=== PATIENT | male | born 1975 | race Caucasian/White ===

== ENCOUNTER 2023-04-16 10:06 | Outpatient (OUT) | payer MEDICARE, SELFPAY ==
[2023-04-16 10:28] LABS: Anion Gap 13.1; BUN Creatinine Ratio 13.8; Calcium 8.4 mg/dL (8.5-10.1); Carbon Dioxide 24.9 mmol/L (21.0-32.0); Chloride 101 mmol/L (98-107); Estimated GFR (African America >60 (>=60); Estimated GFR (Non-African Ame >60 (>=60); Glucose 231 mg/dL (74-106); Sodium 135 mmol/L (136-145)
[2023-04-16 10:58] LABS: Estimated Average Glucose 232 mg/dL; Glycohemoglobin A1C 9.7 % (4.5-6.2)
== END 2023-04-16 10:07 | disposition home or self-care (01) ==
LOC: LAB 10:10
PROVIDERS: PCP Nurse Practitioner; Visit Provider Nurse Practitioner
DX: E11.9 Type 2 diabetes mellitus without complications (principal)
CPT/HCPCS: 36415; 80048; 83036

== ENCOUNTER 2023-06-19 10:40 | Outpatient (OUT) | payer MEDICARE, SELFPAY ==
[2023-06-19 11:36] LABS: Alanine Aminotransferase 39 U/L (16-63); Aspartate Amino Transferase 18 U/L (15-37); Cholesterol 146 mg/dL (<=200); HDL Cholesterol 48 mg/dL (40-60); Triglycerides 220 mg/dL (<=150)
== END 2023-06-19 10:41 | disposition home or self-care (01) ==
LOC: LAB 10:44
PROVIDERS: PCP Nurse Practitioner; Visit Provider Nurse Practitioner
DX: E11.9 Type 2 diabetes mellitus without complications (principal)
CPT/HCPCS: 36415; 80061; 84450; 84460

== ENCOUNTER 2023-07-06 08:44 | Outpatient (OUT) | payer MEDICARE, SELFPAY ==
--- NOTE | 2023-07-06 | CT_ITS ---
[address] [address] Patient Name: MANDO SHELBY MRN: [id number] date: 1975 Sex: M Assigned Patient Location: LAB Current Patient Location: Accession/Order Number: [id number] Exam Date: 07/06/2023 09:30 Report Date: 07/07/2023 01:05 At the request of: ASTER OROSCO Procedure: CT chest w con EXAMINATION: CT chest w con HISTORY: LUNG NODULE follow-up COMPARISON: CT chest 12/26/2022 TECHNIQUE: Multi-planar CT images were obtained without and/or with IV contrast as indicated by examination type. Axial, Coronal, and Sagittal images. Dose reduction techniques were achieved by using automated exposure control and/or adjustment of mA and/or kV according to patient size and/or use of iterative reconstruction technique. FINDINGS: LUNGS: Stable 6 mm nodule anterior lateral right lung base adjacent the major fissure. Stable 13 mm partially calcified granuloma within lingula, stable 4 mm adjacent nodule. PLEURA: No mass, effusion, or pneumothorax. VASCULATURE: No abnormality. MAE: No mass or adenopathy. MEDIASTINUM: No mass or adenopathy. CARDIAC: No enlargement, pericardial thickening, or significant calcification. AORTA: No aneurysm or dissection. CHEST WALL: No mass or axillary adenopathy. BONES: No bone lesion or fracture. LIMITED ABDOMEN: No suspicious findings Limited images of the upper abdomen. OTHER: Negative. CT/CT chest w con IMPRESSION: 1. Stable pulmonary nodules detailed above. Consider follow-up CT chest in another 6 months and 12 months to document stability over a two-year period. Electronically authenticated by: LAURA FISH Date: 07/07/2023 01:05
[2023-07-06 09:12] LABS: Estimated GFR (African America >60 (>=60); Estimated GFR (Non-African Ame >60 (>=60)
== END 2023-07-06 08:45 | disposition home or self-care (01) ==
PROVIDERS: PCP Nurse Practitioner; Visit Provider Nurse Practitioner
DX: R91.8 Other nonspecific abnormal finding of lung field (principal)
CPT/HCPCS: 36415; 71260; 82565; Q9967

== ENCOUNTER 2024-06-13 06:34 | Outpatient (OUT) | payer MEDICARE, SELFPAY ==
--- OUTSIDE RECORDS SUMMARY | 2024-06-13 06:37 | XMS_ITS | CCD ---
Author Organization [facility] Care Team Providers Care Longwall Foreman Name Role Phone Baljit Bryant Primary Care Physician AICHHOLZ, REHAB CARE ASSISTANT JOAN Admitting Unavailable AICHHOLZ, REHAB CARE ASSISTANT JOAN Attending Unavailable AICHHOLZ, REHAB CARE ASSISTANT JOAN Primary Care Unavailable AICHHOLZ, REHAB CARE ASSISTANT JOAN Consulting Unavailable ABE, DR LAURA Ribeiro Consulting Unavailable MATHUR ., DR CHASE Admitting Unavailable MATHUR ., DR CHASE Attending Unavailable AICHHOLZ, REHAB CARE ASSISTANT JOAN Primary Care Unavailable MATHUR ., DR CHASE Consulting Unavailable CINTHIA, DARIUSZ Consulting Unavailable AICHHOLZ, REHAB CARE ASSISTANT JOAN Admitting Unavailable AICHHOLZ, REHAB CARE ASSISTANT JONA Attending Unavailable AICHHOLZ, REHAB CARE ASSISTANT JOAN Primary Care Unavailable AICHHOLZ, REHAB CARE ASSISTANT JOAN Consulting Unavailable AICHHOLZ, REHAB CARE ASSISTANT JOAN Admitting Unavailable AICHHOLZ, REHAB CARE ASSISTANT JOAN Attending Unavailable AICHHOLZ, REHAB CARE ASSISTANT JOAN Primary Care Unavailable AICHHOLZ, REHAB CARE ASSISTANT JOAN Consulting Unavailable AICHHOLZ, REHAB CARE ASSISTANT JOAN Admitting Unavailable AICHHOLZ, REHAB CARE ASSISTANT JOAN Attending Unavailable AICHHOLZ, REHAB CARE ASSISTANT JOAN Primary Care Unavailable AICHHOLZ, REHAB CARE ASSISTANT JOAN Consulting Unavailable AICHHOLZ, REHAB CARE ASSISTANT JOAN Admitting Unavailable AICHHOLZ, REHAB CARE ASSISTANT JOAN Attending Unavailable AICHHOLZ, REHAB CARE ASSISTANT JOAN Primary Care Unavailable AICHHOLZ, REHAB CARE ASSISTANT JOAN Consulting Unavailable AICHHOLZ, REHAB CARE ASSISTANT JOAN Admitting Unavailable AICHHOLZ, REHAB CARE ASSISTANT JOAN Attending Unavailable AICHHOLZ, REHAB CARE ASSISTANT JOAN Primary Care Unavailable AICHHOLZ, REHAB CARE ASSISTANT JOAN Consulting Unavailable AICHHOLZ, JOAN J Primary Care Physician Miroslava Griggs Unavailable Unavailable Bryce Gibson Attending Unavailable Esvin Hill Attending Unavailable Esvin Hill Admitting Unavailable Esvin Hill Admitting Unavailable Esvin Hill Attending Unavailable Demarco Ferreira Attending Unavailable Salvatore WOOTEN Admitting Unavailable Salvatore WOOTEN Attending Unavailable Jason West Admitting Unavailable Jason West Attending Unavailable MD Jason West Attending Unavailable MD Jason West Admitting Unavailable Silvio Sharp Consulting Unavailabl e DO Silvio Sharp Consulting Unavail able Silvio Sharp Consulting Unavailabl e Alesha Christensen Admitting Unavailab Alesha Escalona Attending Unavailab Shannon Rush Attending Unavailable Leandra Wallace Referring Unavailable JOAN OROSCO Attending Unavailable JOAN OROSCO Attending Unavailable Demarco Collins Attending Unavailable Demarco Collins Admitting Unavailable Demarco Collins Attending Unavailable Demarco Collins Referring Unavailable MD Jason West Admitting Unavailable MD Jason West Attending Unavailable Silvio Sharp Consulting Unavailkiet e Silvio Sharp Consulting Unavailabl e Silvio Sharp Consulting Unavailabl e Allergies Allergy Classification Reported Allergen(s) Allergy Type Date of Onset Reaction(s) Facility (14 sources) No Known Medication Allergies; Translations: [No Known Medication Allergies] Propensity to adverse reactions (disorder) [facility] Repository Medications Current Medications Medication Drug Class(es) Dates Sig (Normalized) Sig (Original) 0.5 ML tirzepatide 10 MG/ML Auto-Injector [Mounjaro] (2 sources) Start: 11-05-2022 Mounjaro 5 mg/0.5 mL subcutaneous solution Refills(s) 0 Start Date: 11/05/22 Status: Ordered acetaminophen 325 mg oral tablet (1 source) Start: 03-19-2024 take 3 tablets by mouth every six hours acetaminophen 325 mg Tab 975 mg = 3 tab(s), Oral, q6hr, Refills(s) 0 Start Date: 03/19/24 Status: Ordered amoxicillin 875 mg / clavulanate 125 mg oral tablet (1 source) Penicillin-class Antibacterial Start: 11-05-2022 amoxicillin-clavul anate 875 mg-125 mg Tab Refill(s) 0 Start Date: 11/05/22 Status: Ordered atorvastatin 20 mg oral tablet (2 sources) HMG-CoA Reductase Inhibitor Start: 08-14-2023 atorvastatin 20 mg Tab Daily, Refills(s) 0 Start Date: 08/14/23 Status: Ordered busPIRone hydrochloride 5 mg oral tablet (3 sources) Start: 11-01-2022 take 1 mg by mouth twice daily busPIRone 5 mg Tab mg tab(s), Oral, BID, Refills(s) 0 Start Date: 11/01/22 Status: Ordered cephalexin 500 mg oral capsule (1 source) Cephalosporin Antibacterial Start: 11-05-2022 take 1 capsule by mouth every twelve hours Keflex 500 mg Cap 500 mg = 1 cap(s), Oral, q12hr, # 60 caplet(s), Refills(s) 1, Pharmacy: [facility] #[id number], 185, cm, 11/05/22 10:09:00 EST, Height/Length Dosing, 168, kg, 11/05/22 10:09:00 EST, Weight Dosing Start Date: 11/05/22 Status: Ordered docusate sodium 100 mg oral capsule (1 source) Start: 03-19-2024 End: 03-26-2024 take 1 capsule by mouth twice daily docusate sodium 100 mg Cap 100 mg = 1 cap(s), Oral, BID, X 7 day(s), # 14 cap(s), Refills(s) 0, Pharmacy: [facility] #[id number], 185.4, cm, 03/14/24 17:53:00 EDT, Height/Length Dosing, 182, kg, 03/14/24 17:53:00 EDT, Weight Dosing Start Date: 03/19/24 Stop Date: 03/26/24 Status: Ordered glimepiride 4 mg oral tablet (3 sources) Sulfonylurea Start: 11-01-2022 take 1 mg by mouth once daily glimepiride 4 mg Tab mg tab(s), Oral, Daily, Refills(s) 0 Start Date: 11/01/22 Status: Ordered losartan potassium 25 mg oral tablet (3 sources) Angiotensin 2 Receptor Jesus Start: 11-01-2022 take 1 mg by mouth once daily losartan 25 mg Tab mg tab(s), Oral, Daily, Refills(s) 0 Start Date: 11/01/22 Status: Ordered metFORMIN hydrochloride 1000 mg oral tablet (3 sources) Biguanide Start: 11-01-2022 take 1 mg by mouth once daily metformin 1000 mg oral tablet, extended release mg tab(s), Oral, Daily, Refills(s) 0 Start Date: 11/01/22 Status: Ordered minocycline 100 mg oral capsule (3 sources) Tetracycline-class Drug Start: 11-01-2022 take 1 mg by mouth every twelve hours minocycline 100 mg Cap mg cap(s), Oral, q12hr, Refills(s) 0 Start Date: 11/01/22 Status: Ordered Mounjaro 5 mg/0.5 mL subcutaneous solution (1 source) Start: 11-05-2022 Mounjaro 5 mg/0.5 mL subcutaneous solution Refills(s) 0 Start Date: 11/05/22 Status: Ordered 24 hr oxybutynin chloride 5 mg extended release oral tablet (2 sources) Cholinergic Muscarinic Antagonist Start: 08-14-2023 oxybutynin 5 mg ER Tab Daily, Refills(s) 0 Start Date: 08/14/23 Status: Ordered oxyCODONE hydrochloride 5 mg oral tablet (1 source) Opioid Agonist Start: 03-19-2024 End: 03-22-2024 oxyCODONE 5 mg Tab 5 mg = 1 tab(s), Oral, q6hr, PRN Pain 8-10, X 3 day(s), # 12 tab(s), Refills(s) 0, [facility][id number], 185.4, cm, 03/14/24 17:53:00 EDT, Height/Length Dosing, 182, kg, 03/14/24 17:53:00 EDT, Weight Dosing Start Date: 03/19/24 Stop Date: 03/22/24 Status: Ordered 24 hr venlafaxine 75 mg extended release oral capsule (3 sources) Serotonin and Norepinephrine Reuptake Inhibitor Start: 11-01-2022 take 1 mg by mouth once daily venlafaxine 75 mg Cap-ER mg cap(s), Oral, Daily, Refills(s) 0 Start Date: 11/01/22 Status: Ordered Completed/Discontinued Medications Medication Drug Class(es) Dates Sig (Normalized) Sig (Original) insulin glargine 100 unt/ml injectable solution (2 sources) Insulin Analog Start: 03-17-2024 End: 03-18-2024 insulin glargine 100 units/mL SubQ Emilee 10 mL 10 unit(s) = 0.1 mL, Injection-Insulin, SubCutaneous, Start date 03/18/24 9:00:00 PM EDT, 03/15/24 23:25:00 EDT Start Date: 03/18/24 Stop Date: 03/18/24 Status: Completed Insulin Lispro (3 sources) Insulin Analog Start: 03-18-2024 End: 03-18-2024 Insulin Lispro Sliding Scale 0-10 unit(s), Injection-Insulin, SubCutaneous, Start date 03/18/24 9:00:00 PM EDT Start Date: 03/18/24 Stop Date: 03/18/24 Status: Completed Start: 03-05-2024 End: 03-05-2024 Insulin Lispro Sliding Scale 0-10 unit(s), Injection-Insulin, SubCutaneous, Start date 03/05/24 6:00:00 AM EDT Start Date: 03/05/24 Stop Date: 03/05/24 Status: Completed Start: 03-05-2024 End: 03-04-2024 Insulin Lispro Sliding Scale 0-10 unit(s), Injection-Insulin, SubCutaneous, Start date 03/05/24 12:00:00 AM EDT Start Date: 03/05/24 Stop Date: 03/04/24 Status: Completed Problems Active Problems Problem Classification Problem Date Documented Da te Episodic/Chronic Abdominal hernia (10 sources) Hernia of anterior abdominal wall; Translations: [Unspecified abdominal hernia without obstruction or gangrene] Onset: 11-05-2022 Episodic Anxiety disorders (3 sources) Anxiety 11-05-2022 Chronic Diabetes mellitus without complication (7 sources) Type 2 diabetes mellitus; Translations: [Type 2 diabetes mellitus without complications] Onset: 11-27-2022 11-01-2022 Chronic Inflammatory conditions of male genital organs (7 sources) Inflammation of scrotum; Translations: [Inflammatory disorders of scrotum] Onset: 11-05-2022 Episodic Intestinal obstruction without hernia (1 source) Intestinal obstruction; Translations: [Unspecified intestinal obstruction, unspecified as to partial versus complete obstruction] Onset: 03-04-2024 Episodic Other gastrointestinal disorders (1 source) Swollen abdomen; Translations: [Other intra-abdominal and pelvic swelling, mass and lump] Onset: 11-05-2022 Episodic Other gastrointestinal disorders (3 sources) Groin mass 11-05-2022 Episodic Other gastrointestinal disorders (1 source) Other intra-abdominal and pelvic swelling, mass and lump; Translations: [OTH INTRA-ABD PELV SWELL MASS LUMP] Onset: 12-01-2022 Episodic Other lower respiratory disease (4 sources) Solitary pulmonary nodule; Translations: [SOLITARY PULMONARY NODULE] Onset: 12-26-2022 Episodic Other nutritional; endocrine; and metabolic disorders (3 sources) Morbid obesity 11-01-2022 Chronic Other nutritional; endocrine; and metabolic disorders (1 source) Morbid (severe) obesity due to excess calories; Translations: [MORBID SEVERE OBES D/T EXCESS BRIE] Onset: 05-15-2022 Chronic Other skin disorders (4 sources) Hidradenitis suppurativa; Translations: [HIDRADENITIS SUPPURATIVA] Onset: 10-29-2022 Episodic Substance-related disorders (3 sources) Smoker 11-01-2022 Chronic Past or Other Problems Problem Classification Problem Date Documented Da te Episodic/Chronic Skin and subcutaneous tissue infections (4 sources) Cutaneous abscess of right lower limb; Translations: [CUTANEOUS ABSCESS RIGHT LOWER LIMB] Onset: 06-18-2022 Episodic Results Test Name Value Interpretation Reference Range Facility Reminderson 04-16-2024 Reminders Reminders From: Joan Cutler MA To: N - Clinical; Sent: 04/16/2024 15:36:46 EDT Show up: 03/04/2034 15:36:00 EDT Subject: Colonoscopy recall 10 years Reminder/Recall Last colonoscopy: 04/03/2024 Repeat: 10 years Reason: Screening colonoscopy Normal [facility] Operative Reporton Operative Report Operative Report Patient: CHRISTIAN SHELBY Age: 48 years Sex: Male : 1975 Associated Diagnoses: None Author: Demarco Collins MD Pre-Procedure Procedure Date 04/03/2024 07:47:00 . Procedure Type: Esophagogastroduodenoscopy with biopsy. Procedure provider Performed by Demarco Collins MD. Current history and physical Documented on chart. Informed Consent After discussing the rationale, risks and benefits, and alternatives to this procedure, the patient provided signed consent for the procedure. Pre-procedure diagnosis: Upper gastrointestinal bleed: melena while admitted inpatient. ASA Classification: Class III. . Monitoring: See anesthesia record. . Procedure The procedure was performed in the hospital. See anesthesia record for sedation given during procedure. The patient was positioned starting in the left lateral decubitus position. Endoscope type used was an adult-size, introduced orally, advanced to the 3rd portion of the duodenum. No difficulty was encountered during the procedure. Views were excellent. Gastric biopsies were taken of the antrum. Duodenal biopsies were taken of the first portion of the duodenum. The patient tolerated the procedure well. Findings Examination of the esophagus revealed a normal esophagus. The squamocolumnar junction appeared regular. Gastritis was identified at the antrum. The affected area was erosive. The gastritis is mildly severe. Multiple biopsies were collected. Duodenitis was identified at the 1st portion of the duodenum. The duodenitis is moderately severe. Multiple biopsies were collected. Post-Procedure Complications: none. Estimated blood loss: none. Specimens: sent to pathology. Devices/ implants: none left in place. Impression and Plan EGD: Course: Progressing as expected. Normal [facility] Comment on above: Result Comment: Elec tronically Signed By: Demarco Collins MD\.br\Date and Time Signed: 04/10/24 07:50 EDT Operative Report Operative Report Patient: CHRISTIAN SHELBY Age: 48 years Sex: Male : 1975 Associated Diagnoses: None Author: Demarco Collins MD Pre-Procedure Procedure Date 04/03/2024 07:46:00 . Procedure Type: Colonoscopy. Procedure provider Performed by Demarco Collins MD. Current history and physical Documented on chart. Colonoscopy ([id number]) on 04/03/2024 at 48 Years. Comments: 04/03/2024 15:52 Flores Tesfaye RN normal Esophagogastroduodenoscopy ([id number]) on 04/03/2024 at 48 Years. Comments: 04/03/2024 15:53 EDT - Stumbo RN, Flores duodenitis, antral biiopsy Drainage of scrotal abscess ([id number]) on 03/21/2016 at 40 Years. Tonsillectomy ([id number]).. Past Medical History No active or resolved past medical history items have been selected or recorded.. Family History Entire family history is negative.. Procedure History Colonoscopy ([id number]) on 04/03/2024 at 48 Years. Comments: 04/03/2024 15:52 EDT - Rupesh WILHELM, Flores normal Esophagogastroduodenoscopy ([id number]) on 04/03/2024 at 48 Years. Comments: 04/03/2024 15:53 EDT - Rupesh RN, Flores duodenitis, antral biiopsy Drainage of scrotal abscess ([id number]) on 03/21/2016 at 40 Years. Tonsillectomy ([id number]).. Colorectal neoplasm risk assessment Average risk. Informed Consent After discussing the rationale, risks and benefits, and alternatives to this procedure, the patient provided signed consent for the procedure. Pre-procedure diagnosis: No prior colonoscopy. Medications (Selected) Prescriptions Prescribed Carafate 1 gram Tab: 1 gm = 1 tab(s), Oral, QID, X 60 day(s), # 240 tab(s), Refills(s) 0, Pharmacy: [facility] #[id number], 185, cm, 04/03/24 12:38:00 EDT, Height/Length Dosing, 182, kg, 04/03/24 12:38:00 EDT, Weight Dosing Pantoprazole [address] Tab: 20 mg = 1 tab(s), Oral, BID, X 60 day(s), # 120 tab(s), Refills(s) 0, Pharmacy: [facility]/pharmacy #[id number], 185, cm, 04/03/24 12:38:00 EDT, Height/Length Dosing, 182, kg, 04/03/24 12:38:00 EDT, Weight Dosing Documented Medications Documented Farxiga 5 mg oral tablet: 5 mg = 1 tab(s), Oral, Daily, Refills(s) 0 acetaminophen 325 mg Tab: 975 mg = 3 tab(s), Oral, q6hr, Refills(s) 0 atorvastatin 20 mg Tab: Daily, Refills(s) 0, High cholesterol busPIRone 5 mg Tab: mg tab(s), Oral, BID, Refills(s) 0 glimepiride 4 mg Tab: mg tab(s), Oral, Daily, Refills(s) 0 losartan 25 mg Tab: mg tab(s), Oral, Daily, Refills(s) 0 metformin 1000 mg oral tablet, extended release: mg tab(s), Oral, Daily, Refills(s) 0 oxybutynin 5 mg ER Tab: Daily, Refills(s) 0 venlafaxine 75 mg Cap-ER: mg cap(s), Oral, Daily, Refills(s) 0 ASA Classification: Class III. . Monitoring: See anesthesia record. . Procedure The procedure was performed in the hospital. See anesthesia record for sedation given during procedure. Rectal exam was performed and was normal. The patient was positioned starting in the left lateral decubitus position. Endoscope type used was an adult-size. The endoscope was lubricated then introduced through the anus. The scope was advanced to the cecum. No difficulties encountered during the procedure. The bowel preparation quality was good and was adequate (see polyps greater than or equal to 6 millimeters). The patient tolerated the procedure well. Findings The bowel was normal throughout the extent examined. Post-Procedure Complications: none. Estimated blood loss: none. Specimens: none. Devices/ implants: none left in place. Impression and Plan Course: Progressing as expected. Recommendations: Repeat colonoscopy:: In 10 years. Follow-up:: Schedule follow-up with general practitioner in 14 days. Diet:: Regular diet. Medication resumption:: Continue current medications. Return to activities:: After 24 hours. Normal [facility] Comment on above: Result Comment: Elec tronically Signed By: Karina MARTINEZ, Demarco Martins\.br\Date and Time Signed: 04/10/24 07:47 EDT Surgical Pathology Reporton 04-08-2024 Surgical Pathology Report [facility] [address] [place] [address]- Surgical Pathology Report Collected Date/Time: 04/03/2024 15:25 EDT Pathologist: Pola Mcneil MD Received Date/Time: 04/06/2024 09:59 EDT Karina MARTINEZ, Demarco Collins MD, Demarco Simpson Surgical Pathology Report - 04/08/2024 12:58 EDT - Auth (Verified) Final Diagnosis A: SMALL BOWEL, DUODENUM, BIOPSY: - Small bowel mucosa with focal foveolar metaplasia. - No evidence of celiac disease identified. B: STOMACH, ANTRUM, BIOPSY: - Antral and oxyntic- type gastric mucosa with reactive gastropathy. - No Helicobacter pylori microorganisms identified with immunohistochemical stain. (Electronic Signature) Yan. Ewa MD 04/08/2024 12:58 Clinical Information Pre-Op Diagnosis: Screening, nausea Procedure: EGD Specimen(s) Received A: Duodenal biopsy B: Antral biopsy Gross Description A: Received in formalin labeled with patient name, number, and duodenal biopsy are two fragments of raya tissue measuring 0.1and 0.2 cm in greatest dimension. The specimen is entirely submitted in one cassette. B: Received in formalin labeled with patient name, number, and antral biopsy are two fragments of raya tissue measuring 0.2 and 0.4 cm in greatest dimension. The specimen is entirely submitted in one cassette. (DC) DC:[facility] Microscopic Description A&B: Microscopic examination performed unless gross only specified. The use of one or more reagents in the above tests is regulated as an analyte specific reagent (ASR). The test or tests are ordered following initial H&E microscopic examination. The performance characteristics were determined by the [facility]. They have not been cleared or approved by the [place] Food and Drug Administration. The FDA has determined that such clearance or approval is not necessary. These tests are used for clinical purposes. They should not be regarded as investigational or for research. Appropriate positive and negative controls are performed and are acceptable. Normal [facility] Comment on above: Performed By: #### [id number] #### [facility] [address] [place] [address] Main OR Intraoperative Recor don 04-06-2024 Main OR Intraoperative Record Main OR Intraoperative Record IntraOp Document Type FT Summary Primary Physician: Demarco Collins MD Finalized Date/Time: 04/06/24 08:26:26 Pt. Name: CHRISTIAN SHELBY D.O.B./Sex: 1975 Male Med Rec #: [id number] Physician: Demarco Collins MD Financial #: [id number] Pt. Type: O Room/Bed: / Admit/Disch: 04/03/24 13:54:24 - 04/03/24 23:59:59 Institution: Case Times FT Entry 1 Patient Times In Room 04/03/24 15:12:00 Out Room 04/03/24 15:44:00 Procedure Times Start 04/03/24 15:19:00 Stop 04/03/24 15:40:00 Anesthesia Times Start 04/03/24 15:12:00 Stop 04/03/24 15:44:00 Time at [facility] 04/03/24 15:34:00 Last Modified By: Isabel WILHELM, Isatu 04/03/24 15:44:12 General Comments: 1523-EGD completed/AW RN 1527-Colonoscopy started/AW RN 04/06/24 Chart opened to review and send charges [facility]oth CSFA Case Attendance FT Entry 1 Entry 2 Entry 3 Case Attendee Cruzito BOBBY, Demarco Suárez, Rosas Anaya Role Performed Anesthesiologist Staff - Other Scrub - Primary Systems Security Analyst Time In 04/03/24 15:12:00 04/03/24 15:12:00 04/03/24 15:12:00 Time Out 04/03/24 15:44:00 04/03/24 15:44:00 04/03/24 15:44:00 Procedure EGD AND COLONOSCOPY(.) EGD AND COLONOSCOPY(.) EGD AND COLONOSCOPY(.) Comments Dr. Layne supervising help in room Last Modified By: Isabel RN, Isatu Hall RN, Isatu Hall RN, Isatu 04/03/24 15:44:13 04/03/24 15:44:13 04/03/24 15:44:13 Entry 4 Entry 5 Case Attendee Karina MARTINEZ, Demarco Hall RN, Isatu Role Performed Surgeon - Primary Distribution Sales Manager - Primary Time In 04/03/24 15:12:00 04/03/24 15:12:00 Time Out 04/03/24 15:44:00 04/03/24 15:44:00 Procedure EGD AND COLONOSCOPY(.) EGD AND COLONOSCOPY(.) Comments Last Modified By: Isabel RN, Isatu Hall RN, Isatu 04/03/24 15:44:13 04/03/24 15:44:13 Perioperative Protocols FT Pre-Care Text: Implements protective measures prior to operative or invasive procedure, confirms identity before the operative or invasive procedure, verifies operative procedure, surgical site, and laterality Entry 1 Procedure(s) EGD AND COLONOSCOPY(.) Patient Identity Birthday, ID Band Verified (select at Check, Patient least 2): Participation Consents / H and P Anesthesia Consent, Operative Site N/A Verified H&P, Surgery/Procedure Marking Verified Consent Surgical Site No Laterality Verified n/a Verified Procedure Verified Yes Correct Patient Yes Position Verified Availability Equipment, Medication Prep Dry n/a Verified (If Applicable) PreOp Antibiotic No Time Out Cruzito BOBBY, Demarco Wray, Given Participants Nilda Suárez, Rosas Walker, Karina MARTINEZ, Demarco Martins, Isatu Hall RN Time Out Complete 04/03/24 15:15:00 Outcomes Met? Yes Last Modified By: Isatu Hall RN 04/03/24 15:31:05 Post-Care Text: The patient is free from signs and symptoms of injury caused by extraneous objects Allergy Information FT Pre-Care Text: Verifies allergies Entry 1 Allergies Reviewed? Yes Allergies Reviewed Self/Patient With Outcomes Met? Yes Last Modified By: Isatu Hall RN 04/03/24 15:31:20 Post-Care Text: The patient received appropriate medication(s) safely administered during the perioperative period Surgical Procedures FT Entry 1 Procedure Description Procedure EGD AND COLONOSCOPY Modifiers . Surgeon Description EGD with duodenal and antral biopsies. Colonoscopy Primary Procedure Yes Primary Surgeon Demarco Collins MD Start 04/03/24 15:19:00 Stop 04/03/24 15:40:00 Anesthesia Type General Surgical Service General Wound Class 2 - Clean-Contaminated Last Modified By: Isatu Hall RN 04/03/24 15:44:09 General Case Data FT Pre-Care Text: Classifies surgical wound, implements aseptic technique, initiates traffic control Entry 1 Case Information OR ENDO 1 FT Case Level Level 2 Wound Class 2 - Clean-Contaminated Specialty General ASA Class 4 Preop Diagnosis SCREENING & NAUSEA Postop Same As Preop No Postop Diagnosis EGD- duodenitis. Normal Outcomes Met? Yes Colonoscopy Last Modified By: Isatu Hall RN 04/03/24 15:49:08 Post-Care Text: The patient is free from signs and symptoms of infection Skin Assessment (Pre Procedure) FT Pre-Care Text: Implements protective measures to prevent skin/ tissue injury due to thermal or mechanical sources Evaluates for signs and symptoms of physical injury to skin and tissue Entry 1 Skin Integrity Intact, [place], Warm, & Skin Abnormality No Dry Outcomes Met? Yes Last Modified By: Isatu Hall RN 04/03/24 15:34:01 Post-Care Text: The patient is free from signs and symptoms of injury caused by extraneous objects Patient Positioning FT Pre-Care Text: Identifies physical alterations that require additional precautions for procedure-specific positioning, verifies presence of prosthetics or corrective devices, positions the patient, evaluates the patient for signs and symptoms of injury as a (more content not included)... Normal [facility] Discharge Instructionson Discharge Instructions Discharge Instructions CHRISTIAN SHELBY :1975 Visit Date:04/03/2024 Inpatient Discharge Instructions Your Care Team Admitting Physician - Demarco Collins MD Referring Physician - Demarco Collins MD Reason for Your Visit SCREENING & NAUSEA Your Diagnosis Encounter for screening colonoscopy Melena Tests Performed Pathology Tissue Exam -- Results Pending -- Please visit your patient portal for your results or contact your primary care physician. This Is Your Medications List acetaminophen (acetaminophen 325 mg Tab) atorvastatin (atorvastatin 20 mg Tab) busPIRone (busPIRone 5 mg Tab) dapagliflozin (Farxiga 5 mg oral tablet) glimepiride (glimepiride 4 mg Tab) losartan (losartan 25 mg Tab) metformin (metformin 1000 mg oral tablet, extended release) oxybutynin (oxybutynin 5 mg ER Tab) pantoprazole (Pantoprazole [address] Tab) sucralfate (Carafate 1 gram Tab) venlafaxine (venlafaxine 75 mg Cap-ER) Procedure History Colonoscopy (04/03/2024), Esophagogastroduodenoscopy (04/03/2024), Drainage of scrotal abscess (03/21/2016), Tonsillectomy. Discharge Vitals Temperature (Temporal Artery) 36.0 ?C Heart Rate (Monitored) 82 Respiratory Rate 18 Blood Pressure 147/87 Height 185 cm Weight 182 kg What to do next Instructions From Your Doctor No qualifying data available. Previously Scheduled Follow-Up Appointments Saturday 3:00 PM EDT Where: [facility] New Follow Up Appointments after Discharge Follow Up with Karina MARTINEZ, HERIBERTO Payton When: Comments: will call with biopsy results Where: Medications What How Much When Why Instructions Next Dose New pantoprazole (Pantoprazole [address] Tab) 1 Tablets By Mouth 2 times a day Melena Encounter for screening colonoscopy Duration: 60 Days Pickup at [facility]/pharmacy #[id number] New sucralfate (Carafate 1 gram Tab) 1 Tablets By Mouth 4 times a day Melena Encounter for screening colonoscopy Duration: 60 [id number] Unchanged acetaminophen (acetaminophen 325 mg Tab) 3 Tablets By Mouth Every 6 hours Ventral hernia Unchanged atorvastatin (atorvastatin 20 mg Tab) Every day Unchanged busPIRone (busPIRone 5 mg Tab) By Mouth 2 times a day Unchanged dapagliflozin (Farxiga 5 mg oral tablet) 1 Tablets By Mouth Every day Unchanged glimepiride (glimepiride 4 mg Tab) By Mouth Every day Unchanged losartan (losartan 25 mg Tab) By Mouth Every day Unchanged metformin (metformin 1000 mg oral tablet, extended release) By Mouth Every day Unchanged oxybutynin (oxybutynin 5 mg ER Tab) Every day Unchanged venlafaxine (venlafaxine 75 mg Cap-ER) By Mouth Every day Pharmacy Information [facility]/pharmacy #[id number]: [address], [place] [id number] [phone] Test Results No qualifying data available. Allergies No Known Medication Allergies Problems Ongoing - Any problem that you are currently receiving treatment for. Abdominal hernia Anxiety Encounter for screening colonoscopy Left groin mass Melena Morbid obesity Recurrent scrotal infection Scrotal abscess Smoker Type II diabetes mellitus [employer] Duodenitis Duodenitis is inflammation of the lining of the first part of the small intestine (duodenum). It is commonly caused by an infection from bacteria, which may also lead to open sores (ulcers) in the intestine. Duodenitis may develop suddenly and last for a short time (acute), or it may develop gradually and last for months or years (chronic). What are the causes? The most common cause of duodenitis is an infection from a type of bacteria called Helicobacter pylori (H. pylori). Other causes of this condition include: ? Long-term use of NSAIDs. ? Excessive use of alcohol. ? An infection of the small intestine caused by the Giardia parasite (giardiasis). ? Crohn's disease. ? Certain diseases of the body's defense system (immune system). ? Certain treatments for cancer. What increases the risk? The following factors may make you more likely to develop this condition: ? Smoking cigarettes. ? Drinking alcohol. ? Having a family history of duodenitis. ? Taking NSAIDs. ? Eating a high-fat diet. What are the signs or symptoms? Symptoms of this condition may include: ? Gnawing or burning pain in the upper center of the abdomen (epigastric pain). This may get worse when the stomach is empty and may get better after eating. ? Abdominal cramps. ? Nausea and vomiting. ? Bloody vomit. ? Stools that are bloody, dark, or look like tar. ? Diarrhea. ? Weight loss. ? Fatigue. How is this diagnosed? This condition may be diagnosed based on your medical history and a physical exam. You may also have tests, such as: ? Blood tests. ? Stool tests. ? A test that checks the gases in your breath. ? An X-ray that is done after you swallow a liquid (barium) (more content not included)... Normal [facility] Comment on above: Result Comment: Elec tronically Signed By: Flores Goddard RN\.br\Date and Time Signed: 04/03/24 15:59 EDT Inpatient Patient Summaryon 04-03-2024 Inpatient Patient Summary Inpatient Patient Summary [place] [id number] [facility] Clinical Discharge Instructions PERSON INFORMATION Name: CHRISTIAN SHELBY PHYSICIANS Admitting Physician: Demarco Collins MD Attending Physician: Demarco Collins MD PCP: JOAN OROSCO CNP Discharge Diagnosis: Comment: PATIENT EDUCATION INFORMATION Instructions: Upper Endoscopy, Adult, Care After; Colonoscopy, Adult, Care After Medication Leaflets: Follow up: Type Location Start Finish State Trauma Subsequent Follow Up ([facility]) [facility] 04/03/2024 3:00 PM 04/03/2024 3:15 PM Confirmed MEDICATION LIST New Medications [facility]/pharmacy #[id number], [address], [place] [id number], [phone] pantoprazole (Pantoprazole [address] Tab) 1 Tablets By Mouth 2 times a day for 60 Days. Refills: 0. sucralfate (Carafate 1 gram Tab) 1 Tablets By Mouth 4 times a day for 60 Days. Refills: 0. Medications to Continue with No Changes Other Medications acetaminophen (acetaminophen 325 mg Tab) 3 Tablets By Mouth every 6 hours. atorvastatin (atorvastatin 20 mg Tab) every day. busPIRone (busPIRone 5 mg Tab) By Mouth 2 times a day. dapagliflozin (Farxiga 5 mg oral tablet) 1 Tablets By Mouth every day. glimepiride (glimepiride 4 mg Tab) By Mouth every day. losartan (losartan 25 mg Tab) By Mouth every day. metformin (metformin 1000 mg oral tablet, extended release) By Mouth every day. oxybutynin (oxybutynin 5 mg ER Tab) every day. venlafaxine (venlafaxine 75 mg Cap-ER) By Mouth every day. Comment: Normal [facility] Main OR PACU I Recordon 03-10 Main OR PACU I Record Main OR PACU I Record PACU Phase I Document Type FT Summary Primary Physician: Demarco Collins MD Finalized Date/Time: 04/03/24 16:54:21 Pt. Name: CHRISTIAN SHELBY/Sex: 1975 Male Med Rec #: [id number] Physician: Demarco Collins MD Financial #: [id number] Pt. Type: O Room/Bed: / Admit/Disch: 04/03/24 13:54:24 - Institution: Case Times PACU I FT Pre-Care Text: Identifies barriers to communication and implements measures to provide psychological support Develops individualized plan of care, and ensures continuity of care Maintains patient's dignity and privacy, and maintains patient confidentiality Identifies and reports philosophical, cultural, and spiritual beliefs and values Identifies individual values and wishes concerning care Implements aseptic technique, and administers prescribed antibiotic therapy and immunizing agents as ordered Evaluates postoperative tissue perfusion Implements thermoregulation measures, and monitors body temperature Evaluates postoperative respiratory status Evaluates postoperative cardiac status Evaluates postoperative neurological status Assesses pain control, collaborated in initiating patient-controlled analgesia and implements alternative methods of pain control Verifies allergies, administers prescribed medications and solutions, evaluates response to medications Entry 1 In PACU I 04/03/24 15:45:00 Discharge from PACU 04/03/24 16:15:00 I Outcomes Met? Yes Last Modified By: Flores Goddard RN 04/03/24 16:30:15 Post-Care Text: The patient demonstrates knowledge of the expected response to the operative or invasive procedure The patient's care is consistent with the individualized perioperative plan of care The patient's right to privacy is maintained The patient's value system, lifestyle, ethnicity, and culture are considered, respected, and incorporated into the perioperative plan of care The patient participates in decisions affecting his or her perioperative plan of care The patient is free from signs and symptoms of infection The patient has wound/tissue perfusion consistent with or improved from baseline levels established preoperatively The patient is at or returning to normothermia at the conclusion of the immediate postoperative period The patient's respiratory function is consistent with or improved from baseline levels established preoperatively The patient's cardiovascular status is consistent with or improved from baseline levels established preoperatively The patient's cardiovascular status is consistent with or improved from baseline levels established preoperatively The patient demonstrates and/or reports adequate pain control throughout the perioperative period The patient received appropriate medication(s), safely administered during the perioperative period Acuity Level PACU I FT Entry 1 Start Time 04/03/24 15:45:00 Stop Time 04/03/24 16:15:00 Acuity Level Acuity Level I Last Modified By: Flores Goddard RN 04/03/24 16:31:07 Finalized By: Meenakshi Gerber RN Document Signatures Signed By: Flores Goddard RN 04/03/24 16:35 Meenakshi Gerber RN 04/03/24 16:54 Nahomy [facility] Main OR Preoperative Recordo n 04-03-2024 Main OR Preoperative Record Main OR Preoperative Record Holding Area Document Type FT Summary Primary Physician: Demarco Collins MD Finalized Date/Time: 04/03/24 14:32:23 Pt. Name: CHRISTIAN SHELBY /Sex: 1975 Male Med Rec #: [id number] Physician: Demarco Collins MD Financial #: [id number] Pt. Type: O Room/Bed: / Admit/Disch: 04/03/24 13:54:24 - Institution: Case Times Holding FT Pre-Care Text: Verifies consent for planned procedure, identifies individual values and wishes concerning care, includes family members in perioperative teaching Secures patient's records' belongings, and valuables, maintains patient's dignity and privacy, and maintains patient confidentiality Entry 1 In Holding 04/03/24 14:16:00 Outcomes Met? Yes Last Modified By: Cynthia Allen RN 04/03/24 14:23:39 Post-Care Text: The patient participates in decisions affecting his or her perioperative plan of care The patient's right to privacy is maintained Surgery Checklist FT Entry 1 Patient Birthday, ID Band Procedure History and Physical, Identification: Check, Patient Verification: Surgical Consent, With Participation Patient NPO after Midnight: Yes Results Reviewed Clear/yellow Comments: Personal Items None Complaints of Pain: No Comment: Pain Comment: Denies Operative Site n/a Marking: Availability Equipment Verified: Does Patient Smoke No Patient states Yes Comment - Adult postop adult Supervision supervision available Case Cancelled in No Holding Area see comments below for reason Last Modified By: Cynthia Allen RN 04/03/24 14:25:29 General Comments: Pt completed prep at 1130 and remained NPO since/ERYNRN Finalized By: Cynthia Allen RN Document Signatures Signed By: Cynthia Allen RN 04/03/24 14:32 Normal [facility] Outpatient Surgery Discharge Instructionon 04-03-2024 Outpatient Surgery Discharge Instruction Outpatient Surgery Discharge Instruction [place] [id number] Patient Discharge Instructions PERSON INFORMATION Name: CHRISTIAN SHELBY Date of : 1975 Current Date: 04/03/2024 15:54:11 PHYSICIANS Admitting Physician: Demarco Collins MD Discharge Diagnosis: CHRISTIAN SHELBY has been given the following list of follow-up instructions, prescriptions, and patient education materials: IF UNABLE TO CONTACT YOUR PHYSICIAN AND YOU FEEL IT IS AN EMERGENCY, GO TO THE NEAREST EMERGENCY ROOM OR CALL 911 HERON Landry DUANE G, have received the attached patient education materials/instructions and have verbalized understanding: May we do a follow up call? Yes No I was present when discharge instructions were given __ Patient Signature Date Clinican/Nurse Signature Date Follow up: Type Location Start Finish State Trauma Subsequent Follow Up ([facility]) [facility] 04/03/2024 3:00 PM 04/03/2024 3:15 PM Confirmed Pharmacy Information: You may receive a survey from [employer] asking you to rate your care experience. Your feedback is important and will help us understand what we do well and how we can improve the quality of care we provide to you, your loved ones and our community. It?s an honor to serve you. Thank you for choosing [facility] HERE ARE THE MEDICATION CHANGES THAT OCCURRED DURING YOUR HOSPITAL STAY New Medications [facility] #[id number], [address], [place] [id number], [phone] pantoprazole (Pantoprazole [address] Tab) 1 Tablets By Mouth 2 times a day for 60 Days. Refills: 0. sucralfate (Carafate 1 gram Tab) 1 Tablets By Mouth 4 times a day for 60 Days. Refills: 0. Medications to Continue with No Changes Other Medications acetaminophen (acetaminophen 325 mg Tab) 3 Tablets By Mouth every 6 hours. atorvastatin (atorvastatin 20 mg Tab) every day. busPIRone (busPIRone 5 mg Tab) By Mouth 2 times a day. dapagliflozin (Farxiga 5 mg oral tablet) 1 Tablets By Mouth every day. glimepiride (glimepiride 4 mg Tab) By Mouth every day. losartan (losartan 25 mg Tab) By Mouth every day. metformin (metformin 1000 mg oral tablet, extended release) By Mouth every day. oxybutynin (oxybutynin 5 mg ER Tab) every day. venlafaxine (venlafaxine 75 mg Cap-ER) By Mouth every day. PATIENT EDUCATION INFORMATION Instructions: Upper Endoscopy, Adult, Care After After the procedure, it is common to have a sore throat. It is also common to have: ? Mild stomach pain or discomfort. ? Bloating. ? Nausea. Follow these instructions at home: The instructions below may help you care for yourself at home. Your health care provider may give you more instructions. If you have questions, ask your health care provider. ? If you were given a sedative during the procedure, it can affect you for several hours. Do not drive or operate machinery until your health care provider says that it is safe. ? If you will be going home right after the procedure, plan to have a responsible adult: ? Take you home from the hospital or clinic. You will not be allowed to drive. ? Care for you for the time you are told. ? Follow instructions from your health care provider about what you may eat and drink. ? Return to your normal activities as told by your health care provider. Ask your health care provider what activities are safe for you. ? Take [id number]-nhewvwy and prescription medicines only as told by your health care provider. Contact a health care provider if you: ? Have a sore throat that lasts longer than one day. ? Have trouble swallowing. ? Have a fever. Get help right away if you: ? Vomit blood or your vomit looks like coffee grounds. ? Have bloody, black, or tarry stools. ? Have a very bad sore throat or you cannot swallow. ? Have difficulty breathing or very bad pain in your chest or abdomen. These symptoms may be an emergency. Get help right away. Call 911. ? Do not wait to see if the symptoms will go away. ? Do not drive yourself to the hospital. Summary ? After the procedure, it is common to have a sore throat, mild stomach discomfort, bloating, and nausea. ? If you were given a sedative during the procedure, it can affect you for several hours. Do not drive until your health care provider says that it is safe. ? Follow instructions from your health care provider about what you may eat and drink. ? Return to your normal activities as told by your health care provider. This information is not intended to replace advice given to you by your health care pro (more content not included)... Normal [facility] Trauma Office/Clinic Noteon 03-26-2024 Trauma Office/Clinic Note Trauma Office/Clinic Note Chief Complaint Wound check HPI Staff Christian is a 48 y.o. male here for wound check Patient admitted 03/15/24 to EGS after multiple ER visits for abdominal pain. Known ventral hernia HOSPITAL COURSE: 03/14/2024: Admitted for observation, pain improved 03/15/2024: Taken to OR for ex-lap, lysis of adhesions, resection of hernia sac, primary repair of ventral hernia, bilateral TAP blocks 03/16/2024: +flatus, +nausea but no vomiting. on CARDIOLOGY RN for pain 03/17/2024: tolerating diet, +BM 03/18/2024: melanotic stool and downtrending H/H 03/19/2024: H/H stable, pt set up for outpatient colonoscopy/EGD with Dr. Collins. Pt advancing as expected, tolerating regular diet, no N/V. Pain well controlled, ambulating unassisted, voiding spontaneously. Pt is medically cleared for DC at this time. Patient denies excessive bleeding/pain/discharge/feve r/chills. History of Present Illness 40-year-old male status post primary ventral hernia repair, here for wound check Patient states that the Prevena wound VAC battery a couple of days ago but he was not try to take it off so he left it on. Patient states he has been having the cc or less of drainage from his GHULAM drain for the last few days. has been keeping track and she did bring record with her. Drain has not been obtained since yesterday and currently there is only roughly 10 cc of serous drainage in the bulb. Patient describes mild abdominal cramping and a burning sensation near the incision but otherwise no significant abdominal pain. Having regular bowel movements, no fevers or chills, no nausea or vomiting. Patient is scheduled to have an EGD and colonoscopy next week with Dr. Collins. Review of Systems All organ systems are reviewed. Pertinent positive and negative findings as mentioned in the HPI. Physical Exam Vitals & Measurements T: 36.6 ?C(Oral) HR: 118(Peripheral) BP: 138/70 HT: 73 in HT: 185 cm WT: 182 kg WT: 400.4 lb BMI: 53.18 GENERAL: alert, pleasant, conversational. HEENT: normocephalic. oral mucosa moist. CARDIOVASCULAR: RRR. PULMONARY: CTAB. breathing comfortably on room air ABDOMINAL: Abdomen is soft, nontender. Midline incision clean, dry, intact with henrique in place underlying the Prevena wound VAC which was removed today. 3 proximal henrique removed and there was a mild wound dehiscence with a small amount of underlying hematoma. The wound was probed using cotton-tipped swab does not appear to track at this time. Remainder of henrique to remain in place until next week. GHULAM drain with 10 cc blood-tinged serosanguineous output, removed at bedside, patient tolerated well. EXTREMITIES: moves all extremities with equal strength NEUROLOGICAL: AxO x3 Assessment/Plan 40-year-old male status post primary ventral hernia repair, here for wound check -Patient advancing as expected. Wound VAC removed today at bedside, underlying incision clean and dry. A few henrique removed and there was mild dehiscence, remainder of henrique remain in place. Will perform wound check next week. Patient having EGD and colonoscopy next Saturday, will plan to remove henrique at that time. -Patient educated on weight lifting restrictions -GHULAM drain removed at bedside today, patient tolerated well. Patient has been having 30 cc or less of output but for the last couple days. -Visually upon arrival to the office patient was hypertensive and tachycardic, patient expresses he has a fear of doctors offices and is very nervous and this response is normal for him. States that his blood pressure and heart rate are always high when he is in the doctor's office. After resting the office vital signs did improve on my exam Leandra Wallace PA-C Trauma Surgery/Surgical Critical Care/Emergency General Surgery Follow-up No qualifying data available Problem List/Past Medical History Ongoing Abdominal hernia Anxiety Encounter for screening colonoscopy Left groin mass Melena Morbid obesity Recurrent scrotal infection Scrotal abscess Smoker Type II diabetes mellitus Historical No qualifying data Procedure/Surgical History Drainage of scrotal abscess (03/21/2016), Tonsillectomy. Medications acetaminophen 325 mg Tab, 975 mg= 3 tab(s), Oral, q6hr atorvastatin 20 mg Tab, Daily busPIRone 5 mg Tab, Oral, BID docusate sodium 100 mg Cap, 100 mg= 1 cap(s), Oral, BID Farxiga 5 mg oral tablet, 5 mg= 1 tab(s), Oral, Daily glimepiride 4 mg Tab, Oral, Daily losartan 25 mg Tab, Oral, Daily metformin 1000 mg oral tablet, extended release, Oral, Daily oxybutynin 5 mg ER Tab, Daily venlafaxine 75 mg Cap-ER, Oral, Daily Allergies No Known Medication Allergies Social History Alcohol Substance Abuse - High Risk, 03/04/2024 Current, Marijuana, Daily, 08/14/2023 Marijuana, 08/13/2023 Current, 08/13/2023 Marijuana, 08/13/2023 Tobacco Former smoker, quit more than 30 days ago Tobacco Use:., 03/25/2024 Former smoker, quit more than 30 days ago Tobacco Use:. Cigar (more content not included)... Normal [facility] Comment on above: Result Comment: Elec tronically Signed By: Madison BEAN, Leandra Del Rosario\.br\Date and Time Signed: 03/25/24 10:23 EDT\.br\Electronically Co-Signed By: Amparo MARTINEZ, Alesha Wray\.br\Date and Time Co-Signed: 03/26/24 14:28 EDT BMPon 03-19-2024 Anion gap [Moles/Vol] 8 mmol/L Normal 6-16 [facility] Comment on above: Performed By: #### 2 [id number] #### [facility] [address] [place] [address] Calcium [Mass/Vol] 7.7 mg/dL Low 8.9-11.1 [facility] Comment on above: Performed By: #### 2 [id number] #### [facility] [address] [place] [address] Chloride [Moles/Vol] 105 mmol/L Normal 101-111 [facility] Comment on above: Performed By: #### 2 [id number] #### [facility] [address] [place] [address] CO2 [Moles/Vol] 28 mmol/L Normal 21-31 [facility] Comment on above: Performed By: #### 2 [id number] #### [facility] [address] [place] [address] Creatinine [Mass/Vol] 0.5 mg/dL Normal 0.5-1.3 [facility] Comment on above: Performed By: #### 2 [id number] #### [facility] [address] [place] [address] Glucose [Mass/Vol] 197 mg/dL Normal 55-199 [facility] Comment on above: Performed By: #### 2 [id number] #### [facility] [address] [place] [address] Potassium [Moles/Vol] 3.3 mmol/L Low 3.5-5.3 [facility] Comment on above: Performed By: #### 2 [id number] #### [facility] [address] [place] [address] Sodium [Moles/Vol] 138 mmol/L Normal 135-145 [facility] Comment on above: Performed By: #### 2 [id number] #### [facility] [address] [place] [address] Urea nitrogen [Mass/Vol] 9 mg/dL Normal 5-21 [facility] Comment on above: Performed By: #### 2 [id number] #### [facility] [address] [place] [address] Urea nitrogen/Creatinine [Mass ratio] 18 No Units Normal 10-20 [facility] Comment on above: Performed By: #### 2 [id number] #### [facility] [address] [place] [address] CBC w/ Auto Diffon 4 Basophils/100 WBC (Bld) 0.4 % Normal 0.0-2.0 [facility] Comment on above: Performed By: #### 2 [id number] #### [facility] [address] [place] [address] Basophils/Leukocytes Auto (Bld) [Pure # fraction] 0.0 E9/L Normal 0.0-0.2 [facility] Comment on above: Performed By: #### 2 [id number] #### [facility] [address] [place] [address] Eosinophils (Bld) [#/Vol] 0.1 E9/L Normal 0.0-0.5 [facility] Comment on above: Performed By: #### 2 [id number] #### [facility] [address] [place] [address] Eosinophils/100 WBC (Bld) 1.1 % Normal 0.0-8.0 [facility] Comment on above: Performed By: #### 2 [id number] #### [facility] [address] [place] [address] Erythrocyte distribution width (RBC) [Ratio] 15.8 % High 10.9-14.2 [facility] Comment on above: Performed By: #### 2 [id number] #### [facility] [address] [place] [address] Hematocrit (Bld) [Volume fraction] 28.8 % Low 37.7-49.0 [facility] Comment on above: Performed By: #### 2 [id number] #### [facility] [address] [place] [address] Hemoglobin (Bld) [Mass/Vol] 9.3 g/dL Low 13.5-17.5 [facility] Comment on above: Performed By: #### 2 [id number] #### [facility] [address] [place] [address] Lymphocytes (Bld) [#/Vol] 1.6 E9/L Normal 1.0-4.0 [facility] Comment on above: Performed By: #### 2 [id number] #### [facility] [address] [place] [address] Lymphocytes/100 WBC (Bld) 13.9 % Low 14.0-50.0 [facility] Comment on above: Performed By: #### 2 [id number] #### [facility] [address] [place] [address] MCH (RBC) [Entitic mass] 27.6 pg Normal 27.0-34.0 [facility] Comment on above: Performed By: #### 2 [id number] #### [facility] [address] [place] [address] MCHC (RBC) [Mass/Vol] 32.2 g/dL Normal 31.4-36.0 [facility] Comment on above: Performed By: #### 2 [id number] #### [facility] [address] [place] [address] MCV (RBC) [Entitic vol] 85.7 fL Normal 80.0-100.0 [facility] Comment on above: Performed By: #### 2 [id number] #### [facility] [address] [place] [address] Monocytes (Bld) [#/Vol] 1.0 E9/L Normal 0.2-1.0 [facility] Comment on above: Performed By: #### 2 [id number] #### [facility] [address] [place] [address] Neutrophils (Bld) [#/Vol] 8.9 E9/L High 2.0-7.5 [facility] Comment on above: Performed By: #### 2 [id number] #### [facility] [address] [place] [address] Neutrophils/100 WBC (Bld) 76.1 % High 36.0-75.0 [facility] Comment on above: Performed By: #### 2 [id number] #### [facility] [address] [place] [address] Platelet mean volume (Bld) [Entitic vol] 7.3 fL Normal 6.4-10.8 [facility] Comment on above: Performed By: #### 2 [id number] #### [facility] [address] [place] [address] Platelets (Bld) [#/Vol] 357.0 E9/L Normal 150.0-500. 0 [facility] Comment on above: Performed By: #### 2 647481 #### [facility] [address] [place] [address] RBC (Bld) [#/Vol] 3.4 E12/L Low 4.3-5.9 [facility] Comment on above: Performed By: #### 2 [id number] #### [facility] [address] [place] [address] WBC corrected for nucl RBC Auto (Bld) [#/Vol] 11.7 E9/L High 4.0-11.0 [facility] Comment on above: Performed By: #### 2 964425 #### [facility] [address] [place] [address] Basophils/100 WBC (Bld) 0.5 % Normal 0.0-2.0 [facility] Comment on above: Performed By: #### 2 [id number] #### [facility] [address] [place] [address] Basophils/Leukocytes Auto (Bld) [Pure # fraction] 0.1 E9/L Normal 0.0-0.2 [facility] Comment on above: Performed By: #### 2 976180 #### [facility] [address] [place] [address] Eosinophils (Bld) [#/Vol] 0.2 E9/L Normal 0.0-0.5 [facility] Comment on above: Performed By: #### 2 [id number] #### [facility] [address] [place] [address] Eosinophils/100 WBC (Bld) 1.3 % Normal 0.0-8.0 [facility] Comment on above: Performed By: #### 2 194061 #### [facility] [address] [place] [address] Erythrocyte distribution width (RBC) [Ratio] 15.9 % High 10.9-14.2 [facility] Comment on above: Performed By: #### 2 513203 #### [facility] [address] [place] [address] Hematocrit (Bld) [Volume fraction] 28.2 % Low 37.7-49.0 [facility] Comment on above: Performed By: #### 2 695347 #### [facility] [address] [place] [address] Hemoglobin (Bld) [Mass/Vol] 9.3 g/dL Low 13.5-17.5 [facility] Comment on above: Performed By: #### 2 510666 #### [facility] [address] [place] [address] Lymphocytes (Bld) [#/Vol] 1.8 E9/L Normal 1.0-4.0 [facility] Comment on above: Performed By: #### 2 113102 #### [facility] [address] [place] [address] Lymphocytes/100 WBC (Bld) 15.8 % Normal 14.0-50.0 [facility] Comment on above: Performed By: #### 2 [id number] #### [facility] [address] [place] [address] MCH (RBC) [Entitic mass] 27.9 pg Normal 27.0-34.0 [facility] Comment on above: Performed By: #### 2 233508 #### [facility] [address] [place] [address] MCHC (RBC) [Mass/Vol] 32.9 g/dL Normal 31.4-36.0 [facility] Comment on above: Performed By: #### 2 771681 #### [facility] [address] [place] [address] MCV (RBC) [Entitic vol] 84.9 fL Normal 80.0-100.0 [facility] Comment on above: Performed By: #### 2 [id number] #### [facility] [address] [place] [address] Monocytes (Bld) [#/Vol] 1.0 E9/L Normal 0.2-1.0 [facility] Comment on above: Performed By: #### 2 [id number] #### [facility] [address] [place] [address] Neutrophils (Bld) [#/Vol] 8.6 E9/L High 2.0-7.5 [facility] Comment on above: Performed By: #### 2 385556 #### [facility] [address] [place] [address] Neutrophils/100 WBC (Bld) 74.1 % Normal 36.0-75.0 [facility] Comment on above: Performed By: #### 2 418908 #### [facility] [address] [place] [address] Platelet 384.0 E9/L Normal 150.0-500. 0 [facility] Comment on above: Performed By: #### 2 [id number] #### [facility] [address] [place] [address] Platelet mean volume (Bld) [Entitic vol] 7.3 fL Normal 6.4-10.8 [facility] Comment on above: Performed By: #### 2 629834 #### [facility] [address] [place] [address] RBC (Bld) [#/Vol] 3.3 E12/L Low 4.3-5.9 [facility] Comment on above: Performed By: #### 2 694440 #### [facility] [address] [place] [address] WBC corrected for nucl RBC Auto (Bld) [#/Vol] 11.6 E9/L High 4.0-11.0 [facility] Comment on above: Performed By: #### 2 764251 #### [facility] [address] [place] [address] Basophils/100 WBC (Bld) 0.5 % Normal 0.0-2.0 [facility] Comment on above: Performed By: #### 2 583053 #### [facility] [address] [place] [address] Basophils/Leukocytes Auto (Bld) [Pure # fraction] 0.0 E9/L Normal 0.0-0.2 [facility] Comment on above: Performed By: #### 2 [id number] #### [facility] [address] [place] [address] Eosinophils (Bld) [#/Vol] 0.2 E9/L Normal 0.0-0.5 [facility] Comment on above: Performed By: #### 2 808511 #### [facility] [address] [place] [address] Eosinophils/100 WBC (Bld) 2.2 % Normal 0.0-8.0 [facility] Comment on above: Performed By: #### 2 391946 #### [facility] [address] [place] [address] Erythrocyte distribution width (RBC) [Ratio] 16.2 % High 10.9-14.2 [facility] Comment on above: Performed By: #### 2 541500 #### [facility] [address] [place] [address] Hematocrit (Bld) [Volume fraction] 26.3 % Low 37.7-49.0 [facility] Comment on above: Performed By: #### 2 610327 #### [facility] [address] [place] [address] Hemoglobin (Bld) [Mass/Vol] 8.9 g/dL Low 13.5-17.5 [facility] Comment on above: Performed By: #### 2 622904 #### [facility] [address] [place] [address] Lymphocytes (Bld) [#/Vol] 2.3 E9/L Normal 1.0-4.0 [facility] Comment on above: Performed By: #### 2 867394 #### [facility] [address] [place] [address] Lymphocytes/100 WBC (Bld) 21.8 % Normal 14.0-50.0 [facility] Comment on above: Performed By: #### 2 405804 #### [facility] [address] [place] [address] MCH (RBC) [Entitic mass] 28.6 pg Normal 27.0-34.0 [facility] Comment on above: Performed By: #### 2 773882 #### [facility] [address] [place] [address] MCHC (RBC) [Mass/Vol] 34.0 g/dL Normal 31.4-36.0 [facility] Comment on above: Performed By: #### 2 492521 #### [facility] [address] [place] [address] MCV (RBC) [Entitic vol] 84.3 fL Normal 80.0-100.0 [facility] Comment on above: Performed By: #### 2 498121 #### [facility] [address] [place] [address] Monocytes (Bld) [#/Vol] 0.9 E9/L Normal 0.2-1.0 [facility] Comment on above: Performed By: #### 2 225046 #### [facility] [address] [place] [address] Neutrophils (Bld) [#/Vol] 7.0 E9/L Normal 2.0-7.5 [facility] Comment on above: Performed By: #### 2 014140 #### [facility] [address] [place] [address] Neutrophils/100 WBC (Bld) 66.9 % Normal 36.0-75.0 [facility] Comment on above: Performed By: #### 2 017101 #### [facility] [address] [place] [address] Platelet 349.0 E9/L Normal 150.0-500. 0 [facility] Comment on above: Performed By: #### 2 [id number] #### [facility] [address] [place] [address] Platelet mean volume (Bld) [Entitic vol] 7.2 fL Normal 6.4-10.8 [facility] Comment on above: Performed By: #### 2 055271 #### [facility] [address] [place] [address] RBC (Bld) [#/Vol] 3.1 E12/L Low 4.3-5.9 [facility] Comment on above: Performed By: #### 2 134635 #### [facility] [address] [place] [address] WBC corrected for nucl RBC Auto (Bld) [#/Vol] 10.4 E9/L Normal 4.0-11.0 [facility] Comment on above: Performed By: #### 2 637354 #### [facility] [address] [place] [address] CHEMISTRYOrdered By: Lab ROP User on 03-19-2024 Glucose [Mass/Vol] 253 mg/dL High 55 - 99 mg/dL [facility] [place] Comment on above: Result Comment: Isabelle MARES POC Device SN [id number] 1 Invalid Interpretation Code [facility] POC Subsection POC User ID [id number] 1 Invalid Interpretation Code [facility] POC Subsection POC Username JAMISON COTO Invalid Interpretation Code [facility] POC Subsection Glucose [Mass/Vol] 189 mg/dL High 55 - 99 mg/dL [facility] POC Subsection Comment on above: Result Comment: Isabelle MARES POC Device SN [id number] 1 Invalid Interpretation Code [facility] POC Subsection POC User ID [id number] 1 Invalid Interpretation Code [facility] POC Subsection POC Username JAMISON COTO Invalid Interpretation Code [facility] POC Subsection Glucose [Mass/Vol] 202 mg/dL High 55 - 99 mg/dL [facility] [place] Subsection Comment on above: Result Comment: Isabelle MARES POC Device SN [id number] 1 Invalid Interpretation Code [facility] [place] Sub[place] POC User ID [id number] 1 Invalid Interpretation Code [facility] Subsection POC Username JAMISON COTO Invalid Interpretation Code [facility] [place] Subsection CHEMISTRYOrdered By: SYSTEM SYSTEM on 03-19-2024 Anion gap [Moles/Vol] 8 mmol/L Normal 6 - 16 mEq/L [facility] Calcium [Mass/Vol] 7.7 mg/dL Low 8.9 - 11. 1 mg/dL [facility] Chloride [Moles/Vol] 105 mmol/L Normal 101 - 1 11 mmol/L [facility] CO2 [Moles/Vol] 28 mmol/L Normal 21 - 31 mmol/L [facility] Creatinine [Mass/Vol] 0.5 mg/dL Normal 0.5 - 1.3 mg/dL [facility] eGFR 125 mL/min/1.73 m2 Normal >=59mL/mi n /1.73 m2 [facility] Glucose [Mass/Vol] 197 mg/dL Normal 55 - 199 mg/dL [facility] Magnesium [Mass/Vol] 1.9 mg/dL Normal 1.3 - 2 .4 mg/dL [facility] Phosphate [Mass/Vol] 2.2 mg/dL Normal 1.9 - 4 .6 mg/dL [facility] Potassium [Moles/Vol] 3.3 mmol/L Low 3.5 - 5.3 mmol/L [facility] Sodium [Moles/Vol] 138 mmol/L Normal 135 - 145 mmol/L [facility] Urea nitrogen [Mass/Vol] 9 mg/dL Normal 5 - 21 mg/dL [facility] Urea nitrogen/Creatinine [Mass ratio] 18 mg/mg Normal 10 - 20 [facility] Capillary Glucose POCon 03-09 Glucose [Mass/Vol] 253 mg/dL High 55-99 [facility] Comment on above: Result Comment: Isabelle MARES Performed By: #### 2 [id number] ####[facility] [id number] [place] [address] Glucose [Mass/Vol] 189 mg/dL High 55-99 [facility] Comment on above: Result Comment: Isabelle MARES Performed By: #### 2 [id number] #### [facility] [address] [place] [address] Glucose [Mass/Vol] 202 mg/dL High 55-99 [facility] Comment on above: Result Comment: Isabelle MARES Performed By: #### 2 [id number] #### [facility] [address] [place] [address] HEMATOLOGYOrdered By: SYSTEM SYSTEM on 03-19-2024 Basophils/100 WBC (Bld) 0.4 % Normal 0.0 - 2.0 % [facility] Basophils/Leukocytes Auto (Bld) [Pure # fraction] 0.0 E9/L Normal 0.0 - 0.2 E9/L [facility] Eosinophils (Bld) [#/Vol] 0.1 E9/L Normal 0.0 - 0.5 E9/L [facility] Eosinophils/100 WBC (Bld) 1.1 % Normal 0.0 - 8.0 % [facility] Erythrocyte distribution width (RBC) [Ratio] 15.8 % High 10.9 - 14.2 % [facility] Hematocrit (Bld) [Volume fraction] 28.8 % Low 37.7 - 49.0 % [facility] Hemoglobin (Bld) [Mass/Vol] 9.3 g/dL Low 13.5 - 17.5 gm/dL [facility] Lymphocytes (Bld) [#/Vol] 1.6 E9/L Normal 1.0 - 4.0 E9/L [facility] Lymphocytes/100 WBC (Bld) 13.9 % Low 14.0 - 50.0 % [facility] MCH (RBC) [Entitic mass] 27.6 pg Normal 27.0 - 34.0 pg [facility] MCHC (RBC) [Mass/Vol] 32.2 g/dL Normal 31.4 - 36.0 gm/dL [facility] MCV (RBC) [Entitic vol] 85.7 fL Normal 80.0 - 100.0 fL [facility] Monocytes (Bld) [#/Vol] 1.0 E9/L Normal 0.2 - 1.0 E9/L [facility] Monocytes/100 WBC (Bld) 8.5 % Normal 4.0 - 14.0 % [facility] Neutrophils (Bld) [#/Vol] 8.9 E9/L High 2.0 - 7.5 E9/L [facility] Neutrophils/100 WBC (Bld) 76.1 % High 36.0 - 75.0 % [facility] Platelet mean volume (Bld) [Entitic vol] 7.3 fL Normal 6.4 - 10.8 fL [facility] Platelets (Bld) [#/Vol] 357.0 E9/L Normal 150.0 - 500.0 E9/L [facility] RBC (Bld) [#/Vol] 3.4 E12/L Low 4.3 - 5.9 E12/L [facility] WBC corrected for nucl RBC Auto (Bld) [#/Vol] 11.7 E9/L High 4.0 - 11.0 E9/L [facility] Basophils/100 WBC (Bld) 0.5 % Normal 0.0 - 2.0 % [facility] Basophils/Leukocytes Auto (Bld) [Pure # fraction] 0.1 E9/L Normal 0.0 - 0.2 E9/L [facility] Eosinophils (Bld) [#/Vol] 0.2 E9/L Normal 0.0 - 0.5 E9/L [facility] Eosinophils/100 WBC (Bld) 1.3 % Normal 0.0 - 8.0 % [facility] Erythrocyte distribution width (RBC) [Ratio] 15.9 % High 10.9 - 14.2 % [facility] Hematocrit (Bld) [Volume fraction] 28.2 % Low 37.7 - 49.0 % [facility] Hemoglobin (Bld) [Mass/Vol] 9.3 g/dL Low 13.5 - 17.5 gm/dL [facility] Lymphocytes (Bld) [#/Vol] 1.8 E9/L Normal 1.0 - 4.0 E9/L [facility] Lymphocytes/100 WBC (Bld) 15.8 % Normal 14.0 - 50.0 % [facility] MCH (RBC) [Entitic mass] 27.9 pg Normal 27.0 - 34.0 pg [facility] MCHC (RBC) [Mass/Vol] 32.9 g/dL Normal 31.4 - 36.0 gm/dL [facility] MCV (RBC) [Entitic vol] 84.9 fL Normal 80.0 - 100.0 fL [facility] Monocytes (Bld) [#/Vol] 1.0 E9/L Normal 0.2 - 1.0 E9/L [facility] Monocytes/100 WBC (Bld) 8.3 % Normal 4.0 - 14.0 % [facility] Neutrophils (Bld) [#/Vol] 8.6 E9/L High 2.0 - 7.5 E9/L [facility] Neutrophils/100 WBC (Bld) 74.1 % Normal 36.0 - 75.0 % [facility] Platelet 384.0 E9/L Normal 150.0 - 500.0 E9/L [facility] Platelet mean volume (Bld) [Entitic vol] 7.3 fL Normal 6.4 - 10.8 fL [facility] RBC (Bld) [#/Vol] 3.3 E12/L Low 4.3 - 5.9 E12/L [facility] WBC corrected for nucl RBC Auto (Bld) [#/Vol] 11.6 E9/L High 4.0 - 11.0 E9/L [facility] Basophils/100 WBC (Bld) 0.5 % Normal 0.0 - 2.0 % [facility] Basophils/Leukocytes Auto (Bld) [Pure # fraction] 0.0 E9/L Normal 0.0 - 0.2 E9/L [facility] Eosinophils (Bld) [#/Vol] 0.2 E9/L Normal 0.0 - 0.5 E9/L [facility] Eosinophils/100 WBC (Bld) 2.2 % Normal 0.0 - 8.0 % [facility] Erythrocyte distribution width (RBC) [Ratio] 16.2 % High 10.9 - 14.2 % [facility] Hematocrit (Bld) [Volume fraction] 26.3 % Low 37.7 - 49.0 % [facility] Hemoglobin (Bld) [Mass/Vol] 8.9 g/dL Low 13.5 - 17.5 gm/dL [facility] Lymphocytes (Bld) [#/Vol] 2.3 E9/L Normal 1.0 - 4.0 E9/L [facility] Lymphocytes/100 WBC (Bld) 21.8 % Normal 14.0 - 50.0 % [facility] MCH (RBC) [Entitic mass] 28.6 pg Normal 27.0 - 34.0 pg [facility] MCHC (RBC) [Mass/Vol] 34.0 g/dL Normal 31.4 - 36.0 gm/dL [facility] MCV (RBC) [Entitic vol] 84.3 fL Normal 80.0 - 100.0 fL [facility] Monocytes (Bld) [#/Vol] 0.9 E9/L Normal 0.2 - 1.0 E9/L [facility] Monocytes/100 WBC (Bld) 8.6 % Normal 4.0 - 14.0 % [facility] Neutrophils (Bld) [#/Vol] 7.0 E9/L Normal 2.0 - 7.5 E9/L [facility] Neutrophils/100 WBC (Bld) 66.9 % Normal 36.0 - 75.0 % [facility] Platelet 349.0 E9/L Normal 150.0 - 500.0 E9/L [facility] Platelet mean volume (Bld) [Entitic vol] 7.2 fL Normal 6.4 - 10.8 fL [facility] RBC (Bld) [#/Vol] 3.1 E12/L Low 4.3 - 5.9 E12/L [facility] WBC corrected for nucl RBC Auto (Bld) [#/Vol] 10.4 E9/L Normal 4.0 - 11.0 E9/L [facility] Inpatient Clinical Summaryon 03-19-2024 Inpatient Clinical Summary Inpatient Clinical Summary [place] [id number] Clinical Summary Person Information: Name: CHRISTIAN SHELBY Age: 48 Years : 1975 Sex: Male PCP: JOAN OROSCO CNP Marital Status: Phone: [phone] Race: White Ethnicity: Non- or Language: Serbian Visit Id: Visit Reason: Hernia; Abdominal pain; HERNIA IN LOWER STOMACH AREA Speciality: Acuity: Enc Type: Inpatient Med Service: Medical Arrival: 03/14/2024 17:37:38 Discharge: Dispo Type: Admitted as IP to this Hosp Address: [address] [place] [id number] Provider Notes: Diagnosis: 1:Ventral hernia Problems Active Scrotal abscess Left groin mass Abdominal hernia Recurrent scrotal infection Anxiety Smoker Morbid obesity Type II diabetes mellitus Smoking Status: Former Smoker Functional Status: Sensory Deficits: History of Falls: Mobility Assistance Prior to Admission: ADLs: Minimal assistance Current Level of Assistance for Self-Care/Mobility: Cognitive Status: Oriented x 3 Allergies No Known Medication Allergies Measurements: Height: 185.42 cm Weight: 180.0 kg Blood Pressure: 168 mmHg / 83 mmHg BMI: 52.88 kg/m2 Procedures No Procedures Documented Immunizations No Immunizations Documented This Visit Final Med List: acetaminophen (acetaminophen 325 mg Tab) 3 Tablets By Mouth every 6 hours. atorvastatin (atorvastatin 20 mg Tab) every day. busPIRone (busPIRone 5 mg Tab) By Mouth 2 times a day. docusate (docusate sodium 100 mg Cap) 1 Capsules By Mouth 2 times a day for 7 Days. Refills: 0. glimepiride (glimepiride 4 mg Tab) By Mouth every day. losartan (losartan 25 mg Tab) By Mouth every day. metformin (metformin 1000 mg oral tablet, extended release) By Mouth every day. minocycline (minocycline 100 mg Cap) By Mouth every 12 hours. oxybutynin (oxybutynin 5 mg ER Tab) every day. oxycodone (oxyCODONE 5 mg Tab) 1 Tablets By Mouth every 6 hours as needed Pain 8-10 for 3 Days. Refills: 0. tirzepatide (Mounjaro 5 mg/0.5 mL subcutaneous solution) venlafaxine (venlafaxine 75 mg Cap-ER) By Mouth every day. Care Team Members: Attending Physician: Jason West MD Consulting Physician: Silvio Sharp DO Referring Physician: Follow up: With: Address: When: trauma clinic [address] [place] [address] 3, second floor, [address] [place] [address] 03/25/2024 9:30 AM Comments: Call to schedule/confirm followup appointment for wound check and GHULAM drain removal Type Location Start Finish State Trauma Initial Follow Up ([facility] 03/25/2024 9:30 AM 03/25/2024 9:45 AM Confirmed Patient Education Information: Reddy - [facility]Pratt Drainage Tube Care (CUSTOM); Open Hernia Repair, Adult, Care After, [id number]; Diet - Basic Carbohydrate Counting (Custom) [facility] Inpatient Patient Summaryon 03-19-2024 Inpatient Patient Summary Inpatient Patient Summary CHRISTIAN SHELBY :1975 Visit Date:03/14/2024 Inpatient Discharge Instructions Your Care Team Admitting Physician - Jason West MD Consulting Physician - Silvio Sharp DO Reason for Your Visit My hernia popped up and I was really in pain like I nfeel Im gonna Your Diagnosis Ventral hernia Abdominal pain Hernia Tests Performed CT Abdomen/Pelvis w/ Contrast XR Abdomen 1 View This Is Your Medications List acetaminophen (acetaminophen 325 mg Tab) atorvastatin (atorvastatin 20 mg Tab) busPIRone (busPIRone 5 mg Tab) docusate (docusate sodium 100 mg Cap) glimepiride (glimepiride 4 mg Tab) losartan (losartan 25 mg Tab) metformin (metformin 1000 mg oral tablet, extended release) minocycline (minocycline 100 mg Cap) oxybutynin (oxybutynin 5 mg ER Tab) oxycodone (oxyCODONE 5 mg Tab) tirzepatide (Mounjaro 5 mg/0.5 mL subcutaneous solution) venlafaxine (venlafaxine 75 mg Cap-ER) Procedure History Drainage of scrotal abscess (03/21/2016), Tonsillectomy. Discharge Vitals Temperature (Oral) 36.4 ?C Heart Rate (Monitored) 83 Respiratory Rate 18 Blood Pressure 157/84 Blood Pressure 200/77(Standing) Blood Pressure 189/80(Supine) What to do next Instructions From Your Doctor Event Name Event Result Pending Diagnostic Test Results None Discharge Instructions Tylenol and Motrin for mild to moderate pain, oxycodone for severe pain. No lifting heavier than 15 pounds for 4 to 6 weeks. You may shower normally. Previously Scheduled Follow-Up Appointments Saturday 9:30 AM EDT Where: [facility] New Follow Up Appointments after Discharge Follow Up with trauma clinic When: 03/25/2024 09:30 AM EDT Comments: Call to schedule/confirm followup appointment for wound check and GHULAM drain removal Where: [address] [facility] [address], second floor, [address] [place] [address]- [phone] Someone Will Contact You Regarding These Appointments Follow up with Dr. Collins for outpatient EGD and colonoscopy. Medications What How Much When Why Instructions Next Dose New acetaminophen (acetaminophen 325 mg Tab) 3 Tablets By Mouth Every 6 hours Ventral hernia 03/19 11 PM New docusate (docusate sodium 100 mg Cap) 1 Capsules By Mouth 2 times a day Ventral hernia Duration: 7 Days Pickup at [facility] #[id number] 03/19 9 PM New oxycodone (oxyCODONE 5 mg Tab) 1 Tablets By Mouth Every 6 hours as needed for Pain 8-10 Ventral hernia Duration: 3 Days Pickup at [facility] #[id number] NEEDED FOR PAIN LEVEL 8-10 Unchanged atorvastatin (atorvastatin 20 mg Tab) Every day 03/19 9 PM Unchanged busPIRone (busPIRone 5 mg Tab) By Mouth 2 times a day 03/19 9 PM Unchanged glimepiride (glimepiride 4 mg Tab) By Mouth Every day PREVIOUSLY TAKEN AT HOME Unchanged losartan (losartan 25 mg Tab) By Mouth Every day PREVIOUSLY TAKEN AT HOME Unchanged metformin (metformin 1000 mg oral tablet, extended release) By Mouth Every day PREVIOUSLY TAKEN AT HOME Unchanged minocycline (minocycline 100 mg Cap) By Mouth Every 12 hours PREVIOUSLY TAKEN AT HOME Unchanged oxybutynin (oxybutynin 5 mg ER Tab) Every day 03/20 9 AM Unchanged tirzepatide (Mounjaro 5 mg/ 0.5 mL subcutaneous solution) PREVIOUSLY TAKEN AT HOME Unchanged venlafaxine (venlafaxine 75 mg Cap-ER) By Mouth Every day 03/20 9 AM Pharmacy Information [id number]: [address], [place] [id number] [phone] Test Results CBC BMP WBC: 11.7 E9/L High (03/19/24 13:30:00) Glucose Lvl: 197 mg/dL (03/19/24 03:18:00) RBC: 3.4 E12/L Low (03/19/24 13:30:00) BUN: 9 mg/dL (03/19/24 03:18:00) HGB: 9.3 gm/dL Low (03/19/24 13:30:00) Creatinine: 0.5 mg/dL (03/19/24 03:18:00) Hct: 28.8 % Low (03/19/24:30:00) BUN/Creat Ratio: 18 (03/19/24 03:18:00) MCV: 85.7 fL (03/19/24:30:00) Sodium Lvl: 138 mmol/L (03/19/24 03:18:00) MCH: 27.6 pg (03/19/24:30:00) Potassium Lvl: 3.3 mmol/L Low (03/19/24 03:18:00) MCHC: 32.2 gm/dL (03/19/24:30:00) Chloride: 105 mmol/L (03/19/24 03:18:00) RDW: 15.8 % High (03/19/24:30:00) CO2: 28 mmol/L (03/19/24 03:18:00) Platelet: 357 E9/L (03/19/24:30:00) AGAP: 8 mEq/L (03/19/24 03:18:00) MPV: 7.3 fL (03/19/24:30:00) Calcium Lvl: 7.7 mg/dL Low (03/19/24 03:18:00) Allergies No Known Medication Allergies Problems Ongoing - Any problem that you are currently receiving treatment for. Abdominal hernia Anxiety Left groin mass Morbid obesity Recurrent scrotal infection Scrotal abscess Smoker Type II diabetes mellitus Education Materials [place], [place] Neno Reddy MD, FACS DISCHARGE INSTRUCTIONS CARING FOR YOUR THOMAS-MICHAELS DRAINAGE TUBE You have been discharged with a Thomas-Michaels drainage tube. This tube will help healing and reduce the risk of infection by removing fluid through your incision. It is attached to a drain or c (more content not included)... Normal [facility] Inpatient Patient Summary Inpatient Patient Summary [address] [address] Patient Discharge Instructions PERSON INFORMATION Name: CHRISTIAN SHELBY Date of : 1975 Current Date: 03/19/2024 15:04:03 PHYSICIANS Admitting Physician: Jason West MD Primary Care Physician: JOAN OROSCO CNP PCP Phone Number: [phone] Comment: Discharge Diagnosis: 1:Ventral hernia Condition at Discharge: Improved CHRISTIAN SHELBY has been given the following list of follow-up instructions, prescriptions, and patient education materials: PATIENT FOLLOW-UP INFORMATION Diet: Discharge Activity: Discharge Restrictions: Wound Care Instructions: Remove Your Dressing In Days Call Your Doctor For: IF UNABLE TO CONTACT YOUR PHYSICIAN AND YOU FEEL IT IS AN EMERGENCY, GO TO THE NEAREST EMERGENCY ROOM OR CALL 911 Home Treatment: Devices/Equipment: None Special Services: Additional Instructions: Tylenol and Motrin for mild to moderate pain, oxycodone for severe pain. No lifting heavier than 15 pounds for 4 to 6 weeks. You may shower normally. Primary Care Physician to provide the following pending test results: None Follow up: With: Address: When: trauma clinic [address] [place] [address], second floor, [address] [place], [place] [id number] 03/25/2024 9:30 AM Comments: Call to schedule/confirm followup appointment for wound check and GHULAM drain removal In the event that this physician does not participate in your insurance network, please consult with your insurance company to find a nearby participating provider. Type Location Start [facility] Trauma Initial Follow Up (FT) FT.Trauma Clinic 03/25/2024 9:30 AM 03/25/2024 9:45 AM Confirmed Comment: IHERON DUANE G, have received the attached patient education materials/instructions and have verbalized understanding: Patient Signature Date Clinican/Nurse Signature Date HERE ARE THE MEDICATION CHANGES THAT OCCURRED DURING YOUR HOSPITAL STAY New Medications [id number], [address] [place] [place], [place] [id number], [phone] docusate (docusate sodium 100 mg Cap) 1 Capsules By Mouth 2 times a day for 7 Days. Refills: 0. Last Dose: Nex t Dose: oxycodone (oxyCODONE 5 mg Tab) 1 Tablets By Mouth every 6 hours as needed Pain 8-10 for 3 Days. Refills: 0. Last Dose: Nex t Dose: Other Medications acetaminophen (acetaminophen 325 mg Tab) 3 Tablets By Mouth every 6 hours. Last Dose: Nex t Dose: Medications to Continue with No Changes Other Medications atorvastatin (atorvastatin 20 mg Tab) every day. Last Dose: Nex t Dose: busPIRone (busPIRone 5 mg Tab) By Mouth 2 times a day. Last Dose: Nex t Dose: glimepiride (glimepiride 4 mg Tab) By Mouth every day. Last Dose: Nex t Dose: losartan (losartan 25 mg Tab) By Mouth every day. Last Dose: Nex t Dose: metformin (metformin 1000 mg oral tablet, extended release) By Mouth every day. Last Dose: Nex t Dose: minocycline (minocycline 100 mg Cap) By Mouth every 12 hours. Last Dose: Nex t Dose: oxybutynin (oxybutynin 5 mg ER Tab) every day. Last Dose: Nex t Dose: tirzepatide (Mounjaro 5 mg/0.5 mL subcutaneous solution) Last Dose: Nex t Dose: venlafaxine (venlafaxine 75 mg Cap-ER) By Mouth every day. Last Dose: Nex t Dose: Comment: MEDICATION LIST PROVIDED FOR YOU IS A LIST OF YOUR CURRENT MEDICATIONS. PLEASE CARRY THIS WITH YOU AT ALL TIMES. acetaminophen (acetaminophen 325 mg Tab) 3 Tablets By Mouth every 6 hours. atorvastatin (atorvastatin 20 mg Tab) every day. busPIRone (busPIRone 5 mg Tab) By Mouth 2 times a day. docusate (docusate sodium 100 mg Cap) 1 Capsules By Mouth 2 times a day for 7 Days. Refills: 0. glimepiride (glimepiride 4 mg Tab) By Mouth every day. losartan (losartan 25 mg Tab) By Mouth every day. metformin (metformin 1000 mg oral tablet, extended release) By Mouth every day. minocycline (minocycline 100 mg Cap) By Mouth every 12 hours. oxybutynin (oxybutynin 5 mg ER Tab) every day. oxycodone (oxyCODONE 5 mg Tab) 1 Tablets By Mouth every 6 hours as needed Pain 8-10 for 3 Days. Refills: 0. tirzepatide (Mounjaro 5 mg/0.5 mL subcutaneous solution) venlafaxine (venlafaxine 75 mg Cap-ER) By Mouth every day. Pharmacy Information: Other: [facility] Mixon in [employer] Comment: PATIENT EDUCATION INFORMATION Instructions: Martin (more content not included)... [facility] Interdisciplinary Note - Alexander e Manageron 03-19-2024 Interdisciplinary Note - Residential Insurance Inspector Interdisciplinary Note - Residential Insurance Inspector CRM to room to discuss DC planning. Patient is awake, alert and oriented. Patient is from home with his spouse. She will transport at DC. Patient verified PCP, DME and insurance. Patient is here as inpatient, medicare form signed 03/14 and reviewed. Patient is here with abdomen pain. Patient had on 03/14 Exp. Lap lysis of adhesions, resection of hernia sac and ventral hernia repair. Patient is assigned to Trauma Team, see notes. Patient diet was made NPO due to concern for GI loss and possible procedure needed. Patient reports he has had BM. Patient has no c/o nausea and pain today. Patient would like some DME now such as sock aide, reachers and cane. No anticipated needs for PM, SNF or HH. CRM provided contact info and white board updated. CRM following CRM will get updates later this date from Trauma Team CRM still awaiting updates from physician but there is a DC order in [employer] faxed DME order down to us that was signed and we did send that into the DME company, still pending the approval [facility] Comment on above: Result Comment: Elec tronically Signed By: Bhavna Mcnair\.jeniffer\Date and Time Signed: 03/19/24 15:19 EDT Interdisciplinary Note - Residential Insurance Inspector Interdisciplinary Note - Residential Insurance Inspector CRM to room to discuss DC planning. Patient is awake, alert and oriented. Patient is from home with his spouse. She will transport at DC. Patient verified PCP, DME and insurance. Patient is here as inpatient, medicare form signed 03/14 and reviewed. Patient is here with abdomen pain. Patient had on 03/14 Exp. Lap lysis of adhesions, resection of hernia sac and ventral hernia repair. Patient is assigned to Trauma Team, see notes. Patient diet was made NPO due to concern for GI loss and possible procedure needed. Patient reports he has had BM. Patient has no c/o nausea and pain today. Patient would like some DME now such as sock aide, reachers and cane. No anticipated needs for PM, SNF or HH. CRM provided contact info and white board updated. CRM following CRM will get updates later this date from Trauma Team [facility] Comment on above: Result Comment: Elec tronically Signed By: Bhavna Mcnair\.jeniffer\Date and Time Signed: 03/19/24 09:36 EDT Interdisciplinary Note - Nut ritionon 03-19-2024 Interdisciplinary Note - Nutrition Interdisciplinary Note - Nutrition Pt rescreened due to LOS. Pt seen yesterday to discuss glycemic control, see DM ed form for details. Pt diet adv to regular and has fair appetite. Only c/o is constipation. Weight reviewed, noted to have lost 1.8 kg since adm. No nutrition needs identified, full assessment not indicated. Normal [facility] Comment on above: Result Comment: Elec tronically Signed By: Leoncio ROQUE, , Sharee\.br\Date and Time Signed: 03/19/24 09:37 EDT Magnesiumon 03-19-2024 Magnesium [Mass/Vol] 1.9 mg/dL Normal 1.3-2.4 [facility] Comment on above: Performed By: #### 2 [id number] #### [facility] [address] [place] [address] Phosphoruson 03-19-2024 Phosphate [Mass/Vol] 2.2 mg/dL Normal 1.9-4.6 [facility] Comment on above: Performed By: #### 2 [id number] #### [facility] [address] [place] [address] eGFRon 03-19-2024 eGFR 125 mL/min/1.73 m2 Normal >=59 [facility] Comment on above: Order Comment: Order added by Discern Expert. Performed By: #### 1 [id number] #### [facility] [address] [place] [address] CBC w/ Auto Diffon 4 Basophils/100 WBC (Bld) 0.7 % Normal 0.0-2.0 [facility] Comment on above: Performed By: #### 2 [id number] #### [facility] [address] [place] [address] Basophils/Leukocytes Auto (Bld) [Pure # fraction] 0.1 E9/L Normal 0.0-0.2 [facility] Comment on above: Performed By: #### 2 [id number] #### [facility] [address] [place] [address] Eosinophils (Bld) [#/Vol] 0.1 E9/L Normal 0.0-0.5 [facility] Comment on above: Performed By: #### 2 [id number] #### [facility] [address] [place] [address] Eosinophils/100 WBC (Bld) 0.9 % Normal 0.0-8.0 [facility] Comment on above: Performed By: #### 2 [id number] #### [facility] [address] [place] [address] Erythrocyte distribution width (RBC) [Ratio] 15.6 % High 10.9-14.2 [facility] Comment on above: Performed By: #### 2 [id number] #### [facility] [address] [place] [address] Hematocrit (Bld) [Volume fraction] 28.2 % Low 37.7-49.0 [facility] Comment on above: Performed By: #### 2 [id number] #### [facility] [address] [place] [address] Hemoglobin (Bld) [Mass/Vol] 9.2 g/dL Low 13.5-17.5 [facility] Comment on above: Performed By: #### 2 [id number] #### [facility] [address] [place] [address] Lymphocytes (Bld) [#/Vol] 1.8 E9/L Normal 1.0-4.0 [facility] Comment on above: Performed By: #### 2 [id number] #### [facility] [address] [place] [address] Lymphocytes/100 WBC (Bld) 14.3 % Normal 14.0-50.0 [facility] Comment on above: Performed By: #### 2 [id number] #### [facility] [address] [place] [address] MCH (RBC) [Entitic mass] 27.9 pg Normal 27.0-34.0 [facility] Comment on above: Performed By: #### 2 [id number] #### [facility] [address] [place] [address] MCHC (RBC) [Mass/Vol] 32.7 g/dL Normal 31.4-36.0 [facility] Comment on above: Performed By: #### 2 [id number] #### [facility] [address] [place] [address] MCV (RBC) [Entitic vol] 85.2 fL Normal 80.0-100.0 [facility] Comment on above: Performed By: #### 2 [id number] #### [facility] [address] [place] [address] Monocytes (Bld) [#/Vol] 1.1 E9/L High 0.2-1.0 [facility] Comment on above: Performed By: #### 2 [id number] #### [facility] [address] [place] [address] Neutrophils (Bld) [#/Vol] 9.6 E9/L High 2.0-7.5 [facility] Comment on above: Performed By: #### 2 [id number] #### [facility] [address] [place] [address] Neutrophils/100 WBC (Bld) 75.7 % High 36.0-75.0 [facility] Comment on above: Performed By: #### 2 [id number] #### [facility] [address] [place] [address] Platelet mean volume (Bld) [Entitic vol] 7.6 fL Normal 6.4-10.8 [facility] Comment on above: Performed By: #### 2 [id number] #### [facility] [address] [place] [address] Platelets (Bld) [#/Vol] 318.0 E9/L Normal 150.0-500. 0 [facility] Comment on above: Performed By: #### 2 [id number] #### [facility] [address] [place] [address] RBC (Bld) [#/Vol] 3.3 E12/L Low 4.3-5.9 [facility] Comment on above: Performed By: #### 2 [id number] #### [facility] [address] [place] [address] WBC corrected for nucl RBC Auto (Bld) [#/Vol] 12.7 E9/L High 4.0-11.0 [facility] Comment on above: Performed By: #### 2 [id number] #### [facility] [address] [place] [address] Basophils/100 WBC (Bld) 0.5 % Normal 0.0-2.0 [facility] Comment on above: Performed By: #### 2 [id number] #### [facility] [address] [place] [address] Basophils/Leukocytes Auto (Bld) [Pure # fraction] 0.1 E9/L Normal 0.0-0.2 [facility] Comment on above: Performed By: #### 2 [id number] #### [facility] [address] [place] [address] Eosinophils (Bld) [#/Vol] 0.1 E9/L Normal 0.0-0.5 [facility] Comment on above: Performed By: #### 2 [id number] #### [facility] [address] [place] [address] Eosinophils/100 WBC (Bld) 0.8 % Normal 0.0-8.0 [facility] Comment on above: Performed By: #### 2 [id number] #### [facility] [address] [place] [address] Erythrocyte distribution width (RBC) [Ratio] 15.6 % High 10.9-14.2 [facility] Comment on above: Performed By: #### 2 [id number] #### [facility] [address] [place] [address] Hematocrit (Bld) [Volume fraction] 27.5 % Low 37.7-49.0 [facility] Comment on above: Performed By: #### 2 776108 #### [facility] [address] [place] [address] Hemoglobin (Bld) [Mass/Vol] 9.0 g/dL Low 13.5-17.5 [facility] Comment on above: Performed By: #### 2 [id number] #### [facility] [address] [place] [address] Lymphocytes (Bld) [#/Vol] 1.9 E9/L Normal 1.0-4.0 [facility] Comment on above: Performed By: #### 2 [id number] #### [facility] [address] [place] [address] Lymphocytes/100 WBC (Bld) 15.7 % Normal 14.0-50.0 [facility] Comment on above: Performed By: #### 2 [id number] #### [facility] [address] [place] [address] MCH (RBC) [Entitic mass] 27.8 pg Normal 27.0-34.0 [facility] Comment on above: Performed By: #### 2 [id number] #### [facility] [address] [place] [address] MCHC (RBC) [Mass/Vol] 32.8 g/dL Normal 31.4-36.0 [facility] Comment on above: Performed By: #### 2 [id number] #### [facility] [address] [place] [address] MCV (RBC) [Entitic vol] 84.8 fL Normal 80.0-100.0 [facility] Comment on above: Performed By: #### 2 [id number] #### [facility] [address] [place] [address] Monocytes (Bld) [#/Vol] 1.0 E9/L Normal 0.2-1.0 [facility] Comment on above: Performed By: #### 2 [id number] #### [facility] [address] [place] [address] Neutrophils (Bld) [#/Vol] 9.1 E9/L High 2.0-7.5 [facility] Comment on above: Performed By: #### 2 [id number] #### [facility] [address] [place] [address] Neutrophils/100 WBC (Bld) 75.1 % High 36.0-75.0 [facility] Comment on above: Performed By: #### 2 [id number] #### [facility] [address] [place] [address] Platelet mean volume (Bld) [Entitic vol] 7.5 fL Normal 6.4-10.8 [facility] Comment on above: Performed By: #### 2 647106 #### [facility] [address] [place] [address] Platelets (Bld) [#/Vol] 306.0 E9/L Normal 150.0-500. 0 [facility] Comment on above: Performed By: #### 2 308692 #### [facility] [address] [place] [address] RBC (Bld) [#/Vol] 3.2 E12/L Low 4.3-5.9 [facility] Comment on above: Performed By: #### 2 499130 #### [facility] [address] [place] [address] WBC corrected for nucl RBC Auto (Bld) [#/Vol] 12.1 E9/L High 4.0-11.0 [facility] Comment on above: Performed By: #### 2 [id number] #### [facility] [address] [place] [address] CHEMISTRYOrdered By: SYSTEM SYSTEM on 03-18-2024 Anion gap [Moles/Vol] 12 mmol/L Normal 6 - 16 mEq/L [facility] Calcium [Mass/Vol] 7.8 mg/dL Low 8.9 - 11. 1 mg/dL [facility] Chloride [Moles/Vol] 103 mmol/L Normal 101 - 1 11 mmol/L [facility] CO2 [Moles/Vol] 24 mmol/L Normal 21 - 31 mmol/L [facility] Creatinine [Mass/Vol] 0.5 mg/dL Normal 0.5 - 1.3 mg/dL [facility] eGFR 125 mL/min/1.73 m2 Normal >=59mL/mi n /1.73 m2 [facility] Glucose [Mass/Vol] 225 mg/dL High 55 - 199 mg/dL [facility] Magnesium [Mass/Vol] 2.0 mg/dL Normal 1.3 - 2 .4 mg/dL [facility] Phosphate [Mass/Vol] 1.3 mg/dL Low 1.9 - 4 .6 mg/dL [facility] Potassium [Moles/Vol] 3.6 mmol/L Normal 3.5 - 5.3 mmol/L [facility] Sodium [Moles/Vol] 135 mmol/L Normal 135 - 145 mmol/L [facility] Urea nitrogen [Mass/Vol] 11 mg/dL Normal 5 - 21 mg/dL [facility] Urea nitrogen/Creatinine [Mass ratio] 22 mg/mg High 10 - 20 [facility] Capillary Glucose POCon 03-09 Glucose [Mass/Vol] 275 mg/dL High 55-99 [facility] Comment on above: Result Comment: Isabelle adames RN/ Performed By: #### 2 [id number] #### [facility] [address] [place] [address] Glucose [Mass/Vol] 231 mg/dL High 55-99 [facility] Comment on above: Result Comment: Tisha velásquez Meter Performed By: #### 2 [id number] #### [facility] [address] [place] [address] MICRO OTHER TESTSOrdered By: Natalia Burns on 03-18-2024 Occult blood panel (Stl) Positive *ABN* (03/18/24 4:01 PM) Invalid Interpretation Code Negative [facility] Sero Stl Oclt Bldon 03-18-2024 Occult blood panel (Stl) Positive Abnormal Negative [facility] Comment on above: Performed By: #### 2 [id number] #### [facility] [address] [place] [address] BMPon 03-17-2024 Anion gap [Moles/Vol] 12 mmol/L Normal 6-16 [facility] Comment on above: Performed By: #### 2 [id number] #### [facility] [address] [place] [address] Calcium [Mass/Vol] 7.8 mg/dL Low 8.9-11.1 [facility] Comment on above: Performed By: #### 2 195529 #### [facility] [address] [place] [address] Chloride [Moles/Vol] 103 mmol/L Normal 101-111 [facility] Comment on above: Performed By: #### 2 [id number] #### [facility] [address] [place] [address] CO2 [Moles/Vol] 25 mmol/L Normal 21-31 [facility] Comment on above: Performed By: #### 2 [id number] #### [facility] [address] [place] [address] Creatinine [Mass/Vol] 0.7 mg/dL Normal 0.5-1.3 [facility] Comment on above: Performed By: #### 2 [id number] #### [facility] [address] [place] [address] Glucose [Mass/Vol] 240 mg/dL High 55-199 [facility] Comment on above: Performed By: #### 2 [id number] #### [facility] [address] [place] [address] Potassium [Moles/Vol] 3.8 mmol/L Normal 3.5-5.3 [facility] Comment on above: Performed By: #### 2 [id number] #### [facility] [address] [place] [address] Sodium [Moles/Vol] 136 mmol/L Normal 135-145 [facility] Comment on above: Performed By: #### 2 [id number] #### [facility] [address] [place] [address] Urea nitrogen [Mass/Vol] 16 mg/dL Normal 5-21 [facility] Comment on above: Performed By: #### 2 [id number] #### [facility] [address] [place] [address] Urea nitrogen/Creatinine [Mass ratio] 23 No Units High 10-20 [facility] Comment on above: Performed By: #### 2 [id number] #### [facility] [address] [place] [address] CBC w/ Auto Diffon 4 Basophils/100 WBC (Bld) 0.2 % Normal 0.0-2.0 [facility] Comment on above: Performed By: #### 2 [id number] #### [facility] [address] [place] [address] Basophils/Leukocytes Auto (Bld) [Pure # fraction] 0.0 E9/L Normal 0.0-0.2 [facility] Comment on above: Performed By: #### 2 [id number] #### [facility] [address] [place] [address] Eosinophils (Bld) [#/Vol] 0.0 E9/L Normal 0.0-0.5 [facility] Comment on above: Performed By: #### 2 [id number] #### [facility] [address] [place] [address] Eosinophils/100 WBC (Bld) 0.1 % Normal 0.0-8.0 [facility] Comment on above: Performed By: #### 2 [id number] #### [facility] [address] [place] [address] Erythrocyte distribution width (RBC) [Ratio] 16.1 % High 10.9-14.2 [facility] Comment on above: Performed By: #### 2 527908 #### [facility] [address] [place] [address] Hematocrit (Bld) [Volume fraction] 30.6 % Low 37.7-49.0 [facility] Comment on above: Performed By: #### 2 [id number] #### [facility] [address] [place] [address] Hemoglobin (Bld) [Mass/Vol] 10.1 g/dL Low 13.5-17.5 [facility] Comment on above: Performed By: #### 2 [id number] #### [facility] [address] [place] [address] Lymphocytes (Bld) [#/Vol] 1.3 E9/L Normal 1.0-4.0 [facility] Comment on above: Performed By: #### 2 [id number] #### [facility] [address] [place] [address] Lymphocytes/100 WBC (Bld) 8.1 % Low 14.0-50.0 [facility] Comment on above: Performed By: #### 2 [id number] #### [facility] [address] [place] [address] MCH (RBC) [Entitic mass] 27.8 pg Normal 27.0-34.0 [facility] Comment on above: Performed By: #### 2 [id number] #### [facility] [address] [place] [address] MCHC (RBC) [Mass/Vol] 32.8 g/dL Normal 31.4-36.0 [facility] Comment on above: Performed By: #### 2 [id number] #### [facility] [address] [place] [address] MCV (RBC) [Entitic vol] 84.7 fL Normal 80.0-100.0 [facility] Comment on above: Performed By: #### 2 [id number] #### [facility] [address] [place] [address] Monocytes (Bld) [#/Vol] 1.6 E9/L High 0.2-1.0 [facility] Comment on above: Performed By: #### 2 [id number] #### [facility] [address] [place] [address] Neutrophils (Bld) [#/Vol] 12.9 E9/L High 2.0-7.5 [facility] Comment on above: Performed By: #### 2 [id number] #### [facility] [address] [place] [address] Neutrophils/100 WBC (Bld) 81.8 % High 36.0-75.0 [facility] Comment on above: Performed By: #### 2 [id number] #### [facility] [address] [place] [address] Platelet mean volume (Bld) [Entitic vol] 7.4 fL Normal 6.4-10.8 [facility] Comment on above: Performed By: #### 2 [id number] #### [facility] [address] [place] [address] Platelets (Bld) [#/Vol] 290.0 E9/L Normal 150.0-500. 0 [facility] Comment on above: Performed By: #### 2 [id number] #### [facility] [address] [place] [address] RBC (Bld) [#/Vol] 3.6 E12/L Low 4.3-5.9 [facility] Comment on above: Performed By: #### 2 [id number] #### [facility] [address] [place] [address] WBC corrected for nucl RBC Auto (Bld) [#/Vol] 15.8 E9/L High 4.0-11.0 [facility] Comment on above: Performed By: #### 2 [id number] #### [facility] [address] [place] [address] CHEMISTRYOrdered By: SYSTEM SYSTEM on 03-17-2024 Anion gap [Moles/Vol] 12 mmol/L Normal 6 - 16 mEq/L Remisol Chem Calcium [Mass/Vol] 7.8 mg/dL Low 8.9 - 11. 1 mg/dL Rem[facility] Chem Chloride [Moles/Vol] 103 mmol/L Normal 101 - 1 11 mmol/L Rem[facility] Chem CO2 [Moles/Vol] 25 mmol/L Normal 21 - 31 mmol/L Rem[facility] Chem Creatinine [Mass/Vol] 0.7 mg/dL Normal 0.5 - 1.3 mg/dL Remisol Chem eGFR 113 mL/min/1.73 m2 Normal >=59mL/mi n /1.73 m2 Remisol Chem Glucose [Mass/Vol] 240 mg/dL High 55 - 199 mg/dL Remisol Chem Magnesium [Mass/Vol] 2.2 mg/dL Normal 1.3 - 2 .4 mg/dL Rem[facility] Chem Phosphate [Mass/Vol] 2.0 mg/dL Normal 1.9 - 4 .6 mg/dL [facility] Chem Potassium [Moles/Vol] 3.8 mmol/L Normal 3.5 - 5.3 mmol/L Rem[facility] Chem Sodium [Moles/Vol] 136 mmol/L Normal 135 - 145 mmol/L Remisol Chem Urea nitrogen [Mass/Vol] 16 mg/dL Normal 5 - 21 mg/dL Remisol Chem Urea nitrogen/Creatinine [Mass ratio] 23 mg/mg High 10 - 20 Remisol Chem Capillary Glucose POCon Glucose [Mass/Vol] 193 mg/dL High 55-99 [facility] Comment on above: Result Comment: Isabelle adames RN/ Performed By: #### 2 [id number] #### [facility] [address] [place] [address] Inpatient Clinical Summaryon 03-17-2024 Inpatient Clinical Summary Inpatient Clinical Summary [address] [address] Clinical Summary Person Information: Name: CHRISTIAN SHELBY Age: 48 Years : 1975 Sex: Male PCP: JOAN OROSCO CNP Marital Status: Phone: [phone] Race: White Ethnicity: Non- or Language: Serbian Visit Id: Visit Reason: Hernia; Abdominal pain; HERNIA IN LOWER STOMACH AREA Speciality: Acuity: Enc Type: Inpatient Med Service: Medical Arrival: 03/14/2024 17:37:38 Discharge: Dispo Type: Admitted as IP to this Hosp Address: [address] [facility] [phone] Provider Notes: Diagnosis: 1:Ventral hernia Problems Active Scrotal abscess Left groin mass Abdominal hernia Recurrent scrotal infection Anxiety Smoker Morbid obesity Type II diabetes mellitus Smoking Status: Former Smoker Functional Status: Sensory Deficits: History of Falls: Mobility Assistance Prior to Admission: ADLs: Minimal assistance Current Level of Assistance for Self-Care/Mobility: Cognitive Status: Oriented x 3 Allergies No Known Medication Allergies Measurements: Height: 185.42 cm Weight: 179.8 kg Blood Pressure: 171 mmHg / 79 mmHg BMI: 52.88 kg/m2 Procedures No Procedures Documented Immunizations No Immunizations Documented This Visit Final Med List: atorvastatin (atorvastatin 20 mg Tab) every day. busPIRone (busPIRone 5 mg Tab) By Mouth 2 times a day. glimepiride (glimepiride 4 mg Tab) By Mouth every day. losartan (losartan 25 mg Tab) By Mouth every day. metformin (metformin 1000 mg oral tablet, extended release) By Mouth every day. minocycline (minocycline 100 mg Cap) By Mouth every 12 hours. oxybutynin (oxybutynin 5 mg ER Tab) every day. tirzepatide (Mounjaro 5 mg/0.5 mL subcutaneous solution) venlafaxine (venlafaxine 75 mg Cap-ER) By Mouth every day. Care Team Members: Attending Physician: Jason West MD Consulting Physician: Referring Physician: Follow up: Patient Education Information: Diet - Basic Carbohydrate Counting (Custom) Normal [facility] Inpatient Patient Summaryon 03-17-2024 Inpatient Patient Summary Inpatient Patient Summary [place] [id number] Patient Discharge Instructions PERSON INFORMATION Name: CHRISTIAN SHELBY Date of : 1975 Current Date: 03/17/2024 07:59:09 PHYSICIANS Admitting Physician: Jason West MD Primary Care Physician: JOAN OROSCO CNP PCP Phone Number: [phone] Comment: Discharge Diagnosis: 1:Ventral hernia Condition at Discharge: CHRISTIAN SHELBY has been given the following list of follow-up instructions, prescriptions, and patient education materials: PATIENT FOLLOW-UP INFORMATION Diet: Discharge Activity: Discharge Restrictions: Wound Care Instructions: Remove Your Dressing In Days Call Your Doctor For: IF UNABLE TO CONTACT YOUR PHYSICIAN AND YOU FEEL IT IS AN EMERGENCY, GO TO THE NEAREST EMERGENCY ROOM OR CALL 911 Home Treatment: Devices/Equipment: None Special Services: Additional Instructions: Primary Care Physician to provide the following pending test results: Follow up: In the event that this physician does not participate in your insurance network, please consult with your insurance company to find a nearby participating provider. Comment: I, CHRISTIAN SHELBY, have received the attached patient education materials/instructions and have verbalized understanding: Patient Signature Date Clinican/Nurse Signature Date HERE ARE THE MEDICATION CHANGES THAT OCCURRED DURING YOUR HOSPITAL STAY Medications to Continue with No Changes Other Medications atorvastatin (atorvastatin 20 mg Tab) every day. Last Dose: Nex t Dose: busPIRone (busPIRone 5 mg Tab) By Mouth 2 times a day. Last Dose: Nex t Dose: glimepiride (glimepiride 4 mg Tab) By Mouth every day. Last Dose: Nex t Dose: losartan (losartan 25 mg Tab) By Mouth every day. Last Dose: Nex t Dose: metformin (metformin 1000 mg oral tablet, extended release) By Mouth every day. Last Dose: Nex t Dose: minocycline (minocycline 100 mg Cap) By Mouth every 12 hours. Last Dose: Nex t Dose: oxybutynin (oxybutynin 5 mg ER Tab) every day. Last Dose: Nex t Dose: tirzepatide (Mounjaro 5 mg/0.5 mL subcutaneous solution) Last Dose: Nex t Dose: venlafaxine (venlafaxine 75 mg Cap-ER) By Mouth every day. Last Dose: Nex t Dose: Comment: MEDICATION LIST PROVIDED FOR YOU IS A LIST OF YOUR CURRENT MEDICATIONS. PLEASE CARRY THIS WITH YOU AT ALL TIMES. atorvastatin (atorvastatin 20 mg Tab) every day. busPIRone (busPIRone 5 mg Tab) By Mouth 2 times a day. glimepiride (glimepiride 4 mg Tab) By Mouth every day. losartan (losartan 25 mg Tab) By Mouth every day. metformin (metformin 1000 mg oral tablet, extended release) By Mouth every day. minocycline (minocycline 100 mg Cap) By Mouth every 12 hours. oxybutynin (oxybutynin 5 mg ER Tab) every day. tirzepatide (Mounjaro 5 mg/0.5 mL subcutaneous solution) venlafaxine (venlafaxine 75 mg Cap-ER) By Mouth every day. Pharmacy Information: Comment: PATIENT EDUCATION INFORMATION Instructions: Carbohydrate Counting for People with Diabetes Why Is Carbohydrate Counting Important? Counting carbohydrate servings may help you to control your blood glucose level so that you feel better. The balance between the carbohydrates you eat and insulin determines what your blood glucose level will be after eating. Carbohydrate counting can also help you plan your meals. Which Foods Have Carbohydrates? Foods with carbohydrates include: - Breads, crackers, and cereals - Pasta, rice, and grains - Starchy vegetables, such as potatoes, corn, and peas - Beans and legumes - Milk, soy milk, and yogurt - Fruits and fruit juices - Sweets, such as cakes, cookies, ice cream, jam, and jelly Carbohydrate Servings In diabetes meal planning, 1 serving of a food with carbohydrate has about 15 grams of carbohydrate: - Check serving sizes with measuring cups and spoons or a food scale. - Read the Nutrition Facts on food labels to find out how many grams of carbohydrate are in foods you eat. - The food lists in this handout show portions that have about 15 grams of carbohydrate. Food Lists for Carbohydrate Counting 1 serving = about 15 grams of carbohydrate Starches 1 slice bread (1 ounce) 1 tortilla (6-inch size) 1/4 large bagel (1 ounce) 2 taco shells (5-inch size) 1/2 hamburger or hot dog bun (1 ounce) 3/4 cup [id number] cereal 1/2 cup cooked cereal 1 cup broth-based soup 4-6 small experimental mechanic spacecraft (more content not included)... Normal [facility] Interdisciplinary Note - Alexander e Manageron 03-17-2024 Interdisciplinary Note - Residential Insurance Inspector Interdisciplinary Note - Residential Insurance Inspector CRM to room to discuss DC planning. Patient is awake, alert and oriented. Patient is from home with his spouse. She will transport at [place]. Patient verified PCP, DME and insurance. Patient is here as inpatient, medicare form signed 03/14 and reviewed. Patient is here with abdomen pain. Patient had on 03/14 Exp. Lap lysis of adhesions, resection of hernia sac and ventral hernia repair. Patient is assigned to Trauma Team, see notes. Patient diet was advanced to clears 03/16. Patient does have c/o nausea today. he has oxygen on and does not wear at home. Patient does not anticipate DC needs but will await progress. PT/OT with OT recs SNF, PT thinks will progress to no needs. Patient does not want a SNF stay. He does not think he will need HH but wants to await progress. CRM provided contact info and white board updated. CRM following DC date per Trauma is a goal of Saturday Normal [facility] Comment on above: Result Comment: Elec tronically Signed By: Bhavna Mcnair\.br\Date and Time Signed: 03/17/24 08:45 EDT Magnesiumon 03-17-2024 Magnesium [Mass/Vol] 2.2 mg/dL Normal 1.3-2.4 [facility] Comment on above: Performed By: #### 2 [id number] #### [facility] [address] [place] [address] Main OR Intraoperative Recor don 03-17-2024 Main OR Intraoperative Record Main OR Intraoperative Record IntraOp Document Type FT Summary Primary Physician: Jason West MD Finalized Date/Time: 03/17/24 10:26:36 Pt. Name: CHRISTIAN SHELBY/Sex: 1975 Male Med Rec #: [id number] Physician: Jason West MD Financial #: [id number] Pt. Type: I Room/Bed: [place] [address] Admit/Disch: 03/14/24 17:37:38 - Institution: Case Times FT Entry 1 Patient Times In Room 03/15/24 09:58:00 Out Room 03/15/24 13:44:00 Procedure Times Start 03/15/24 10:33:00 Stop 03/15/24 13:36:00 Anesthesia Times Start 03/15/24 09:58:00 Stop 03/15/24 13:44:00 Last Modified By: Petra WILHELM, Rosaura Peter 03/15/24 14:04:21 General Comments: 03/17/24 Chart opened to review and send charges [facility]oth CSFA Case Attendance FT Entry 1 Entry 2 Entry 3 Case Attendee Roverto Sharpe DO, Ambrosio West MD, Jason Lambert RN, Rosaura Peter Role Performed Anesthesiologist of Surgeon - Primary Distribution Sales Manager - Primary Record Time In 03/15/24 09:58:00 03/15/24 09:58:00 03/15/24 09:58:00 Time Out 03/15/24 13:44:00 03/15/24 13:44:00 03/15/24 13:44:00 Procedure LAPAROTOMY EXPLORATORY LAPAROTOMY EXPLORATORY LAPAROTOMY EXPLORATORY Comments Last Modified By: Petra RN, Rosaura Lambert RN, Rosaura Lambert RN, Rosaura Marie P 03/15/24 Cynthia P 03/15/24 Cynthia P 03/15/24 14:04:22 14:04:22 14:04:22 Entry 4 Entry 5 Entry 6 Case Attendee Abhinav Bailey Madison A Hargrove, Bryce Role Performed BULL GANG SUPERVISOR Scrub - Primary Exhibit Specialist Time In 03/15/24 09:58:00 03/15/24 09:58:00 03/15/24 09:58:00 Time Out 03/15/24 13:44:00 03/15/24 13:44:00 03/15/24 11:46:00 Procedure LAPAROTOMY EXPLORATORY LAPAROTOMY EXPLORATORY LAPAROTOMY EXPLORATORY Comments Last Modified By: Petra RN, Rosaura Lambert RN, Rosaura Lambert RN, Rosaura Marie P 03/15/24 Cynthia P 03/15/24 Cynthia P 03/15/24 14:04:22 14:04:22 14:04:22 Perioperative Protocols FT Pre-Care Text: Implements protective measures prior to operative or invasive procedure, confirms identity before the operative or invasive procedure, verifies operative procedure, surgical site, and laterality Entry 1 Procedure(s) LAPAROTOMY EXPLORATORY Patient Identity Birthday, Blood Band, Verified (select at ID Band Check, Patient least 2): Participation Consents / H and P HandP, Surgery/Procedure Operative Site N/A Verified Consent, Transfusion Marking Verified Consent Surgical Site Yes Laterality Verified n/a Verified Procedure Verified Yes Correct Patient Yes Position Verified Availability Equipment, Medication Prep Dry Yes Verified (If Applicable) PreOp Antibiotic Yes Time Out Brett MARTINEZ, Roverto Trinh Participants , Petra Breen RN, Leo Trejo Alejandro, Chaput, Madison A Time Out Complete 03/15/24 10:30:00 Outcomes Met? Yes Last Modified By: Rosaura Lambert RN 03/15/24 10:31:37 Post-Care Text: The patient is free from signs and symptoms of injury caused by extraneous objects Allergy Information FT Pre-Care Text: Verifies allergies Entry 1 Allergies Reviewed? Yes Allergies Reviewed Self/Patient With Outcomes Met? Yes Last Modified By: Rosaura Lambert RN 03/15/24 10:31:43 Post-Care Text: The patient received appropriate medication(s) safely administered during the perioperative period Surgical Procedures FT Entry 1 Procedure Description Procedure LAPAROTOMY EXPLORATORY Surgeon Description EXPLORATORY LAPAROTOMY, LYSIS OF ADHESIONS, VENTRAL HERNIA REPAIR, INTRAOPERATIVE TAP BLOCK Primary Procedure Yes Primary Surgeon Brett MARTINEZ, Jason García Start 03/15/24 10:33:00 Stop 03/15/24 13:36:00 Anesthesia Type General Surgical Service General Wound Class 1 - Clean Last Modified By: Rosaura Lambert RN 03/15/24 13:36:47 General Case Data FT Pre-Care Text: Classifies surgical wound, implements aseptic technique, initiates traffic control Entry 1 Case Information OR OR 2 FT Case Level Level 4 Wound Class 1 - Clean Specialty General ASA Class 4E Preop Diagnosis Incarcerated ventral Postop Same As Preop No hernia Postop Diagnosis Ventral wall hernia Outcomes Met? Yes Last Modified By: Rosaura Lambert RN 03/15/24 13:22:20 Post-Care Text: The patient is free from signs and symptoms of infection Skin Assessment (Pre Procedure) FT Pre-Care Text: Implements protective measures to prevent skin/ tissue injury due to thermal or mechanical sources Evaluates for signs and symptoms of physical injury to skin and tissue Entry 1 Skin Integrity Red, Intact, Warm, Dry, Skin Abnormality Yes Other/See Comments Abnormality Location redness on bellybutton Outcomes Met? Yes area, bulging hernia on left lower quadrant of abdomen Last Modified By: Rosaura Lambert RN 03/15/24 10:49:54 Post-Care Text: The patient is free from signs and symptoms of injury caused by extraneous objects Patient Positioning FT Pre-Care Te (more content not included)... Normal [facility] eGFRon 03-17-2024 eGFR 113 mL/min/1.73 m2 Normal >=59 [facility] Comment on above: Order Comment: Order added by Discern Expert. Performed By: #### 1 [id number] #### [facility] [address] [place] [address] BMPon 03-16-2024 Anion gap [Moles/Vol] 14 mmol/L Normal 6-16 [facility] Comment on above: Performed By: #### 2 [id number] #### [facility] [address] [place] [address] Calcium [Mass/Vol] 7.7 mg/dL Low 8.9-11.1 [facility] Comment on above: Performed By: #### 2 [id number] #### [facility] [address] [place] [address] Chloride [Moles/Vol] 105 mmol/L Normal 101-111 [facility] Comment on above: Performed By: #### 2 [id number] #### [facility] [address] [place] [address] CO2 [Moles/Vol] 22 mmol/L Normal 21-31 [facility] Comment on above: Performed By: #### 2 [id number] #### [facility] [address] [place] [address] Creatinine [Mass/Vol] 0.8 mg/dL Normal 0.5-1.3 [facility] Comment on above: Performed By: #### 2 [id number] #### [facility] [address] [place] [address] Glucose [Mass/Vol] 279 mg/dL High 55-199 [facility] Comment on above: Performed By: #### 2 [id number] #### [facility] [address] [place] [address] Potassium [Moles/Vol] 4.0 mmol/L Normal 3.5-5.3 [facility] Comment on above: Performed By: #### 2 [id number] #### [facility] [address] [place] [address] Sodium [Moles/Vol] 137 mmol/L Normal 135-145 [facility] Comment on above: Performed By: #### 2 [id number] #### [facility] [address] [place] [address] Urea nitrogen [Mass/Vol] 17 mg/dL Normal 5-21 [facility] Comment on above: Performed By: #### 2 [id number] #### [facility] [address] [place] [address] Urea nitrogen/Creatinine [Mass ratio] 21 No Units High 10-20 [facility] Comment on above: Performed By: #### 2 [id number] #### [facility] [address] [place] [address] CBC w/ Auto Diffon 4 Basophils/100 WBC (Bld) 0.2 % Normal 0.0-2.0 [facility] Comment on above: Performed By: #### 2 [id number] #### [facility] [address] [place] [address] Basophils/Leukocytes Auto (Bld) [Pure # fraction] 0.0 E9/L Normal 0.0-0.2 [facility] Comment on above: Performed By: #### 2 [id number] #### [facility] [address] [place] [address] Eosinophils (Bld) [#/Vol] 0.0 E9/L Normal 0.0-0.5 [facility] Comment on above: Performed By: #### 2 [id number] #### [facility] [address] [place] [address] Eosinophils/100 WBC (Bld) 0.0 % Normal 0.0-8.0 [facility] Comment on above: Performed By: #### 2 [id number] #### [facility] [address] [place] [address] Erythrocyte distribution width (RBC) [Ratio] 16.3 % High 10.9-14.2 [facility] Comment on above: Performed By: #### 2 [id number] #### [facility] [address] [place] [address] Hematocrit (Bld) [Volume fraction] 35.3 % Low 37.7-49.0 [facility] Comment on above: Performed By: #### 2 [id number] #### [facility] [address] [place] [address] Hemoglobin (Bld) [Mass/Vol] 11.7 g/dL Low 13.5-17.5 [facility] Comment on above: Performed By: #### 2 [id number] #### [facility] [address] [place] [address] Lymphocytes (Bld) [#/Vol] 1.0 E9/L Normal 1.0-4.0 [facility] Comment on above: Performed By: #### 2 [id number] #### [facility] [address] [place] [address] Lymphocytes/100 WBC (Bld) 6.3 % Low 14.0-50.0 [facility] Comment on above: Performed By: #### 2 [id number] #### [facility] [address] [place] [address] MCH (RBC) [Entitic mass] 27.9 pg Normal 27.0-34.0 [facility] Comment on above: Performed By: #### 2 [id number] #### [facility] [address] [place] [address] MCHC (RBC) [Mass/Vol] 33.1 g/dL Normal 31.4-36.0 [facility] Comment on above: Performed By: #### 2 [id number] #### [facility] [address] [place] [address] MCV (RBC) [Entitic vol] 84.4 fL Normal 80.0-100.0 [facility] Comment on above: Performed By: #### 2 [id number] #### [facility] [address] [place] [address] Monocytes (Bld) [#/Vol] 1.9 E9/L High 0.2-1.0 [facility] Comment on above: Performed By: #### 2 [id number] #### [facility] [address] [place] [address] Neutrophils (Bld) [#/Vol] 13.5 E9/L High 2.0-7.5 [facility] Comment on above: Performed By: #### 2 [id number] #### [facility] [address] [place] [address] Neutrophils/100 WBC (Bld) 82.1 % High 36.0-75.0 [facility] Comment on above: Performed By: #### 2 [id number] #### [facility] [address] [place] [address] Platelet 340.0 E9/L Normal 150.0-500. 0 [facility] Comment on above: Performed By: #### 2 [id number] #### [facility] [address] [place] [address] Platelet mean volume (Bld) [Entitic vol] 7.1 fL Normal 6.4-10.8 [facility] Comment on above: Performed By: #### 2 [id number] #### [facility] [address] [place] [address] RBC (Bld) [#/Vol] 4.2 E12/L Low 4.3-5.9 [facility] Comment on above: Performed By: #### 2 [id number] #### [facility] [address] [place] [address] WBC corrected for nucl RBC Auto (Bld) [#/Vol] 16.5 E9/L High 4.0-11.0 [facility] Comment on above: Result Comment: Ekaterina pheral smear review performed. Performed By: #### 2 [id number] #### [facility] [address] [place] [address] Capillary Glucose POCon Glucose [Mass/Vol] 224 mg/dL High 55-99 [facility] Comment on above: Result Comment: Isabelle adames RN/ Performed By: #### 2 [id number] #### [facility] [address] [place] [address] Glucose [Mass/Vol] 242 mg/dL High 55-99 [facility] Comment on above: Result Comment: Isabelle adames RN/ Performed By: #### 2 [id number] #### [facility] [address] [place] [address] Glucose [Mass/Vol] 253 mg/dL High 55-99 [facility] Comment on above: Result Comment: Isabelle adames RN/ Performed By: #### 2 [id number] #### [facility] [address] [place] [address] Glucose [Mass/Vol] 261 mg/dL High 55-99 [facility] Comment on above: Result Comment: Isabelle adames RN/ Performed By: #### 2 [id number] #### [facility] [address] [place] [address] ED Note-Physicianon 03-16-20 ED Note-Physician ED Note-Physician Basic Information Time Seen: Baljit Moyer PA-C 03/14/2024 17:49 History of Present Illness 48-year-old male comes to the ED for evaluation of a ventral hernia. He has known ventral hernia. This has been present for quite some time. He presents with acute pain and discomfort started today. States the hernia periodically protrudes but he is able to self reduce, not able to reduce today. He has localized pain to the area. He has had some nausea but no vomiting. Believes the hernia protruded around 10 AM this morning. Review of Systems A 10 point review of systems is negative except as noted above. Medical and Surgical History: Reviewed and noted Social history: Lives at home Tobacco: Denies Physical Exam Vitals & Measurements T: 36.4 ?C(Oral) HR: 85(Peripheral) RR: 20 BP: 212/90 SpO2: 99% HT: 185.42 cm WT: 182 kg BMI: 52.94 Nurses notes and vital signs reviewed and patient is not hypoxic. General: Appears uncomfortable but not in distress Skin: Warm, dry. Head: Atraumatic. Neck: No JVD. Eye: Normal conjunctiva. Ears, Nose, Mouth, and Throat: Moist mucous membranes. Cardiovascular: Strong distal pulses. Chest wall: Respiratory: Respirations are nonlabored. Back: Normal range of motion. Musculoskeletal: Normal ROM with no gross deformity. Gastrointestinal: Large ventral hernia. Firm and tender. No overlying skin changes. Remainder of the abdomen is soft and nontender Urological: Neurological: Awake and alert. No focal deficits. Follows commands. Psychiatric: Cooperative. Medical Decision Making Patient presents with incarcerated ventral hernia. He is medicated with Dilaudid and bedside reduction was attempted. Unfortunately this was unsuccessful. We did consult with surgery who recommended repeat imaging. Case discussed with oncoming physician for follow-up and disposition. Assessment/Plan 1. Ventral hernia (K43.9: Ventral hernia without obstruction or gangrene) Orders: HYDROmorphone, 1 mg = 1 mL, Injection, IV Push, Once, Stop date 03/14/24 17:51:00 EDT, STAT, Start date 03/14/24 17:51:00 EDT, 03/14/24 17:51:00 EDT ondansetron, 4 mg = 2 mL, Injection, IV Push, Once, Stop date 03/14/24 17:51:00 EDT, STAT, Start date 03/14/24 17:51:00 EDT, 03/14/24 17:51:00 EDT Sodium Chloride 0.9% intravenous solution, 1,000 mL, Soln-IV, IV, Once, Stop date 03/14/24 18:10:00 EDT, STAT, Start date 03/14/24 18:10:00 EDT, Infuse over 61, minute(s) Basic Metabolic Panel CBC w/ Auto Diff CT Abdomen/Pelvis w/ Contrast Hepatic Function Panel Lactic Acid Lipase Level PT & PTT Disposition Plan Discharge Prescription List Prescriptions No active prescription medications Follow-up No qualifying data available Problem List/Past Medical History Ongoing Abdominal hernia Anxiety Left groin mass Morbid obesity Recurrent scrotal infection Scrotal abscess Smoker Type II diabetes mellitus Historical No qualifying data Procedure/Surgical History Drainage of scrotal abscess (03/21/2016), Tonsillectomy. Medications Inpatient Dilaudid 1 mg/mL injectable solution, 1 mg= 1 mL, IV Push, Once Zofran 4 mg/2 mL Injection, 4 mg= 2 mL, IV Push, Once Home atorvastatin 20 mg Tab, Daily busPIRone 5 mg Tab, Oral, BID glimepiride 4 mg Tab, Oral, Daily losartan 25 mg Tab, Oral, Daily metformin 1000 mg oral tablet, extended release, Oral, Daily minocycline 100 mg Cap, Oral, q12hr Mounjaro 5 mg/0.5 mL subcutaneous solution oxybutynin 5 mg ER Tab, Daily venlafaxine 75 mg Cap-ER, Oral, Daily Allergies No Known Medication Allergies Social History Alcohol Substance Abuse - High Risk, 03/04/2024 Current, Marijuana, Daily, 08/14/2023 Marijuana, 08/13/2023 Current, 08/13/2023 Marijuana, 08/13/2023 Tobacco Former smoker, quit more than 30 days ago Tobacco Use:., 08/14/2023 Former smoker, quit more than 30 days ago Tobacco Use:. Cigarettes, 2 per day. Yes, 11/05/2022 Family History Family history is negative Lab Results No qualifying data available. Diagnostic Results No qualifying data available. Normal [facility] Comment on above: Result Comment: Elec tronically Signed By: Baljit Moyer PA-C\.br\Date and Time Signed: 03/15/24 08:03 EDT\.br\Electronically Co-Signed By: Demarco Ferreira DO\.br\Date and Time Co-Signed: 03/16/24 07:04 EDT [id number] 03-16-2024 HbA1c (Bld) [Mass fraction] 9.4 % High <=5.9 [facility] Comment on above: Performed By: #### 7 [id number] #### [facility] [address] [place] [address] Inpatient Clinical Summaryon 03-16-2024 Inpatient Clinical Summary Inpatient Clinical Summary [address] [address] Clinical Summary Person Information: Name: CHRISTIAN SHELBY Age: 48 Years : 1975 Sex: Male PCP: JOAN OROSCO CNP Marital Status: Phone: [phone] Race: White Ethnicity: Non- or Language: Serbian Visit Id: Visit Reason: Hernia; Abdominal pain; HERNIA IN LOWER STOMACH AREA Speciality: Acuity: Enc Type: Inpatient Med Service: Medical Arrival: 03/14/2024 17:37:38 Discharge: Dispo Type: Admitted as IP to this Hosp Address: [facility] [place] [id number] Provider Notes: Diagnosis: 1:Ventral hernia Problems Active Scrotal abscess Left groin mass Abdominal hernia Recurrent scrotal infection Anxiety Smoker Morbid obesity Type II diabetes mellitus Smoking Status: Former Smoker Functional Status: Sensory Deficits: History of Falls: Mobility Assistance Prior to Admission: ADLs: Minimal assistance Current Level of Assistance for Self-Care/Mobility: Cognitive Status: Oriented x 3 Allergies No Known Medication Allergies Measurements: Height: 185.42 cm Weight: 181.4 kg Blood Pressure: 148 mmHg / 80 mmHg BMI: 52.88 kg/m2 Procedures No Procedures Documented Immunizations No Immunizations Documented This Visit Final Med List: atorvastatin (atorvastatin 20 mg Tab) every day. busPIRone (busPIRone 5 mg Tab) By Mouth 2 times a day. glimepiride (glimepiride 4 mg Tab) By Mouth every day. losartan (losartan 25 mg Tab) By Mouth every day. metformin (metformin 1000 mg oral tablet, extended release) By Mouth every day. minocycline (minocycline 100 mg Cap) By Mouth every 12 hours. oxybutynin (oxybutynin 5 mg ER Tab) every day. tirzepatide (Mounjaro 5 mg/0.5 mL subcutaneous solution) venlafaxine (venlafaxine 75 mg Cap-ER) By Mouth every day. Care Team Members: Attending Physician: Jason West MD Consulting Physician: Referring Physician: Follow up: Patient Education Information: Normal [facility] Inpatient Patient Summaryon 03-16-2024 Inpatient Patient Summary Inpatient Patient Summary [place] [address] Patient Discharge Instructions PERSON INFORMATION Name: CHRISTIAN SHELBY Date of : 1975 Current Date: 03/16/2024 15:09:18 PHYSICIANS Admitting Physician: Jason West MD Primary Care Physician: JOAN OROSCO CNP PCP Phone Number: [phone] Comment: Discharge Diagnosis: 1:Ventral hernia Condition at Discharge: CHRISTIAN SHELBY has been given the following list of follow-up instructions, prescriptions, and patient education materials: PATIENT FOLLOW-UP INFORMATION Diet: Discharge Activity: Discharge Restrictions: Wound Care Instructions: Remove Your Dressing In Days Call Your Doctor For: IF UNABLE TO CONTACT YOUR PHYSICIAN AND YOU FEEL IT IS AN EMERGENCY, GO TO THE NEAREST EMERGENCY ROOM OR CALL 911 Home Treatment: Devices/Equipment: None Special Services: Additional Instructions: Primary Care Physician to provide the following pending test results: Follow up: In the event that this physician does not participate in your insurance network, please consult with your insurance company to find a nearby participating provider. Comment: IHERON DUANE G, have received the attached patient education materials/instructions and have verbalized understanding: Patient Signature Date Clinican/Nurse Signature Date HERE ARE THE MEDICATION CHANGES THAT OCCURRED DURING YOUR HOSPITAL STAY Medications to Continue with No Changes Other Medications atorvastatin (atorvastatin 20 mg Tab) every day. Last Dose: Nex t Dose: busPIRone (busPIRone 5 mg Tab) By Mouth 2 times a day. Last Dose: Nex t Dose: glimepiride (glimepiride 4 mg Tab) By Mouth every day. Last Dose: Nex t Dose: losartan (losartan 25 mg Tab) By Mouth every day. Last Dose: Nex t Dose: metformin (metformin 1000 mg oral tablet, extended release) By Mouth every day. Last Dose: Nex t Dose: minocycline (minocycline 100 mg Cap) By Mouth every 12 hours. Last Dose: Nex t Dose: oxybutynin (oxybutynin 5 mg ER Tab) every day. Last Dose: Nex t Dose: tirzepatide (Mounjaro 5 mg/0.5 mL subcutaneous solution) Last Dose: Nex t Dose: venlafaxine (venlafaxine 75 mg Cap-ER) By Mouth every day. Last Dose: Nex t Dose: Comment: MEDICATION LIST PROVIDED FOR YOU IS A LIST OF YOUR CURRENT MEDICATIONS. PLEASE CARRY THIS WITH YOU AT ALL TIMES. atorvastatin (atorvastatin 20 mg Tab) every day. busPIRone (busPIRone 5 mg Tab) By Mouth 2 times a day. glimepiride (glimepiride 4 mg Tab) By Mouth every day. losartan (losartan 25 mg Tab) By Mouth every day. metformin (metformin 1000 mg oral tablet, extended release) By Mouth every day. minocycline (minocycline 100 mg Cap) By Mouth every 12 hours. oxybutynin (oxybutynin 5 mg ER Tab) every day. tirzepatide (Mounjaro 5 mg/0.5 mL subcutaneous solution) venlafaxine (venlafaxine 75 mg Cap-ER) By Mouth every day. Pharmacy Information: Comment: PATIENT EDUCATION INFORMATION Instructions: Medication Leaflets: You may receive a survey from [employer] asking you to rate your care experience. Your feedback is important and will help us understand what we do well and how we can improve the quality of care we provide to you, your loved ones and our community. It?s an honor to serve you. Thank you for choosing [facility] Normal [facility] Interdisciplinary Note - Alexander e Manageron 03-16-2024 Interdisciplinary Note - Residential Insurance Inspector Interdisciplinary Note - Residential Insurance Inspector CRM to room to discuss DC planning. Patient is awake, alert and oriented. Patient is from home with his spouse. She will transport at DC. Patient verified PCP, DME and insurance. Patient is here as inpatient, medicare form signed. Patient is here with abdomen pain. Patient had on 03/14 Expl Lap lysis of adhesions, resection of hernia sac and ventral hernia repair. Patient is assigned to Trauma Team, see notes. Patient diet is still NPO, he has oxygen on and does not wear at home. Patient does not anticipate DC needs but will await progress. PT/OT pending. CRM provided contact info and white board updated. CRM following DC date TBD Per Trauma looking at possible DC Saturday if he progresses well Normal [facility] Comment on above: Result Comment: Elec tronically Signed By: Bhavna Mcnair\.br\Date and Time Signed: 03/16/24 12:26 EDT Interdisciplinary Note - Residential Insurance Inspector Interdisciplinary Note - Residential Insurance Inspector CRM to room to discuss DC planning. Patient is awake, alert and oriented. Patient is from home with his spouse. She will transport at DC. Patient verified PCP, DME and insurance. Patient is here as inpatient, medicare form signed. Patient is here with abdomen pain. Patient had on 03/14 Expl Lap lysis of adhesions, resection of hernia sac and ventral hernia repair. Patient is assigned to Trauma Team, see notes. Patient diet is still NPO, he has oxygen on and does not wear at home. Patient does not anticipate DC needs but will await progress. PT/OT pending. CRM provided contact info and white board updated. CRM following DC date TBD Normal [facility] Comment on above: Result Comment: Elec tronically Signed By: Bhavna Mcnair\.br\Date and Time Signed: 03/16/24 08:32 EDT Magnesiumon 03-16-2024 Magnesium [Mass/Vol] 1.8 mg/dL Normal 1.3-2.4 [facility] Comment on above: Performed By: #### 2 [id number] #### [facility] [address] [place] [address] Phosphoruson 03-16-2024 Phosphate [Mass/Vol] 3.7 mg/dL Normal 1.9-4.6 [facility] Comment on above: Performed By: #### 2 [id number] #### [facility] [address] [place] [address] eGFRon 03-16-2024 eGFR 109 mL/min/1.73 m2 Normal >=59 [facility] Comment on above: Order Comment: Order added by Discern Expert. Performed By: #### 1 [id number] #### [facility] [address] [place] [address] ABO/Rhon 03-15-2024 ABO/Rh Positive Invalid Interpretation Code [facility] Comment on above: Performed By: #### 2 [id number] #### [facility] [address] [place] [address] ABO/Rh History Checkon 03-15 ABO/Rh History Check Type verified by second s Normal [facility] Comment on above: Performed By: #### 1 [id number] #### [facility] [address] [place] [address] ABO/Rh Retypeon 03-15-2024 ABO/Rh Retype Interp Positive Invalid Interpretation Code [facility] Comment on above: Performed By: #### 1 [id number] #### [facility] [address] [place] [address] ABSCon 03-15-2024 ABSC Gel Interp Negative Normal [facility] Comment on above: Performed By: #### 1 [id number] #### [facility] [address] [place] [address] BLOOD BANKOrdered By: Tabatha Ren on 03-15-2024 ABO/Rh Interp Positive Invalid Interpretation Code [facility] [place] Subsection ABSC Gel Interp Negative (03/15/24 6:28 AM) Normal [facility] BB Subsection BMPon 03-15-2024 Anion gap [Moles/Vol] 14 mmol/L Normal 6-16 [facility] Comment on above: Performed By: #### 2 [id number] #### [facility] [address] [place] [address] Calcium [Mass/Vol] 8.3 mg/dL Low 8.9-11.1 [facility] Comment on above: Performed By: #### 2 [id number] #### [facility] [address] [place] [address] Chloride [Moles/Vol] 103 mmol/L Normal 101-111 [facility] Comment on above: Performed By: #### 2 [id number] #### [facility] [address] [place] [address] CO2 [Moles/Vol] 22 mmol/L Normal 21-31 [facility] Comment on above: Performed By: #### 2 [id number] #### [facility] [address] [place] [address] Creatinine [Mass/Vol] 0.6 mg/dL Normal 0.5-1.3 [facility] Comment on above: Performed By: #### 2 [id number] #### [facility] [address] [place] [address] Glucose [Mass/Vol] 215 mg/dL High 55-199 [facility] Comment on above: Performed By: #### 2 [id number] #### [facility] [address] [place] [address] Potassium [Moles/Vol] 4.0 mmol/L Normal 3.5-5.3 [facility] Comment on above: Performed By: #### 2 [id number] #### [facility] [address] [place] [address] Sodium [Moles/Vol] 135 mmol/L Normal 135-145 [facility] Comment on above: Performed By: #### 2 [id number] #### [facility] [address] [place] [address] Urea nitrogen [Mass/Vol] 12 mg/dL Normal 5-21 [facility] Comment on above: Performed By: #### 2 [id number] #### [facility] [address] [place] [address] Urea nitrogen/Creatinine [Mass ratio] 20 No Units Normal 10-20 [facility] Comment on above: Performed By: #### 2 [id number] #### [facility] [address] [place] [address] Blood Bank ID#on 03-15-2024 BBID# [id number] Invalid Interpretation Code [facility] Comment on above: Performed By: #### 1 [id number] #### [facility] [address] [place] [address] CBC w/ Auto Diffon 4 Basophils/100 WBC (Bld) 0.2 % Normal 0.0-2.0 [facility] Comment on above: Performed By: #### 2 [id number] #### [facility] [address] [place] [address] Basophils/Leukocytes Auto (Bld) [Pure # fraction] 0.0 E9/L Normal 0.0-0.2 [facility] Comment on above: Performed By: #### 2 [id number] #### [facility] [address] [place] [address] Eosinophils (Bld) [#/Vol] 0.0 E9/L Normal 0.0-0.5 [facility] Comment on above: Performed By: #### 2 [id number] #### [facility] [address] [place] [address] Eosinophils/100 WBC (Bld) 0.2 % Normal 0.0-8.0 [facility] Comment on above: Performed By: #### 2 [id number] #### [facility] [address] [place] [address] Erythrocyte distribution width (RBC) [Ratio] 16.1 % High 10.9-14.2 [facility] Comment on above: Performed By: #### 2 [id number] #### [facility] [address] [place] [address] Hematocrit (Bld) [Volume fraction] 41.8 % Normal 37.7-49.0 [facility] Comment on above: Performed By: #### 2 [id number] #### [facility] [address] [place] [address] Hemoglobin (Bld) [Mass/Vol] 14.0 g/dL Normal 13.5-17.5 [facility] Comment on above: Performed By: #### 2 [id number] #### [facility] [address] [place] [address] Lymphocytes (Bld) [#/Vol] 1.5 E9/L Normal 1.0-4.0 [facility] Comment on above: Performed By: #### 2 [id number] #### [facility] [address] [place] [address] Lymphocytes/100 WBC (Bld) 12.2 % Low 14.0-50.0 [facility] Comment on above: Performed By: #### 2 [id number] #### [facility] [address] [place] [address] MCH (RBC) [Entitic mass] 27.9 pg Normal 27.0-34.0 [facility] Comment on above: Performed By: #### 2 [id number] #### [facility] [address] [place] [address] MCHC (RBC) [Mass/Vol] 33.5 g/dL Normal 31.4-36.0 [facility] Comment on above: Performed By: #### 2 [id number] #### [facility] [address] [place] [address] MCV (RBC) [Entitic vol] 83.2 fL Normal 80.0-100.0 [facility] Comment on above: Performed By: #### 2 [id number] #### [facility] [address] [place] [address] Monocytes (Bld) [#/Vol] 0.8 E9/L Normal 0.2-1.0 [facility] Comment on above: Performed By: #### 2 [id number] #### [facility] [address] [place] [address] Neutrophils (Bld) [#/Vol] 10.3 E9/L High 2.0-7.5 [facility] Comment on above: Performed By: #### 2 [id number] #### [facility] [address] [place] [address] Neutrophils/100 WBC (Bld) 81.2 % High 36.0-75.0 [facility] Comment on above: Performed By: #### 2 [id number] #### [facility] [address] [place] [address] Platelet 312.0 E9/L Normal 150.0-500. 0 [facility] Comment on above: Performed By: #### 2 [id number] #### [facility] [address] [place] [address] Platelet mean volume (Bld) [Entitic vol] 7.0 fL Normal 6.4-10.8 [facility] Comment on above: Performed By: #### 2 [id number] #### [facility] [address] [place] [address] RBC (Bld) [#/Vol] 5.0 E12/L Normal 4.3-5.9 [facility] Comment on above: Performed By: #### 2 [id number] #### [facility] [address] [place] [address] WBC corrected for nucl RBC Auto (Bld) [#/Vol] 12.7 E9/L High 4.0-11.0 [facility] Comment on above: Performed By: #### 2 [id number] #### [facility] [address] [place] [address] CHEMISTRYOrdered By: Sara perez on 03-15-2024 HbA1c (Bld) [Mass fraction] 9.4 % High <=5.9% [facility] ChemAutoSS CHEMISTRYOrdered By: SYSTEM SYSTEM on 03-15-2024 Lactic Acid Lvl 0.8 mmol/L Normal 0.5 - 2.2 mmol/L Remisol Chem Capillary Glucose POCon Glucose [Mass/Vol] 254 mg/dL High 55-99 [facility] Comment on above: Result Comment: Isabelle MARES Performed By: #### 2 [id number] #### [facility] [address] [place] [address] Glucose [Mass/Vol] 243 mg/dL High 55- [facility] Comment on above: Result Comment: Isabelle MARES Performed By: #### 2 [id number] #### [facility] [address] [place] [address] Glucose [Mass/Vol] 261 mg/dL High - [facility] Comment on above: Performed By: #### 2 [id number] #### [facility] [address] [place] [address] Glucose [Mass/Vol] 218 mg/dL High 55-99 [facility] Comment on above: Result Comment: Isabelle MARES Performed By: #### 2 [id number] #### [facility] [address] [place] [address] Lactic Acidon 03-15-2024 Lactic Acid Lvl 0.8 mmol/L Normal 0.5-2.2 [facility] Comment on above: Performed By: #### 2 [id number] #### [facility] [address] [place] [address] Magnesiumon 03-15-2024 Magnesium [Mass/Vol] 1.8 mg/dL Normal 1.3-2.4 [facility] Comment on above: Performed By: #### 2 [id number] #### [facility] [address] [place] [address] Main OR Intraoperative Recor edouard 03-15-2024 Main OR Intraoperative Record Main OR Intraoperative Record IntraOp Document Type FT Summary Primary Physician: Jason West MD Finalized Date/Time: 03/15/24 14:06:28 Pt. Name: CHRISTIAN SHELBY D.O.B./Sex: 1975 Male Med Rec #: [id number] Physician: Salvatore WOOTEN DO Financial #: [id number] Pt. Type: I Room/Bed: [place] [address] Admit/Disch: 03/14/24 17:37:38 - Institution: Case Times FT Entry 1 Patient Times In Room 03/15/24 09:58:00 Out Room 03/15/24 13:44:00 Procedure Times Start 03/15/24 10:33:00 Stop 03/15/24 13:36:00 Anesthesia Times Start 03/15/24 09:58:00 Stop 03/15/24 13:44:00 Last Modified By: Petra WILHELM, Rosaura Peter 03/15/24 14:04:21 Case Attendance FT Entry 1 Entry 2 Entry 3 Case Attendee Ambrosio Layne Jr, DO, MD, Jason Lambert RN, Rosaura Peter Role Performed Anesthesiologist of Surgeon - Primary Distribution Sales Manager - Primary Record Time In 03/15/24 09:58:00 03/15/24 09:58:00 03/15/24 09:58:00 Time Out 03/15/24 13:44:00 03/15/24 13:44:00 03/15/24 13:44:00 Procedure LAPAROTOMY EXPLORATORY LAPAROTOMY EXPLORATORY LAPAROTOMY EXPLORATORY Comments Last Modified By: Petra WILHELM, Rosaura Lambert RN, Rosaura Lambert RN, Rosaura Peter 03/15/24 Cynthia P 03/15/24 Cynthia P 03/15/24 14:04:22 14:04:22 14:04:22 Entry 4 Entry 5 Entry 6 Case Attendee Abhinav Bailey Madison A Hargrove, Bryce Role Performed BULL GANG SUPERVISOR Scrub - Primary Exhibit Specialist Time In 03/15/24 09:58:00 03/15/24 09:58:00 03/15/24 09:58:00 Time Out 03/15/24 13:44:00 03/15/24 13:44:00 03/15/24 11:46:00 Procedure LAPAROTOMY EXPLORATORY LAPAROTOMY EXPLORATORY LAPAROTOMY EXPLORATORY Comments Last Modified By: Petra WILHELM, Rosaura Lambert RN, Rosaura Lambert RN, Rosaura Peter 03/15/24 Cynthia Peter 03/15/24 Cynthia Peter 03/15/24 14:04:22 14:04:22 14:04:22 Perioperative Protocols FT Pre-Care Text: Implements protective measures prior to operative or invasive procedure, confirms identity before the operative or invasive procedure, verifies operative procedure, surgical site, and laterality Entry 1 Procedure(s) LAPAROTOMY EXPLORATORY Patient Identity Birthday, Blood Band, Verified (select at ID Band Check, Patient least 2): Participation Consents / H and P HandP, Surgery/Procedure Operative Site N/A Verified Consent, Transfusion Marking Verified Consent Surgical Site Yes Laterality Verified n/a Verified Procedure Verified Yes Correct Patient Yes Position Verified Availability Equipment, Medication Prep Dry Yes Verified (If Applicable) PreOp Antibiotic Yes Time Out Jason West MD, Marsh Given Participants Ambrosio Sharpe DO, Ferrer RN, Leo Trejo Alejandro, Chap[place], Madison A Time Out Complete 03/15/24 10:30:00 Outcomes Met? Yes Last Modified By: Petra WILHELM, Rosaura Peter 03/15/24 10:31:37 Post-Care Text: The patient is free from signs and symptoms of injury caused by extraneous objects Allergy Information FT Pre-Care Text: Verifies allergies Entry 1 Allergies Reviewed? Yes Allergies Reviewed Self/Patient With Outcomes Met? Yes Last Modified By: Petra WILHELM, Rosaura Peter 03/15/24 10:31:43 Post-Care Text: The patient received appropriate medication(s) safely administered during the perioperative period Surgical Procedures FT Entry 1 Procedure Description Procedure LAPAROTOMY EXPLORATORY Surgeon Description EXPLORATORY LAPAROTOMY, LYSIS OF ADHESIONS, VENTRAL HERNIA REPAIR, INTRAOPERATIVE TAP BLOCK Primary Procedure Yes Primary Surgeon Jason West MD Start 03/15/24 10:33:00 Stop 03/15/24 13:36:00 Anesthesia Type General Surgical Service General Wound Class 1 - Clean Last Modified By: Rosaura Lambert RN 03/15/24 13:36:47 General Case Data FT Pre-Care Text: Classifies surgical wound, implements aseptic technique, initiates traffic control Entry 1 Case Information OR OR 2 FT Case Level Level 4 Wound Class 1 - Clean Specialty General ASA Class 4E Preop Diagnosis Incarcerated ventral Postop Same As Preop No hernia Postop Diagnosis Ventral wall hernia Outcomes Met? Yes Last Modified By: Rosaura Lambert RN 03/15/24 13:22:20 Post-Care Text: The patient is free from signs and symptoms of infection Skin Assessment (Pre Procedure) FT Pre-Care Text: Implements protective measures to prevent skin/ tissue injury due to thermal or mechanical sources Evaluates for signs and symptoms of physical injury to skin and tissue Entry 1 Skin Integrity Red, Intact, Warm, Dry, Skin Abnormality Yes Other/See Comments Abnormality Location redness on bellybutton Outcomes Met? Yes area, bulging hernia on left lower quadrant of abdomen Last Modified By: Rosaura Lambert RN 03/15/24 10:49:54 Post-Care Text: The patient is free from signs and symptoms of injury caused by extraneous objects Patient Positioning FT Pre-Care Text: Identifies physical alterations that require additional precautions (more content not included)... Normal [facility] Main OR PACU I Recordon Main OR PACU I Record Main OR PACU I Record PACU Phase I Document Type FT Summary Primary Physician: Jason West MD Finalized Date/Time: 03/15/24 15:10:31 Pt. Name: CHRISTIAN SHELBY D.O.B./Sex: 1975 Male Med Rec #: [id number] Physician: Salvatore WOOTEN DO Financial #: [id number] Pt. Type: I Room/Bed: Admit/Disch: 03/14/24 17:37:38 - Institution: Case Times PACU I FT Pre-Care Text: Identifies barriers to communication and implements measures to provide psychological support Develops individualized plan of care, and ensures continuity of care Maintains patient's dignity and privacy, and maintains patient confidentiality Identifies and reports philosophical, cultural, and spiritual beliefs and values Identifies individual values and wishes concerning care Implements aseptic technique, and administers prescribed antibiotic therapy and immunizing agents as ordered Evaluates postoperative tissue perfusion Implements thermoregulation measures, and monitors body temperature Evaluates postoperative respiratory status Evaluates postoperative cardiac status Evaluates postoperative neurological status Assesses pain control, collaborated in initiating patient-controlled analgesia and implements alternative methods of pain control Verifies allergies, administers prescribed medications and solutions, evaluates response to medications Entry 1 In PACU I 03/15/24 13:47:00 Discharge from PACU 03/15/24 14:20:00 I Outcomes Met? Yes Last Modified By: Zulma Cabezas RN 03/15/24 15:09:52 Post-Care Text: The patient demonstrates knowledge of the expected response to the operative or invasive procedure The patient's care is consistent with the individualized perioperative plan of care The patient's right to privacy is maintained The patient's value system, lifestyle, ethnicity, and culture are considered, respected, and incorporated into the perioperative plan of care The patient participates in decisions affecting his or her perioperative plan of care The patient is free from signs and symptoms of infection The patient has wound/tissue perfusion consistent with or improved from baseline levels established preoperatively The patient is at or returning to normothermia at the conclusion of the immediate postoperative period The patient's respiratory function is consistent with or improved from baseline levels established preoperatively The patient's cardiovascular status is consistent with or improved from baseline levels established preoperatively The patient's cardiovascular status is consistent with or improved from baseline levels established preoperatively The patient demonstrates and/or reports adequate pain control throughout the perioperative period The patient received appropriate medication(s), safely administered during the perioperative period Acuity Level PACU I FT Entry 1 Start Time 03/15/24 13:47:00 Stop Time 03/15/24 14:20:00 Acuity Level Acuity Level I Last Modified By: Zulma Cabezas RN 03/15/24 15:10:21 Finalized By: Zulma Cabezas RN Document Signatures Signed By: Zulma Cabezas RN 03/15/24 15:10 [facility] Main OR Preoperative Recordo n 03-15-2024 Main OR Preoperative Record Main OR Preoperative Record Holding Area Document Type FT Summary Primary Physician: Jason West MD Finalized Date/Time: 03/15/24 10:43:16 Pt. Name: CHRISTIAN SHELBY Jayde /Sex: 1975 Male Med Rec #: [id number] Physician: Salvatore WOOTEN DO Financial #: [id number] Pt. Type: I Room/Bed: [place] [address] Admit/Disch: 03/14/24 17:37:38 - Institution: Case Times Holding FT Pre-Care Text: Verifies consent for planned procedure, identifies individual values and wishes concerning care, includes family members in perioperative teaching Secures patient's records' belongings, and valuables, maintains patient's dignity and privacy, and maintains patient confidentiality Entry 1 In Holding 03/15/24 09:45:00 Outcomes Met? Yes Last Modified By: Rosaura Lambert RN 03/15/24 10:42:34 Post-Care Text: The patient participates in decisions affecting his or her perioperative plan of care The patient's right to privacy is maintained Surgery Checklist FT Entry 1 Patient Birthday, Blood Band, Procedure Blood Consent, History Identification: ID Band Check, Patient Verification: and Physical, With Participation Patient NPO after Midnight: Yes Date/Time: 03/15/24 09:45:00 Preop Results EKG Complaints of Pain: No Reviewed: Operative Site n/a Availability Equipment Marking: Verified: Does Patient Smoke Yes Patient states Yes Comment - Adult INPATIENT postop adult Supervision supervision available Case Cancelled in No Holding Area see comments below for reason Last Modified By: Rosaura Lambert RN 03/15/24 10:43:12 Finalized By: Rosaura Lambert RN Document Signatures Signed By: Rosaura Lambert RN 03/15/24 10:43 Normal [facility] Operative Reporton 4 Operative Report Operative Report [facility] [place] Operative Report Date of Service: 03/15/24 Preop Diagnosis: Incarcerated ventral hernia Postop Diagnosis: Same Procedure: Exploratory laparotomy, lysis of adhesions, resection of hernia sac, primary repair of ventral hernia, bilateral TAP blocks Surgeon:Jason West MD Systems Security Analyst: Abhinav Bailey RNFA Anesthesia: General endotracheal EBL: 100 mL Wound Class: Clean contaminated Drains: 10 Fr flat GHULAM drain placed in the midline subcutaneous space Complications: None Specimens: Hernia sac Intraoperative Findings: Chronically incarcerated hernia with small bowel, terminal ileum, cecum, and appendix within the hernia, hemorrhagic staining of the mesentery and small bowel but no concern for bowel compromise Indications: CHRISTIAN SHELBY is a 48 Years Male who presented to the ED with complaints of abdominal pain. He has a known chronic ventral hernia. His pain initially resolved but worsened overnight. A long discussion was had about the risk of reoccurrence of the hernia in this setting, even after a surgical repair. He is in the process of undergoing evaluation for bariatric surgery and we discussed that the definitive repair would wait until after that time. The patient undersood the risks and benefits of the procedure and was consented for an exploratory laparotomy, primary repair of the hernia, and possible small bowel resection. Operative Note: The patient was brought to the operating room and positioned on the operating table in a supine manner. SCDs were placed on bilateral lower extremities and pre-operative antibiotics were administered. General endotracheal anesthesia was induced. The patient was then prepped and draped in the usual sterile fashion. A time out was performed by the entire operating room team to confirm the correct patient, the correct site, and the correct procedure. On induction of anesthesia, the ventral hernia completely self reduced. The fascial edges of the hernia defect were able to be palpated and a midline incision was made at the superior edge of the defect. Electrocautery was used to dissect down to the level of the normal fascia, which was incised and entry into the peritoneal cavity was achieved. Dissection was carried inferiorly until the hernia sac was encountered. The sac was opened, which revealed murky fluid. The hernia sac contained multiple loops of small bowel, the terminal ileum, appendix, and cecum. The incarcerated small bowel was dilated and mesentery had hemorrhagic staining, but the all of the bowel was viable without evidence of compromise. The small bowel was run retrograde from the cecum until normal appearing and normal caliber bowel was encountered. An attempt was made to palpate the NG tube within the stomach, however, given the patient's body habitus and amount of intraperitoneal fat, this was not able to be done. Intraoperative fluoroscopy was used to confirm positioning of the NG tube within the stomach. The hernia sac was completely dissected free from the fascial edges and skin and sent off for pathology. The abdomen was irrigated with normal saline until the aspirate was clear. Bilateral TAP blocks were performed using a mixture of Exparel and injectable normal saline. The edges of the midline fascia were cleared of surrounding tissue and were able to be brought to midline. The fascia was closed with multiple interrupted figure of eight sutures using #1 PDS. In between the PDS sutures, additional simple sutures of 0-Vicryl were placed. Given the chronicity of the hernia defect, there was excess skin that was removed with the use of electrocautery. The umbilicus was tacked down to the fascia using 3-0 Vicryl. Given that there was a large subcutaneous space between the skin and fascia, a 10 Fr flat GHULAM drain was placed over the fascia and brought out through a separate incision in the left lower quadrant. The skin edges were approximated with skin henrique and a Prevena wound vac was placed over the incision. At the end of the case, all instrument and sponge counts were correct. General anesthesia was withdrawn and the patient was awoken and extubated. The patient was transferred to PACU in good condition. I was present for all parts of the procedure. Jason West MD [facility] Comment on above: Result Comment: Elec tronically Signed By: Jason West MD\.br\Date and Time Signed: 03/15/24 23:52 EDT Operative Report Operative Report [facility] BRIEF OP NOTE Preoperative Diagnosis: Small bowel obstruction Postoperative Diagnosis: Same Procedure: Exploratory laparotomy, lysis of adhesions, resection of hernia sac, primary repair of ventral hernia, bilateral TAP blocks Attending Surgeon: Jason West MD Anesthesia: General, ETT EBL: 100 cc IVF: 1.6 L Wound class: Clean contaminated Specimens: Hernia sac Findings: Chronically incarcerated hernia with small bowel, terminal ileum, cecum, and appendix within the hernia, hemorrhagic staining of the mesentery and small bowel but no concern for bowel compromise Brief Plan: - NPO except medication - NGT - IVF - Continue antibiotics for 24 hours - Discontinue Craft catheter tomorrow - Dilaudid CARDIOLOGY RN for pain control Jason West MD [facility] Comment on above: Result Comment: Elec tronically Signed By: Jason West MD\.br\Date and Time Signed: 03/15/24 14:35 EDT Phosphoruson 03-15-2024 Phosphate [Mass/Vol] 2.6 mg/dL Normal 1.9-4.6 Fish er [facility] Comment on above: Performed By: #### 2 [id number] #### [facility] [address] [place] [address] URINALYSISOrdered By: SYSTEM SYSTEM on 03-15-2024 Bilirubin Ql (U) Negative Normal Negativemg /dL [facility] UA Auto SS Clarity (U) Clear (03/15/24 10:18 AM) Normal Clear [facility] UA Auto SS Color (U) Light-Yellow 1 (03/15/24 10:18 AM) Normal Yellow [facility] UA Auto SS Comment on above: Interpretive Data: M icroscopic readings are only performed on those samples that meet specific criteria set forth by [facility]. Glucose Ql (U) 4+ mg/dL Invalid Interpretation Code Negativemg /dL [facility] UA Auto SS Hemoglobin Auto test strip (U) [Mass/Vol] Negative Normal Negativemg /dL [facility] UA Auto SS Ketones Auto test strip Ql (U) 3+ mg/dL Invalid Interpretation Code Negativemg /dL [facility] UA Auto SS Leukocyte esterase Auto test strip Ql (U) Negative Normal NegativeLe u/uL [facility] UA Auto SS Nitrite Auto test strip Ql (U) Negative Normal Negativemg /dL [facility] UA Auto SS pH (U) 6.0 *NA* (03/15/24 10:18 AM) Invalid Interpretation Code 5.0 - 9.0 [facility] UA Auto SS Protein Ql (U) Trace mg/dL Invalid Interpretation Code Negativemg /dL [facility] UA Auto SS Specific gravity (U) [Rel density] 1.038 *NA* (03/15/24 10:18 AM) Invalid Interpretation Code 1.005 - 1.030 [facility] UA Auto SS Urobilinogen (U) [Mass/Vol] Negative Normal Negativemg /dL [facility] Auto SS URINALYSISOrdered By: Rosaura Lambert on 03-15-2024 UA Spec Desc Craft (03/15/24 10:18 AM) Normal [facility] UA Auto SS Urinalysis with Microon - Bilirubin Ql (U) Negative Normal Negative [facility] Comment on above: Performed By: #### 4 [id number] #### [facility] [address] [place] [address] Clarity (U) Clear Normal Clear [facility] Comment on above: Performed By: #### 4 [id number] #### [facility] [address] [place] [address] Color (U) Light-Yellow Normal Yellow [facility] Comment on above: Result Comment: Micr oscopic readings are only performed on those samples that meet specific criteria set forth by [facility]. Performed By: #### 4 [id number] #### [facility] [address] [place] [address] Glucose Ql (U) 4+ mg/dL Abnormal Negative [facility] Comment on above: Performed By: #### 4 [id number] #### [facility] [address] [place] [address] Hemoglobin Auto test strip (U) [Mass/Vol] Negative Normal Negative [facility] Comment on above: Performed By: #### 4 [id number] #### [facility] [address] [place] [address] Ketones Auto test strip Ql (U) 3+ mg/dL Abnormal Negative [facility] Comment on above: Performed By: #### 4 [id number] #### [facility] [address] [place] [address] Leukocyte esterase Auto test strip Ql (U) Negative Normal Negative [facility] Comment on above: Performed By: #### 4 [id number] #### [facility] [address] [place] [address] Nitrite Auto test strip Ql (U) Negative Normal Negative [facility] Comment on above: Performed By: #### 4 [id number] #### [facility] [address] [place] [address] pH (U) 6.0 [pH] Invalid Interpretation Code 5.0-9.0 [facility] Comment on above: Performed By: #### 4 [id number] #### [facility] [address] [place] [address] Protein Ql (U) Trace Abnormal Negative [facility] Comment on above: Performed By: #### 4 [id number] #### [facility] [address] [place] [address] Specific gravity (U) [Rel density] 1.038 Invalid Interpretation Code 1.005-1.03 0 [facility] Comment on above: Performed By: #### 4 [id number] #### [facility] [address] [place] [address] Urobilinogen (U) [Mass/Vol] Negative Normal Negative [facility] Comment on above: Performed By: #### 4 [id number] #### [facility] [address] [place] [address] Type of Urine collection method Craft Normal [facility] Comment on above: Performed By: #### 4 [id number] #### [facility] [address] [place] [address] XR Abdomen 1 Viewon 03-15-20 24 XR Abdomen 1 View Exam Date/Time: 03/15/2024 11:51 EDT Reason for Exam: laparoscopic exploratory sx Report IMPRESSION: INTEROPERATIVE FLUOROSCOPY. EXAM: XR Abdomen 1 View DATE: 03/15/2024 11:50 AM CLINICAL HISTORY: laparoscopic exploratory sx. COMPARISON: CT abdomen and pelvis 03/14/2024. Intraoperative fluoroscopy was provided for Dr. West's fluoroscopic guided NG tube placement. A total of 12.53 Air Kerma (Ka, r) of fluoroscopy was used, with 1 fluoroscopic still saved. No diagnostic images were obtained. An enteric tube tip is noted to the left of midline at the level of the left medial costophrenic sulcus, presumably in expected position. Please see Dr. West's surgical notes for completeness. Ordering Provider: Jason West FINAL REPORT Dictated: 03/15/2024 11:59 am Jeyson Wilson MD Signed (Electronic Signature): 03/15/2024 11:59 am Signed by: Jeyson Wilson MD Transcribed by: SHERIF Technologist: TILA Technical Comments Radiation Dose: Ka,r in mGy = 12.53 DAP = na Normal [facility] eGFRon 03-15-2024 eGFR 119 mL/min/1.73 m2 Normal >=59 [facility] Comment on above: Order Comment: Order added by Discern Expert. Performed By: #### 1 [id number] #### [facility] [address] [place] [address] BLOOD BANKOrdered By: Tabatha Ren on 03-14-2024 ABO/Rh Retype Interp Positive Invalid Interpretation Code [facility] [place] Subsection BMPon 03-14-2024 Anion gap [Moles/Vol] 17 mmol/L High 6-16 [facility] Comment on above: Performed By: #### 2 [id number] #### [facility] [address] [place] [address] Calcium [Mass/Vol] 8.4 mg/dL Low 8.9-11.1 [facility] Comment on above: Performed By: #### 2 [id number] #### [facility] [address] [place] [address] Chloride [Moles/Vol] 104 mmol/L Normal 101-111 [facility] Comment on above: Performed By: #### 2 [id number] #### [facility] [address] [place] [address] CO2 [Moles/Vol] 18 mmol/L Low 21-31 [facility] Comment on above: Performed By: #### 2 [id number] #### [facility] [address] [place] [address] Creatinine [Mass/Vol] 0.6 mg/dL Normal 0.5-1.3 [facility] Comment on above: Performed By: #### 2 [id number] #### [facility] [address] [place] [address] Glucose [Mass/Vol] 232 mg/dL High 55-199 [facility] Comment on above: Performed By: #### 2 [id number] #### [facility] [address] [place] [address] Potassium [Moles/Vol] 4.2 mmol/L Normal 3.5-5.3 [facility] Comment on above: Performed By: #### 2 [id number] #### [facility] [address] [place] [address] Sodium [Moles/Vol] 135 mmol/L Normal 135-145 [facility] Comment on above: Performed By: #### 2 [id number] #### [facility] [address] [place] [address] Urea nitrogen [Mass/Vol] 14 mg/dL Normal 5-21 [facility] Comment on above: Performed By: #### 2 [id number] #### [facility] [address] [place] [address] Urea nitrogen/Creatinine [Mass ratio] 23 No Units High 10-20 [facility] Comment on above: Performed By: #### 2 [id number] #### [facility] [address] [place] [address] CBC w/ Auto Diffon 4 Basophils/100 WBC (Bld) 0.4 % Normal 0.0-2.0 [facility] Comment on above: Performed By: #### 2 [id number] #### [facility] [address] [place] [address] Basophils/Leukocytes Auto (Bld) [Pure # fraction] 0.1 E9/L Normal 0.0-0.2 [facility] Comment on above: Performed By: #### 2 [id number] #### [facility] [address] [place] [address] Eosinophils (Bld) [#/Vol] 0.0 E9/L Normal 0.0-0.5 [facility] Comment on above: Performed By: #### 2 [id number] #### [facility] [address] [place] [address] Eosinophils/100 WBC (Bld) 0.2 % Normal 0.0-8.0 [facility] Comment on above: Performed By: #### 2 [id number] #### [facility] [address] [place] [address] Erythrocyte distribution width (RBC) [Ratio] 15.9 % High 10.9-14.2 [facility] Comment on above: Performed By: #### 2 [id number] #### [facility] [address] [place] [address] Hematocrit (Bld) [Volume fraction] 42.7 % Normal 37.7-49.0 [facility] Comment on above: Performed By: #### 2 [id number] #### [facility] [address] [place] [address] Hemoglobin (Bld) [Mass/Vol] 14.8 g/dL Normal 13.5-17.5 [facility] Comment on above: Performed By: #### 2 [id number] #### [facility] [address] [place] [address] Lymphocytes (Bld) [#/Vol] 1.2 E9/L Normal 1.0-4.0 [facility] Comment on above: Performed By: #### 2 [id number] #### [facility] [address] [place] [address] Lymphocytes/100 WBC (Bld) 8.8 % Low 14.0-50.0 [facility] Comment on above: Performed By: #### 2 [id number] #### [facility] [address] [place] [address] MCH (RBC) [Entitic mass] 29.1 pg Normal 27.0-34.0 [facility] Comment on above: Performed By: #### 2 [id number] #### [facility] [address] [place] [address] MCHC (RBC) [Mass/Vol] 34.6 g/dL Normal 31.4-36.0 [facility] Comment on above: Performed By: #### 2 [id number] #### [facility] [address] [place] [address] MCV (RBC) [Entitic vol] 84.0 fL Normal 80.0-100.0 [facility] Comment on above: Performed By: #### 2 [id number] #### [facility] [address] [place] [address] Monocytes (Bld) [#/Vol] 0.7 E9/L Normal 0.2-1.0 [facility] Comment on above: Performed By: #### 2 [id number] #### [facility] [address] [place] [address] Neutrophils (Bld) [#/Vol] 11.9 E9/L High 2.0-7.5 [facility] Comment on above: Performed By: #### 2 [id number] #### [facility] [address] [place] [address] Neutrophils/100 WBC (Bld) 85.8 % High 36.0-75.0 [facility] Comment on above: Performed By: #### 2 [id number] #### [facility] [address] [place] [address] Platelet 314.0 E9/L Normal 150.0-500. 0 [facility] Comment on above: Performed By: #### 2 [id number] #### [facility] [address] [place] [address] Platelet mean volume (Bld) [Entitic vol] 7.1 fL Normal 6.4-10.8 [facility] Comment on above: Performed By: #### 2 [id number] #### [facility] [address] [place] [address] RBC (Bld) [#/Vol] 5.1 E12/L Normal 4.3-5.9 [facility] Comment on above: Performed By: #### 2 [id number] #### [facility] [address] [place] [address] WBC corrected for nucl RBC Auto (Bld) [#/Vol] 13.9 E9/L High 4.0-11.0 [facility] Comment on above: Performed By: #### 2 [id number] #### [facility] [address] [place] [address] CHEMISTRYOrdered By: SYSTEM SYSTEM on 03-14-2024 Albumin [Mass/Vol] 3.8 g/dL Normal 3.3 - 5.0 gm/dL Remisol Chem Albumin/Globulin [Mass ratio] 1.0 {ratio} Low 1.1 - 2.2 Remisol Chem ALP [Catalytic activity/Vol] 71 [iU]/d Normal 21 - 98 Int._Unit/ L Remisol Chem ALT No additional P-5'-P [Catalytic activity/Vol] 31 [iU]/d Normal 6 - 46 Int._Unit/ L Remisol Chem AST [Catalytic activity/Vol] 19 [iU]/d Normal 5 - 43 Int._Unit/ L Remisol Chem Bilirubin [Mass/Vol] 0.5 mg/dL Normal 0.0 - 1 .1 mg/dL Remisol Chem Bilirubin.direct [Mass/Vol] 0.1 mg/dL Normal 0.0 - 0.4 mg/dL Remisol Chem Bilirubin.indirect [Mass or moles/Vol] 0.4 mg/dL Normal 0.1 - 0.9 mg/dL Remisol Chem Globulin (S) [Mass/Vol] 3.7 g/dL Normal 1.4 - 4.0 gm/dL Remisol Chem Lactic Acid Lvl 1.2 mmol/L Normal 0.5 - 2.2 mmol/L Remisol Chem Lipase [Catalytic activity/Vol] 10 U/L Low 13 - 58 unit/L Remisol Chem Protein [Mass/Vol] 7.5 g/dL Normal 6.0 - 7.8 gm/dL Remisol Chem COAGULATIONOrdered By: Magalis Daniel on 03-14-2024 aPTT Coag (PPP) [Time] 35.3 s Normal 25.1 - 36.5 second(s) [facility] Comment on above: Interpretive Data: P arameter 15 days - 4 weeks 1 - 5 months 6 - 11 months 1 - 5 years 6 - 10 years 11 - 17 years PTT Mean: 35.4 (27.6-45.6) Mean: 33.5 (24.8-40.7) Mean: 32.4 (25.1-40.7) Mean: 31.6 (24.0-39.2) Mean: 31.6 (26.9-38.7) Mean: 31.0 (24.6-38.4) Pediatric Reference ranges were obtained from a study by Toy Duggan et al. prepared from 1437 samples obtained at 7 different centers using the same coagulation reagent and instrumentation as [facility] Currently there are no coagulation studies available worldwide for children to 14 days, and no normal ranges. Heparin therapeutic range (represented by Anti-Factor Xa activity of 0.2 - 0.4 U/mL) corresponds to PTT of 56.6 - 109.0 sec. INR Coag (PPP) [Relative time] 0.91 {INR} Invalid Interpretation Code [facility] Comment on above: Interpretive Data: I NR results are specifically intended to assess patients stabilized on long-term Anticoagulation therapy suggested INR s Less Intensive Anticoagulation 2.0 3.0 Conventional Range 3.0 4.5 PT Coag (PPP) [Time] 10.2 s Normal 9.4 - 1 2.5 second(s) [facility] Comment on above: Interpretive Data: 1 5 days - 4 weeks 1 - 5 months 6 -11 months 1-5 years 6-10 years 11 -17 years Mean: 11.2 (9.5-12.6) Mean: 11.0 (9.7-12.8) Mean: 11.0 (9.8-13.0) Mean: 11.3 (9.9-13.4) Mean: 11.7 (10.0-14.6) Mean: 11.8 (10.0 - 14.1) Pediatric Reference ranges were obtained from a study by Toy Duggan et al. prepared from 1437 samples obtained at 7 different centers using the same coagulation reagent and instrumentation as [facility] Currently there are no coagulation studies available worldwide for children to 14 days, and no normal ranges. CT Abdomen/Pelvis w/ Contras ton 03-14-2024 CT Abdomen/Pelvis w/ Contrast Exam Date/Time: 03/14/2024 19:20 EDT Reason for Exam: ABDOMINAL PAIN, ACUTE, NONLOCALIZED;Other (please specify) Report IMPRESSION: INCREASING MESENTERIC EDEMA WITHIN A LARGE LEFT LOWER QUADRANT FAT AND BOWEL CONTAINING VENTRAL HERNIA FROM 03/04/2024. INCARCERATION SHOULD BE EXCLUDED CLINICALLY. EXAM: CT Abdomen/Pelvis w/ Contrast DATE: 03/14/2024 6:55 PM CLINICAL HISTORY: ABDOMINAL PAIN, ACUTE, NONLOCALIZED. COMPARISON: 03/04/2024. TECHNIQUE: Spiral imaging was obtained of the abdomen and pelvis after the uneventful infusion of approximately 100 mL of Isovue [address] scans at this facility use dose modulation, iterative reconstruction, and/or weight based dosing when appropriate to reduce radiation dose to as low as reasonably achievable. Unless otherwise stated, incidental findings identified in this report do not require routine follow-up imaging. FINDINGS: An approximately 20 cm left lower quadrant ventral hernia with approximately 6 to 7 cm neck is again noted containing fat, distal small bowel, ileocecal junction, cecum and normal-appearing appendix. There is mild to moderate dilatation of the small bowel loops within the hernia sac and increasing mesenteric edema. Incarceration should be excluded clinically. There is mild segmental upstream small bowel dilatation and a small amount of ascites within the hernia sac, otherwise similar to 03/04/2024. There is no abnormal bowel wall thickening, pneumatosis, organized fluid collection, or other significant changes identified elsewhere. The visualized lung bases are clear. A moderately enlarged fatty liver, previously described and chronic findings are again noted. Report Ordering Provider: Baljit Moyer FINAL REPORT Dictated: 03/14/2024 7:30 pm Jeyson Wilson MD Signed (Electronic Signature): 03/14/2024 7:30 pm Signed by: Jeyson Wilson MD Transcribed by: SHERIF Technologist: CINTHIA Technical Comments GFR (mL/min/1/73m2) 119 Contrast: Isovue 300 Contrast amount in ml's: 100 Normal [facility] ED Clinical Summaryon 2023 ED Clinical Summary ED Clinical Summary [address] [address] ED Clinical Summary Person Information Name: CHRISTIAN SHELBY Dee/[facility] Age: 48 Years : 1975 Sex: Male Language: Serbian PCP: JOAN OROSCO CNP Marital Status: Phone: [phone] Visit Id: Visit Reason: Hernia; Abdominal pain; HERNIA IN LOWER STOMACH AREA Speciality: Acuity: 2 Enc Type: Inpatient Med Service: Emergency Arrival: 03/14/2024 17:37:38 Discharge: LOS: 000 05:51 Checkin: 03/14/2024 17:37:38 Checkout: 03/14/2024 23:28:55 Dispo Type: Admitted as IP to this [facility] EVENTS: Event Name Event Status Request Date/Time Start Date/Time Complete Date/Time Arrive Complete 03/14/2024 17:37:38 03/14/2024 17:37:38 03/14/2024 17:37:38 Document Home Meds Request 03/14/2024 17:37:38 Triage Complete 03/14/2024 17:37:38 03/14/2024 17:53:11 03/14/2024 17:53:11 Bed Assign Complete 03/14/2024 17:43:51 03/14/2024 17:43:51 03/14/2024 17:43:51 Dr Exam Complete 03/14/2024 17:43:51 03/14/2024 17:49:26 03/14/2024 17:49:26 RN Exam Complete 03/14/2024 17:43:51 03/14/2024 17:56:29 03/14/2024 17:56:29 Registration Complete 03/14/2024 17:46:06 03/14/2024 17:46:06 03/14/2024 17:46:06 Reg Complete Request 03/14/2024 17:46:06 Reg Bed Request Complete 03/14/2024 17:46:06 03/14/2024 17:46:06 03/14/2024 17:46:06 Registration Complete 03/14/2024 17:49:26 03/14/2024 22:51:14 03/14/2024 22:51:14 Meds Admin Complete 03/14/2024 17:51:50 03/14/2024 18:03:33 Dr Exam Complete 03/14/2024 18:00:22 03/14/2024 18:00:22 03/14/2024 18:00:22 CT Complete 03/14/2024 18:11:01 03/14/2024 18:55:11 03/14/2024 19:21:00 Meds Admin Complete 03/14/2024 18:11:01 03/14/2024 18:24:34 Pending Labs Complete 03/14/2024 18:11:01 03/14/2024 18:50:11 Lab Complete 03/14/2024 18:11:01 03/14/2024 18:50:11 Pending Labs Complete 03/14/2024 18:30:10 03/14/2024 18:30:10 03/14/2024 18:50:05 Lab Complete 03/14/2024 18:30:10 03/14/2024 18:30:10 03/14/2024 18:50:05 Meds Admin Complete 03/14/2024 18:49:03 03/14/2024 18:57:24 Dr Exam Complete 03/14/2024 19:32:52 03/14/2024 19:32:52 03/14/2024 19:32:52 Patient Care Request 03/14/2024 21:29:54 NPO Request 03/14/2024 21:29:54 Meds Admin Request 03/14/2024 21:29:54 Pending Labs Request 03/14/2024 21:29:54 Lab Request 03/14/2024 21:29:54 Bed Request Request 03/14/2024 21:29:54 Reg Bed Request Complete 03/14/2024 21:29:54 03/14/2024 22:51:14 03/14/2024 22:51:14 Admit Request 03/14/2024 21:29:54 Blood Collect Request 03/14/2024 21:29:54 Meds Admin Request 03/14/2024 21:34:52 Meds Admin Request 03/14/2024 21:37:20 Patient Care Request 03/14/2024 22:51:14 Patient Care Request 03/14/2024 22:51:14 Patient Care Request 03/14/2024 22:51:15 Patient Care Request 03/14/2024 22:51:15 Medicare Form Complete 03/14/2024 22:51:15 03/14/2024 23:13:05 Patient Care Request 03/14/2024 22:51:16 Patient Care Request 03/14/2024 22:51:16 ADDRESS: [address] [place] [id number] PHYS DOC NOTES: MEDICAL INFORMATION: Prescriptions Given: Medications to Continue with No Changes Other Medications atorvastatin (atorvastatin 20 mg Tab) every day. busPIRone (busPIRone 5 mg Tab) By Mouth 2 times a day. glimepiride (glimepiride 4 mg Tab) By Mouth every day. losartan (losartan 25 mg Tab) By Mouth every day. metformin (metformin 1000 mg oral tablet, extended release) By Mouth every day. minocycline (minocycline 100 mg Cap) By Mouth every 12 hours. oxybutynin (oxybutynin 5 mg ER Tab) every day. tirzepatide (Mounjaro 5 mg/0.5 mL subcutaneous solution) venlafaxine (venlafaxine 75 mg Cap-ER) By Mouth every day. PATIENT EDUCATION INFORMATION: Instructions: Follow up: DIAGNOSIS: 1:Ventral hernia Normal [facility] ED Note-Physicianon 03-14-20 ED Note-Physician ED Note-Physician Patient is signed me by outgoing physician. At the time of signout he is awaiting CT results. IMPRESSION: INCREASING MESENTERIC EDEMA WITHIN A LARGE LEFT LOWER QUADRANT FAT AND BOWEL CONTAINING VENTRAL HERNIA FROM 03/04/2024. INCARCERATION SHOULD BE EXCLUDED CLINICALLY I called and spoke with Dr. West who agreed to come see the patient here in the ED. After his evaluation of the patient and reviewing patient's chart he agreed to admit the patient to his service for further management. Normal [facility] Comment on above: Result Comment: Elec tronically Signed By: Shaun Caceres DO\.br\Date and Time Signed: 03/14/24 21:22 EDT ED Patient Education Noteon 03-14-2024 ED Patient Education Note ED Patient Education Note Normal [facility] ED Patient Summaryon 024 ED Patient Summary ED Patient Summary [place] [id number] Patient Discharge Instructions Person Information Name: CHRISTIAN SHELBY Age: 48 Years Arrival Date: 03/14/2024 17:37:38 Discharge Diagnosis: 1:Ventral hernia Primary Care Physician: JOAN OROSCO CNP Provider Information Primary Provider: Demarco Ferreira DO Advanced Safety Teacher:Baljit Moyer PA-C The exam and treatment you received in the Emergency Department were for an urgent problem and are not intended as complete care. It is important that you follow up with a doctor, nurse practitioner, or physician?s recreation assistant for ongoing care. If your symptoms become worse or you do not improve as expected and you are unable to reach your usual health care provider, you should return to the Emergency Department. We are available 24 hours a day. CHRISTIAN SHELBY Jayde has been given the following list of patient education materials, prescriptions and follow-up instructions: Follow-up Instructions: In the event that this physician does not participate in your insurance network, please consult with your insurance company to find a nearby participating provider. Patient Education Materials: A MESSAGE TO ALL PATIENTS REGARDING OPIOIDS PRESCRIPTION OPIOIDS: WHAT YOU NEED TO KNOW Prescription opioids can be used to help relieve nagkroru-vx-xhrtco pain and are often prescribed following a surgery or injury, or for certain health conditions. These medications can be an important part of the treatment but also come with serious risks. It is important to work with your healthcare provider to make sure you are getting the safest, most effective care. WHAT ARE THE RISKS AND SIDE EFFECTS OF OPIOID USE? Prescription opioids carry serious risks of addiction and overdose, especially with prolonged use. An opioid overdose, often marked by slowed breathing, can cause sudden . The use of prescription opioids can have a number of side effects as well, even when taken as directed: ? Tolerance?meaning you might need to take more of the medication for the same pain relief ? Physical dependence?meaning you have symptoms of withdrawal when a medication is stopped ? Increased sensitivity to pain ? Constipation ? Nausea, vomiting, and dry mouth ? Sleepiness and dizziness ? Confusion ? Depression ? Low levels of testosterone that can result in lower sex drive, energy, and strength ? Itching and sweating RISKS ARE GREATER WITH: ? History of drug misuse, substance use disorder, or overdose ? Mental health conditions (such as depression or anxiety) ? Sleep apnea ? Older age (65 years and older) ? Avoid alcohol while taking prescription opioids. Also, unless specifically advised by your health care provider, medications to avoid include: ? Benzodiazepines (such as Xanax or Valium) ? Muscle relaxants (such as Soma or Flexeril) ? Hypnotics (such as Ambien or Lunesta) ? Other prescription opioids KNOW YOUR OPTIONS Talk to your health care provider about ways to manage your pain that don?t involve prescription opioids. Some of these options may actually work better and have fewer risks and side effects. Options may include: ? Pain relievers such as acetaminophen, ibuprofen, and naproxen ? Some medication that are also used for depression or seizures ? Physical therapy and exercise ? Cognitive behavioral therapy, a psychological, goal-directed approach, in which patients learn how to modify physical, behavioral, and emotional triggers of pain and stress. IF YOU ARE PRESCRIBED OPIOIDS FOR PAIN: ? Never take opioids in greater amounts or more often than prescribed. ? Follow up with your primary health care provider. o Work together to create a plan on how to manage your pain. o Talk about ways to help manage your pain that don?t involve prescription opioids. o Talk about any and all concerns and side effects. ? Help prevent misuse and abuse o Never sell or share prescription opioids. o Never use another person?s prescription opioids. ? Store prescription opioids in a secure place and out of reach of others (this may include visitors, children, friends, and family). ? Safely dispose of unused prescription opioids: Find your community drug take-back program or your pharmacy mail-back program, or flush them down the toilet, following guidance from the Food and Drug Administration (www.fda.gov/Drugs/Resources ForYou). ? Visit www.cdc.gov/drugoverdose to learn about the risks of opioids abuse and overdose. ? If you believe you may be struggling with addiction, tell your health career consultant and ask for guidance or call [facility]S National Helpline at 7-914-622-IZMT. v Source: [place] Department of Health and Human Services/Center for Disease Control & Prevention [facility] Medications Given: Medicati (more content not included)... Normal [facility] Hep Func Panelon 03-14-2024 Albumin [Mass/Vol] 3.8 g/dL Normal 3.3-5.0 [facility] Comment on above: Performed By: #### 2 [id number] #### [facility] [address] [place] [address] Albumin/Globulin (S) [Mass conc ratio] 1.0 Low 1.1-2.2 [facility] Comment on above: Performed By: #### 2 [id number] #### [facility] [address] [place] [address] ALP [Catalytic activity/Vol] 71 Int._Unit/L Normal 21-98 [facility] Comment on above: Performed By: #### 2 [id number] #### [facility] [address] [place] [address] ALT No additional P-5'-P [Catalytic activity/Vol] 31 Int._Unit/L Normal 6-46 [facility] Comment on above: Performed By: #### 2 [id number] #### [facility] [address] [place] [address] AST [Catalytic activity/Vol] 19 Int._Unit/L Normal 5-43 [facility] Comment on above: Performed By: #### 2 [id number] #### [facility] [address] [place] [address] Bilirubin [Mass/Vol] 0.5 mg/dL Normal 0.0-1.1 [facility] Comment on above: Performed By: #### 2 [id number] #### [facility] [address] [place] [address] Bilirubin.direct [Mass/Vol] 0.1 mg/dL Normal 0.0-0.4 [facility] Comment on above: Performed By: #### 2 [id number] #### [facility] [address] [place] [address] Bilirubin.indirect [Mass or moles/Vol] 0.4 mg/dL Normal 0.1-0.9 [facility] Comment on above: Performed By: #### 2 [id number] #### [facility] [address] [place] [address] Globulin (S) [Mass/Vol] 3.7 g/dL Normal 1.4-4.0 [facility] Comment on above: Performed By: #### 2 [id number] #### [facility] [address] [place] [address] Protein [Mass/Vol] 7.5 g/dL Normal 6.0-7.8 [facility] Comment on above: Performed By: #### 2 [id number] #### [facility] [address] [place] [address] Lactic Acidon 03-14-2024 Lactic Acid Lvl 1.2 mmol/L Normal 0.5-2.2 [facility] Comment on above: Performed By: #### 2 [id number] #### [facility] [address] [place] [address] Lipase Levelon 03-14-2024 Lipase [Catalytic activity/Vol] 10 U/L Low 13-58 [facility] Comment on above: Performed By: #### 2 [id number] #### [facility] [address] [place] [address] PT & PTTon 03-14-2024 aPTT Coag (PPP) [Time] 35.3 second(s) Normal 25.1-36.5 [facility] Comment on above: Result Comment: Para meter 15 days - 4 weeks 1 - 5 months 6 - 11 months 1 - 5 years 6 - 10 years 11 - 17 years PTT Mean: 35.4 (27.6-45.6) Mean: 33.5 (24.8-40.7) Mean: 32.4 (25.1-40.7) Mean: 31.6 (24.0-39.2) Mean: 31.6 (26.9-38.7) Mean: 31.0 (24.6-38.4) Pediatric Reference ranges were obtained from a study by Toy Duggan et al. prepared from 1437 samples obtained at 7 different centers using the same coagulation reagent and instrumentation as [facility]. Currently there are no coagulation studies available worldwide for children to 14 days, and no normal ranges. Heparin therapeutic range (represented by Anti-Factor Xa activity of 0.2 - 0.4 U/mL) corresponds to PTT of 56.6 - 109.0 sec. Performed By: #### 1 [id number] #### [facility] [address] [place] [address] INR Coag (PPP) [Relative time] 0.91 {INR} Invalid Interpretation Code [facility] Comment on above: Result Comment: INR results are specifically intended to assess patients stabilized on long-term Anticoagulation therapy suggested INR?s ?Less Intensive Anticoagulation? 2.0 ? 3.0 Conventional Range 3.0 ? 4.5 Performed By: #### 1 [id number] #### [facility] [address] [place] [address] PT Coag (PPP) [Time] 10.2 second(s) Normal 9.4-12.5 [facility] Comment on above: Result Comment: 15 d ays - 4 weeks 1 - 5 months 6 -11 months 1- 5 years 6-10 years 11 -17 years Mean: 11.2 (9.5-12.6) Mean: 11.0 (9.7-12.8) Mean: 11.0 (9.8-13.0) Mean: 11.3 (9.9-13.4) Mean: 11.7 (10.0-14.6) Mean: 11.8 (10.0 - 14.1) Pediatric Reference ranges were obtained from a study by sandee Yepez al. prepared from 1437 samples obtained at 7 different centers using the same coagulation reagent and instrumentation as [facility]. Currently there are no coagulation studies available worldwide for children to 14 days, and no normal ranges. Performed By: #### 1 [id number] #### [facility] [address] [place] [address] eGFRon 03-14-2024 eGFR 119 mL/min/1.73 m2 Normal >=59 [facility] Comment on above: Order Comment: Order added by Discern Expert. Performed By: #### 1 [id number] #### [facility] [address] [place] [address] BMPon 03-05-2024 Anion gap [Moles/Vol] 12 mmol/L Normal 6-16 [facility] Comment on above: Performed By: #### 2 [id number] #### [facility] [address] [place] [address] Calcium [Mass/Vol] 7.8 mg/dL Low 8.9-11.1 [facility] Comment on above: Performed By: #### 2 [id number] #### [facility] [address] [place] [address] Chloride [Moles/Vol] 105 mmol/L Normal 101-111 [facility] Comment on above: Performed By: #### 2 [id number] #### [facility] [address] [place] [address] CO2 [Moles/Vol] 23 mmol/L Normal 21-31 [facility] Comment on above: Performed By: #### 2 [id number] #### [facility] [address] [place] [address] Creatinine [Mass/Vol] 0.6 mg/dL Normal 0.5-1.3 [facility] Comment on above: Performed By: #### 2 [id number] #### [facility] [address] [place] [address] Glucose [Mass/Vol] 183 mg/dL Normal 55-199 [facility] Comment on above: Performed By: #### 2 [id number] #### [facility] [address] [place] [address] Potassium [Moles/Vol] 3.6 mmol/L Normal 3.5-5.3 [facility] Comment on above: Performed By: #### 2 [id number] #### [facility] [address] [place] [address] Sodium [Moles/Vol] 136 mmol/L Normal 135-145 [facility] Comment on above: Performed By: #### 2 [id number] #### [facility] [address] [place] [address] Urea nitrogen [Mass/Vol] 12 mg/dL Normal 5-21 [facility] Comment on above: Performed By: #### 2 [id number] #### [facility] [address] [place] [address] Urea nitrogen/Creatinine [Mass ratio] 20 No Units Normal 10-20 [facility] Comment on above: Performed By: #### 2 [id number] #### [facility] [address] [place] [address] Bld Gas Venon 03-05-2024 Allens Test Not Applicable Normal [facility] Comment on above: Performed By: #### 1 [id number] #### [facility] [address] [place] [address] Drawn by lab Invalid Interpretation Code [facility] Comment on above: Performed By: #### 1 [id number] #### [facility] [address] [place] [address] Sample Site OTHER Normal [facility] Comment on above: Performed By: #### 1 [id number] #### [facility] [address] [place] [address] CBC w/ Auto Diffon 4 Basophils/100 WBC (Bld) 0.3 % Normal 0.0-2.0 [facility] Comment on above: Performed By: #### 2 [id number] #### [facility] [address] [place] [address] Basophils/Leukocytes Auto (Bld) [Pure # fraction] 0.0 E9/L Normal 0.0-0.2 [facility] Comment on above: Performed By: #### 2 [id number] #### [facility] [address] [place] [address] Eosinophils (Bld) [#/Vol] 0.1 E9/L Normal 0.0-0.5 [facility] Comment on above: Performed By: #### 2 [id number] #### [facility] [address] [place] [address] Eosinophils/100 WBC (Bld) 1.1 % Normal 0.0-8.0 [facility] Comment on above: Performed By: #### 2 [id number] #### [facility] [address] [place] [address] Erythrocyte distribution width (RBC) [Ratio] 16.2 % High 10.9-14.2 [facility] Comment on above: Performed By: #### 2 [id number] #### [facility] [address] [place] [address] Hematocrit (Bld) [Volume fraction] 40.9 % Normal 37.7-49.0 [facility] Comment on above: Performed By: #### 2 [id number] #### [facility] [address] [place] [address] Hemoglobin (Bld) [Mass/Vol] 13.3 g/dL Low 13.5-17.5 [facility] Comment on above: Performed By: #### 2 [id number] #### [facility] [address] [place] [address] Lymphocytes (Bld) [#/Vol] 2.6 E9/L Normal 1.0-4.0 [facility] Comment on above: Performed By: #### 2 [id number] #### [facility] [address] [place] [address] Lymphocytes/100 WBC (Bld) 22.4 % Normal 14.0-50.0 [facility] Comment on above: Performed By: #### 2 [id number] #### [facility] [address] [place] [address] MCH (RBC) [Entitic mass] 27.5 pg Normal 27.0-34.0 [facility] Comment on above: Performed By: #### 2 [id number] #### [facility] [address] [place] [address] MCHC (RBC) [Mass/Vol] 32.5 g/dL Normal 31.4-36.0 [facility] Comment on above: Performed By: #### 2 [id number] #### [facility] [address] [place] [address] MCV (RBC) [Entitic vol] 84.5 fL Normal 80.0-100.0 [facility] Comment on above: Performed By: #### 2 [id number] #### [facility] [address] [place] [address] Monocytes (Bld) [#/Vol] 1.1 E9/L High 0.2-1.0 [facility] Comment on above: Performed By: #### 2 [id number] #### [facility] [address] [place] [address] Neutrophils (Bld) [#/Vol] 7.7 E9/L High 2.0-7.5 [facility] Comment on above: Performed By: #### 2 [id number] #### [facility] [address] [place] [address] Neutrophils/100 WBC (Bld) 66.8 % Normal 36.0-75.0 [facility] Comment on above: Performed By: #### 2 [id number] #### [facility] [address] [place] [address] Platelet mean volume (Bld) [Entitic vol] 7.1 fL Normal 6.4-10.8 [facility] Comment on above: Performed By: #### 2 [id number] #### [facility] [address] [place] [address] Platelets (Bld) [#/Vol] 296.0 E9/L Normal 150.0-500. 0 [facility] Comment on above: Performed By: #### 2 [id number] #### [facility] [address] [place] [address] RBC (Bld) [#/Vol] 4.8 E12/L Normal 4.3-5.9 [facility] Comment on above: Performed By: #### 2 [id number] #### [facility] [address] [place] [address] WBC corrected for nucl RBC Auto (Bld) [#/Vol] 11.5 E9/L High 4.0-11.0 [facility] Comment on above: Performed By: #### 2 [id number] #### [facility] [address] [place] [address] CHEMISTRYOrdered By: SYSTEM SYSTEM on 03-05-2024 Anion gap [Moles/Vol] 12 mmol/L Normal 6 - 16 mEq/L [facility] Calcium [Mass/Vol] 7.8 mg/dL Low 8.9 - 11. 1 mg/dL [facility] Chloride [Moles/Vol] 105 mmol/L Normal 101 - 1 11 mmol/L [facility] CO2 [Moles/Vol] 23 mmol/L Normal 21 - 31 mmol/L [facility] Creatinine [Mass/Vol] 0.6 mg/dL Normal 0.5 - 1.3 mg/dL [facility] eGFR 119 mL/min/1.73 m2 Normal >=59mL/mi n /1.73 m2 [facility] Glucose [Mass/Vol] 183 mg/dL Normal 55 - 199 mg/dL [facility] Magnesium [Mass/Vol] 1.8 mg/dL Normal 1.3 - 2 .4 mg/dL [facility] Potassium [Moles/Vol] 3.6 mmol/L Normal 3.5 - 5.3 mmol/L [facility] Sodium [Moles/Vol] 136 mmol/L Normal 135 - 145 mmol/L [facility] Urea nitrogen [Mass/Vol] 12 mg/dL Normal 5 - 21 mg/dL [facility] Urea nitrogen/Creatinine [Mass ratio] 20 mg/mg Normal 10 - 20 [facility] CHEMISTRYOrdered By: Lab ROP User on 03-05-2024 Glucose [Mass/Vol] 165 mg/dL High 55 - 99 mg/dL [facility] Comment on above: Result Comment: Isabelle adames RN/ POC Device SN [id number] Invalid Interpretation Code [facility] Subsection POC User ID [id number] 1 Invalid Interpretation Code [facility] Subsection POC Username SIR DEMARCO CARR Invalid Interpretation Code [facility] Subsection Capillary Glucose POCon 02-08 Glucose [Mass/Vol] 165 mg/dL High 55-99 [facility] Comment on above: Result Comment: Isabelle MARES Performed By: #### 2 [id number] #### [facility] [address] [place] [address] Discharge Note-Nursingon Discharge Note-Nursing Discharge Note-Nursing Pt provided discharge education. Pt denies any questions at this time. IV removed and pt transferred to patient pickup via wheelchair. Normal [facility] HEMATOLOGYOrdered By: SYSTEM SYSTEM on 03-05-2024 Basophils/100 WBC (Bld) 0.3 % Normal 0.0 - 2.0 % [facility]e Basophils/Leukocytes Auto (Bld) [Pure # fraction] 0.0 E9/L Normal 0.0 - 0.2 E9/L [facility] Eosinophils (Bld) [#/Vol] 0.1 E9/L Normal 0.0 - 0.5 E9/L [facility] Eosinophils/100 WBC (Bld) 1.1 % Normal 0.0 - 8.0 % [facility] Erythrocyte distribution width (RBC) [Ratio] 16.2 % High 10.9 - 14.2 % [facility] Hematocrit (Bld) [Volume fraction] 40.9 % Normal 37.7 - 49.0 % [facility] Hemoglobin (Bld) [Mass/Vol] 13.3 g/dL Low 13.5 - 17.5 gm/dL [facility] Lymphocytes (Bld) [#/Vol] 2.6 E9/L Normal 1.0 - 4.0 E9/L [facility] Lymphocytes/100 WBC (Bld) 22.4 % Normal 14.0 - 50.0 % [facility] MCH (RBC) [Entitic mass] 27.5 pg Normal 27.0 - 34.0 pg [facility] MCHC (RBC) [Mass/Vol] 32.5 g/dL Normal 31.4 - 36.0 gm/dL [facility] MCV (RBC) [Entitic vol] 84.5 fL Normal 80.0 - 100.0 fL [facility] Monocytes (Bld) [#/Vol] 1.1 E9/L High 0.2 - 1.0 E9/L [facility] Monocytes/100 WBC (Bld) 9.4 % Normal 4.0 - 14.0 % [facility] Neutrophils (Bld) [#/Vol] 7.7 E9/L High 2.0 - 7.5 E9/L [facility] Neutrophils/100 WBC (Bld) 66.8 % Normal 36.0 - 75.0 % [facility] Platelet mean volume (Bld) [Entitic vol] 7.1 fL Normal 6.4 - 10.8 fL [facility] Platelets (Bld) [#/Vol] 296.0 E9/L Normal 150.0 - 500.0 E9/L [facility] RBC (Bld) [#/Vol] 4.8 E12/L Normal 4.3 - 5.9 E12/L [facility] WBC corrected for nucl RBC Auto (Bld) [#/Vol] 11.5 E9/L High 4.0 - 11.0 E9/L [facility] Inpatient Clinical Summaryon 03-05-2024 Inpatient Clinical Summary Inpatient Clinical Summary [place] [id number] Clinical Summary Person Information: Name: CHRISTIAN SHELBY Age: 48 Years : 1975 Sex: Male PCP: JOAN OROSCO CNP Marital Status: Phone: [phone] Race: White Ethnicity: Non- or Language: Serbian Visit Id: Visit Reason: Abdominal pain; ABD PAIN Speciality: Acuity: Enc Type: Observation Med Service: Medical Arrival: 03/04/2024 13:47:44 Discharge: Dispo Type: Admitted as IP to this Hosp Address: [address] [place] [phone] Provider Notes: Diagnosis: Small bowel obstruction; Ventral hernia Problems Active Scrotal abscess Left groin mass Abdominal hernia Recurrent scrotal infection Anxiety Smoker Morbid obesity Type II diabetes mellitus Smoking Status: Never Smoker Functional Status: Sensory Deficits: History of Falls: Mobility Assistance Prior to Admission: Independent ADLs: Independent Current Level of Assistance for Self-Care/Mobility: Cognitive Status: Oriented x 3 Allergies No Known Medication Allergies Measurements: Height: 185.42 cm Weight: 182 kg Blood Pressure: 161 mmHg / 86 mmHg BMI: 52.94 kg/m2 Procedures No Procedures Documented Immunizations No Immunizations Documented This Visit Final Med List: atorvastatin (atorvastatin 20 mg Tab) every day. busPIRone (busPIRone 5 mg Tab) By Mouth 2 times a day. glimepiride (glimepiride 4 mg Tab) By Mouth every day. losartan (losartan 25 mg Tab) By Mouth every day. metformin (metformin 1000 mg oral tablet, extended release) By Mouth every day. minocycline (minocycline 100 mg Cap) By Mouth every 12 hours. oxybutynin (oxybutynin 5 mg ER Tab) every day. tirzepatide (Mounjaro 5 mg/0.5 mL subcutaneous solution) venlafaxine (venlafaxine 75 mg Cap-ER) By Mouth every day. Care Team Members: Attending Physician: Esvin Hill MD Consulting Physician: Referring Physician: Follow up: With: Address: When: JOAN OROSCO [address] [place] [phone] Business (1) Within 7 to 10 days Comments: Call for followup appointment Call physician if symptoms worsen With: Address: When: trauma clinic [address] [facility] 3, second floor, [address] [place] [address] , only if needed Comments: Please call to make follow up appointment if you have questions or concerns. Patient Education Information: Hernia, Adult Normal [facility] Inpatient Patient Summaryon 03-05-2024 Inpatient Patient Summary Inpatient Patient Summary CHRISTIAN SHELBY :1975 Visit Date:03/04/2024 Inpatient Discharge Instructions Your Care Team Admitting Physician - Liz MARTINEZ, Esvin Pierre Reason for Your Visit hernia Your Diagnosis Abdominal pain Small bowel obstruction Ventral hernia Tests Performed CT Abdomen/Pelvis w/ Contrast This Is Your Medications List atorvastatin (atorvastatin 20 mg Tab) busPIRone (busPIRone 5 mg Tab) glimepiride (glimepiride 4 mg Tab) losartan (losartan 25 mg Tab) metformin (metformin 1000 mg oral tablet, extended release) minocycline (minocycline 100 mg Cap) oxybutynin (oxybutynin 5 mg ER Tab) tirzepatide (Mounjaro 5 mg/0.5 mL subcutaneous solution) venlafaxine (venlafaxine 75 mg Cap-ER) Procedure History Drainage of scrotal abscess (03/21/2016), Tonsillectomy. Discharge Vitals Temperature (Oral) 36.5 ?C Heart Rate (Monitored) 81 Respiratory Rate 18 Blood Pressure 168/92 Height 185.42 cm Weight 182 kg BMI 52.94 What to do next Instructions From Your Doctor Event Name Event Result Pending Diagnostic Test Results None Discharge Instructions Recommend following with bariatric surgery. New Follow Up Appointments after Discharge Follow Up with JOAN OROSCO When: Within 7 to 10 days Comments: Call for followup appointment Call physician if symptoms worsen Where: [address] [place] [address] [phone] Business (1) Follow Up with trauma clinic When: Only if needed Comments: Please call to make follow up appointment if you have questions or concerns. Where: [address] [facility] 3, second floor, [address] [place] [address] [phone] Medications What How Much When Instructions Next Dose Unchanged atorvastatin (atorvastatin 20 mg Tab) Every day 03/05/2024 1:00pm Unchanged busPIRone (busPIRone 5 mg Tab) 2 times a day 03/05/2024 1:00pm Unchanged glimepiride (glimepiride 4 mg Tab) Every day 03/05/2024 1:00pm Unchanged losartan (losartan 25 mg Tab) Every day 03/05/2024 1:00pm Unchanged metformin (metformin 1000 mg oral tablet, extended release) Every day 03/05/2024 1:00pm Unchanged minocycline (minocycline 100 mg Cap) Every 12 hours 03/05/2024 1:00pm Unchanged oxybutynin (oxybutynin 5 mg ER Tab) Every day 03/05/2024 1:00pm Unchanged tirzepatide (Mounjaro 5 mg/ 0.5 mL subcutaneous solution) Unchanged venlafaxine (venlafaxine 75 mg Cap-ER) Every day 03/05/2024 1:00pm Test Results CBC BMP WBC: 11.5 E9/L High (03/05/24 05:48:00) Glucose Lvl: 183 mg/dL (03/05/24 05:48:00) RBC: 4.8 E12/L (03/05/24 05:48:00) BUN: 12 mg/dL (03/05/24 05:48:00) HGB: 13.3 gm/dL Low (03/05/24 05:48:00) Creatinine: 0.6 mg/dL (03/05/24 05:48:00) Hct: 40.9 % (03/05/24 05:48:00) BUN/Creat Ratio: 20 (03/05/24 05:48:00) MCV: 84.5 fL (03/05/24 05:48:00) Sodium Lvl: 136 mmol/L (03/05/24 05:48:00) MCH: 27.5 pg (03/05/24 05:48:00) Potassium Lvl: 3.6 mmol/L (03/05/24 05:48:00) MCHC: 32.5 gm/dL (03/05/24 05:48:00) Chloride: 105 mmol/L (03/05/24 05:48:00) RDW: 16.2 % High (03/05/24 05:48:00) CO2: 23 mmol/L (03/05/24 05:48:00) Platelet: 296 E9/L (03/05/24 05:48:00) AGAP: 12 mEq/L (03/05/24 05:48:00) MPV: 7.1 fL (03/05/24 05:48:00) Calcium Lvl: 7.8 mg/dL Low (03/05/24 05:48:00) Allergies No Known Medication Allergies Problems Ongoing - Any problem that you are currently receiving treatment for. Abdominal hernia Anxiety Left groin mass Morbid obesity Recurrent scrotal infection Scrotal abscess Smoker Type II diabetes mellitus Education Materials Hernia, Adult A hernia is the bulging of an organ or tissue through a weak spot in the muscles of the abdomen. Hernias develop most often near the belly button (navel) or the area where the leg meets the lower abdomen (groin). Common types of hernias include: ? Incisional hernia. This type bulges through a scar from an abdominal surgery. ? Umbilical hernia. This type develops near the navel. ? Inguinal hernia. This type develops in the groin or scrotum. ? Femoral hernia. This type develops below the groin, in the upper thigh area. ? Hiatal hernia. This type occurs when part of the stomach slides above the muscle that separates the abdomen from the chest (diaphragm). What are the causes? This condition may be caused by: ? Heavy lifting. ? Coughing over a long period of time. ? Straining to have a bowel movement. Constipation can lead to straining. ? An incision made during abdominal surgery. ? A physical problem that is present at (congenital defect). ? Being overweight or obese. ? Smoking. ? Excess fluid in the abdomen. ? Undescended testicles in males. What are the signs or symptoms? The main symptom is a skin-colored, rounded bulge in the area of the hernia. However, a bulge may not always be present. It may (more content not included)... Normal [facility] Inpatient Patient Summary Inpatient Patient Summary [address] [address] Patient Discharge Instructions PERSON INFORMATION Name: CHRISTIAN SHELBY Date of : 1975 Current Date: 03/05/2024 10:00:00 PHYSICIANS Admitting Physician: Liz MARTINEZ, Esvin Pierre Primary Care Physician: JOAN OROSCO CNP PCP Phone Number: [phone] Comment: Discharge Diagnosis: Small bowel obstruction; Ventral hernia Condition at Discharge: Improved CHRISTIAN SHELBY has been given the following list of follow-up instructions, prescriptions, and patient education materials: PATIENT FOLLOW-UP INFORMATION Diet: Discharge Activity: Discharge Restrictions: Wound Care Instructions: Remove Your Dressing In Days Call Your Doctor For: IF UNABLE TO CONTACT YOUR PHYSICIAN AND YOU FEEL IT IS AN EMERGENCY, GO TO THE NEAREST EMERGENCY ROOM OR CALL 911 Home Treatment: Devices/Equipment: None Special Services: Additional Instructions: Recommend following with bariatric surgery. Primary Care Physician to provide the following pending test results: None Follow up: With: Address: When: JOAN OROSCO [address] [place], [place] [id number] [phone] Business (1) Within 7 to 10 days Comments: Call for followup appointment Call physician if symptoms worsen With: Address: When: trauma clinic [address] [place] [address] 3, second floor, [address] [place] [address] , only if needed Comments: Please call to make follow up appointment if you have questions or concerns. In the event that this physician does not participate in your insurance network, please consult with your insurance company to find a nearby participating provider. Comment: I CHRISTIAN SHELBY, have received the attached patient education materials/instructions and have verbalized understanding: Patient Signature Date Clinican/Nurse Signature Date HERE ARE THE MEDICATION CHANGES THAT OCCURRED DURING YOUR HOSPITAL STAY Medications to Continue with No Changes Other Medications atorvastatin (atorvastatin 20 mg Tab) every day. Last Dose: Nex t Dose: busPIRone (busPIRone 5 mg Tab) By Mouth 2 times a day. Last Dose: Nex t Dose: glimepiride (glimepiride 4 mg Tab) By Mouth every day. Last Dose: Nex t Dose: losartan (losartan 25 mg Tab) By Mouth every day. Last Dose: Nex t Dose: metformin (metformin 1000 mg oral tablet, extended release) By Mouth every day. Last Dose: Nex t Dose: minocycline (minocycline 100 mg Cap) By Mouth every 12 hours. Last Dose: Nex t Dose: oxybutynin (oxybutynin 5 mg ER Tab) every day. Last Dose: Nex t Dose: tirzepatide (Mounjaro 5 mg/0.5 mL subcutaneous solution) Last Dose: Nex t Dose: venlafaxine (venlafaxine 75 mg Cap-ER) By Mouth every day. Last Dose: Nex t Dose: Comment: MEDICATION LIST PROVIDED FOR YOU IS A LIST OF YOUR CURRENT MEDICATIONS. PLEASE CARRY THIS WITH YOU AT ALL TIMES. atorvastatin (atorvastatin 20 mg Tab) every day. busPIRone (busPIRone 5 mg Tab) By Mouth 2 times a day. glimepiride (glimepiride 4 mg Tab) By Mouth every day. losartan (losartan 25 mg Tab) By Mouth every day. metformin (metformin 1000 mg oral tablet, extended release) By Mouth every day. minocycline (minocycline 100 mg Cap) By Mouth every 12 hours. oxybutynin (oxybutynin 5 mg ER Tab) every day. tirzepatide (Mounjaro 5 mg/0.5 mL subcutaneous solution) venlafaxine (venlafaxine 75 mg Cap-ER) By Mouth every day. Pharmacy Information: Other: [facility] Comment: PATIENT EDUCATION INFORMATION Instructions: Hernia, Adult A hernia is the bulging of an organ or tissue through a weak spot in the muscles of the abdomen. Hernias develop most often near the belly button (navel) or the area where the leg meets the lower abdomen (groin). Common types of hernias include: ? Incisional hernia. This type bulges through a scar from an abdominal surgery. ? Umbilical hernia. This type develops near the navel. ? Inguinal hernia. This type develops in the groin or scrotum. ? Femoral hernia. This type develops below the groin, in the upper thigh area. ? Hiatal hernia. This type occurs when part of the stomach slides above the muscle that separates the abdomen from the chest (diaphragm). What are the causes? This condition may be caused by: ? Heavy lifting. ? Coughing over a lo (more content not included)... Normal [facility] Interdisciplinary Note - Alexander e Manageron 06-27-2024 Interdisciplinary Note - Residential Insurance Inspector Interdisciplinary Note - Residential Insurance Inspector CRM to room to discuss DC planning. Patient is awake, alert and oriented. Patient is from home with his spouse. Patient spouse will transport at DC. Patient verified PCP, DME and insurance. Patient is here with abdomen pain. He has a know ventral hernia. Patient is an observation. Patient is assigned to Trauma Team. Patient feels better. He is hoping to be able to eat and DC home today. CRM will await updates from Trauma. Patient was provided CRM contact, isabel board updated. CRM following. Patient has no DC needs for DME, HH or PM. Normal [facility] Comment on above: Result Comment: Elec tronically Signed By: Bhavna Mcnair\.br\Date and Time Signed: 03/05/24 09:00 EDT Magnesiumon 03-05-2024 Magnesium [Mass/Vol] 1.8 mg/dL Normal 1.3-2.4 Fish er [facility] Comment on above: Performed By: #### 2 [id number] #### [facility] [address] [place] [address] UA with Cult Rflxon 03-05-20 Bilirubin Ql (U) Negative Normal Negative [facility] Comment on above: Performed By: #### 4 [id number] #### [facility] [address] [place] [address] Clarity (U) Clear Normal Clear [facility] Comment on above: Performed By: #### 4 [id number] #### [facility] [address] [place] [address] Color (U) Light-Yellow Normal Yellow [facility] Comment on above: Result Comment: Micr oscopic readings are only performed on those samples that meet specific criteria set forth by [facility]. Performed By: #### 4 [id number] #### [facility] [address] [place] [address] Epithelial cells.squamous Auto (Urine sed) [#/Area] 0-2 Invalid Interpretation Code [facility] Comment on above: Performed By: #### 4 [id number] #### [facility] [address] [place] [address] Glucose Ql (U) 4+ mg/dL Abnormal Negative [facility] Comment on above: Performed By: #### 4 [id number] #### [facility] [address] [place] [address] Hemoglobin Auto test strip (U) [Mass/Vol] Negative Normal Negative [facility] Comment on above: Performed By: #### 4 [id number] #### [facility] [address] [place] [address] Ketones Auto test strip Ql (U) 2+ mg/dL Abnormal Negative [facility] Comment on above: Performed By: #### 4 [id number] #### [facility] [address] [place] [address] Leukocyte esterase Auto test strip Ql (U) 25 Flora/uL Normal Negative [facility] Comment on above: Performed By: #### 4 [id number] #### [facility] [address] [place] [address] Mucus Auto Ql (U) Trace Normal Negative [facility] Comment on above: Performed By: #### 4 [id number] #### [facility] [address] [place] [address] Nitrite Auto test strip Ql (U) Negative Normal Negative [facility] Comment on above: Performed By: #### 4 [id number] #### [facility] [address] [place] [address] pH (U) 5.5 [pH] Invalid Interpretation Code 5.0-9.0 [facility] Comment on above: Performed By: #### 4 [id number] #### [facility] [address] [place] [address] Protein Ql (U) Negative Normal Negative [facility] Comment on above: Performed By: #### 4 [id number] #### [facility] [address] [place] [address] RBC Ql (U) 0-3 Normal 0-3 [facility] Comment on above: Performed By: #### 4 [id number] #### [facility] [address] [place] [address] Specific gravity (U) [Rel density] 1.026 Invalid Interpretation Code 1.005-1.03 0 [facility] Comment on above: Performed By: #### 4 [id number] #### [facility] [address] [place] [address] Urobilinogen (U) [Mass/Vol] Negative Normal Negative [facility] Comment on above: Performed By: #### 4 [id number] #### [facility] [address] [place] [address] WBC Auto (Urine sed) [#/Area] 0-5 Normal 0-5 [facility] Comment on above: Performed By: #### 4 [id number] #### [facility] [address] [place] [address] URINALYSISOrdered By: SYSTEM SYSTEM on 03-05-2024 Bilirubin Ql (U) Negative Normal Negativemg /dL [facility] UA Auto SS Clarity (U) Clear (03/05/24 7:36 AM) Normal Clear [facility] UA Auto SS Color (U) Light-Yellow 1 (03/05/24 7:36 AM) Normal Yellow [facility]A Auto SS Comment on above: Interpretive Data: M icroscopic readings are only performed on those samples that meet specific criteria set forth by [facility]. Epithelial cells.squamous Auto (Urine sed) [#/Area] 0-2 graded/HPF Invalid Interpretation Code [facility] UA Auto SS Glucose Ql (U) 4+ mg/dL Invalid Interpretation Code Negativemg /dL [facility] UA Auto SS Hemoglobin Auto test strip (U) [Mass/Vol] Negative Normal Negativemg /dL [facility] UA Auto SS Ketones Auto test strip Ql (U) 2+ mg/dL Invalid Interpretation Code Negativemg /dL [facility] UA Auto SS Leukocyte esterase Auto test strip Ql (U) 25 Flora/uL Flora/uL Normal NegativeLe u/uL [facility] UA Auto SS Mucus Auto Ql (U) Trace graded/LPF Normal Negati vegr aded/LPF [facility] UA Auto SS Nitrite Auto test strip Ql (U) Negative Normal Negativemg /dL [facility] UA Auto SS pH (U) 5.5 *NA* (03/05/24 7:36 AM) Invalid Interpretation Code 5.0 - 9.0 [facility] UA Auto SS Protein Ql (U) Negative Normal Negativemg /dL [facility] UA Auto SS RBC Ql (U) 0-3 graded/HPF Normal 0-3graded/ HPF [facility] UA Auto SS Specific gravity (U) [Rel density] 1.026 *NA* (03/05/24 7:36 AM) Invalid Interpretation Code 1.005 - 1.030 [facility] UA Auto SS Urobilinogen (U) [Mass/Vol] Negative Normal Negativemg /dL [facility] UA Auto SS WBC Auto (Urine sed) [#/Area] 0-5 graded/HPF Normal 0-5graded/ HPF [facility] UA Auto SS URINALYSISOrdered By: Ruiz latif on 03-05-2024 UA Spec Desc Clean Catch (03/05/24 7:36 AM) Normal [facility] UA Auto SS Work Phone: eGFRon 03-05-2024 eGFR 119 mL/min/1.73 m2 Normal >=59 [facility] Comment on above: Order Comment: Order added by Discern Expert. Performed By: #### 1 [id number] #### [facility] [address] [place] [address] [facility] Anion gap [Moles/Vol] 16 mmol/L Normal 6-16 [facility] Comment on above: Performed By: #### 2 [id number] #### [facility] [address] [place] [address] Calcium [Mass/Vol] 8.0 mg/dL Low 8.9-11.1 [facility] Comment on above: Performed By: #### 2 [id number] #### [facility] [address] [place] [address] Chloride [Moles/Vol] 104 mmol/L Normal 101-111 [facility] Comment on above: Performed By: #### 2 [id number] #### [facility] [address] [place] [address] CO2 [Moles/Vol] 21 mmol/L Normal 21-31 [facility] Comment on above: Performed By: #### 2 [id number] #### [facility] [address] [place] [address] Creatinine [Mass/Vol] 0.7 mg/dL Normal 0.5-1.3 [facility] Comment on above: Performed By: #### 2 [id number] #### [facility] [address] [place] [address] Glucose [Mass/Vol] 194 mg/dL Normal 55-199 [facility] Comment on above: Performed By: #### 2 [id number] #### [facility] [address] [place] [address] Potassium [Moles/Vol] 3.9 mmol/L Normal 3.5-5.3 [facility] Comment on above: Performed By: #### 2 [id number] #### [facility] [address] [place] [address] Sodium [Moles/Vol] 137 mmol/L Normal 135-145 [facility] Comment on above: Performed By: #### 2 [id number] #### [facility] [address] [place] [address] Urea nitrogen [Mass/Vol] 12 mg/dL Normal 5-21 [facility] Comment on above: Performed By: #### 2 [id number] #### [facility] [address] [place] [address] Urea nitrogen/Creatinine [Mass ratio] 17 No Units Normal 10-20 [facility] Comment on above: Performed By: #### 2 [id number] #### [facility] [address] [place] [address] Anion gap [Moles/Vol] 21 mmol/L High 6-16 [facility] Comment on above: Performed By: #### 2 [id number] #### [facility] [address] [place] [address] Calcium [Mass/Vol] 8.8 mg/dL Low 8.9-11.1 [facility] Comment on above: Performed By: #### 2 [id number] #### [facility] [address] [place] [address] Chloride [Moles/Vol] 100 mmol/L Low 101-111 [facility] Comment on above: Performed By: #### 2 [id number] #### [facility] [address] [place] [address] CO2 [Moles/Vol] 16 mmol/L Low 21-31 [facility] Comment on above: Performed By: #### 2 [id number] #### [facility] [address] [place] [address] Creatinine [Mass/Vol] 0.7 mg/dL Normal 0.5-1.3 [facility] Comment on above: Performed By: #### 2 [id number] #### [facility] [address] [place] [address] Glucose [Mass/Vol] 272 mg/dL High 55-199 [facility] Comment on above: Performed By: #### 2 [id number] #### [facility] [address] [place] [address] Potassium [Moles/Vol] 4.3 mmol/L Normal 3.5-5.3 [facility] Comment on above: Performed By: #### 2 [id number] #### [facility] [address] [place] [address] Sodium [Moles/Vol] 133 mmol/L Low 135-145 [facility] Comment on above: Performed By: #### 2 [id number] #### [facility] [address] [place] [address] Urea nitrogen [Mass/Vol] 12 mg/dL Normal 5-21 [facility] Comment on above: Performed By: #### 2 [id number] #### [facility] [address] [place] [address] Urea nitrogen/Creatinine [Mass ratio] 17 No Units Normal 10-20 [facility] Comment on above: Performed By: #### 2 [id number] #### [facility] [address] [place] [address] Bld Gas Venon 03-04-2024 FIO2 BG 21 Invalid Interpretation Code [facility] Comment on above: Performed By: #### 1 [id number] #### [facility] [address] [place] [address] pCO2 Myron 36.7 mmHg Low 38.0-50.0 [facility] Comment on above: Performed By: #### 1 [id number] #### [facility] [address] [place] [address] pH Myron 7.370 Normal 7.320-7.43 0 [facility] Comment on above: Performed By: #### 1 [id number] #### [facility] [address] [place] [address] Sample Type Venous Draw Normal [facility] Comment on above: Performed By: #### 1 [id number] #### [facility] [address] [place] [address] CBC w/ Auto Diffon 4 Basophils/100 WBC (Bld) 0.3 % Normal 0.0-2.0 [facility] Comment on above: Performed By: #### 2 [id number] #### [facility] [address] [place] [address] Basophils/Leukocytes Auto (Bld) [Pure # fraction] 0.1 E9/L Normal 0.0-0.2 [facility] Comment on above: Performed By: #### 2 [id number] #### [facility] [address] [place] [address] Eosinophils (Bld) [#/Vol] 0.0 E9/L Normal 0.0-0.5 [facility] Comment on above: Performed By: #### 2 [id number] #### [facility] [address] [place] [address] Eosinophils/100 WBC (Bld) 0.2 % Normal 0.0-8.0 [facility] Comment on above: Performed By: #### 2 [id number] #### [facility] [address] [place] [address] Erythrocyte distribution width (RBC) [Ratio] 15.9 % High 10.9-14.2 [facility] Comment on above: Performed By: #### 2 [id number] #### [facility] [address] [place] [address] Hematocrit (Bld) [Volume fraction] 48.0 % Normal 37.7-49.0 [facility] Comment on above: Performed By: #### 2 [id number] #### [facility] [address] [place] [address] Hemoglobin (Bld) [Mass/Vol] 15.8 g/dL Normal 13.5-17.5 [facility] Comment on above: Performed By: #### 2 [id number] #### [facility] [address] [place] [address] Lymphocytes (Bld) [#/Vol] 1.2 E9/L Normal 1.0-4.0 [facility] Comment on above: Performed By: #### 2 [id number] #### [facility] [address] [place] [address] Lymphocytes/100 WBC (Bld) 7.3 % Low 14.0-50.0 [facility] Comment on above: Performed By: #### 2 [id number] #### [facility] [address] [place] [address] MCH (RBC) [Entitic mass] 27.8 pg Normal 27.0-34.0 [facility] Comment on above: Performed By: #### 2 [id number] #### [facility] [address] [place] [address] MCHC (RBC) [Mass/Vol] 32.9 g/dL Normal 31.4-36.0 [facility] Comment on above: Performed By: #### 2 [id number] #### [facility] [address] [place] [address] MCV (RBC) [Entitic vol] 84.5 fL Normal 80.0-100.0 [facility] Comment on above: Performed By: #### 2 [id number] #### [facility] [address] [place] [address] Monocytes (Bld) [#/Vol] 0.6 E9/L Normal 0.2-1.0 [facility] Comment on above: Performed By: #### 2 [id number] #### [facility] [address] [place] [address] Neutrophils (Bld) [#/Vol] 13.9 E9/L High 2.0-7.5 [facility] Comment on above: Performed By: #### 2 [id number] #### [facility] [address] [place] [address] Neutrophils/100 WBC (Bld) 88.3 % High 36.0-75.0 [facility] Comment on above: Performed By: #### 2 [id number] #### [facility] [address] [place] [address] Platelet mean volume (Bld) [Entitic vol] 7.2 fL Normal 6.4-10.8 [facility] Comment on above: Performed By: #### 2 [id number] #### [facility] [address] [place] [address] Platelets (Bld) [#/Vol] 313.0 E9/L Normal 150.0-500. 0 [facility] Comment on above: Performed By: #### 2 [id number] #### [facility] [address] [place] [address] RBC (Bld) [#/Vol] 5.7 E12/L Normal 4.3-5.9 [facility] Comment on above: Performed By: #### 2 [id number] #### [facility] [address] [place] [address] WBC corrected for nucl RBC Auto (Bld) [#/Vol] 15.8 E9/L High 4.0-11.0 [facility] Comment on above: Performed By: #### 2 [id number] #### [facility] [address] [place] [address] CHEMISTRYOrdered By: Lab ROP User on 03-04-2024 Glucose [Mass/Vol] 169 mg/dL High 55 - 99 mg/dL [facility] [place] Subsection POC Device SN [id number] 1 Invalid Interpretation Code FT POC Subsection POC User ID [id number] 1 Invalid Interpretation Code [facility] [place] Subsection POC Username SIR DEMARCO CARR Invalid Interpretation Code [facility] [place] Subsection Glucose [Mass/Vol] 191 mg/dL High 55 - 99 mg/dL [facility] [place] Subsection Comment on above: Result Comment: Isabelle adames RN/ POC Device SN [id number] 1 Invalid Interpretation Code [facility] [place] Subsection POC User ID [id number] 1 Invalid Interpretation Code [facility] [place] Subsection POC Username TIM WARE Invalid Interpretation Code [facility] [place] Subsection CHEMISTRYOrdered By: SYSTEM SYSTEM on 03-04-2024 Anion gap [Moles/Vol] 16 mmol/L Normal 6 - 16 mEq/L [facility] Calcium [Mass/Vol] 8.0 mg/dL Low 8.9 - 11. 1 mg/dL [facility] Chloride [Moles/Vol] 104 mmol/L Normal 101 - 1 11 mmol/L [facility] CO2 [Moles/Vol] 21 mmol/L Normal 21 - 31 mmol/L [facility] Creatinine [Mass/Vol] 0.7 mg/dL Normal 0.5 - 1.3 mg/dL [facility] eGFR 113 mL/min/1.73 m2 Normal >=59mL/mi n /1.73 m2 [facility] Glucose [Mass/Vol] 194 mg/dL Normal 55 - 199 mg/dL [facility] Lactic Acid Lvl 1.3 mmol/L Normal 0.5 - 2.2 mmol/L [facility] Potassium [Moles/Vol] 3.9 mmol/L Normal 3.5 - 5.3 mmol/L [facility] Sodium [Moles/Vol] 137 mmol/L Normal 135 - 145 mmol/L [facility] Urea nitrogen [Mass/Vol] 12 mg/dL Normal 5 - 21 mg/dL [facility] Urea nitrogen/Creatinine [Mass ratio] 17 mg/mg Normal 10 - 20 [facility] Albumin [Mass/Vol] 4.2 g/dL Normal 3.3 - 5.0 gm/dL [facility] Albumin/Globulin [Mass ratio] 1.1 {ratio} Normal 1.1 - 2.2 [facility] ALP [Catalytic activity/Vol] 77 [iU]/d Normal 21 - 98 Int._Unit/ L [facility] ALT No additional P-5'-P [Catalytic activity/Vol] 30 [iU]/d Normal 6 - 46 Int._Unit/ L [facility] Anion gap [Moles/Vol] 21 mmol/L High 6 - 16 mEq/L [facility] AST [Catalytic activity/Vol] 16 [iU]/d Normal 5 - 43 Int._Unit/ L [facility] Bilirubin [Mass/Vol] 0.5 mg/dL Normal 0.0 - 1 .1 mg/dL [facility] Bilirubin.direct [Mass/Vol] 0.1 mg/dL Normal 0.0 - 0.4 mg/dL [facility] Bilirubin.indirect [Mass or moles/Vol] 0.4 mg/dL Normal 0.1 - 0.9 mg/dL [facility] Calcium [Mass/Vol] 8.8 mg/dL Low 8.9 - 11. 1 mg/dL [facility] Chloride [Moles/Vol] 100 mmol/L Low 101 - 1 11 mmol/L [facility] CO2 [Moles/Vol] 16 mmol/L Low 21 - 31 mmol/L [facility] Creatinine [Mass/Vol] 0.7 mg/dL Normal 0.5 - 1.3 mg/dL [facility] eGFR 113 mL/min/1.73 m2 Normal >=59mL/mi n /1.73 m2 [facility] Globulin (S) [Mass/Vol] 4.0 g/dL Normal 1.4 - 4.0 gm/dL [facility] Glucose [Mass/Vol] 272 mg/dL High 55 - 199 mg/dL [facility] Lipase [Catalytic activity/Vol] 9 U/L Low 13 - 58 unit/L [facility] Potassium [Moles/Vol] 4.3 mmol/L Normal 3.5 - 5.3 mmol/L [facility] Protein [Mass/Vol] 8.2 g/dL High 6.0 - 7.8 gm/dL [facility] Sodium [Moles/Vol] 133 mmol/L Low 135 - 145 mmol/L [facility] Urea nitrogen [Mass/Vol] 12 mg/dL Normal 5 - 21 mg/dL [facility] Urea nitrogen/Creatinine [Mass ratio] 17 mg/mg Normal 10 - [address] Abdomen/Pelvis w/ Contras ton 03-04-2024 CT Abdomen/Pelvis w/ Contrast Exam Date/Time: 03/04/2024 16:24 EDT Reason for Exam: ABDOMINAL PAIN, ACUTE, NONLOCALIZED;Other (please specify) Report IMPRESSION: Findings concerning for developing small bowel obstruction secondary to the ventral hernia. EXAMINATION: CT Abdomen/Pelvis w/ Contrast HISTORY: ABDOMINAL PAIN, ACUTE, NONLOCALIZED. Hernia. TECHNIQUE: CT of the abdomen and pelvis was performed using standard technique with intravenous contrast, scanning from just above the dome of the diaphragm to the symphysis pubis. Including delayed images through the kidneys. Including sagittal and coronal reconstructions on both phases. Unless otherwise stated, incidental findings identified in this report do not require routine follow-up imaging. All CT scans at this facility use dose modulation, iterative reconstruction, and/or weight based dosing when appropriate to reduce radiation dose to as low as reasonably achievable. COMPARISON: 08/11/2023. RESULT: Liver: Diffuse hepatic steatosis without focal hepatic lesion. Biliary: Gallbladder unremarkable. No biliary ductal dilation. Pancreas: No mass or duct dilation. Spleen: No mass or splenomegaly. Adrenals: No mass. Kidneys: No calculus or hydronephrosis. No suspicious renal lesions. Delayed phase images unremarkable. GI tract: Large ventral hernia containing loops of small bowel, including some fluid-filled mildly prominent loops of small bowel. The hernia also contains moderate free fluid, and also portions of the appendix, with the appendix otherwise unremarkable. There are some decompressed loops of small bowel exiting the hernia and also mildly dilated fluid-filled loops of upstream small bowel. No evidence for diverticulitis. Majority of the colon is collapsed and not well evaluated. Report Lymph nodes: No abdominal or pelvic lymphadenopathy. Mesentery/Peritoneum/Retrope ritoneum: Ventral hernia as above containing fluid and bowel. No pneumoperitoneum. Small amount of stranding adjacent to the dilated loops of small bowel. Vasculature: The celiac axis and SMA are patent. The portal vein and branches, splenic vein, SMV, and hepatic veins are patent. No abdominal aortic or iliac artery aneurysm. Pelvis: No significant free pelvic fluid. Bladder unremarkable. Bones: No acute osseous findings. Degenerative changes. Soft tissues: Unremarkable. Lower thorax: Unremarkable. Ordering Provider: Ruiz Uriarte FINAL REPORT Dictated: 03/04/2024 4:46 pm Fareed Hebert MD Signed (Electronic Signature): 03/04/2024 4:46 pm Signed by: Fareed Hebert MD Transcribed by: SHERIF Technologist: JANETTE Technical Comments GFR (mL/min/1/73m2) 113 Contrast: Isovue 300 Contrast amount in ml's: 100 Normal [facility] Capillary Glucose POCon 02-08 Glucose [Mass/Vol] 169 mg/dL High [address] [place] [address] Comment on above: Performed By: #### 2 [id number] #### [facility] [address] [place] [address] Glucose [Mass/Vol] 191 mg/dL [place] [id number] [place] [address] Comment on above: Result Comment: Isabelle adames RN/ Performed By: #### 2 [id number] #### [facility] [address] [place] [address] Consent for Treatmenton 02-08 Consent for Treatment [id number] Normal [facility] ED Clinical Summaryon 2023 ED Clinical Summary (Inserted Image. Angella ble to display) [address] [address] ED Clinical Summary Person Information Name: CHRISTIAN SHELBY Dee/[facility] Age: 48 Years : 1975 Sex: Male Language: Serbian PCP: JOAN OROSCO CNP Marital Status: Phone: [phone] MRN: Visit Id: Visit Reason: Abdominal pain; ABD PAIN Speciality: Acuity: 2 Enc Type: Emergency Med Service: Emergency Arrival: 03/04/2024 13:47:44 Discharge: LOS: 000 04:16 Checkin: 03/04/2024 13:47:44 Checkout: 03/04/2024 18:03:38 Dispo Type: Admitted as IP to this [facility] EVENTS: Event Name Event Status Request Date/Time Start Date/Time Complete Date/Time Arrive Complete 03/04/2024 13:47:44 03/04/2024 13:47:44 03/04/2024 13:47:44 Document Home Meds Request 03/04/2024 13:47:44 Triage Complete 03/04/2024 13:47:44 03/04/2024 14:25:47 03/04/2024 14:25:47 Registration Complete 03/04/2024 13:58:32 03/04/2024 13:58:32 03/04/2024 13:58:32 Reg Complete Request 03/04/2024 13:58:32 Reg Bed Request Complete 03/04/2024 13:58:32 03/04/2024 13:58:32 03/04/2024 13:58:32 Bed Assign Complete 03/04/2024 15:04:07 03/04/2024 15:04:07 03/04/2024 15:04:07 Dr Exam Complete 03/04/2024 15:04:07 03/04/2024 15:08:29 03/04/2024 15:08:29 RN Exam Complete 03/04/2024 15:04:07 03/04/2024 15:41:02 03/04/2024 15:41:02 Registration Request 03/04/2024 15:08:29 Dr Exam Complete 03/04/2024 15:09:34 03/04/2024 15:09:34 03/04/2024 15:09:34 CT Complete 03/04/2024 15:13:54 03/04/2024 16:08:41 03/04/2024 16:24:25 Meds Admin Complete 03/04/2024 15:13:54 03/04/2024 15:24:06 Pending Labs Request 03/04/2024 15:13:54 Lab Complete 03/04/2024 15:13:54 03/04/2024 15:50:55 Pending Labs Complete 03/04/2024 15:20:18 03/04/2024 15:20:18 03/04/2024 15:47:14 Lab Complete 03/04/2024 15:20:18 03/04/2024 15:20:18 03/04/2024 15:47:14 Meds Admin Complete 03/04/2024 15:57:16 03/04/2024 16:10:59 Bed Request Request 03/04/2024 17:01:22 Reg Bed Request Request 03/04/2024 17:01:22 Admit Request 03/04/2024 17:01:22 NPO Request 03/04/2024 17:01:39 Meds Admin Request 03/04/2024 17:02:53 Pending Labs Request 03/04/2024 17:02:53 Lab Request 03/04/2024 17:02:53 Patient Care Request 03/04/2024 17:02:53 Meds Admin Request 03/04/2024 17:05:24 Pending Labs Complete 03/04/2024 17:13:58 03/04/2024 17:13:58 03/04/2024 17:13:59 Pending Labs Request 03/04/2024 17:19:08 Lab Request 03/04/2024 17:19:08 Pending Labs Request 03/04/2024 17:19:43 Lab Request 03/04/2024 17:19:43 Pending Labs Cancel 03/04/2024 17:20:36 03/04/2024 17:36:00 RT Tx/ABG Request 03/04/2024 17:20:36 Pending Labs Inlab 03/04/2024 17:21:43 RT Tx/ABG Request 03/04/2024 17:21:43 Inpatient Bed Ready Complete 03/04/2024 18:03:38 03/04/2024 18:03:38 03/04/2024 18:03:38 ADDRESS: [address] [place] [phone] PHYS DOC NOTES: MEDICAL INFORMATION: Prescriptions Given: Medications to Continue with No Changes Other Medications atorvastatin (atorvastatin 20 mg Tab) every day. busPIRone (busPIRone 5 mg Tab) By Mouth 2 times a day. glimepiride (glimepiride 4 mg Tab) By Mouth every day. losartan (losartan 25 mg Tab) By Mouth every day. metformin (metformin 1000 mg oral tablet, extended release) By Mouth every day. minocycline (minocycline 100 mg Cap) By Mouth every 12 hours. oxybutynin (oxybutynin 5 mg ER Tab) every day. tirzepatide (Mounjaro 5 mg/0.5 mL subcutaneous solution) venlafaxine (venlafaxine 75 mg Cap-ER) By Mouth every day. PATIENT EDUCATION INFORMATION: Instructions: Follow up: DIAGNOSIS: Small bowel obstruction; Ventral hernia Normal [facility] ED Note-Physicianon 03-04-20 ED Note-Physician Basic Information Time Seen: Ruiz Uriarte PA-C 03/04/2024 15:08 Chief Complaint hx hernia, states he was recently here and it was reduced. supposed to have gastric bypass surgery. c/o abd. pain 10/10 and pt. is diaphoretic. History of Present Illness A 48-year-old male reports emergency department chief complaint of a hernia that is causing a lot of abdominal pain. Reports he was here back in August, and had it reduced. Reports no surgeries previously, but was supposed to have surgery for this, but has been evaluated multiple times, and they will not because of his weight, as well as his diabetes. He reports a lot of pain. He reports that this started last night, he has thrown up and has not been able to keep much down. He denies any fevers or chills. Denies abdominal surgeries otherwise. Denies being on any blood thinners. Denies any fevers or chills. Denies any chest pain or shortness of breath. Review of Systems No other aggravating or relieving factors no other associated symptoms no other prior treatments or complaints. Family: Reviewed and noncontributory Social: lives at home Review of systems negative unless otherwise specified in the HPI. Physical Exam Vitals & Measurements T: 36.4 ?C(Oral) HR: 88(Monitored) RR: 16 BP: 139/69 SpO2: 97% HT: 185 cm WT: 182 kg BMI: 53.18 General: The patient appears well and in no apparent distress. Patient is resting in bed. Afebrile Skin: Warm, dry, no pallor noted. Head: Normocephalic, atraumatic Neck: No JVD Eye: PERRLA, EOMI ENT: Moist mucus membranes Cardiovascular: Regular rate normal peripheral perfusion Respiratory: No respiratory distress no accessory muscle use no obvious audible wheezing Chest Wall: no deformity Musculoskeletal: normal ROM, no deformity, no swelling GI: There is a ventral hernia located on the patient's left side of his abdomen, with tenderness palpation. It is hard to touch. No warmth on palpation. No other tenderness noted generalized throughout this area. Neurological: A&O moves all extremities equal strength and symmetry Psychiatric: Cooperative and appropriate Medical Decision Making MEDICAL DECISION MAKING Number and Complexity of Problems Differential Diagnosis: [] [facility] Data External documents reviewed: [] My EKG interpretation: [] My CT interpretation: Reviewed My X-ray interpretation: [] My Ultrasound interpretation: [] Decision rules/scores evaluated: [] Discussed with: [] Treatment and Disposition ED Course: 48-year-old male reports to the emergency department with chief complaint of hernia pain. Reports that this started last night and has vomited. Reports he is diabetic and has not had surgery because of his weight and diabetes. Exam is concerning for possible incarcerated hernia. Due to this, did perform a bedside reduction, with mild improvement. He was in a lot of pain, so we did give the patient pain medication, which we are able to reduce the hernia even further, with Leandra Wallace of the [facility] trauma surgery team coming down and performing reduction that did increase patient's symptoms. He states that he has been vomiting up. Reports history of diabetes. Due to concerns we did do a full workup. Lab reviewed noted. Appears to be dehydrated. Blood gas was negative for any signs of DKA. We did do a CT that did show some findings concerning for small bowel obstruction secondary to the ventral hernia. Due to this, I did discuss the case with the trauma surgery team. They were agreeable with admission. Discussed with patient was also agreeable. Shared decision making: [] Code status: [] Assessment/Plan Small bowel obstruction (K56.609: Unspecified intestinal obstruction, unspecified as to partial versus complete obstruction) Ventral hernia (K43.9: Ventral hernia without obstruction or gangrene) Orders: HYDROmorphone, 1 mg = 1 mL, Injection, IV Push, Once, Stop date 03/04/24 15:13:00 EDT, STAT, Start date 03/04/24 15:13:00 EDT, 03/04/24 15:13:00 EDT ondansetron, 4 mg = 2 mL, Injection, IV Push, Once, Stop date 03/04/24 15:13:00 EDT, STAT, Start date 03/04/24 15:13:00 EDT, 03/04/24 15:13:00 EDT Sodium Chloride 0.9% intravenous solution, 1,000 mL, Soln-IV, IV, Once, Stop date 03/04/24 15:57:00 EDT, STAT, Start date 03/04/24 15:57:00 EDT, Infuse over 61, minute(s) Sodium Chloride 0.9% intravenous solution, 1,000 mL, Soln-IV, IV, Once, Stop date 03/04/24 15:13:00 EDT, STAT, Start date 03/04/24 15:13:00 EDT, Infuse over 61, minute(s) Basic Metabolic Panel Blood Gas Myron CBC w/ Auto Diff CT Abdomen/Pelvis w/ Contrast eGFR Extra Blue Tube Hepatic Function Panel Lipase Level NPO Diet Place in Status UA with Cult Rflx Medications Administered Given Dilaudid 1 mg/mL injectable solution, 1 mg, IV Push NS 1000 ml Bolus, 1000 mL, IV NS 1000 ml Bolus, 1000 mL, IV ondansetron 4 mg/2 mL Inj, 4 mg, IV Push Disposition Plan Patient Discharge Condition Stable Dis (more content not included)... Normal [facility] Comment on above: Result Comment: Elec tronically Signed By: Ruiz Uriarte PA-C\.br\Date and Time Signed: 03/04/24 18:36 EDT\.br\Electronically Co-Signed By: Bryce Gibson M.D.\.br\Date and Time Co-Signed: 03/04/24 18:44 EDT ED Patient Education Noteon 03-04-2024 ED Patient Education Note Normal [facility] ED Patient Summaryon 024 ED Patient Summary (Inserted Image. Angella ble to display) [place] [id number] Patient Discharge Instructions Person Information Name: CHRISTIAN SHELBY Age: 48 Years Arrival Date: 03/04/2024 13:47:44 Discharge Diagnosis: Small bowel obstruction; Ventral hernia Primary Care Physician: JOAN OROSCO CNP Provider Information Primary Provider: Bryce Gibson M.D. Advanced Safety Teacher:None The exam and treatment you received in the Emergency Department were for an urgent problem and are not intended as complete care. It is important that you follow up with a doctor, nurse practitioner, or physician?s recreation assistant for ongoing care. If your symptoms become worse or you do not improve as expected and you are unable to reach your usual health care provider, you should return to the Emergency Department. We are available 24 hours a day. CHRISTIAN SHELBY has been given the following list of patient education materials, prescriptions and follow-up instructions: Follow-up Instructions: In the event that this physician does not participate in your insurance network, please consult with your insurance company to find a nearby participating provider. Patient Education Materials: A MESSAGE TO ALL PATIENTS REGARDING OPIOIDS PRESCRIPTION OPIOIDS: WHAT YOU NEED TO KNOW Prescription opioids can be used to help relieve avthbfkl-lz-chwnvi pain and are often prescribed following a surgery or injury, or for certain health conditions. These medications can be an important part of the treatment but also come with serious risks. It is important to work with your healthcare provider to make sure you are getting the safest, most effective care. WHAT ARE THE RISKS AND SIDE EFFECTS OF OPIOID USE? Prescription opioids carry serious risks of addiction and overdose, especially with prolonged use. An opioid overdose, often marked by slowed breathing, can cause sudden . The use of prescription opioids can have a number of side effects as well, even when taken as directed: ? Tolerance?meaning you might need to take more of the medication for the same pain relief ? Physical dependence?meaning you have symptoms of withdrawal when a medication is stopped ? Increased sensitivity to pain ? Constipation ? Nausea, vomiting, and dry mouth ? Sleepiness and dizziness ? Confusion ? Depression ? Low levels of testosterone that can result in lower sex drive, energy, and strength ? Itching and sweating RISKS ARE GREATER WITH: ? History of drug misuse, substance use disorder, or overdose ? Mental health conditions (such as depression or anxiety) ? Sleep apnea ? Older age (65 years and older) ? Avoid alcohol while taking prescription opioids. Also, unless specifically advised by your health care provider, medications to avoid include: ? Benzodiazepines (such as Xanax or Valium) ? Muscle relaxants (such as Soma or Flexeril) ? Hypnotics (such as Ambien or Lunesta) ? Other prescription opioids KNOW YOUR OPTIONS Talk to your health care provider about ways to manage your pain that don?t involve prescription opioids. Some of these options may actually work better and have fewer risks and side effects. Options may include: ? Pain relievers such as acetaminophen, ibuprofen, and naproxen ? Some medication that are also used for depression or seizures ? Physical therapy and exercise ? Cognitive behavioral therapy, a psychological, goal-directed approach, in which patients learn how to modify physical, behavioral, and emotional triggers of pain and stress. IF YOU ARE PRESCRIBED OPIOIDS FOR PAIN: ? Never take opioids in greater amounts or more often than prescribed. ? Follow up with your primary health care provider. o Work together to create a plan on how to manage your pain. o Talk about ways to help manage your pain that don?t involve prescription opioids. o Talk about any and all concerns and side effects. ? Help prevent misuse and abuse o Never sell or share prescription opioids. o Never use another person?s prescription opioids. ? Store prescription opioids in a secure place and out of reach of others (this may include visitors, children, friends, and family). ? Safely dispose of unused prescription opioids: Find your community drug take-back program or your pharmacy mail-back program, or flush them down the toilet, following guidance from the Food and Drug Administration (www.fda.gov/Drugs/Resources ForYou). ? Visit www.cdc.gov/drugoverdose to learn about the risks of opioids abuse and overdose. ? If you believe you may be struggling with addiction, tell your health career consultant and ask for guidance or call SAMHSA?S National Helpline at 0-630-887-DQFS. v Source: [place] Department of Health and Human Services/Center for Disease Control & Prevention [facility] Medications Given: Medication Dose R (more content not included)... Normal [facility] FT Blood GasesOrdered By: Faisal Mcgarry on 03-04-2024 Allens Test Not Applicable (03/04/24 5:41 PM) Normal [facility] [place] Auto SS Drawn by lab Invalid Interpretation Code [facility] [place] Auto SS Sample Site OTHER (03/04/24 5:41 PM) Normal [facility] Resp Auto SS FT Blood GasesOrdered By: Maria Eugenia Reeves on 03-04-2024 FIO2 BG 21 1 Invalid Interpretation Code [facility] Resp Auto SS pCO2 Myron 36.7 mm[Hg] Low 38.0 - 50.0 mmHg [facility] Resp Auto SS pH (Bld) 7.370 [pH] Normal 7.320 - 7.430 [facility] [place] Auto SS Sample Type Venous Draw (03/04/24 5:41 PM) Normal [facility] Resp Auto SS HEMATOLOGYOrdered By: SYSTEM SYSTEM on 03-04-2024 Basophils/100 WBC (Bld) 0.3 % Normal 0.0 - 2.0 % Remisol Heme Basophils/Leukocytes Auto (Bld) [Pure # fraction] 0.1 E9/L Normal 0.0 - 0.2 E9/L Rem[facility] Heme Eosinophils (Bld) [#/Vol] 0.0 E9/L Normal 0.0 - 0.5 E9/L [facility] Heme Eosinophils/100 WBC (Bld) 0.2 % Normal 0.0 - 8.0 % Remisol Heme Erythrocyte distribution width (RBC) [Ratio] 15.9 % High 10.9 - 14.2 % Rem[facility] Heme Hematocrit (Bld) [Volume fraction] 48.0 % Normal 37.7 - 49.0 % Rem[facility] Heme Hemoglobin (Bld) [Mass/Vol] 15.8 g/dL Normal 13.5 - 17.5 gm/dL [facility] Lymphocytes (Bld) [#/Vol] 1.2 E9/L Normal 1.0 - 4.0 E9/L [facility] Lymphocytes/100 WBC (Bld) 7.3 % Low 14.0 - 50.0 % [facility]e MCH (RBC) [Entitic mass] 27.8 pg Normal 27.0 - 34.0 pg [facility] Heme MCHC (RBC) [Mass/Vol] 32.9 g/dL Normal 31.4 - 36.0 gm/dL [facility]e MCV (RBC) [Entitic vol] 84.5 fL Normal 80.0 - 100.0 fL [facility]e Monocytes (Bld) [#/Vol] 0.6 E9/L Normal 0.2 - 1.0 E9/L [facility]e Monocytes/100 WBC (Bld) 3.9 % Low 4.0 - 14.0 % Rem[facility] Heme Neutrophils (Bld) [#/Vol] 13.9 E9/L High 2.0 - 7.5 E9/L [facility] Neutrophils/100 WBC (Bld) 88.3 % High 36.0 - 75.0 % [facility] Platelet mean volume (Bld) [Entitic vol] 7.2 fL Normal 6.4 - 10.8 fL [facility]e Platelets (Bld) [#/Vol] 313.0 E9/L Normal 150.0 - 500.0 E9/L [facility]e RBC (Bld) [#/Vol] 5.7 E12/L Normal 4.3 - 5.9 E12/L [facility] WBC corrected for nucl RBC Auto (Bld) [#/Vol] 15.8 E9/L High 4.0 - 11.0 E9/L [facility] Heme Hep Func Panelon 03-04-2024 Albumin [Mass/Vol] 4.2 g/dL Normal 3.3-5.0 [facility] Comment on above: Performed By: #### 2 [id number] #### [facility] [address] [place] [address] Albumin/Globulin (S) [Mass conc ratio] 1.1 Normal 1.1-2.2 [facility] Comment on above: Performed By: #### 2 [id number] #### [facility] [address] [place] [address] ALP [Catalytic activity/Vol] 77 Int._Unit/L Normal 21-98 [facility] Comment on above: Performed By: #### 2 [id number] #### [facility] [address] [place] [address] ALT No additional P-5'-P [Catalytic activity/Vol] 30 Int._Unit/L Normal 6-46 [facility] Comment on above: Performed By: #### 2 [id number] #### [facility] [address] [place] [address] AST [Catalytic activity/Vol] 16 Int._Unit/L Normal 5-43 [facility] Comment on above: Performed By: #### 2 [id number] #### [facility] [address] [place] [address] Bilirubin [Mass/Vol] 0.5 mg/dL Normal 0.0-1.1 [facility] Comment on above: Performed By: #### 2 [id number] #### [facility] [address] [place] [address] Bilirubin.direct [Mass/Vol] 0.1 mg/dL Normal 0.0-0.4 [facility] Comment on above: Performed By: #### 2 [id number] #### [facility] [address] [place] [address] Bilirubin.indirect [Mass or moles/Vol] 0.4 mg/dL Normal 0.1-0.9 [facility] Comment on above: Performed By: #### 2 [id number] #### [facility] [address] [place] [address] Globulin (S) [Mass/Vol] 4.0 g/dL Normal 1.4-4.0 [facility] Comment on above: Performed By: #### 2 [id number] #### [facility] [address] [place] [address] Protein [Mass/Vol] 8.2 g/dL High 6.0-7.8 [facility] Comment on above: Performed By: #### 2 [id number] #### [facility] [address] [place] [address] Lactic Acidon 03-04-2024 Lactic Acid Lvl 1.3 mmol/L Normal 0.5-2.2 [facility] Comment on above: Performed By: #### 2 [id number] #### [facility] [address] [place] [address] Lipase Levelon 03-04-2024 Lipase [Catalytic activity/Vol] 9 U/L Low 13-58 [facility] Comment on above: Performed By: #### 2 [id number] #### [facility] [address] [place] [address] UA with Cult Rflxon 03-04-20 Type of Urine collection method Clean Catch Normal [facility] Comment on above: Performed By: #### 4 [id number] #### [facility] [address] [place] [address] eGFRon 03-04-2024 eGFR 113 mL/min/1.73 m2 Normal >=59 [facility] Comment on above: Order Comment: Order added by Discern Expert. Performed By: #### 1 [id number] #### [facility] [address] [place] [address] eGFR 113 mL/min/1.73 m2 Normal >=59 [facility] Comment on above: Order Comment: Order added by Discern Expert. Performed By: #### 1 [id number] #### [facility] [address] [place] [address] Inpatient Clinical Summaryon 08-23-2023 Inpatient Clinical Summary [address] [address] Clinical Summary Person Information: Name: CHRISTIAN SHELBY Age: 47 Years : 1975 Sex: Male PCP: Baljit Bryant DO Marital Status: Phone: [phone] Race: White Ethnicity: Non- or Language: Serbian Visit Id: Visit Reason: Nausea; Abdominal pain; HERNIA Speciality: Acuity: Enc Type: Observation Med Service: Medical Arrival: 08/13/2023 18:32:38 Discharge: 08/14/2023 14:02:02 Dispo Type: Home (Routine DC) Address: [address] [place] [id number] Provider Notes: Diagnosis: 1:Abdominal hernia Problems Active Scrotal abscess Left groin mass Abdominal hernia Recurrent scrotal infection Anxiety Smoker Morbid obesity Type II diabetes mellitus Smoking Status: Former Smoker Functional Status: Sensory Deficits: History of Falls: Mobility Assistance Prior to Admission: ADLs: Independent Current Level of Assistance for Self-Care/Mobility: Cognitive Status: Oriented x 3 Allergies No Known Medication Allergies Measurements: Height: 185.42 cm Weight: 194.1 kg Blood Pressure: 189 mmHg / 105 mmHg BMI: 56.46 kg/m2 Procedures No Procedures Documented Immunizations No Immunizations Documented This Visit Final Med List: atorvastatin (atorvastatin 20 mg Tab) every day. busPIRone (busPIRone 5 mg Tab) By Mouth 2 times a day. glimepiride (glimepiride 4 mg Tab) By Mouth every day. losartan (losartan 25 mg Tab) By Mouth every day. metformin (metformin 1000 mg oral tablet, extended release) By Mouth every day. minocycline (minocycline 100 mg Cap) By Mouth every 12 hours. oxybutynin (oxybutynin 5 mg ER Tab) every day. tirzepatide (Mounjaro 5 mg/0.5 mL subcutaneous solution) venlafaxine (venlafaxine 75 mg Cap-ER) By Mouth every day. Care Team Members: Attending Physician: Amparo MARTINEZ, Alesha Wray Consulting Physician: Referring Physician: Follow up: With: Address: When: [facility] [address] [place] [address] Business (1) With: Address: When: trauma clinic [address] [place] [address] 3, second floor, [address] [place] [phone] , only if needed Comments: Please call to make follow up appointment if you have questions or concerns. Our office has placed a referral to the bariatric clinic at [facility], if you do not hear from [facility] please contact this office and we can help facilitate scheduling an appointment. Patient Education Information: Hernia, Adult Normal [facility] Patient Education - Texton 1 10-24-2022 Patient Education - Text Gastroenterology Hernia, Adult A hernia is the bulging of an organ or tissue through a weak spot in the muscles of the abdomen. Hernias develop most often near the belly button (navel) or the area where the leg meets the lower abdomen (groin). Common types of hernias include: ? Incisional hernia. This type bulges through a scar from an abdominal surgery. ? Umbilical hernia. This type develops near the navel. ? Inguinal hernia. This type develops in the groin or scrotum. ? Femoral hernia. This type develops below the groin, in the upper thigh area. ? Hiatal hernia. This type occurs when part of the stomach slides above the muscle that separates the abdomen from the chest (diaphragm). What are the causes? This condition may be caused by: ? Heavy lifting. ? Coughing over a long period of time. ? Straining to have a bowel movement. Constipation can lead to straining. ? An incision made during abdominal surgery. ? A physical problem that is present at (congenital defect). ? Being overweight or obese. ? Smoking. ? Excess fluid in the abdomen. ? Undescended testicles in males. What are the signs or symptoms? The main symptom is a skin-colored, rounded bulge in the area of the hernia. However, a bulge may not always be present. It may grow bigger or be more visible when you cough or strain (such as when lifting something heavy). A hernia that can be pushed back into the abdomen (is reducible) rarely causes pain. A hernia that cannot be pushed back into the abdomen (is incarcerated) may lose its blood supply (become strangulated). A hernia that is incarcerated may cause: ? Pain. ? Fever. ? Nausea and vomiting. ? Swelling. ? Constipation. How is this diagnosed? A hernia may be diagnosed based on: ? Your symptoms and medical history. ? A physical exam. Your health care provider may ask you to cough or move in certain ways to see if the hernia becomes visible. ? Imaging tests, such as: ? X-rays. ? Ultrasound. ? CT scan. How is this treated? A hernia that is small and painless may not need to be treated. A hernia that is large or painful may be treated with surgery. Inguinal hernias may be treated with surgery to prevent incarceration or strangulation. Strangulated hernias are always treated with surgery because the strangulation causes a lack of blood supply to the trapped organ or tissue. Surgery to treat a hernia involves pushing the bulge back into place and repairing the weak area of the muscle or abdominal wall. Follow these instructions at home: Activity ? Avoid straining. ? Do not lift anything that is heavier than 10 lb (4.5 kg), or the limit that you are told, until your health care provider says that it is safe. ? When lifting heavy objects, lift with your leg muscles, not your back muscles. Preventing constipation Take actions to prevent constipation. Constipation leads to straining with bowel movements, which can make a hernia worse or cause a hernia repair to break down. Your health care provider may recommend that you take these actions to prevent or treat constipation: ? Drink enough fluid to keep your urine pale yellow. ? Take bxuh-ohh-vwgnopy or prescription medicines. ? Eat foods that are high in fiber, such as beans, whole grains, and fresh fruits and vegetables. ? Limit foods that are high in fat and processed sugars, such as fried or sweet foods. General instructions ? When coughing, try to cough gently. ? You may try to push the hernia back in place by very gently pressing on it while lying down. Do not try to force the bulge back in if it will not push in easily. ? If you are overweight, work with your health care provider to lose weight safely. ? Do not use any products that contain nicotine or tobacco. These products include cigarettes, chewing tobacco, and vaping devices, such as e-cigarettes. If you need help quitting, ask your health care provider. ? If you are scheduled for hernia repair, watch your hernia for any changes in shape, size, or color. Tell your health care provider about any changes or new symptoms. ? Take mwev-pkj-okcqkxx and prescription medicines only as told by your health care provider. ? Keep all follow-up visits. This is important. Contact a health care provider if: ? You develop new pain, swelling, or redness around your hernia. ? You have signs of constipation, such as: ? Fewer bowel movements in a week than normal. ? Difficulty having a bowel movement. ? Stools that are dry, hard, or larger than normal. Get help right away if: ? You have a fever or chills. ? You have abdominal pain that gets worse. ? You feel nauseous or you vomit. ? You cannot push the hernia back in place by very gently pressing on it while lying down. Do not try to force the bulge back in if it will not go in easily. ? The hernia: ? Changes in shape, size, or color. ? Feels hard (more content not included)... Normal [facility] Discharge Instructionson Discharge Instructions [id number] Normal [facility] Auto Diffon 08-14-2023 Basophils/100 WBC (Bld) 0.2 % Normal 0.0-2.0 [facility] Comment on above: Order Comment: Order Added by Discern Expert. Performed By: #### 1 [id number], [id number], 3126031, [id number] ####[place] [address] [place] [address] Basophils/Leukocytes Auto (Bld) [Pure # fraction] 0.0 E9/L Normal 0.0-0.2 [facility] Comment on above: Order Comment: Order Added by Discern Expert. Performed By: #### 1 [id number], 4896098, 8832739, 5207200 ####[address] [address] Eosinophils/100 WBC (Bld) 0.2 % Normal 0.0-8.0 [facility] Comment on above: Order Comment: Order Added by Discern Expert. Performed By: #### 1 4941424, 9895622, 6221290, 4847781 ####[address] [address] Eosinophils/Leukocyt es Auto (Bld) [Pure # fraction] 0.0 E9/L Normal 0.0-0.5 [facility] Comment on above: Order Comment: Order Added by Discern Expert. Performed By: #### 1 0745875, 8346643, 0599633, 7078693 ####[address] [address] Lymphocytes/100 WBC (Bld) 13.3 % Low 14.0-50.0 [facility] Comment on above: Order Comment: Order Added by Discern Expert. Performed By: #### 1 0002364, 1085477, 0687947, 9339662 ####[address] [address] Lymphocytes/Leukocyt es Auto (Bld) [Pure # fraction] 1.8 E9/L Normal 1.0-4.0 [facility] Comment on above: Order Comment: Order Added by Discern Expert. Performed By: #### 1 7214399, 6704206, 0947991, 8917040 ####[address] [address] Monocytes/100 WBC (Bld) 10.0 % Normal 4.0-14.0 [facility] Comment on above: Order Comment: Order Added by Discern Expert. Performed By: #### 1 6558670, 5586298, 2163490, 2414896 ####[place] [address] [place] [address] Monocytes/Leukocytes Auto (Bld) [Pure # fraction] 1.3 E9/L High 0.2-1.0 [facility] Comment on above: Order Comment: Order Added by Discern Expert. Performed By: #### 1 4106777, 0613692, 8555998, 4507735 ####[address] [address] Neutrophils/100 WBC (Bld) 76.3 % High 36.0-75.0 [facility] Comment on above: Order Comment: Order Added by Discern Expert. Performed By: #### 1 9581031, 8815945, 7632145, 6439731 ####[address] [address] Neutrophils/Leukocyt es Auto (Bld) [Pure # fraction] 10.2 E9/L High 2.0-7.5 [facility] Comment on above: Order Comment: Order Added by Discern Expert. Performed By: #### 1 4051578, 8920942, 8770977, 3534854 ####[address] [address] BMPon 08-14-2023 Anion gap [Moles/Vol] 10 mmol/L Normal 6-16 [facility] Comment on above: Performed By: #### 1 6083527, 7219253, 8321912, 6953000 ####[place] [address] [place] [address] Calcium [Mass/Vol] 8.2 mg/dL Low 8.9-11.1 [facility] Comment on above: Performed By: #### 1 1055350, 6259965, 2186340, 1724605 ####[place] [address] [place] [address] Chloride [Moles/Vol] 105 mmol/L Normal 101-111 [facility] Comment on above: Performed By: #### 1 8527656, 0312923, 3443214, 3566283 ####[facility] [address] [place] [address] CO2 [Moles/Vol] 23 mmol/L Normal 21-31 [facility] Comment on above: Performed By: #### 1 3412653, 7158546, 4907387, 6720745 ####[facility] [address] [place] [address] Creatinine [Mass/Vol] 0.7 mg/dL Normal 0.5-1.3 [facility] Comment on above: Performed By: #### 1 7154744, 9623203, 5713368, 1949819 ####[facility] [address] [place] [address] Glucose [Mass/Vol] 266 mg/dL High 55-199 [facility] Comment on above: Result Comment: If t his glucose result represents a fasting glucose, interpretation should refer to the following reference range: 55-99 mg/dL Performed By: #### 1 8537792, 5345188, 7431286, 2477673 ####[facility] [address] [place] [address] Potassium [Moles/Vol] 3.4 mmol/L Low 3.5-5.3 [facility] Comment on above: Performed By: #### 1 0633982, 4743247, 6751814, 1484761 ####[facility] [address] [place] [address] Sodium [Moles/Vol] 135 mmol/L Normal 135-145 [facility] Comment on above: Performed By: #### 1 8356169, 4690850, 7377945, 2783053 ####[facility] [address] [place] [address] Urea nitrogen [Mass/Vol] 13 mg/dL Normal 5-21 [facility] Comment on above: Performed By: #### 1 1929993, 3016973, 4135239, 0320056 ####[facility] [address] [place] [address] Urea nitrogen/Creatinine [Mass ratio] 19 No Units Normal 10-20 [facility] Comment on above: Performed By: #### 1 6841401, 1420078, 9632258, 1700193 ####[facility] [address] [place] [address] CBC w/ Auto Diffon 3 Erythrocyte distribution width (RBC) [Ratio] 15.0 % High 10.9-14.2 [facility] Comment on above: Performed By: #### 1 1741464, 0339365, 4848573, 1801089 ####[place] [address] [place] [address] Hematocrit (Bld) [Volume fraction] 41.0 % Normal 37.7-49.0 [facility] Comment on above: Performed By: #### 1 8826367, 4148387, 2994068, 3543543 ####[facility] [address] [place] [address] Hemoglobin (Bld) [Mass/Vol] 13.7 g/dL Normal 13.5-17.5 [facility] Comment on above: Performed By: #### 1 2328023, 2799317, 5435009, 7048627 ####[facility] [address] [place] [address] MCH (RBC) [Entitic mass] 28.0 pg Normal 27.0-34.0 [facility] Comment on above: Performed By: #### 1 0742456, 7026091, 8792144, 4726117 ####[facility] [address] [place] [address] MCHC (RBC) [Mass/Vol] 33.4 g/dL Normal 31.4-36.0 [facility] Comment on above: Performed By: #### 1 9758634, 9971461, 1719611, 3361180 ####[address] [address] MCV (RBC) [Entitic vol] 83.8 fL Normal 80.0-100.0 [facility] Comment on above: Performed By: #### 1 6613885, 5128769, 9856041, [id number] ####[facility] [address] [place] [address] Platelet mean volume (Bld) [Entitic vol] 7.2 fL Normal 6.4-10.8 [facility] Comment on above: Performed By: #### 1 [id number], 6073631, 2200708, 2653979 ####[place] [address] Platelets (Bld) [#/Vol] 289.0 E9/L Normal 150.0-500. 0 [facility] Comment on above: Performed By: #### 1 0194179, 6993005, 8696760, 9061226 ####[address] [address] RBC (Bld) [#/Vol] 4.9 E12/L Normal 4.3-5.9 [facility] Comment on above: Performed By: #### 1 2873636, 8847709, 1909536, 6763671 ####[place] [id number] WBC corrected for nucl RBC Auto (Bld) [#/Vol] 13.3 E9/L High 4.0-11.0 [facility] Comment on above: Performed By: #### 1 0779134, 3480016, 5453295, 2016245 ####[address] [address] [address] Abdomen/Pelvis w/ Contras ton 08-14-2023 CT Abdomen/Pelvis w/ Contrast Exam Date/Time: 08/13/2023 20:46 EST Reason for Exam: Abdominal pain, acute, nonlocalized;Other (please specify) Report IMPRESSION: THERE ARE MULTIPLE CYSTS OF SMALL BOWEL CONTAINED WITHIN A LARGE UMBILICAL HERNIA IS SUSPECTED TOWARDS THE LEFT WITH MILD DILATATION AND SURROUNDING STRANDING CONSISTENT WITH A PARTIAL SMALL BOWEL OBSTRUCTION WITHIN THE HERNIA CLINICAL HISTORY: Abdominal pain, acute, nonlocalized COMPARISON: NONE. FINDINGS: All CT scans at this facility use dose modulation, iterative reconstruction, and/or weight based dosing when appropriate to reduce radiation dose to as low as reasonably achievable. IMPRESSION: EXAMINATION: CT Abdomen/Pelvis w/ Contrast HISTORY: Abdominal pain, acute, nonlocalized TECHNIQUE: Contiguous axial CT sections of the abdomen and pelvis were obtained after IV contrast administration of 100 mL of Iopamidol, Isovue-300. Sagittal and coronal reformats have been obtained. All CT scans at this facility use dose modulation, iterative reconstruction, and/or weight based dosing when appropriate to reduce radiation dose to as low as reasonably achievable. COMPARISON: None FINDINGS Lung bases:Visualized lung bases show no significant pathology Liver: The liver is normal in size and enhancement. There are no focal solid or cystic lesions. There is no intra or extrahepatic bile duct dilatation. Gallbladder: No calcified gallstones. Normal gallbladder wall. No pericholecystic fluid. Spleen: There are no focal lesions or calcifications in the spleen. There is no splenomegaly Pancreas: The pancreas is normal in size and attenuation without focal lesions or dilatation of the pancreatic duct. Adrenal glands are negative. Report Kidneys: There are no solid renal lesions. There are prompt bilateral nephrograms after IV contrast administration with prompt excretion into nondilated collecting systems. There is no hydroureter. Bowel: There is a large umbilical hernia asymmetric towards the left side with a maximum diameter approximately 13 x 17 cm. The hernia extends outside the jrrxe-hj-dtdg is an incompletely imaged on the current study. There are multiple loops of small bowel within the hernia which demonstrate fluid levels and have a maximum diameter of 3.9 cm. There is stranding of the mesentery versus small amount of fluid within. The appendix is unremarkable. Nodes: No lymphadenopathy. Aorta: There is no abdominal aortic aneurysm. Peritoneum: No free fluid or free air. Pelvis: There are no solid or cystic lesions. The urinary bladder is within normal limits. Bones :There are no acute osseous changes. Soft tissues: The soft tissues are unremarkable. Ordering Provider: Baljit Moyer FINAL REPORT Dictated: 08/14/2023 7:55 am Rodolfo Davis MD, V. Signed (Electronic Signature): 08/14/2023 7:55 am Signed by: Rodolfo Davis MD, V. Transcribed by: SHERIF Technologist: JANETTE Technical Comments GFR (mL/min/1/73m2) 106 Contrast: Isovue 300 Contrast amount in ml's: 100 Normal [facility] Capillary Glucose POCon Glucose [Mass/Vol] 231 mg/dL High [facility] Comment on above: Result Comment: Tisha didier Meter Performed By: #### 2 [id number] ####[facility] [address] [place] [address] Glucose [Mass/Vol] 231 mg/dL High [facility] Comment on above: Result Comment: Tisha didier Meter Performed By: #### 2 [id number] ####[facility] [address] [place] [address] ED Clinical Summaryon 2022 ED Clinical Summary (Inserted Image. Angella ble to display) [address] [address] ED Clinical Summary Person Information Name: CHRISTIAN SHELBY [facility]de [facility] Age: 47 Years : 1975 Sex: Male Language: Serbian PCP: Baljit Bryant DO Marital Status: Phone: [phone] Visit Id: Visit Reason: Nausea; Abdominal pain; HERNIA Speciality: Acuity: 2 Enc Type: Observation Med Service: Emergency Arrival: 08/13/2023 18:32:38 Discharge: LOS: 000 09:22 Checkin: 08/13/2023 18:32:38 Checkout: Dispo Type: EVENTS: Event Name Event Status Request Date/Time Start Date/Time Complete Date/Time Arrive Complete 08/13/2023 18:32:38 08/13/2023 18:32:38 08/13/2023 18:32:38 Document Home Meds Request 08/13/2023 18:32:38 Triage Complete 08/13/2023 18:32:38 08/13/2023 18:44:30 08/13/2023 18:44:30 Bed Assign Complete 08/13/2023 18:36:46 08/13/2023 18:36:46 08/13/2023 18:36:46 Dr Exam Complete 08/13/2023 18:36:46 08/13/2023 18:55:46 08/13/2023 18:55:46 RN Exam Complete 08/13/2023 18:36:46 08/13/2023 19:34:17 08/13/2023 19:34:17 Meds Admin Complete 08/13/2023 18:45:44 08/13/2023 19:05:50 Pending Labs Complete 08/13/2023 18:45:44 08/13/2023 19:35:23 Lab Complete 08/13/2023 18:45:44 08/13/2023 19:27:09 CT Complete 08/13/2023 18:45:44 08/13/2023 20:12:29 08/13/2023 20:46:22 Registration Complete 08/13/2023 18:55:46 08/13/2023 19:05:36 08/13/2023 19:05:36 Dr Exam Complete 08/13/2023 18:56:49 08/13/2023 18:56:49 08/13/2023 18:56:49 Pending Labs Complete 08/13/2023 19:05:03 08/13/2023 19:05:03 08/13/2023 19:27:10 Lab Complete 08/13/2023 19:05:03 08/13/2023 19:05:03 08/13/2023 19:27:10 Reg Complete Request 08/13/2023 19:05:36 Reg Bed Request Complete 08/13/2023 19:05:36 08/13/2023 19:05:36 08/13/2023 19:05:36 Pending Labs Complete 08/13/2023 19:08:51 08/13/2023 19:08:51 08/13/2023 19:08:58 Lab Complete 08/13/2023 19:08:51 08/13/2023 19:08:51 08/13/2023 19:08:58 Possible SIRS Request 08/13/2023 19:10:53 Pending Labs Complete 08/13/2023 19:26:36 08/13/2023 23:28:25 Lab Complete 08/13/2023 19:26:36 08/13/2023 23:28:25 Possible Sepsis Request 08/13/2023 19:31:06 Meds Admin Request 08/13/2023 19:40:32 Pending Labs Inlab 08/13/2023 19:48:54 RT Tx/ABG Complete 08/13/2023 19:48:54 08/13/2023 21:09:18 08/13/2023 21:09:18 Lab Inlab 08/13/2023 19:48:54 Dr Exam Complete 08/13/2023 19:58:48 08/13/2023 19:58:48 08/13/2023 19:58:48 Registration Complete 08/13/2023 19:58:48 08/13/2023 21:31:04 08/13/2023 21:31:04 Pending Labs Cancel 08/13/2023 20:01:37 08/13/2023 20:01:37 08/13/2023 20:06:17 Pending Labs Complete 08/13/2023 20:06:45 08/13/2023 20:45:51 Patient Care Request 08/13/2023 21:31:04 Patient Care Request 08/13/2023 21:31:04 Patient Care Request 08/13/2023 21:31:05 Patient Care Request 08/13/2023 21:31:05 Patient Care Request 08/13/2023 21:43:10 Pending Labs Request 08/13/2023 21:43:10 Lab Request 08/13/2023 21:43:10 Meds Admin Request 08/13/2023 21:43:10 Bed Request Request 08/13/2023 21:43:10 Reg Bed Request Complete 08/13/2023 21:43:10 08/14/2023 00:33:32 08/14/2023 00:33:32 Admit Complete 08/13/2023 21:43:10 08/14/2023 02:43:28 08/14/2023 02:43:28 Meds Admin Request 08/13/2023 21:47:05 Patient Care Request 08/13/2023 21:47:05 Pending Labs Complete 08/13/2023 22:16:29 08/13/2023 22:16:29 08/13/2023 22:16:29 Meds Admin Request 08/13/2023 23:05:15 Pending Labs Complete 08/14/2023 00:27:34 08/14/2023 00:27:34 08/14/2023 00:27:35 Patient Care Request 08/14/2023 03:46:42 ADDRESS: [facility] [place] [phone] PHYS DOC NOTES: MEDICAL INFORMATION: Prescriptions Given: PATIENT EDUCATION INFORMATION: Instructions: Follow up: DIAGNOSIS: 1:Abdominal hernia Normal [facility] ED Patient Education Noteon 08-14-2023 ED Patient Education Note Normal [facility] ED Patient Summaryon 023 ED Patient Summary (Inserted Image. Angella ble to display) [place] [id number] Patient Discharge Instructions Person Information Name: CHRISTIAN SHELBY Age: 47 Years Arrival Date: 08/13/2023 18:32:38 Discharge Diagnosis: 1:Abdominal hernia Primary Care Physician: Baljit Bryant DO Provider Information Primary Provider: Joshua Starr DO Advanced Safety Teacher:Baljit Moyer PA-C The exam and treatment you received in the Emergency Department were for an urgent problem and are not intended as complete care. It is important that you follow up with a doctor, nurse practitioner, or physician?s recreation assistant for ongoing care. If your symptoms become worse or you do not improve as expected and you are unable to reach your usual health care provider, you should return to the Emergency Department. We are available 24 hours a day. CHRISTIAN SHELBY has been given the following list of patient education materials, prescriptions and follow-up instructions: Follow-up Instructions: In the event that this physician does not participate in your insurance network, please consult with your insurance company to find a nearby participating provider. Patient Education Materials: A MESSAGE TO ALL PATIENTS REGARDING OPIOIDS PRESCRIPTION OPIOIDS: WHAT YOU NEED TO KNOW Prescription opioids can be used to help relieve nlterdzu-hp-oqekua pain and are often prescribed following a surgery or injury, or for certain health conditions. These medications can be an important part of the treatment but also come with serious risks. It is important to work with your healthcare provider to make sure you are getting the safest, most effective care. WHAT ARE THE RISKS AND SIDE EFFECTS OF OPIOID USE? Prescription opioids carry serious risks of addiction and overdose, especially with prolonged use. An opioid overdose, often marked by slowed breathing, can cause sudden . The use of prescription opioids can have a number of side effects as well, even when taken as directed: ? Tolerance?meaning you might need to take more of the medication for the same pain relief ? Physical dependence?meaning you have symptoms of withdrawal when a medication is stopped ? Increased sensitivity to pain ? Constipation ? Nausea, vomiting, and dry mouth ? Sleepiness and dizziness ? Confusion ? Depression ? Low levels of testosterone that can result in lower sex drive, energy, and strength ? Itching and sweating RISKS ARE GREATER WITH: ? History of drug misuse, substance use disorder, or overdose ? Mental health conditions (such as depression or anxiety) ? Sleep apnea ? Older age (65 years and older) ? Avoid alcohol while taking prescription opioids. Also, unless specifically advised by your health care provider, medications to avoid include: ? Benzodiazepines (such as Xanax or Valium) ? Muscle relaxants (such as Soma or Flexeril) ? Hypnotics (such as Ambien or Lunesta) ? Other prescription opioids KNOW YOUR OPTIONS Talk to your health care provider about ways to manage your pain that don?t involve prescription opioids. Some of these options may actually work better and have fewer risks and side effects. Options may include: ? Pain relievers such as acetaminophen, ibuprofen, and naproxen ? Some medication that are also used for depression or seizures ? Physical therapy and exercise ? Cognitive behavioral therapy, a psychological, goal-directed approach, in which patients learn how to modify physical, behavioral, and emotional triggers of pain and stress. IF YOU ARE PRESCRIBED OPIOIDS FOR PAIN: ? Never take opioids in greater amounts or more often than prescribed. ? Follow up with your primary health care provider. o Work together to create a plan on how to manage your pain. o Talk about ways to help manage your pain that don?t involve prescription opioids. o Talk about any and all concerns and side effects. ? Help prevent misuse and abuse o Never sell or share prescription opioids. o Never use another person?s prescription opioids. ? Store prescription opioids in a secure place and out of reach of others (this may include visitors, children, friends, and family). ? Safely dispose of unused prescription opioids: Find your community drug take-back program or your pharmacy mail-back program, or flush them down the toilet, following guidance from the Food and Drug Administration (www.fda.gov/Drugs/Resources ForYou). ? Visit www.cdc.gov/drugoverdose to learn about the risks of opioids abuse and overdose. ? If you believe you may be struggling with addiction, tell your health career consultant and ask for guidance or call [facility]?S National Helpline at 3-628-518-AWAI. n Source: US Department of Health and Human Services/Center for Disease Control & Prevention [facility] Medications Given: Medication Dose Route S (more content not included)... Normal [facility] Inpatient Patient Summaryon 08-14-2023 Inpatient Patient Summary CHRISTIAN SHELBY :1975 Visit Date:08/13/2023 Inpatient Discharge Instructions Your Care Team Admitting Physician - Amparo MARTINEZ, Alesha Wray Reason for Your Visit Abdominal hernia Your Diagnosis Abdominal hernia Abdominal pain Nausea Tests Performed Automated Diff Beta-hydroxybutyrate Blood Culture Charcoal -- Results Pending -- Blood Gas Myron BMP Capillary Glucose POC CBC w/ Auto Diff eGFR Hepatic Function Panel Lactic Acid Lipase Level PT & PTT CT Abdomen/Pelvis w/ Contrast Please visit your patient portal for your results or contact your primary care physician. This Is Your Medications List atorvastatin (atorvastatin 20 mg Tab) busPIRone (busPIRone 5 mg Tab) glimepiride (glimepiride 4 mg Tab) losartan (losartan 25 mg Tab) metformin (metformin 1000 mg oral tablet, extended release) minocycline (minocycline 100 mg Cap) oxybutynin (oxybutynin 5 mg ER Tab) tirzepatide (Mounjaro 5 mg/0.5 mL subcutaneous solution) venlafaxine (venlafaxine 75 mg Cap-ER) [Image Removed: STOP]Stop taking these medications amoxicillin-clavulanate (amoxicillin-clavulanate 875 mg-125 mg Tab) cephalexin (Keflex 500 mg Cap) sulfamethoxazole-trimethopri m (sulfamethoxazole-trimethopr im 800 mg-160 mg Tab) Procedure History Drainage of scrotal abscess (03/21/2016), Tonsillectomy. Discharge Vitals Temperature (Axillary) 36.7 ?C Heart Rate (Monitored) 82 Respiratory Rate 15 Blood Pressure 189/105 Height 185.42 cm Weight 194.1 kg BMI 56.46 What to do next Instructions From Your Doctor Event Name Event Result Pending Diagnostic Test Results None Pharmacy Information Other: [facility] New Follow Up Appointments after Discharge Follow Up with trauma clinic When: Only if needed Comments: Please call to make follow up appointment if you have questions or concerns. Our office has placed a referral to the bariatric clinic at [facility], if you do not hear from [facility] please contact this office and we can help facilitate scheduling an appointment. Where: [address] [place] [address] 3, second floor, [address] [place] [address]- [phone] Medications What How Much When Instructions Next Dose Unchanged atorvastatin (atorvastatin 20 mg Tab) Every day Unchanged busPIRone (busPIRone 5 mg Tab) 2 times a day Unchanged glimepiride (glimepiride 4 mg Tab) Every day Unchanged losartan (losartan 25 mg Tab) Every day Unchanged metformin (metformin 1000 mg oral tablet, extended release) Every day Unchanged minocycline (minocycline 100 mg Cap) Every 12 hours Unchanged oxybutynin (oxybutynin 5 mg ER Tab) Every day Unchanged tirzepatide (Mounjaro 5 mg/ 0.5 mL subcutaneous solution) Unchanged venlafaxine (venlafaxine 75 mg Cap-ER) Every day What How Much When Comments Stop Taking amoxicillin-clavulanate (amoxicillin-clavulanate 875 mg-125 mg Tab) Stop Taking cephalexin (Keflex 500 mg Cap) 1 Capsules By Mouth Every 12 hours Stop Taking sulfamethoxazole-trimethopri m (sulfamethoxazole-trimethopr im 800 mg-160 mg Tab) 1 Tablets By Mouth 2 times a day Test Results CBC BMP WBC: 13.3 E9/L High (08/14/23 06:46:00) Glucose Lvl: 266 mg/dL High (08/14/23 06:46:00) RBC: 4.9 E12/L (08/14/23 06:46:00) BUN: 13 mg/dL (08/14/23 06:46:00) HGB: 13.7 gm/dL (08/14/23 06:46:00) Creatinine: 0.7 mg/dL (08/14/23:46:00) Hct: 41 % (08/14/23:46:00) BUN/Creat Ratio: 19 (08/14/23:46:00) MCV: 83.8 fL (08/14/23:46:00) Sodium Lvl: 135 mmol/L (08/14/23:46:00) MCH: 28 pg (08/14/23:46:00) Potassium Lvl: 3.4 mmol/L Low (08/14/23:46:00) MCHC: 33.4 gm/dL (08/14/23:46:00) Chloride: 105 mmol/L (08/14/23:46:00) RDW: 15 % High (08/14/23:46:00) CO2: 23 mmol/L (08/14/23:46:00) Platelet: 289 E9/L (08/14/23:46:00) AGAP: 10 mEq/L (08/14/23:46:00) MPV: 7.2 fL (08/14/23:46:00) Calcium Lvl: 8.2 mg/dL Low (08/14/23:46:00) Allergies No Known Medication Allergies Problems Ongoing - Any problem that you are currently receiving treatment for. Abdominal hernia Anxiety Left groin mass Morbid obesity Recurrent scrotal infection Scrotal abscess Smoker Type II diabetes mellitus Education Materials Hernia, Adult A hernia is the bulging of an organ or tissue through a weak spot in the muscles of the abdomen. Hernias develop most often near the belly button (navel) or the area where the leg meets the lower abdomen (groin). Common types of hernias include: ? Incisional hernia. This type bulges through a scar from an abdominal surgery. ? Umbilical hernia. This type develops near the navel. ? Inguinal hernia. This type develops in the groin or scrotum. ? Femoral hernia. This type develops below the groin, in the upper thigh area. ? Hiatal hernia. This type occurs when part of the stomach slides above the mu (more content not included)... Normal [facility] Insurance Correspondence Off iceon 12-06-2023 Insurance Correspondence Office [id number]#1.00TIFF Normal [facility] Insurance Correspondence Office [id number]#1.00TIFF Normal [facility] Lactic Acidon 08-14-2023 Lactate [Mass/Vol] 1.1 mmol/L Normal 0.5-2.2 [facility] Comment on above: Performed By: #### 2 [id number] ####[facility] [address] [place] [address] eGFRon 08-14-2023 GFR/1.73 sq M.predicted among non-blacks MDRD (S/P/Bld) [Vol rate/Area] 114 mL/min/1.73 m2 Normal >=59 [facility] Comment on above: Order Comment: Order added by Discern Expert. Result Comment: Yarn Conditioner dawson kidney disease could be indicated at eGFR's of less than 60 mL/min/1.73m2. Kidney failure is indicated at less than 15 mL/min/1.73m2. Performed By: #### 1 [id number], 5310987, 1060262, 3185001 ####[facility] [address] [place] [address] Auto Diffon 08-13-2023 Basophils/100 WBC (Bld) 0.1 % Normal 0.0-2.0 [facility] Comment on above: Order Comment: Order Added by Discern Expert. Performed By: #### 2 435641, 22028785, 2224552, 4306655, 59600420, 8603678, 3495948, 6295433 ####[facility] [address] [place] [address] Basophils/Leukocytes Auto (Bld) [Pure # fraction] 0.0 E9/L Normal 0.0-0.2 [facility] Comment on above: Order Comment: Order Added by Discern Expert. Performed By: #### 2 557157, 94793752, 9427930, 6262802, 70924585, 7951519, 7561699, 6548313 ####[place] [address] [place] [address] Eosinophils/100 WBC (Bld) 0.1 % Normal 0.0-8.0 [facility] Comment on above: Order Comment: Order Added by Discern Expert. Performed By: #### 2 681304, 83468563, 6143382, 0076073, 54834711, 8695838, 2737398, 4366870 ####[address] [address] Eosinophils/Leukocyt es Auto (Bld) [Pure # fraction] 0.0 E9/L Normal 0.0-0.5 [facility] Comment on above: Order Comment: Order Added by Discern Expert. Performed By: #### 2 818213, 32706941, 9890087, 8436717, 28613783, 0554991, 4510953, 5071025 ####[address] [address] Lymphocytes/100 WBC (Bld) 10.7 % Low 14.0-50.0 [facility] Comment on above: Order Comment: Order Added by Discern Expert. Performed By: #### 2 031630, 57182037, 6549585, 9762694, 85570271, 6830945, 0807443, 9165765 ####[address] [address] Lymphocytes/Leukocyt es Auto (Bld) [Pure # fraction] 1.7 E9/L Normal 1.0-4.0 [facility] Comment on above: Order Comment: Order Added by Discern Expert. Performed By: #### 2 743823, 65763373, 1422663, 6813976, 10836675, 3629807, 1608364, 9126862 ####[address] [address] Monocytes/100 WBC (Bld) 7.5 % Normal 4.0-14.0 [facility] Comment on above: Order Comment: Order Added by Discern Expert. Performed By: #### 2 310555, 68465959, 5767204, 8242326, 83008671, 3063567, 3099074, 6777741 ####[facility] [address] [place] [address] Monocytes/Leukocytes Auto (Bld) [Pure # fraction] 1.2 E9/L High 0.2-1.0 [facility] Comment on above: Order Comment: Order Added by Discern Expert. Performed By: #### 2 850699, 26778147, 6196475, 8777335, 44317779, 4330643, 2483896, 6497830 ####[place] [address] [place] [address] Neutrophils/100 WBC (Bld) 81.6 % High 36.0-75.0 [facility] Comment on above: Order Comment: Order Added by Discern Expert. Performed By: #### 2 599357, 36340886, 0858359, 0616205, 40185566, 1626761, 9863629, 3708016 ####[place] [address] [place] [address] Neutrophils/Leukocyt es Auto (Bld) [Pure # fraction] 12.8 E9/L High 2.0-7.5 [facility] Comment on above: Order Comment: Order Added by Discern Expert. Performed By: #### 2 821808, 34529618, 7189325, 4534928, 74566504, 9657004, 0672751, 1101672 ####[facility] [address] [place] [address] BMPon 08-13-2023 Creatinine [Mass/Vol] 0.9 mg/dL Normal 0.5-1.3 [facility] Comment on above: Performed By: #### 2 627371, 53997512, 3057527, 4850262, 02718590, 0780826, 6422773, 2794378 ####[facility] [address] [place] [address] Urea nitrogen [Mass/Vol] 12 mg/dL Normal 5-21 [facility] Comment on above: Performed By: #### 2 862004, 83415028, 5279285, 4213593, 68553382, 2601027, 4447080, 8996808 ####[facility] [address] [place] [address] Urea nitrogen/Creatinine [Mass ratio] 13 No Units Normal 10-20 [facility] Comment on above: Performed By: #### 2 540712, 17220229, 2383996, 9412899, 92642530, 6304346, 8440211, 0270195 ####[facility] [address] [place] [address] Anion gap [Moles/Vol] 21 mmol/L High 6-16 [facility] Comment on above: Performed By: #### 2 679575, 24714688, 6585803, 2791381, 45785816, 3316802, 8346076, 0974100 ####[facility] [address] [place] [address] Calcium [Mass/Vol] 9.1 mg/dL Normal 8.9-11.1 [facility] Comment on above: Performed By: #### 2 783355, 26453999, 3117820, 4940420, 25045273, 8420551, 0717310, 4374226 ####[facility] [address] [place] [address] Chloride [Moles/Vol] 98 mmol/L Low 101-111 [facility] Comment on above: Performed By: #### 2 747497, 65707993, 7248446, 2219548, 65792366, 2879237, 1040220, 8072566 ####[facility] [address] [place] [address] CO2 [Moles/Vol] 17 mmol/L Low 21-31 [facility] Comment on above: Performed By: #### 2 343375, 28537786, 0821060, 4551848, 47388654, 1883695, 5476283, 5409430 ####[facility] [address] [place] [address] Glucose [Mass/Vol] 321 mg/dL High 55-199 [facility] Comment on above: Result Comment: If t his glucose result represents a fasting glucose, interpretation should refer to the following reference range: 55-99 mg/dL Performed By: #### 2 093720, 81802832, 4520878, 9316371, 22287061, 9154348, 2900224, [id number] ####[facility] [address] [place] [address] Potassium [Moles/Vol] 3.9 mmol/L Normal 3.5-5.3 [facility] Comment on above: Performed By: #### 2 030197, 22361242, 3541532, 4766259, 90456645, 6850482, 2226119, 8049732 ####[facility] [address] [place] [address] Sodium [Moles/Vol] 132 mmol/L Low 135-145 [facility] Comment on above: Performed By: #### 2 465214, 67029177, 5094425, 4689647, 68652981, 7768174, 9189217, 5862433 ####[facility] [address] [place] [address] [facility] 08-13-2023 Beta hydroxybutyrate [Moles/Vol] 2.78 mmol/L High 0.02-0.27 [facility] Comment on above: Performed By: #### 2 [id number] ####[facility] [address] [place] [address] Bld Gas Venon 08-13-2023 Allens Test Not Applicable Normal [facility] Comment on above: Performed By: #### 1 [id number] ####[facility] [address] [place] [address] Drawn by lab Invalid Interpretation Code [facility] Comment on above: Performed By: #### 1 [id number] ####[facility] [address] [place] [address] FIO2 BG 21 Invalid Interpretation Code [facility] Comment on above: Performed By: #### 1 [id number] ####[facility] [address] [place] [address] pCO2 Myron 31.3 mmHg Low 38.0-50.0 [facility] Comment on above: Performed By: #### 1 6879834 ####[facility] [address] [place] [id number] pH Myron 7.434 High 7.320-7.43 0 [facility] Comment on above: Performed By: #### 1 0594899 ####[facility] [address] [place] [address] Sample Site OTHER Normal [facility] Comment on above: Performed By: #### 1 [id number] ####[place] [id number] Sample Type Venous Draw Normal [facility] Comment on above: Performed By: #### 1 [id number] ####[place] [id number] CBC w/ Auto Diffon 3 Erythrocyte distribution width (RBC) [Ratio] 15.2 % High 10.9-14.2 [facility] Comment on above: Performed By: #### 2 839876, 91046958, 0961840, 9850028, 17052720, 4058349, 3358816, 9873211 ####[facility] [address] [place] [id number] Hematocrit (Bld) [Volume fraction] 49.5 % High 37.7-49.0 [facility] Comment on above: Performed By: #### 2 238341, 43461557, 4118607, 1272547, 10301102, 0752061, 1454198, 4990767 ####[facility] [address] [place] [address] Hemoglobin (Bld) [Mass/Vol] 15.8 g/dL Normal 13.5-17.5 [facility] Comment on above: Performed By: #### 2 568006, 80787651, 5817414, 7126982, 65822211, 3227062, 3455182, 7205188 ####[place] [address] [place] [address] MCH (RBC) [Entitic mass] 27.1 pg Normal 27.0-34.0 [facility] Comment on above: Performed By: #### 2 030719, 31312782, 7060584, 1656053, 24774203, 4371213, 9958431, 3382761 ####[address] [address] MCHC (RBC) [Mass/Vol] 32.0 g/dL Normal 31.4-36.0 [facility] Comment on above: Performed By: #### 2 665364, 44880718, 3499294, 9332264, 12493004, 7375363, 7214297, 5652394 ####[address] [address] MCV (RBC) [Entitic vol] 84.8 fL Normal 80.0-100.0 [facility] Comment on above: Performed By: #### 2 266293, 27503373, 3288695, 9803093, 26311467, 6244666, 4785346, 1162503 ####[address] [address] Platelet mean volume (Bld) [Entitic vol] 7.5 fL Normal 6.4-10.8 [facility] Comment on above: Performed By: #### 2 069806, 96699961, 9594214, 8247578, 47009619, 1353864, 5736206, 6750779 ####[address] [address] Platelets (Bld) [#/Vol] 361.0 E9/L Normal 150.0-500. 0 [facility] Comment on above: Performed By: #### 2 867982, 82555866, 6807496, 8651291, 12709570, 4152952, 5088786, 3036182 ####[facility] [address] [place] [address] RBC (Bld) [#/Vol] 5.8 E12/L Normal 4.3-5.9 [facility] Comment on above: Performed By: #### 2 989444, 01972511, 4397659, 1068745, 63130371, 7765890, 8755271, 8156117 ####[facility] [address] [place] [address] WBC corrected for nucl RBC Auto (Bld) [#/Vol] 15.6 E9/L High 4.0-11.0 [facility] Comment on above: Performed By: #### 2 307762, 31267705, 4810219, 6921832, 86525051, 8063271, 4171213, 7133175 ####[facility] [address] [place] [address] Capillary Glucose POCon Glucose [Mass/Vol] 277 mg/dL High 55-99 [facility] Comment on above: Result Comment: Tisha didier Meter Performed By: #### 2 [id number] ####[facility] [address] [place] [address] Consent for Treatmenton Consent for Treatment [id number] Normal [facility] ED Note-Physicianon 08-13-20 ED Note-Physician Patient was signed o ut to me by the outgoing provider. At the time of signout they had reduced the abdominal hernia at bedside and a CT of the abdomen pelvis is pending. Dr. Christensen from the surgical service reviewed the CT and evaluated the patient at bedside. At this time her plan is to admit the patient to observation under her service for further monitoring. Normal [facility] Comment on above: Result Comment: Elec tronically Signed By: Shaun Caceres DO\.br\Date and Time Signed: 08/13/23 21:34 EST ED Note-Physician Basic Information No qualifying data available. Chief Complaint Pt. presents to the ed with lower abdominal pain from a known hernia that has gotten bigger saturday night. pt. complaining of nausea. History of Present Illness 47-year-old male comes into the ED for evaluation of hernia pain. He states he had umbilical hernia for many years, but yesterday he awoke with sudden pain and worsening protrusion. He has had associated nausea but no vomiting. He has had no bowel movements today and does not recall passing any gas. No fever or chills. Review of Systems A 10 point review of systems is negative except as noted above. Medical and Surgical History: Reviewed and noted Social history: Lives at home Tobacco: Denies Physical Exam Vitals & Measurements T: 36.4 ?C(Oral) HR: 115(Peripheral) RR: 28 BP: 207/110 SpO2: 97% HT: 185.42 cm WT: 181.5 kg BMI: 52.79 Nurses notes and vital signs reviewed and patient is not hypoxic. General: Patient appears uncomfortable Skin: Warm, dry, no pallor noted. Head: Atraumatic. Neck: No JVD. Eye: Normal conjunctiva. Ears, Nose, Mouth, and Throat: Moist mucous membranes Cardiovascular: Strong distal pulses. Tachycardic Chest wall: Respiratory: Respirations are nonlabored. Back: Normal range of motion, no CVA tenderness. Musculoskeletal: Normal ROM with no gross deformity. Gastrointestinal: Obese abdomen globally nontender. There was a large protruding hernia into the left of the umbilicus. This measures approximately 12 cm in diameter. It is exquisitely tender with some overlying faint erythema. Urological: Neurological: Awake and alert. No focal deficits. Follows commands. GCS 15. Psychiatric: Cooperative. Medical Decision Making Initial examination is concerning for an incarcerated hernia. Initial attempts at reduction were unsuccessful as the patient was not able to tolerate the pain. He was subsequently medicated with a milligram of Dilaudid. After medicated the patient using gentle pressure we were able to reduce the hernia. He continues to have a large abdominal wall deficit with a mild residual mass but this is now soft, and patient's pain is improved. Laboratory studies were obtained he is sent for CT of the abdomen. Case discussed with the oncoming physician for follow-up and disposition. Assessment/Plan 1. Abdominal hernia (K46.9: Unspecified abdominal hernia without obstruction or gangrene) Orders: HYDROmorphone, 1 mg = 1 mL, Injection, IV Push, Once, Stop date 08/13/23 18:45:00 EST, STAT, Start date 08/13/23 18:45:00 EST, 08/13/23 18:45:00 EST ondansetron, 4 mg = 2 mL, Injection, IV Push, Once, Stop date 08/13/23 18:45:00 EST, STAT, Start date 08/13/23 18:45:00 EST, 08/13/23 18:45:00 EST Sodium Chloride 0.9% intravenous solution, 1,000 mL, Soln-IV, IV, Once, Stop date 08/13/23 18:45:00 EST, STAT, Start date 08/13/23 18:45:00 EST, Infuse over 61, minute(s) Basic Metabolic Panel CBC w/ Auto Diff CT Abdomen/Pelvis w/ Contrast Hepatic Function Panel Lactic Acid Lipase Level PT & PTT Disposition Plan Discharge Prescription List Prescriptions No active prescription medications Follow-up No qualifying data available Problem List/Past Medical History Ongoing Abdominal hernia Anxiety Left groin mass Morbid obesity Recurrent scrotal infection Scrotal abscess Smoker Type II diabetes mellitus Historical No qualifying data Procedure/Surgical History Drainage of scrotal abscess (03/21/2016), Tonsillectomy. Medications Inpatient HYDROmorphone 1 mg/mL injectable solution, 1 mg= 1 mL, IV Push, Once NS 1000 ml Bolus, 1000 mL, IV, Once ondansetron 4 mg/2 mL Inj, 4 mg= 2 mL, IV Push, Once Home amoxicillin-clavulanate 875 mg-125 mg Tab busPIRone 5 mg Tab, Oral, BID glimepiride 4 mg Tab, Oral, Daily Keflex 500 mg Cap, 500 mg= 1 cap(s), Oral, q12hr, 1 refills losartan 25 mg Tab, Oral, Daily metformin 1000 mg oral tablet, extended release, Oral, Daily minocycline 100 mg Cap, Oral, q12hr Mounjaro 5 mg/0.5 mL subcutaneous solution venlafaxine 75 mg Cap-ER, Oral, Daily Allergies No Known Medication Allergies Social History Tobacco Former smoker, quit more than 30 days ago Tobacco Use:. Cigarettes, 2 per day. Yes, 11/05/2022 Family History Family history is negative Lab Results No qualifying data available. Diagnostic Results No qualifying data available. Normal [facility] Comment on above: Result Comment: Elec tronically Signed By: Baljit Moyer PA-C\.br\Date and Time Signed: 08/13/23 19:17 EST\.br\Electronically Co-Signed By: Joshua Starr DO\.br\Date and Time Co-Signed: 08/13/23 20:38 EST Hep Func Panelon 08-13-2023 Albumin [Mass/Vol] 4.1 g/dL Normal 3.3-5.0 [facility] Comment on above: Performed By: #### 2 735879, 66479996, 7559565, 1249231, 48024749, 5658832, 5206356, 0173367 ####[facility] [address] [place] [address] Albumin/Globulin (S) [Mass conc ratio] 0.9 Low 1.1-2.2 [facility] Comment on above: Performed By: #### 2 276651, 02323424, 6093152, 4353311, 77404118, 2310617, 9303137, 3955109 ####[facility] [address] [place] [address] ALP [Catalytic activity/Vol] 73 Int._Unit/L Normal 21-98 [facility] Comment on above: Performed By: #### 2 334923, 27386408, 3895359, 6448127, 71040247, 2665883, 4752445, 3811444 ####[facility] [address] [place] [address] ALT No additional P-5'-P [Catalytic activity/Vol] 36 Int._Unit/L Normal 6-46 [facility] Comment on above: Performed By: #### 2 153176, 37033892, 5918743, 8958798, 24673119, 1087415, 0981922, 9573019 ####[facility] [address] [place] [address] AST [Catalytic activity/Vol] 28 Int._Unit/L Normal 5-43 [facility] Comment on above: Performed By: #### 2 977112, 96383806, 8426418, 7642949, 48815371, 5565412, 0473790, 2682869 ####[facility] [address] [place] [address] Bilirubin [Mass/Vol] 0.7 mg/dL Normal 0.0-1.1 [facility] Comment on above: Performed By: #### 2 176278, 78384293, 7243799, 5583071, 09706582, 1795106, 2574935, 2726903 ####[facility] [address] [place] [address] Bilirubin.direct [Mass/Vol] 0.1 mg/dL Normal 0.1-0.4 [facility] Comment on above: Performed By: #### 2 862365, 02879331, 3935416, 6788993, 95381094, 2067692, 2848795, 3871462 ####[facility] [address] [place] [address] Bilirubin.indirect [Mass or moles/Vol] 0.6 mg/dL Normal 0.1-0.9 [facility] Comment on above: Performed By: #### 2 962624, 01509501, 0420122, 5959048, 82915810, 4885291, 3614327, 8281630 ####[facility] [address] [place] [address] Globulin (S) [Mass/Vol] 4.6 g/dL High 1.4-4.0 [facility] Comment on above: Performed By: #### 2 907318, 43900908, 8793373, 3463805, 01869444, 5152587, 3650879, 4944436 ####[facility] [address] [place] [address] Protein [Mass/Vol] 8.7 g/dL High 6.0-7.8 [facility] Comment on above: Performed By: #### 2 692740, 33585540, 4313376, 9559881, 54341032, 3536664, 6530918, 4322248 ####[place] [address] [place] [address] Lactic Acidon 08-13-2023 Lactate [Mass/Vol] 2.7 mmol/L High 0.5-2.2 [facility] Comment on above: Order Comment: Order added by EKS Rule. (FT_LACTIC_ACID_REFLEX) Adds reflex Lactic Acid 4 hours after initial if result is greater than or equal to 2.0. Performed By: #### 2 644732 ####[place] [address] [place] [address] Lactate [Mass/Vol] 3.2 mmol/L High 0.5-2.2 [facility] Comment on above: Performed By: #### 2 130190, 93927012, 8182040, 7175588, 88796481, 4859933, 7057581, 4522602 ####[place] [address] [place] [address] Lipase Levelon 08-13-2023 Lipase [Catalytic activity/Vol] 26 U/L Normal 13-58 [facility] Comment on above: Performed By: #### 2 702856, 06022668, 1029874, 8557572, 95001625, 9132855, 2580003, 4337898 ####[place] [address] [place] [address] PT & PTTon 08-13-2023 aPTT Coag (PPP) [Time] 31.3 second(s) Normal 25.1-36.5 [facility] Comment on above: Result Comment: Para meter 15 days - 4 weeks 1 - 5 months 6 - 11 months 1 - 5 years 6 - 10 years 11 - 17 years PTT Mean: 35.4 (27.6-45.6) Mean: 33.5 (24.8-40.7) Mean: 32.4 (25.1-40.7) Mean: 31.6 (24.0-39.2) Mean: 31.6 (26.9-38.7) Mean: 31.0 (24.6-38.4) Pediatric Reference ranges were obtained from a study by sandee Yepez al. prepared from 1437 samples obtained at 7 different centers using the same coagulation reagent and instrumentation as [facility]. Currently there are no coagulation studies available worldwide for children to 14 days, and no normal ranges. Heparin therapeutic range (represented by Anti-Factor Xa activity of 0.2 - 0.4 U/mL) corresponds to PTT of 56.6 - 109.0 sec. Performed By: #### 2 594728, 84056101, 9373952, 0948579, 31229375, 8568965, 4734826, 0283039 ####[facility] [address] [place] [address] INR Coag (PPP) [Relative time] 1.0 {INR} Invalid Interpretation Code [facility] Comment on above: Result Comment: INR results are specifically intended to assess patients stabilized on long-term Anticoagulation therapy suggested INR?s ?Less Intensive Anticoagulation? 2.0 ? 3.0 Conventional Range 3.0 ? 4.5 Performed By: #### 2 596991, 86147306, 9083908, 1617794, 44925872, 7804622, 0515560, 4942221 ####[facility] [address] [place] [address] PT Coag (PPP) [Time] 11.4 second(s) Normal 9.4-12.5 [facility] Comment on above: Result Comment: 15 d ays - 4 weeks 1 - 5 months 6 -11 months 1 ? 5 years 6 ? 10 years 11 -17 years Mean: 11.2 (9.5 ? 12.6) Mean: 11.0 (9.7 ? 12.8) Mean: 11.0 (9.8 ? 13.0) Mean: 11.3 (9.9 ? 13.4) Mean: 11.7 (10.0 ? 14.6) Mean: 11.8 (10.0 - 14.1) Pediatric Reference ranges were obtained from a study by rocco Yepez. prepared from 1437 samples obtained at 7 different centers using the same coagulation reagent and instrumentation as [facility]. Currently there are no coagulation studies available worldwide for children to 14 days, and no normal ranges. Performed By: #### 2 902063, 46368560, 0344632, 3067307, 75969703, 3389007, 1287210, 8739397 ####[facility] [address] [place] [address] RAD - Preliminary Cat Scan R eporton 08-13-2023 RAD - Preliminary Cat Scan Report [id number] Normal [facility] eGFRon 08-13-2023 GFR/1.73 sq M.predicted among non-blacks MDRD (S/P/Bld) [Vol rate/Area] 106 mL/min/1.73 m2 Normal >=59 [facility] Comment on above: Order Comment: Order added by Discern Expert. Result Comment: Yarn Conditioner dawson kidney disease could be indicated at eGFR's of less than 60 mL/min/1.73m2. Kidney failure is indicated at less than 15 mL/min/1.73m2. Performed By: #### 2 600221, 20951782, 9325929, 4533049, 93576819, 7222196, 9100205, 2743053 ####[facility] [address] [place] [address] CT CHEST W CONon 12-26-2022 CT CHEST W CON EXAMINATION: CT CHES T W CON HISTORY: Solitary nodule of lung COMPARISON: CT abdomen pelvis 11/27/2022 TECHNIQUE: Multi-planar CT images were created with IV contrast. Axial, Coronal, and Sagittal images. Dose reduction techniques were achieved by using automated exposure control and/or adjustment of mA and/or kV according to patient size and/or use of iterative reconstruction technique. FINDINGS: LUNGS: Stable 6 mm nodule within anterior lateral right lung base adjacent the major fissure. 13 mm nodule within lingula with central calcification compatible with a granuloma. Nearby 4 mm nodule within lingula, nonspecific. PLEURA: No mass, effusion, or pneumothorax. VASCULATURE: No abnormality. MAE: No mass or adenopathy. MEDIASTINUM: No mass or adenopathy. CARDIAC: No enlargement, pericardial thickening, or significant calcification. AORTA: No aneurysm or dissection. CHEST WALL: No mass or axillary adenopathy. BONES: No bone lesion or fracture. LIMITED ABDOMEN: No suspicious findings Limited images of the upper abdomen. OTHER: Negative. IMPRESSION: 1. Nonspecific pulmonary nodules as detailed above but suspected to represent granulomas. Consider follow-up imaging in 6, 12, and 24 months to document stability. Electronically authenticated by: LAURA FISH Date: 2022-12-26 08:31 Normal [facility] CT ABD/PELV W CONon 11-28-[address] ABD/PELV W CON EXAMINATION: CT ABD/ PELV W CON HISTORY: Hernia of abdominal cavity COMPARISON: None. TECHNIQUE: Axial CT images were obtained of the abdomen and pelvis without and with intravenous contrast. Multiplanar reconstructions were performed. Dose reduction techniques were achieved by using automated exposure control and/or adjustment of mA and/or kV according to patient size and/or use of iterative reconstruction technique. ABDOMEN/PELVIS FINDINGS: Lower Chest: There is a small nodule in the right lower lobe measuring 6.0 mm on image 7 of series 3. Liver: The liver is enlarged measuring 21.6 cm. Hepatic steatosis is also suspected. Biliary/Gallbladder: Unremarkable. Pancreas: Unremarkable. Spleen: Unremarkable. Adrenal Glands: Unremarkable. Kidneys: There is a punctate nonobstructive calculus in the lower pole of left kidney. Gastrointestinal/Peritoneum: There is a large anterior abdominal wall hernia containing multiple loops of small bowel measuring approximately 1.8 x 11.8 cm and is incompletely visualized. There are no dilated loops of bowel. The appendix is unremarkable. No free air or free fluid. Vascular: Mild scattered atherosclerotic calcifications are present. Lymph Nodes: There are enlarged lymph nodes in the inguinal regions bilaterally. For example in the right measuring 1.4 cm in short axis and on the left measuring 1.7 cm in short axis. The external iliac chain lymph nodes are also prominent. A right-sided external iliac node measures 1.5 cm in short axis. A left external iliac node measures 1.3 cm in short axis. Pelvic Organs: Unremarkable. Bladder: Unremarkable. Bones: No acute osseous abnormality. Soft tissues: Unremarkable. IMPRESSION: 1. Large anterior abdominal wall hernia containing multiple loops of small bowel without evidence of obstruction at this time. The collection is partially visualized due to being outside of the wfiyn-tt-xrxl. 2. Hepatic steatosis and hepatomegaly. 3. Enlarged lymph nodes in the bilateral inguinal and external iliac chain regions, which is nonspecific. 4. Punctate nonobstructive calculus in the left kidney. 5. 6 mm pulmonary nodule in the right lower lobe. A follow-up CT of the chest can be considered in one year if the patient has increased pulmonary risk factors. Electronically authenticated by: DARIUSZ VICENTE Date: 2022-11-27 10:31 Normal [facility] GLYCOHEMOGLOBIN A1Con 2022 ADA RECOMMENDATION SEE BELOW Normal [facility] Comment on above: Result Comment: ADA RECOMMENDED LIMIT 4.0 - 6.0 ADA THERAPEUTIC TARGET < 7.0 ACTION SUGGESTED > 7.0 Performed By: #### A 1C #### [facility] [address] [place] [address] Dr. Coco Rao Glucose [Mass/Vol] 180 mg/dL Normal [facility] Comment on above: Performed By: #### A 1C #### [facility] [address] [place] [address] Dr. Coco Rao HbA1c (Bld) [Mass fraction] 7.9 % Critically high 4.5-6.2 [facility] Comment on above: Performed By: #### A 1C #### [facility] [address] [place] [address] Dr. Coco Rao PROF 14(COMP METB)on 023 Albumin [Mass/Vol] 3.0 g/dL Critically low 3.4-5.0 Th [facility] Comment on above: Performed By: #### C MP #### [facility] [address] [place] [address] Dr. Coco Rao Albumin/Globulin [Mass ratio] 0.6 {ratio} Normal [facility] Comment on above: Performed By: #### C MP #### [facility] [address] [place] [address] [address] Coco Rao ALP [Catalytic activity/Vol] 94 U/L Normal 46-116 [facility] Comment on above: Performed By: #### C MP #### [facility] [address] [place] [address] Dr. Coco Rao ALT [Catalytic activity/Vol] 26 U/L Normal 16-63 [facility] Comment on above: Performed By: #### C MP #### [facility] [address] [place] [address] [address] Coco Rao Anion gap [Moles/Vol] 14.3 mmol/L Normal [facility] Comment on above: Performed By: #### C MP #### [facility] [address] [place] [address] [address] Coco Rao AST [Catalytic activity/Vol] 15 U/L Normal 15-37 [facility] Comment on above: Performed By: #### C MP #### [facility] [address] [address] [address] Coco Rao Bilirubin [Mass/Vol] 0.2 mg/dL Normal 0.2-1.0 [facility] Comment on above: Performed By: #### C MP #### [facility] [address] [address] [address] Coco Rao Calcium [Mass/Vol] 8.4 mg/dL Critically low 8.5-10.1 Th [facility] Comment on above: Performed By: #### C MP #### [facility] [address] [address] [address] Coco Rao Chloride [Moles/Vol] 101 mmol/L Normal 98-107 [facility] Comment on above: Performed By: #### C MP #### [facility] [address] [address] [address] Coco Rao CO2 [Moles/Vol] 25.7 mmol/L Normal 21.0-32.0 [facility] Comment on above: Performed By: #### C MP #### [facility] [address] [address] [address] Coco Rao Creatinine [Mass/Vol] 0.78 mg/dL Normal 0.70-1.30 [facility] Comment on above: Performed By: #### C MP #### [facility] [address] [address] [address] Coco Rao EGFR-AF [place] >60 Normal >=60 [facility] Comment on above: Performed By: #### C MP #### [facility] [address] [place] [address] Dr. Coco Rao EGFR-NON AF [place] >60 Normal >=60 [facility] Comment on above: Performed By: #### C MP #### [facility] [address] [place] [address] Dr. Coco Rao Globulin (S) [Mass/Vol] 5.2 g/dL Normal [facility] Comment on above: Performed By: #### C MP #### [facility] [address] [address] [address] Coco Rao Glucose [Mass/Vol] 134 mg/dL Critically high 74-106 T [facility] Comment on above: Performed By: #### C MP #### [facility] [address] [place] [address] Dr. Coco Rao Potassium [Moles/Vol] 4.0 mmol/L Normal 3.5-5.1 [facility] Comment on above: Performed By: #### C MP #### [facility] [address] [place] [address] Dr. Coco Rao Protein [Mass/Vol] 8.2 g/dL Normal 6.4-8.2 [facility] Comment on above: Performed By: #### C MP #### [facility] [address] [place] [address] Dr. Coco Rao Sodium [Moles/Vol] 137 mmol/L Normal 136-145 [facility] Comment on above: Performed By: #### C MP #### [facility] [address] [place] [address] Dr. Coco Rao Urea nitrogen [Mass/Vol] 10.0 mg/dL Normal 7.0-18.0 [facility] Comment on above: Performed By: #### C MP #### [facility] [address] [place] [address] Dr. Coco Rao Urea nitrogen/Creatinine [Mass ratio] 12.8 mg/mg Normal [facility] Comment on above: Performed By: #### C MP #### [facility] [address] [place] [address] Dr. Coco Rao CULTURE WOUNDon 11-02-2022 CULTURE WOUND Isolate 1 Streptococcus constellatus Moderate growth of ORGANISM 1 Streptococcus constellatus ANTIBIOTIC M.I.C RX STATUS Benzylpenicillin <=0.06 S F Ampicillin <=0.25 S F Cefotaxime <=0.12 S F Ceftriaxone 0.25 S F Erythromycin >=8 R F Clindamycin >=1 R F Linezolid <=2 S F Vancomycin 0.5 S F Tetracycline >=16 R F Normal [facility] Comment on above: Performed By: #### W OUNDCX #### [facility] [address] [place] [address] Dr. Coco Rao CULTURE WOUNDon 06-20-2022 CULTURE WOUND Isolate 1 Staphylococcus hominis Light growth of ORGANISM 1 Staphylococcus hominis ANTIBIOTIC M.I.C RX STATUS Beta-Lactamase Neg NEG F Cefoxitin Screen Neg NEG F Benzylpenicillin 0.25 R F Ciprofloxacin <=0.5 S F Levofloxacin <=0.12 S F Inducible Clindamycin Resistance Neg NEG F Erythromycin >=8 R F Clindamycin >=8 R F Quinupristin/Dalfopristin <=0.25 S F Linezolid <=0.5 S F Vancomycin 1 S F Tetracycline >=16 R F Rifampicin <=0.5 S F Trimethoprim/Sulfamethoxazol e 80 R F Oxacillin >=4 R F Normal [facility] Comment on above: Performed By: #### W OUNDCX #### [facility] [address] [place] [address] Dr. Coco Rao MICROALBUMIN URINEon 022 Albumin, Urine 17.9 ug/mL Normal Not Estab. [facility] Comment on above: Performed By: #### M ALBLC #### [facility] [address] [place] [address] Dr. Coco Rao CBC AUTO DIFFon 05-10-2022 BASO # 0.1 103/ul Normal 0.0-0.1 [facility] Comment on above: Performed By: #### W OUNDCX #### [facility] [address] [place] [address] Dr. Coco Rao Basophils/100 WBC (Bld) 0.8 % Normal 0.2-2.0 [facility] Comment on above: Performed By: #### W OUNDCX #### [facility] [address] [place] [address] Dr. Coco Rao EO # 0.3 103/ul Normal 0.0-0.7 [facility] Comment on above: Performed By: #### W OUNDCX #### [facility] [address] [place] [address] Dr. Coco Rao Eosinophils/100 WBC (Bld) 3.0 % Normal 0.9-7.0 [facility] Comment on above: Performed By: #### W OUNDCX #### [facility] [address] [place] [address] Dr. Coco Rao Erythrocyte distribution width (RBC) [Ratio] 15.2 % Critically high 11.0-15.0 [facility] Comment on above: Performed By: #### W OUNDCX #### [facility] [address] [place] [address] Dr. Coco Rao Hematocrit (Bld) [Volume fraction] 44.7 % Normal 42.0-54.0 [facility] Comment on above: Performed By: #### W OUNDCX #### [facility] [address] [place] [address] Dr. Coco Rao Hemoglobin (Bld) [Mass/Vol] 14.2 g/dL Normal 14.0-18.0 [facility] Comment on above: Performed By: #### W OUNDCX #### [facility] [address] [place] [address] Dr. Coco Rao IG # 0.04 10e3/ul Critically high 0.00-0.03 [facility] Comment on above: Performed By: #### W OUNDCX #### [facility] [address] [place] [address] Dr. Coco Rao IG % 0.4 % Normal 0.0-0.5 [facility] Comment on above: Performed By: #### W OUNDCX #### [facility] [address] [place] [address] Dr. Coco Rao LYMPH # 3.3 103/ul Normal 1.2-3.8 [facility] Comment on above: Performed By: #### W OUNDCX #### [facility] [address] [place] [address] Dr. Coco Rao Lymphocytes/100 WBC (Bld) 30.5 % Normal 20.5-60.0 [facility] Comment on above: Performed By: #### W OUNDCX #### [facility] [address] [place] [address] Dr. Coco Rao MANUAL DIFF REQ NO Normal [facility] Comment on above: Performed By: #### W OUNDCX #### [facility] [address] [place] [address] Dr. Coco Rao MCH (RBC) [Entitic mass] 26.9 pg Normal 25.9-34.0 [facility] Comment on above: Performed By: #### W OUNDCX #### [facility] [address] [place] [address] Dr. Coco Rao MCHC (RBC) [Mass/Vol] 31.8 g/dL Normal 29.9-35.2 [facility] Comment on above: Performed By: #### W OUNDCX #### [facility] [address] [place] [address] Dr. Coco Rao MCV (RBC) [Entitic vol] 84.7 fL Normal 80.0-94.0 [facility] Comment on above: Performed By: #### W OUNDCX #### [facility] [address] [place] [address] Dr. Coco Rao MONO # 1.0 103/ul Critically high 0.3-0.8 [facility] Comment on above: Performed By: #### W OUNDCX #### [facility] [address] [place] [address] Dr. Coco Rao Monocytes/100 WBC (Bld) 9.1 % Normal 1.7-12.0 [facility] Comment on above: Performed By: #### W OUNDCX #### [facility] [address] [address] [address] Coco Rao NEUT # 6.1 103/ul Normal 1.4-6.5 [facility] Comment on above: Performed By: #### W OUNDCX #### [facility] [address] [address] [address] Coco Rao Neutrophils/100 WBC (Bld) 56.2 % Normal 43.0-75.0 [facility] Comment on above: Performed By: #### W OUNDCX #### [facility] [address] [place] [address] Dr. Coco Rao Platelet mean volume (Bld) [Entitic vol] 9.3 fL Critically low 9.5-13.5 [facility] Comment on above: Performed By: #### W OUNDCX #### [facility] [address] [place] [address] Dr. Coco Rao PLT 372 103/ul Normal 150-450 [facility] Comment on above: Performed By: #### W OUNDCX #### [facility] [address] [place] [address] Dr. Coco Rao RBC 5.28 106/ul Normal 4.70-6.10 [facility] Comment on above: Performed By: #### W OUNDCX #### [facility] [address] [place] [address] Dr. Coco Rao WBC 10.8 103/ul Normal 4.0-11.0 [facility] Comment on above: Performed By: #### W OUNDCX #### [facility] [address] [place] [address] Dr. Coco Rao FREE T4on 05-10-2022 Free T4 [Mass/Vol] 1.31 ng/dL Normal 0.76-1.46 [facility] Comment on above: Performed By: #### W OUNDCX #### [facility] [address] [place] [address] Dr. Coco Rao GLYCOHEMOGLOBIN A1Con 2021 ADA RECOMMENDATION SEE BELOW Normal [facility] Comment on above: Result Comment: ADA RECOMMENDED LIMIT 4.0 - 6.0 ADA THERAPEUTIC TARGET < 7.0 ACTION SUGGESTED > 7.0 Performed By: #### A 1C #### [facility] [address] [place] [address] Dr. Coco Rao Glucose [Mass/Vol] 232 mg/dL Normal [facility] Comment on above: Performed By: #### A 1C #### [facility] [address] [place] [address] Dr. Coco Rao HbA1c (Bld) [Mass fraction] 9.7 % Critically high 4.5-6.2 [facility] Comment on above: Performed By: #### A 1C #### [facility] [address] [place] [address] Dr. Coco Rao LIPID PROFILEon 05-10-2022 CHOL-HDL RATIO NORM SEE BELOW Normal [facility] Comment on above: Result Comment: 3.3 - 4.4 LOW RISK 4.4 - 7.1 AVERAGE RISK 7.1 - 11.0 MODERATE RISK >11.0 HIGH RISK Performed By: #### C MP, LIPID, TSH #### [facility] [address] [place] [address] Dr. Coco Rao Cholesterol [Mass/Vol] 130 mg/dL Normal <=200 [facility] Comment on above: Performed By: #### C MP, LIPID, TSH #### [facility] [address] [place] [address] Dr. Coco Rao Cholesterol in HDL [Mass/Vol] 40 mg/dL Normal 40-60 [facility] Comment on above: Performed By: #### C MP, LIPID, TSH #### [facility] [address] [place] [address] Dr. Coco Rao Cholesterol in LDL [Mass/Vol] 66.0 mg/dL Normal [facility] Comment on above: Performed By: #### C MP, LIPID, TSH #### [facility] [address] [place] [address] Dr. Coco Rao Cholesterol.total/Ch olesterol in HDL [Mass ratio] 3.3 {ratio} Normal [facility] Comment on above: Performed By: #### C MP, LIPID, TSH #### [facility] [address] [address] [address] Coco Rao HDL NORMAL > or = 60 mg/dl - LO W CARDIOVASCULAR RISK <40 mg/dl - HIGH CARDIOVASCULAR RISK Normal [facility] Comment on above: Performed By: #### C MP, LIPID, TSH #### [facility] [address] [address] [address] Coco Rao LDL CALC NORMAL SEE BELOW Normal [facility] Comment on above: Result Comment: <100 mg/dl OPTIMAL 100 - 129 mg/dl NEAR OR ABOVE OPTIMAL 130 - 159 mg/dl BORDERLINE HIGH 160 - 189 mg/dl HIGH >190 mg/dl VERY HIGH Performed By: #### C MP, LIPID, TSH #### [facility] [address] [address] [address] Coco Rao Triglyceride [Mass/Vol] 120 mg/dL Normal <=150 [facility] Comment on above: Performed By: #### C MP, LIPID, TSH #### [facility] [address] [address] [address] Coco Rao VLDL CALC 24.0 mg/dL Normal [facility] Comment on above: Performed By: #### C MP, LIPID, TSH #### [facility] [address] [address] [address] Coco Rao PROF 14(COMP METB)on 022 Albumin [Mass/Vol] 3.0 g/dL Critically low 3.4-5.0 Th [facility] Comment on above: Performed By: #### C MP, LIPID, TSH #### [facility] [address] [address] [address] Coco Rao Albumin/Globulin [Mass ratio] 0.5 {ratio} Normal [facility] Comment on above: Performed By: #### C MP, LIPID, TSH #### [facility] [address] [address] [address] Coco Rao ALP [Catalytic activity/Vol] 89 U/L Normal 46-116 [facility] Comment on above: Performed By: #### C MP, LIPID, TSH #### [facility] [address] [address] [address] Coco Rao ALT [Catalytic activity/Vol] 22 U/L Normal 16-63 [facility] Comment on above: Performed By: #### C MP, LIPID, TSH #### [facility] [address] [address] [address] Coco Rao Anion gap [Moles/Vol] 15.1 mmol/L Normal [facility] Comment on above: Performed By: #### C MP, LIPID, TSH #### [facility] [address] [address] [address] Coco Rao AST [Catalytic activity/Vol] 14 U/L Critically low 15-37 [facility] Comment on above: Performed By: #### C MP, LIPID, TSH #### [facility] [address] [place] [address] Dr. Coco Rao Bilirubin [Mass/Vol] 0.4 mg/dL Normal 0.2-1.0 [facility] Comment on above: Performed By: #### C MP, LIPID, TSH #### [facility] [address] [address] [address] Coco Rao Calcium [Mass/Vol] 8.6 mg/dL Normal 8.5-10.1 [facility] Comment on above: Performed By: #### C MP, LIPID, TSH #### [facility] [address] [address] [address] Coco Rao Chloride [Moles/Vol] 100 mmol/L Normal 98-107 [facility] Comment on above: Performed By: #### C MP, LIPID, TSH #### [facility] [address] [address] [address] Coco Rao CO2 [Moles/Vol] 23.5 mmol/L Normal 21.0-32.0 [facility] Comment on above: Performed By: #### C MP, LIPID, TSH #### [facility] [address] [address] [address] Coco Rao Creatinine [Mass/Vol] 0.74 mg/dL Normal 0.70-1.30 [facility] Comment on above: Performed By: #### C MP, LIPID, TSH #### [facility] [address] [address] [address] Coco Rao EGFR-AF [place]ORE[place] >60 Normal >=60 [facility] Comment on above: Performed By: #### C MP, LIPID, TSH #### [facility] [address] [address] [address] Coco Rao EGFR-NON AF [place] >60 Normal >=60 [facility] Comment on above: Performed By: #### C MP, LIPID, TSH #### [facility] [address] [address] [address] Coco Rao Globulin (S) [Mass/Vol] 5.7 g/dL Normal [facility] Comment on above: Performed By: #### C MP, LIPID, TSH #### [facility] [address] [address] [address] Coco Rao Glucose [Mass/Vol] 175 mg/dL Critically high 74-106 [facility] Comment on above: Performed By: #### C MP, LIPID, TSH #### [facility] [address] [address] [address] Coco Rao Potassium [Moles/Vol] 3.6 mmol/L Normal 3.5-5.1 [facility] Comment on above: Performed By: #### C MP, LIPID, TSH #### [facility] [address] [address] [address] Coco Rao Protein [Mass/Vol] 8.7 g/dL Critically high 6.4-8.2 [facility] Comment on above: Performed By: #### C MP, LIPID, TSH #### [facility] [address] [address] [address] Coco Rao Sodium [Moles/Vol] 135 mmol/L Critically low 136-145 [facility] Comment on above: Performed By: #### C MP, LIPID, TSH #### [facility] [address] [address] [address] Coco Rao Urea nitrogen [Mass/Vol] 13.0 mg/dL Normal 7.0-18.0 [facility] Comment on above: Performed By: #### C MP, LIPID, TSH #### [facility] [address] [place] [address] Dr. Coco Rao Urea nitrogen/Creatinine [Mass ratio] 17.6 mg/mg Normal [facility] Comment on above: Performed By: #### C MP, LIPID, TSH #### [facility] [address] [place] [address] Dr. Coco Rao TSHon 05-10-2022 TSH 1.025 uIU/mL Normal 0.358-3.74 0 [facility] Comment on above: Performed By: #### C MP, LIPID, TSH #### [facility] [address] [place] [address] Dr. Coco Rao UA RANDOM W/MICROSCOPICon BACTERIA NONE SEEN Normal NONE SEEN [facility] Comment on above: Performed By: #### U AMIC #### [facility] [address] [place] [address] Dr. Coco Rao Bilirubin Ql (U) Negative Normal NEGATIVE [facility] Comment on above: Performed By: #### U AMIC #### [facility] [address] [place] [address] Dr. Coco Rao CAST NONE SEEN Normal NONE SEEN [facility] Comment on above: Performed By: #### U AMIC #### [facility] [address] [place] [address] Dr. Coco Rao Clarity (U) CLEAR Normal CLEAR [facility] Comment on above: Performed By: #### U AMIC #### [facility] [address] [place] [address] Dr. Coco Rao Color (U) YELLOW Normal YELLOW [facility] Comment on above: Performed By: #### U AMIC #### [facility] [address] [place] [address] Dr. Coco Rao Crystals LM Nom (Urine sed) NONE SEEN Normal NONE SEEN [facility] Comment on above: Performed By: #### U AMIC #### [facility] [address] [place] [address] Dr. Coco Rao Epithelial cells LM Ql (Urine sed) FEW Abnormal NONE SEEN /RARE [facility] Comment on above: Performed By: #### U AMIC #### [facility] [address] [place] [address] Dr. Coco Rao Glucose Ql (U) 1000 mg/dl Abnormal NEGATIVE [facility] Comment on above: Performed By: #### U AMIC #### [facility] [address] [place] [address] Dr. Coco Rao Hemoglobin Ql (U) Negative Normal NEGATIVE [facility] Comment on above: Performed By: #### U AMIC #### [facility] [address] [place] [address] Dr. Coco Rao Ketones Ql (U) 15 mg/dl Abnormal NEGATIVE [facility] Comment on above: Performed By: #### U AMIC #### [facility] [address] [place] [address] Dr. Coco Rao LEUKOCYTES Negative Normal NEGATIVE [facility] Comment on above: Performed By: #### U AMIC #### [facility] [address] [place] [address] Dr. Coco Rao MUCOUS NONE SEEN Normal NONE SEEN [facility] Comment on above: Performed By: #### U AMIC #### [facility] [address] [place] [address] Dr. Coco Rao Nitrite Ql (U) Negative Normal NEGATIVE [facility] Comment on above: Performed By: #### U AMIC #### [facility] [address] [place] [address] Dr. Coco Rao pH (U) 6.0 [pH] Normal 5-9 [facility] Comment on above: Performed By: #### U AMIC #### [facility] [address] [place] [address] Dr. Coco Rao RBC NONE SEEN Abnormal 0-2 [facility] Comment on above: Performed By: #### U AMIC #### [facility] [address] [place] [address] Dr. Coco Rao SPEC GRAVITY 1.020 Normal 1.005-<=1. 025 [facility] Comment on above: Performed By: #### U AMIC #### [facility] [address] [address] [address] Coco Rao UA PROTEIN Negative Normal NEGATIVE/ TRACE [facility] Comment on above: Performed By: #### U AMIC #### [facility] [address] [address] [address] Coco Rao Urobilinogen Qn (U) 1.0 {Joce'U}/dL Normal 0.2 - 1. 0 [facility] Comment on above: Performed By: #### U AMIC #### [facility] [address] [address] [address] Coco Rao WBC NONE SEEN Normal NONE SEEN [facility] Comment on above: Performed By: #### U AMIC #### [facility] [address] [place] [address] Dr. Coco Rao Vital Signs Date Time Vital Sign Value Performing Clinician Facility 03-19-2024 18:00-0400 [facility] Comment on above: Result Comment: patient d/c. transported pt via w/c to main doors per families request 03-19-2024 17:00-0400 [facility] 03-19-2024 17:00-0400 [facility] Return [facility] 03-19-2024 16:52-0400 [facility] 03-19-2024 16:52-0400 [facility] 03-19-2024 16:00-0400 Blood Pressure Location [facility] 03-19-2024 16:00-0400 Body temperature 98.06 [degF] [facility] 03-19-2024 16:00-0400 Diastolic blood pressure 80 mm[Hg] Jason [facility] 03-19-2024 16:00-0400 Heart rate 85 /min [facility] 03-19-2024 16:00-0400 Mean blood pressure 105 mm[Hg] [facility] 03-19-2024 16:00-0400 Respiratory rate 16 /min [facility] 03-19-2024 16:00-0400 SaO2% (BldA) [Mass fraction] 98 % [facility] 03-19-2024 16:00-0400 Systolic blood pressure 154 mm[Hg] Jason [facility] 03-19-2024 15:49-0400 [facility] to Return Jason [facility] 03-19-2024 12:00-0400 Diastolic blood pressure 84 mm[Hg] [facility] 03-19-2024 12:00-0400 Systolic blood pressure 157 mm[Hg] [facility] 03-19-2024 06:00-0400 Body temperature 97.52 [degF] [facility] 03-19-2024 06:00-0400 Diastolic blood pressure 83 mm[Hg] [facility] 03-19-2024 06:00-0400 Heart rate 83 /min [facility] 03-19-2024 06:00-0400 Respiratory rate 18 /min [facility] 03-19-2024 06:00-0400 Systolic blood pressure 168 mm[Hg] [facility] 03-19-2024 01:25-0400 Blood Pressure Location [facility] 03-19-2024 01:25-0400 Body temperature 97.7 [degF] [facility] 03-19-2024 01:25-0400 Heart rate 92 /min [facility] 03-19-2024 01:25-0400 Mean blood pressure 103 mm[Hg] [facility] 03-19-2024 01:25-0400 Respiratory rate 20 /min [facility] 03-19-2024 01:25-0400 SaO2% (BldA) [Mass fraction] 97 % [facility] 03-18-2024 21:33-0400 gluc 275 mg/dL [facility] 03-18-2024 19:22-0400 Blood Pressure Location [facility] 03-18-2024 19:22-0400 Mean blood pressure 103 mm[Hg] [facility] 03-18-2024 19:21-0400 Body temperature 97.7 [degF] [facility] 03-18-2024 16:05-0400 Body temperature 98.24 [degF] [facility] 03-18-2024 12:29-0400 Mean blood pressure 118 mm[Hg] [facility] 03-17-2024 21:36-0400 gluc 218 mg/dL [facility] 03-17-2024 11:00-0400 Body temperature 98.24 [degF] [facility] 03-17-2024 11:00-0400 Mean blood pressure 106 mm[Hg] [facility] 03-16-2024 00:34-0400 Heart rate 98 /min [facility] 03-16-2024 00:34-0400 Mean blood pressure 98 mm[Hg] [facility] 03-16-2024 00:34-0400 Respiratory rate 19 /min [facility] 03-15-2024 14:20-0400 Body temperature 96.98 [degF] [facility] 03-15-2024 14:20-0400 Respiratory rate 15 /min [facility] 03-15-2024 14:10-0400 Respiratory rate 20 /min [facility] 03-15-2024 13:47-0400 Body temperature 97.34 [degF] [facility] 03-15-2024 05:00-0400 Heart rate 76 /min [facility] 03-14-2024 23:52-0400 Heart rate 82 /min Jason [facility] 03-05-2024 12:37-0400 [facility] Es[facility] 03-05-2024 12:37-0400 Promise to Return Esvin Liz [facility] 03-05-2024 11:00-0400 Hourly Rounding [place] [facility] 03-05-2024 11:00-0400 Promise to Return [place] [facility] 03-05-2024 10:00-0400 Diastolic blood pressure 92 mm[Hg] [place] [facility] 03-05-2024 10:00-0400 Hourly Rounding Esvin Liz [facility] 03-05-2024 10:00-0400 Promise to Return [place] [facility] 03-05-2024 10:00-0400 Systolic blood pressure 168 mm[Hg] [place] [facility] 03-05-2024 09:45-0400 Body temperature 97.7 [degF] Esvin Liz [facility] 03-05-2024 09:45-0400 Diastolic blood pressure 91 mm[Hg] Esvin Liz [facility] 03-05-2024 09:45-0400 Heart rate 81 /min Esvin Liz [facility] 03-05-2024 09:45-0400 Mean blood pressure 119 mm[Hg] [place] [facility] 03-05-2024 09:45-0400 Respiratory rate 18 /min [place] [facility] 03-05-2024 09:45-0400 SaO2% (BldA) [Mass fraction] 98 % [place] [facility] 03-05-2024 09:45-0400 Systolic blood pressure 176 mm[Hg] [place] [facility] 03-05-2024 05:23-0400 gluc 165 mg/dL [place] [facility] 03-05-2024 03:55-0400 Respiratory rate 18 /min [place] [facility] 03-05-2024 03:50-0400 Heart rate 76 /min Esvin Liz [facility] 03-05-2024 03:50-0400 SaO2% (BldA) [Mass fraction] 98 % [place] [facility] 03-05-2024 03:49-0400 Diastolic blood pressure 86 mm[Hg] Esvin Liz [facility] 03-05-2024 03:49-0400 Mean blood pressure 111 mm[Hg] Esvin Liz [facility] 03-05-2024 03:49-0400 Systolic blood pressure 161 mm[Hg] Esvin Liz [facility] 03-05-2024 03:47-0400 Body temperature 97.88 [degF] Esvin Liz [facility] 03-04-2024 23:54-0400 gluc 169 mg/dL Esvin Liz [facility] 03-04-2024 23:30-0400 Body temperature 98.6 [degF] [place] [facility] 03-04-2024 23:30-0400 Mean blood pressure 104 mm[Hg] Esvin Liz [facility] 03-04-2024 23:30-0400 Respiratory rate 18 /min [place] [facility] 03-04-2024 23:30-0400 SaO2% (BldA) [Mass fraction] 97 % Esvin Liz [facility] 03-04-2024 20:09-0400 Mean blood pressure 104 mm[Hg] Esvin Liz [facility] 03-04-2024 20:08-0400 Body temperature 98.96 [degF] Esvin Liz [facility] 03-04-2024 19:50-0400 gluc 191 mg/dL Esvin Liz [facility] 03-04-2024 18:35-0400 Blood Pressure Location [place] [facility] 03-04-2024 18:35-0400 Body temperature 97.88 [degF] [place] [facility] 03-04-2024 18:35-0400 Heart rate 85 /min [place] [facility] 03-04-2024 17:39-0400 Mean blood pressure 92 mm[Hg] Esvin Liz [facility] 03-04-2024 17:00-0400 Mean blood pressure 103 mm[Hg] Esvin Liz [facility] 03-04-2024 14:15-0400 Body temperature 97.52 [degF] [place] [facility] 03-04-2024 14:15-0400 Heart rate 105 /min Esvin Liz [facility] Encounters Encounter Date Encounter Type Care Provider Facility Start: 04-03-2024 End: 04-03-2024 [facility] Eliezer Collins [place] Start: 03-26-2024 End: 03-26-2024 ambulatory JOAN AICHHOLZ Not Available Start: 03-25-2024 End: 03-25-2024 ambulatory Shannon Gallegos [place] Start: 03-23-2024 ambulatory Demarco Collins Facility:[facility] Start: 03-14-2024 End: 03-19-2024 Evaluation and management of inpatient Salvatore WOOTEN [place] Start: 03-14-2024 Emergency department patient visit Demarco Ferreira Facility[place] Start: 03-14-2024 End: 03-19-2024 Evaluation and management of inpatient Jasno West [facility] Start: 03-04-2024 End: 03-05-2024 ambulatory Bryce Gibson [place] Start: 03-04-2024 Emergency department patient visit Bryce Lainezjammie Facility[place] Start: 03-04-2024 End: 03-05-2024 Observation [place] [facility] Start: 10-10-2023 End: 10-10-2023 ambulatory JOAN JEOVANYZ Not Available Start: 08-13-2023 End: 08-14-2023 ambulatory Alesha Christensen [place] Start: 12-26-2022 End: 12-27-2022 ambulatory REHAB CARE ASSISTANT JOAN ANA LUISA Facility: Start: 11-27-2022 End: 11-28-[address] SALVATORE MATHUR . Facility: Start: 11-05-2022 End: 11-05-2022 Patient encounter procedure Salvatore MATHUR [facility] Start: 10-29-2022 End: 10-29-2022 ambulatory REHAB CARE ASSISTANT JOAN AICHBRYANZ Facility:[facility] Start: 06-18-2022 End: 06-18-2022 ambulatory REHAB CARE ASSISTANT JOAN AICHBRYANZ Facility: Start: 05-11-2022 End: 05-11-2022 ambulatory JAVIER OROSCO Facility:[facility] Start: 05-10-2022 End: 05-11-2022 ambulatory JAVIER OROSCO Facility:[facility] Procedures Date Procedure Procedure Detail Performing Clinician Start: 03-21-2016 Drainage of scrotal abscess Salvatore MATHUR Tonsillectomy Salvatore KEVAN Plan of Treatment Date Care Activity Detail Author Start: 04-24-2024 ambulatory Ambulatory Facility:[facility] Immunizations Immunization Date Immunization Notes Care Provider Fa cili 04-25-2021 SARS-CoV-2 (COVID-19 ) mRNA BNT-162b2 vax Salvatore KEVAN [facility] 03-31-2021 SARS-CoV-2 (COVID-19 ) mRNA BNT-162b2 vax Salvatore KEVAN [facility] Payers Date Payer Category Payer Unknown [id number] 2.16.84 [id number] 1975 Unknown [id number] 2.16.84 0.1.392595.3.579.2.593 1975 Unknown [id number] 2.16.84 0.1.810305.3.579.2.593 1975 Unknown [id number] 2.16.84 0.1.727171.3.579.2.593 1975 Unknown [id number] 2.16.84 0.1.099189.3.579.2.593 1975 Unknown [id number] 2.16.84 0.1.707782.3.579.2.593 1975 Unknown [id number] 2.16.84 0.1.703285.3.579.2.593 1975 Unknown [id number] 2.16.8 40.1.736725.3.579.2.727 1975 Unknown [id number] 2.16.8 40.1.496683.3.579.2.727 1975 Unknown [id number] 2.16.8 40.1.601190.3.579.2.727 1975 Unknown [id number] 2.16.8 40.1.517004.3.579.2.727 1975 Unknown [id number] 2.16.8 40.1.976898.3.579.2727 1975 Unknown [id number] 2.16.8 40.1.687165.3.579.2727 1975 Unknown [id number] 2.16.8 40.1.537805.3.579.2727 1975 Unknown [id number] 2.16.8 40.1.943431.3.579.2727 1975 Unknown [id number] 2.16.8 40.1.764015.3.579.2727 1975 Unknown [id number] 2.16.8 40.1.620532.3.579.2727 1975 Unknown [id number] 2.16.8 40.1.394867.3.579.2727 1975 Unknown [id number] 2.16.8 40.1.549690.3.579.2727 1975 Unknown [id number] 2.16.8 40.1.271719.3.579.2.727 1975 Unknown [id number] 2.16.8 40.1.944345.3.579.2.727 1975 Unknown [id number] 2.16.8 40.1.930762.3.579.2727 1975 Unknown [id number] 2.16.84 0.1.352560.3.579.2.1259 1975 Unknown [id number] 2.16.84 0.1.293449.3.579.2.1259 1975 Unknown [id number] 2.16.8 40.1.316778.3.579.2.727 1975 Unknown [id number] 2.16.8 40.1.020191.3.579.2.727 1975 Unknown [id number] 2.16.8 40.1.479292.3.579.2.727 1975 Unknown [id number] 2.16.8 40.1.134755.3.579.2.727 1959 Medicare [id number] Social History Date Type Detail Facility Start: 11-05-2022 End: 08-14-2023 Tobacco smoking status Ex-smoker (finding) [facility] Sex Assigned At Male [facility] Functional Status Date Assessment Result Facility 03-14-2024 Functional Status N/A [facility] 03-14-2024 Functional Status [facility] 03-04-2024 Functional Status N/A [facility] 03-04-2024 Functional Status [facility] 11-05-2022 Functional Status N/A [facility] Clinical Notes 11-05-2022 to 04-04-2024 Note Date & Type Note Facility 04-04-2024 Note Progress Note-Physic fredy Patient: CHRISTIAN SHELBY Age: 48 years Sex: Male : 1975 Associated Diagnoses: None Author: Ambrosio Layne Jr, DO Preoperative Information Anesthesia Preop Info: Time patient last ate or drank 04/03/2024 00:00:00. Anesthesia history: Patient history: None. Family history+: None. Informed consent: Signed by patient. Re-evaluation prior to induction: Initial evaluation reviewed: No significant change. Review of Systems Eye: Negative except as documented in history of present illness. Ear/Nose/Mouth/Throat: Negative except as documented in history of present illness. Respiratory: Negative except as documented in history of present illness. Cardiovascular: Negative except as documented in history of present illness. Musculoskeletal: Negative except as documented in history of present illness. Neurologic: Negative except as documented in history of present illness. Health Status Allergies: Allergic Reactions (Selected) No Known Medication Allergies Problem list: All Problems Type II diabetes mellitus / SNOMED CT 598237269 / Confirmed Smoker / SNOMED CT 271993086 / Confirmed Encounter for screening colonoscopy / SNOMED CT 028789293 / Confirmed Morbid obesity / SNOMED CT 364586433 / Confirmed Melena / SNOMED CT 1669205 / Confirmed Recurrent scrotal infection / SNOMED CT 5374504501 / Confirmed Abdominal hernia / SNOMED CT 32360635 / Confirmed Left groin mass / SNOMED CT 9408302409 / Confirmed Anxiety / SNOMED CT 26752840 / Confirmed Scrotal abscess / SNOMED CT 59706746 / Confirmed Resolved: At risk for falls / SNOMED CT 638714116 Problem added when Risk for Falls Careplan was initiated. Resolved due to patient discharge. Canceled: Orchitis / SNOMED CT 360240427 Canceled: Scrotal infection / SNOMED CT 1551840326 Canceled: Epididymitis / SNOMED CT 78915382 Histories Procedure history: Drainage of scrotal abscess (491940415) on 03/21/2016 at 40 Years. Tonsillectomy (293469062). Social History Social & Psychosocial Habits Alcohol Comment: Denies use. - 08/14/2023 03:42 - Hunter WILHELM, Elisa Cazares Substance Abuse 04/03/2024 Type: Marijuana 04/03/2024 Use: Current 04/03/2024 Type: Marijuana 04/03/2024 Use: Current Type: Marijuana Frequency: Daily 04/03/2024 Risk Assessment: High Risk Tobacco 04/03/2024 Tobacco Use: Former smoker, quit more Type: Cigarettes Tobacco use per day: 2 Smoking Cessation Yes 04/03/2024 Tobacco Use: Former smoker, quit more . Physical Examination Airway: Mallampati classification: II (soft palate, fauces, uvula visible). Respiratory: adequate air exchange. Cardiovascular: Regular rhythm. Plan [place] [employer] (ASA) physical status classification: Class IV. Anesthetic Preoperative Plan: Anesthesia General. [facility] Comment on above: Result Comment: Elec tronically Signed By: Roverto Sharpe DO, Ambrosio Bryson\.jeniffer\Date and Time Signed: 04/04/24 10:18 EDT 07-27-2024 Note Progress Note-Physic fredy Patient: CHRISTIAN SHELBY Age: 48 years Sex: Male : 1975 Associated Diagnoses: None Author: Ambrosio Layne Jr, DO Postoperative Information Postoperative disposition: Postoperative disposition: To PACU. Optimetrix number: Optimetrix number [id number]. Anesthetic utilized: General. Health Status Allergies: Allergic Reactions (Selected) No Known Medication Allergies Physical Examination Vital Signs 04/03/2024 15:55 EDT Heart Rate Monitored 82 bpm Respiratory Rate Monitored 18 br/min Systolic Blood Pressure 147 mmHg HI Diastolic Blood Pressure 87 mmHg SpO2 94 % 04/03/2024 15:50 EDT Heart Rate Monitored 88 bpm Respiratory Rate Monitored 23 br/min Systolic Blood Pressure 136 mmHg Diastolic Blood Pressure 69 mmHg SpO2 96 % 04/03/2024 15:45 EDT Temperature Temporal Artery 36.0 DegC LOW Heart Rate Monitored 82 bpm Respiratory Rate Monitored 19 br/min Systolic Blood Pressure 118 mmHg Diastolic Blood Pressure 76 mmHg SpO2 99 % Pain Assessment: Controlled. General: Awake, Alert, Appropriate. Respiratory: Adequate air exchange. Cardiovascular: Stable, Normal peripheral perfusion. Neurological: Normal sensory function, Normal motor function. Assessment Anesthetic outcome No anesthetic complications noted. Adequate pain relief. able to void without difficulty, able to ambulate with assist, tolerating PO intake, no N/V. Review / Management Condition: Stable. Plan Transfer/Discharge: Transfer/Discharge Discharge when meets criteria ( To home ). [facility] Comment on above: Result Comment: Elec tronically Signed By: Ambrosio Layne Jr, DO\.br\Date and Time Signed: 04/04/24 10:17 EDT 04-03-2024 Note Patient Education - Text Gastroenterology Upper Endoscopy, Adult, Care After After the procedure, it is common to have a sore throat. It is also common to have: ? Mild stomach pain or discomfort. ? Bloating. ? Nausea. Follow these instructions at home: The instructions below may help you care for yourself at home. Your health care provider may give you more instructions. If you have questions, ask your health care provider. ? If you were given a sedative during the procedure, it can affect you for several hours. Do not drive or operate machinery until your health care provider says that it is safe. ? If you will be going home right after the procedure, plan to have a responsible adult: ? Take you home from the hospital or clinic. You will not be allowed to drive. ? Care for you for the time you are told. ? Follow instructions from your health care provider about what you may eat and drink. ? Return to your normal activities as told by your health care provider. Ask your health care provider what activities are safe for you. ? Take tcct-ozm-hvsuwac and prescription medicines only as told by your health care provider. Contact a health care provider if you: ? Have a sore throat that lasts longer than one day. ? Have trouble swallowing. ? Have a fever. Get help right away if you: ? Vomit blood or your vomit looks like coffee grounds. ? Have bloody, black, or tarry stools. ? Have a very bad sore throat or you cannot swallow. ? Have difficulty breathing or very bad pain in your chest or abdomen. These symptoms may be an emergency. Get help right away. Call 911. ? Do not wait to see if the symptoms will go away. ? Do not drive yourself to the hospital. Summary ? After the procedure, it is common to have a sore throat, mild stomach discomfort, bloating, and nausea. ? If you were given a sedative during the procedure, it can affect you for several hours. Do not drive until your health care provider says that it is safe. ? Follow instructions from your health care provider about what you may eat and drink. ? Return to your normal activities as told by your health care provider. This information is not intended to replace advice given to you by your health care provider. Make sure you discuss any questions you have with your health care provider. Document Revised: 12/05/2022 Document Reviewed: 12/05/2022 [employer] Patient Education ? 2022 [employer] Infectious Disease Duodenitis Duodenitis is inflammation of the lining of the first part of the small intestine (duodenum). It is commonly caused by an infection from bacteria, which may also lead to open sores (ulcers) in the intestine. Duodenitis may develop suddenly and last for a short time (acute), or it may develop gradually and last for months or years (chronic). What are the causes? The most common cause of duodenitis is an infection from a type of bacteria called Helicobacter pylori (H. pylori). Other causes of this condition include: ? Long-term use of NSAIDs. ? Excessive use of alcohol. ? An infection of the small intestine caused by the Giardia parasite (giardiasis). ? Crohn's disease. ? Certain diseases of the body's defense system (immune system). ? Certain treatments for cancer. What increases the risk? The following factors may make you more likely to develop this condition: ? Smoking cigarettes. ? Drinking alcohol. ? Having a family history of duodenitis. ? Taking NSAIDs. ? Eating a high-fat diet. What are the signs or symptoms? Symptoms of this condition may include: ? Gnawing or burning pain in the upper center of the abdomen (epigastric pain). This may get worse when the stomach is empty and may get better after eating. ? Abdominal cramps. ? Nausea and vomiting. ? Bloody vomit. ? Stools that are bloody, dark, or look like tar. ? Diarrhea. ? Weight loss. ? Fatigue. How is this diagnosed? This condition may be diagnosed based on your medical history and a physical exam. You may also have tests, such as: ? Blood tests. ? Stool tests. ? A test that checks the gases in your breath. ? An X-ray that is done after you swallow a liquid (barium) that makes your digestive tract easier to see. ? Endoscopy. This is an exam of the duodenum that is done by putting a thin tube with a tiny camera on the end (endoscope) down your throat. A sample of tissue from your duodenum (biopsy) may be removed with the endoscope and examined under a microscope for signs of inflammation and infection. How is this treated? Treatment depends on the cause of your condition. Treatment may include: ? Antibiotic medicine to treat H. pylori infection. ? Stopping your intake of NSAIDs. ? Medicine to reduce stomach acids. ? Medicines to treat other conditions, such as Crohn's disease or giardiasis. ? Surgery to treat severe inflammation that causes scarring or [place] (more content not included)... [facility] 03-22-2024 Note Discharge Summary DISCHARGE SUMMARY [address] [address] CHRISTIAN SHELBY MRN: [id number] Date of : 1975 48 Years Male Attending Brett MARTINEZ, Jason García Date of Admission 03/14/2024 Date of Discharge 03/19/2024 DIAGNOSES: ventral hernia PROCEDURES: Procedures Exploratory laparotomy, lysis of adhesions, resection of hernia sac, primary repair of ventral hernia, bilateral TAP blocks 03/15/[address] West DISCHARGE MEDICATIONS: DISCHARGE MEDICATIONS Medication List Active Medications Ordered acetaminophen: 975 mg, 3 tab(s), Oral, q6hr. atorvastatin: 10 mg, 0.5 tab(s), Oral, Bedtime. busPIRone: 5 mg, 1 tab(s), Oral, BID. docusate: 100 mg, 1 cap(s), Oral, BID. hydrALAZINE: 10 mg, 0.5 mL, IV Push, q6hr, PRN: Other (see comment). HYDROmorphone: 0.5 mg, 0.5 mL, IV Push, q3hr, PRN: Breakthrough Pain. insulin glargine: 10 unit(s), 0.1 mL, SubCutaneous, Once a day (at bedtime). insulin lispro: 0-10 unit(s), SubCutaneous, QIDACHS. ketorolac: 30 mg, 1 mL, IV Push, q6hr. ondansetron: 4 mg, 2 mL, IV Push, q6hr, PRN: Nausea. orphenadrine: 60 mg, 2 mL, IV Push, q12hr. oxybutynin: 5 mg, 1 tab(s), Oral, Daily. oxycodone: 5 mg, 1 tab(s), Oral, q4hr, PRN: Pain 4-7. oxycodone: 10 mg, 2 tab(s), Oral, q4hr, PRN: Pain 8-10. pantoprazole: 40 mg, 10 mL, IV Push, Daily. phenol topical: 1 spray(s), Topical, q2hr, PRN: Sore throat. venlafaxine: 75 mg, 1 cap(s), Oral, Daily. Prescribed docusate: 100 mg, 1 cap(s), Oral, BID, for 7 day(s), 14 cap(s), 0 Refill(s). oxycodone: 5 mg, 1 tab(s), Oral, q6hr, for 3 day(s), PRN: Pain 8-10, 12 tab(s), 0 Refill(s). Documented acetaminophen: 975 mg, 3 tab(s), Oral, q6hr, 0 Refill(s). atorvastatin: Daily, 0 Refill(s). busPIRone: mg, tab(s), Oral, BID, 0 Refill(s). glimepiride: mg, tab(s), Oral, Daily, 0 Refill(s). losartan: mg, tab(s), Oral, Daily, 0 Refill(s). metformin: mg, tab(s), Oral, Daily, 0 Refill(s). minocycline: mg, cap(s), Oral, q12hr, 0 Refill(s). oxybutynin: Daily, 0 Refill(s). tirzepatide: 0 Refill(s). venlafaxine: mg, cap(s), Oral, Daily, 0 Refill(s). REASON FOR HOSPITALIZATION: CHRISTIAN SHELBY is a 48 Years-old Male with a PMHx of obesity and diabetes. Patient was last seen at [facility] on 03/04 when he was admitted for observation given pain and possible obstruction of his known chronic ventral hernia (over 20 years). At that time, the hernia was partially reduced and he was able to tolerate a diet without issue and discharged home. This morning he was working on his well puller head on the ground, and when he got up, he felt a sharp pain over the hernia that led him to come back to the ED. He underwent a CT scan that demonstrated similar findings of fat and bowel containing hernia, but with increased mesenteric edema compared to last week. He did not have any upstream bowel dilation. He did have a bowel movement this morning but does not think he has passed flatus since the pain started. He states that he feels much better now and reports no pain, only mild soreness at the hernia site. He states that his hernia felt firm and was more protuberant while the pain was there, but is now back to his baseline. SIGNIFICANT FINDINGS: Catalog of Injuries incarcerated ventral hernia HOSPITAL COURSE: 03/14/2024: Admitted for observation, pain improved 03/15/2024: Taken to OR for ex-lap, lysis of adhesions, resection of hernia sac, primary repair of ventral hernia, bilateral TAP blocks 03/16/2024: +flatus, +nausea but no vomiting. on CARDIOLOGY RN for pain 03/17/2024: tolerating diet, +BM 03/18/2024: melanotic stool and downtrending H/H 03/19/2024: H/H stable, pt set up for outpatient colonoscop/EGD with Dr. Collins. Pt advancing as expected, tolerating regular diet, no N/V. Pain well controlled, ambulating unassisted, voiding spontaneously. Pt is medically cleared for DC at this time. The patient was seen and examined on the day of discharge with the following findings: GENERAL: alert, pleasant, conversational. HEENT: normocephalic. oral mucosa moist. CARDIOVASCULAR: RRR. PULMONARY: CTAB. breathing comfortably on room air ABDOMINAL: Abdomen is soft, appropriately tender in the midline. Nondistended. Incision with provena wound vac. Patient is wearing a abdominal binder. GHULAM drain in the subcutaneous space noted with blood-tinged serosanguineous output. EXTREMITIES: moves all extremities with equal strength NEUROLOGICAL: AxO x3 Given the excellent progress, the patient was determined stable for discharge. ANTICIPATED FOLLOW UP: With: Address: When: trauma clinic [address] [place] [address] 3, second floor, [address] [place] [address] 03/25/2024 9:30 AM Comments: Call to schedule/confirm followup appointment for wound check and GHULAM drain removal Other indicated follow up and instructions for scheduling: F/U with Dr. Jessica Crawford for bariatric surgery at [facility], her o (more content not included)... [facility] Comment on above: Result Comment: Elec tronically Signed By: Leandra Wallace PA-C\.br\Date and Time Signed: 03/19/24 20:53 EDT\.br\Electronically Co-Signed By: Silvio Sharp DO\.br\Date and Time Co-Signed: 03/22/24 18:50 EDT 03-22-2024 Note Progress Note-Physic fredy Basic Information 48-year-old male with asthma history of diabetes, hypertension who presented with acute on chronic ventral hernia, recurrence within 2 weeks, concern for increasing mesenteric edema and being symptomatic. Now status post ex lap with primary repair of ventral hernia on 03/15/2024 Hospital Course: 03/14/2024: Admitted for observation, pain improved 03/15/2024: Taken to OR for ex-lap, lysis of adhesions, resection of hernia sac, primary repair of ventral hernia, bilateral TAP blocks 03/16/2024: +flatus, +nausea but no vomiting. on CARDIOLOGY RN for pain 03/17/2024: tolerating cld, downtrending H/H Subjective No acute events overnight. Patient feeling improved. Passing flatus, having BM, patient does endorse black BM. Occult stool ordered. Review of Systems All organ systems are reviewed. Pertinent positive and negative findings as mentioned in the HPI. Objective Intake & Output No qualifying data available. Physical Exam GENERAL: alert, pleasant, conversational. HEENT: normocephalic. oral mucosa moist. CARDIOVASCULAR: RRR. PULMONARY: CTAB. breathing comfortably on room air ABDOMINAL: Abdomen is soft, appropriately tender in the midline. Nondistended. Incision clean, dry, intact. Patient is wearing a abdominal binder. GHULAM drain in the subcutaneous space noted with blood-tinged serosanguineous output, GHULAM drain output is clearing appropriately. EXTREMITIES: moves all extremities with equal strength NEUROLOGICAL: AxO x3 Lab Results No qualifying data available. Assessment/Plan 48-year-old male with asthma history of diabetes, hypertension who presented with acute on chronic ventral hernia, recurrence within 2 weeks, concern for increasing mesenteric edema and being symptomatic. Now status post ex lap with primary repair of ventral hernia on 03/15/2024 -Patient tolerating a diet, concern for melena, occult stool pending. - Tylenol 650 mg q 6 hrs, Oxy 5-10 mg q4hrs prn for moderate/severe pain, Dilaudid 0.5mg q 3 hours prn for breakthrough pain - HLIV - Continue OT/PT therapies. - Maintain O2 sats > 94%. Continue pulmonary toilet, encourage IS. - No indication for abx - No indication for transfusion. Patient has had downtrending hemoglobin, will continue to monitor repeat CBC q8 hours - Continue SCDs and lovenox for DVT ppx. - Maintain PIVs, GHULAM drain -No acute cardiac issues - No indication for ulcer ppx - History of diabetes, continue insulin sliding scale and 10 mg of Glargine at bedtime. Glucose acceptable today. Hold home metformin and glimepiride - Hold home losartan - Continue home venlafaxine, oxybutynin, atorvastatin and buspirone Anticipate discharge within the next 24 hours Leandra Wallace PA-C Trauma Surgery/Surgical Critical Care/Emergency General Surgery *For urgent issues arising after 4PM during the week or on weekends/holiday, please page the trauma/EGS attending instructional interventionist. This patient's plan of care was discussed with Trauma/Emergency General Surgery attending, Dr. Sharp Problem List/Past Medical History Ongoing Abdominal hernia Anxiety Left groin mass Morbid obesity Recurrent scrotal infection Scrotal abscess Smoker Type II diabetes mellitus Historical No qualifying data Medications Inpatient No active inpatient medications Home acetaminophen 325 mg Tab, 975 mg= 3 tab(s), Oral, q6hr atorvastatin 20 mg Tab, Daily busPIRone 5 mg Tab, Oral, BID docusate sodium 100 mg Cap, 100 mg= 1 cap(s), Oral, BID glimepiride 4 mg Tab, Oral, Daily losartan 25 mg Tab, Oral, Daily metformin 1000 mg oral tablet, extended release, Oral, Daily minocycline 100 mg Cap, Oral, q12hr Mounjaro 5 mg/0.5 mL subcutaneous solution oxybutynin 5 mg ER Tab, Daily oxyCODONE 5 mg Tab, 5 mg= 1 tab(s), Oral, q6hr, PRN venlafaxine 75 mg Cap-ER, Oral, Daily [facility] Comment on above: Result Comment: Elec tronically Signed By: Leandra Wallace PA-C\.br\Date and Time Signed: 03/20/24 00:22 EDT\.br\Electronically Co-Signed By: Silvio Sharp DO\.br\Date and Time Co-Signed: 03/22/24 18:50 EDT 03-20-2024 Note Consultation Note Chief Complaint My hernia popped up and I was really in pain like I nfeel Im gonna Reason for Consultation Melena, no previous history of screening colonoscopy History of Present Illness 48-year-old male admitted to the trauma [facility] service following exploratory laparotomy and repair of ventral hernia and an episode of melena while admitted to their service. Patient states that the melena has since resolved however as he is never had a colonoscopy before and his hemoglobin has remained stable we are consulted to evaluate patient for outpatient EGD and colonoscopy. He denies a family history of colon cancer his aunt who is in the room with us during the patient interview has a history of ulcerative colitis. Other than the obstructive symptoms which prompted his recent laparotomy he has had no changes in bowel habits. Review of Systems Negative other than stated as above Physical Exam Vitals & Measurements T: 36.7 ?C(Oral) HR: 85(Monitored) RR: 16 BP: 154/80 SpO2: 98% No acute distress Prevena wound VAC over incision Assessment/Plan 48-year-old male one-time episode of melena no previous history of colonoscopy 1. Ventral hernia (K43.9: Ventral hernia without obstruction or gangrene) Will follow-up with [facility] for management of hernia 2. Melena (K92.1: Melena) EGD in outpatient setting 3. Encounter for screening colonoscopy (Z12.11: Encounter for screening for malignant neoplasm of colon) Colonoscopy in outpatient setting Problem List/Past Medical History Ongoing Abdominal hernia Anxiety Left groin mass Morbid obesity Recurrent scrotal infection Scrotal abscess Smoker Type II diabetes mellitus Historical No qualifying data Procedure/Surgical History Drainage of scrotal abscess (03/21/2016), Tonsillectomy. Medications Inpatient No active inpatient medications Home acetaminophen 325 mg Tab, 975 mg= 3 tab(s), Oral, q6hr atorvastatin 20 mg Tab, Daily busPIRone 5 mg Tab, Oral, BID docusate sodium 100 mg Cap, 100 mg= 1 cap(s), Oral, BID glimepiride 4 mg Tab, Oral, Daily losartan 25 mg Tab, Oral, Daily metformin 1000 mg oral tablet, extended release, Oral, Daily minocycline 100 mg Cap, Oral, q12hr Mounjaro 5 mg/0.5 mL subcutaneous solution oxybutynin 5 mg ER Tab, Daily oxyCODONE 5 mg Tab, 5 mg= 1 tab(s), Oral, q6hr, PRN venlafaxine 75 mg Cap-ER, Oral, Daily Allergies No Known Medication Allergies Social History Alcohol Substance Abuse - High Risk, 03/04/2024 Current, Marijuana, Daily, 08/14/2023 Marijuana, 08/13/2023 Current, 08/13/2023 Marijuana, 08/13/2023 Tobacco Former smoker, quit more than 30 days ago Tobacco Use:., 08/14/2023 Former smoker, quit more than 30 days ago Tobacco Use:. Cigarettes, 2 per day. Yes, 11/05/2022 Family History Family history is negative Immunizations Vaccine Date Status SARS-CoV-2 (COVID-19) mRNA BNT-162b2 vax 04/25/2021 Recorded SARS-CoV-2 (COVID-19) mRNA BNT-162b2 vax 03/31/2021 Recorded [facility] Comment on above: Result Comment: Elec tronically Signed By: Karina MARTINEZ, Demarco Zavaletabr\Date and Time Signed: 03/20/24 15:24 EDT 03-19-2024 Hospital Discharge instructions Patient Education 03/19/2024 15:03:31 [facility] (CUSTOM) [place], [place] Neno Reddy MD, FACS DISCHARGE INSTRUCTIONS CARING FOR YOUR THOMAS-MICHAELS DRAINAGE TUBE You have been discharged with a Thomas-Michaels drainage tube. This tube will help healing and reduce the risk of infection by removing fluid through your incision. It is attached to a drain or collection device where you will see fluid and blood. A bandage at the incision site will protect the open area from infection. You may feel some burning and pulling from the stitch that holds the tube in place. Your drain will be removed when the amount of drainage lessens, usually 5-7 days after surgery. The henrique will be removed in 10-14 days after surgery. HOME CARE Don t sleep on the same side as the tube. Secure the tube and bag inside your clothing. This will prevent the tube form being pulled out. Empty your drain at least three times a day: in the morning, afternoon and before bed. Empty it more often as needed. Strip the tubing as much as possible. Lift the opening on the drain. Drain the fluid into a measuring cup. Record the amount of fluid and time that you empty the drain. Share this information with your doctor on your next visit. Squeeze the bulb with your hands until all the air is out of the bulb. Close the opening. Change the dressing around the tube every day. Wash your hands. Remove the old bandage. You may shower and get the drain site wet. Put a new bandage on the incision and tube site. Place one gauze under the drain tube and one over the drain tube and tape it in place. FOLLOW-UP Make a follow-up appointment with your doctor as directed on your discharge paperwork. WHEN TO CALL YOUR DOCTOR call immediately if you have any of the following: Pain, swelling, or fluid around the tube Stitches that become infected Redness or warmth around the incision Tube that falls out Nausea and vomiting Foul smell from incision site Chills or fever above 100 degrees F Fluid draining from your incision. An incision that does not heal Drainage that changes from light pink to dark red GHULAM OUTPUT IN CC'S #1 AMAFTERNOONPM #2 AMAFTERNOONPM Written: 05-1803/19/2024 15:03:21 Open Hernia Repair, Adult, Care After, [id number] Open Hernia Repair, Adult, Care After What can I expect after the procedure? After the procedure, it is common to have: Mild discomfort. Slight bruising. Mild swelling. Pain in the belly (abdomen). A small amount of blood from the cut from surgery (incision). Follow these instructions at home: Your doctor may give you more specific instructions. If you have problems, call your doctor. Medicines Take kcqv-nkn-[id number] and prescription medicines only as told by your doctor. If told, take steps to prevent problems with pooping (constipation). You may need to: ?Drink enough fluid to keep your pee (urine) pale yellow. ?Take medicines. You will be told what medicines to take. ?Eat foods that are high in fiber. These include beans, whole grains, and fresh fruits and vegetables. ?Limit foods that are high in fat and sugar. These include fried or sweet foods. Ask your doctor if you should avoid driving or using machines while you are taking your medicine. Incision care Follow instructions from your doctor about how to take care of your incision. Make sure you: ?Wash your hands with soap and water for at least 20 seconds before and after you change your bandage (dressing). If you cannot use soap and water, use hand drop forger helper. ?Change your bandage. ?Leave stitches or skin glue in place for at least 2 weeks. ?Leave tape strips alone unless you are told to take them off. You may trim the edges of the tape strips if they curl up. Check your incision every day for signs of infection. Check for: ?More redness, swelling, or pain. ?More fluid or blood. ?Warmth. ?Pus or a bad smell. Wear loose, soft clothing while your incision heals. Activity Rest as told by your doctor. Do not lift anything that is heavier than 10 lb (4.5 kg), or the limit that you are told. Do not play contact sports until your doctor says that this is safe. If you were given a sedative during your procedure, do not drive or use machines until your doctor says that it is safe. A sedative is a medicine that helps you relax. Return to your normal activities when your doctor says that it is safe. General instructions Do not take baths, swim, or use a hot tub. Ask your doctor about taking showers or sponge baths. Hold a pillow over your belly when you cough or sneeze. This helps with pain. Do not smoke or use any products that contain nicotine or tobacco. If you need help quitting, ask your doctor. Keep all follow-up visits. Contact a doctor if: You have any of these signs of infection in or around your incision: ?More redness, swelling, or pain. ?More fluid or blood. ?Warmth. ?Pus. ?A bad smell. You have a fever or chills. You have blood in your poop (stool). You have not pooped (had a bowel movement) in 2 3 days. Medicine does not help your pain. Get help right away if: You have chest pain, or you are short of breath. You feel faint or light-headed. You have very bad pain. You vomit and your pain is worse. You have pain, swelling, or redness in a leg. These symptoms may be an emergency. Get help right away. Call your local emergency services (911 in the [place] Do not wait to see if the symptoms will go away. Do not drive yourself to the hospital. Summary After this procedure, it is common to have mild discomfort, slight bruising, and mild swelling. Follow instructions from your doctor about how to take care of your cut from surgery (incision). Check every day for signs of infection. Do not lift heavy objects or play contact sports until your doctor says it is safe. Return to your normal activities as told by your doctor. This information is not intended to replace advice given to you by your health care provider. Make sure you discuss any questions you have with your health care provider. Document Revised: 04/10/2021 Document Reviewed: 04/10/2021 [employer] Patient Education 2022 [employer]. 03/17/2024 07:59:08 Diet - Basic Carbohydrate Counting (Custom) Carbohydrate Counting for People with Diabetes Why Is Carbohydrate Counting Important? Counting carbohydrate servings may help you to control your blood glucose level so that you feel better. The balance between the carbohydrates you eat and insulin determines what your blood glucose level will be after eating. Carbohydrate counting can also help you plan your meals. Which Foods Have Carbohydrates? Foods with carbohydrates include: ? ?reads, crackers, and cereals - Pasta, rice, and grains - Starchy vegetables, such as potatoes, corn, and peas - Beans and legumes - Milk, soy milk, and yogurt - Fruits and fruit juices - Sweets, such as cakes, cookies, ice cream, jam, and jelly Carbohydrate Servings In diabetes meal planning, 1 serving of a food with carbohydrate has about 15 grams of carbohydrate: - Check serving sizes with measuring cups and spoons or a food scale. - Read the Nutrition Facts on food labels to find out how many grams of carbohydrate are in foods you eat. - The food lists in this handout show portions that have about 15 grams of carbohydrate. Food Lists for Carbohydrate Counting 1 serving = about 15 grams of carbohydrate Starches 1 slice bread (1 ounce) 1 tortilla (6-inch size) 1/4 large bagel (1 ounce) 2 taco shells (5-inch size) 1/2 hamburger or hot dog bun (1 ounce) 3/4 cup xkaus-el-dwt cereal 1/2 cup cooked cereal 1 cup broth-based soup 4-6 small crackers ? cup pasta or rice (cooked) cup beans, peas, corn, sweet potatoes, winter squash, or mashed or boiled potatoes (cooked) 1/2 large baked potato (3 ounces) ounce pretzels, potato chips, or tortilla chips 3 cups popcorn (popped) Fruit 1 small fresh fruit (4 ounces) cup canned fruit cup dried fruit (2 tablespoons) 17 small grapes (3 ounces) 1 cup melon or berries 2 tablespoons raisins or other dired fruit cup fruit juice Milk 1 cup fat-free or reduced-fat milk 1 cup soy milk ? cup (6 ounces) fat-free yogurt sweetened with sugar-free sweetener Sweets and Desserts 2-inch square cake (unfrosted) 2 small cookies (? ounce) cup ice cream or frozen yogurt cup sherbet or sorbet 1 tablespoon syrup, jam, jelly, table sugar, or honey 2 tablespoons light syrup Other Foods - Count 1 cup raw vegetables or cup cooked nonstarchy vegetables as zero carbohydrate servings or free foods. If you eat 3 or more servings at one meal, count them as 1 carbohydrate serving. - Foods that have less than 20 calories in each serving also may be counted as zero carbohydrate servings or free foods. - Count 1 cup of casserole or other mixed foods as 2 carbohydrate servings. Meal Planning Tips A meal plan tells you how many carbohydrate servings to eat at your meals and snacks. For many adults, eating 3 to 5 servings of carbohydrate foods at each meal and 1 or 2 carbohydrate servings for each snack works well. In a healthy daily meal plan, most carbohydrates come from: 5 servings of fruits and vegetables 3 servings of whole grains 2 to 4 servings of milk or milk products - Check your blood glucose level regularly. It can tell you if you need to adjust the timing of when you eat carbohydrates. - Eating foods that have fiber, such as whole grains, and having very few salty foods is good for your health. ? Eat 4 to 6 ounces of meat or other protein foods (such as soybean burgers) each day. - Choose low-fat sources of protein, such as lean beef, lean pork, chicken, fish, low-fat cheese, or vegetarian foods such as soy. ? Eat some healthy fats, such as olive oil, canola oil, and nuts. ? Eat very little saturated fats. These unhealthy fats are found in butter, cream, and high-fat meats, such as rodriguez and sausage. ? Eat very little or no trans fats. These unhealthy fats are found in all foods that list partially hydrogenated oil as an ingredient. Label Reading Tips The Nutrition Facts panel on a label lists the grams of total carbohydrate in 1 standard serving. The label s standard serving may be larger or smaller than 1 carbohydrate serving. To figure out how many carbohydrate servings are in the food: Look first at the label s standard serving size. Then check the grams of total carbohydrate. This is the amount of carbohydrate in 1standard serving. Divide the grams of total carbohydrate by 15. This number equals the number of carbohydrate servings in 1 standard serving. Remember: 1 carbohydrate serving is 15 grams of carbohydrate. Note: You may ignore the grams of sugars on the Nutrition Facts panel because they are included in the grams of total carbohydrate. Sample 1-Day Menu Total Carbohydrate Servings: 15 Breakfast: 1 small banana (1 carbohydrate serving) cup corn flakes (1 carbohydrate serving) 1 cup fat-free or low-fat milk (1 carbohydrate serving) 1 slice whole wheat bread (1 carbohydrate serving) 1 teaspoon soft margarine Lunch:2 ounces lean meat (for sandwich) 2 slices whole wheat bread (2 carbohydrate servings) Raw vegetables: 3-4 carrot sticks, 3-4 celery sticks, 2 lettuce leaves 1 cup fat-free or low-fat milk (1 carbohydrate serving) 1 small apple (1 carbohydrate serving) Snack: cup canned apricots (1 carbohydrate serving) ounce unsalted mini-pretzels (1 carbohydrate serving) Supper: 3 ounces lean roast beef large baked potato (2 carbohydrate servings) 1 tablespoon reduced-fat sour cream cup green beans 1 vegetable salad: lettuce, cup raw vegetables, and 1 tablespoon light salad dressing 1 small whole wheat dinner roll (1 carbohydrate serving) 1 teaspoon soft margarine 1 cup melon balls (1 carbohydrate serving) Snack:6 ounces low-fat fruit yogurt with sugar-free sweetener (1carbohydrate serving) 2 tablespoons unsalted nuts Follow Up Care 03/14/2024 17:40:12 With:trauma clinic Address: [address] [place] [address] 3, second floor, [address] [place] [address]- [phone] When:03/25/2024 09:30:00 Comments:Call to schedule/confirm followup appointment for wound check and GHULAM drain removal [facility] 03-18-2024 Note Progress Note-Physic fredy Basic Information CHRISTIAN SHELBY is a 48 Years-old Male with a PMHx of obesity and diabetes, admitted for observation and possible recurrent obstructive symptoms in setting of known ventral hernia. CT scan demonstrated findings of fat and bowel containing hernia, but with increased mesenteric edema compared to prior scan approximately one week prior. Hospital Course: 03/14/2024: Admitted for observation, pain improved 03/15/2024: Taken to OR for ex-lap, lysis of adhesions, resection of hernia sac, primary repair of ventral hernia, bilateral TAP blocks Subjective Patient recovering well from surgery today. Endorses appropriate pain control. Reports passing flatus, no nausea or emesis since surgery. No other complaints at this time. Review of Systems All organ systems are reviewed. Pertinent positive and negative findings as mentioned in the HPI. Objective Vitals & Measurements T: 36.6 ?C(Axillary) TMIN: 36.1 ?C(Temporal Artery) TMAX: 36.6 ?C(Axillary) HR: 97(Monitored) RR: 19 BP: 125/71 SpO2: 96% WT: 181.4 kg Intake & Output This visit (24 hour periods starting at 07:00 EDT) 03/16/24 * 03/15/24 03/14/24 Total Summary Intake mL -- 1,717.03 1,567.96 Output mL -- 1,715 2 Fluid Balance -- 2.03 1,565.96 Intake (18) Lactated Ringers Injection mL -- 1,600 -- Lactated Ringers Injection 1,000 mL mL -- 50 558.96 Oral Intake mL -- -- -- Sodium Chloride 0.9% mL -- -- 1,000 fentanyl mL -- 2 -- hydrALAZINE mL -- 0.5 0.5 hydromorphone mL -- 2 1.5 ketorolac mL -- 3 -- lidocaine mL -- 2 -- midazolam mL -- 2 -- morphine mL -- -- 1 ondansetron mL -- 4 6 orphenadrine mL -- 4 -- phenylephrine mL -- 0.03 -- propofol mL -- 20 -- rocuronium mL -- 16.5 -- succinylcholine mL -- 9 -- sugammadex mL -- 2 -- Total -- 1,717.03 1,567.96 Output (6) EBL Surgery mL -- 100 -- Gastric Tube Output mL -- 15 -- Other: GHULAM Abdomen mL -- 30 -- Urine Catheter mL -- 1,405 -- Urine Count mL -- 165 -- Urine Voided mL -- -- 2 Total -- 1,715 2 Counts (1) Urine Count mL -- 165 -- * This column has not completed the indicated time period. Physical Exam GENERAL: alert, pleasant, conversational. HEENT: normocephalic. oral mucosa moist. CARDIOVASCULAR: RRR. PULMONARY: CTAB. breathing comfortably on room air ABDOMINAL: abdomen is soft, appropriately tender, mildly distended. midline incision with preveena in place. No erythema, drainage, induration, fluctuance noted. EXTREMITIES: moves all extremities with equal strength NEUROLOGICAL: AxO x3 Lab Results WBC: 16.5 E9/L High (03/16/24 06:28:00) RBC: 4.2 E12/L Low (03/16/24 06:28:00) HGB: 11.7 gm/dL Low (03/16/24 06:28:00) Hct: 35.3 % Low (03/16/24 06:28:00) MCV: 84.4 fL (03/16/24:28:00) MCH: 27.9 pg (03/16/24:28:00) MCHC: 33.1 gm/dL (03/16/24 06:28:00) RDW: 16.3 % High (03/16/24:28:00) Platelet: 340 E9/L (03/16/24 06:28:00) MPV: 7.1 fL (03/16/24 06:28:00) Neutro Auto: 82.1 % High (03/16/24 06:28:00) Lymph Auto: 6.3 % Low (03/16/24:28:00) Imperial Auto: 11.4 % (03/16/24:28:00) Eos Auto: 0 % (03/16/24 06:28:00) Basophil Auto: 0.2 % (03/16/24 06:28:00) Neutro Absolute: 13.5 E9/L High (03/16/24 06:28:00) Lymph Absolute: 1 E9/L (03/16/24 06:28:00) Imperial Absolute: 1.9 E9/L High (03/16/24 06:28:00) Eos Absolute: 0 E9/L (03/16/24 06:28:00) Basophil Absolute: 0 E9/L (03/16/24 06:28:00) Glucose Lvl: 279 mg/dL High (03/16/24:28:00) BUN: 17 mg/dL (03/16/24 06:28:00) Creatinine: 0.8 mg/dL (03/16/24 06:28:00) eGFR: 109 mL/min/1.73 m2 (03/16/24::00) BUN/Creat Ratio: 21 High (03/16/24 06:28:00) Sodium Lvl: 137 mmol/L (03/16/24 06:28:00) Potassium Lvl: 4 mmol/L (03/16/24:28:00) Chloride: 105 mmol/L (03/16/24 06:28:00) CO2: 22 mmol/L (03/16/24 06:28:00) AGAP: 14 mEq/L (03/16/24:28:00) Calcium Lvl: 7.7 mg/dL Low (03/16/24 06:28:00) Magnesium: 1.8 mg/dL (03/16/24 06:28:00) Glucose Cap: 261 mg/dL High (03/16/24 07:34:00) POC Device SN: [id number] (03/16/24 07:34:00) POC User ID: [id number] (03/16/24 07:34:00) POC Username: [email or web address] Username (03/16/24 07:34:00) UA Spec Desc: Craft (03/15/24 10:18:00) UA Color: Light-Yellow (03/15/24 10:18:00) UA Clarity: Clear (03/15/24 10:18:00) UA Spec Grav: 1.038 (03/15/24 10:18:00) UA pH: 6.0 (03/15/24 10:18:00) UA Protein: Trace Abnormal (03/15/24 10:18:00) UA Glucose: 4+ Abnormal (03/15/24 10:18:00) UA Ketones: 3+ Abnormal (03/15/24 10:18:00) UA Bili: Negat (03/15/24 10:18:00) UA Blood: Negat (03/15/24 10:18:00) UA Nitrite: Negat (03/15/24 10:18:00) UA Urobilinogen: Negat (03/15/24 10:18:00) UA Leuk Est: Negat (03/15/24 10:18:00) Assessment/Plan Patient passing flatus post-operatively, pain appropriately controlled. Reactive leukocytosis post-operati (more content not included)... [facility] Comment on above: Result Comment: Elec tronically Signed By: Kelton Montenegro PA-C\.br\Date and Time Signed: 03/16/24 10:33 EDT\.br\Electronically Co-Signed By: Silvio Sharp DO\.br\Date and Time Co-Signed: 03/18/24 13:27 EDT 03-18-2024 Note Progress Note-Physic fredy Basic Information 48-year-old male with asthma history of diabetes, hypertension who presented with acute on chronic ventral hernia, recurrence within 2 weeks, concern for increasing mesenteric edema and being symptomatic. Now status post ex lap with primary repair of ventral hernia on 03/15/2024 Hospital Course: 03/14/2024: Admitted for observation, pain improved 03/15/2024: Taken to OR for ex-lap, lysis of adhesions, resection of hernia sac, primary repair of ventral hernia, bilateral TAP blocks 03/16/2024: +flatus, +nausea but no vomiting. on CARDIOLOGY RN for pain Subjective No acute events overnight. Patient is up and ambulatory. Passing gas today. Mild nausea but he believes this is due to the pain medications, no vomiting. Review of Systems All organ systems are reviewed. Pertinent positive and negative findings as mentioned in the HPI. Objective Vitals & Measurements T: 36.8 ?C(Axillary) TMIN: 36.7 ?C(Oral) TMAX: 36.8 ?C(Axillary) HR: 103(Monitored) RR: 18 BP: 155/79 SpO2: 96% WT: 179.8 kg Intake & Output This visit (24 hour periods starting at 07:00 EDT) 03/17/24 * 03/16/24 03/15/24 Total Summary Intake mL 2 14.5 1,717.03 Output mL 20 1,895 1,715 Fluid Balance -18 -1,880.5 2.03 Intake (16) Lactated Ringers Injection mL -- -- 1,600 Lactated Ringers Injection 1,000 mL mL -- -- 50 Oral Intake mL -- -- -- fentanyl mL -- -- 2 hydrALAZINE mL -- 0.5 0.5 hydromorphone mL -- -- 2 ketorolac mL -- 4 3 lidocaine mL -- -- 2 midazolam mL -- -- 2 ondansetron mL 2 6 4 orphenadrine mL -- 4 4 phenylephrine mL -- -- 0.03 propofol mL -- -- 20 rocuronium mL -- -- 16.5 succinylcholine mL -- -- 9 sugammadex mL -- -- 2 Total 2 14.5 1,717.03 Output (5) EBL Surgery mL -- -- 100 Gastric Tube Output mL -- -- 15 Other: GHULAM Abdomen mL 20 70 30 Urine Catheter mL -- 1,825 1,405 Urine Count mL -- -- 165 Total 20 1,895 1,715 Counts (2) Stool Count -- 1 -- Urine Count mL -- -- 165 * This column has not completed the indicated time period. Physical Exam GENERAL: alert, pleasant, conversational. HEENT: normocephalic. oral mucosa moist. CARDIOVASCULAR: RRR. PULMONARY: CTAB. breathing comfortably on room air ABDOMINAL: Abdomen is soft, appropriately tender in the midline. Nondistended. Incision clean, dry, intact. Patient is wearing a abdominal binder. GHULAM drain in the subcutaneous space noted with blood-tinged serosanguineous output. EXTREMITIES: moves all extremities with equal strength NEUROLOGICAL: AxO x3 Lab Results WBC: 15.8 E9/L High (03/17/24 06:09:00) RBC: 3.6 E12/L Low (03/17/24 06:09:00) HGB: 10.1 gm/dL Low (03/17/24 06:09:00) Hct: 30.6 % Low (03/17/24 06:09:00) MCV: 84.7 fL (03/17/24 06:09:00) MCH: 27.8 pg (03/17/24 06:09:00) MCHC: 32.8 gm/dL (03/17/24 06:09:00) RDW: 16.1 % High (03/17/24 06:09:00) Platelet: 290 E9/L (03/17/24 06:09:00) MPV: 7.4 fL (03/17/24 06:09:00) Neutro Auto: 81.8 % High (03/17/24 06:09:00) Lymph Auto: 8.1 % Low (03/17/24 06:09:00) Imperial Auto: 9.8 % (03/17/24 06:09:00) Eos Auto: 0.1 % (03/17/24 06:09:00) Basophil Auto: 0.2 % (03/17/24 06:09:00) Neutro Absolute: 12.9 E9/L High (03/17/24 06:09:00) Lymph Absolute: 1.3 E9/L (03/17/24 06:09:00) Imperial Absolute: 1.6 E9/L High (03/17/24 06:09:00) Eos Absolute: 0 E9/L (03/17/24 06:09:00) Basophil Absolute: 0 E9/L (03/17/24 06:09:00) Glucose Lvl: 240 mg/dL High (03/17/24 06:09:00) BUN: 16 mg/dL (03/17/24 06:09:00) Creatinine: 0.7 mg/dL (03/17/24 06:09:00) eGFR: 113 mL/min/1.73 m2 (03/17/24 06:09:00) BUN/Creat Ratio: 23 High (03/17/24 06:09:00) Sodium Lvl: 136 mmol/L (03/17/24 06:09:00) Potassium Lvl: 3.8 mmol/L (03/17/24 06:09:00) Chloride: 103 mmol/L (03/17/24 06:09:00) CO2: 25 mmol/L (03/17/24 06:09:00) AGAP: 12 mEq/L (03/17/24 06:09:00) Calcium Lvl: 7.8 mg/dL Low (03/17/24 06:09:00) Phosphorus: 2 mg/dL (03/17/24 06:09:00) Magnesium: 2.2 mg/dL (03/17/24 06:09:00) Glucose Cap: 193 mg/dL High (03/17/24 07:58:00) POC Device SN: [id number] (03/17/24 07:58:00) POC User ID: [id number] (03/17/24 07:58:00) POC Username: GREG FOWLER (03/17/24 07:58:00) Assessment/Plan 1. Ventral hernia (K43.9: Ventral hernia without obstruction or gangrene) Ordered: acetaminophen, 975 mg = 3 tab(s), Tab, Oral, q6hr, Routine, Start date 03/17/24 11:00:00 EDT, 03/17/24 10:19:00 EDT HYDROmorphone, 0.5 mg = 0.5 mL, Injection, IV Push, q3hr PRN Breakthrough Pain, Routine, Start date 03/17/24 10:17:00 EDT, 03/17/24 10:17:00 EDT oxycodone, 5 mg = 1 tab(s), Tab, Oral, q4hr PRN Pain 4-7 for 30 day(s), Stop date 04/16/24 10:16:00 EDT, Routine, Start date 03/17/24 10:17:00 EDT, Pain score 4-7., 03/17/24 10:17:00 EDT oxycodone, 10 mg = 2 tab(s), Tab, Oral, q4hr PRN Pain 8-10 for 30 day(s), Stop date 04/16/24 10 (more content not included)... [facility] Comment on above: Result Comment: Elec tronically Signed By: Leandra Wallace PA-C\.br\Date and Time Signed: 03/17/24 11:06 EDT\.br\Electronically Co-Signed By: Silvio Sharp DO\.br\Date and Time Co-Signed: 03/18/24 13:26 EDT 03-17-2024 Evaluation + Plan note Extrac anoop from: Title:Progress/SOAP Note Author:Madison BEAN, Gato Del Rosario Date:03/17/24 1. Ventral hernia (K43.9: Ve ntral hernia without obstruction or gangrene) Ordered: acetaminophen, 975 mg = 3 tab(s), Tab, Oral, q6hr, Routine, Start date 03/17/24 11:00:00 EDT, 03/17/24 10:19:00 EDT HYDROmorphone, 0.5 mg = 0.5 mL, Injection, IV Push, q3hr PRN Breakthrough Pain, Routine, Start date 03/17/24 10:17:00 EDT, 03/17/24 10:17:00 EDT oxycodone, 5 mg = 1 tab(s), Tab, Oral, q4hr PRN Pain 4-7 for 30 day(s), Stop date 04/16/24 10:16:00 EDT, Routine, Start date 03/17/24 10:17:00 EDT, Pain score 4- 7., 03/17/24 10:17:00 EDT oxycodone, 10 mg = 2 tab(s), Tab, Oral, q4hr PRN Pain 8-10 for 30 day(s), Stop date 04/16/24 10:16:00 EDT, Routine, Start date 03/17/24 10:17:00 EDT, Pain score 8- 10., 03/17/24 10:17:00 EDT Regular Diet Urinary Catheter Removal 48-year-old male with asthma history of diabetes, hypertension who presented with acute on chronic ventral hernia, recurrence within 2 weeks, concern for increasing mesenteric edema and being symptomatic. Now status post ex lap with primary repair of ventral hernia on 03/15/2024 - Will advance to regular diet today. - DC CARDIOLOGY RN pump. Tylenol 650 mg q 6 hrs, Oxy 5-10 mg q4hrs prn for moderate/severe pain, Dilaudid 0.5mg q 3 hours prn for breakthrough pain - HLIV - Continue OT/PT therapies. - Maintain O2 sats > 94%. Continue pulmonary toilet, encourage IS. - No indication for abx - No indication for transfusion. Patient has had downtrending hemoglobin, will continue to monitor repeat CBC in the morning. No signs of active bleeding at this time. Patient is normotensive and not tachycardic. - Continue SCDs and lovenox for DVT ppx. - Maintain PIVs, GHULAM drain -No acute cardiac issues - No indication for ulcer ppx - History of diabetes, continue insulin sliding scale and 10 mg of Glargine at bedtime. Glucose acceptable today. Hold home metformin and glimepiride - Hold home losartan - Continue home venlafaxine, oxybutynin, atorvastatin and buspirone Anticipate discharge within the next 24 hours Leandra Wallace PA-C Trauma Surgery/Surgical Critical Care/Emergency General Surgery *For urgent issues arising after 4PM during the week or on weekends/holiday, please page the trauma/EGS attending instructional interventionist. This patient's plan of care was discussed with Trauma/Emergency General Surgery attending, Dr. Sharp Extracted from: Title:Progress/SOAP Note Author:Lan BEAN, Anoop Coyle. Date:03/16/24 Patient passing flatus post- operatively, pain appropriately controlled. Reactive leukocytosis post-operatively. BG levels remain elevated. - Advanced to CLD this AM, ADAT - Continue LR 125 cc/hr until PO intake is sufficient - Zofran PRN for nausea - IV tylenol, toradol and Dilaudid CARDIOLOGY RN for pain control - Daily CBC - Daily BMP, Mg, Phos- replace lytes PRN for K>4, Mg>2, Phos>3 - Continue Unasyn - Lovenox 40 mg BID, SCDs for DVT ppx - Begin lantus 10 units qhs - Continue insulin sliding scale - Hold home losartan - Hold home metformin and glimepiride - Continue home venlafaxine, oxybutynin, atorvastatin and buspirone - PT/OT Kelton Montenegro PA-C Trauma Surgery/Surgical Critical Care/Emergency General Surgery *For urgent issues arising after 4PM during the week or on weekends/holiday, please page the trauma/EGS attending instructional interventionist. This patient's plan of care was discussed with Trauma/Emergency General Surgery attending, Dr. Sharp Extracted from: Title:ANES Post-operative Note---General Author: Ambrosio Layne Jr, DO Date:03/15/24 Plan Transfer/Discharge: Transfer/Discharge Discharge when meets criteria ( From PACU to floor ). Extracted from: Title:ANES Pre-operative Note 2022 Author:Ambrosio Layne Jr, DO Date:03/15/24 Plan [place] [employer] (ASA) physical status classification: Class IV, E. Anesthetic Preoperative Plan: Anesthesia General. Extracted from: Title:ED Note Author:Baljit Moyer PA-C te:03/14/24 1. Ventral hernia (K43.9: Ve ntral hernia without obstruction or gangrene) Orders: HYDROmorphone, 1 mg = 1 mL, Injection, IV Push, Once, Stop date 03/14/24 17:51:00 EDT, STAT, Start date 03/14/24 17:51:00 EDT, 03/14/24 17:51:00 EDT ondansetron, 4 mg = 2 mL, Injection, IV Push, Once, Stop date 03/14/24 17:51:00 EDT, STAT, Start date 03/14/24 17:51:00 EDT, 03/14/24 17:51:00 EDT Sodium Chloride 0.9% intravenous solution, 1,000 mL, Soln-IV, IV, Once, Stop date 03/14/24 18:10:00 EDT, STAT, Start date 03/14/24 18:10:00 EDT, Infuse over 61, minute(s) Basic Metabolic Panel CBC w/ Auto Diff CT Abdomen/Pelvis w/ Contrast Hepatic Function Panel Lactic Acid Lipase Level PT & PTT Future Appointments Appointment Date:03/25/2024 09:30:00 AM Scheduled Provider: Location:[facility].Trauma Clinic Appointment Type:Trauma Initial Follow Up (FT) [facility]07-08-2024 NoteInterdisciplinary Note - PT PT Evaluation completed with an [facility] score of 17/24. Pt was able to perform bed mobility with CGA/Min. Pt was able to stand with CGA and able to ambulate 4 small steps. Will trial an AD for more stability. Pt unsafe to return home this date, but will follow daily. [facility]ticip[facility] no [facility] NoteInterdisciplinary Note - OT OT [facility] six clicks score 14/24 = SNF. However, anticipate quick progress after post op pain has improved and pt may be more appropriate for HH services at time of Dc. Pt requires increased assist w/all Adls and transfers when compared to prior level of function. Inpatient OT services to follow daily to progress w/ function as pain becomes more tolerable.[facility]07-08-2024 NoteProgress Note-Physician Patient: CHRISTIAN SHELBY Age: 48 years Sex: Male : 1975 Associated Diagnoses: None Author: Ambrosio Layne Jr, DO Preoperative Information Anesthesia Preop Info: Time patient last ate or drank 03/15/2024 00:00:00. Anesthesia history: Patient history: None. Family history+: None. Informed consent: Signed by patient. Re-evaluation prior to induction: Initial evaluation reviewed: No significant change. Review of Systems Eye: Negative except as documented in history of present illness. Ear/Nose/Mouth/Throat: Negative except as documented in history of present illness. Respiratory: Negative except as documented in history of present illness. Cardiovascular: Negative except as documented in history of present illness. Musculoskeletal: Negative except as documented in history of present illness. Neurologic: Negative except as documented in history of present illness. Health Status Allergies: Allergic Reactions (Selected) No Known Medication Allergies Problem list: All Problems Type II diabetes mellitus / SNOMED CT 544613176 / Confirmed Smoker / SNOMED CT 274334084 / Confirmed Morbid obesity / SNOMED CT 090475393 / Confirmed Recurrent scrotal infection / SNOMED CT 5568981914 / Confirmed Abdominal hernia / SNOMED CT 23946734 / Confirmed Left groin mass / SNOMED CT 2271808119 / Confirmed Anxiety / SNOMED CT 25527537 / Confirmed Scrotal abscess / SNOMED CT 38155539 / Confirmed Canceled: Orchitis / SNOMED CT 637112658 Canceled: Scrotal infection / SNOMED CT 6146683996 Canceled: Epididymitis / SNOMED CT 50407924 Histories Procedure history: Drainage of scrotal abscess (846946341) on 03/21/2016 at 40 Years. Tonsillectomy (070382221). Social History Social & Psychosocial Habits Alcohol Comment: Denies use. - 08/14/2023 03:42 - Hunter WILHELM, Elisa Cazares Substance Abuse 03/04/2024 Type: Marijuana 03/04/2024 Use: Current 03/04/2024 Type: Marijuana 03/04/2024 Use: Current Type: Marijuana Frequency: Daily 03/04/2024 Risk Assessment: High Risk Tobacco 03/04/2024 Tobacco Use: Former smoker, quit more Type: Cigarettes Tobacco use per day: 2 Smoking Cessation Yes 03/04/2024 Tobacco Use: Former smoker, quit more . Physical Examination Airway: Mallampati classification: II (soft palate, fauces, uvula visible). Respiratory: adequate air exchange. Cardiovascular: Regular rhythm. Plan [place] [employer] (ASA) physical status classification: Class IV, E. Anesthetic Preoperative Plan: Anesthesia General.[facility] Comment on above:Result Comment: Electronically Signed By: Ambrosio Layne Jr, DO\.br\Date and Time Signed: 03/16/24 11:14 [id number] NoteProgress Note-Physician Patient: CHRISTIAN SHELBY Age: 48 years Sex: Male : 1975 Associated Diagnoses: None Author: Ambrosio Layne Jr, DO Postoperative Information Postoperative disposition: Postoperative disposition: To PACU. Optimetrix number: Optimetrix number [id number]. Anesthetic utilized: General. Health Status Allergies: Allergic Reactions (Selected) No Known Medication Allergies Physical Examination Vital Signs 03/15/2024 14:00 EDT Heart Rate Monitored 96 bpm Respiratory Rate Monitored 22 br/min Systolic Blood Pressure 126 mmHg Diastolic Blood Pressure 75 mmHg Blood Pressure Location Left arm Mean Arterial Pressure, Cuff 92 mmHg SpO2 93 % 03/15/2024 13:55 EDT Heart Rate Monitored 99 bpm Respiratory Rate Monitored 25 br/min Systolic Blood Pressure 139 mmHg Diastolic Blood Pressure 79 mmHg Blood Pressure Location Left arm Mean Arterial Pressure, Cuff 99 mmHg SpO2 96 % 03/15/2024 13:50 EDT Heart Rate Monitored 97 bpm Respiratory Rate Monitored 17 br/min Systolic Blood Pressure 162 mmHg HI Diastolic Blood Pressure 94 mmHg HI Blood Pressure Location Left arm Mean Arterial Pressure, Cuff 117 mmHg SpO2 96 % 03/15/2024 13:47 EDT Temperature Temporal Artery 36.3 DegC Heart Rate Monitored 102 bpm HI Respiratory Rate Monitored 23 br/min Systolic Blood Pressure 157 mmHg HI Diastolic Blood Pressure 119 mmHg HI Blood Pressure Location Left arm Mean Arterial Pressure, Cuff 132 mmHg SpO2 98 % Pain Assessment: Controlled. General: Awake, Alert, Appropriate. Respiratory: Adequate air exchange. Cardiovascular: Stable, Normal peripheral perfusion. Neurological: Normal sensory function, Normal motor function. Assessment Anesthetic outcome No anesthetic complications noted. Adequate pain relief. able to void without difficulty, able to ambulate with assist, tolerating PO intake, no N/V. Review / Management Condition: Stable. Plan Transfer/Discharge: Transfer/Discharge Discharge when meets criteria ( From PACU to floor ).[facility]Result Comment: Electronically Signed By: Ambrosio Layne Jr, DO\.jeniffer\Date and Time Signed: 03/16/24 11:14 [id number] NoteProgress Note-Nurse Patient reports vomiting. Nurse responded to room to find patient gagging. Upon inspection of oral cavity, NG tube was found coiled in the back of throat. NG tube removed. Dr. West notified and advised to leave NG tube out at this time. Will continue to monitor.[facility]07-07-2024 NoteProgress Note-Physician GENERAL INFORMATION EMERGENCY GENERAL SURGERY - STAFF PROGRESS NOTE Patient Name: CHRISTIAN SHELBY Admission Date: 03/14/2024 17:37:38 Patient seen and examined on 03/15/2024 08:00 INTERVAL HISTORY/EVENTS Background: CHRISTIAN SHELBY is a 48 Years-old Male with a PMHx of obesity and diabetes. Patient was last seen at [facility] on 03/04 when he was admitted for observation given pain and possible obstruction of hisknown chronic ventral hernia (over 20 years). At that time, the hernia was partially reduced and hewas able to tolerate a diet without issue and discharged home. This morning he was working on his well puller head on the ground, and when he got up, he felt a sharp pain over the hernia that led him to come back to the ED. He underwent a CT scan that demonstrated similar findings of fat and bowel containing hernia, but with increased mesenteric edema compared to last week. He did not have any upstream bowel dilation. He did have a bowel movement this morning but does not think he has passed flatus since the pain started. Hospital Course: 03/14/2024: Admitted for observation, pain improved 24 Hour Events: Increased pain over hernia overnight with mild nausea, no vomiting, required multiple doses of Dilaudid. Hernia much more tender this morning This visit (24 hour periods starting at 07:00 EDT) 03/15/24 * 03/14/24 03/13/24 Total Summary Intake mL 3.5 1,567.96 -- Output mL -- 2 -- Fluid Balance 3.5 1,565.96 -- Intake (6) Lactated Ringers Injection 1,000 mL mL -- 558.96 -- Sodium Chloride 0.9% mL -- 1,000 -- hydrALAZINE mL 0.5 0.5 -- hydromorphone mL 1 1.5 -- morphine mL -- 1 -- ondansetron mL 2 6 -- Total 3.5 1,567.96 -- Output (1) Urine Voided mL -- 2 -- Total -- 2 -- Counts (0) * This column has not completed the indicated time period. PHYSICAL EXAM Vital Signs: Vital Signs (last 24 hrs) Last Charted Temp Axillary 36.7 DegC (MAR 15 07:42) Heart Rate Monitored 85 bpm (MAR 15 07:44) SBP H 240 mmHg (MAR 15 08:52) DBP H 119 mmHg (MAR 15 08:52) Weight 181.8 kg (MAR 14 23:52) BMI 52.88 (MAR 14 23:52) GENERAL: alert, pleasant, conversational. Resting in bed. HEENT:normocephalic, oral mucosa moist CARDIOVASCULAR: RRR, no murmur/rub/gallop PULMONARY:CTAB ABDOMINAL: Abdomen nontender, no guarding. Nondistended. Large left lower quadrant hernia with chronic skin changes, tender to palpation, not reducible EXTREMITIES: moves all extremities with equal strength, no calf tenderness NEUROLOGICAL: alert and oriented x 3 LABORATORY RESULTS (LAST 24 HOURS) WBC: 12.7 E9/L High (03/15/24 06:28:00) RBC: 5 E12/L (03/15/24 06:28:00) HGB: 14 gm/dL (03/15/24 06:28:00) Hct: 41.8 % (03/15/24:28:00) MCV: 83.2 fL (03/15/24:28:00) MCH: 27.9 pg (03/15/24:28:00) MCHC: 33.5 gm/dL (03/15/24:28:00) RDW: 16.1 % High (03/15/24:28:00) Platelet: 312 E9/L (03/15/24:28:00) MPV: 7 fL (03/15/24 06:28:00) Neutro Auto: 81.2 % High (03/15/24:28:00) Lymph Auto: 12.2 % Low (03/15/24:28:00) Imperial Auto: 6.2 % (03/15/24:28:00) Eos Auto: 0.2 % (03/15/24:28:00) Basophil Auto: 0.2 % (03/15/24::00) Neutro Absolute: 10.3 E9/L High (03/15/24 06:28:00) Lymph Absolute: 1.5 E9/L (03/15/24 06:28:00) Imperial Absolute: 0.8 E9/L (03/15/24:28:00) Eos Absolute: 0 E9/L (03/15/24::00) Basophil Absolute: 0 E9/L (03/15/24::) PT: 10.2 second(s) (03/14/24 18:25:00) INR: 0.91 (03/14/24 18:25:00) PTT: 35.3 second(s) (03/14/24 18:25:00) Glucose Lvl: 215 mg/dL High (03/15/24::00) BUN: 12 mg/dL (03/15/24::) Creatinine: 0.6 mg/dL (03/15/24::) eGFR: 119 mL/min/1.73 m2 (03/15/24::) BUN/Creat Ratio: 20 (03/15/24::) Sodium Lvl: 135 mmol/L (03/15/24::) Potassium Lvl: 4 mmol/L (03/15/24::) Chloride: 103 mmol/L (03/15/24::00) CO2: 22 mmol/L (03/15/24::00) AGAP: 14 mEq/L (03/15/24::) Calcium Lvl: 8.3 mg/dL Low (03/15/24::) Alk Phos: 71 Int._Unit/L (03/14/24:25:00) ALT: 31 Int._Unit/L (03/14/24:25:00) AST: 19 Int._Unit/L (03/14/24 18:25:00) Total Protein: 7.5 gm/dL (03/14/24 18:25:00) Albumin Lvl: 3.8 gm/dL (03/14/24 18:25:00) Globulin: 3.7 gm/dL (03/14/24 18:25:00) A/G Ratio: 1 Low (03/14/24 18:25:00) Bili Total: 0.5 mg/dL (03/14/24 18:25:00) Bili Direct: 0.1 mg/dL (03/14/24 18:25:00) Bili Indirect: 0.4 mg/dL (03/14/24 18:25:00) Phosphorus: 2.6 mg/dL (03/15/24 06:28:00) Lipase Lvl: 10 unit/L Low (03/14/24 18:25:00) Lactic Acid Lvl: 0.8 mmol/L (03/15/24 06:28:00) Magnesium: 1.8 mg/dL (03/15/24 06:28:00) Glucose (more content not included)...[facility]:Result Comment: Electronically Signed By: Brett MARTINEZ, Jason García\.br\Date and Time Signed: 03/15/24 09:33 [id number] NoteProgress Note-Nurse 0230 - This RN communicated with Jason Cheng re: abdominal pain and increasing size of the hernia. Dilaudid .5mg was ordered. 0310 - Reported to Dr. West that patient is having nausea. Zofran 4mg q 6 hours PRN was ordered. 0545 - This RN reached out to Jason Cheng to relay patient's verbalization on the increasing painon the patient's abdomen (hernia site) and informing him of the increasing size of the hernia and it becoming more harder. Dr. West acknowledged the message and ordered the following: NPO with no exceptions, maintain position to be flat on bed. Additionally, Dr West verbalized to assess the patientpersonally soon. These information was relayed to the patient and was acknowledged. This RN provides on-going care.[facility]07-06-20[facility] NoteHistory and Physical EMERGENCY GENERAL SURGERY CONSULT / H&P Patient Name: CHRISTIAN SHELBY Admission Date: 03/14/2024 17:37:38 Chief Complaint: Abdominal pain Referring Physician: Dr. Caceres Patient seen and examined on 03/14/2024 21:00 HISTORY OF PRESENT ILLNESS CHRISTIAN SHELBY is a 48 Years-old Male with a PMHx of obesity and diabetes. Patient was last seen at [facility] on 03/04 when he was admitted for observation given pain and possible obstruction of hisknown chronic ventral hernia (over 20 years). At that time, the hernia was partially reduced and hewas able to tolerate a diet without issue and discharged home. This morning he was working on his well puller head on the ground, and when he got up, he felt a sharp pain over the hernia that led him to come back to the ED. He underwent a CT scan that demonstrated similar findings of fat and bowel containing hernia, but with increased mesenteric edema compared to last week. He did not have any upstream bowel dilation. He did have a bowel movement this morning but does not think he has passed flatus since the pain started. He states that he feels much better now and reports no pain, only mild soreness at the hernia site.He states that his hernia felt firm and was more protuberant while the pain was there, but is now back to his baseline. PAST MEDICAL HISTORY: No qualifying data available. PAST SURGICAL HISTORY: Drainage of scrotal abscess: 03/21/16 Tonsillectomy PRE-ADMISSION MEDICATIONS: atorvastatin: Daily busPIRone: mg = tab(s), Oral, BID glimepiride: mg = tab(s), Oral, Daily losartan: mg = tab(s), Oral, Daily metformin: mg = tab(s), Oral, Daily minocycline: mg = cap(s), Oral, q12hr oxybutynin: Daily tirzepatide venlafaxine: mg = cap(s), Oral, Daily ALLERGIES: Allergies (1) Active Severity Reaction No Known Medication Allergies None Documented SOCIAL HISTORY: Social & Psychosocial History Social History Alcohol Comment: Denies use. (08/14/2023 03:42 - Hunter WILHELM, Elisa Cazares) Substance Abuse High Risk Current, Marijuana, Daily Marijuana Current Marijuana Tobacco Former smoker, quit more than 30 days ago Tobacco Use:. Former smoker, quit more than 30 days ago Tobacco Use:. Cigarettes, 2 per day. Yes Psychosocial History No active psychosocial history has been recorded FAMILY HISTORY: No positive family history reported. REVIEW OF SYSTEMS All organ systems are reviewed. Pertinent positive and negative findings as mentioned in the HPI. PHYSICAL EXAM General: alert?, no acute? distress Skin: warm?, dry? Head: normocephalic? Eye: normal? conjunctiva, sclera clear? ENMT: oral mucosa moist?, Cardiovascular: regular? rate and rhythm, normal? peripheral perfusion Respiratory: Lungs CTA?,respirations non labored? Chest wall: no? deformity. Gastrointestinal: soft?, non distended?, large left lower quadrant hernia with chronic skin changes, hernia is soft and only partially reducible, per patient, this is baseline Back: No? tenderness, Normal? ROM, Normal? alignment. Extremities: no? deformity, no? trauma Neurological: oriented x 4?, LOC appropriate for age?, speech normal? Psychiatric: cooperative?, affect appropriate for age? BASIC LABS Last 24 Hours Basic Metabolic Panel: Hematology: : () HGB: 14.8 (03/14/24) : () : () : () : () : () : () : () : () Creatinine: 0.6 (03/14/24) : () Additional - Last 24 Hours A/G Ratio: 1.0 (03/14/24) AGAP: 17 (03/14/24) Albumin Lvl: 3.8 (03/14/24) Alk Phos: 71 (03/14/24) ALT: 31 (03/14/24) AST: 19 (03/14/24) Basophil Absolute: 0.1 (03/14/24) Basophil Auto: 0.4 (03/14/24) Bili Direct: 0.1 (03/14/24) Bili Indirect: 0.4 (03/14/24) Bili Total: 0.5 (03/14/24) BUN: 14 (03/14/24) BUN/Creat Ratio: 23 (03/14/24) Calcium Lvl: 8.4 (03/14/24) Chloride: 104 (03/14/24) CO2: 18 (03/14/24) eGFR: 119 (03/14/24) Eos Absolute: 0.0 (03/14/24) Eos Auto: 0.2 (03/14/24) Globulin: 3.7 (03/14/24) Glucose Lvl: 232 (03/14/24) Hct: 42.7 (03/14/24) INR: 0.91 (03/14/24) Lactic Acid Lvl: 1.2 (03/14/24) Lipase Lvl: 10 (03/14/24) Lymph Absolute: 1.2 (03/14/24) Lymph Auto: 8.8 (03/14/24) MCH: 29.1 (03/14/24) MCHC: 34.6 (03/14/24) MCV: 84.0 (03/14/24) Imperial Absolute: 0.7 (03/14/24) Imperial Auto: 4.8 (03/14/24) MPV: 7.1 (03/14/24) Neutro Absolute: 11.9 (03/14/24) Neutro Auto: 85.8 (03/14/24) Platelet: 314.0 (03/14/24) Potassium Lvl: 4.2 (03/14/24) PT: 10.2 (03/14/24) PTT: 35.3 (03/14/24) RBC: 5.1 (03/14/24) RDW: 15.9 (03/14/24) Sodium Lvl: 135 (03/14/24) Total (more content not included)...[facility] HospitalComment on above: Result Comment: Electronically Signed By: Brett MARTINEZ, Jason García\.br\Date and Time Signed: 03/14/24 21:53 [id number] NoteProgress Note-Nurse Dr. Caceres aware of patient [facility]07-06-2024 Note Progress Note-[facility]2024 NoteProgress Note-Nurse Dr. Ferreira aware patient had a dose of Zofran when arrived and verbalized to give the other dose.[facility]06-27-[facility] NoteDischarge Summary [place] [address] CHRISTIAN SHELBY Date of : 1975 48 Years Male Attending Liz MARTINEZ, Esvin Pierre Date of Admission 03/04/2024 Date of Discharge 03/05/2024 DIAGNOSES: Incarcerated ventral hernia, reduced at bedside PROCEDURES: Procedures No Procedures Documented DISCHARGE MEDICATIONS: DISCHARGE MEDICATIONS Medication List Active Medications Ordered acetaminophen: 650 mg, 2 tab(s), Oral, q6hr, PRN: Pain 1-3. bisacodyl: 10 mg, 2 tab(s), Oral, Daily, PRN: Constipation. bisacodyl: 10 mg, 1 supp, Rectal, Daily, PRN: Constipation. docusate: 100 mg, 1 cap(s), Oral, Bedtime, PRN: Constipation. heparin: 5,000 unit(s), 1 mL, SubCutaneous, q8hrFT. insulin lispro: 0-10 unit(s), SubCutaneous, q6hr. labetalol: 10 mg, 2 mL, IV Push, q6hr, PRN: Other (see comment). Lactated Ringers Injection 1,000 mL: 100 mL/hr, IV, Stop: 04/03/24 22:32:00 EDT. magnesium hydroxide: 30 mL, Oral, Daily, PRN: Constipation. oxycodone: 5 mg, 1 tab(s), Oral, q6hr, PRN: Pain 4-7. oxycodone: 10 mg, 2 tab(s), Oral, q6hr, PRN: Pain 8-10. Documented atorvastatin: Daily, 0 Refill(s). busPIRone: mg, tab(s), Oral, BID, 0 Refill(s). glimepiride: mg, tab(s), Oral, Daily, 0 Refill(s). losartan: mg, tab(s), Oral, Daily, 0 Refill(s). metformin: mg, tab(s), Oral, Daily, 0 Refill(s). minocycline: mg, cap(s), Oral, q12hr, 0 Refill(s). oxybutynin: Daily, 0 Refill(s). tirzepatide: 0 Refill(s). venlafaxine: mg, cap(s), Oral, Daily, 0 Refill(s). REASON FOR HOSPITALIZATION: CHRISTIAN SHELBY is a 48 Years-old Male with a past ministry of obesity and known ventral hernia presents ER complaining of abdominal pain that started the hernia. Patient states last around 6 PM he began experiencing increased pain to the area and increase in size of the hernia. Reports that the hernia has been present for the last 20 years, reports that intermittently will become stuck out. Patient states that usually he is able to reduce the hernia by himself at home by laying flat and taking deep breaths. States that he has not been able to reduce the hernia for almost 24 hours. Patient has been passing flatus, no BM. Denies or nausea or vomiting. Denies fevers or chills. Patient had a similar episode approximately 6 months ago that was managed nonoperatively. SIGNIFICANT FINDINGS: ventral hernia, chronic HOSPITAL COURSE: Patient was seen and evaluated in the ER, found to have incarcerated ventral hernia which was reduced at bedside in the ER. Patient had immediate relief afterwards. Patient was admitted to the regular nursing floor for observation due to concern for CT reading of small bowel obstruction. This morning patient had a bowel movement, feels completely resolved, no pain, no nausea or vomiting. Patient able to tolerate regular diet. Patient is discharged home with instructions to follow with bariatricsurgery and the EGS/trauma clinic on an as- needed basis. The patient was seen and examined on the day of discharge with the following findings: GENERAL: alert, pleasant, conversational. HEENT: normocephalic. oral mucosa moist. CARDIOVASCULAR: RRR. PULMONARY: CTAB. breathing comfortably on room air ABDOMINAL: abdomen is nontender., nondistended. Chronic abdominal wall hernia, soft, nontender, reducible. EXTREMITIES: moves all extremities with equal strength NEUROLOGICAL: AxO x3 Given the excellent progress, the patient was determined stable for discharge. ANTICIPATED FOLLOW UP: With: Address: When: trauma clinic [address] [place] [address] 3, second floor, [address] [place], [place] [id number] , only if needed Comments: Please call to make follow up appointment if you have questions or concerns. Leandra Wallace PA-C Trauma, Critical Care, & Emergency General Surgery >30 minutes was spent on the discharge of this patient including final examination of the patient, discussion of the hospital stay, instructions for continuing care to all relevant caregivers, preparation of discharge records, prescriptions and referral forms, and clear identification of reasonsto return to clinic or to emergency room.[facility] HospitalComment on above: Result Comment: Electronically Signed By: Leandra Wallace PA-C\.br\Date and Time Signed: 03/05/24 09:25 EDT\.br\Electronically Co-Signed By: Liz MARTINEZ, Esvin Pierre\.br\Date and Time Co-Signed: 03/05/2413:40 [id number] Hospital Discharge instructions Patient Education 03/05/2024 09:09:24 Hernia, Adult Hernia, Adult A hernia is the bulging of an organ or tissue through a weak spot in the muscles of the abdomen. Hernias develop most often near the belly button (navel) or the area where the leg meets the lower abdomen (groin). Common types of hernias include: Incisional hernia. This type bulges through a scar from an abdominal surgery. Umbilical hernia. This type develops near the navel. Inguinal hernia. This type develops in the groin or scrotum. Femoral hernia. This type develops below the groin, in the upper thigh area. Hiatal hernia. This type occurs when part of the stomach slides above the muscle that separates theabdomen from the chest (diaphragm). What are the causes? This condition may be caused by: Heavy lifting. Coughing over a long period of time. Straining to have a bowel movement. Constipation can lead to straining. An incision made during abdominal surgery. A physical problem that is present at (congenital defect). Being overweight or obese. Smoking. Excess fluid in the abdomen. Undescended testicles in males. What are the signs or symptoms? The main symptom is a skin-colored, rounded bulge in the area of the hernia. However, a bulge may not always be present. It may grow bigger or be more visible when you cough or strain (such as when lifting something heavy). A hernia that can be pushed back into the abdomen (is reducible) rarely causes pain. A hernia that cannot be pushed back into the abdomen (is incarcerated) may lose its blood supply (become strangulated). A hernia that is incarcerated may cause: Pain. Fever. Nausea and vomiting. Swelling. Constipation. How is this diagnosed? A hernia may be diagnosed based on: Your symptoms and medical history. A physical exam. Your health care provider may ask you to cough or move in certain ways to see if the hernia becomes visible. Imaging tests, such as: ?X-rays. ?Ultrasound. ?CT scan. How is this treated? A hernia that is small and painless may not need to be treated. A hernia that is large or painful may be treated with surgery. Inguinal hernias may be treated with surgery to prevent incarceration orstrangulation. Strangulated hernias are always treated with surgery because the strangulation causes a lack of blood supply to the trapped organ or tissue. Surgery to treat a hernia involves pushing the bulge back into place and repairing the weak area ofthe muscle or abdominal wall. Follow these instructions at home: Activity Avoid straining. Do not lift anything that is heavier than 10 lb (4.5 kg), or the limit that you are told, until your health care provider says that it is safe. When lifting heavy objects, lift with your leg muscles, not your back muscles. Preventing constipation Take actions to prevent constipation. Constipation leads to straining with bowel movements, which can make a hernia worse or cause a hernia repair to break down. Your health care provider may recommend that you take these actions to prevent or treat constipation: Drink enough fluid to keep your urine pale yellow. Take qoca-uod-uvielnc or prescription medicines. Eat foods that are high in fiber, such as beans, whole grains, and fresh fruits and vegetables. Limit foods that are high in fat and processed sugars, such as fried or sweet foods. General instructions When coughing, try to cough gently. You may try to push the hernia back in place by very gently pressing on it while lying down. Do nottry to force the bulge back in if it will not push in easily. If you are overweight, work with your health care provider to lose weight safely. Do not use any products that contain nicotine or tobacco. These products include cigarettes, chewing tobacco, and vaping devices, such as e-cigarettes. If you need help quitting, ask your health careprovider. If you are scheduled for hernia repair, watch your hernia for any changes in shape, size, or color.Tell your health care provider about any changes or new symptoms. Take pmez-zta-xjtbdlu and prescription medicines only as told by your health care provider. Keep all follow-up visits. This is important. Contact a health care provider if: You develop new pain, swelling, or redness around your hernia. You have signs of constipation, such as: ?Fewer bowel movements in a week than normal. ?Difficulty having a bowel movement. ?Stools that are dry, hard, or larger than normal. Get help right away if: You have a fever or chills. You have abdominal pain that gets worse. You feel nauseous or you vomit. You cannot push the hernia back in place by very gently pressing on it while lying down. Do not tryto force the bulge back in if it will not go in easily. The hernia: ?Changes in shape, size, or color. ?Feels hard or tender. These symptoms may represent a serious problem that is an emergency. Do not wait to see if the symptoms will go away. Get medical help right away. Call your local emergency services (911 in the [place] Do not drive yourself to the hospital. Summary A hernia is the bulging of an organ or tissue through a weak spot in the muscles of the abdomen. The main symptom is a skin-colored bulge in the hernia area. However, a bulge may not always be present. It may grow bigger or more visible when you cough or strain (such as when having a bowel movement). A hernia that is small and painless may not need to be treated. A hernia that is large or painful may be treated with surgery. Surgery to treat a hernia involves pushing the bulge back into place and repairing the weak part ofthe abdomen. This information is not intended to replace advice given to you by your health care provider. Make sure you discuss any questions you have with your health care provider. Document Revised: 04/03/2021 Document Reviewed: 04/03/2021 [employer] Patient Education 2022 [employer]. Follow Up Care 03/04/2024 13:49:43 With:JOAN OROSCO Address: [address] [place] [phone] [facility] (1) When:7 to 10 days Comments:Call for followup appointmentCall physician if symptoms worsen With:trauma clinic Address: [address] [place] [address] 3, second floor, [address] [place] [address]- [phone] When: only if needed Comments:Please call to make follow up appointment if you have questions or concerns. [facility]06-27-2024 NoteHistory and Physical EMERGENCY GENERAL SURGERY CONSULT / H&P Patient Name: CHRISTIAN SHELBY Admission Date: 03/04/2024 HISTORY OF PRESENT ILLNESS CHRISTIAN SHELBY is a 48 Years-old Male with a past ministry of obesity and known ventral hernia presents ER complaining of abdominal pain that started the hernia. Patient states last around 6 PM he began experiencing increased pain to the area and increase in size of the hernia. Reports that the hernia has been present for the last 20 years, reports that intermittently will become stuck out. Patient states that usually he is able to reduce the hernia by himself at home by laying flat and taking deep breaths. States that he has not been able to reduce the hernia for almost 24 hours. Patient has been passing flatus, no BM. Denies or nausea or vomiting. Denies fevers or chills. Patient had a similar episode approximately 6 months ago that was managed nonoperatively. PAST MEDICAL HISTORY: DM, obesity due to excess calories PAST SURGICAL HISTORY: Drainage of scrotal abscess: 03/21/16 Tonsillectomy PRE-ADMISSION MEDICATIONS: atorvastatin: Daily busPIRone: mg = tab(s), Oral, BID glimepiride: mg = tab(s), Oral, Daily losartan: mg = tab(s), Oral, Daily metformin: mg = tab(s), Oral, Daily minocycline: mg = cap(s), Oral, q12hr oxybutynin: Daily tirzepatide venlafaxine: mg = cap(s), Oral, Daily ALLERGIES: Allergies (1) Active Severity Reaction No Known Medication Allergies None Documented SOCIAL HISTORY: Social & Psychosocial History Social History Alcohol Comment: Denies use. (08/14/2023 03:42 - Hunter WILHELM, Elisa Cazares) Substance Abuse High Risk Current, Marijuana, Daily Marijuana Current Marijuana Tobacco Former smoker, quit more than 30 days ago Tobacco Use:. Former smoker, quit more than 30 days ago Tobacco Use:. Cigarettes, 2 per day. Yes Psychosocial History No active psychosocial history has been recorded FAMILY HISTORY: No positive family history reported. REVIEW OF SYSTEMS All organ systems are reviewed. Pertinent positive and negative findings as mentioned in the HPI. PHYSICAL EXAM General: alert?, no acute? distress Skin: warm?, dry? Head: normocephalic? Eye: normal? conjunctiva, sclera clear? ENMT: oral mucosa moist?, Cardiovascular: regular? rate and rhythm, normal? peripheral perfusion Respiratory: Lungs CTA?,respirations non labored? Chest wall: no? deformity. Gastrointestinal: Abdomen is soft, obese. There is a ventral hernia appreciated to the left side abdominal wall, this was attempted to be reduced at bedside after the patient received pain medication. Hernia was successfully reduced to approximately the chronic size. Patient reported immediate relief upon reduction of the hernia. Area is now soft and nontender to palpation. Back: No? tenderness, Normal? ROM, Normal? alignment. Extremities: no? deformity, no? trauma Neurological: oriented x 4?, LOC appropriate for age?, speech normal? Psychiatric: cooperative?, affect appropriate for age? BASIC LABS Last 24 Hours Basic Metabolic Panel: Hematology: : () HGB: 15.8 (03/04/24) : () : () : () : () : () : () : () : () Creatinine: 0.7 (03/04/24) : () Additional - Last 24 Hours A/G Ratio: 1.1 (03/04/24) AGAP: 21 (03/04/24) Albumin Lvl: 4.2 (03/04/24) Alk Phos: 77 (03/04/24) ALT: 30 (03/04/24) AST: 16 (03/04/24) Basophil Absolute: 0.1 (03/04/24) Basophil Auto: 0.3 (03/04/24) Bili Direct: 0.1 (03/04/24) Bili Indirect: 0.4 (03/04/24) Bili Total: 0.5 (03/04/24) BUN: 12 (03/04/24) BUN/Creat Ratio: 17 (03/04/24) Calcium Lvl: 8.8 (03/04/24) Chloride: 100 (03/04/24) CO2: 16 (03/04/24) eGFR: 113 (03/04/24) Eos Absolute: 0.0 (03/04/24) Eos Auto: 0.2 (03/04/24) Globulin: 4.0 (03/04/24) Glucose Lvl: 272 (03/04/24) Hct: 48.0 (03/04/24) Lipase Lvl: 9 (03/04/24) Lymph Absolute: 1.2 (03/04/24) Lymph Auto: 7.3 (03/04/24) MCH: 27.8 (03/04/24) MCHC: 32.9 (03/04/24) MCV: 84.5 (03/04/24) Imperial Absolute: 0.6 (03/04/24) Imperial Auto: 3.9 (03/04/24) MPV: 7.2 (03/04/24) Neutro Absolute: 13.9 (03/04/24) Neutro Auto: 88.3 (03/04/24) Platelet: 313.0 (03/04/24) Potassium Lvl: 4.3 (03/04/24) RBC: 5.7 (03/04/24) RDW: 15.9 (03/04/24) Sodium Lvl: 133 (03/04/24) Total Protein: 8.2 (03/04/24) WBC: 15.8 (03/04/24) RADIOLOGY -- CT Abdomen/Pelvis w/ Contrast 03/04/24 16:49:06 IMPRESSION: Findings concerning for developing small bowel obstruction secondary to the ventral (more content not included)...[facility] HospitalComment on above:Result Comment: Electronically Signed By: Leandra Wallace PA-C.jeniffer\Date and Time Signed: 03/04/24 17:17 EDT\.br\Electronically Co-Signed By: Liz MARTINEZ, Esvin Pierre\.br\Date and Time Co-Signed: 03/05/2409:18 [id number] Evaluation + Plan noteExtracted from: Title:ED Note Author:Chapito BEAN, Ruiz Phillip te:03/04/24 Small bowel obstruction (K56 .609: Unspecified intestinal obstruction, unspecified as to partial versus complete obstruction) Ventral hernia (K43.9: Ventral hernia without obstruction or gangrene) Orders: HYDROmorphone, 1 mg = 1 mL, Injection, IV Push, Once, Stop date 03/04/24 15:13:00 EDT, STAT, Start date 03/04/24 15:13:00 EDT, 03/04/24 15:13:00 EDT ondansetron, 4 mg = 2 mL, Injection, IV Push, Once, Stop date 03/04/24 15:13:00 EDT, STAT, Start date 03/04/24 15:13:00 EDT, 03/04/24 15:13:00 EDT Sodium Chloride 0.9% intravenous solution, 1,000 mL, Soln-IV, IV, Once, Stop date 03/04/24 15:57:00 EDT, STAT, Start date 03/04/24 15:57:00 EDT, Infuse over 61, minute(s) Sodium Chloride 0.9% intravenous solution, 1,000 mL, Soln-IV, IV, Once, Stop date 03/04/24 15:13:00 EDT, STAT, Start date 03/04/24 15:13:00 EDT, Infuse over 61, minute(s) Basic Metabolic Panel Blood Gas Myron CBC w/ Auto Diff CT Abdomen/Pelvis w/ Contrast eGFR Extra Blue Tube Hepatic Function Panel Lipase Level NPO Diet Place in Status UA with Cult Rflx [facility]12-13-2023 NoteMicrobiology PROCEDURE: Blood Culture Charcoal [R1] SOURCE: Blood BODY SITE: Hand R COLLECTED DATE/TIME: 08/13/2023 20:17 EST RECEIVED DATE/TIME: 08/13/2023 21:08 EST START DATE/TIME: 08/13/2023 21:08 EST FREE TEXT SOURCE: Baljit Moyer PA-C, PA-C, Jansen FINAL REPORTS Final Report [] Verified Date/Time: 08/21/2023 07:00 EST No growth at 7 days. Performing Locations R1: This test was performed at: [facility], [address] [place] [address], [address] [place] [address], [address] [place], [place] [address]Comment on above:Performed By: #### [id number] ####[address] [id number] NoteMicrobiology PROCEDURE: Blood Culture Charcoal [R1] SOURCE: Blood BODY SITE: Hand L COLLECTED DATE/TIME: 08/13/2023 20:10 EST RECEIVED DATE/TIME: 08/13/2023 21:08 EST START DATE/TIME: 08/13/2023 21:08 EST FREE TEXT SOURCE: Baljit Moyer PA-C, PA-C, Jansen FINAL REPORTS Final Report [] Verified Date/Time: 08/21/2023 07:00 EST No growth at 7 days. Performing Locations R1: This test was performed at: [facility], [address] [place] [address], [address] [place] [address], [address] [place], [place] [address]Comment on above:Performed By: #### [id number] ####[address] [id number] NoteDISCHARGE SUMMARY [address] [address] CHRISTIAN SHELBY Date of : 1975 47 Years Male Attending Alesha Christensen MD Date of Admission 08/14/2023 Date of Discharge 08/14/2023 DIAGNOSES: large chronic ventral hernia which was mostly reduced today in the ED PROCEDURES: Procedures No Procedures Documented DISCHARGE MEDICATIONS: DISCHARGE MEDICATIONS Medication List Active Medications Ordered acetaminophen: 650 mg, 2 tab(s), Oral, q4hr, PRN: Pain 1-3. calcium carbonate: 500 mg, 1 tab(s), Oral, q6hr, PRN: Control of stomach acid. enoxaparin: 40 mg, 0.4 mL, SubCutaneous, BID. glucose: 50 mL, IV Push, Once, PRN: Blood glucose. HYDROmorphone: 0.5 mg, 0.5 mL, IV Push, q4hr, PRN: Pain 8-10. insulin lispro: 0-10 Unit(s), SubCutaneous, QIDACHS. ketorolac: 15 mg, 1 mL, IV Push, q6hr, PRN: Pain 4-7. ondansetron: 4 mg, 2 mL, IV Push, q6hr, PRN: Nausea/Vomiting. oxybutynin: 5 mg, 1 tab(s), Oral, Daily. senna: 8.6 mg, 1 tab(s), Oral, Once a day (at bedtime). Sodium Chloride 0.9% intravenous solution 1,000 mL: Bolus, IV, Stop: 09/12/23 19:39:00 EST. venlafaxine: 75 mg, 1 cap(s), Oral, Daily. Documented atorvastatin: Daily, 0 Refill(s). busPIRone: mg, tab(s), Oral, BID, 0 Refill(s). glimepiride: mg, tab(s), Oral, Daily, 0 Refill(s). losartan: mg, tab(s), Oral, Daily, 0 Refill(s). metformin: mg, tab(s), Oral, Daily, 0 Refill(s). minocycline: mg, cap(s), Oral, q12hr, 0 Refill(s). oxybutynin: Daily, 0 Refill(s). tirzepatide: 0 Refill(s). venlafaxine: mg, cap(s), Oral, Daily, 0 Refill(s). REASON FOR HOSPITALIZATION: 47 y/o male presents with severe pain at site of known ventral hernia. He states he has had this hernia for about 20 years. Today, he had sudden worsening and enlargement of the hernia, along with nausea/vomiting and lack of appetite. Last bowel movement 24 hours ago before his hernia became stuck.He states he has been evaluated for possible repair in the past by multiple surgeons, but due to his weight and diabetes, he has been recommended to lose weight/have better diabetic control prior to a repair. The ED team was able to mostly reduce the hernia prior to my eval, and the patient states he felt immediately better. Now, he still has some residual soreness, but the severe pain he presented with is gone and he has an appetite back. No prior abdominal surgeries. He does states he has lost 80 lbs so far. SIGNIFICANT FINDINGS: large chronic ventral hernia which was mostly reduced today in the ED HOSPITAL COURSE: Patient was seen and evaluated in the ED, had a incarcerated ventral hernia which was reduced in the ED. Patient was admitted overnight for observation. On hospital day 1 patient tolerating regular diet, no nausea or vomiting, abdominal pain resolved, labs improving. No indication for acute surgical intervention at this time. Patient given referral to bariatric clinic by his request. Given strictreturn precautions for any worsening or new symptoms of treated hernia or bowel obstruction. All patient's questions were answered. Patient medically clear for discharge home. The patient was seen and examined on the day of discharge with the following findings: GENERAL: alert, pleasant, conversational. HEENT: normocephalic. oral mucosa moist. CARDIOVASCULAR: RRR. PULMONARY: CTAB. breathing comfortably on room air ABDOMINAL: abdomen is nontender, nondistended. No erythema, drainage, induration, fluctuance noted. EXTREMITIES: moves all extremities with equal strength NEUROLOGICAL: AxO x3 Given the excellent progress, the patient was determined stable for discharge. ANTICIPATED FOLLOW UP: With: Address: When: trauma clinic [address] [place] [address] 3, second floor, [address] [place] [address] , only if needed Comments: Please call to make follow up appointment if you have questions or concerns. Our office has placed a referral to the bariatric clinic at [facility], if you do not hear from [facility] please contact this office and we can help facilitate scheduling an appointment. Leandra Wallace PA-C Trauma, Critical Care, & Emergency General Surgery >30 minutes was spent on the discharge of this patient including final examination of the patient, discussion of the hospital stay, instructions for continuing care to all relevant caregivers, preparation of discharge records, prescriptions and referral forms, and clear identification of reasonsto return to clinic or to emergency room. Attestation: Patient with no return of abdominal pain, tolerating diet, having multiple bowel movements. Recommended for abdominal binder, provided one prior to discharge, and referral placed for bariatric [facility] at [facility] to help improve his metabolic syndromeGeorgetown Behavioral HospitalComment on above:Result Comment: Electronically Signed By: Madison BEAN, Leandra Del Rosario\.br\Date and Time Signed: 08/14/23 14:13 EST\.br\Electronically Co-Signed By: Amparo MARTINEZ, Alesha Wray\.br\Date and Time Co-Signed: 08/14/23 17:04 [id number] NoteACUTE CARE SURGERY CONSULT NOTE CHIEF COMPLAINT: painful ventral hernia REFERRING PROVIDER: Baljit Moyer PA-C HISTORY OF PRESENT ILLNESS: 47 y/o male presents with severe pain at site of known ventral hernia. He states he has had this hernia for about 20 years. Today, he had sudden worsening and enlargement of the hernia, along with nausea/vomiting and lack of appetite. Last bowel movement 24 hours ago before his hernia became stuck.He states he has been evaluated for possible repair in the past by multiple surgeons, but due to his weight and diabetes, he has been recommended to lose weight/have better diabetic control prior to a repair. The ED team was able to mostly reduce the hernia prior to my eval, and the patient states he felt immediately better. Now, he still has some residual soreness, but the severe pain he presented with is gone and he has an appetite back. No prior abdominal surgeries. He does states he has lost 80 lbs so far. PAST MEDICAL HISTORY: hidradenitis suppurativa anxiety diabetes HLD PAST SURGICAL HISTORY: Drainage of scrotal abscess: 03/21/16 Tonsillectomy PRE-ADMISSION MEDICATIONS: amoxicillin-clavulanate busPIRone: mg = tab(s), Oral, BID cephalexin: 500 mg = 1 cap(s), Oral, q12hr glimepiride: mg = tab(s), Oral, Daily losartan: mg = tab(s), Oral, Daily metformin: mg = tab(s), Oral, Daily minocycline: mg = cap(s), Oral, q12hr tirzepatide venlafaxine: mg = cap(s), Oral, Daily ALLERGIES: No Known Medication Allergies SOCIAL HISTORY: Substance Abuse Risk Assessment: Medium Risk; Details: Marijuana Details: Current Details: Marijuana Tobacco Details: Former smoker, quit more than 30 days ago Tobacco Use:. Cigarettes, 2 per day. Yes FAMILY HISTORY: No positive family history reported. PHYSICAL EXAMINATION: Temperature 36.4 (18:40) Systolic Blood Pressure 172 (21:58) Diastolic Blood Pressure 83 (21:58) Pulse 94 (21:58) SpO2 100 (21:58) Respiratory Rate 16 (21:58) General: awake, alert, lying in stretcher Skin: warm, pink, dry Head: normocephalic Neck: Trachea midline Eye: normal conjunctiva, sclera clear Cardiovascular: regular rate and rhythm Respiratory: respirations even and unlabored Gastrointestinal: soft, nondistended, nontender around abdomen, lower ventral hernia nontender to palpation, mostly reducible Extremities: no deformity, no trauma Neurological: oriented x 4, GCS 15, speech normal BASIC LABS: WBC: 15.6 E9/L High (08/13/23 19:00:00) RBC: 5.8 E12/L (08/13/23 19:00:00) HGB: 15.8 gm/dL (08/13/23 19:00:00) Hct: 49.5 % High (08/13/23 19:00:00) MCV: 84.8 fL (08/13/23 19:00:00) MCH: 27.1 pg (08/13/23 19:00:00) MCHC: 32 gm/dL (08/13/23 19:00:00) RDW: 15.2 % High (08/13/23 19:00:00) Platelet: 361 E9/L (08/13/23 19:00:00) MPV: 7.5 fL (08/13/23 19:00:00) Neutro Auto: 81.6 % High (08/13/23 19:00:00) Lymph Auto: 10.7 % Low (08/13/23 19:00:00) Imperial Auto: 7.5 % (08/13/23 19:00:00) Eos Auto: 0.1 % (08/13/23 19:00:00) Basophil Auto: 0.1 % (08/13/23 19:00:00) Neutro Absolute: 12.8 E9/L High (08/13/23:00:00) Lymph Absolute: 1.7 E9/L (08/13/23:00:00) Imperial Absolute: 1.2 E9/L High (08/13/23:00:00) Eos Absolute: 0 E9/L (08/13/23:00:00) Basophil Absolute: 0 E9/L (08/13/23:00:00) PT: 11.4 second(s) (08/13/23:00:00) INR: 1 (08/13/23:00:00) PTT: 31.3 second(s) (08/13/23:00:00) Glucose Lvl: 321 mg/dL High (08/13/23:00:00) BUN: 12 mg/dL (08/13/23:00:00) Creatinine: 0.9 mg/dL (08/13/23:00:00) eGFR: 106 mL/min/1.73 m2 (08/13/23:00:00) BUN/Creat Ratio: 13 (08/13/23:00:00) Sodium Lvl: 132 mmol/L Low (08/13/23:00:00) Potassium Lvl: 3.9 mmol/L (08/13/23:00:00) Chloride: 98 mmol/L Low (08/13/23:00:00) CO2: 17 mmol/L Low (08/13/23:00:00) AGAP: 21 mEq/L High (08/13/23:00:00) Calcium Lvl: 9.1 mg/dL (08/13/23:00:00) Alk Phos: 73 Int._Unit/L (08/13/23:00:00) ALT: 36 Int._Unit/L (08/13/23:00:00) AST: 28 Int._Unit/L (08/13/23:00:00) Total Protein: 8.7 gm/dL High (08/13/23:00:00) Albumin Lvl: 4.1 gm/dL (08/13/23:00:00) Globulin: 4.6 gm/dL High (12/05/23 19:00:00) A/G Ratio: 0.9 Low (08/13/23 19:00:00) Bili Total: 0.7 mg/dL (08/13/23 19:00:00) Bili Direct: 0.1 mg/dL (08/13/23 19:00:00) Bili Indirect: 0.6 mg/dL (08/13/23 19:00:00) Lipase Lvl: 26 unit/L (08/13/23 19:00:00) Lactic Acid Lvl: 3.2 mmol/L High (08/13/23 19:00:00) Beta HB Qnt: 2.78 mmol/L High (08/13/23 20:09:00) pH Myron: 7.434 High (08/13/23:26:00) pCO2 Myron: 31.3 mmHg Low (08/13/23:26:00) Sample Type: Venous Draw (08/13/23::00) Sample Site: OTHER (08/13/23::00) FIO2 B (08/13/23:26:00) Allens Test: Not Applicable (08/13/23:26:00) Drawn by: lab (08/13/23:26:00) RADIOLOGY: I personally reviewed the images - my summary: CT abdomen/pelvis: large lower abdominal ventral hernia. Some simple fluid within the hernia, but no free air, no thick (more content not included)...[facility] Comment on above:Result Comment: Electronically Signed By: Amparo MARTINEZ, Alesha Wray\.br\Date and Time Signed: 08/13/23 22:31 [id number] Hospital Discharge instructions Patient Education 11/05/2022 10:52:43 Testicular Self-Exam Testicular Self-Exam A self-examination of your testicles (testicular self-exam) involves looking at and feeling your testicles for abnormal lumps or swelling. Several things can cause swelling, lumps, or pain in your testicles. Some of these causes are: Injuries. Inflammation. Infection. Buildup of fluids around your testicle (hydrocele). Twisted testicles (testicular torsion). Testicular cancer. Why is it important to do a testicular self-exam? Self-examination of the testicles and the left and right groin areas may be recommended if you are at risk for testicular cancer. Your groin is where your lower abdomen meets your upper thighs. You may be at risk for testicular cancer if you have: An undescended testicle (cryptorchidism). A history of previous testicular cancer. A family history of testicular cancer. How to do a testicular self-exam The testicles are easiest to examine after a warm bath or shower. They are more difficult to examine when you are cold. This is because the muscles attached to the testicles retract and pull them up higher or into the abdomen. A normal testicle is egg-shaped and feels firm. It is smooth and not tender. The spermatic cord canbe felt as a firm, spaghetti-like cord at the back of your testicle. Look and feel for changes Stand and hold your penis away from your body. Look at each testicle to check for lumps or swelling. Roll each testicle between your thumb and forefinger, feeling the entire testicle. Feel for: ?Lumps. ?Swelling. ?Discomfort. Check the groin area between your abdomen and upper thighs on both sides of your body. Look and feel for any swelling or bumps that are tender. These could be enlarged lymph nodes. Contact a health care provider if: You find any bumps or lumps, such as a small, hard, pea-sized lump. You find swelling, pain, or soreness. You see or feel any other changes in your testicles. Summary A self-examination of your testicles (testicular self-exam) involves looking at and feeling your testicles for any changes. Self-examination of the testicles and the left and right groin areas may be recommended if you are at risk for testicular cancer. You should check each of your testicles for lumps, swelling, or discomfort. You should check for swelling or tender bumps in your groin area between your lower abdomen and upper thighs. This information is not intended to replace advice given to you by your health care provider. Make sure you discuss any questions you have with your health care provider. Document Released: 12/02/2001 Document Revised: 12/17/2019 Document Reviewed: 07/22/2017 [employer] Patient Education 2020 [employer]. Follow Up Care 10/19/2022 10:02:10 With:KEVAN MARTINEZ, Salvatore Ribeiro, URL Address: [facility] [address], [place] [address]- When: Unknown [facility] evaluation + Plan note No data available for this section [facility] progress note No data available for this section [facility] Summary Purpose Family History No Family History Records Found No data available for this section No Family History Records FoundNo Family History Records FoundNo Family History Records FoundNo Family History Records FoundNo Family History Records FoundNo Family History Records FoundNo Family History Records FoundNo Family History Records FoundNo Family History Records FoundNo Family History Records FoundNo Family History Records FoundNo Family History Records FoundNo Family History Records FoundNo Family History Records FoundNo Family History Records FoundNo Family History Records FoundNo Family History Records FoundNo Family History Records FoundNo Family History Records FoundNo Family History Records FoundNo Family History Records FoundNo Family History Records FoundNo Family History Records FoundNo Family History Records FoundNo Family History Records FoundNo Family History Records FoundNo Family History Records FoundNo Family History Records FoundNo Family History Records FoundNo Family History Records FoundNo Family History Records FoundNo Family History Records FoundNo Family History Records FoundNo Family History Records FoundNo Family History Records FoundNo Family History Records FoundNo Family History Records FoundNo Family History Records FoundNo Family History Records FoundNo Family History Records FoundNo Family History Records FoundNo Family History Records FoundNo Family History Records FoundNo Family History Records FoundNo Family History Records FoundNo Fa cindy History Records FoundNo Family History Records FoundNo Family History Records FoundNo Family History Records FoundNo Family History Records FoundNo Family History Records FoundNo Family History Records FoundNo Family History Records FoundNo Family History Records FoundNo Family History RecordsFoundNo Family History Records Found No data available for this section No Family History Records FoundNo Family History Records FoundNo Family History Records FoundNo Family History Records FoundNo Family History Records FoundNo Family History Records FoundNo Family History Records FoundNo Family History Records FoundNo Family History Records FoundNo Family History Records FoundNo Family History Records FoundNo Family History Records FoundNo Family History Records FoundNo Family History Records FoundNo Family History Records FoundNo Family History Records FoundNo Family History Records FoundNo Family History Records Found Advance Directives No Advanced Directives Records FoundNo Advanced Directives Records FoundNo Advanced Directives Records FoundNo Advanced Directives Records FoundNo Advanced Directives Records FoundNo Advanced Directives Records FoundNo Advanced Directives Records FoundNo Advanced Directives Records FoundNo Advanced Directives Records FoundNo Advanced Directives Records FoundNo Advanced Directives Records FoundNo Advanced Directives Records FoundNo Advanced Directives Records FoundNo Advanced Directives Records FoundNo Advanced Directives Records FoundNo Advanced Directives Records FoundNo Advanced Directives Records FoundNo Advanced Directives Records FoundNo Advanced Directives Records FoundNo Advanced Directives Records FoundNo Advanced Directives Records FoundNo Advanced Directives Records FoundNo Advanced Directives Records FoundNo Advanced Directives Records FoundNo Advanced Directives Records FoundNo Advanced Directives Records FoundNo Advanced Directives Records FoundNo Advanced Directives Records FoundNo Advanced Directives Records FoundNo Advanced Directives Records FoundNo Advanced Directiv es Records FoundNo Advanced Directives Records FoundNo Advanced Directives Records FoundNo AdvancedDirectives Records FoundNo Advanced Directives Records FoundNo Advanced Directives Records FoundNo Advanced Directives Records FoundNo Advanced Directives Records FoundNo Advanced Directives Records FoundNo Advanced Directives Records FoundNo Advanced Directives Records FoundNo Advanced Directives Records FoundNo Advanced Directives Records FoundNo Advanced Directives Records FoundNo Advanced Directives Records FoundNo Advanced Directives Records FoundNo Advanced Directives Records FoundNo Advanced Directives Records FoundNo Advanced Directives Records FoundNo Advanced Directives Records FoundNo Advanced Directives Records FoundNo Advanced Directives Records FoundNo Advanced Directives Records FoundNo Advanced Directives Records FoundNo Advanced Directives Records FoundNo Advanced Directiv es Records FoundNo Advanced Directives Records FoundNo Advanced Directives Records FoundNo AdvancedDirectives Records FoundNo Advanced Directives Records FoundNo Advanced Directives Records FoundNo Advanced Directives Records FoundNo Advanced Directives Records FoundNo Advanced Directives Records FoundNo Advanced Directives Records FoundNo Advanced Directives Records FoundNo Advanced Directives Records FoundNo Advanced Directives Records FoundNo Advanced Directives Records FoundNo Advanced Directives Records FoundNo Advanced Directives Records FoundNo Advanced Directives Records FoundNo Advanced Directives Records FoundNo Advanced Directives Records FoundNo Advanced Directives Records Found Additional Source Comments Patient Care team informatio n (unrecognized section and content) Personnel Name: House , Baljit P Address: Address: [address] [place] [address] Personnel Name: JOAN OROSCO CNP Address: Address: [address] [place] [address] [place] Name: Miroslava Griggs LPN Personnel Name: JOAN OROSCO CNP Address: Address: [address] [place] [address] [place] Name: Miroslava Griggs LPN (unrecognized sect ion and content) No Status Records FoundNo Status Records FoundNo Status Records FoundNo Status Records FoundNo Status Records FoundNo Status Records FoundNo Status Records FoundNo Status Records FoundNo Status Records FoundNo Status Records FoundNo Status Records FoundNo Status Records FoundNo Status Records FoundNo Status Records FoundNo Status Records FoundNo Status Records FoundNo Status Records FoundNo Status Records FoundNo Status Records FoundNo Status Records FoundNo Status Records FoundNo Status Records FoundNo Status Records FoundNo Status Records FoundNo Status Records FoundNo Status Records FoundNo Status Records FoundNo Status Records FoundNo Status Records FoundNo Status Records FoundNo Status Records FoundNo Status Records FoundNo Status Records FoundNo Status Records FoundNo Status Records FoundNo Status Records FoundNo Status Records FoundNo Status Records FoundNo Status Records FoundNo Status Records FoundNo Status Records FoundNo Status Records FoundNo Status Records FoundNo Status Records FoundNo Status Records FoundNo Status Records FoundNo Status Records FoundNo Status Records FoundNo Status Records FoundNo Status Records FoundNo Status Records FoundNo Status Records FoundNo Status Records FoundNo Status Records FoundNo Status Records FoundNo Status Records FoundNo Status Records FoundNo Status Records FoundNo Status Records FoundNo Status Records FoundNo Status Records FoundNo Status Records FoundNo Status Records FoundNo Status Records FoundNo Status Records FoundNo Status Records FoundNo Status Records FoundNo Status Records FoundNo Status Records FoundNo Status Records FoundNo Status Records FoundNo Status Records FoundNo Status Records FoundNo Status Records FoundNo Status Records Found INFORMATION SOURCE (unrecogn ized section and content) DATE CREATED AUTHOR 12/31/2022 [facility] [place] [facility] DATE CREATED AUTHOR AUTHOR'S ORGANIZ ATION 03/06/2024 [facility] DATE CREATED AUTHOR AUTHOR'S ORGANIZ ATION 03/15/2024 [facility] DATE CREATED AUTHOR AUTHOR'S ORGANIZ ATION 03/16/2024 [facility] DATE CREATED AUTHOR AUTHOR'S ORGANIZ ATION 03/17/2024 [facility] DATE CREATED AUTHOR AUTHOR'S ORGANIZ ATION 03/23/2024 [facility] DATE CREATED AUTHOR AUTHOR'S ORGANIZ ATION 03/24/2024 [facility] DATE CREATED AUTHOR AUTHOR'S ORGANIZ ATION 03/25/2024 [facility] DATE CREATED AUTHOR AUTHOR'S ORGANIZ ATION 03/26/2024 [facility] DATE CREATED AUTHOR AUTHOR'S ORGANIZ ATION 03/29/2024 [facility] DATE CREATED AUTHOR AUTHOR'S ORGANIZ ATION 03/29/2024 [facility] EPIC DATE CREATED AUTHOR AUTHOR'S ORGANIZ ATION 04/10/2024 [facility] DATE CREATED AUTHOR AUTHOR'S ORGANIZ ATION 04/11/2024 [facility] DATE CREATED AUTHOR AUTHOR'S ORGANIZ ATION 04/19/2024 [facility] FOR RECORDS PERTAINING TO PATIENTS WHO ARE OR HAVE BEEN ENROLLED IN A CHEMICAL DEPENDENCY/SUBSTANCEABUSE PROGRAM, SOME INFORMATION MAY BE OMITTED. This clinical summary was aggregated from multiple sources. Caution should be exercised in using it in the provision of clinical care. This summary normalizes information from multiple sources, and as a consequence, information in this document may materially change the coding, format and clinical context of patient data. In addition, data may be omitted in some cases. CLINICAL DECISIONS SHOULD BE BASED ON THE PRIMARY CLINICAL RECORDS. [facility] [employer] provides no warranty or guarantee of the accuracy or completeness of information in this document.
[2024-06-13 06:51] LABS: Basophils Absolute Auto 0.1 10^3/uL (0.0-0.1); Basophils Percent Auto 0.5 % (0.2-2.0); Eosinophils Absolute Auto 0.3 10^3/uL (0.0-0.7); Eosinophils Percent Auto 2.8 % (0.9-7.0); Hematocrit 42.4 % (42.0-54.0); Hemoglobin 13.1 g/dL (14.0-18.0); Immature Granulocytes Abs Auto 0.07 10^3/uL (0.00-0.03); Immature Granulocytes Pct Auto 0.6 % (0.0-0.5); Lymphocytes Absolute Auto 3.2 10^3/uL (1.2-3.8); Mean Corpuscular HGB Conc 30.9 g/dL (29.9-35.2); Mean Corpuscular Hemoglobin 26.3 pg (25.9-34.0); Mean Corpuscular Volume 85.1 fL (80.0-94.0); Mean Platelet Volume 8.7 fL (9.5-13.5); Monocytes Absolute Auto 0.9 10^3/uL (0.3-0.8); Monocytes Percent Auto 7.6 % (1.7-12.0); Neutrophils Absolute Auto 7.6 10^3/uL (1.4-6.5); Neutrophils Percent Auto 62.5 % (43.0-75.0); Platelet Count 329 10^3/uL (150-450); Red Blood Count 4.98 10^6/uL (4.70-6.10); Red Cell Distribution Width 14.4 % (11.0-15.0); White Blood Count 12.2 10^3/uL (4.0-11.0)
[2024-06-13 08:59] LABS: Alanine Aminotransferase 38 U/L (16-63); Albumin Globulin Ratio 0.6; Albumin Level 2.9 g/dL (3.4-5.0); Alkaline Phosphatase 80 U/L (46-116); Anion Gap 18.3; Aspartate Amino Transferase 23 U/L (15-37); BUN Creatinine Ratio 21.3; Bilirubin Total 0.3 mg/dL (0.2-1.0); Calcium 8.6 mg/dL (8.5-10.1); Carbon Dioxide 21.8 mmol/L (21.0-32.0); Chloride 100 mmol/L (98-107); Chol HDL Ratio 2.2; Cholesterol 124 mg/dL (<=200); Estimated GFR (African America >60 (>=60 mL/min/1.73m^2); Estimated GFR (Non-African Ame >60 (>=60 mL/min/1.73m^2); Globulin 4.8 g/dL; Glucose 173 mg/dL (74-106); HDL Cholesterol 56 mg/dL (40-60); LDL Cholesterol Calculated 41.2 mg/dL; Potassium 4.1 mmol/L (3.5-5.1); Sodium 136 mmol/L (136-145); Total Protein 7.7 g/dL (6.4-8.2); Triglycerides 134 mg/dL (<=150); VLDL CHOLESTEROL 26.8 mg/dL
[2024-06-13 09:02] LABS: Estimated Average Glucose 189 mg/dL; Glycohemoglobin A1C 8.2 % (4.5-6.2)
== END 2024-06-13 06:35 | disposition home or self-care (01) ==
LOC: LAB 06:34
PROVIDERS: PCP Nurse Practitioner; Visit Provider Nurse Practitioner
DX: E11.628 Type 2 diabetes mellitus with other skin complications (principal); L73.2 Hidradenitis suppurativa; E78.1 Pure hyperglyceridemia; I10 Essential (primary) hypertension
CPT/HCPCS: 36415; 80053; 80061; 82043; 82570; 83036; 85025

== ENCOUNTER 2024-07-23 07:38 | Outpatient (OUT) | payer MEDICARE, SELFPAY ==
--- NOTE | 2024-07-23 07:42 | CT_ITS ---
[address] [address] Patient Name: MANDO SHELBY MRN: [id number] date: 1975 Sex: M Assigned Patient Location: CT Current Patient Location: Accession/Order Number: [id number] Exam Date: 07/23/2024 07:55 Report Date: 07/24/2024 05:09 At the request of: ASTER OROSCO Procedure: CT chest w con EXAMINATION: CT chest w con HISTORY: Lung Nodule COMPARISON: CT chest 07/06/2023, 12/26/2022 TECHNIQUE: Multi-planar CT images were obtained without and/or with IV contrast as indicated by examination type. Axial, Coronal, and Sagittal images. Dose reduction techniques were achieved by using automated exposure control and/or adjustment of mA and/or kV according to patient size and/or use of iterative reconstruction technique. FINDINGS: LUNGS: Stable 6 mm nodule right lung base adjacent the major fissure. Stable appearance of 2 nodules within the lingula, 13 mm with central calcification, and 4.5 mm. No new nodules or acute infiltrates. PLEURA: No mass, effusion, or pneumothorax. VASCULATURE: No abnormality. MAE: No mass or adenopathy. MEDIASTINUM: No mass or adenopathy. CARDIAC: No enlargement or pericardial thickening.. Coronary artery calcifications: AORTA: No aneurysm or dissection. CHEST WALL: No mass or axillary adenopathy. BONES: No bone lesion or fracture. LIMITED ABDOMEN: No suspicious findings Limited images of the upper abdomen. OTHER: Negative. CT/CT chest w con IMPRESSION: 1. Stable appearance of the 3 pulmonary nodules which likely representing granulomas. Additional follow-up CT chest in 6 months is recommended to document stability over a two-year period. Nodules stable for 2 years are generally considered benign. Electronically authenticated by: LAURA FISH Date: 07/24/2024 05:09
--- OUTSIDE RECORDS SUMMARY | 2024-07-23 07:42 | XMS_ITS | CCD ---
Author Organization [facility] Care Team Providers Care 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 Name Role Phone Baljit Bryant Primary Care Physician AICHHOLZ, PACK PULLER JOAN Admitting Unavailable AICHHOLZ, PACK PULLER JOAN Attending Unavailable AICHHOLZ, PACK PULLER JOAN Primary Care Unavailable AICHHOLZ, PACK PULLER JOAN Consulting Unavailable ABE, DR LAURA Ribeiro Consulting Unavailable MATHUR ., DR CHASE Admitting Unavailable MATHUR ., DR CHASE Attending Unavailable AICHHOLZ, PACK PULLER JOAN Primary Care Unavailable MATHUR ., DR CHASE Consulting Unavailable CINTHIA, DARIUSZ Consulting Unavailable AICHHOLZ, PACK PULLER JOAN Admitting Unavailable AICHHOLZ, PACK PULLER JOAN Attending Unavailable AICHHOLZ, PACK PULLER JOAN Primary Care Unavailable AICHHOLZ, PACK PULLER JOAN Consulting Unavailable AICHHOLZ, PACK PULLER JOAN Admitting Unavailable AICHHOLZ, PACK PULLER JOAN Attending Unavailable AICHHOLZ, PACK PULLER JOAN Primary Care Unavailable AICHHOLZ, PACK PULLER JOAN Consulting Unavailable AICHHOLZ, PACK PULLER JOAN Admitting Unavailable AICHHOLZ, PACK PULLER JOAN Attending Unavailable AICHHOLZ, PACK PULLER JOAN Primary Care Unavailable AICHHOLZ, PACK PULLER JOAN Consulting Unavailable AICHHOLZ, PACK PULLER JOAN Admitting Unavailable AICHHOLZ, PACK PULLER JOAN Attending Unavailable AICHHOLZ, PACK PULLER JOAN Primary Care Unavailable AICHHOLZ, PACK PULLER JOAN Consulting Unavailable AICHHOLZ, PACK PULLER JOAN Admitting Unavailable AICHHOLZ, PACK PULLER JOAN Attending Unavailable AICHHOLZ, PACK PULLER JOAN Primary Care Unavailable AICHHOLZ, PACK PULLER JOAN Consulting Unavailable AICHHOLZ, JOAN J Primary [...] Admitting Unavailable Silvio Sharp Consulting Unavailabl e Aron, DO Silvio Hendrickson Consulting Unavail able Sivlio Sharp Consulting Unavailabl e Alesha Christensen Admitting Unavailab Alesha Escalona Attending Unavailab Shannon Rush Attending Unavailable Leandra Wallace Referring Unavailable Demarco Collins Attending Unavailable Demarco Collins Admitting Unavailable Demarco Collins Attending Unavailable Demarco Collins Referring Unavailable MD Jason West Admitting Unavailable MD Jason West Attending Unavailable Silvio Sharp Consulting Unavailkiet e Silvio Sharp Consulting Unavailkiet e Silvio Sharp Consulting Unavailabl e [facility], Joan Unavailable Casey Silva MD Primary Care Provider [phone] JOAN CARRILLO Attending Unavailable JOAN CARRILLO Attending Unavailable JOAN CARRILLO Attending Unavailable Demarco Collins Referring Unavailable Demarco Collins Attending Unavailable Demarco Collins Admitting Unavailable Allergies Allergy Classification Reported Allergen(s) Allergy Type Date of Onset Reaction(s) Facility (15 sources) No Known Medication Allergies; Translations: [No Known Medication Allergies] Propensity to adverse reactions (disorder) [facility] Repository Medications Current Medications Medication Drug Class(es) Dates Sig (Normalized) Sig (Original) 0.5 ML tirzepatide 10 MG/ML Auto-Injector [Mounjaro] (2 sources) Start: 3 Mounjaro 5 mg/0.5 mL subcutaneous solution Refills(s) 0 Start Date: 11/05/22 Status: Ordered acetaminophen 325 mg oral tablet (1 source) Start: 4 take 3 tablets by mouth every six hours acetaminophen 325 mg Tab 975 mg = 3 tab(s), Oral, q6hr, Refills(s) 0 Start Date: 03/19/24 Status: Ordered amLODIPine 5 mg oral tablet (4 sources) Dihydropyridine Calcium Channel Dse Start: 4 End: 4 take 1 tablet by mouth once daily amLODIPine (Norvasc) 5 MG tablet Indications: Primary hypertension (CMS/HCC) Take 1 tablet (5 mg) by mouth Daily 30 tablet 1 06/25/2024 07/25/2024 Active amoxicillin 875 mg / clavulanate 125 mg oral tablet (1 source) Penicillin-class Antibacterial Start: 3 amoxicillin-clavulanate 875 mg-125 mg Tab Refill(s) 0 Start Date: 11/05/22 Status: Ordered atorvastatin 20 mg oral tablet (12 sources) HMG-CoA Reductase Inhibitor Start: 4 End: 5 take 1 tablet by mouth once daily atorvastatin (Lipitor) 20 MG tablet Indications: Hypertriglyceridemia (CMS/HCC) Take 1 tablet (20 mg) by mouth Daily 90 tablet 1 06/25/2024 09/23/2024 Active Start: 08-14-2023 atorvastatin 2 0 mg Tab Daily, Refills(s) 0 Start Date: 08/14/23 Status: Ordered Blood Glucose Monitoring Sup pl (True Metrix Meter) w/Device kit (4 sources) Start: 06-16-2024 End: 06-16-2024 Blood Glucose Monitoring Sup pl (True Metrix Meter) w/Device kit Indications: Type 2 diabetes mellitus without complication, without long-term current use of insulin (CMS/HCC) 1 each by Other route 1 time for 1 dose 1 kit 06/16/2024 06/16/2024 Active Start: 07-04-2023 End: 06-09-[address] (True Metrix Meter) w/Device kit 1 each by Other route 1 time. 07/04/2023 06/09/2024 Discontinued (Reorder) Start: 07-04-2023 Blood Glucose Monitoring Suppl (True Metrix Meter) w/Device kit 1 each by Other route 1 time. 07/04/2023 Active busPIRone hydrochloride 5 mg oral tablet (13 sources) Start: 03-26-2024 End: 09-23-2024 take 1 tablet by mouth in the morning busPIRone (Buspar) 5 MG tablet Indications: Anxiety and depression (CMS/HCC) Take 1 tablet (5 mg) by mouth in the morning and 1 tablet (5 mg) before bedtime. 180 tablet 1 06/25/2024 09/23/2024 Active Start: 11-01-2022 take 1 mg by mouth twice daily busPIRone 5 mg Tab mg tab(s), Oral, BID, Refills(s) 0 Start Date: 11/01/22 Status: Ordered cephalexin 500 mg oral capsule (2 sources) Cephalosporin Antibacterial Start: 07-02-2024 End: 07-12-2024 take 1 capsule by mouth in the morning, then take 1 capsule by mouth in the evening, then take 1 capsule by mouth at bedtime cephalexin (Keflex) 500 MG capsule Indications: Hidradenitis suppurativa Take 1 capsule (500 mg) by mouth in the morning and 1 capsule (500 mg) in the evening and 1 capsule (500 mg) before bedtime. Do all this for 10 days. 30 capsule 07/02/2024 07/12/2024 Active Start: 11-05-2022 take [address] capsule [address] [facility] every twelve hours Keflex 500 mg Cap 500 mg = 1 cap(s), Oral, q12hr, # 60 caplet(s), Refills(s) 1, [facility]acy: [facility] #[id number], 185, cm, 11/05/22 10:09:00 EST, Height/Length Dosing, 168, kg, 11/05/22 10:09:00 EST, Weight Dosing Start Date: 11/05/22 Status: Ordered dapagliflozin 10 mg oral tablet (10 sources) Sodium-Glucose Cotransporter 2 Inhibitor Start: 06-25-2024 End: 09-23-2024 take 1 tablet by mouth once daily dapagliflozin (Farxiga) 10 MG Indications: Type 2 diabetes mellitus with other skin complication, without long-term current use of insulin (CMS/HCC) Take 1 tablet (10 mg) by mouth Daily 90 tablet 1 06/25/2024 09/23/2024 Active Start: 03-26-2024 End: 06-25-2024 take 1 tablet by mouth once daily dapagliflozin (Farxiga) 5 MG Indications: Type 2 Diabetes Mellitus Take 1 tablet (5 mg) by mouth Daily 90 tablet 1 03/26/2024 06/25/2024 Discontinued (Ineffective) docusate sodium 100 mg oral capsule (1 source) Start: 03-19-2024 End: 03-26-2024 take 1 capsule by mouth twice daily docusate sodium 100 mg Cap 100 mg = 1 cap(s), Oral, BID, X 7 day(s), # 14 cap(s), Refills(s) 0, Pharmacy: [facility] #[id number], 185.4, cm, 03/14/24 17:53:00 EDT, Height/Length Dosing, 182, kg, 03/14/24 17:53:00 EDT, Weight Dosing Start Date: 03/19/24 Stop Date: 03/26/24 Status: Ordered gabapentin 300 mg oral capsule (4 sources) Anti-epileptic Agent Start: 06-25-2024 End: 07-25-2024 take 1 capsule by mouth at bedtime gabapentin (Neurontin) 300 MG capsule Indications: Neuropathy Take 1 capsule (300 mg) by mouth at bedtime 30 capsule 1 06/25/2024 07/25/2024 Active glimepiride 4 mg oral tablet (13 sources) Sulfonylurea Start: 03-26-2024 End: 09-23-2024 take 1 tablet by mouth before mealtime glimepiride (Amaryl) 4 MG tablet Indications: Type 2 diabetes mellitus with other skin complication, without long-term current use of insulin (CMS/HCC) Take 1 tablet (4 mg) by mouth in the morning. Take before meals. 90 tablet 1 06/25/2024 09/23/2024 Active Start: 11-01-2022 take 1 mg by mouth once daily glimepiride 4 mg Tab mg tab(s), Oral, Daily, Refills(s) 0 Start Date: 11/01/22 Status: Ordered losartan potassium 100 mg oral tablet (13 sources) Angiotensin 2 Receptor Des Start: 03-26-2024 End: 03-26-2025 take 1 tablet by mouth once daily losartan (Cozaar) 100 MG tablet Indications: Primary hypertension (CMS/HCC) Take 1 tablet (100 mg) by mouth Daily 90 tablet 1 06/25/2024 09/23/2024 Active Start: 11-01-2022 take 1 mg by mouth once daily losartan 25 mg Tab mg tab(s), Oral, Daily, Refills(s) 0 Start Date: 11/01/22 Status: Ordered metFORMIN hydrochloride 1000 mg oral tablet (13 sources) Biguanide Start: 03-26-2024 End: 09-23-2024 take 1 tablet by mouth in the morning metFORMIN (Glucophage) 1000 MG tablet Indications: Type 2 diabetes mellitus with other skin complication, without long-term current use of insulin (CMS/HCC) Take 1 tablet (1,000 mg) by mouth in the morning and 1 tablet (1,000 mg) in the evening. Take with meals. 180 tablet 1 06/25/2024 09/23/2024 Active Start: 11-01-2022 take 1 mg by mouth [...] chloride 5 mg extended release oral tablet (12 sources) Cholinergic Muscarinic Antagonist Start: 03-26-2024 End: 10-03-2024 take 1 tablet by mouth once daily oxybutynin XL (Ditropan-XL) 5 MG 24 hr tablet Indications: Overactive bladder Take 1 tablet (5 mg) by mouth Daily 90 tablet 1 06/25/2024 10/03/2024 Active Start: 08-14-2023 oxybutynin 5 m g ER Tab Daily, Refills(s) 0 Start Date: 08/14/23 Status: Ordered oxyCODONE hydrochloride 5 mg oral tablet (1 source) Opioid Agonist Start: 03-19-2024 End: 03-22-2024 oxyCODONE 5 mg Tab 5 mg = 1 tab(s), Oral, q6hr, PRN Pain 8-10, X 3 day(s), # 12 tab(s), Refills(s) 0, Pharmacy: [facility] #[id number], 185.4, cm, 03/14/24 17:53:00 EDT, Height/Length Dosing, 182, kg, 03/14/24 17:53:00 EDT, Weight Dosing Start Date: 03/19/24 Stop Date: 03/22/24 Status: Ordered pantoprazole 20 mg delayed release oral tablet (7 sources) Proton Pump Inhibitor Start: 04-03-2024 End: 09-23-2024 take 1 tablet by mouth in the morning pantoprazole (ProtoNix) 20 MG EC tablet Indications: Gastroesophageal reflux disease without esophagitis Take 1 tablet (20 mg) by mouth in the morning and 1 tablet (20 mg) before bedtime. 180 tablet 1 06/25/2024 09/23/2024 Active sulfamethoxazole 800 mg / trimethoprim 160 mg oral tablet (8 sources) Dihydrofolate Reductase Inhibitor Antibacterial, Sulfonamide Antimicrobial Start: 01-02-2024 take 1 tablet by mouth every twelve hours sulfamethoxazole-tri methoprim (Bactrim DS) 800-160 MG per tablet Take 1 tablet by mouth every 12 (twelve) hours 01/02/2024 Active 24 hr venlafaxine 75 mg extended release oral capsule (13 sources) Serotonin and Norepinephrine Reuptake Inhibitor Start: 03-26-2024 End: 09-23-2024 take 1 capsule by mouth once daily venlafaxine XR (Effexor XR) 75 MG 24 hr capsule Indications: Anxiety and depression (CMS/HCC) Take 1 capsule (75 mg) by mouth Daily 90 capsule 1 06/25/2024 09/23/2024 Active Start: 11-01-2022 take 1 mg by mouth [...] Classification Problem Date Documented Da te Episodic/Chronic Anxiety disorders (20 sources) Anxiety; Translations: [Mixed anxiety and depressive disorder] Onset: 4 Resolved: 4 11-05-2022 Chronic Diabetes mellitus with complications (11 sources) Type 2 diabetes mellitus with other skin complications; Translations: [Diabetes with other specified manifestations, type II or unspecified type, not stated as uncontrolled] Onset: 3 Resolved: 4 08-27-2023 Chronic Diabetes mellitus without complication (14 sources) Type 2 diabetes mellitus; Translations: [Type 2 diabetes mellitus without complications] Onset: 3 11-01-2022 Chronic Disorders of lipid metabolism (10 sources) Hypertriglyceridemia; Translations: [Pure hyperglyceridemia] Onset: 4 09-24-2023 Chronic Esophageal disorders (6 sources) Gastroesophageal reflux disease without esophagitis; Translations: [Gastro-esophageal reflux disease without esophagitis] Onset: 4 06-25-2024 Chronic Essential hypertension (10 sources) Hypertensive disorder; Translations: [Essential (primary) hypertension] Onset: 4 09-24-2023 Chronic Inflammatory conditions of male genital organs (7 sources) Inflammation of scrotum; Translations: [Inflammatory disorders of scrotum] Onset: 3 Episodic Intestinal obstruction without hernia (1 source) Intestinal obstruction; Translations: [Unspecified intestinal obstruction, unspecified as to partial versus complete obstruction] Onset: 4 Episodic Osteoarthritis (8 sources) Arthritis; Translations: [Unspecified osteoarthritis, unspecified site] Onset: 4 10-10-2023 Chronic Other diseases of bladder and urethra (10 sources) Overactive bladder; Translations: [Overactive bladder] Onset: 4 09-24-2023 Chronic Other gastrointestinal disorders (1 source) Swollen abdomen; Translations: [Other intra-abdominal and pelvic swelling, mass and lump] Onset: 3 Episodic Other gastrointestinal disorders (3 sources) Groin mass 11-05-2022 Episodic Other gastrointestinal disorders (1 source) Other intra-abdominal and pelvic swelling, mass and lump; Translations: [OTH INTRA-ABD PELV SWELL MASS LUMP] Onset: 3 Episodic Other lower respiratory disease (4 sources) Solitary pulmonary nodule; Translations: [SOLITARY PULMONARY NODULE] Onset: 3 Episodic Other nervous system disorders (6 sources) Neuropathy; Translations: [Polyneuropathy, unspecified] Onset: 4 06-25-2024 Chronic Other nutritional; endocrine; and metabolic disorders (13 sources) Morbid obesity; Translations: [Morbid (severe) obesity due to excess calories] Onset: 4 11-01-2022 Chronic Other nutritional; endocrine; and metabolic disorders (1 source) Morbid (severe) obesity due to excess calories; Translations: [MORBID SEVERE OBES D/T EXCESS BRIE] Onset: 2 Chronic Other nutritional; endocrine; and metabolic disorders (10 sources) Body mass index 40+ - severely obese; Translations: [Body mass index (BMI) 50.0-59.9, adult] Onset: 4 10-10-2023 Chronic Other skin disorders (4 sources) Hidradenitis suppurativa; Translations: [HIDRADENITIS SUPPURATIVA] Onset: 3 Episodic Substance-related disorders (3 sources) Smoker 11-01-2022 Chronic Past or Other Problems Problem Classification Problem Date Documented Date Episodic/Chronic Abdominal hernia (20 sources) Hernia of anterior abdominal wall; Translations: [Unspecified abdominal hernia without obstruction or gangrene] Onset: 11-05-2022 Resolved: 10-10-2023 Episodic Mood disorders (8 sources) Mood disorders Onset: 03-26-2024 03-26-2024 Other hematologic conditions (8 sources) Increased serum protein level; Translations: [Abnormality of plasma protein, unspecified] Onset: 09-24-2023 09-24-2023 Episodic Other lower respiratory disease (9 sources) Nodule of lung; Translations: [Solitary pulmonary nodule] Onset: 09-24-2023 09-24-2023 Episodic Other skin disorders (13 sources) Hidradenitis suppurativa; Translations: [Hidradenitis suppurativa] Onset: 09-24-2023 09-24-2023 Episodic Residual codes; unclassified (8 sources) History of hernia repair; Translations: [Other specified postprocedural states] Onset: 03-26-2024 03-26-2024 Episodic Screening and history of mental health and substance abuse codes (8 sources) Ex-tobacco user; Translations: [Personal history of nicotine dependence] Onset: 10-10-2023 10-10-2023 Episodic Skin and subcutaneous tissue infections (4 sources) Cutaneous abscess of right lower limb; Translations: [CUTANEOUS ABSCESS RIGHT LOWER LIMB] Onset: 06-18-2022 Episodic Results Test Name Value Interpretation Reference Range Facility Main OR Intraoperative Recor don 06-30-2024 Main OR Intraoperative Record Main OR Intraoperative Record IntraOp Document Type FT Summary Primary Physician: Demarco Collins MD Finalized Date/Time: 06/30/24 09:52:21 Pt. Name: CHRISTIAN SHELBY/Sex: 1975 Male Med Rec #: [id number] Physician: Demarco Collins MD Financial #: [id number] Pt. Type: O Room/Bed: / Admit/Disch: 06/29/24 06:40:45 - 06/29/24 23:59:59 Institution: Case Times FT Entry 1 Patient Times In Room 06/29/24 07:39:00 Out Room 06/29/24 07:50:00 Procedure Times Start 06/29/24 07:43:00 Stop 06/29/24 07:46:00 Anesthesia Times Start 06/29/24 07:39:00 Stop 06/29/24 07:50:00 Last Modified By: Isatu Hall RN 06/29/24 07:48:37 General Comments: 06/30/24 Chart opened to review and send charges [facility]FA Case Attendance FT Entry 1 Entry 2 Entry 3 Case Attendee Nabil BOBBY, Rajat Walker, Rosas Collins MD, Demarco Martins Role Performed Anesthesiologist Scrub - Primary Surgeon - Primary Bank Compliance Officer Time In 06/29/24 07:39:00 06/29/24 07:39:00 06/29/24 07:39:00 Time Out 06/29/24 07:50:00 06/29/24 07:50:00 06/29/24 07:50:00 Procedure EGD(.) EGD(.) EGD(.) Comments Dr. Layne supervising Last Modified By: Isabel WILHELM, Isatu Hall RN, Isatu Mcqueen RN 06/29/24 07:50:24 06/29/24 07:50:24 06/29/24 07:50:24 Entry 4 Case Attendee Isatu Hall RN Role Performed Wall Taper - Primary Time In 06/29/24 07:39:00 Time Out 06/29/24 07:50:00 Procedure EGD(.) Comments Last Modified By: Isatu Hall RN 06/29/24 07:50:24 Perioperative Protocols FT Pre-Care Text: Implements protective measures prior to operative or invasive procedure, confirms identity before the operative or invasive procedure, verifies operative procedure, surgical site, and laterality Entry 1 Procedure(s) EGD(.) Patient Identity Birthday, ID Band Verified (select at Check, Patient least 2): Participation Consents / H and P Anesthesia Consent, Operative Site N/A Verified H&P, Surgery/Procedure Marking Verified Consent Surgical Site No Laterality Verified n/a Verified Procedure Verified Yes Correct Patient Yes Position Verified Availability Equipment, Medication Prep Dry n/a Verified (If Applicable) PreOp Antibiotic No Time Out Rajat Barron Given Participants Aaron Montgomery Micala E, Mourany MD, Demarco Martins, Isatu Hall RN Time Out Complete 06/29/24 07:42:00 Outcomes Met? Yes Last Modified By: Isatu Hall RN 06/29/24 07:46:19 Post-Care Text: The patient is free from signs and symptoms of injury caused by extraneous objects Allergy Information FT Pre-Care Text: Verifies allergies Entry 1 Allergies Reviewed? Yes Allergies Reviewed Self/Patient With Outcomes Met? Yes Last Modified By: Isatu Hall RN 06/29/24 07:47:36 Post-Care Text: The patient received appropriate medication(s) safely administered during the perioperative period Surgical Procedures FT Entry 1 Procedure Description Procedure EGD Modifiers . Surgeon Description EGD Primary Procedure Yes Primary Surgeon Karina MARTINEZ, Demarco Martins Start 06/29/24 07:43:00 Stop 06/29/24 07:46:00 Anesthesia Type General Surgical Service General Wound Class 2 - Clean-Contaminated Last Modified By: Isatu Hall RN 06/29/24 07:47:45 General Case Data FT Pre-Care Text: Classifies surgical wound, implements aseptic technique, initiates traffic control Entry 1 Case Information OR ENDO 2 FT Case Level Level 2 Wound Class 2 - Clean-Contaminated Specialty General ASA Class 4 Preop Diagnosis GASTRITIS Postop Same As Preop No Postop Diagnosis healed gastritis, Outcomes Met? Yes gastric bezoar Last Modified By: Isatu Hall RN 06/29/24 07:49:25 Post-Care Text: The patient is free from signs and symptoms of infection Skin Assessment (Pre Procedure) FT Pre-Care Text: Implements protective measures to prevent skin/ tissue injury due to thermal or mechanical sources Evaluates for signs and symptoms of physical injury to skin and tissue Entry 1 Skin Integrity Intact, [place], Warm, & Skin Abnormality No Dry Outcomes Met? Yes Last Modified By: Isatu Hall RN 06/29/24 07:49:33 Post-Care Text: The patient is free from signs and symptoms of injury caused by extraneous objects Patient Positioning FT Pre-Care Text: Identifies physical alterations that require additional precautions for procedure-specific positioning, verifies presence of prosthetics or corrective devices, positions the patient, evaluates the patient for signs and symptoms of injury as a result of positioning Entry 1 Procedure EGD(.) Body Position Lateral, right side up Feet Uncrossed? Yes Left Arm Position Resting at Side Right Arm Position Resting at Side Left Leg Position Extended Right Leg Position Extended Positioning Device Safety Strap, Pillow Under Head Large Press Points Checked Yes By Isatu Hall RN Outcomes Met? Yes Last Modified By: Isatu Hall RN (more content not included)... Normal [facility] Discharge Instructionson Discharge Instructions Discharge Instructions CHRISTIAN SHELBY :1975 Visit Date:06/29/2024 Inpatient Discharge Instructions Your Care Team Admitting Physician - Demarco Collins MD Referring Physician - Demarco Collins MD Reason for Your Visit GASTRISTIS This Is Your Medications List acetaminophen (acetaminophen 325 mg Tab) atorvastatin (atorvastatin 20 mg Tab) busPIRone (busPIRone 5 mg Tab) dapagliflozin (Farxiga 5 mg oral tablet) glimepiride (glimepiride 4 mg Tab) losartan (losartan 100 mg Tab) metformin (metformin 1000 mg oral tablet, extended release) oxybutynin (oxybutynin 5 mg ER Tab) venlafaxine (venlafaxine 75 mg Cap-ER) Procedure History Colonoscopy (04/03/2024), Esophagogastroduodenoscopy (04/03/2024), Drainage of scrotal abscess (03/21/2016), Tonsillectomy. Discharge Vitals Temperature (Temporal Artery) 36.7 ?C Heart Rate (Monitored) 84 Respiratory Rate 26 Blood Pressure 143/83 Height 185 cm Weight 182 kg BMI 53.18 What to do next Instructions From Your Doctor No qualifying data available. New Follow Up Appointments after Discharge Follow Up with Yari MARTINEZ, BROCK Seo, MED When: Comments: Office will call Date and Time of Follow-up Appt. Where: [address] [place], [place] [address], [address] [place] [phone] Medications What How Much When Why Instructions Next Dose Unchanged acetaminophen (acetaminophen 325 mg Tab) 3 Tablets By Mouth Every 6 hours Ventral hernia Unchanged atorvastatin (atorvastatin 20 mg Tab) Every day Unchanged busPIRone (busPIRone 5 mg Tab) By Mouth 2 times a day Unchanged dapagliflozin (Farxiga 5 mg oral tablet) 1 Tablets By Mouth Every day Unchanged glimepiride (glimepiride 4 mg Tab) By Mouth Every day Unchanged losartan (losartan 100 mg Tab) 1 Tablets By Mouth Every day Unchanged metformin (metformin 1000 mg oral tablet, extended release) By Mouth Every day Unchanged oxybutynin (oxybutynin 5 mg ER Tab) Every day Unchanged venlafaxine (venlafaxine 75 mg Cap-ER) By Mouth Every day Test Results No qualifying data available. Allergies No Known Medication Allergies Problems Ongoing - Any problem that you are currently receiving treatment for. Abdominal hernia Anxiety Encounter for screening colonoscopy Gastritis Left groin mass Melena Morbid obesity Recurrent scrotal infection Scrotal abscess Smoker Type II diabetes mellitus Education Materials Gastric Bezoar A gastric bezoar is a collection of materials in your stomach that your body cannot fully digest. Bezoars are classified by what they are made up of. -Phytobezoars are the most common type of bezoar. They are composed of fruit and vegetable matter. -Trichobezoars are composed of hair. -Pharmacobezoars are composed of ingested medications. -Other bezoars may be composed of various substances, such as paper, Styrofoam, and vinyl. Gastric bezoars are usually the result of taking in material that the stomach cannot digest. For example, patients with bezoars may have a stomach that is slow to empty or cannot grind down the material. Once they form, gastric bezoars can grow with the continued intake of substances that cannot be digested. Risk Factors Risk factors of developing a gastric bezoar include dehydration, impaired gastric emptying, obstructed gastric outlet, and use of certain medications (such as opiates and coated or encapsulated medications). Symptoms The most common symptoms of a gastric bezoar include nausea, vomiting, abdominal pain, loss of appetite, feeling of fullness, and weight loss. However, most patients who develop a gastric bezoar do not have any symptoms initially, because bezoars often do not completely block the digestive tract. Diagnosis A gastric bezoar can be diagnosed during an upper gastrointestinal endoscopy procedure, like an EGD. It appears as a dark brown, green, or black ball of material in the stomach that does not have a clear shape or form. Treatment Treatment of a bezoar depends on factors such as its size and the patient's symptoms. Your doctor may prescribe treatments including medication or Coca-Cola to help break down or dissolve the bezoar. Prevention To help prevent another bezoar from forming, patients are encouraged to increase their water intake, change their diet by avoiding foods that are high in fiber and fat, and carefully chew their food. When appropriate, patients may also be instructed to avoid specific medications and seek psychiatric evaluation. Patients may also be tested for impaired gastrointestinal motility. Common Emergency Awareness Tips IS IT A STROKE? Act FAST and Check for these signs: FACE Does the face look uneven? ARM Does one arm drift down? SPEECH Does their speech sound strange? TIME Call at any sign of stroke Heart Attack Signs Chest discomfort: Most heart attacks involve discomfort in the center of th (more content not included)... Normal [facility] Comment on above: Result Comment: Elec tronically Signed By: Reji WILHELM, Eneida\.br\Date and Time Signed: 06/29/24 08:08 EDT Main OR PACU II Recordon Main OR PACU II Record Main OR PACU II Record PACU Phase II Document Type FT Summary Primary Physician: Demarco Collins MD Finalized Date/Time: 06/29/24 08:11:25 Pt. Name: CHRISTIAN SHELBY/Sex: 1975 Male Med Rec #: [id number] Physician: Demarco Collins MD Financial #: [id number] Pt. Type: O Room/Bed: / Admit/Disch: 06/29/24 06:40:45 - Institution: Case Times PACU II FT Pre-Care Text: Identifies barriers to communication and implements measures to provide psychological support and determines knowledge level Develops individualized plan of care, and ensures continuity of care Maintains patient's dignity and privacy, and maintains patient confidentiality Identifies and reports philosophical, cultural, and spiritual beliefs and values Identifies individual values and wishes concerning care administers prescribed antibiotic therapy and immunizing agents as ordered, Evaluates postoperative tissue perfusion Implements thermoregulation measures, and monitors body temperature Evaluates postoperative respiratory status Evaluates postoperative cardiac status Evaluates postoperative neurological status Assesses pain control, collaborated in initiating patient-controlled analgesia and implements alternative methods of pain control Verifies allergies, administers prescribed medications and solutions, evaluates response to medications Entry 1 In PACU II 06/29/24 07:50:00 Discharge from PACU 06/29/24 08:10:00 II Outcomes Met? Yes Last Modified By: Eneida Mendoza RN 06/29/24 08:11:21 Post-Care Text: The patient demonstrates knowledge of [...] affecting his or her perioperative plan of care. The patient is free from signs and [...] from baseline levels established preoperatively The patient's neurological status is consistent with or improved from baseline levels established preoperatively The patient demonstrates and/or reports adequate pain control throughout the perioperative period The patient received appropriate medication(s), safely administered during the perioperative period Finalized By: Eneida Mendoza RN Document Signatures Signed By: Eneida Mendoza RN 06/29/24 08:11 [facility] Main OR Preoperative Recordo n 06-29-2024 Main OR Preoperative Record Main OR Preoperative Record Holding Area Document Type FT Summary Primary Physician: Demarco Collins MD Finalized Date/Time: 06/29/24 06:55:57 Pt. Name: CHRISTIAN SHELBY/Sex: 1975 Male Med Rec #: [id number] Physician: Demarco Collins MD Financial #: [id number] Pt. Type: O Room/Bed: / Admit/Disch: 06/29/24 06:40:45 - Institution: Case Times Holding FT Pre-Care Text: Verifies consent for planned procedure, identifies individual values and wishes concerning care, includes family members in perioperative teaching Secures patient's records' belongings, and valuables, maintains patient's dignity and privacy, and maintains patient confidentiality Entry 1 In Holding 06/29/24 06:50:00 Outcomes Met? Yes Last Modified By: Jo Ann Herbert RN 06/29/24 06:55:19 Post-Care Text: The patient participates in decisions affecting his or her perioperative plan of care The patient's right to privacy is maintained Surgery Checklist FT Entry 1 Patient Birthday, ID Band Procedure History and Physical, Identification: Check, Patient Verification: Surgical Consent, With Participation Patient NPO after Midnight: Yes Date/Time: 06/29/24 00:00:00 Limitations: n/a Complaints of Pain: No Pain Comment: denies Operative Site n/a Marking: Marked By: n/a Availability Equipment Verified: Does Patient Smoke No Patient states Yes Comment - Adult son- Rocco postop adult Supervision supervision available Case Cancelled in No Holding Area see comments below for reason Last Modified By: Jo Ann Herbert RN 06/29/24 06:55:55 Finalized By: Jo Ann Herbert RN Document Signatures Signed By: Jo Ann Herbert RN 06/29/24 06:55 Normal [facility] Operative Reporton Operative Report Operative Report Patient: CHRISTIAN SHELBY Age: 48 years Sex: Male : 1975 Associated Diagnoses: None Author: Demarco Collins MD Pre-Procedure Procedure Date 06/29/2024 10:26:00 . Procedure Type: Esophagogastroduodenoscopy. Procedure provider Performed by Demarco Collins MD. Pre-procedure diagnosis: Surveillance: fu gastritis. ASA Classification: Class IV. . Procedure The procedure was performed in the hospital. See anesthesia record for sedation given during procedure. The patient was positioned starting in the left lateral decubitus position. Endoscope type used was an adult-size, introduced orally, advanced to the pre-pyloric region of the stomach, photographic documentation was obtained. Views were fair, impaired by a bezoar. The patient tolerated the procedure well. Findings Examination of the esophagus revealed a normal esophagus. The squamocolumnar junction appeared regular. Examination of the stomach revealed a normal stomach. Post-Procedure Complications: none. Estimated blood loss: none. Normal [facility] Comment on above: Result Comment: Elec tronically Signed By: Demarco Collins MD\.br\Date and Time Signed: 06/29/24 10:27 EDT Operative Report Operative Report Patient: CHRISTIAN SHELBY Age: 48 years Sex: Male : 1975 Associated Diagnoses: None Author: Demarco Collins MD Chief Complaint Gastritis here for surveillance EGD Review of Systems Constitutional: Negative. Eye: Negative. Ear/Nose/Mouth/Throat: Negative. Respiratory: Negative. Cardiovascular: Negative. Health Status Allergies: Allergies reviewed. Histories Past Medical History: No active or resolved past medical history items have been selected or recorded. Family History: Entire family history is negative. Procedure history: EGD - esophagogastroduodenoscopy ([id number]) on 06/29/2024 at 48 Years. Colonoscopy ([id number]) on 04/03/2024 at 48 Years. Comments: 04/03/2024 15:52 EDT - Rupesh WILHELM, Flores normal Esophagogastroduodenoscopy ([id number]) on 04/03/2024 at 48 Years. Comments: 04/03/2024 15:53 EDT - Rupesh WILHELM, Flores duodenitis, antral biiopsy Drainage of scrotal abscess ([id number]) on 03/21/2016 at 40 Years. Tonsillectomy ([id number]). Social History Social & Psychosocial Habits Alcohol [...] Former smoker, quit more . Physical Examination Vital Signs (last 24 hrs) Last Charted Temp Temporal 36.7 DegC (JUN 29 07:50) Heart Rate Monitored 83 bpm (JUN 29 08:09) Resp Rate 25 br/min (JUN 29 08:09) SBP 136 mmHg (JUN 29 08:09) DBP 71 mmHg (JUN 29 08:09) Weight 182 kg (JUN 29 06:56) BMI 53.18 (JUN 29 06:56) abdomen s/nt/nd Impression and Plan Condition: Stable. Course: Progressing as expected. Normal [facility] Comment on above: Result Comment: Elec tronically Signed By: Karina MARTINEZ, Demarco Herrera\Date and Time Signed: 06/29/24 10:25 EDT ALL CBC WITH AUTO DIFFon BASOPHILS ABSOLUTE AUTO 0.1 [facility] Basophils/100 WBC (Bld) 0.5 % 0.2 - 2.0 % [facility] Eosinophils/100 WBC (Bld) 2.8 % 0.9 - 7.0 % [facility] Erythrocyte distribution width (RBC) [Ratio] 14.4 % 11.0 - 15.0 % [facility] Hematocrit (Bld) [Volume fraction] 42.4 % 42.0 - 54.0 % [facility] Hemoglobin (Bld) [Mass/Vol] 13.1 g/dL Low 14.0 - 18.0 g/dL [facility] IMMATURE GRANULOCYTES ABS AUTO 0.07 High [facility] Immature granulocytes/100 WBC (Bld) 0.6 % High 0.0 - 0.5 % [facility] Interpretation and review of laboratory results Abnormal [facility] LYMPHOCYTES ABSOLUTE AUTO 3.2 [facility] Lymphocytes/100 WBC (Bld) 26.0 % 20.5 - 60.0 % [facility] MCH (RBC) [Entitic mass] 26.3 pg 25.9 - 34.0 pg [facility] MCHC (RBC) [Mass/Vol] 30.9 g/dL 29.9 - 35.2 g/dL [facility] MCV (RBC) [Entitic vol] 85.1 fL 80.0 - 94.0 fL [facility] MONOCYTES ABSOLUTE AUTO 0.9 High [facility] Monocytes/100 WBC (Bld) 7.6 % 1.7 - 12.0 % [facility] NEUTROPHILS ABSOLUTE AUTO 7.6 High [facility] Neutrophils/100 WBC (Bld) 62.5 % 43.0 - 75.0 % [facility] Platelet mean volume (Bld) [Entitic vol] 8.7 fL Low 9.5 - 13.5 fL [facility] TBH EO # 0.3 [facility] [address] [facility] RBC 4.98 [facility] WBC 12.2 High [facility] Reminderson 04-16-2024 Reminders Reminders From: Joan Cutler MA To: N - Clinical; Sent: 04/16/2024 15:36:46 EDT Show up: 03/04/2034 15:36:00 EDT Subject: Colonoscopy recall 10 years Reminder/Recall Last colonoscopy: 04/03/2024 Repeat: 10 years Reason: Screening colonoscopy Normal [facility] Operative Reporton Operative Report Operative Report [...] Plan EGD: Course: Progressing as expected. Normal [facility] Comment on above: Result Comment: Elec [...] history and physical Documented on chart. Colonoscopy ([id number]) on 04/03/2024 at 48 Years. Comments: 04/03/2024 15:52 EDT - Rupesh WILHELM, Flores normal Esophagogastroduodenoscopy ([id number]) on 04/03/2024 at 48 Years. Comments: 04/03/2024 15:53 DARRION Goddard RN, Flores duodenitis, antral biiopsy Drainage of scrotal abscess ([id number]) on 03/21/2016 at 40 Years. Tonsillectomy ([id number]).. Past Medical History No active or resolved past medical history items have been selected or recorded.. Family History Entire family history is negative.. Procedure History Colonoscopy ([id number]) on 04/03/2024 at 48 Years. Comments: 04/03/2024 15:52 DARRION Goddard RN, Flores normal Esophagogastroduodenoscopy ([id number]) on 04/03/2024 at 48 Years. Comments: 04/03/2024 15:53 DARRION Goddard RN, Flores duodenitis, antral biiopsy Drainage of scrotal abscess ([id number]) on 03/21/2016 at 40 Years. Tonsillectomy ([id number]).. Colorectal neoplasm risk assessment Average risk. Informed Consent After discussing the rationale, risks and benefits, and alternatives to this procedure, the patient provided signed consent for the procedure. Pre-procedure diagnosis: No prior colonoscopy. Medications (Selected) Prescriptions Prescribed Carafate 1 gram Tab: 1 gm = 1 tab(s), Oral, QID, X 60 day(s), # 240 tab(s), Refills(s) 0, [id number], 185, cm, 04/03/24 12:38:00 EDT, Height/Length Dosing, 182, kg, 04/03/24 12:38:00 EDT, Weight Dosing Pantoprazole [address] Tab: 20 mg = 1 tab(s), Oral, BID, X 60 day(s), # 120 tab(s), Refills(s) 0, [id number], 185, cm, 04/03/24 12:38:00 EDT, Height/Length [...] Return to activities:: After 24 hours. Normal [facility] Comment on above: Result Comment: Elec tronically Signed By: Karina MARTINEZ, Demarco Martins\.br\Date and Time Signed: 04/10/24 07:47 EDT Surgical Pathology Reporton 04-08-2024 Surgical Pathology Report [facility] [address] [place] [address]- Surgical Pathology Report Collected Date/Time: 04/03/2024 15:25 [...] is entirely submitted in one cassette. (DC) DC:[facility] Microscopic Description A&B: Microscopic examination performed unless gross only specified. The use of one or more reagents in the above tests is regulated as an analyte specific reagent (ASR). The test or tests are ordered following initial H&E microscopic examination. The performance characteristics were determined by the Laboratory of [facility]. They have not been cleared or approved by the US Food and Drug Administration. The FDA has determined that such clearance or approval is not necessary. These tests are used for clinical purposes. They should not be regarded as investigational or for research. Appropriate positive and negative controls are performed and are acceptable. Normal [facility] Comment on above: Performed By: #### 4 [id number] #### [facility] Laboratory [address] [place] [address] Performed By: #### 4 [id number] ####[facility] [id number] [place] [address] Main OR Intraoperative Recor don 04-06-2024 Main OR Intraoperative Record Main OR Intraoperative Record IntraOp Document Type FT Summary Primary Physician: Demarco Collins MD Finalized Date/Time: 04/06/24 08:26:26 Pt. Name: CHRISTIAN SHELBY/Sex: 1975 Male Med Rec #: [id number] Physician: Demarco Collins MD Financial #: [id number] Pt. Type: O Room/Bed: / Admit/Disch: 04/03/24 13:54:24 - 04/03/24 23:59:59 Institution: Case Times FT Entry 1 Patient Times In Room 04/03/24 15:12:00 Out Room 04/03/24 15:44:00 Procedure Times Start 04/03/24 15:19:00 Stop 04/03/24 15:40:00 Anesthesia Times Start 04/03/24 15:12:00 Stop 04/03/24 15:44:00 Time at [place] 04/03/24 15:34:00 Last Modified By: Isatu Hall RN 04/03/24 15:44:12 General Comments: 1523-EGD completed/AW RN 1527-Colonoscopy started/AW RN 04/06/24 Chart opened to review and send charges LRoth CSFA Case Attendance FT Entry 1 Entry 2 Entry 3 Case Attendee Cruzito BOBBY, Demarco Suárez, Rosas Anaya Role Performed Anesthesiologist Staff - Other Scrub - Primary Bank Compliance Officer Time In 04/03/24 15:12:00 04/03/24 15:12:00 04/03/24 [...] RN, Isatu Role Performed Surgeon - Primary Wall Taper - Primary Time In 04/03/24 15:12:00 04/03/24 [...] (If Applicable) PreOp Antibiotic No Time Out Demarco Hutton, Given Participants Nilda Suárez Sparks, Micala E, Karina MARTINEZ, Isabel Payton RN, Isatu Time Out Complete 04/03/24 15:15:00 Outcomes Met? [...] and tissue Entry 1 Skin Integrity Intact, [place], Warm, & Skin Abnormality No Dry Outcomes [...] as a (more content not included)... Normal [facility] Discharge Instructionson Discharge Instructions Discharge Instructions [...] Follow-Up Appointments Saturday 3:00 PM EDT Where: Trauma Clinic New Follow Up Appointments after Discharge Follow Up with Karina MARTINEZ, Demarco Martins, HERIBERTO When: Comments: will call with biopsy results Where: Medications What How Much When Why Instructions Next Dose New pantoprazole (Pantoprazole [address] Tab) 1 Tablets By Mouth 2 times a day Melena Encounter for screening colonoscopy Duration: 60 Days Pickup at [id number] New sucralfate (Carafate 1 gram Tab) 1 Tablets By Mouth 4 times a day Melena Encounter for screening colonoscopy Duration: 60 Days Pickup at [id number] Unchanged acetaminophen (acetaminophen 325 mg Tab) 3 [...] Cap-ER) By Mouth Every day Pharmacy Information [id number]: [address], [place] [phone] Test Results No qualifying data available. Allergies [...] liquid (barium) (more content not included)... Normal [facility] Comment on above: Result Comment: Elec tronically Signed By: Rupesh WILHELM, Flores\.jeniffer\Date and Time Signed: 04/03/24 15:59 EDT Inpatient Patient Summaryon 04-03-2024 Inpatient Patient Summary Inpatient Patient Summary [place] [address] [facility] Clinical Discharge Instructions PERSON INFORMATION Name: CHRISTIAN SHELBY PHYSICIANS Admitting Physician: Demarco Collins MD Attending Physician: Demarco Collins MD PCP: JOAN CARRILLO CNP Discharge Diagnosis: Comment: PATIENT EDUCATION INFORMATION Instructions: Upper Endoscopy, Adult, Care After; Colonoscopy, Adult, Care After Medication Leaflets: Follow up: Type Location Start Finish State Trauma Subsequent Follow Up (FT) FT.Trauma Clinic 04/03/2024 3:00 PM 04/03/2024 3:15 PM Confirmed MEDICATION LIST New Medications [id number], [address], [place] [phone], [phone] pantoprazole (Pantoprazole [address] Tab) 1 [...] mg Cap-ER) By Mouth every day. Comment: Nahomy [facility] Main OR PACU I Recordon 03-10 Main OR PACU I Record Main OR PACU I Record PACU Phase I Document Type FT Summary Primary Physician: Demarco Collins MD Finalized Date/Time: 04/03/24 16:54:21 Pt. Name: ELDON SHELBYJUDE Mattson/Sex: 1975 Male Med Rec #: [id number] Physician: Demarco Collins MD Financial #: [id number] Pt. Type: O Room/Bed: / Admit/Disch: 04/03/24 [...] 04/03/24 16:35 Meenakshi Gerber RN 04/03/24 16:54 Normal [facility] Main OR Preoperative Recordo n 04-03-2024 Main OR Preoperative Record Main OR Preoperative Record Holding Area Document Type FT Summary Primary Physician: Demarco Collins MD Finalized Date/Time: 04/03/24 14:32:23 Pt. Name: CHRISTIAN SHELBY/Sex: 1975 Male Med Rec #: [id number] Physician: Demarco Collins MD Financial #: [id number] Pt. Type: O Room/Bed: / Admit/Disch: 04/03/24 [...] By: Cynthia Allen RN 04/03/24 14:32 Normal [facility] Outpatient Surgery Discharge Instructionon 04-03-2024 Outpatient Surgery Discharge Instruction Outpatient Surgery Discharge Instruction [place] [address] Patient Discharge Instructions PERSON INFORMATION Name: CHRISTIAN SHELBY Date of : 1975 Current Date: 04/03/2024 15:54:11 PHYSICIANS Admitting Physician: Karina MARTINEZ, Demarco Martins Discharge Diagnosis: HERON CHRISTIAN Donohue has been given the following list of follow-up instructions, prescriptions, and patient education materials: IF UNABLE TO CONTACT YOUR PHYSICIAN AND YOU FEEL IT IS AN EMERGENCY, GO TO THE NEAREST EMERGENCY ROOM OR CALL 911 I, CHRISTIAN SHELBY, have received the attached [...] Information: You may receive a survey from [address] asking you to rate your care experience. Your feedback is important and will help us understand what we do well and how we can improve the quality of care we provide to you, your loved ones and our community. It?s an honor to serve you. Thank you for choosing [facility] HERE ARE THE MEDICATION CHANGES THAT OCCURRED DURING YOUR HOSPITAL STAY New Medications [id number], [address], [place] [phone], [phone] pantoprazole (Pantoprazole [address] Tab) 1 [...] activities are safe for you. ? Take [id number] and prescription medicines only as told by [...] care pro (more content not included)... Normal [facility] Trauma Office/Clinic Noteon 03-26-2024 Trauma Office/Clinic [...] 03/16/2024: +flatus, +nausea but no vomiting. on RN EMERGENCY ROOM for pain 03/17/2024: tolerating diet, +BM 03/18/2024: [...] to remain in place until next week. HGULAM drain with 10 cc blood-tinged serosanguineous output, [...] Use:. Cigar (more content not included)... Normal [facility] Comment on above: Result Comment: Elec tronically Signed By: Leandra Wallace PA-C\.br\Date and Time Signed: 03/25/24 10:23 EDT\.br\Electronically Co-Signed By: Amparo MARTINEZ, Alesha Wray\.br\Date and Time Co-Signed: 03/26/24 14:28 EDT BMPon 03-19-2024 Anion gap [Moles/Vol] 8 mmol/L Normal 6-16 [facility] Comment on above: Performed By: #### 2 [id number] #### [facility] Laboratory [address] [place] [address] Calcium [Mass/Vol] 7.7 mg/dL Low 8.9-11.1 [facility] Comment on above: Performed By: #### 2 [id number] #### [facility] [address] [place] [address] Chloride [Moles/Vol] 105 mmol/L Normal 101-111 [facility] Comment on above: Performed By: #### 2 [id number] #### [facility] [address] [place] [address] CO2 [Moles/Vol] 28 mmol/L Normal 21-31 [facility] Comment on above: Performed By: #### 2 [id number] #### [facility] [address] [place] [address] Creatinine [Mass/Vol] 0.5 mg/dL Normal 0.5-1.3 [facility] Comment on above: Performed By: #### 2 [id number] #### [facility] [address] [place] [address] Glucose [Mass/Vol] 197 mg/dL Normal 55-199 [facility] Comment on above: Performed By: #### 2 [id number] #### [facility] [address] [place] [address] Potassium [Moles/Vol] 3.3 mmol/L Low 3.5-5.3 [facility] Comment on above: Performed By: #### 2 [id number] #### [facility] [address] [place] [address] Sodium [Moles/Vol] 138 mmol/L Normal 135-145 [facility] Comment on above: Performed By: #### 2 [id number] #### [facility] [address] [place] [address] Urea nitrogen [Mass/Vol] 9 mg/dL Normal 5-21 [facility] Comment on above: Performed By: #### 2 [id number] #### [facility] [address] [place] [address] Urea nitrogen/Creatinine [Mass ratio] 18 No Units Normal 10-20 [facility] Comment on above: Performed By: #### 2 [id number] #### [facility] [address] [place] [address] CBC w/ Auto Diffon 4 Basophils/100 WBC (Bld) 0.4 % Normal 0.0-2.0 [facility] Comment on above: Performed By: #### 2 [id number] #### [facility] [address] [place] [address] Basophils/Leukocytes Auto (Bld) [Pure # fraction] 0.0 E9/L Normal 0.0-0.2 [facility] Comment on above: Performed By: #### 2 [id number] #### [facility] [address] [place] [address] Eosinophils (Bld) [#/Vol] 0.1 E9/L Normal 0.0-0.5 [facility] Comment on above: Performed By: #### 2 [id number] #### [facility] [address] [place] [address] Eosinophils/100 WBC (Bld) 1.1 % Normal 0.0-8.0 [facility] Comment on above: Performed By: #### 2 [id number] #### [facility] [address] [place] [address] Erythrocyte distribution width (RBC) [Ratio] 15.8 % High 10.9-14.2 [facility] Comment on above: Performed By: #### 2 [id number] #### [facility] [address] [place] [address] Hematocrit (Bld) [Volume fraction] 28.8 % Low 37.7-49.0 [facility] Comment on above: Performed By: #### 2 [id number] #### [facility] [address] [place] [address] Hemoglobin (Bld) [Mass/Vol] 9.3 g/dL Low 13.5-17.5 [facility] Comment on above: Performed By: #### 2 [id number] #### [facility] [facility] [address] [place] [address] Lymphocytes (Bld) [#/Vol] 1.6 E9/L Normal 1.0-4.0 [facility] Comment on above: Performed By: #### 2 [id number] #### [facility] [address] [place] [address] Lymphocytes/100 WBC (Bld) 13.9 % Low 14.0-50.0 [facility] Comment on above: Performed By: #### 2 [id number] #### [facility] [address] [place] [address] MCH (RBC) [Entitic mass] 27.6 pg Normal 27.0-34.0 [facility] Comment on above: Performed By: #### 2 [id number] #### [facility] [address] [place] [address] MCHC (RBC) [Mass/Vol] 32.2 g/dL Normal 31.4-36.0 [facility] Comment on above: Performed By: #### 2 [id number] #### [facility] [address] [place] [address] MCV (RBC) [Entitic vol] 85.7 fL Normal 80.0-100.0 [facility] Comment on above: Performed By: #### 2 [id number] #### [facility] [address] [place] [address] Monocytes (Bld) [#/Vol] 1.0 E9/L Normal 0.2-1.0 [facility] Comment on above: Performed By: #### 2 [id number] #### [facility] [address] [place] [address] Neutrophils (Bld) [#/Vol] 8.9 E9/L High 2.0-7.5 [facility] Comment on above: Performed By: #### 2 535376 #### [facility] [address] [place] [address] Neutrophils/100 WBC (Bld) 76.1 % High 36.0-75.0 [facility] Comment on above: Performed By: #### 2 [id number] #### [facility] [address] [place] [address] Platelet mean volume (Bld) [Entitic vol] 7.3 fL Normal 6.4-10.8 [facility] Comment on above: Performed By: #### 2 677003 #### [facility] [address] [place] [address] Platelets (Bld) [#/Vol] 357.0 E9/L Normal 150.0-500. 0 [facility] Comment on above: Performed By: #### 2 [id number] #### [facility] [address] [place] [address] RBC (Bld) [#/Vol] 3.4 E12/L Low 4.3-5.9 [facility] Comment on above: Performed By: #### 2 [id number] #### [facility] [address] [place] [address] WBC corrected for nucl RBC Auto (Bld) [#/Vol] 11.7 E9/L High 4.0-11.0 [facility] Comment on above: Performed By: #### 2 [id number] #### [facility] [address] [place] [address] Basophils/100 WBC (Bld) 0.5 % Normal 0.0-2.0 [facility] Comment on above: Performed By: #### 2 515100 #### [facility] [address] [place] [address] Basophils/Leukocytes Auto (Bld) [Pure # fraction] 0.1 E9/L Normal 0.0-0.2 [facility] Comment on above: Performed By: #### 2 [id number] #### [facility] [address] [place] [address] Eosinophils (Bld) [#/Vol] 0.2 E9/L Normal 0.0-0.5 [facility] Comment on above: Performed By: #### 2 [id number] #### [facility] [address] [place] [address] Eosinophils/100 WBC (Bld) 1.3 % Normal 0.0-8.0 [facility] Comment on above: Performed By: #### 2 827750 #### [facility] [address] [place] [address] Erythrocyte distribution width (RBC) [Ratio] 15.9 % High 10.9-14.2 [facility] Comment on above: Performed By: #### 2 [id number] #### [facility] [address] [place] [address] Hematocrit (Bld) [Volume fraction] 28.2 % Low 37.7-49.0 [facility] Comment on above: Performed By: #### 2 496173 #### [facility] [address] [place] [address] Hemoglobin (Bld) [Mass/Vol] 9.3 g/dL Low 13.5-17.5 [facility] Comment on above: Performed By: #### 2 657829 #### [facility] [address] [place] [address] Lymphocytes (Bld) [#/Vol] 1.8 E9/L Normal 1.0-4.0 [facility] Comment on above: Performed By: #### 2 191788 #### [facility] [address] [place] [address] Lymphocytes/100 WBC (Bld) 15.8 % Normal 14.0-50.0 [facility] Comment on above: Performed By: #### 2 665722 #### [facility] [address] [place] [address] MCH (RBC) [Entitic mass] 27.9 pg Normal 27.0-34.0 [facility] Comment on above: Performed By: #### 2 731695 #### [facility] [address] [place] [address] MCHC (RBC) [Mass/Vol] 32.9 g/dL Normal 31.4-36.0 [facility] Comment on above: Performed By: #### 2 106891 #### [facility] [address] [place] [address] MCV (RBC) [Entitic vol] 84.9 fL Normal 80.0-100.0 [facility] Comment on above: Performed By: #### 2 983882 #### [facility] [address] [place] [address] Monocytes (Bld) [#/Vol] 1.0 E9/L Normal 0.2-1.0 [facility] Comment on above: Performed By: #### 2 903165 #### [facility] [address] [place] [address] Neutrophils (Bld) [#/Vol] 8.6 E9/L High 2.0-7.5 [facility] Comment on above: Performed By: #### 2 208009 #### [facility] [address] [place] [address] Neutrophils/100 WBC (Bld) 74.1 % Normal 36.0-75.0 [facility] Comment on above: Performed By: #### 2 569898 #### [facility] [address] [place] [address] Platelet 384.0 E9/L Normal 150.0-500. 0 [facility] Comment on above: Performed By: #### 2 775233 #### [facility] [address] [place] [address] Platelet mean volume (Bld) [Entitic vol] 7.3 fL Normal 6.4-10.8 [facility] Comment on above: Performed By: #### 2 979860 #### [facility] [address] [place] [address] RBC (Bld) [#/Vol] 3.3 E12/L Low 4.3-5.9 [facility] Comment on above: Performed By: #### 2 368297 #### [facility] [address] [place] [address] WBC corrected for nucl RBC Auto (Bld) [#/Vol] 11.6 E9/L High 4.0-11.0 [facility] Comment on above: Performed By: #### 2 651277 #### [facility] [address] [place] [address] Basophils/100 WBC (Bld) 0.5 % Normal 0.0-2.0 [facility] Comment on above: Performed By: #### 2 534630 #### [facility] [address] [place] [address] Basophils/Leukocytes Auto (Bld) [Pure # fraction] 0.0 E9/L Normal 0.0-0.2 [facility] Comment on above: Performed By: #### 2 578967 #### [facility] [address] [place] [address] Eosinophils (Bld) [#/Vol] 0.2 E9/L Normal 0.0-0.5 [facility] Comment on above: Performed By: #### 2 300548 #### [facility] [address] [place] [address] Eosinophils/100 WBC (Bld) 2.2 % Normal 0.0-8.0 [facility] Comment on above: Performed By: #### 2 079397 #### [facility] [address] [place] [address] Erythrocyte distribution width (RBC) [Ratio] 16.2 % High 10.9-14.2 [facility] Comment on above: Performed By: #### 2 173057 #### [facility] [address] [place] [address] Hematocrit (Bld) [Volume fraction] 26.3 % Low 37.7-49.0 [facility] Comment on above: Performed By: #### 2 887173 #### [facility] [address] [place] [address] Hemoglobin (Bld) [Mass/Vol] 8.9 g/dL Low 13.5-17.5 [facility] Comment on above: Performed By: #### 2 382574 #### [facility] [address] [place] [address] Lymphocytes (Bld) [#/Vol] 2.3 E9/L Normal 1.0-4.0 [facility] Comment on above: Performed By: #### 2 888107 #### [facility] [address] [place] [address] Lymphocytes/100 WBC (Bld) 21.8 % Normal 14.0-50.0 [facility] Comment on above: Performed By: #### 2 856023 #### [facility] [address] [place] [address] MCH (RBC) [Entitic mass] 28.6 pg Normal 27.0-34.0 [facility] Comment on above: Performed By: #### 2 396012 #### [facility] [address] [place] [address] MCHC (RBC) [Mass/Vol] 34.0 g/dL Normal 31.4-36.0 [facility] Comment on above: Performed By: #### 2 528682 #### [facility] [address] [place] [address] MCV (RBC) [Entitic vol] 84.3 fL Normal 80.0-100.0 [facility] Comment on above: Performed By: #### 2 598414 #### [facility] [address] [place] [address] Monocytes (Bld) [#/Vol] 0.9 E9/L Normal 0.2-1.0 [facility] Comment on above: Performed By: #### 2 112161 #### [facility] [address] [place] [address] Neutrophils (Bld) [#/Vol] 7.0 E9/L Normal 2.0-7.5 [facility] Comment on above: Performed By: #### 2 998683 #### [facility] [address] [place] [address] Neutrophils/100 WBC (Bld) 66.9 % Normal 36.0-75.0 [facility] Comment on above: Performed By: #### 2 523452 #### [facility] [address] [place] [address] Platelet 349.0 E9/L Normal 150.0-500. 0 [facility] Comment on above: Performed By: #### 2 895124 #### [facility] [address] [place] [address] Platelet mean volume (Bld) [Entitic vol] 7.2 fL Normal 6.4-10.8 [facility] Comment on above: Performed By: #### 2 748893 #### [facility] [address] [place] [address] RBC (Bld) [#/Vol] 3.1 E12/L Low 4.3-5.9 [facility] Comment on above: Performed By: #### 2 [id number] #### [facility] [address] [place] [address] WBC corrected for nucl RBC Auto (Bld) [#/Vol] 10.4 E9/L Normal 4.0-11.0 [facility] Comment on above: Performed By: #### 2 168069 #### [facility] [address] [place] [address] CHEMISTRYOrdered By: Lab ROP User on 03-19-2024 Glucose [Mass/Vol] 253 mg/dL High 55 - 99 mg/dL [facility] POC Subsection Comment on above: Result Comment: Isabelle adames RN/ POC Device SN [id number] 1 Invalid Interpretation Code [facility] POC Subsection POC User ID [id number] 1 Invalid Interpretation Code [facility] POC Subsection POC Username JAMISON COTO Invalid Interpretation Code [facility] POC Subsection Glucose [Mass/Vol] 189 mg/dL High 55 - 99 mg/dL [facility] POC Subsection Comment on above: Result Comment: Isabelle adames RN/ POC Device SN [id number] 1 Invalid Interpretation Code [facility] POC Subsection POC User ID [id number] 1 Invalid Interpretation Code [facility] POC Subsection POC Username JAMISON COTO Invalid Interpretation Code [facility] POC Subsection Glucose [Mass/Vol] 202 mg/dL High 55 - 99 mg/dL [facility] POC Subsection Comment on above: Result Comment: Isabelle adames RN/MD POC Device SN [id number] 1 Invalid Interpretation Code [facility] POC Subsection POC User ID [id number] 1 Invalid Interpretation Code [facility] POC Subsection POC Username JAMISON COTO Invalid Interpretation Code [facility] POC Subsection CHEMISTRYOrdered By: SYSTEM SYSTEM on [...] 03-09 Glucose [Mass/Vol] 253 mg/dL High 55-99 [facility] Comment on above: Result Comment: Isabelle MARES Performed By: #### 2 [id number] ####[facility] [address] [place] [address] Glucose [Mass/Vol] 189 mg/dL High 55-99 [facility] Comment on above: Result Comment: Isabelle MARES Performed By: #### 2 [id number] #### [facility] [address] [place] [address] Glucose [Mass/Vol] 202 mg/dL High 55-99 [facility] Comment on above: Result Comment: Isabelle MARES Performed By: #### 2 [id number] #### [facility] [address] [place] [address] HEMATOLOGYOrdered By: SYSTEM SYSTEM on 03-19-2024 Basophils/100 [...] Clinical Summary Inpatient Clinical Summary [place] [id number] Clinical Summary Person Information: Name: CHRISTIAN SHELBY Age: 48 Years : 1975 Sex: Male PCP: JOAN CARRILLO CNP Marital Status: Phone: [phone] Race: White Ethnicity: Non- or Language: [place] Leonean Visit Id: Visit Reason: Hernia; Abdominal pain; HERNIA IN LOWER STOMACH AREA Speciality: Acuity: Enc Type: Inpatient Med Service: Medical Arrival: 03/14/2024 17:37:38 Discharge: Dispo Type: Admitted as IP to this Hosp Address: [address] [place] [id number] Provider Notes: Diagnosis: 1:Ventral hernia Problems Active [...] Follow up: With: Address: When: trauma clinic [address] [place] [address], second floor, [address] [place] [id number] 03/25/2024 9:30 AM Comments: Call to schedule/confirm followup appointment for wound check and GHULAM drain removal Type Location Start Finish State Trauma Initial Follow Up ([facility]) [facility] 03/25/2024 9:30 AM 03/25/2024 9:45 AM Confirmed Patient Education Information: Maureen - Jacklyntt Drainage Tube Care (CUSTOM); Open Hernia Repair, Adult, Care After, [id number]; Diet - Basic Carbohydrate Counting (Custom) Normal [facility] Inpatient Patient Summaryon 03-19-2024 Inpatient Patient [...] Follow-Up Appointments Saturday 9:30 AM EDT Where: Trauma Clinic New Follow Up Appointments after Discharge Follow Up with trauma clinic When: 03/25/2024 09:30 AM EDT Comments: Call to schedule/confirm followup appointment for wound check and GHULAM drain removal Where: [address] [place] [address], second floor, [address] [place] [address]- [phone] Someone Will Contact You Regarding These Appointments [...] Ventral hernia Duration: 7 Days Pickup at [id number] 03/19 9 PM New oxycodone (oxyCODONE 5 mg Tab) 1 Tablets By Mouth Every 6 hours as needed for Pain 8-10 Ventral hernia Duration: 3 Days Pickup at [facility] #[id number] NEEDED FOR PAIN LEVEL 8-10 Unchanged atorvastatin [...] Every day 03/20 9 AM Pharmacy Information [facility] #[id number]: [address], [place] [id number] [phone] Test Results CBC BMP WBC: 11.7 E9/L High (03/19/24 13:30:00) Glucose Lvl: 197 mg/dL (03/19/24 03:18:00) RBC: 3.4 E12/L Low (03/19/24 13:30:00) BUN: 9 mg/dL (03/19/24 03:18:00) HGB: 9.3 gm/dL Low (03/19/24 13:30:00) Creatinine: 0.5 mg/dL (03/19/24 03:18:00) Hct: 28.8 % Low (03/19/24 13:30:00) BUN/Creat Ratio: 18 (03/19/24 03:18:00) MCV: 85.7 fL (03/19/24 13:30:00) Sodium Lvl: 138 mmol/L (03/19/24 03:18:00) MCH: 27.6 pg (03/19/24 13:30:00) Potassium Lvl: 3.3 mmol/L Low (03/19/24 03:18:00) MCHC: 32.2 gm/dL (03/19/24 13:30:00) Chloride: 105 mmol/L (03/19/24 03:18:00) RDW: 15.8 % High (03/19/24 13:30:00) CO2: 28 mmol/L (03/19/24 03:18:00) Platelet: 357 E9/L (03/19/24 13:30:00) AGAP: 8 mEq/L (03/19/24 03:18:00) MPV: 7.3 fL (03/19/24 13:30:00) Calcium Lvl: 7.7 mg/dL Low (03/19/24 03:18:00) Allergies No Known Medication Allergies Problems Ongoing - Any problem that you are currently receiving treatment for. Abdominal hernia Anxiety Left groin mass Morbid obesity Recurrent scrotal infection Scrotal abscess Smoker Type II diabetes mellitus [employer] [place], [place] Neno Reddy MD, FACS DISCHARGE INSTRUCTIONS CARING FOR YOUR THOMAS-MICHAELS DRAINAGE TUBE You have been discharged with a Thomas-Michaels drainage tube. This tube will help healing and reduce the risk of infection by removing fluid through your incision. It is attached to a drain or c (more content not included)... Normal [facility] Inpatient Patient Summary Inpatient Patient Summary [address] [id number] Patient Discharge Instructions PERSON INFORMATION Name: CHRISTIAN SHELBY Date of : 1975 Current Date: 03/19/2024 15:04:03 PHYSICIANS Admitting Physician: Jason West MD Primary Care Physician: JOAN CARRILLO CNP PCP Phone Number: [phone] Comment: Discharge Diagnosis: 1:Ventral hernia Condition at [...] Follow up: With: Address: When: trauma clinic [address] [place] [address] 3, second floor, [address] [place] [address] 03/25/2024 9:30 AM Comments: Call to schedule/confirm followup appointment for wound check and GHULAM drain removal In the event that this physician does not participate in your insurance network, please consult with your insurance company to find a nearby participating provider. Type Location Start Finish State Trauma Initial Follow Up (FT) FT[facility]Trauma Clinic 03/25/2024 9:30 AM 03/25/2024 9:45 AM Confirmed Comment: HERON Landry DUANE G, have received the attached patient education materials/instructions and have verbalized understanding: Patient Signature Date Clinican/Nurse Signature Date HERE ARE THE MEDICATION CHANGES THAT OCCURRED DURING YOUR HOSPITAL STAY New Medications [id number], [address], [place] [id number], [phone] docusate (docusate sodium 100 mg Cap) 1 [...] By Mouth every day. Pharmacy Information: Other: [facility] [place] [facility] Comment: PATIENT EDUCATION INFORMATION Instructions: Martin (more content not included)... Normal [facility] Interdisciplinary Note - Alexander e Manageron 03-19-2024 Interdisciplinary Note - C D Reactor Operator Interdisciplinary Note - C D Reactor Operator CRM to room to discuss DC planning. [...] but there is a DC order in Professor Of Physics faxed DME order down to us that was signed and we did send that into the DME company, still pending the approval [facility] Comment on above: Result Comment: Elec tronically Signed By: Bhavna Mcnair\.br\Date and Time Signed: 03/19/24 15:19 EDT Interdisciplinary Note - C D Reactor Operator Interdisciplinary Note - C D Reactor Operator CRM to room to discuss DC planning. [...] updates later this date from Trauma Team [facility] Comment on above: Result Comment: Elec tronically Signed By: Bhavna Mcnair\.br\Date and Time Signed: 03/19/24 09:36 EDT Interdisciplinary Note - Nut solange 03-19-2024 Interdisciplinary Note - Nutrition Interdisciplinary Note - Nutrition Pt rescreened due to LOS. Pt seen yesterday to discuss glycemic control, see DM ed form for details. Pt diet adv to regular and has fair appetite. Only c/o is constipation. Weight reviewed, noted to have lost 1.8 kg since adm. No nutrition needs identified, full assessment not indicated. [facility] Comment on above: Result Comment: Elec tronically Signed By: Leoncio ROQUE, , Wil\Date and Time Signed: 03/19/24 09:37 EDT Magnesiumon 03-19-2024 Magnesium [Mass/Vol] 1.9 mg/dL Normal 1.3-2.4 [facility] Comment on above: Performed By: #### 2 [id number] #### [facility] [address] [place] [address] Phosphoruson 03-19-2024 Phosphate [Mass/Vol] 2.2 mg/dL Normal 1.9-4.6 [facility] Comment on above: Performed By: #### 2 [id number] #### [facility] [address] [place] [address] eGFRon 03-19-2024 eGFR 125 mL/min/1.73 m2 Normal >=59 [facility] Comment on above: Order Comment: Order added by Discern Expert. Performed By: #### 1 [id number] #### [facility] [address] [place] [address] CBC w/ Auto Diffon 4 Basophils/100 WBC (Bld) 0.7 % Normal 0.0-2.0 [facility] Comment on above: Performed By: #### 2 [id number] #### [facility] [address] [place] [address] Basophils/Leukocytes Auto (Bld) [Pure # fraction] 0.1 E9/L Normal 0.0-0.2 [facility] Comment on above: Performed By: #### 2 [id number] #### [facility] [address] [place] [address] Eosinophils (Bld) [#/Vol] 0.1 E9/L Normal 0.0-0.5 [facility] Comment on above: Performed By: #### 2 604172 #### [facility] [address] [place] [address] Eosinophils/100 WBC (Bld) 0.9 % Normal 0.0-8.0 [facility] Comment on above: Performed By: #### 2 [id number] #### [facility] [address] [place] [address] Erythrocyte distribution width (RBC) [Ratio] 15.6 % High 10.9-14.2 [facility] Comment on above: Performed By: #### 2 [id number] #### [facility] [address] [place] [address] Hematocrit (Bld) [Volume fraction] 28.2 % Low 37.7-49.0 [facility] Comment on above: Performed By: #### 2 939539 #### [facility] [address] [place] [address] Hemoglobin (Bld) [Mass/Vol] 9.2 g/dL Low 13.5-17.5 [facility] Comment on above: Performed By: #### 2 440594 #### [facility] [address] [place] [address] Lymphocytes (Bld) [#/Vol] 1.8 E9/L Normal 1.0-4.0 [facility] Comment on above: Performed By: #### 2 [id number] #### [facility] [address] [place] [address] Lymphocytes/100 WBC (Bld) 14.3 % Normal 14.0-50.0 [facility] Comment on above: Performed By: #### 2 082105 #### [facility] [address] [place] [address] MCH (RBC) [Entitic mass] 27.9 pg Normal 27.0-34.0 [facility] Comment on above: Performed By: #### 2 [id number] #### [facility] [address] [place] [address] MCHC (RBC) [Mass/Vol] 32.7 g/dL Normal 31.4-36.0 [facility] Comment on above: Performed By: #### 2 [id number] #### [facility] [address] [place] [address] MCV (RBC) [Entitic vol] 85.2 fL Normal 80.0-100.0 [facility] [facility] Comment on above: Performed By: #### 2 [id number] #### [facility] [address] [place] [address]010 Monocytes (Bld) [#/Vol] 1.1 E9/L High 0.2-1.0 [facility] Comment on above: Performed By: #### 2 [id number] #### [facility] [address] [place] [address] 26819 Neutrophils (Bld) [#/Vol] 9.6 E9/L High 2.0-7.5 [facility] Comment on above: Performed By: #### 2 [id number] #### [facility] [address] [place] [address] 29405 Neutrophils/100 WBC (Bld) 75.7 % High 36.0-75.0 [facility] Comment on above: Performed By: #### 2 [id number] #### [facility] [address] [place] [address] 72259 Platelet mean volume (Bld) [Entitic vol] 7.6 fL Normal 6.4-10.8 [facility] Comment on above: Performed By: #### 2 [id number] #### [facility] [address] [place] [address] 85132 Platelets (Bld) [#/Vol] 318.0 E9/L Normal 150.0-500. 0 [facility] Comment on above: Performed By: #### 2 [id number] #### [facility] [address] [place] [address] 57474 RBC (Bld) [#/Vol] 3.3 E12/L Low 4.3-5.9 [facility] Comment on above: Performed By: #### 2 [id number] #### [facility] [address] [place] [address] 48561 WBC corrected for nucl RBC Auto (Bld) [#/Vol] 12.7 E9/L High 4.0-11.0 [facility] Comment on above: Performed By: #### 2 [id number] #### [facility] [address] [place] [address] Basophils/100 WBC (Bld) 0.5 % Normal 0.0-2.0 [facility] Comment on above: Performed By: #### 2 [id number] #### [facility] [address] [place] [address] Basophils/Leukocytes Auto (Bld) [Pure # fraction] 0.1 E9/L Normal 0.0-0.2 [facility] Comment on above: Performed By: #### 2 [id number] #### [facility] [address] [place] [address] Eosinophils (Bld) [#/Vol] 0.1 E9/L Normal 0.0-0.5 [facility] Comment on above: Performed By: #### 2 [id number] #### [facility] [address] [place] [address] 18331 Eosinophils/100 WBC (Bld) 0.8 % Normal 0.0-8.0 [facility] Comment on above: Performed By: #### 2 [id number] #### [facility] [address] [place] [address] Erythrocyte distribution width (RBC) [Ratio] 15.6 % High 10.9-14.2 [facility] Comment on above: Performed By: #### 2 [id number] #### [facility] [address] [place] [address] Hematocrit (Bld) [Volume fraction] 27.5 % Low 37.7-49.0 [facility] Comment on above: Performed By: #### 2 [id number] #### [facility] [address] [place] [address] Hemoglobin (Bld) [Mass/Vol] 9.0 g/dL Low 13.5-17.5 [facility] Comment on above: Performed By: #### 2 [id number] #### [facility] [address] [place] [address] Lymphocytes (Bld) [#/Vol] 1.9 E9/L Normal 1.0-4.0 [facility] Comment on above: Performed By: #### 2 [id number] #### [facility] [address] [place] [address] Lymphocytes/100 WBC (Bld) 15.7 % Normal 14.0-50.0 [facility] Comment on above: Performed By: #### 2 [id number] #### [facility] [address] [place] [address] MCH (RBC) [Entitic mass] 27.8 pg Normal 27.0-34.0 [facility] Comment on above: Performed By: #### 2 [id number] #### [facility] [address] [place] [address] MCHC (RBC) [Mass/Vol] 32.8 g/dL Normal 31.4-36.0 [facility] Comment on above: Performed By: #### 2 179736 #### [facility] [address] [place] [address] MCV (RBC) [Entitic vol] 84.8 fL Normal 80.0-100.0 [facility] Comment on above: Performed By: #### 2 [id number] #### [facility] [address] [place] [address] Monocytes (Bld) [#/Vol] 1.0 E9/L Normal 0.2-1.0 [facility] Comment on above: Performed By: #### 2 [id number] #### [facility] [address] [place] [address] Neutrophils (Bld) [#/Vol] 9.1 E9/L High 2.0-7.5 [facility] Comment on above: Performed By: #### 2 793180 #### [facility] [address] [place] [address] Neutrophils/100 WBC (Bld) 75.1 % High 36.0-75.0 [facility] Comment on above: Performed By: #### 2 559553 #### [facility] [address] [place] [address] Platelet mean volume (Bld) [Entitic vol] 7.5 fL Normal 6.4-10.8 [facility] Comment on above: Performed By: #### 2 706986 #### [facility] [address] [place] [address] Platelets (Bld) [#/Vol] 306.0 E9/L Normal 150.0-500. 0 [facility] Comment on above: Performed By: #### 2 [id number] #### [facility] [address] [place] [address] RBC (Bld) [#/Vol] 3.2 E12/L Low 4.3-5.9 [facility] Comment on above: Performed By: #### 2 665756 #### [facility] [address] [place] [address] WBC corrected for nucl RBC Auto (Bld) [#/Vol] 12.1 E9/L High 4.0-11.0 [facility] Comment on above: Performed By: #### 2 [id number] #### [facility] [address] [place] [address] CHEMISTRYOrdered By: SYSTEM SYSTEM on 03-18-2024 Anion [...] 03-09 Glucose [Mass/Vol] 275 mg/dL High 55-99 [facility] Comment on above: Result Comment: Isabelle adames RN/ Performed By: #### 2 [id number] #### [facility] [address] [place] [address] Glucose [Mass/Vol] 231 mg/dL High 55-99 [facility] Comment on above: Result Comment: Tisha didier Meter Performed By: #### 2 [id number] #### [facility] [address] [place] [address] MICRO OTHER TESTSOrdered By: Natalia Burns on 03-18-2024 Occult blood panel (Stl) Positive *ABN* (03/18/24 4:01 PM) Invalid Interpretation Code Negative [facility] [place] [facility] Sero Stl Oclt [place] 03-18-2024 Occult blood panel (Stl) Positive Abnormal Negative [facility] Comment on above: Performed By: #### 2 [id number] #### [facility] [address] [place] [address] BMPon 03-17-2024 Anion gap [Moles/Vol] 12 mmol/L Normal 6-16 [facility] Comment on above: Performed By: #### 2 [id number] #### [facility] [address] [place] [address] Calcium [Mass/Vol] 7.8 mg/dL Low 8.9-11.1 [facility] Comment on above: Performed By: #### 2 [id number] #### [facility] [address] [place] [address] Chloride [Moles/Vol] 103 mmol/L Normal 101-111 [facility] Comment on above: Performed By: #### 2 [id number] #### [facility] [address] [place] [address] CO2 [Moles/Vol] 25 mmol/L Normal 21-31 [facility] Comment on above: Performed By: #### 2 998833 #### [facility] [address] [place] [address] Creatinine [Mass/Vol] 0.7 mg/dL Normal 0.5-1.3 [facility] Comment on above: Performed By: #### 2 [id number] #### [facility] [address] [place] [address] Glucose [Mass/Vol] 240 mg/dL High 55-199 [facility] Comment on above: Performed By: #### 2 524514 #### [facility] [address] [place] [address] Potassium [Moles/Vol] 3.8 mmol/L Normal 3.5-5.3 [facility] Comment on above: Performed By: #### 2 490999 #### [facility] [address] [place] [address] Sodium [Moles/Vol] 136 mmol/L Normal 135-145 [facility] Comment on above: Performed By: #### 2 [id number] #### [facility] [address] [place] [address] Urea nitrogen [Mass/Vol] 16 mg/dL Normal 5-21 [facility] Comment on above: Performed By: #### 2 576126 #### [facility] [address] [place] [address] Urea nitrogen/Creatinine [Mass ratio] 23 No Units High 10-20 [facility] Comment on above: Performed By: #### 2 [id number] #### [facility] [address] [place] [address] CBC w/ Auto Diffon 4 Basophils/100 WBC (Bld) 0.2 % Normal 0.0-2.0 [facility] Comment on above: Performed By: #### 2 012125 #### [facility] [address] [place] [address] Basophils/Leukocytes Auto (Bld) [Pure # fraction] 0.0 E9/L Normal 0.0-0.2 [facility] Comment on above: Performed By: #### 2 [id number] #### [facility] [address] [place] [address] Eosinophils (Bld) [#/Vol] 0.0 E9/L Normal 0.0-0.5 [facility] Comment on above: Performed By: #### 2 [id number] #### [facility] [address] [place] [address] Eosinophils/100 WBC (Bld) 0.1 % Normal 0.0-8.0 [facility] Comment on above: Performed By: #### 2 051315 #### [facility] [address] [place] [address] Erythrocyte distribution width (RBC) [Ratio] 16.1 % High 10.9-14.2 [facility] Comment on above: Performed By: #### 2 359022 #### [facility] [address] [place] [address] Hematocrit (Bld) [Volume fraction] 30.6 % Low 37.7-49.0 [facility] Comment on above: Performed By: #### 2 [id number] #### [facility] [address] [place] [address] Hemoglobin (Bld) [Mass/Vol] 10.1 g/dL Low 13.5-17.5 [facility] Comment on above: Performed By: #### 2 016230 #### [facility] [address] [place] [address] Lymphocytes (Bld) [#/Vol] 1.3 E9/L Normal 1.0-4.0 [facility] Comment on above: Performed By: #### 2 [id number] #### [facility] [address] [place] [address] Lymphocytes/100 WBC (Bld) 8.1 % Low 14.0-50.0 [facility] Comment on above: Performed By: #### 2 747920 #### [facility] [address] [place] [address] MCH (RBC) [Entitic mass] 27.8 pg Normal 27.0-34.0 [facility] Comment on above: Performed By: #### 2 [id number] #### [facility] [address] [place] [address] MCHC (RBC) [Mass/Vol] 32.8 g/dL Normal 31.4-36.0 [facility] Comment on above: Performed By: #### 2 982045 #### [facility] [address] [place] [address] MCV (RBC) [Entitic vol] 84.7 fL Normal 80.0-100.0 [facility] Comment on above: Performed By: #### 2 460342 #### [facility] [address] [place] [address] Monocytes (Bld) [#/Vol] 1.6 E9/L High 0.2-1.0 [facility] Comment on above: Performed By: #### 2 [id number] #### [facility] [address] [place] [address] Neutrophils (Bld) [#/Vol] 12.9 E9/L High 2.0-7.5 [facility] Comment on above: Performed By: #### 2 096087 #### [facility] [address] [place] [address] Neutrophils/100 WBC (Bld) 81.8 % High 36.0-75.0 [facility] Comment on above: Performed By: #### 2 173289 #### [facility] [address] [place] [address] Platelet mean volume (Bld) [Entitic vol] 7.4 fL Normal 6.4-10.8 [facility] Comment on above: Performed By: #### 2 [id number] #### [facility] [address] [place] [address] Platelets (Bld) [#/Vol] 290.0 E9/L Normal 150.0-500. 0 [facility] Comment on above: Performed By: #### 2 288951 #### [facility] [address] [place] [address] RBC (Bld) [#/Vol] 3.6 E12/L Low 4.3-5.9 [facility] Comment on above: Performed By: #### 2 748434 #### [facility] [address] [place] [address] WBC corrected for nucl RBC Auto (Bld) [#/Vol] 15.8 E9/L High 4.0-11.0 [facility] Comment on above: Performed By: #### 2 234456 #### [facility] [address] [place] [address] CHEMISTRYOrdered By: SYSTEM SYSTEM on 03-17-2024 Anion [...] - 20 Remisol Chem Capillary Glucose POCon 07-0 Glucose [Mass/Vol] 193 mg/dL High 55-99 [facility] Comment on above: Result Comment: Isabelle adames RN/ Performed By: #### 2 [id number] #### [facility] [address] [place] [address] Inpatient Clinical Summaryon 03-17-2024 Inpatient Clinical Summary Inpatient Clinical Summary [address] [address] Clinical Summary Person Information: Name: CHRISTIAN SHELBY Age: 48 Years : 1975 Sex: Male PCP: JOAN CARRILLO CNP Marital Status: Phone: [phone] Race: White Ethnicity: Non- or Language: [place] Leonean Visit Id: Visit Reason: Hernia; Abdominal pain; HERNIA IN LOWER STOMACH AREA Speciality: Acuity: Enc Type: Inpatient Med Service: Medical Arrival: 03/14/2024 17:37:38 Discharge: Dispo Type: Admitted as IP to this Hosp Address: [address] [place] [id number] Provider Notes: Diagnosis: 1:Ventral hernia Problems Active [...] Information: Diet - Basic Carbohydrate Counting (Custom) [facility] Inpatient Patient Summaryon 03-17-2024 Inpatient Patient Summary Inpatient Patient Summary [place] [id number] Patient Discharge Instructions PERSON INFORMATION Name: CHRISTIAN SHELBY Date of : 1975 Current Date: 03/17/2024 07:59:09 PHYSICIANS Admitting Physician: Jason West MD Primary Care Physician: JOAN CARRILLO CNP PCP Phone Number: [phone] Comment: Discharge Diagnosis: 1:Ventral hernia Condition at [...] hot dog bun (1 ounce) 3/4 cup nlolf-lx-gmo cereal 1/2 cup cooked cereal 1 cup broth-based soup 4-6 small crane oiler (more content not included)... Normal [facility] Interdisciplinary Note - Alexander e Manageron 03-17-2024 Interdisciplinary Note - C D Reactor Operator Interdisciplinary Note - C D Reactor Operator CRM to room to discuss DC planning. [...] Trauma is a goal of Saturday Normal [facility] Comment on above: Result Comment: Elec tronically Signed By: Bhavna Mcnair\.br\Date and Time Signed: 03/17/24 08:45 EDT Magnesiumon 03-17-2024 Magnesium [Mass/Vol] 2.2 mg/dL Normal 1.3-2.4 [facility] Comment on above: Performed By: #### 2 [id number] #### [facility] [address] [place] [address] Main OR Intraoperative Recor don 03-17-2024 Main OR Intraoperative Record Main OR Intraoperative Record IntraOp Document Type FT Summary Primary Physician: Jason West MD Finalized Date/Time: 03/17/24 10:26:36 Pt. Name: CHRISTIAN SHELBY /Sex: 1975 Male Med Rec #: [id number] Physician: Jason West MD Financial #: [id number] Pt. Type: I Room/Bed: [place] [address] Admit/Disch: 03/14/24 17:37:38 - Institution: Case Times [...] Role Performed Anesthesiologist of Surgeon - Primary Wall Taper - Primary Record Time In 03/15/24 09:58:00 03/15/24 09:58:00 03/15/24 09:58:00 Time Out 03/15/24 13:44:00 03/15/24 13:44:00 03/15/24 13:44:00 Procedure LAPAROTOMY EXPLORATORY LAPAROTOMY EXPLORATORY LAPAROTOMY EXPLORATORY Comments Last Modified By: Petra WILHELM, Rosaura Lambert RN, Rosaura Lambert RN, Rosaura Peter 03/15/24 Cynthia Peter 03/15/24 Cynthia Peter 03/15/24 14:04:22 14:04:22 14:04:22 Entry 4 Entry 5 Entry 6 Case Attendee Abhinav Bailey, Tanmay Ingram Role Performed MACHINE STONE POLISHER APPRENTICE Scrub - Primary Japanese Interpreter Time In 03/15/24 09:58:00 03/15/24 09:58:00 03/15/24 09:58:00 Time Out 03/15/24 13:44:00 03/15/24 13:44:00 03/15/24 11:46:00 Procedure LAPAROTOMY EXPLORATORY LAPAROTOMY EXPLORATORY LAPAROTOMY EXPLORATORY Comments Last Modified By: Petra WILHELM, Rosaura Lambert RN, Rosaura Lambert RN, Rosaura Peter 03/15/24 Cynthia Peter 03/15/24 Cynthia P 03/15/24 14:04:22 14:04:22 14:04:22 [...] PreOp Antibiotic Yes Time Out Brett MARTINEZ, Jason García, Roverto [facility] [place] CARNEY, Petra Breen RN, Rosaura Peter, Abhinav Bailey [place], [place] A Time Out Complete 03/15/24 [...] Pre-Care Te (more content not included)... Normal [facility] eGFRon 03-17-2024 eGFR 113 mL/min/1.73 m2 Normal >=59 [facility] Comment on above: Order Comment: Order added by Discern Expert. Performed By: #### 1 [id number] #### [facility] [address] [place] [address] BMPon 03-16-2024 Anion gap [Moles/Vol] 14 mmol/L Normal 6-16 [facility] Comment on above: Performed By: #### 2 [id number] #### [facility] [address] [place] [address] Calcium [Mass/Vol] 7.7 mg/dL Low 8.9-11.1 [facility] Comment on above: Performed By: #### 2 [id number] #### [facility] [address] [place] [address] Chloride [Moles/Vol] 105 mmol/L Normal 101-111 [facility] Comment on above: Performed By: #### 2 [id number] #### [facility] [address] [place] [address] CO2 [Moles/Vol] 22 mmol/L Normal 21-31 [facility] Comment on above: Performed By: #### 2 [id number] #### [facility] [address] [place] [address] Creatinine [Mass/Vol] 0.8 mg/dL Normal 0.5-1.3 [facility] Comment on above: Performed By: #### 2 [id number] #### [facility] [address] [place] [address] Glucose [Mass/Vol] 279 mg/dL High 55-199 [facility] Comment on above: Performed By: #### 2 [id number] #### [facility] [address] [place] [address] Potassium [Moles/Vol] 4.0 mmol/L Normal 3.5-5.3 [facility] Comment on above: Performed By: #### 2 [id number] #### [facility] [address] [place] [address] Sodium [Moles/Vol] 137 mmol/L Normal 135-145 [facility] Comment on above: Performed By: #### 2 [id number] #### [facility] [address] [place] [address] Urea nitrogen [Mass/Vol] 17 mg/dL Normal 5-21 [facility] Comment on above: Performed By: #### 2 [id number] #### [facility] [address] [place] [address] Urea nitrogen/Creatinine [Mass ratio] 21 No Units High 10-20 [facility] Comment on above: Performed By: #### 2 [id number] #### [facility] [address] [place] [address] CBC w/ Auto Diffon 4 Basophils/100 WBC (Bld) 0.2 % Normal 0.0-2.0 [facility] Comment on above: Performed By: #### 2 759046 #### [facility] [address] [place] [address] Basophils/Leukocytes Auto (Bld) [Pure # fraction] 0.0 E9/L Normal 0.0-0.2 [facility] Comment on above: Performed By: #### 2 [id number] #### [facility] [address] [place] [address] Eosinophils (Bld) [#/Vol] 0.0 E9/L Normal 0.0-0.5 [facility] Comment on above: Performed By: #### 2 440802 #### [facility] [address] [place] [address] Eosinophils/100 WBC (Bld) 0.0 % Normal 0.0-8.0 [facility] Comment on above: Performed By: #### 2 604051 #### [facility] [address] [place] [address] Erythrocyte distribution width (RBC) [Ratio] 16.3 % High 10.9-14.2 [facility] Comment on above: Performed By: #### 2 [id number] #### [facility] [address] [place] [address] Hematocrit (Bld) [Volume fraction] 35.3 % Low 37.7-49.0 [facility] Comment on above: Performed By: #### 2 839340 #### [facility] [address] [place] [address] Hemoglobin (Bld) [Mass/Vol] 11.7 g/dL Low 13.5-17.5 [facility] Comment on above: Performed By: #### 2 771918 #### [facility] [address] [place] [address] Lymphocytes (Bld) [#/Vol] 1.0 E9/L Normal 1.0-4.0 [facility] Comment on above: Performed By: #### 2 [id number] #### [facility] [address] [place] [address] Lymphocytes/100 WBC (Bld) 6.3 % Low 14.0-50.0 [facility] Comment on above: Performed By: #### 2 324255 #### [facility] [address] [place] [address] MCH (RBC) [Entitic mass] 27.9 pg Normal 27.0-34.0 [facility] Comment on above: Performed By: #### 2 [id number] #### [facility] [address] [place] [address] MCHC (RBC) [Mass/Vol] 33.1 g/dL Normal 31.4-36.0 [facility] Comment on above: Performed By: #### 2 [id number] #### [facility] [address] [place] [address] MCV (RBC) [Entitic vol] 84.4 fL Normal 80.0-100.0 [facility] Comment on above: Performed By: #### 2 [id number] #### [facility] [address] [place] [address] [id number] Monocytes (Bld) [#/Vol] 1.9 E9/L High 0.2-1.0 [facility] Comment on above: Performed By: #### 2 [id number] #### [facility] [address] [place] [address] Neutrophils (Bld) [#/Vol] 13.5 E9/L High 2.0-7.5 [facility] Comment on above: Performed By: #### 2 [id number] #### [facility] [address] [place] [address] Neutrophils/100 WBC (Bld) 82.1 % High 36.0-75.0 [facility] Comment on above: Performed By: #### 2 [id number] #### [facility] [address] [place] [address] Platelet 340.0 E9/L Normal 150.0-500. 0 [facility] Comment on above: Performed By: #### 2 [id number] #### [facility] [address] [place] [address] Platelet mean volume (Bld) [Entitic vol] 7.1 fL Normal 6.4-10.8 [facility] Comment on above: Performed By: #### 2 [id number] #### [facility] [address] [place] [address] RBC (Bld) [#/Vol] 4.2 E12/L Low 4.3-5.9 [facility] Comment on above: Performed By: #### 2 [id number] #### [facility] [address] [place] [address] WBC corrected for nucl RBC Auto (Bld) [#/Vol] 16.5 E9/L High 4.0-11.0 [facility] Comment on above: Result Comment: Ekaterina pheral smear review performed. Performed By: #### 2 [id number] #### [facility] [address] [place] [address] Capillary Glucose POCon Glucose [Mass/Vol] 224 mg/dL High 55-99 [facility] Comment on above: Result Comment: Isabelle adames RN/ Performed By: #### 2 [id number] #### [facility] [address] [place] [address] Glucose [Mass/Vol] 242 mg/dL High 55-99 [facility] Comment on above: Result Comment: Isabelle MARES Performed By: #### 2 [id number] #### [facility] [address] [place] [address] Glucose [Mass/Vol] 253 mg/dL High 55-99 [facility] Comment on above: Result Comment: Isabelle MARES Performed By: #### 2 [id number] #### [facility] [address] [place] [address] Glucose [Mass/Vol] 261 mg/dL High 55-99 [facility] Comment on above: Result Comment: Isabelle MARES Performed By: #### 2 [id number] #### [facility] [address] [place] [address] ED Note-Physicianon 03-16-20 ED Note-Physician ED Note-Physician Basic Information Time Seen: Comfort BEAN Baljit 03/14/2024 17:49 History of Present Illness 48-year-old [...] Diagnostic Results No qualifying data available. Normal [facility] Comment on above: Result Comment: Elec tronically Signed By: Comfort BEAN, Baljit\.br\Date and Time Signed: 03/15/24 08:03 EDT\.br\Electronically Co-Signed By: Demarco Ferreira DO\Maddiebr\Date and Time Co-Signed: 03/16/24 07:04 EDT [id number] 03-16-2024 HbA1c (Bld) [Mass fraction] 9.4 % High <=5.9 [facility] Comment on above: Performed By: #### 7 [id number] #### [facility] [address] [place] [address] Inpatient Clinical Summaryon 03-16-2024 Inpatient Clinical Summary Inpatient Clinical Summary [address] [address] Clinical Summary Person Information: Name: CHRISTIAN SHELBY Age: 48 Years : 1975 Sex: Male PCP: JOAN CARRILLO CNP Marital Status: Phone: [phone] Race: White Ethnicity: Non- or Language: Sierra Leonean Visit Id: Visit Reason: Hernia; Abdominal pain; HERNIA IN LOWER STOMACH AREA Speciality: Acuity: Enc Type: Inpatient Med Service: Medical Arrival: 03/14/2024 17:37:38 Discharge: Dispo Type: Admitted as IP to this Hosp Address: [address] [place] [phone] Provider Notes: Diagnosis: 1:Ventral hernia Problems Active [...] Physician: Follow up: Patient Education Information: Normal [facility] Inpatient Patient Summaryon 03-16-2024 Inpatient Patient Summary Inpatient Patient Summary [place] [id number] Patient Discharge Instructions PERSON INFORMATION Name: CHRISTIAN SHELBY Date of : 1975 Current Date: 03/16/2024 15:09:18 PHYSICIANS Admitting Physician: Jasno West MD Primary Care Physician: JOAN CARRILLO CNP PCP Phone Number: [phone] Comment: Discharge Diagnosis: 1:Ventral hernia Condition at [...] find a nearby participating provider. Comment: I HERON CHRISTIAN Jayde, have received the attached patient education materials/instructions [...] Leaflets: You may receive a survey from [address] asking you to rate your care experience. Your feedback is important and will help us understand what we do well and how we can improve the quality of care we provide to you, your loved ones and our community. It?s an honor to serve you. Thank you for choosing [facility] Normal [facility] Interdisciplinary Note - Alexander e Manageron 03-16-2024 Interdisciplinary Note - C D Reactor Operator Interdisciplinary Note - C D Reactor Operator CRM to room to discuss DC planning. [...] DC Saturday if he progresses well Normal [facility] Comment on above: Result Comment: Elec tronically Signed By: Bhavna Mcnair\.br\Date and Time Signed: 03/16/24 12:26 EDT Interdisciplinary Note - C D Reactor Operator Interdisciplinary Note - C D Reactor Operator CRM to room to discuss DC planning. [...] updated. CRM following DC date TBD Normal [facility] Comment on above: Result Comment: Elec tronically Signed By: Bhavna Mcnair\.br\Date and Time Signed: 03/16/24 08:32 EDT Magnesiumon 03-16-2024 Magnesium [Mass/Vol] 1.8 mg/dL Normal 1.3-2.4 [facility] Comment on above: Performed By: #### 2 [id number] #### [facility] [address] [place] [address] Phosphoruson 03-16-2024 Phosphate [Mass/Vol] 3.7 mg/dL Normal 1.9-4.[address] [facility] Comment on above: Performed By: #### 2 [id number] #### [facility] [address] [place] [address] eGFRon 03-16-2024 eGFR 109 mL/min/1.73 m2 Normal >=59 [facility] Comment on above: Order Comment: Order added by Discern Expert. Performed By: #### 1 [id number] #### [facility] [address] [place] [address] ABO/Rhon 03-15-2024 ABO/Rh Positive Invalid Interpretation Code [facility] Comment on above: Performed By: #### 2 [id number] #### [facility] [address] [place] [address] ABO/Rh History Checkon 03-15 ABO/Rh History Check Type verified by second s Normal [facility] Comment on above: Performed By: #### 1 [id number] #### [facility] [address] [place] [address] ABO/Rh Retypeon 03-15-2024 ABO/Rh Retype Interp Positive Invalid Interpretation Code [facility] Comment on above: Performed By: #### 1 [id number] #### [facility] [address] [place] [address] ABSCon 03-15-2024 ABSC Gel Interp Negative Normal [facility] Comment on above: Performed By: #### 1 [id number] #### [facility] [address] [place] [address] BLOOD BANKOrdered By: Tabatha Ren on 03-15-2024 ABO/Rh Interp Positive Invalid Interpretation Code [facility] BB Subsection ABSC Gel Interp Negative (03/15/24 6:28 AM) Normal [facility] BB Subsection BMPon 03-15-2024 Anion gap [Moles/Vol] 14 mmol/L Normal 02-22 [facility] Comment on above: Performed By: #### 2 [id number] #### [facility] [address] [place] [address] Calcium [Mass/Vol] 8.3 mg/dL Low 8.9-11.1 [facility] Comment on above: Performed By: #### 2 [id number] #### [facility] [address] [place] [address] Chloride [Moles/Vol] 103 mmol/L Normal 101-111 [facility] Comment on above: Performed By: #### 2 [id number] #### [facility] [address] [place] [address] CO2 [Moles/Vol] 22 mmol/L Normal 21-31 [facility] Comment on above: Performed By: #### 2 [id number] #### [facility] [address] [place] [address] Creatinine [Mass/Vol] 0.6 mg/dL Normal 0.5-1.3 [facility] Comment on above: Performed By: #### 2 [id number] #### [facility] [address] [place] [address] Glucose [Mass/Vol] 215 mg/dL High 55-199 [facility] Comment on above: Performed By: #### 2 [id number] #### [facility] [address] [place] [address] Potassium [Moles/Vol] 4.0 mmol/L Normal 3.5-5.3 [facility] Comment on above: Performed By: #### 2 [id number] #### [facility] [address] [place] [address] Sodium [Moles/Vol] 135 mmol/L Normal 135-145 [facility] Comment on above: Performed By: #### 2 [id number] #### [facility] [address] [place] [address] Urea nitrogen [Mass/Vol] 12 mg/dL Normal 5-21 [facility] Comment on above: Performed By: #### 2 [id number] #### [facility] [address] [place] [address] Urea nitrogen/Creatinine [Mass ratio] 20 No Units Normal 10-20 [facility] Comment on above: Performed By: #### 2 [id number] #### [facility] [address] [place] [address] Blood Bank ID#on 03-15-2024 BBID# [id number] Invalid Interpretation Code [facility] Comment on above: Performed By: #### 1 [id number] #### [facility] [address] [place] [address] CBC w/ Auto Diffon 4 Basophils/100 WBC (Bld) 0.2 % Normal 0.0-2.0 [facility] Comment on above: Performed By: #### 2 [id number] #### [facility] [address] [place] [address] Basophils/Leukocytes Auto (Bld) [Pure # fraction] 0.0 E9/L Normal 0.0-0.2 [facility] Comment on above: Performed By: #### 2 [id number] #### [facility] [address] [place] [address] Eosinophils (Bld) [#/Vol] 0.0 E9/L Normal 0.0-0.5 [facility] Comment on above: Performed By: #### 2 [id number] #### [facility] [address] [place] [address] Eosinophils/100 WBC (Bld) 0.2 % Normal 0.0-8.0 [facility] Comment on above: Performed By: #### 2 [id number] #### [facility] [address] [place] [address] Erythrocyte distribution width (RBC) [Ratio] 16.1 % High 10.9-14.2 [facility] Comment on above: Performed By: #### 2 [id number] #### [facility] [address] [place] [address] Hematocrit (Bld) [Volume fraction] 41.8 % Normal 37.7-49.0 [facility] Comment on above: Performed By: #### 2 [id number] #### [facility] [address] [place] [address] Hemoglobin (Bld) [Mass/Vol] 14.0 g/dL Normal 13.5-17.5 [facility] Comment on above: Performed By: #### 2 [id number] #### [facility] [address] [place] [address] Lymphocytes (Bld) [#/Vol] 1.5 E9/L Normal 1.0-4.0 [facility] Comment on above: Performed By: #### 2 [id number] #### [facility] [address] [place] [address] Lymphocytes/100 WBC (Bld) 12.2 % Low 14.0-50.0 [facility] Comment on above: Performed By: #### 2 [id number] #### [facility] [address] [place] [address] MCH (RBC) [Entitic mass] 27.9 pg Normal 27.0-34.0 [facility] Comment on above: Performed By: #### 2 [id number] #### [facility] [address] [place] [address] MCHC (RBC) [Mass/Vol] 33.5 g/dL Normal 31.4-36.0 [facility] Comment on above: Performed By: #### 2 [id number] #### [facility] [address] [place] [address] MCV (RBC) [Entitic vol] 83.2 fL Normal 80.0-100.0 [facility] Comment on above: Performed By: #### 2 [id number] #### [facility] [address] [place] [address] Monocytes (Bld) [#/Vol] 0.8 E9/L Normal 0.2-1.0 [facility] Comment on above: Performed By: #### 2 [id number] #### [facility] [address] [place] [address] Neutrophils (Bld) [#/Vol] 10.3 E9/L High 2.0-7.5 [facility] Comment on above: Performed By: #### 2 195594 #### [facility] [address] [place] [address] Neutrophils/100 WBC (Bld) 81.2 % High 36.0-75.0 [facility] Comment on above: Performed By: #### 2 [id number] #### [facility] [address] [place] [address] Platelet 312.0 E9/L Normal 150.0-500. 0 [facility] Comment on above: Performed By: #### 2 [id number] #### [facility] [address] [place] [address] Platelet mean volume (Bld) [Entitic vol] 7.0 fL Normal 6.4-10.8 [facility] Comment on above: Performed By: #### 2 [id number] #### [facility] [address] [place] [address] RBC (Bld) [#/Vol] 5.0 E12/L Normal 4.3-5.9 [facility] Comment on above: Performed By: #### 2 [id number] #### [facility] [address] [place] [address] WBC corrected for nucl RBC Auto (Bld) [#/Vol] 12.7 E9/L High 4.0-11.0 [facility] Comment on above: Performed By: #### 2 [id number] #### [facility] [address] [place] [address] CHEMISTRYOrdered By: Sara perez on 03-15-2024 HbA1c (Bld) [Mass fraction] 9.4 % High <=5.9% [facility] ChemAutoSS CHEMISTRYOrdered By: SYSTEM SYSTEM on 03-15-2024 Lactic Acid Lvl 0.8 mmol/L Normal 0.5 - 2.2 mmol/L Remisol Chem Capillary Glucose POCon Glucose [Mass/Vol] 254 mg/dL High 55-99 [facility] Comment on above: Result Comment: Isabelle adames RN/ Performed By: #### 2 [id number] #### [facility] [address] [place] [address] Glucose [Mass/Vol] 243 mg/dL High 55-99 [facility] Comment on above: Result Comment: Isabelle adames RN/ Performed By: #### 2 [id number] #### [facility] [address] [place] [address] Glucose [Mass/Vol] 261 mg/dL High 55-99 [facility] Comment on above: Performed By: #### 2 [id number] #### [facility] [address] [place] [address] Glucose [Mass/Vol] 218 mg/dL High 55-99 [facility] Comment on above: Result Comment: Isabelle adames RN/ Performed By: #### 2 [id number] #### [facility] [address] [place] [address] Lactic Acidon 03-15-2024 Lactic Acid Lvl 0.8 mmol/L Normal 0.5-2.2 [facility] Comment on above: Performed By: #### 2 [id number] #### [facility] [address] [place] [address] Magnesiumon 03-15-2024 Magnesium [Mass/Vol] 1.8 mg/dL Normal 1.3-2.4 [facility] Comment on above: Performed By: #### 2 [id number] #### [facility] [address] [place] [address] Main OR Intraoperative Recor don 03-15-2024 Main OR Intraoperative Record Main OR Intraoperative Record IntraOp Document Type FT Summary Primary Physician: Jason West MD Finalized Date/Time: 03/15/24 14:06:28 Pt. Name: CHRISTIAN SHELBY/Sex: 1975 Male Med Rec #: [id number] Physician: Salvatore WOOTEN DO Financial #: [id number] Pt. Type: I Room/Bed: [facility]/ Admit/Disch: 03/14/24 17:37:38 - Institution: Case Times [...] Role Performed Anesthesiologist of Surgeon - Primary Wall Taper - Primary Record Time In 03/15/24 09:58:00 03/15/24 09:58:00 03/15/24 09:58:00 Time Out 03/15/24 13:44:00 03/15/24 13:44:00 03/15/24 13:44:00 Procedure LAPAROTOMY EXPLORATORY LAPAROTOMY EXPLORATORY LAPAROTOMY EXPLORATORY Comments Last Modified By: Petra RN, Rosaura Lambert RN, Rosaura Lambert RN, Rosaura Marie P 03/15/24 Cynthia P 03/15/24 Cynthia P 03/15/24 14:04:22 14:04:22 14:04:22 Entry 4 Entry 5 Entry 6 Case Attendee Abhinav Bailey, Tanmay Ingram Role Performed MACHINE STONE POLISHER APPRENTICE Scrub - Primary Japanese Interpreter Time In 03/15/24 09:58:00 03/15/24 09:58:00 03/15/24 [...] Antibiotic Yes Time Out Jason West MD, Roverto Patel Participants Jr CARNEY, Ambrosio Bryson, Petra WILHELM, Rosaura Peter, Abhinav Bailey [place], [place] A Time Out Complete 03/15/24 [...] additional precautions (more content not included)... Normal [facility] Main OR PACU I Recordon Main OR PACU I Record Main OR PACU I Record PACU Phase I Document Type FT Summary Primary Physician: Jason West MD Finalized Date/Time: 03/15/24 15:10:31 Pt. Name: CHRISTIAN SHELBY D.O.B./Sex: 1975 Male Med Rec #: [id number] Physician: Salvatore WOOTEN DO Financial #: [id number] Pt. Type: I Room/Bed: [place] [address] Admit/Disch: 03/14/24 17:37:38 - Institution: Case Times [...] Signed By: Zulma Cabezas RN 03/15/24 15:10 Normal [facility] Main OR Preoperative Recordo n 03-15-2024 Main OR Preoperative Record Main OR Preoperative Record Holding Area Document Type FT Summary Primary Physician: Jason West MD Finalized Date/Time: 03/15/24 10:43:16 Pt. Name: CHRISTIAN SHELBY./Sex: 1975 Male Med Rec #: [id number] Physician: Salvatore WOOTEN DO Financial #: [id number] Pt. Type: I Room/Bed: [facility]/ Admit/Disch: 03/14/24 17:37:38 - Institution: Case Times [...] By: Rosaura Lambert RN 03/15/24 10:43 Normal [facility] Operative Reporton 4 Operative Report Operative Report [facility] Acute Care Surgery Operative Report Date of Service: 03/15/24 Preop Diagnosis: Incarcerated ventral hernia Postop Diagnosis: Same Procedure: Exploratory laparotomy, lysis of adhesions, resection of hernia sac, primary repair of ventral hernia, bilateral TAP blocks Surgeon:Jason West MD Bank Compliance Officer: Abhinav Bailey RNFA Anesthesia: General endotracheal EBL: [...] parts of the procedure. Jason West MD Normal [facility] Comment on above: Result Comment: Elec [...] - Discontinue Craft catheter tomorrow - Dilaudid RN EMERGENCY ROOM for pain control Jason West MD Normal [facility] Comment on above: Result Comment: Elec tronically Signed By: Jason West MD\.br\Date and Time Signed: 03/15/24 14:35 EDT Phosphoruson 03-15-2024 Phosphate [Mass/Vol] 2.6 mg/dL Normal 1.9-4.6 [facility] Comment on above: Performed By: #### 2 [id number] #### [facility] [address] [place] [address] URINALYSISOrdered By: SYSTEM SYSTEM on 03-15-2024 Bilirubin Ql (U) Negative Normal Negativemg /dL [facility] UA Auto SS Clarity (U) Clear (03/15/24 10:18 AM) Normal Clear [facility] UA Auto SS Color (U) Light-Yellow 1 (03/15/24 10:18 AM) Normal Yellow [facility] UA Auto SS Comment on above: Interpretive Data: M icroscopic readings are only performed on those samples that meet specific criteria set forth by [facility]. Glucose Ql (U) 4+ mg/dL Invalid Interpretation Code Negativemg /dL [facility] UA Auto SS Hemoglobin Auto test strip (U) [Mass/Vol] Negative Normal Negativemg /dL [facility] UA Auto SS Ketones Auto test strip Ql (U) 3+ mg/dL Invalid Interpretation Code Negativemg /dL [facility] UA Auto SS Leukocyte esterase Auto test strip Ql (U) Negative Normal NegativeLe u/uL [facility] UA Auto SS Nitrite Auto test strip Ql (U) Negative Normal Negativemg /dL [facility] UA Auto SS pH (U) 6.0 *NA* (03/15/24 10:18 AM) Invalid Interpretation Code 5.0 - 9.0 [facility] UA Auto SS Protein Ql (U) Trace mg/dL Invalid Interpretation Code Negativemg /dL [facility] UA Auto SS Specific gravity (U) [Rel density] 1.038 *NA* (03/15/24 10:18 AM) Invalid Interpretation Code 1.005 - 1.030 [facility] UA Auto SS Urobilinogen (U) [Mass/Vol] Negative Normal Negativemg /dL [facility] UA Auto SS URINALYSISOrdered By: Rosaura Lambert on 03-15-2024 UA Spec Desc Craft (03/15/24 10:18 AM) Normal [facility] UA Auto SS Urinalysis with Microon 07-0 Bilirubin Ql (U) Negative Normal Negative [facility] Comment on above: Performed By: #### 4 [id number] #### [facility] [address] [place] [address] Clarity (U) Clear Normal Clear [facility] Comment on above: Performed By: #### 4 [id number] #### [facility] [address] [place] [address] Color (U) Light-Yellow Normal Yellow [facility] Comment on above: Result Comment: Micr oscopic readings are only performed on those samples that meet specific criteria set forth by [facility]. Performed By: #### 4 [id number] #### [facility] [address] [place] [address] Glucose Ql (U) 4+ mg/dL Abnormal Negative [facility] Comment on above: Performed By: #### 4 [id number] #### [facility] [address] [place] [address] Hemoglobin Auto test strip (U) [Mass/Vol] Negative Normal Negative [facility] Comment on above: Performed By: #### 4 [id number] #### [facility] [address] [place] [address] Ketones Auto test strip Ql (U) 3+ mg/dL Abnormal Negative [facility] Comment on above: Performed By: #### 4 [id number] #### [facility] [address] [place] [address] Leukocyte esterase Auto test strip Ql (U) Negative Normal Negative [facility] [facility] Comment on above: Performed By: #### 4 [id number] #### [facility] [address] [place] [address] Nitrite Auto test strip Ql (U) Negative Normal Negative [facility] Comment on above: Performed By: #### 4 [id number] #### [facility] [address] [place] [address] pH (U) 6.0 [pH] Invalid Interpretation Code 5.0-9.0 [facility] Comment on above: Performed By: #### 4 [id number] #### [facility] [address] [place] [address] Protein Ql (U) Trace Abnormal Negative [facility] Comment on above: Performed By: #### 4 [id number] #### [facility] [address] [place] [address] Specific gravity (U) [Rel density] 1.038 Invalid Interpretation Code 1.005-1.03 0 [facility] Comment on above: Performed By: #### 4 [id number] #### [facility] [address] [place] [address] Urobilinogen (U) [Mass/Vol] Negative Normal Negative [facility] Comment on above: Performed By: #### 4 [id number] #### [facility] [address] [place] [address] Type of Urine collection method Craft Normal [facility] Comment on above: Performed By: #### 4 [id number] #### [facility] [address] [place] [address] XR Abdomen 1 Viewon 03-15-20 24 XR [...] mGy = 12.53 DAP = na Normal [facility] eGFRon 03-15-2024 eGFR 119 mL/min/1.73 m2 Normal >=59 [facility] Comment on above: Order Comment: Order added by Discern Expert. Performed By: #### 1 [id number] #### [facility] [address] [place] [address] BLOOD BANKOrdered By: Tabatha Ren on 03-14-2024 ABO/Rh Retype Interp Positive Invalid Interpretation Code [facility] BB Subsection BMPon 03-14-2024 Anion gap [Moles/Vol] 17 mmol/L High 6-16 [facility] Comment on above: Performed By: #### 2 [id number] #### [facility] [address] [place] [address] Calcium [Mass/Vol] 8.4 mg/dL Low 8.9-11.1 [facility] Comment on above: Performed By: #### 2 [id number] #### [facility] [address] [place] [address] Chloride [Moles/Vol] 104 mmol/L Normal 101-111 [facility] Comment on above: Performed By: #### 2 [id number] #### [facility] [address] [place] [address] CO2 [Moles/Vol] 18 mmol/L Low 21-31 [facility] Comment on above: Performed By: #### 2 [id number] #### [facility] [address] [place] [address] Creatinine [Mass/Vol] 0.6 mg/dL Normal 0.5-1.3 [facility] Comment on above: Performed By: #### 2 [id number] #### [facility] [address] [place] [address] Glucose [Mass/Vol] 232 mg/dL High 55-199 [facility] Comment on above: Performed By: #### 2 [id number] #### [facility] [address] [place] [address] Potassium [Moles/Vol] 4.2 mmol/L Normal 3.5-5.3 [facility] Comment on above: Performed By: #### 2 [id number] #### [facility] [address] [place] [address] Sodium [Moles/Vol] 135 mmol/L Normal 135-145 [facility] Comment on above: Performed By: #### 2 [id number] #### [facility] [address] [place] [address] Urea nitrogen [Mass/Vol] 14 mg/dL Normal 5-21 [facility] Comment on above: Performed By: #### 2 [id number] #### [facility] [address] [place] [address] Urea nitrogen/Creatinine [Mass ratio] 23 No Units High 10-20 [facility] Comment on above: Performed By: #### 2 [id number] #### [facility] [address] [place] [address] CBC w/ Auto Diffon 4 Basophils/100 WBC (Bld) 0.4 % Normal 0.0-2.0 [facility] Comment on above: Performed By: #### 2 [id number] #### [facility] [address] [place] [address] Basophils/Leukocytes Auto (Bld) [Pure # fraction] 0.1 E9/L Normal 0.0-0.2 [facility] Comment on above: Performed By: #### 2 [id number] #### [facility] [address] [place] [address] Eosinophils (Bld) [#/Vol] 0.0 E9/L Normal 0.0-0.5 [facility] Comment on above: Performed By: #### 2 [id number] #### [facility] [address] [place] [address] Eosinophils/100 WBC (Bld) 0.2 % Normal 0.0-8.0 [facility] Comment on above: Performed By: #### 2 [id number] #### [facility] [address] [place] [address] Erythrocyte distribution width (RBC) [Ratio] 15.9 % High 10.9-14.2 [facility] Comment on above: Performed By: #### 2 [id number] #### [facility] [address] [place] [address] Hematocrit (Bld) [Volume fraction] 42.7 % Normal 37.7-49.0 [facility] Comment on above: Performed By: #### 2 [id number] #### [facility] [address] [place] [address] Hemoglobin (Bld) [Mass/Vol] 14.8 g/dL Normal 13.5-17.5 [facility] Comment on above: Performed By: #### 2 [id number] #### [facility] [address] [place] [address] Lymphocytes (Bld) [#/Vol] 1.2 E9/L Normal 1.0-4.0 [facility] Comment on above: Performed By: #### 2 [id number] #### [facility] [address] [place] [address] Lymphocytes/100 WBC (Bld) 8.8 % Low 14.0-50.0 [facility] Comment on above: Performed By: #### 2 [id number] #### [facility] [address] [place] [address] MCH (RBC) [Entitic mass] 29.1 pg Normal 27.0-34.0 [facility] Comment on above: Performed By: #### 2 [id number] #### [facility] [address] [place] [address] MCHC (RBC) [Mass/Vol] 34.6 g/dL Normal 31.4-36.0 [facility] Comment on above: Performed By: #### 2 728100 #### [facility] [address] [place] [address] MCV (RBC) [Entitic vol] 84.0 fL Normal 80.0-100.0 [facility] Comment on above: Performed By: #### 2 476609 #### [facility] [address] [place] [address] Monocytes (Bld) [#/Vol] 0.7 E9/L Normal 0.2-1.0 [facility] Comment on above: Performed By: #### 2 938135 #### [facility] [address] [place] [address] Neutrophils (Bld) [#/Vol] 11.9 E9/L High 2.0-7.5 [facility] Comment on above: Performed By: #### 2 [id number] #### [facility] [address] [place] [address] Neutrophils/100 WBC (Bld) 85.8 % High 36.0-75.0 [facility] Comment on above: Performed By: #### 2 412104 #### [facility] [address] [place] [address] Platelet 314.0 E9/L Normal 150.0-500. 0 [facility] Comment on above: Performed By: #### 2 [id number] #### [facility] [address] [place] [address] Platelet mean volume (Bld) [Entitic vol] 7.1 fL Normal 6.4-10.8 [facility] Comment on above: Performed By: #### 2 [id number] #### [facility] [address] [place] [address] RBC (Bld) [#/Vol] 5.1 E12/L Normal 4.3-5.9 [facility] Comment on above: Performed By: #### 2 [id number] #### [facility] [address] [place] [address] WBC corrected for nucl RBC Auto (Bld) [#/Vol] 13.9 E9/L High 4.0-11.0 [facility] Comment on above: Performed By: #### 2 [id number] #### [facility] [address] [place] [address] CHEMISTRYOrdered By: SYSTEM SYSTEM on 03-14-2024 Albumin [...] 35.3 s Normal 25.1 - 36.5 second(s) [facility] Comment on above: Interpretive Data: Brittani crowley 15 days - 4 weeks 1 - [...] the same coagulation reagent and instrumentation as [facility]. Currently there are no coagulation studies available worldwide for children to 14 days, and no normal ranges. Heparin therapeutic range (represented by Anti-Factor Xa activity of 0.2 - 0.4 U/mL) corresponds to PTT of 56.6 - 109.0 sec. INR Coag (PPP) [Relative time] 0.91 {INR} Invalid Interpretation Code [facility] Comment on above: Interpretive Data: I NR results are specifically intended to assess patients stabilized on long-term Anticoagulation therapy suggested INR s Less Intensive Anticoagulation 2.0 3.0 Conventional Range 3.0 4.5 PT Coag (PPP) [Time] 10.2 s Normal 9.4 - 1 2.5 second(s) [facility] Comment on above: Interpretive Data: [...] the same coagulation reagent and instrumentation as [facility]. Currently there are no coagulation studies available [...] 300 Contrast amount in ml's: 100 Normal [facility] ED Clinical Summaryon 2023 ED Clinical Summary ED Clinical Summary [place] [id number] ED Clinical Summary Person Information Name: CHRISTIAN SHELBY [facility] [place] Age: 48 Years : 1975 Sex: Male Language: [place] Leone[place] PCP: JOAN CARRILLO CNP Marital Status: Phone: [phone] Visit Id: Visit Reason: Hernia; Abdominal pain; HERNIA IN LOWER STOMACH AREA Speciality: Acuity: 2 Enc Type: Inpatient Med Service: Emergency Arrival: 03/14/2024 17:37:38 Discharge: LOS: 000 05:51 Checkin: 03/14/2024 17:37:38 Checkout: 03/14/2024 23:28:55 Dispo Type: Admitted as IP to this [facility] EVENTS: Event Name Event Status Request Date/Time [...] 22:51:16 Patient Care Request 03/14/2024 22:51:16 ADDRESS: [address] [place] [phone] PHYS DOC NOTES: MEDICAL INFORMATION: Prescriptions Given: [...] Instructions: Follow up: DIAGNOSIS: 1:Ventral hernia Normal [facility] ED Note-Physicianon 03-14-20 ED Note-Physician ED [...] to his service for further management. Normal [facility] Comment on above: Result Comment: Elec tronically Signed By: Shaun Caceres DO\.br\Date and Time Signed: 03/14/24 21:22 EDT ED Patient Education Noteon 03-14-2024 ED Patient Education Note ED Patient Education Note Normal [facility] ED Patient Summaryon 024 ED Patient Summary ED Patient Summary [place] [id number] Patient Discharge Instructions Person Information Name: CHRISTIAN SHELBY Age: 48 Years Arrival Date: 03/14/2024 17:37:38 Discharge Diagnosis: 1:Ventral hernia Primary Care Physician: JOAN CARRILLO CNP Provider Information Primary Provider: Demarco Ferreira DO [employer] Operator:Baljit Moyer PA-C The exam and treatment you received in the Emergency Department were for an urgent problem and are not intended as complete care. It is important that you follow up with a doctor, nurse practitioner, or physician?s fast food sales assistant for ongoing care. If your symptoms [...] opioids can be used to help relieve vfqgdmbw-lu-widvmh pain and are often prescribed following a [...] be struggling with addiction, tell your health home care associate and ask for guidance or call [facility]?S National Helpline at 7-092-095-UQXQ. l Source: [place] Department of Health and Human Services/Center for Disease Control & Prevention [facility] Medications Given: Medicati (more content not included)... Normal [facility] Hep Func Panelon 03-14-2024 Albumin [Mass/Vol] 3.8 g/dL Normal 3.3-5.0 [facility] Comment on above: Performed By: #### 2 [id number] #### [facility] [address] [place] [address] Albumin/Globulin (S) [Mass conc ratio] 1.0 Low 1.1-2.2 [facility] Comment on above: Performed By: #### 2 [id number] #### [facility] [address] [place] [address] ALP [Catalytic activity/Vol] 71 Int._Unit/L Normal 21-98 [facility] Comment on above: Performed By: #### 2 [id number] #### [facility] [address] [place] [address] ALT No additional P-5'-P [Catalytic activity/Vol] 31 Int._Unit/L Normal 6-46 [facility] Comment on above: Performed By: #### 2 [id number] #### [facility] [address] [place] [address] AST [Catalytic activity/Vol] 19 Int._Unit/L Normal 5-43 [facility] Comment on above: Performed By: #### 2 [id number] #### [facility] [address] [place] [address] Bilirubin [Mass/Vol] 0.5 mg/dL Normal 0.0-1.1 [facility] Comment on above: Performed By: #### 2 605169 #### [facility] [address] [place] [address] Bilirubin.direct [Mass/Vol] 0.1 mg/dL Normal 0.0-0.4 [facility] Comment on above: Performed By: #### 2 [id number] #### [facility] [address] [place] [address] Bilirubin.indirect [Mass or moles/Vol] 0.4 mg/dL Normal 0.1-0.9 [facility] Comment on above: Performed By: #### 2 [id number] #### [facility] [address] [place] [address] Globulin (S) [Mass/Vol] 3.7 g/dL Normal 1.4-4.0 [facility] Comment on above: Performed By: #### 2 [id number] #### [facility] [address] [place] [address] Protein [Mass/Vol] 7.5 g/dL Normal 6.0-7.8 [facility] Comment on above: Performed By: #### 2 [id number] #### [facility] [address] [place] [address] Lactic Acidon 03-14-2024 Lactic Acid Lvl 1.2 mmol/L Normal 0.5-2.2 [facility] Comment on above: Performed By: #### 2 [id number] #### [facility] [address] [place] [address] Lipase Levelon 03-14-2024 Lipase [Catalytic activity/Vol] 10 U/L Low 13-58 [facility] Comment on above: Performed By: #### 2 [id number] #### [facility] [address] [place] [address] PT & PTTon 03-14-2024 aPTT Coag (PPP) [Time] 35.3 second(s) Normal 25.1-36.5 [facility] Comment on above: Result Comment: Para meter 15 days - 4 weeks 1 - 5 months 6 - 11 months 1 - 5 years 6 - 10 years 11 - 17 years PTT Mean: 35.4 (27.6-45.6) Mean: 33.5 (24.8-40.7) Mean: 32.4 (25.1-40.7) Mean: 31.6 (24.0-39.2) Mean: 31.6 (26.9-38.7) Mean: 31.0 (24.6-38.4) Pediatric Reference ranges were obtained from a study by kirsty Yepez prepared from 1437 samples obtained at 7 different centers using the same coagulation reagent and instrumentation as [facility]. Currently there are no coagulation studies available worldwide for children to 14 days, and no normal ranges. Heparin therapeutic range (represented by Anti-Factor Xa activity of 0.2 - 0.4 U/mL) corresponds to PTT of 56.6 - 109.0 sec. Performed By: #### 1 [id number] #### [facility] [address] [place] [address] INR Coag (PPP) [Relative time] 0.91 {INR} Invalid Interpretation Code [facility] Comment on above: Result Comment: INR results are specifically intended to assess patients stabilized on long-term Anticoagulation therapy suggested INR?s ?Less Intensive Anticoagulation? 2.0 ? 3.0 Conventional Range 3.0 ? 4.5 Performed By: #### 1 [id number] #### [facility] [address] [place] [address] PT Coag (PPP) [Time] 10.2 second(s) Normal 9.4-12.5 [facility] Comment on above: Result Comment: 15 d ays - 4 weeks 1 - 5 months 6 -11 months 1- 5 years 6-10 years 11 -17 years Mean: 11.2 (9.5-12.6) Mean: 11.0 (9.7-12.8) Mean: 11.0 (9.8-13.0) Mean: 11.3 (9.9-13.4) Mean: 11.7 (10.0-14.6) Mean: 11.8 (10.0 - 14.1) Pediatric Reference ranges were obtained from a study by kirsty Yepez prepared from 1437 samples obtained at 7 different centers using the same coagulation reagent and instrumentation as [facility]. Currently there are no coagulation studies available worldwide for children to 14 days, and no normal ranges. Performed By: #### 1 [id number] #### [facility] [address] [place] [address] eGFRon 03-14-2024 eGFR 119 mL/min/1.73 m2 Normal >=59 [facility] Comment on above: Order Comment: Order added by Discern Expert. Performed By: #### 1 [id number] #### [facility] [address] [place] [address] BMPon 03-05-2024 Anion gap [Moles/Vol] 12 mmol/L Normal 6-16 [facility] Comment on above: Performed By: #### 2 113210 #### [facility] [address] [place] [address] Calcium [Mass/Vol] 7.8 mg/dL Low 8.9-11.1 [facility] Comment on above: Performed By: #### 2 135445 #### [facility] [address] [place] [address] Chloride [Moles/Vol] 105 mmol/L Normal 101-111 [facility] Comment on above: Performed By: #### 2 [id number] #### [facility] [address] [place] [address] CO2 [Moles/Vol] 23 mmol/L Normal 21-31 [facility] Comment on above: Performed By: #### 2 115544 #### [facility] [address] [place] [address] Creatinine [Mass/Vol] 0.6 mg/dL Normal 0.5-1.3 [facility] Comment on above: Performed By: #### 2 [id number] #### [facility] [address] [place] [address] Glucose [Mass/Vol] 183 mg/dL Normal 55-199 [facility] Comment on above: Performed By: #### 2 [id number] #### [facility] [address] [place] [address] Potassium [Moles/Vol] 3.6 mmol/L Normal 3.5-5.3 [facility] Comment on above: Performed By: #### 2 207147 #### [facility] [address] [place] [id number] Sodium [Moles/Vol] 136 mmol/L Normal 135-145 [facility] Comment on above: Performed By: #### 2 [id number] #### [facility] [address] [place] [address] Urea nitrogen [Mass/Vol] 12 mg/dL Normal 5-21 [facility] Comment on above: Performed By: #### 2 [id number] #### [facility] [address] [place] [address] Urea nitrogen/Creatinine [Mass ratio] 20 No Units Normal 10-20 [facility] Comment on above: Performed By: #### 2 192627 #### [facility] [address] [place] [address] Bld Gas Venon 03-05-2024 Allens Test Not Applicable Normal [facility] Comment on above: Performed By: #### 1 [id number] #### [facility] [address] [place] [address] Drawn by lab Invalid Interpretation Code [facility] Comment on above: Performed By: #### 1 [id number] #### [facility] [address] [place] [address] Sample Site OTHER Normal [facility] Comment on above: Performed By: #### 1 [id number] #### [facility] [address] [place] [address] CBC w/ Auto Diffon 4 Basophils/100 WBC (Bld) 0.3 % Normal 0.0-2.0 [facility] Comment on above: Performed By: #### 2 [id number] #### [facility] [address] [place], [place] [id number] Basophils/Leukocytes Auto (Bld) [Pure # fraction] 0.0 E9/L Normal 0.0-0.2 [facility] Comment on above: Performed By: #### 2 [id number] #### [facility] [address] [place] [address] Eosinophils (Bld) [#/Vol] 0.1 E9/L Normal 0.0-0.5 [facility] Comment on above: Performed By: #### 2 138889 #### [facility] [address] [place] [address] Eosinophils/100 WBC (Bld) 1.1 % Normal 0.0-8.0 [facility] Comment on above: Performed By: #### 2 617746 #### [facility] [address] [place] [address] Erythrocyte distribution width (RBC) [Ratio] 16.2 % High 10.9-14.2 [facility] Comment on above: Performed By: #### 2 [id number] #### [facility] [address] [place] [address] Hematocrit (Bld) [Volume fraction] 40.9 % Normal 37.7-49.0 [facility] Comment on above: Performed By: #### 2 809026 #### [facility] [address] [place] [address] Hemoglobin (Bld) [Mass/Vol] 13.3 g/dL Low 13.5-17.5 [facility] Comment on above: Performed By: #### 2 850299 #### [facility] [address] [place] [address] Lymphocytes (Bld) [#/Vol] 2.6 E9/L Normal 1.0-4.0 [facility] Comment on above: Performed By: #### 2 590253 #### [facility] [address] [place] [address] Lymphocytes/100 WBC (Bld) 22.4 % Normal 14.0-50.0 [facility] Comment on above: Performed By: #### 2 619030 #### [facility] [address] [place] [address] MCH (RBC) [Entitic mass] 27.5 pg Normal 27.0-34.0 [facility] Comment on above: Performed By: #### 2 [id number] #### [facility] [address] [place] [address] MCHC (RBC) [Mass/Vol] 32.5 g/dL Normal 31.4-36.0 [facility] Comment on above: Performed By: #### 2 186815 #### [facility] [address] [place] [address] MCV (RBC) [Entitic vol] 84.5 fL Normal 80.0-100.0 [facility] [facility] Comment on above: Performed By: #### 2 [id number] #### [facility] [address] [place] [address] Monocytes (Bld) [#/Vol] 1.1 E9/L High 0.2-1.0 [facility] Comment on above: Performed By: #### 2 [id number] #### [facility] [address] [place] [address] Neutrophils (Bld) [#/Vol] 7.7 E9/L High 2.0-7.5 [facility] Comment on above: Performed By: #### 2 [id number] #### [facility] [address] [place] [address] Neutrophils/100 WBC (Bld) 66.8 % Normal 36.0-75.0 [facility] Comment on above: Performed By: #### 2 [id number] #### [facility] [address] [place] [address] Platelet mean volume (Bld) [Entitic vol] 7.1 fL Normal 6.4-10.8 [facility] Comment on above: Performed By: #### 2 [id number] #### [facility] [address] [place] [address] Platelets (Bld) [#/Vol] 296.0 E9/L Normal 150.0-500. 0 [facility] Comment on above: Performed By: #### 2 [id number] #### [facility] [address] [place] [address] RBC (Bld) [#/Vol] 4.8 E12/L Normal 4.3-5.9 [facility] Comment on above: Performed By: #### 2 [id number] #### [facility] [address] [place] [address] WBC corrected for nucl RBC Auto (Bld) [#/Vol] 11.5 E9/L High 4.0-11.0 [facility] Comment on above: Performed By: #### 2 [id number] #### [facility] [address] [place] [address] CHEMISTRYOrdered By: SYSTEM SYSTEM on 03-05-2024 Anion [...] 165 mg/dL High 55 - 99 mg/dL [facility] Subsection Comment on above: Result Comment: Isabelle adames RN/ POC Device SN [id number] 1 Invalid Interpretation Code [facility] Subsection POC User ID [id number] 1 Invalid Interpretation Code [facility] Subsection POC Username SIR DEMARCO CARR Invalid Interpretation Code [facility] Subsection Capillary Glucose POCon 02-08 Glucose [Mass/Vol] 165 mg/dL High 55-99 [facility] Comment on above: Result Comment: Isabelle adames RN/ Performed By: #### 2 [id number] #### [facility] [address] [place] [address] Discharge Note-Nursingon Discharge Note-Nursing Discharge Note-Nursing Pt provided discharge education. Pt denies any questions at this time. IV removed and pt transferred to patient pickup via wheelchair. Normal [facility] HEMATOLOGYOrdered By: SYSTEM SYSTEM on 03-05-2024 [...] 03-05-2024 Inpatient Clinical Summary Inpatient Clinical Summary [place] [id number] Clinical Summary Person Information: Name: CHRISTIAN SHELBY Age: 48 Years : 1975 Sex: Male PCP: JOAN CARRILLO CNP Marital Status: Phone: [phone] Race: White Ethnicity: Non- or Language: [place] Visit Id: Visit Reason: Abdominal pain; ABD PAIN Speciality: Acuity: Enc Type: Observation Med Service: Medical Arrival: 03/04/2024 13:47:44 Discharge: Dispo Type: Admitted as IP to this [facility] Address: [address] [place] [id number] Provider Notes: Diagnosis: Small bowel obstruction; Ventral [...] Physician: Follow up: With: Address: When: JOAN CARRILLO [address] [place], [place] [phone] Business (1) Within 7 to 10 days Comments: Call for followup appointment Call physician if symptoms worsen With: Address: When: trauma clinic [address] [place] [address] 3, second floor, [address] [place], [place] [id number] , only if needed Comments: Please call to make follow up appointment if you have questions or concerns. Patient Education Information: Hernia, Adult Normal [facility] Inpatient Patient Summaryon 03-05-2024 Inpatient Patient Summary Inpatient Patient Summary CHRISTIAN SHELBY :1975 Visit Date:03/04/2024 Inpatient Discharge Instructions Your Care Team Admitting Physician - Esvin Hill MD Reason for Your Visit hernia Your Diagnosis [...] Appointments after Discharge Follow Up with JOAN CARRILLO When: Within 7 to 10 days Comments: Call for followup appointment Call physician if symptoms worsen Where: [address] [place] [address] [phone] Business (1) Follow Up with trauma clinic When: Only if needed Comments: Please call to make follow up appointment if you have questions or concerns. Where: [address] [place] [address] 3, second floor, [address] [place] [address]- [phone] Medications What How Much When Instructions Next [...] It may (more content not included)... Normal [facility] Inpatient Patient Summary Inpatient Patient Summary [place] [id number] Patient Discharge Instructions PERSON INFORMATION Name: CHRISTIAN SHELBY Date of : 1975 Current Date: 03/05/2024 10:00:00 PHYSICIANS Admitting Physician: Esvin Hill MD Primary Care Physician: JOAN CARRILLO CNP PCP Phone Number: [phone] Comment: Discharge Diagnosis: Small bowel obstruction; Ventral [...] None Follow up: With: Address: When: JOAN CARRILLO [address] [facility], [facility] [place] [phone] Business (1) Within 7 to 10 days Comments: Call for followup appointment Call physician if symptoms worsen With: Address: When: trauma clinic [address] [place] [address] 3, second floor, [address] [place], [place] [phone] , only if needed Comments: Please call [...] By Mouth every day. Pharmacy Information: Other: [facility] [place] [facility] Comment: PATIENT EDUCATION INFORMATION Instructions: Hernia, Adult [...] a lo (more content not included)... Normal [facility] Interdisciplinary Note - Alexander e Manageron 03-05-2024 Interdisciplinary Note - C D Reactor Operator Interdisciplinary Note - C D Reactor Operator CRM to room to discuss DC planning. [...] from Trauma. Patient was provided CRM contact, white board updated. CRM following. Patient has no DC needs for DME, HH or PM. Normal [facility] Comment on above: Result Comment: Elec tronically Signed By: Bhavna [email or web address]\.[email or web address]\Date and Time Signed: 03/05/24 09:00 EDT Magnesiumon 03-05-2024 Magnesium [Mass/Vol] 1.8 mg/dL Normal 1.3-2.4 [facility] Comment on above: Performed By: #### 2 [id number] #### [facility] [address] [place] [address] UA with Cult Rflxon 03-05-20 24 Bilirubin Ql (U) Negative Normal Negative [facility] Comment on above: Performed By: #### 4 [id number] #### [facility] [address] [place] [address] Clarity (U) Clear Normal Clear [facility] Comment on above: Performed By: #### 4 [id number] #### [facility] [address] [place] [address] Color (U) Light-Yellow Normal Yellow [facility] Comment on above: Result Comment: Micr oscopic readings are only performed on those samples that meet specific criteria set forth by [facility]. Performed By: #### 4 [id number] #### [facility] [address] [place] [address] Epithelial cells.squamous Auto (Urine sed) [#/Area] 0-2 Invalid Interpretation Code [facility] Comment on above: Performed By: #### 4 [id number] #### [facility] [address] [place] [address] Glucose Ql (U) 4+ mg/dL Abnormal Negative [facility] Comment on above: Performed By: #### 4 [id number] #### [facility] [address] [place] [address] Hemoglobin Auto test strip (U) [Mass/Vol] Negative Normal Negative [facility] Comment on above: Performed By: #### 4 [id number] #### [facility] [address] [place] [address] Ketones Auto test strip Ql (U) 2+ mg/dL Abnormal Negative [facility] Comment on above: Performed By: #### 4 [id number] #### [facility] [address] [place] [address] Leukocyte esterase Auto test strip Ql (U) 25 Flora/uL Normal Negative [facility] Comment on above: Performed By: #### 4 [id number] #### [facility] [address] [place] [address] Mucus Auto Ql (U) Trace Normal Negative [facility] Comment on above: Performed By: #### 4 [id number] #### [facility] [address] [place] [address] Nitrite Auto test strip Ql (U) Negative Normal Negative [facility] Comment on above: Performed By: #### 4 [id number] #### [facility] [address] [place] [address] pH (U) 5.5 [pH] Invalid Interpretation Code 5.0-9.0 [facility] Comment on above: Performed By: #### 4 [id number] #### [facility] [address] [place] [address] Protein Ql (U) Negative Normal Negative [facility] Comment on above: Performed By: #### 4 [id number] #### [facility] [address] [place] [address] RBC Ql (U) 0-3 Normal 0-3 [facility] Comment on above: Performed By: #### 4 [id number] #### [facility] [address] [place] [address] Specific gravity (U) [Rel density] 1.026 Invalid Interpretation Code 1.005-1.03 0 [facility] Comment on above: Performed By: #### 4 [id number] #### [facility] [address] [place] [address] Urobilinogen (U) [Mass/Vol] Negative Normal Negative [facility] Comment on above: Performed By: #### 4 [id number] #### [facility] [address] [place] [address] WBC Auto (Urine sed) [#/Area] 0-5 Normal 0-5 [facility] Comment on above: Performed By: #### 4 [id number] #### [facility] [address] [place] [address] URINALYSISOrdered By: SYSTEM SYSTEM on 03-05-2024 Bilirubin Ql (U) Negative Normal Negativemg /dL [facility] UA Auto SS Clarity (U) Clear (03/05/24 7:36 AM) Normal Clear [facility] UA Auto SS Color (U) Light-Yellow 1 (03/05/24 7:36 AM) Normal Yellow [facility] UA Auto SS Comment on above: Interpretive Data: M icroscopic readings are only performed on those samples that meet specific criteria set forth by [facility]. Epithelial cells.squamous Auto (Urine sed) [#/Area] 0-2 graded/HPF Invalid Interpretation Code [facility] UA Auto SS Glucose Ql (U) 4+ [...] (U) Trace graded/LPF Normal Negati vegr aded/LPF [facility] UA Auto SS Nitrite Auto test strip Ql (U) Negative Normal Negativemg /dL [facility] UA Auto SS pH (U) 5.5 *NA* (03/05/24 7:36 AM) Invalid Interpretation Code 5.0 - 9.0 [facility] UA Auto SS Protein Ql (U) Negative Normal Negativemg /dL [facility] UA Auto SS RBC Ql (U) 0-3 graded/HPF Normal 0-3graded/ HPF [facility] UA Auto SS Specific gravity (U) [Rel density] 1.026 *NA* (03/05/24 7:36 AM) Invalid Interpretation Code 1.005 - 1.030 [facility] UA Auto SS Urobilinogen (U) [Mass/Vol] Negative Normal Negativemg /dL [facility] UA Auto SS WBC Auto (Urine sed) [#/Area] 0-5 graded/HPF Normal 0-5graded/ HPF [facility] UA Auto SS URINALYSISOrdered By: Ruiz latif on 03-05-2024 UA Spec Desc Clean Catch (03/05/24 7:36 AM) Normal [facility] UA Auto SS Work Phone: eGFRon 03-05-2024 eGFR 119 mL/min/1.73 m2 Normal >=59 [facility] Comment on above: Order Comment: Order added by Discern Expert. Performed By: #### 1 [id number] #### [facility] [address] [place] [address] BMPon 03-04-2024 Anion gap [Moles/Vol] 16 mmol/L Normal 6-16 [facility] Comment on above: Performed By: #### 2 [id number] #### [facility] [address] [place] [address] Calcium [Mass/Vol] 8.0 mg/dL Low 8.9-11.1 [facility] Comment on above: Performed By: #### 2 [id number] #### [facility] [address] [place] [address] Chloride [Moles/Vol] 104 mmol/L Normal 101-111 [facility] Comment on above: Performed By: #### 2 [id number] #### [facility] [address] [place] [address] CO2 [Moles/Vol] 21 mmol/L Normal 21-31 [facility] Comment on above: Performed By: #### 2 [id number] #### [facility] [address] [place] [address] Creatinine [Mass/Vol] 0.7 mg/dL Normal 0.5-1.3 [facility] Comment on above: Performed By: #### 2 [id number] #### [facility] [address] [place] [address] Glucose [Mass/Vol] 194 mg/dL Normal 55-199 [facility] Comment on above: Performed By: #### 2 [id number] #### [facility] [address] [place] [address] Potassium [Moles/Vol] 3.9 mmol/L Normal 3.5-5.3 [facility] Comment on above: Performed By: #### 2 [id number] #### [facility] [address] [place] [address] Sodium [Moles/Vol] 137 mmol/L Normal 135-145 [facility] Comment on above: Performed By: #### 2 [id number] #### [facility] [address] [place] [address] Urea nitrogen [Mass/Vol] 12 mg/dL Normal 5-21 [facility] Comment on above: Performed By: #### 2 [id number] #### [facility] [address] [place] [address] Urea nitrogen/Creatinine [Mass ratio] 17 No Units Normal 10-20 [facility] Comment on above: Performed By: #### 2 [id number] #### [facility] [address] [place] [address] Anion gap [Moles/Vol] 21 mmol/L High 6-16 [facility] Comment on above: Performed By: #### 2 [id number] #### [facility] [address] [place] [address] Calcium [Mass/Vol] 8.8 mg/dL Low 8.9-11.1 [facility] Comment on above: Performed By: #### 2 [id number] #### [facility] [address] [place] [address] Chloride [Moles/Vol] 100 mmol/L Low 101-111 [facility] Comment on above: Performed By: #### 2 [id number] #### [facility] [address] [place] [address] CO2 [Moles/Vol] 16 mmol/L Low 21-31 [facility] Comment on above: Performed By: #### 2 [id number] #### [facility] [address] [place] [address] Creatinine [Mass/Vol] 0.7 mg/dL Normal 0.5-1.3 [facility] Comment on above: Performed By: #### 2 [id number] #### [facility] [address] [place] [address] Glucose [Mass/Vol] 272 mg/dL High 55-199 [facility] Comment on above: Performed By: #### 2 [id number] #### [facility] [address] [place] [address] Potassium [Moles/Vol] 4.3 mmol/L Normal 3.5-5.3 [facility] Comment on above: Performed By: #### 2 736351 #### [facility] [address] [place] [address] Sodium [Moles/Vol] 133 mmol/L Low 135-145 [facility] Comment on above: Performed By: #### 2 [id number] #### [facility] [address] [place] [address] Urea nitrogen [Mass/Vol] 12 mg/dL Normal 5-21 [facility] Comment on above: Performed By: #### 2 [id number] #### [facility] [address] [place] [address] Urea nitrogen/Creatinine [Mass ratio] 17 No Units Normal 10-20 [facility] Comment on above: Performed By: #### 2 [id number] #### [facility] [address] [place] [address] Bld Gas Venon 03-04-2024 FIO2 BG 21 Invalid Interpretation Code [facility] Comment on above: Performed By: #### 1 [id number] #### [facility] [address] [place] [address] pCO2 Myron 36.7 mmHg Low 38.0-50.0 [facility] Comment on above: Performed By: #### 1 [id number] #### [facility] [address] [place] [address] pH Myron 7.370 Normal 7.320-7.43 0 [facility] Comment on above: Performed By: #### 1 [id number] #### [facility] [address] [place] [address] Sample Type Venous Draw Normal [facility] Comment on above: Performed By: #### 1 [id number] #### [facility] [address] [place] [address] CBC w/ Auto Diffon 4 Basophils/100 WBC (Bld) 0.3 % Normal 0.0-2.0 [facility] Comment on above: Performed By: #### 2 [id number] #### [facility] [address] [place] [address] Basophils/Leukocytes Auto (Bld) [Pure # fraction] 0.1 E9/L Normal 0.0-0.2 [facility] Comment on above: Performed By: #### 2 [id number] #### [facility] [address] [place] [address] Eosinophils (Bld) [#/Vol] 0.0 E9/L Normal 0.0-0.5 [facility] Comment on above: Performed By: #### 2 [id number] #### [facility] [address] [place] [address] Eosinophils/100 WBC (Bld) 0.2 % Normal 0.0-8.0 [facility] Comment on above: Performed By: #### 2 [id number] #### [facility] [address] [place] [address] Erythrocyte distribution width (RBC) [Ratio] 15.9 % High 10.9-14.2 [facility] Comment on above: Performed By: #### 2 [id number] #### [facility] [address] [place] [address] Hematocrit (Bld) [Volume fraction] 48.0 % Normal 37.7-49.0 [facility] Comment on above: Performed By: #### 2 [id number] #### [facility] [address] [place] [address] Hemoglobin (Bld) [Mass/Vol] 15.8 g/dL Normal 13.5-17.5 [facility] Comment on above: Performed By: #### 2 [id number] #### [facility] [address] [place] [address] Lymphocytes (Bld) [#/Vol] 1.2 E9/L Normal 1.0-4.0 [facility] Comment on above: Performed By: #### 2 [id number] #### [facility] [address] [place] [address] Lymphocytes/100 WBC (Bld) 7.3 % Low 14.0-50.0 [facility] Comment on above: Performed By: #### 2 [id number] #### [facility] [address] [place] [address] MCH (RBC) [Entitic mass] 27.8 pg Normal 27.0-34.0 [facility] Comment on above: Performed By: #### 2 [id number] #### [facility] [address] [place] [address] MCHC (RBC) [Mass/Vol] 32.9 g/dL Normal 31.4-36.0 [facility] Comment on above: Performed By: #### 2 [id number] #### [facility] [address] [place] [address] MCV (RBC) [Entitic vol] 84.5 fL Normal 80.0-100.0 [facility] Comment on above: Performed By: #### 2 [id number] #### [facility] [address] [place] [address] Monocytes (Bld) [#/Vol] 0.6 E9/L Normal 0.2-1.0 [facility] Comment on above: Performed By: #### 2 [id number] #### [facility] [address] [place] [address] Neutrophils (Bld) [#/Vol] 13.9 E9/L High 2.0-7.5 [facility] Comment on above: Performed By: #### 2 733151 #### [facility] [address] [place] [address] Neutrophils/100 WBC (Bld) 88.3 % High 36.0-75.0 [facility] Comment on above: Performed By: #### 2 669315 #### [facility] [address] [place] [address] Platelet mean volume (Bld) [Entitic vol] 7.2 fL Normal 6.4-10.8 [facility] Comment on above: Performed By: #### 2 [id number] #### [facility] [address] [place] [address] Platelets (Bld) [#/Vol] 313.0 E9/L Normal 150.0-500. 0 [facility] Comment on above: Performed By: #### 2 [id number] #### [facility] [address] [place] [address] RBC (Bld) [#/Vol] 5.7 E12/L Normal 4.3-5.9 [facility] Comment on above: Performed By: #### 2 [id number] #### [facility] [address] [place] [address] WBC corrected for nucl RBC Auto (Bld) [#/Vol] 15.8 E9/L High 4.0-11.0 [facility] Comment on above: Performed By: #### 2 [id number] #### [facility] [address] [place] [address] CHEMISTRYOrdered By: Lab ROP User on 03-04-2024 Glucose [Mass/Vol] 169 mg/dL High 55 - 99 mg/dL [facility] P[facility] Subsection POC Device SN [id number] 1 Invalid Interpretation Code [facility] Subsection POC User ID [id number] 1 Invalid Interpretation Code [facility] P[facility] Subsection POC Username SIR DEMARCO CARR Invalid Interpretation Code [facility] Subsection Glucose [Mass/Vol] 191 mg/dL High 55 - 99 mg/dL [facility] Subsection Comment on above: Result Comment: Isabelle adames RN/MD POC Device SN [id number] 1 Invalid Interpretation Code [facility] P[facility] Subsection POC User ID [id number] 1 Invalid Interpretation Code [facility] P[facility] Subsection POC Username TIM WARE Invalid Interpretation Code [facility] P[facility] Subsection CHEMISTRYOrdered By: SYSTEM SYSTEM on [...] 300 Contrast amount in ml's: 100 Normal [facility] Capillary Glucose POCon 02-08 Glucose [Mass/Vol] 169 mg/dL High 55-99 [facility] Comment on above: Performed By: #### 2 [id number] #### [facility] [address] [place] [address] Glucose [Mass/Vol] 191 mg/dL High 55-99 [facility] Comment on above: Result Comment: Isabelle adames RN/ Performed By: #### 2 [id number] #### [facility] Laboratory [address] [place] [address] Consent for Treatmenton 02-08 Consent for Treatment [id number] Normal [facility] ED Clinical Summaryon 2023 ED Clinical Summary (Inserted Image. Angella ble to display) [address] [address] ED Clinical Summary Person Information Name: CHRISTIAN SHELBY Dee/[facility] Age: 48 Years : 1975 Sex: Male Language: Sierra Leonean PCP: JOAN CARRILLO CNP Marital Status: Phone: [phone] Visit Id: Visit Reason: Abdominal pain; ABD PAIN Speciality: Acuity: 2 Enc Type: Emergency Med Service: Emergency Arrival: 03/04/2024 13:47:44 Discharge: LOS: 000 04:16 Checkin: 03/04/2024 13:47:44 Checkout: 03/04/2024 18:03:38 Dispo Type: Admitted as IP to this [facility] EVENTS: Event Name Event Status Request Date/Time [...] 03/04/2024 18:03:38 03/04/2024 18:03:38 03/04/2024 18:03:38 ADDRESS: [address] [place] [id number] PHYS DOC NOTES: MEDICAL INFORMATION: Prescriptions Given: [...] DIAGNOSIS: Small bowel obstruction; Ventral hernia Normal [facility] ED Note-Physicianon 03-04-20 ED Note-Physician Basic [...] and Complexity of Problems Differential Diagnosis: [] [facility] Data External documents reviewed: [] My [...] even further, with Leandra Wallace of the [facility] trauma surgery team coming down [...] Stable Dis (more content not included)... Normal [facility] Comment on above: Result Comment: Elec tronically Signed By: Ruiz Uriarte PA-C\.br\Date and Time Signed: 03/04/24 18:36 EDT\.br\Electronically Co-Signed By: Bryce Gibson M.D.\.br\Date and Time Co-Signed: 03/04/24 18:44 EDT ED Patient Education Noteon 03-04-2024 ED Patient Education Note Normal [facility] ED Patient Summaryon 024 ED Patient Summary (Inserted Image. Angella ble to display) [place] [id number] Patient Discharge Instructions Person Information Name: CHRISTIAN SHELBY Age: 48 Years Arrival Date: 03/04/2024 13:47:44 Discharge Diagnosis: Small bowel obstruction; Ventral hernia Primary Care Physician: JOAN CARRILLO CNP Provider Information Primary Provider: Bryce Gibson M.D. Advanced [employer] Forming Machine Operator:None The exam and treatment you received in the Emergency Department were for an urgent problem and are not intended as complete care. It is important that you follow up with a doctor, nurse practitioner, or physician?s fast food sales assistant for ongoing care. If your symptoms [...] opioids can be used to help relieve yymqxuik-gw-gplegl pain and are often prescribed following a [...] be struggling with addiction, tell your health home care associate and ask for guidance or call [facility] National Helpline at 1-729-587-RKKV. f Source: US Department of Health and Human Services/Center for Disease Control & Prevention [facility] Medications Given: Medication Dose R (more content not included)... Normal [facility] Blood GasesOrdered By: Faisal Mcgarry on 03-04-2024 Allens Test Not Applicable (03/04/24 5:41 PM) Normal [facility] Resp Auto SS Drawn by lab Invalid Interpretation Code [facility] Resp Auto SS Sample Site OTHER (03/04/24 5:41 PM) Normal [facility] Resp Auto SS FT Blood GasesOrdered By: Maria Eugenia Reeves on 03-04-2024 FIO2 BG 21 1 Invalid Interpretation Code [facility] Resp Auto SS pCO2 Myron 36.7 mm[Hg] Low 38.0 - 50.0 mmHg [facility] Resp Auto SS pH (Bld) 7.370 [pH] Normal 7.320 - 7.430 [facility] Resp Auto SS Sample Type Venous Draw (03/04/24 5:41 PM) Normal [facility] Resp Auto SS HEMATOLOGYOrdered By: SYSTEM SYSTEM [...] 03-04-2024 Albumin [Mass/Vol] 4.2 g/dL Normal 3.3-5.0 [facility] Comment on above: Performed By: #### 2 [id number] #### [facility] [address] [place] [address] Albumin/Globulin (S) [Mass conc ratio] 1.1 Normal 1.1-2.2 [facility] Comment on above: Performed By: #### 2 [id number] #### [facility] [address] [place] [address] ALP [Catalytic activity/Vol] 77 Int._Unit/L Normal 21-98 [facility] Comment on above: Performed By: #### 2 [id number] #### [facility] [address] [place] [address] ALT No additional P-5'-P [Catalytic activity/Vol] 30 Int._Unit/L Normal 6-46 [facility] Comment on above: Performed By: #### 2 [id number] #### [facility] [address] [place] [address] AST [Catalytic activity/Vol] 16 Int._Unit/L Normal 5-43 [facility] Comment on above: Performed By: #### 2 147450 #### [facility] [address] [place] [address] Bilirubin [Mass/Vol] 0.5 mg/dL Normal 0.0-1.1 [facility] Comment on above: Performed By: #### 2 762522 #### [facility] [address] [place] [address] Bilirubin.direct [Mass/Vol] 0.1 mg/dL Normal 0.0-0.4 [facility] Comment on above: Performed By: #### 2 058923 #### [facility] [address] [place] [address] Bilirubin.indirect [Mass or moles/Vol] 0.4 mg/dL Normal 0.1-0.9 [facility] Comment on above: Performed By: #### 2 871792 #### [facility] [address] [place] [address] Globulin (S) [Mass/Vol] 4.0 g/dL Normal 1.4-4.0 [facility] Comment on above: Performed By: #### 2 748941 #### [facility] [address] [place] [address] Protein [Mass/Vol] 8.2 g/dL High 6.0-7.8 [facility] Comment on above: Performed By: #### 2 799676 #### [facility] [address] [place] [address] Lactic Acidon 03-04-2024 Lactic Acid Lvl 1.3 mmol/L Normal 0.5-2.2 [facility] Comment on above: Performed By: #### 2 804989 #### [facility] [address] [place] [address] Lipase Levelon 03-04-2024 Lipase [Catalytic activity/Vol] 9 U/L Low 13-58 [facility] Comment on above: Performed By: #### 2 698666 #### [facility] [address] [place] [address] UA with Cult Rflxon 03-04-20 24 Type of Urine collection method Clean Catch Normal [facility] Comment on above: Performed By: #### 4 [id number] #### [facility] [address] [place] [address] eGFRon 03-04-2024 eGFR 113 mL/min/1.73 m2 Normal >=59 [facility] Comment on above: Order Comment: Order added by Discern Expert. Performed By: #### 1 [id number] #### [facility] [address] [place] [address] eGFR 113 mL/min/1.73 m2 Normal >=59 [facility] Comment on above: Order Comment: Order added by Discern Expert. Performed By: #### 1 [id number] #### [facility] [address] [place] [address] Inpatient Clinical Summaryon 08-23-2023 Inpatient Clinical Summary [address] [address] Clinical Summary Person Information: Name: CHRISTIAN SHELBY Age: 47 Years : 1975 Sex: Male PCP: Baljit Bryant DO Marital Status: Phone: [phone] Race: White Ethnicity: Non- or Language: Sierra Leonean Visit Id: Visit Reason: Nausea; Abdominal pain; HERNIA Speciality: Acuity: Enc Type: Observation Med Service: Medical Arrival: 08/13/2023 18:32:38 Discharge: 08/14/2023 14:02:02 Dispo Type: Home (Routine DC) Address: [address] [place] [phone] Provider Notes: Diagnosis: 1:Abdominal hernia Problems Active [...] Referring Physician: Follow up: With: Address: When: Baljit Bryant [address] [place] [address] Business (1) With: Address: When: trauma clinic [address] [place] [address] 3, second floor, [address] [place] [address] , only if needed Comments: Please call to make follow up appointment if you have questions or concerns. Our office has placed a referral to the bariatric clinic at [facility], if you do not hear from [facility] please contact this office and we can help facilitate scheduling an appointment. Patient Education Information: Hernia, Adult Normal [facility] Patient Education - Texton 1 10-24-2022 Patient [...] keep your urine pale yellow. ? Take exze-fsq-pqnozaz or prescription medicines. ? Eat foods that [...] any changes or new symptoms. ? Take pehw-phx-klwkoax and prescription medicines only as told by [...] Feels hard (more content not included)... Normal [facility] Discharge Instructionson Discharge Instructions [id number] Normal [facility] Auto Diffon 08-14-2023 Basophils/100 WBC (Bld) 0.2 % Normal 0.0-2.0 [facility] Comment on above: Order Comment: Order Added by Discern Expert. Performed By: #### 1 [id number], 7588827, 5379540, 1232887 ####[facility] [address] [place] [address] Basophils/Leukocytes Auto (Bld) [Pure # fraction] 0.0 E9/L Normal 0.0-0.2 [facility] Comment on above: Order Comment: Order Added by Discern Expert. Performed By: #### 1 1172472, 8075220, 1245423, 1110772 ####[facility] [address] [place] [address] Eosinophils/100 WBC (Bld) 0.2 % Normal 0.0-8.0 [facility] Comment on above: Order Comment: Order Added by Discern Expert. Performed By: #### 1 9527278, 2634325, 2117874, 4787377 ####[facility] [address] [place] [address] Eosinophils/Leukocyt es Auto (Bld) [Pure # fraction] 0.0 E9/L Normal 0.0-0.5 [facility] Comment on above: Order Comment: Order Added by Discern Expert. Performed By: #### 1 3893552, 6323792, 3856710, 2242056 ####[address] [address] Lymphocytes/100 WBC (Bld) 13.3 % Low 14.0-50.0 [facility] Comment on above: Order Comment: Order Added by Discern Expert. Performed By: #### 1 2467819, 3080845, 0163973, 5303540 ####[address] [address] Lymphocytes/Leukocyt es Auto (Bld) [Pure # fraction] 1.8 E9/L Normal 1.0-4.0 [facility] Comment on above: Order Comment: Order Added by Deana Expert. Performed By: #### 1 1991930, 5502430, 2228883, 5006905 ####[address] [address] Monocytes/100 WBC (Bld) 10.0 % Normal 4.0-14.0 [facility] Comment on above: Order Comment: Order Added by Deana Expert. Performed By: #### 1 7561285, 2741091, 6592877, 3425051 ####[address] [address] Monocytes/Leukocytes Auto (Bld) [Pure # fraction] 1.3 E9/L High 0.2-1.0 [facility] Comment on above: Order Comment: Order Added by Deana Expert. Performed By: #### 1 5739616, 9502908, 2227269, 5431882 ####[address] [address] Neutrophils/100 WBC (Bld) 76.3 % High 36.0-75.0 [facility] Comment on above: Order Comment: Order Added by Deana Expert. Performed By: #### 1 2139660, 7788672, 7585316, 9516745 ####[facility] [address] [place] [address] Neutrophils/Leukocyt es Auto (Bld) [Pure # fraction] 10.2 E9/L High 2.0-7.5 [facility] Comment on above: Order Comment: Order Added by Discern Expert. Performed By: #### 1 0984489, 2417195, 5992682, 0400352 ####[facility] [address] [place] [address] BMPon 08-14-2023 Anion gap [Moles/Vol] 10 mmol/L Normal 6-16 [facility] Comment on above: Performed By: #### 1 0782666, 6649970, 3637786, 5102013 ####[facility] [address] [place] [address] Calcium [Mass/Vol] 8.2 mg/dL Low 8.9-11.1 [facility] Comment on above: Performed By: #### 1 0761885, 7423185, 0344986, 4359136 ####[facility] [address] [place] [address] Chloride [Moles/Vol] 105 mmol/L Normal 101-111 [facility] Comment on above: Performed By: #### 1 4568252, 9431707, 3111422, 6557645 ####[facility] [address] [place] [address] CO2 [Moles/Vol] 23 mmol/L Normal 21-31 [facility] Comment on above: Performed By: #### 1 9292165, 8265307, 5603962, 8618598 ####[facility] [address] [place] [address] Creatinine [Mass/Vol] 0.7 mg/dL Normal 0.5-1.3 [facility] Comment on above: Performed By: #### 1 1896230, 6761585, 0008821, 2042576 ####[facility] [address] [place] [address] Glucose [Mass/Vol] 266 mg/dL High 55-199 [facility] Comment on above: Result Comment: If t his glucose result represents a fasting glucose, interpretation should refer to the following reference range: 55-99 mg/dL Performed By: #### 1 6096739, 5350927, 2338619, 3089670 ####[facility] [address] [place] [address] Potassium [Moles/Vol] 3.4 mmol/L Low 3.5-5.3 [facility] Comment on above: Performed By: #### 1 5962325, 5610392, 3538435, 9178958 ####[facility] [address] [place] [address] Sodium [Moles/Vol] 135 mmol/L Normal 135-145 [facility] Comment on above: Performed By: #### 1 4787563, 4706451, 4844795, 3475710 ####[facility] [address] [place] [address] Urea nitrogen [Mass/Vol] 13 mg/dL Normal 5-21 [facility] Comment on above: Performed By: #### 1 3555841, 3161593, 8171309, 2315672 ####[facility] [address] [place] [address] Urea nitrogen/Creatinine [Mass ratio] 19 No Units Normal 10-20 [facility] Comment on above: Performed By: #### 1 8944546, 1674225, 8019037, 9569498 ####[facility] [address] [place] [address] CBC w/ Auto Diffon 3 Erythrocyte distribution width (RBC) [Ratio] 15.0 % High 10.9-14.2 [facility] Comment on above: Performed By: #### 1 1397377, 8429467, 0461383, 7356935 ####[facility] [address] [place] [address] Hematocrit (Bld) [Volume fraction] 41.0 % Normal 37.7-49.0 [facility] Comment on above: Performed By: #### 1 1228455, 0993722, 8269178, 9741008 ####[place] [address] [place] [address] Hemoglobin (Bld) [Mass/Vol] 13.7 g/dL Normal 13.5-17.5 [facility] Comment on above: Performed By: #### 1 9390107, 1749925, 2279359, 5167005 ####[place] [address] MCH (RBC) [Entitic mass] 28.0 pg Normal 27.0-34.0 [facility] Comment on above: Performed By: #### 1 2771389, 1584277, 7348860, 1507108 ####[place] [address] MCHC (RBC) [Mass/Vol] 33.4 g/dL Normal 31.4-36.0 [facility] Comment on above: Performed By: #### 1 4118149, 5537904, 9272881, 6516354 ####[place] [address] MCV (RBC) [Entitic vol] 83.8 fL Normal 80.0-100.0 [facility] Comment on above: Performed By: #### 1 6593019, 7738568, 6747255, 2743967 ####[address] [address] Platelet mean volume (Bld) [Entitic vol] 7.2 fL Normal 6.4-10.8 [facility] Comment on above: Performed By: #### 1 0414403, 4436273, 4446272, 7848864 ####[address] [address] Platelets (Bld) [#/Vol] 289.0 E9/L Normal 150.0-500. 0 [facility] Comment on above: Performed By: #### 1 8958192, 2622910, 4889333, 3237033 ####[place] [address] RBC (Bld) [#/Vol] 4.9 E12/L Normal 4.3-5.9 [facility] Comment on above: Performed By: #### 1 5177689, 0538760, 6784596, 6524017 ####[facility] [address] [place] [address] WBC corrected for nucl RBC Auto (Bld) [#/Vol] 13.3 E9/L High 4.0-11.0 [facility] Comment on above: Performed By: #### 1 0010521, 2360509, 6653305, 6477383 ####[facility] [address] [place] [address] CT Abdomen/Pelvis w/ Contras ton 08-14-2023 CT [...] 17 cm. The hernia extends outside the tzxex-ub-dvnq is an incompletely imaged on the current [...] 300 Contrast amount in ml's: 100 Normal [facility] Capillary Glucose POCon 12-0 Glucose [Mass/Vol] 231 mg/dL High 55-99 [facility] Comment on above: Result Comment: Tisha didier Meter Performed By: #### 2 [id number] ####[facility] [address] [place] [address] Glucose [Mass/Vol] 231 mg/dL High 55-99 [facility] Comment on above: Result Comment: Tisha didier Meter Performed By: #### 2 [id number] ####[facility] [address] [place] [address] ED Clinical Summaryon 2022 ED Clinical Summary (Inserted Image. Angella ble to display) [address] [address] ED Clinical Summary Person Information Name: CHRISTIAN SHELBY Dee/[facility] Age: 47 Years : 1975 Sex: Male Language: Sierra Leonean PCP: Baljit Bryant DO Marital Status: Phone: [phone] Visit Id: Visit Reason: Nausea; Abdominal pain; [...] 00:27:35 Patient Care Request 08/14/2023 03:46:42 ADDRESS: [address] [place] [phone] [facility] NOTES: MEDICAL INFORMATION: Prescriptions Given: PATIENT EDUCATION INFORMATION: Instructions: Follow up: DIAGNOSIS: 1:Abdominal hernia Normal [facility] ED Patient Education Noteon 08-14-2023 ED Patient Education Note Normal [facility] ED Patient Summaryon 023 ED Patient Summary (Inserted Image. Angella ble to display) [address] [address] Patient Discharge Instructions Person Information Name: CHRISTIAN SHELBY Age: 47 Years Arrival Date: 08/13/2023 18:32:38 Discharge Diagnosis: 1:Abdominal hernia Primary Care Physician: Baljit Bryant DO Provider Information Primary Provider: Joshua Starr DO Advanced [employer] Machine Operator:Baljit Moyer PA-C The exam and treatment you received in the Emergency Department were for an urgent problem and are not intended as complete care. It is important that you follow up with a doctor, nurse practitioner, or physician?s fast food sales assistant for ongoing care. If your symptoms [...] opioids can be used to help relieve vcbvgfah-ul-faqkvc pain and are often prescribed following a [...] be struggling with addiction, tell your health home care associate and ask for guidance or call [employer]?S National Helpline at 2-599-321-XHNT. v Source: US Department of Health and Human Services/Center for Disease Control & Prevention [facility] Medications Given: Medication Dose Route S (more content not included)... Normal [facility] Inpatient Patient Summaryon 08-14-2023 Inpatient Patient [...] Diagnostic Test Results None Pharmacy Information Other: [facility] [place] [facility] [place] New Follow Up Appointments after Discharge Follow Up with trauma clinic When: Only if needed Comments: Please call to make follow up appointment if you have questions or concerns. Our office has placed a referral to the bariatric clinic at [facility], if you do not hear from [facility] please contact this office and we can help facilitate scheduling an appointment. Where: [address] [place] [address] 3, second floor, [address] [place] [address]- [phone] Medications What How Much When Instructions Next [...] 13.7 gm/dL (08/14/23 06:46:00) Creatinine: 0.7 mg/dL (08/14/23 06:46:00) Hct: 41 % (08/14/23 06:46:00) BUN/Creat Ratio: 19 (08/14/23 06:46:00) MCV: 83.8 fL (08/14/23 06:46:00) Sodium Lvl: 135 mmol/L (08/14/23 06:46:00) MCH: 28 pg (08/14/23 06:46:00) Potassium Lvl: 3.4 mmol/L Low (08/14/23 06:46:00) MCHC: 33.4 gm/dL (08/14/23 06:46:00) Chloride: 105 mmol/L (08/14/23 06:46:00) RDW: 15 % High (08/14/23 06:46:00) CO2: 23 mmol/L (08/14/23 06:46:00) Platelet: 289 E9/L (08/14/23 06:46:00) AGAP: 10 mEq/L (08/14/23 06:46:00) MPV: 7.2 fL (08/14/23 06:46:00) Calcium Lvl: 8.2 mg/dL Low (08/14/23 06:46:00) Allergies No Known Medication Allergies Problems Ongoing [...] the mu (more content not included)... Normal [facility] Insurance Correspondence Off iceon 08-14-2023 Insurance Correspondence Office [id number] Normal [facility] Insurance Correspondence Office [id number] Normal [facility] Lactic Acidon 08-14-2023 Lactate [Mass/Vol] 1.1 mmol/L Normal 0.5-2.2 [facility] Comment on above: Performed By: #### 2 363349 ####[facility] [address] [place] [address] eGFRon 08-14-2023 GFR/1.73 sq M.predicted among non-blacks MDRD (S/P/Bld) [Vol rate/Area] 114 mL/min/1.73 m2 Normal >=59 [facility] Comment on above: Order Comment: Order added by Discern Expert. Result Comment: [employer] kidney disease could be indicated at eGFR's of less than 60 mL/min/1.73m2. Kidney failure is indicated at less than 15 mL/min/1.73m2. Performed By: #### 1 3305013, 6031348, 0270263, 3145397 ####[place] [address] [place] [address] Auto Diffon 08-13-2023 Basophils/100 WBC (Bld) 0.1 % Normal 0.0-2.0 [facility] Comment on above: Order Comment: Order Added by Discern Expert. Performed By: #### 2 512246, 22406873, 1905390, 2340228, 22712408, 4998287, 7880591, 1252747 ####[address] [address] Basophils/Leukocytes Auto (Bld) [Pure # fraction] 0.0 E9/L Normal 0.0-0.2 [facility] Comment on above: Order Comment: Order Added by Discern Expert. Performed By: #### 2 348280, 74221697, 5790455, 5356954, 14317175, 8385670, 1288638, 5965441 ####[address] [address] Eosinophils/100 WBC (Bld) 0.1 % Normal 0.0-8.0 [facility] Comment on above: Order Comment: Order Added by Discern Expert. Performed By: #### 2 702168, 14653397, 9599254, 2363601, 22714182, 0750587, 9660746, 4945103 ####[address] [address] [place] [address] Eosinophils/Leukocyt es Auto (Bld) [Pure # fraction] 0.0 E9/L Normal 0.0-0.5 [facility] Comment on above: Order Comment: Order Added by Discern Expert. Performed By: #### 2 413020, [id number], 4621843, 4460420, 54025876, 2030761, 5289093, 8618214 ####[place] [address] [address] Lymphocytes/100 WBC (Bld) 10.7 % Low 14.0-50.0 [facility] Comment on above: Order Comment: Order Added by Discern Expert. Performed By: #### 2 614642, 99212918, 1038712, 5000668, 63906533, 1743272, 5888968, 9306169 ####[address] [address] Lymphocytes/Leukocyt es Auto (Bld) [Pure # fraction] 1.7 E9/L Normal 1.0-4.0 [facility] Comment on above: Order Comment: Order Added by Deana Expert. Performed By: #### 2 473739, 26964901, 2343301, 4949069, 81512336, 7707349, 3072916, 1336063 ####[address] [address] Monocytes/100 WBC (Bld) 7.5 % Normal 4.0-14.0 [facility] Comment on above: Order Comment: Order Added by Deana Expert. Performed By: #### 2 937517, 34216923, 3491901, 7794512, 82686830, 9947672, 5671595, 8206420 ####[address] [address] Monocytes/Leukocytes Auto (Bld) [Pure # fraction] 1.2 E9/L High 0.2-1.0 [facility] Comment on above: Order Comment: Order Added by Discern Expert. Performed By: #### 2 271191, 04403904, 1703088, 1037272, 85226962, 2031803, 9133364, 6773298 ####[address] [address] Neutrophils/100 WBC (Bld) 81.6 % High 36.0-75.0 [facility] Comment on above: Order Comment: Order Added by Deana Expert. Performed By: #### 2 092220, 32305444, 4194988, 5250818, 29209136, 1619226, 8947895, 6232815 ####[facility] [address] [place] [address] Neutrophils/Leukocyt es Auto (Bld) [Pure # fraction] 12.8 E9/L High 2.0-7.5 [facility] Comment on above: Order Comment: Order Added by Discern Expert. Performed By: #### 2 140402, 95925908, 5371900, 6699312, 34637532, 1540348, 3618046, 1531795 ####[facility] [address] [place] [address] BMPon 08-13-2023 Creatinine [Mass/Vol] 0.9 mg/dL Normal 0.5-1.3 [facility] Comment on above: Performed By: #### 2 493317, 06000450, 7327908, 7899430, 12590779, 6682204, 2144747, 3536631 ####[facility] [address] [place] [address] Urea nitrogen [Mass/Vol] 12 mg/dL Normal 5-21 [facility] Comment on above: Performed By: #### 2 872370, 59447161, 2283843, 4384267, 46129773, 6475656, 2961494, 6190035 ####[facility] [address] [place] [address] Urea nitrogen/Creatinine [Mass ratio] 13 No Units Normal 10-20 [facility] Comment on above: Performed By: #### 2 273152, 02715043, 4063262, 7039004, 06792036, 7663494, 6717401, 0373168 ####[facility] [address] [place] [address] Anion gap [Moles/Vol] 21 mmol/L High 6-16 [facility] Comment on above: Performed By: #### 2 307069, 15246465, 2979467, 2969183, 80066407, 3250887, 7495670, 1018074 ####[facility] [address] [place] [address] Calcium [Mass/Vol] 9.1 mg/dL Normal 8.9-11.1 [facility] Comment on above: Performed By: #### 2 371672, 77053732, 8018018, 4655318, 80544126, 3631007, 2105169, 6329723 ####[facility] [address] [place] [address] Chloride [Moles/Vol] 98 mmol/L Low 101-111 [facility] Comment on above: Performed By: #### 2 426048, 95321588, 9639689, 7299488, 46730833, 3036284, 5427978, 0856383 ####[facility] [address] [place] [address] CO2 [Moles/Vol] 17 mmol/L Low 21-31 [facility] Comment on above: Performed By: #### 2 183134, 74790971, 4675617, 3863009, 30292819, 7084646, 9510285, 2097192 ####[facility] [address] [place] [address] Glucose [Mass/Vol] 321 mg/dL High 55-199 [facility] Comment on above: Result Comment: If t his glucose result represents a fasting glucose, interpretation should refer to the following reference range: 55-99 mg/dL Performed By: #### 2 357713, 76586172, 6873892, 9532070, 70076616, 0044404, 3495246, 5432595 ####[facility] [address] [place] [address] Potassium [Moles/Vol] 3.9 mmol/L Normal 3.5-5.3 [facility] Comment on above: Performed By: #### 2 915237, 19282279, 6813975, 8603588, 19909416, 0858266, 9107487, 0298575 ####[facility] [address] [place] [address] Sodium [Moles/Vol] 132 mmol/L Low 135-145 [facility] Comment on above: Performed By: #### 2 640900, 63767520, 7258579, 8935813, 71351910, 6601235, 1548637, 9674001 ####[facility] [address] [place] [address] BOHBon 08-13-2023 Beta hydroxybutyrate [Moles/Vol] 2.78 mmol/L High 0.02-0.27 [facility] Comment on above: Performed By: #### 2 [id number] ####[facility] [address] [place] [address] Bld Gas Venon 08-13-2023 Allens Test Not Applicable Normal [facility] Comment on above: Performed By: #### 1 0093107 ####[facility] [address] [place] [address] Drawn by lab Invalid Interpretation Code [facility] Comment on above: Performed By: #### 1 0167543 ####[facility] [address] [place] [address] FIO2 BG 21 Invalid Interpretation Code [facility] Comment on above: Performed By: #### 1 3529353 ####[facility] [address] [place] [address] pCO2 Myron 31.3 mmHg Low 38.0-50.0 [facility] Comment on above: Performed By: #### 1 8082290 ####[facility] [address] [place] [address] pH Myron 7.434 High 7.320-7.43 0 [facility] Comment on above: Performed By: #### 1 4767872 ####[facility] [address] [place] [address] Sample Site OTHER Normal [facility] Comment on above: Performed By: #### 1 1218823 ####[facility] [address] [place] [address] Sample Type Venous Draw Normal [facility] Comment on above: Performed By: #### 1 9640547 ####[address] [place] [address] CBC w/ Auto Diffon 3 Erythrocyte distribution width (RBC) [Ratio] 15.2 % High 10.9-14.2 [facility] Comment on above: Performed By: #### 2 554552, 35248581, 9640738, 6631073, 84236980, 0466678, 7482185, 4391470 ####[address] [address] Hematocrit (Bld) [Volume fraction] 49.5 % High 37.7-49.0 [facility] Comment on above: Performed By: #### 2 278499, 53144316, 9708939, 7885014, 89822533, 9172611, 9256895, 0238282 ####[address] [address] Hemoglobin (Bld) [Mass/Vol] 15.8 g/dL Normal 13.5-17.5 [facility] Comment on above: Performed By: #### 2 738014, 75428944, 1630040, 3836516, 64976181, 0713298, 4693033, 1678363 ####[address] [address] MCH (RBC) [Entitic mass] 27.1 pg Normal 27.0-34.0 [facility] Comment on above: Performed By: #### 2 280403, 44433050, 6456114, 7403251, 72762176, 5078948, 0130234, 6650736 ####[address] [place] [address] MCHC (RBC) [Mass/Vol] 32.0 g/dL Normal 31.4-36.0 [facility] Comment on above: Performed By: #### 2 806678, 38148412, 9474202, 1107852, 78116876, 8475760, 2565758, 1614142 ####[address] [place] [address] MCV (RBC) [Entitic vol] 84.8 fL Normal 80.0-100.0 [facility] Comment on above: Performed By: #### 2 747164, 67275240, 7943211, 5672028, 04140181, 4803799, 5262113, 0728885 ####[address] Platelet mean volume (Bld) [Entitic vol] 7.5 fL Normal 6.4-10.8 [facility] Comment on above: Performed By: #### 2 791758, 92828937, 4839553, 3399178, 88355201, 4397445, 2875015, 6692988 ####[address] [address] Platelets (Bld) [#/Vol] 361.0 E9/L Normal 150.0-500. 0 [facility] Comment on above: Performed By: #### 2 167477, 29923189, 4586948, 8912923, 33662795, 5355152, 1771893, 3211593 ####[address] [address] RBC (Bld) [#/Vol] 5.8 E12/L Normal 4.3-5.9 [facility] Comment on above: Performed By: #### 2 653262, 99641507, 5757227, 6628910, 37044819, 5666471, 3854968, 5401266 ####[address] [address] WBC corrected for nucl RBC Auto (Bld) [#/Vol] 15.6 E9/L High 4.0-11.0 [facility] Comment on above: Performed By: #### 2 593484, 22328804, 4614740, 2499486, 70486704, 6014075, 8542554, 0861702 ####[address] [address] Capillary Glucose POCon Glucose [Mass/Vol] 277 mg/dL High 55-99 [facility] Comment on above: Result Comment: Tisha didier Meter Performed By: #### 2 83996755 ####[facility] [address] [place] [address] Consent for Treatmenton Consent for Treatment [id number] Normal [facility] ED Note-Physicianon 08-13-20 ED Note-Physician Patient [...] under her service for further monitoring. Normal [facility] Comment on above: Result Comment: Elec tronically Signed By: Shaun Caceres DO\.br\Date and Time Signed: 08/13/23 21:34 EST ED Note-Physician Basic Information No qualifying data available. Chief Complaint Pt. presents to the ed with lower abdominal pain from a known hernia that has gotten bigger saturday. pt. complaining of nausea. History of Present [...] Diagnostic Results No qualifying data available. Normal [facility] Comment on above: Result Comment: Elec tronically Signed By: Baljit Moyer PA-C\.br\Date and Time Signed: 08/13/23 19:17 EST\.br\Electronically Co-Signed By: Joshua Starr DO\.br\Date and Time Co-Signed: 08/13/23 20:38 EST Hep Func Panelon 08-13-2023 Albumin [Mass/Vol] 4.1 g/dL Normal 3.3-5.0 [facility] Comment on above: Performed By: #### 2 600072, 88880923, 6120098, 0040201, 47034855, 7161683, 5659058, 2959052 ####[facility] [address] [place] [address] Albumin/Globulin (S) [Mass conc ratio] 0.9 Low 1.1-2.2 [facility] Comment on above: Performed By: #### 2 253273, 14968123, 8566969, 1870251, 97397668, 4184977, 4592521, 3445466 ####[facility] [address] [place] [address] ALP [Catalytic activity/Vol] 73 Int._Unit/L Normal 21-98 [facility] Comment on above: Performed By: #### 2 172752, 87886169, 2700121, 5016303, 98545749, 7733295, 9617971, 3292149 ####[address] [address] ALT No additional P-5'-P [Catalytic activity/Vol] 36 Int._Unit/L Normal 6-46 [facility] Comment on above: Performed By: #### 2 175635, 81058144, 0302187, 2023810, 86832886, 4632154, 1231256, 6892032 ####[address] [address] AST [Catalytic activity/Vol] 28 Int._Unit/L Normal 5-43 [facility] Comment on above: Performed By: #### 2 632314, 67412805, 3101647, 5433709, 92776978, 9175194, 6519594, 2059491 ####[address] [address] Bilirubin [Mass/Vol] 0.7 mg/dL Normal 0.0-1.1 [facility] Comment on above: Performed By: #### 2 578784, 43418757, 9443540, 1145550, 94773156, 7364058, 0760242, 7207225 ####[address] [address] Bilirubin.direct [Mass/Vol] 0.1 mg/dL Normal 0.1-0.4 [facility] Comment on above: Performed By: #### 2 136158, 74206801, 9041059, 6368793, 92603417, 2256663, 2497530, 1345791 ####[facility] [address] [place] [address] Bilirubin.indirect [Mass or moles/Vol] 0.6 mg/dL Normal 0.1-0.9 [facility] Comment on above: Performed By: #### 2 271908, 96564490, 2679490, 4682225, 76122622, 7372042, 5346894, 3565643 ####[facility] [address] [place] [address] Globulin (S) [Mass/Vol] 4.6 g/dL High 1.4-4.0 [facility] Comment on above: Performed By: #### 2 043814, 22509043, 2893675, 3897050, 94556192, 1880692, 8285977, 8994100 ####[address] [place] [address] Protein [Mass/Vol] 8.7 g/dL High 6.0-7.8 [facility] Comment on above: Performed By: #### 2 606530, 60158624, 1471399, 9085583, 24591992, 3055867, 0866057, 6729096 ####[address] [place] [address] Lactic Acidon 08-13-2023 Lactate [Mass/Vol] 2.7 mmol/L High 0.5-2.2 [facility] Comment on above: Order Comment: Order added by EKS Rule. (FT_LACTIC_ACID_REFLEX) Adds reflex Lactic Acid 4 hours after initial if result is greater than or equal to 2.0. Performed By: #### 2 [address] ####[address] [address] Lactate [Mass/Vol] 3.2 mmol/L High 0.5-2.2 [facility] Comment on above: Performed By: #### 2 007406, 00930168, 0848060, 9033649, 69652284, 4406440, 0454660, 4004077 ####[facility] [address] [place] [address] Lipase Levelon 08-13-2023 Lipase [Catalytic activity/Vol] 26 U/L Normal 13-58 [facility] Comment on above: Performed By: #### 2 856228, 62787735, 3704783, 5857174, 23099057, 3141935, 2605364, 2662626 ####[facility] [address] [place] [address] PT & PTTon 08-13-2023 aPTT Coag (PPP) [Time] 31.3 second(s) Normal 25.1-36.5 [facility] Comment on above: Result Comment: Para [...] the same coagulation reagent and instrumentation as [facility]. Currently there are no coagulation studies available worldwide for children to 14 days, and no normal ranges. Heparin therapeutic range (represented by Anti-Factor Xa activity of 0.2 - 0.4 U/mL) corresponds to PTT of 56.6 - 109.0 sec. Performed By: #### 2 545466, 18532803, 1492736, 3944183, 55793781, 6201943, 4095717, 1828677 ####[facility] [address] [place] [address] INR Coag (PPP) [Relative time] 1.0 {INR} Invalid Interpretation Code [facility] Comment on above: Result Comment: INR results are specifically intended to assess patients stabilized on long-term Anticoagulation therapy suggested INR?s ?Less Intensive Anticoagulation? 2.0 ? 3.0 Conventional Range 3.0 ? 4.5 Performed By: #### 2 534427, 45969097, 6928821, 2720303, 81353628, 5356926, 3768455, 3293159 ####[facility] [address] [place] [address] PT Coag (PPP) [Time] 11.4 second(s) Normal 9.4-12.5 [facility] Comment on above: Result Comment: 15 [...] the same coagulation reagent and instrumentation as [facility]. Currently there are no coagulation studies available worldwide for children to 14 days, and no normal ranges. Performed By: #### 2 781453, 66827996, 3168033, 6107168, 23327561, 2485471, 5478489, 5303080 ####[facility] [address] [place] [address] RAD - Preliminary Cat Scan R eporton 08-13-2023 RAD - Preliminary Cat Scan Report [id number] Normal [facility] eGFRon 08-13-2023 GFR/1.73 sq M.predicted among non-blacks MDRD (S/P/Bld) [Vol rate/Area] 106 mL/min/1.73 m2 Normal >=59 [facility] Comment on above: Order Comment: Order added by Discern Expert. Result Comment: [employer] kidney disease could be indicated at eGFR's of less than 60 mL/min/1.73m2. Kidney failure is indicated at less than 15 mL/min/1.73m2. Performed By: #### 2 050487, 64646623, 6074953, 8875269, 74983265, 8293826, 0740551, 9469932 ####[facility] [address] [place] [address] CT CHEST W CONon 12-26-2022 CT CHEST [...] by: LAURA FISH Date: 2022-12-26 08:31 Normal [facility] CT ABD/PELV W CONon 11-28-[address] [...] visualized due to being outside of the wwzgg-kn-jrlp. 2. Hepatic steatosis and hepatomegaly. 3. Enlarged [...] by: DARIUSZ VICENTE Date: 2022-11-27 10:31 Normal [facility] GLYCOHEMOGLOBIN A1Con 2022 ADA RECOMMENDATION SEE BELOW Normal [facility] Comment on above: Result Comment: ADA RECOMMENDED LIMIT 4.0 - 6.0 ADA THERAPEUTIC TARGET < 7.0 ACTION SUGGESTED > 7.0 Performed By: #### A 1C #### [facility] [address] [address] [address] Coco Rao Glucose [Mass/Vol] 180 mg/dL Normal [facility] Comment on above: Performed By: #### A 1C #### [facility] [address] [address] [address] Coco Rao HbA1c (Bld) [Mass fraction] 7.9 % Critically high 4.5-6.2 [facility] Comment on above: Performed By: #### A 1C #### [facility] [address] [place] [address] Dr. Coco Rao PROF 14(COMP METB)on 023 Albumin [Mass/Vol] 3.0 g/dL Critically low 3.4-5.0 Th e [facility] Comment on above: Performed By: #### C MP #### [facility] [address] [place] [address] Dr. Coco Rao Albumin/Globulin [Mass ratio] 0.6 {ratio} Normal [facility] Comment on above: Performed By: #### C MP #### [facility] [address] [place] [address] Dr. Coco Rao ALP [Catalytic activity/Vol] 94 U/L Normal 46-116 [facility] Comment on above: Performed By: #### C MP #### [facility] [address] [place] [address] Dr. Coco Rao ALT [Catalytic activity/Vol] 26 U/L Normal 16-63 [facility] Comment on above: Performed By: #### C MP #### [facility] [address] [place] [address] Dr. Coco Rao Anion gap [Moles/Vol] 14.3 mmol/L Normal [facility] Comment on above: Performed By: #### C MP #### [facility] [address] [place] [address] Dr. Coco Rao AST [Catalytic activity/Vol] 15 U/L Normal 15-37 [facility] Comment on above: Performed By: #### C MP #### [facility] [address] [place] [address] Dr. Coco Rao Bilirubin [Mass/Vol] 0.2 mg/dL Normal 0.2-1.0 [facility] Comment on above: Performed By: #### C MP #### [facility] [address] [place] [address] Dr. Coco Rao Calcium [Mass/Vol] 8.4 mg/dL Critically low 8.5-10.1 Th [facility] Comment on above: Performed By: #### C MP #### [facility] [address] [place] [address] Dr. Coco Rao Chloride [Moles/Vol] 101 mmol/L Normal 98-107 [facility] Comment on above: Performed By: #### C MP #### [facility] [address] [place] [address] Dr. Coco Rao CO2 [Moles/Vol] 25.7 mmol/L Normal 21.0-32.0 [facility] Comment on above: Performed By: #### C MP #### [facility] [address] [place] [address] Dr. Coco Rao Creatinine [Mass/Vol] 0.78 mg/dL Normal 0.70-1.30 [facility] Comment on above: Performed By: #### C MP #### [facility] [address] [place] [address] Dr. Coco Rao EGFR-AF [place] >60 Normal >=60 [facility] Comment on above: Performed By: #### C MP #### [facility] [address] [place] [address] Dr. Coco Rao EGFR-NON AF [place] >60 Normal >=60 [facility] Comment on above: Performed By: #### C MP #### [facility] [address] [place] [address] Dr. Coco Rao Globulin (S) [Mass/Vol] 5.2 g/dL Normal [facility] Comment on above: Performed By: #### C MP #### [facility] [address] [place] [address] Dr. Coco Rao Glucose [Mass/Vol] 134 mg/dL Critically high 74-[address] [facility] Comment on above: Performed By: #### C MP #### [facility] [address] [place] [address] Dr. Coco Rao Potassium [Moles/Vol] 4.0 mmol/L Normal 3.5-5.1 [facility] Comment on above: Performed By: #### C MP #### [facility] [address] [address] [address] Coco Rao Protein [Mass/Vol] 8.2 g/dL Normal 6.4-8.2 [facility] Comment on above: Performed By: #### C MP #### [facility] [address] [address] [address] Coco Rao Sodium [Moles/Vol] 137 mmol/L Normal 136-145 [facility] Comment on above: Performed By: #### C MP #### [facility] [address] [address] [address] Coco Rao Urea nitrogen [Mass/Vol] 10.0 mg/dL Normal 7.0-18.0 [facility] Comment on above: Performed By: #### C MP #### [facility] [address] [place] [address] Dr. Coco Rao Urea nitrogen/Creatinine [Mass ratio] 12.8 mg/mg Normal [facility] Comment on above: Performed By: #### C MP #### [facility] [address] [address] [address] Coco Rao CULTURE WOUNDon 11-02-2022 CULTURE WOUND Isolate 1 Streptococcus constellatus Moderate growth of ORGANISM 1 Streptococcus constellatus ANTIBIOTIC M.I.C RX STATUS Benzylpenicillin <=0.06 S F Ampicillin <=0.25 S F Cefotaxime <=0.12 S F Ceftriaxone 0.25 S F Erythromycin >=8 R F Clindamycin >=1 R F Linezolid <=2 S F Vancomycin 0.5 S F Tetracycline >=16 R F Normal [facility] Comment on above: Performed By: #### W OUNDCX #### [facility] [address] [place] [address] Dr. Coco Rao CULTURE WOUNDon 06-20-2022 CULTURE [...] R F Oxacillin >=4 R F Normal [facility] Comment on above: Performed By: #### W OUNDCX #### [facility] [address] [place] [address] Dr. Coco Rao MICROALBUMIN URINEon 022 Albumin, Urine 17.9 ug/mL Normal Not Estab. [facility] Comment on above: Performed By: #### M ALBLC #### [facility] [address] [place] [address] Dr. Coco Rao CBC AUTO DIFFon 05-10-2022 BASO # 0.1 103/ul Normal 0.0-0.1 [facility] Comment on above: Performed By: #### W OUNDCX #### [facility] [address] [place] [address] Dr. Coco Rao Basophils/100 WBC (Bld) 0.8 % Normal 0.2-2.0 [facility] Comment on above: Performed By: #### W OUNDCX #### [facility] [address] [place] [address] Dr. Coco Rao EO # 0.3 103/ul Normal 0.0-0.7 [facility] Comment on above: Performed By: #### W OUNDCX #### [facility] [address] [place] [address] Dr. Coco Rao Eosinophils/100 WBC (Bld) 3.0 % Normal 0.9-7.0 [facility] Comment on above: Performed By: #### W OUNDCX #### [facility] [address] [place] [address] Dr. Coco Rao Erythrocyte distribution width (RBC) [Ratio] 15.2 % Critically high 11.0-15.0 [facility] Comment on above: Performed By: #### W OUNDCX #### [facility] [address] [place] [address] Dr. Coco Rao Hematocrit (Bld) [Volume fraction] 44.7 % Normal 42.0-54.0 [facility] Comment on above: Performed By: #### W OUNDCX #### [facility] [address] [place] [address] Dr. Coco Rao Hemoglobin (Bld) [Mass/Vol] 14.2 g/dL Normal 14.0-18.0 [facility] Comment on above: Performed By: #### W OUNDCX #### [facility] [address] [place] [address] Dr. Coco Rao IG # 0.04 10e3/ul Critically high 0.00-0.03 [facility] Comment on above: Performed By: #### W OUNDCX #### [facility] [address] [place] [address] Dr. Coco Rao IG % 0.4 % Normal 0.0-0.5 [facility] Comment on above: Performed By: #### W OUNDCX #### [facility] [address] [place] [address] Dr. Coco Rao LYMPH # 3.3 103/ul Normal 1.2-3.8 [facility] Comment on above: Performed By: #### W OUNDCX #### [facility] [address] [place] [address] Dr. Coco Rao Lymphocytes/100 WBC (Bld) 30.5 % Normal 20.5-60.0 [facility] Comment on above: Performed By: #### W OUNDCX #### [facility] [address] [place] [address] Dr. Coco Rao MANUAL DIFF REQ NO Normal [facility] Comment on above: Performed By: #### W OUNDCX #### [facility] [address] [place] [address] Dr. Coco Rao MCH (RBC) [Entitic mass] 26.9 pg Normal 25.9-34.0 [facility] Comment on above: Performed By: #### W OUNDCX #### [facility] [address] [place] [address] Dr. Coco Rao MCHC (RBC) [Mass/Vol] 31.8 g/dL Normal 29.9-35.2 [facility] Comment on above: Performed By: #### W OUNDCX #### [facility] [address] [place] [address] Dr. Coco Rao MCV (RBC) [Entitic vol] 84.7 fL Normal 80.0-94.0 [facility] Comment on above: Performed By: #### W OUNDCX #### [facility] [address] [place] [address] Dr. Coco Rao MONO # 1.0 103/ul Critically high 0.3-0.8 [facility] Comment on above: Performed By: #### W OUNDCX #### [facility] [address] [place] [address] Dr. Coco Rao Monocytes/100 WBC (Bld) 9.1 % Normal 1.7-12.0 [facility] Comment on above: Performed By: #### W OUNDCX #### [facility] [address] [place] [address] Dr. Coco Rao NEUT # 6.1 103/ul Normal 1.4-6.5 [facility] Comment on above: Performed By: #### W OUNDCX #### [facility] [address] [place] [address] Dr. Coco Rao Neutrophils/100 WBC (Bld) 56.2 % Normal 43.0-75.0 [facility] Comment on above: Performed By: #### W OUNDCX #### [facility] [address] [place] [address] Dr. Coco Rao Platelet mean volume (Bld) [Entitic vol] 9.3 fL Critically low 9.5-13.5 [facility] Comment on above: Performed By: #### W OUNDCX #### [facility] [address] [place], [place] [id number] Dr. Coco Rao PLT 372 103/ul Normal 150-450 [facility] Comment on above: Performed By: #### W OUNDCX #### [facility] [address] [place] [address] Dr. Coco Rao RBC 5.28 106/ul Normal 4.70-6.10 [facility] Comment on above: Performed By: #### W OUNDCX #### [facility] [address] [place] [address] Dr. Coco Rao WBC 10.8 103/ul Normal 4.0-11.0 [facility] Comment on above: Performed By: #### W OUNDCX #### [facility] [address] [place] [address] Dr. Coco Rao FREE T4on 05-10-2022 Free T4 [Mass/Vol] 1.31 ng/dL Normal 0.76-1.46 [facility] Comment on above: Performed By: #### W OUNDCX #### [facility] [address] [place] [address] Dr. Coco Rao GLYCOHEMOGLOBIN A1Con 2021 ADA RECOMMENDATION SEE BELOW Normal [facility] Comment on above: Result Comment: ADA RECOMMENDED LIMIT 4.0 - 6.0 ADA THERAPEUTIC TARGET < 7.0 ACTION SUGGESTED > 7.0 Performed By: #### A 1C #### [facility] [address] [place] [address] Dr. Coco Rao Glucose [Mass/Vol] 232 mg/dL Normal [facility] Comment on above: Performed By: #### A 1C #### [facility] [address] [place] [address] Dr. Coco Rao HbA1c (Bld) [Mass fraction] 9.7 % Critically high 4.5-6.2 [facility] Comment on above: Performed By: #### A 1C #### [facility] [address] [place] [address] Dr. Coco aRo LIPID PROFILEon 05-10-2022 CHOL-HDL RATIO NORM SEE BELOW Normal [facility] Comment on above: Result Comment: 3.3 - 4.4 LOW RISK 4.4 - 7.1 AVERAGE RISK 7.1 - 11.0 MODERATE RISK >11.0 HIGH RISK Performed By: #### C MP, LIPID, TSH #### [facility] [address] [address] [address] Coco Rao Cholesterol [Mass/Vol] 130 mg/dL Normal <=200 [facility] Comment on above: Performed By: #### C MP, LIPID, TSH #### [facility] [address] [address] [address] Coco Rao Cholesterol in HDL [Mass/Vol] 40 mg/dL Normal 40-60 [facility] Comment on above: Performed By: #### C MP, LIPID, TSH #### [facility] [address] [address] [address] Coco Rao Cholesterol in LDL [Mass/Vol] 66.0 mg/dL Normal [facility] Comment on above: Performed By: #### C MP, LIPID, TSH #### [facility] [address] [place] [address] Dr. Coco Rao Cholesterol.total/Ch olesterol in HDL [Mass ratio] 3.3 {ratio} Normal [facility] Comment on above: Performed By: #### C MP, LIPID, TSH #### [facility] [address] [place] [address] Dr. Coco Rao HDL NORMAL > or = 60 mg/dl - LO W CARDIOVASCULAR RISK <40 mg/dl - HIGH CARDIOVASCULAR RISK Normal [facility] Comment on above: Performed By: #### C MP, LIPID, TSH #### [facility] [address] [place] [address] Dr. Coco Rao LDL CALC NORMAL SEE BELOW Normal [facility] Comment on above: Result Comment: <100 mg/dl OPTIMAL 100 - 129 mg/dl NEAR OR ABOVE OPTIMAL 130 - 159 mg/dl BORDERLINE HIGH 160 - 189 mg/dl HIGH >190 mg/dl VERY HIGH Performed By: #### C MP, LIPID, TSH #### [facility] [address] [address] [address] Coco Rao Triglyceride [Mass/Vol] 120 mg/dL Normal <=150 [facility] Comment on above: Performed By: #### C MP, LIPID, TSH #### [facility] [address] [address] [address] Coco Rao VLDL CALC 24.0 mg/dL Normal [facility] Comment on above: Performed By: #### C MP, LIPID, TSH #### [facility] [address] [address] [address] Coco Rao PROF 14(COMP METB)on 022 Albumin [Mass/Vol] 3.0 g/dL Critically low 3.4-5.0 [facility] Comment on above: Performed By: #### C MP, LIPID, TSH #### [facility] [address] [place] [address] Dr. Coco Rao Albumin/Globulin [Mass ratio] 0.5 {ratio} Normal [facility] Comment on above: Performed By: #### C MP, LIPID, TSH #### [facility] [address] [place] [address] Dr. Coco Rao ALP [Catalytic activity/Vol] 89 U/L Normal 46-116 [facility] Comment on above: Performed By: #### C MP, LIPID, TSH #### [facility] [address] [place] [address] Dr. Coco Rao ALT [Catalytic activity/Vol] 22 U/L Normal 16-63 [facility] Comment on above: Performed By: #### C MP, LIPID, TSH #### [facility] [address] [place] [address] Dr. Coco Rao Anion gap [Moles/Vol] 15.1 mmol/L Normal [facility] Comment on above: Performed By: #### C MP, LIPID, TSH #### [facility] [address] [place] [address] Dr. Coco Rao AST [Catalytic activity/Vol] 14 U/L Critically low 15-37 [facility] Comment on above: Performed By: #### C MP, LIPID, TSH #### [facility] [address] [place] [address] Dr. Coco Rao Bilirubin [Mass/Vol] 0.4 mg/dL Normal 0.2-1.0 [facility] Comment on above: Performed By: #### C MP, LIPID, TSH #### [facility] [address] [place] [address] Dr. Coco Rao Calcium [Mass/Vol] 8.6 mg/dL Normal 8.5-10.1 [facility] Comment on above: Performed By: #### C MP, LIPID, TSH #### [facility] [address] [place] [address] Dr. Coco Rao Chloride [Moles/Vol] 100 mmol/L Normal 98-107 [facility] Comment on above: Performed By: #### C MP, LIPID, TSH #### [facility] [address] [place] [address] Dr. Coco Rao CO2 [Moles/Vol] 23.5 mmol/L Normal 21.0-32.0 [facility] Comment on above: Performed By: #### C MP, LIPID, TSH #### [facility] [address] [place] [address] Dr. Coco Rao Creatinine [Mass/Vol] 0.74 mg/dL Normal 0.70-1.30 [facility] Comment on above: Performed By: #### C MP, LIPID, TSH #### [facility] [address] [place] [address] Dr. Coco Rao EGFR-AF [place] >60 Normal >=60 [facility] Comment on above: Performed By: #### C MP, LIPID, TSH #### [facility] [address] [place] [address] Dr. Coco Rao EGFR-NON AF [place] >60 Normal >=60 [facility] Comment on above: Performed By: #### C MP, LIPID, TSH #### [facility] [address] [place] [address] Dr. Coco Rao Globulin (S) [Mass/Vol] 5.7 g/dL Normal [facility] Comment on above: Performed By: #### C MP, LIPID, TSH #### [facility] [address] [place] [address] Dr. Coco Rao Glucose [Mass/Vol] 175 mg/dL Critically high 74-106 [facility] Comment on above: Performed By: #### C MP, LIPID, TSH #### [facility] [address] [place] [address] Dr. Coco Rao Potassium [Moles/Vol] 3.6 mmol/L Normal 3.5-5.1 [facility] Comment on above: Performed By: #### C MP, LIPID, TSH #### [facility] [address] [place] [address] Dr. Coco Rao Protein [Mass/Vol] 8.7 g/dL Critically high 6.4-8.2 [facility] Comment on above: Performed By: #### C MP, LIPID, TSH #### [facility] [address] [place] [address] Dr. Coco Rao Sodium [Moles/Vol] 135 mmol/L Critically low 136-145 [facility] Comment on above: Performed By: #### C MP, LIPID, TSH #### [facility] [address] [place] [address] Dr. Coco Rao Urea nitrogen [Mass/Vol] 13.0 mg/dL Normal 7.0-18.0 [facility] Comment on above: Performed By: #### C MP, LIPID, TSH #### [facility] [address] [place] [address] Dr. Coco Rao Urea nitrogen/Creatinine [Mass ratio] 17.6 mg/mg Normal [facility] Comment on above: Performed By: #### C MP, LIPID, TSH #### [facility] [address] [place] [address] Dr. Coco Rao TSHon 05-10-2022 TSH 1.025 uIU/mL Normal 0.358-3.74 0 [facility] Comment on above: Performed By: #### C MP, LIPID, TSH #### [facility] [address] [place] [address] Dr. Coco Rao UA RANDOM W/MICROSCOPICon BACTERIA NONE SEEN Normal NONE SEEN [facility] Comment on above: Performed By: #### U AMIC #### [facility] [address] [address] [address] Coco Rao Bilirubin Ql (U) Negative Normal NEGATIVE [facility] Comment on above: Performed By: #### U AMIC #### [facility] [address] [address] [address] Coco Rao CAST NONE SEEN Normal NONE SEEN [facility] Comment on above: Performed By: #### U AMIC #### [facility] [address] [address] [address] Coco Rao Clarity (U) CLEAR Normal CLEAR [facility] Comment on above: Performed By: #### U AMIC #### [facility] [address] [address] [address] Coco Rao Color (U) YELLOW Normal YELLOW [facility] Comment on above: Performed By: #### U AMIC #### [facility] [address] [address] [address] Coco Rao Crystals LM Nom (Urine sed) NONE SEEN Normal NONE SEEN [facility] Comment on above: Performed By: #### U AMIC #### [facility] [address] [address] [address] Coco Rao Epithelial cells LM Ql (Urine sed) FEW Abnormal NONE SEEN /RARE [facility] Comment on above: Performed By: #### U AMIC #### [facility] [address] [address] [address] Coco Rao Glucose Ql (U) 1000 mg/dl Abnormal NEGATIVE [facility] Comment on above: Performed By: #### U AMIC #### [facility] [address] [address] [address] Coco Rao Hemoglobin Ql (U) Negative Normal NEGATIVE [facility] Comment on above: Performed By: #### U AMIC #### [facility] [address] [address] [address] Coco Rao Ketones Ql (U) 15 mg/dl Abnormal NEGATIVE [facility] Comment on above: Performed By: #### U AMIC #### [facility] [address] [place] [address] Dr. Coco Rao LEUKOCYTES Negative Normal NEGATIVE [facility] Comment on above: Performed By: #### U AMIC #### [facility] [address] [address] [address] Coco Rao MUCOUS NONE SEEN Normal NONE SEEN [facility] Comment on above: Performed By: #### U AMIC #### [facility] [address] [address] [address] Coco Rao Nitrite Ql (U) Negative Normal NEGATIVE [facility] Comment on above: Performed By: #### U AMIC #### [facility] [address] [place] [address] Dr. Coco Rao pH (U) 6.0 [pH] Normal 5-9 [facility] Comment on above: Performed By: #### U AMIC #### [facility] [address] [place] [address] Dr. Coco Rao RBC NONE SEEN Abnormal 0-2 [facility] Comment on above: Performed By: #### U AMIC #### [facility] [address] [place] [address] Dr. Coco Rao SPEC GRAVITY 1.020 Normal 1.005-<=1. 025 [facility] Comment on above: Performed By: #### U AMIC #### [facility] [address] [place] [address] Dr. Coco Rao UA PROTEIN Negative Normal NEGATIVE/ TRACE [facility] Comment on above: Performed By: #### U AMIC #### [facility] [address] [place] [address] Dr. Coco Rao Urobilinogen Qn (U) 1.0 {Joce'U}/dL Normal 0.2 - 1. 0 [facility] Comment on above: Performed By: #### U AMIC #### [facility] [address] [place] [address] Dr. Coco Rao WBC NONE SEEN Normal NONE SEEN [facility] Comment on above: Performed By: #### U AMIC #### [facility] [address] [place] [address] Dr. Coco Rao Vital Signs Date Time Vital Sign Value Performing Clinician Facility 06-25-2024 08:59-0400 Body mass index (BMI) [Ratio] 52.43 kg/m2 Joanhouston Carrillo [employer] Work Phone: [facility] 06-25-2024 08:59-0400 Body temperature 98.1 [degF] Joan Lorena [employer] Work Phone: [facility] 06-25-2024 08:59-0400 Body weight 180.26 kg Joan Lorena [employer] Work Phone: [facility] 06-25-2024 08:59-0400 Diastolic blood pressure 100 mm[Hg] Joan Lorena [employer] Work Phone: [facility] 06-25-2024 08:59-0400 Heart rate 89 /min Joan Lorena [employer] Work Phone: [facility] 06-25-2024 08:59-0400 Respiratory rate 18 /min Joan Lorena [employer] Work Phone: [facility] 06-25-2024 08:59-0400 SaO2% (BldA) [Mass fraction] 98 % Joan Lorena [employer] Work Phone: [facility] 06-25-2024 08:59-0400 Systolic blood pressure 180 mm[Hg] Joan Cabrerazenonz [employer] Work Phone: [facility] 03-19-2024 18:00-0400 [facility] Jason [facility] Comment on above: Result Comment: patient d/c. transported pt via w/c to main doors per families request 03-19-2024 17:00-0400 [employer] Jason [facility] 03-19-2024 17:00-0400 Promise to Return Jason West [facility] 03-19-2024 16:52-0400 Hour[employer] Round[employer] Jason [facility] 03-19-2024 16:52-0400 Promise to Return Jason [facility] 03-19-2024 16:00-0400 Blood Pressure Location Jason [facility] 03-19-2024 16:00-0400 Body temperature 98.06 [degF] Jason West [facility] 03-19-2024 16:00-0400 Diastolic blood pressure 80 mm[Hg] Jason West [facility] 03-19-2024 16:00-0400 Heart rate 85 /min Jason [facility] 03-19-2024 16:00-0400 Mean blood pressure 105 mm[Hg] Jason West [facility] 03-19-2024 16:00-0400 Respiratory rate 16 /min Jason [facility] 03-19-2024 16:00-0400 SaO2% (BldA) [Mass fraction] 98 % Jason West [facility] 03-19-2024 16:00-0400 Systolic blood pressure 154 mm[Hg] Jason West [facility] 03-19-2024 15:49-0400 Promise to Return Jason West [facility] 03-19-2024 12:00-0400 Diastolic blood pressure 84 mm[Hg] Jason West [facility] 03-19-2024 12:00-0400 Systolic blood pressure 157 mm[Hg] Jason West [facility] 03-19-2024 06:00-0400 Body temperature 97.52 [degF] Jason [facility] 03-19-2024 06:00-0400 Diastolic blood pressure 83 mm[Hg] Jason [facility] 03-19-2024 06:00-0400 Heart rate 83 /min Jason [facility] 03-19-2024 06:00-0400 Respiratory rate 18 /min Jason [facility] 03-19-2024 06:00-0400 Systolic blood pressure 168 mm[Hg] Jason [facility] 03-19-2024 01:25-0400 Blood Pressure Location Jason [facility] 03-19-2024 01:25-0400 Body temperature 97.7 [degF] Jason [facility] 03-19-2024 01:25-0400 Heart rate 92 /min Jason [facility] 03-19-2024 01:25-0400 Mean blood pressure 103 mm[Hg] Jason [facility] 03-19-2024 01:25-0400 Respiratory rate 20 /min Jason [facility] 03-19-2024 01:25-0400 SaO2% (BldA) [Mass fraction] 97 % Jason [facility] 03-18-2024 21:33-0400 gluc 275 mg/dL Jason [facility] 03-18-2024 19:22-0400 Blood Pressure Location Jason [facility] 03-18-2024 19:22-0400 Mean blood pressure 103 mm[Hg] Jason West [facility] 03-18-2024 19:21-0400 Body temperature 97.7 [degF] Jason [facility] 03-18-2024 16:05-0400 Body temperature 98.24 [degF] Jason [facility] 03-18-2024 12:29-0400 Mean blood pressure 118 mm[Hg] Jason West [facility] 03-17-2024 21:36-0400 gluc 218 mg/dL Jason [facility] 03-17-2024 11:00-0400 Body temperature 98.24 [degF] Jason [facility] 03-17-2024 11:00-0400 Mean blood pressure 106 mm[Hg] Jason West [facility] 03-16-2024 00:34-0400 Heart rate 98 /min Jason [facility] 03-16-2024 00:34-0400 Mean blood pressure 98 mm[Hg] Jason [facility] 03-16-2024 00:34-0400 Respiratory rate 19 /min Jason [facility] 03-15-2024 14:20-0400 Body temperature 96.98 [degF] Jason [facility] 03-15-2024 14:20-0400 Respiratory rate 15 /min Jason [facility] 03-15-2024 14:10-0400 Respiratory rate 20 /min Jason [facility] 03-15-2024 13:47-0400 Body temperature 97.34 [degF] Jason [facility] 03-15-2024 05:00-0400 Heart rate 76 /min Jason West [facility] 03-14-2024 23:52-0400 Heart rate 82 /min Jason [facility] 03-05-2024 12:37-0400 Hour[employer] Round[employer] Esvin Milldale [facility] 03-05-2024 12:37-0400 Promise to Return Esvin Liz [facility] 03-05-2024 11:00-0400 [employer] Esvin Milldale [facility] 03-05-2024 11:00-0400 Promise to Return Esvin Liz [facility] 03-05-2024 10:00-0400 Diastolic blood pressure 92 mm[Hg] Esvin Liz [facility] 03-05-2024 10:00-0400 Hour[employer] Round[employer] Esvin Milldale [facility] 03-05-2024 10:00-0400 Promise to Return Esvin Liz [facility] 03-05-2024 10:00-0400 Systolic blood pressure 168 mm[Hg] Esvin Milldale [facility] 03-05-2024 09:45-0400 Body temperature 97.7 [degF] Esvin Liz [facility] 03-05-2024 09:45-0400 Diastolic blood pressure 91 mm[Hg] Esvin Liz [facility] 03-05-2024 09:45-0400 Heart rate 81 /min Esvin Liz [facility] 03-05-2024 09:45-0400 Mean blood pressure 119 mm[Hg] Esvin Liz [facility] 03-05-2024 09:45-0400 Respiratory rate 18 /min Esvin Liz [facility] 03-05-2024 09:45-0400 SaO2% (BldA) [Mass fraction] 98 % Esvin Liz [facility] 03-05-2024 09:45-0400 Systolic blood pressure 176 mm[Hg] Esvin Milldale [facility] [facility] 03-05-2024 05:23-0400 gluc 165 mg/dL Esvin Milldale [facility] 03-05-2024 03:55-0400 Respiratory rate 18 /min Esvin Liz [facility] 03-05-2024 03:50-0400 Heart rate 76 /min Esvni Liz [facility] 03-05-2024 03:50-0400 SaO2% (BldA) [Mass fraction] 98 % Esvin Liz [facility] 03-05-2024 03:49-0400 Diastolic blood pressure 86 mm[Hg] Esvin Milldale [facility] 03-05-2024 03:49-0400 Mean blood pressure 111 mm[Hg] Esvin Milldale [facility] 03-05-2024 03:49-0400 Systolic blood pressure 161 mm[Hg] Esvin Liz [facility] 03-05-2024 03:47-0400 Body temperature 97.88 [degF] Esvin Liz [facility] 03-04-2024 23:54-0400 gluc 169 mg/dL Esvin Milldale [facility] 03-04-2024 23:30-0400 Body temperature 98.6 [degF] Esvin Liz [facility] 03-04-2024 23:30-0400 Mean blood pressure 104 mm[Hg] Esvin Liz [facility] 03-04-2024 23:30-0400 Respiratory rate 18 /min Esvin Milldale [facility] 03-04-2024 23:30-0400 SaO2% (BldA) [Mass fraction] 97 % Esvin Liz [facility] 03-04-2024 20:09-0400 Mean blood pressure 104 mm[Hg] Esvin Milldale [facility] 03-04-2024 20:08-0400 Body temperature 98.96 [degF] Esvin Milldale [facility] 03-04-2024 19:50-0400 gluc 191 mg/dL Esvin Milldale [facility] 03-04-2024 18:35-0400 Blood Pressure Location Esvin Milldale [facility] 03-04-2024 18:35-0400 Body temperature 97.88 [degF] Esvin Milldale [facility] 03-04-2024 18:35-0400 Heart rate 85 /min Esvin Liz [facility] 03-04-2024 17:39-0400 Mean blood pressure 92 mm[Hg] Esvin Liz [facility] 03-04-2024 17:00-0400 Mean blood pressure 103 mm[Hg] Esvin Milldale [facility] 03-04-2024 14:15-0400 Body temperature 97.52 [degF] Esvin Hill [facility] 03-04-2024 14:15-0400 Heart rate 105 /min Esvin Hill [facility] Encounters Encounter Date Encounter Type Care Provider Facility Start: 07-13-2024 End: 07-13-2024 Refill Joan Aichholz [employer] Work Phone: [facility] Comment on above: Type 2 diabetes vicky itus with other skin complication, without long-term current use of insulin (CMS/HCC) Start: 07-02-2024 End: 07-02-2024 Refill Joan Aichholz [employer] Work Phone: [facility] Comment on above: Hidradenitis suppura tiva (Primary Dx) Start: 06-29-2024 End: 06-29-2024 ambulatory Demarco Collins Facility:[facility] Start: 06-25-2024 End: 06-25-2024 Bamboo flowsheet Joan Aichholz [employer] Work Phone: [facility] Start: 06-25-2024 End: 06-25-2024 Bamboo flowsheet Joan Aichholz [employer] Work Phone: [facility] Start: 06-25-2024 End: 06-25-2024 Office outpatient visit 25 minutes Joan Aichholz [employer] Work Phone: [facility] Comment on above: Type 2 diabetes vicky itus with other skin complication, without long-term current use of insulin (CMS/HCC) (Primary Dx); Hypertriglyceridemia (CMS/HCC); Anxiety and depression (CMS/HCC); Primary hypertension (CMS/HCC); Overactive bladder; Gastroesophageal reflux disease without esophagitis; Morbid obesity (CMS/HCC); BMI 50.0-59.9, adult (CMS/HCC); Hidradenitis suppurativa; Neuropathy Start: 06-25-2024 End: 06-25-2024 ambulatory JOAN AICHHOLZ Not Available Start: 06-15-2024 End: 06-15-2024 Orders Only Joan Aichholz [employer] Work Phone: [facility] Comment on above: Lung nodule (Primary Dx) Start: 06-13-2024 End: 06-13-2024 Clinisync Result Encounter Joan Aichholz [employer] Work Phone: [facility] Unsolicited Start: 06-13-2024 End: 06-13-2024 Clinisync Result Encounter Joan Aichholz [employer] Work Phone: [facility] Unsolicited Start: 06-05-2024 End: 06-16-2024 Refill Joan Aichholz [employer] Work Phone: [facility] Comment on above: Type 2 diabetes vicky itus without complication, without long- term current use of insulin ([facility]) (Primary Dx) Start: 04-03-2024 End: 04-03-2024 ambulatory Demarco Collins Facility:[facility] Start: 03-26-2024 Patient encounter procedure Joan Aichholz [employer] Work Phone: [facility] Start: 03-26-2024 End: 03-26-2024 ambulatory JOAN AICHHOLZ Not Available Start: 03-25-2024 End: 03-25-2024 ambulatory Shannon Gallegos Facility:[facility] Start: 03-23-2024 ambulatory Demarco Collins Facility:[facility] Start: 03-14-2024 End: 03-19-2024 Evaluation and management of inpatient Salvatore WOOTEN Facility:[facility] Start: 03-14-2024 Emergency department patient visit Demarco Ferreira Facility:[facility] Start: 03-14-2024 End: 03-19-2024 Evaluation and management of inpatient Jason X West [facility] Start: 03-04-2024 End: 03-05-2024 ambulatory Bryce Gibson Facility:[facility] Start: 03-04-2024 Emergency department patient visit Bryce Gibson Facility:[facility] Start: 03-04-2024 End: 03-05-2024 Observation Esvin Hill [facility] Start: 10-10-2023 End: 10-10-2023 ambulatory JOAN AICHHOLZ Not Available Start: 08-13-2023 End: 08-14-2023 ambulatory Alesha Christensen Facility:[facility] Start: 12-26-2022 End: 12-27-2022 ambulatory PACK PULLER JOAN AICHHOLZ Facility: Start: 11-27-2022 End: 11-28-[address] SALVATORE MATHUR . Facility: Start: 11-05-2022 End: 11-05-2022 Patient encounter procedure Salvatore MATHUR [facility] Start: 10-29-2022 End: 10-29-2022 ambulatory PACK PULLER JOAN AICHHOLZ Facility: Start: 06-18-2022 End: 06-18-2022 ambulatory PACK PULLER JOAN AICHHOLZ Facility:[facility] Start: 05-11-2022 End: 05-11-2022 ambulatory PACK PULLER JOAN AICHHOLZ Facility:[facility] Start: 05-10-2022 End: 05-11-2022 ambulatory PACK PULLER JOAN AICHHOLZ Facility:[facility] Procedures Date Procedure Procedure Detail Performing Clinician Start: 06-13-2024 ALL CBC WITH AUTO DIFF Joan Aichholz [employer] Work Phone: Start: 03-21-2016 Drainage of scrotal abscess Salvatore MATHUR Tonsillectomy Salvatore MATHUR Plan of Treatment Date Care Activity Detail Author Start: 03-26-2025 Medicare Annual Wellness (AWV) Medicare Annual Wellness (AWV) [facility] Start: 03-19-2025 Urine screening for protein Diabetes: Urine Protein Screening [facility] Start: 09-13-2024 Hemoglobin A1c measurement Diabetes: Hemoglobin A1C [facility] Start: 07-27-2024 End: 07-27-2024 Patient encounter procedure 07/27/2024 3:40 PM EST Office Visit [facility] [address] [place] [address] Joan Carrillo NP [address] [place] [address] [facility] Start: 06-25-2024 End: 06-25-2024 Patient encounter procedure [facility] Comment on above: Arrived Start: 06-15-2024 End: 06-15-2025 CT Chest W contrast IV CT chest w IV contrast Imaging Routine Lung nodule Expected: 06/15/2024 (Approximate), Expires: 06/15/2025 [facility] Work Phone: Comment on above: Expected: 06/15/2024 (Approximate), Expires: 06/15/2025 Start: 04-24-2024 ambulatory Ambulatory Facility:[facility] Start: 1985 Glaucoma screening Diabetes: R etinopathy Screening [facility] Start: 1975 Hemoglobin A1c measurement Diabetes: Hemoglobin A1C [facility] Start: 1975 Screening for malign ant neoplasm of colon [facility] Immunizations Immunization Date Immunization Notes Care Provider Fa cility 04-25-2021 SARS-CoV-2 (COVID-19 ) mRNA BNT-162b2 vax Salvatore MATHUR [facility] 03-31-2021 SARS-CoV-2 (COVID-19 ) mRNA BNT-162b2 brennon MATHUR [facility] Payers Date Payer Category Payer Medicare HU[employer] MEDICARE ADVANTAGE HU[employer]NA MEDICARE [id number] 2021-Present [address] [address] [place] [address] [id number] 2021 Medicare (Managed Care) [employer]NA M EDICARE ADVANTAGE Member Subscriber Plan / Payer (Effective 2021-Present) Name: Christian Shelby Relation to Subscriber: Self Name: Christian Shelby Payer ID: [id number] (NAIC) Type: Not on file Address: [place] [id number] 1975 Unknown [id number] 2.16.840.1.589622.3.579. 2.593 1975 Unknown [id number] 2.16.840.1.395984.3.579. 2.593 1975 Unknown [id number] 2.16.840.1.142082.3.579. 2.593 1975 Unknown [id number] 2.16.840.1.012017.3.579. 2.593 1975 Unknown [id number] 2.16.840.1.565478.3.579. 2.593 1975 Unknown [id number] 2.16.840.1.096472.3.579. 2.593 1975 Unknown [id number] 2.16.840.1.814149.3.579. 2.593 1975 Unknown [id number] 2.16.840.1.931728.3.579. 2.727 1975 Unknown [id number] 2.16.840.1.984886.3.579. 2.727 1975 Unknown [id number] 2.16.840.1.464275.3.579. 2.727 1975 Unknown [id number] 2.16.840.1.013107.3.579. 2.727 1975 Unknown [id number] 2.16.840.1.326898.3.579. 2.727 1975 Unknown [id number] 2.16.840.1.475845.3.579. 272 1975 Unknown [id number] 2.16.840.1.812379.3.579. 2.727 1975 Unknown [id number] 2.16.840.1.741263.3.579. 272 1975 Unknown [id number] 2.16.840.1.720979.3.579. 272 1975 Unknown [id number] 2.16.840.1.378565.3.579. 2 1975 Unknown [id number] 2.16.840.1.077273.3.579. 2 1975 Unknown [id number] 2.16.840.1.091528.3.579. 272 1975 Unknown [id number] 2.16.840.1.657283.3.579. 272 1975 Unknown [id number] 2.16.840.1.978070.3.579. 2 1975 Unknown [id number] 2.16.840.1.472342.3.579. 272 1975 Unknown [id number] 2.16.840.1.302042.3.579. 2.72 1975 Unknown [id number] 2.16.840.1.717219.3.579. 272 1975 Unknown [id number] 2.16.840.1.031786.3.579. 272 1975 Unknown [id number] 2.16.840.1.162904.3.579. 2.72 1975 Unknown [id number] 2.16.840.1.949043.3.579. 2.1259 1975 Unknown [id number] 2.16.840.1.030795.3.579. 2.1259 1975 Unknown [id number] 2.16.840.1.822924.3.579. 2.1259 1975 Unknown [id number] 2.16.840.1.748093.3.579. 2.727 1959 Medicare [id number] Social History Date Type Detail Facility Start: 11-05-2022 End: 10-10-2023 Tobacco smoking status Ex-smoker (finding) [facility] Start: 03-26-2024 End: 06-25-2024 Sex Assigned At Male [facility] History of tobacco use Current smoker [facility] History of tobacco use Cigarette Smoker [facility] Start: 10-10-2023 Tobacco use and exposure Smokeless tobacco non-user [facility] Start: 03-26-2024 End: 06-25-2024 Alcoholic beverage intake Lifetime non-drinker (finding) [facility] Start: 03-26-2024 End: 06-25-2024 History of Social function [facility] Start: 10-10-2023 Alcohol Comment caffine: diet mountain dew 3-4 daily [facility] Start: 1975 Sex assigned at Not on file [facility] Medical Equipment Procedure Code Equipment Code Equipment Origin al Text Equipment Identifier Dates 1 each by Other route Daily 1 each by Other route if needed. [id number] Start: 06-05-2024 End: 09-13-2024 1 each by Other route Daily 1 each by Other route if needed. [id number] Start: 07-13-2024 End: 10-21-2024 Functional Status Date Assessment Result Facility 03-14-2024 Functional Status N/A [facility] 03-14-2024 Functional Status [facility] 03-04-2024 Functional Status N/A [facility] 03-04-2024 Functional Status [facility] 11-05-2022 Functional Status N/A [facility] Clinical Notes 11-05-2022 to 06-30-2024 Joan Carrillo, [employer] - 06/25/2024 9:23 AM Tova Carrillo, RAFAELA - 06/25/2024 9:19 AM Tova Carrillo, RAFAELA - 06/25/2024 9:18 AM EDMargarita Carrillo, RAFAELA - 06/25/2024 9:18 AM EDT Note Date & Type Note Facility 06-30-2024 Note Progress Note-Physic fredy Patient: CHRISTIAN SHELBY Age: 48 years Sex: Male : 1975 Associated Diagnoses: None Author: Ambrosio Layne Jr, DO Preoperative Information Anesthesia Preop Info: Time patient last ate or drank 06/29/2024 00:00:00. Anesthesia history: Patient history: None. Family [...] Type II diabetes mellitus / SNOMED CT 936962569 / Confirmed Smoker / SNOMED CT 483385587 / Confirmed Encounter for screening colonoscopy / SNOMED CT 486517649 / Confirmed Morbid obesity / SNOMED CT 574834664 / Confirmed Melena / SNOMED CT 0692180 / Confirmed Recurrent scrotal infection / SNOMED CT 8685318372 / Confirmed Abdominal hernia / SNOMED CT 46065840 / Confirmed Left groin mass / SNOMED CT 0600043296 / Confirmed Gastritis / SNOMED CT 2965758 / Confirmed Anxiety / SNOMED CT 83564504 / Confirmed Scrotal abscess / SNOMED CT 26271536 / Confirmed Resolved: At risk for falls / SNOMED CT 880955331 Problem added when Risk for Falls Careplan was initiated. Resolved due to patient discharge. Canceled: Orchitis / SNOMED CT 330993094 Canceled: Scrotal infection / SNOMED CT 4698055234 Canceled: Epididymitis / SNOMED CT 52262653 Histories Procedure history: Colonoscopy ([id number]) on 04/03/2024 at 48 Years. Comments: 04/03/2024 15:52 EDT - Rupesh WILHELM, Flores normal Esophagogastroduodenoscopy ([id number]) on 04/03/2024 at 48 Years. Comments: 04/03/2024 15:53 EDT - Flores Goddard RN duodenitis, antral biiopsy Drainage of scrotal abscess ([id number]) on 03/21/2016 at 40 Years. Tonsillectomy ([id number]). Social History Social & Psychosocial Habits Alcohol [...] adequate air exchange. Cardiovascular: Regular rhythm. Plan [place] [employer]hesi[employer] (ASA) physical status classification: Class IV. Anesthetic Preoperative Plan: Anesthesia General. [facility] Comment on above: Result Comment: Elec tronically Signed By: Ambrosio Layne Jr, DO\.br\Date and Time Signed: 06/30/24 17:45 EDT 06-30-2024 Note Progress Note-Physic fredy Patient: CHRISTIAN SHELBY Age: 48 years Sex: Male : 1975 Associated Diagnoses: None Author: Ambrosio Layne Jr, DO Postoperative Information Postoperative disposition: Postoperative disposition: To PACU. Optimetrix number: Optimetrix number [id number]. Anesthetic utilized: General. Health Status Allergies: Allergic Reactions (Selected) No Known Medication Allergies Physical Examination Vital Signs 06/29/2024 8:09 EDT Heart Rate Monitored 83 bpm Respiratory Rate Monitored 25 br/min Systolic Blood Pressure 136 mmHg Diastolic Blood Pressure 71 mmHg Mean Arterial Pressure, Cuff 93 mmHg SpO2 95 % 06/29/2024 8:00 EDT Heart Rate Monitored 84 bpm Respiratory Rate Monitored 26 br/min Systolic Blood Pressure 143 mmHg HI Diastolic Blood Pressure 83 mmHg Mean Arterial Pressure, Cuff 103 mmHg SpO2 96 % 06/29/2024 7:50 EDT Temperature Temporal Artery 36.7 DegC Heart Rate Monitored 81 bpm Respiratory Rate Monitored 22 br/min Systolic Blood Pressure 158 mmHg HI Diastolic Blood Pressure 85 mmHg Mean Arterial Pressure, Cuff 109 mmHg SpO2 97 % Pain Assessment: Controlled. General: Awake, Alert, [...] when meets criteria ( To home ). [facility] Comment on above: Result Comment: Elec tronically Signed By: Ambrosio Layne Jr, DO\.br\Date and Time Signed: 06/30/24 17:44 EDT 06-29-2024 Note History and Physical Patient: CHRISTIAN SHELBY Age: 48 years Sex: Male : 1975 Associated Diagnoses: None Author: Karina MARTINEZ, Demarco Martins Chief Complaint Gastritis here for surveillance EGD Review of Systems Constitutional: Negative. Eye: Negative. Ear/Nose/Mouth/Throat: Negative. Respiratory: Negative. Cardiovascular: Negative. Health Status Allergies: Allergies reviewed. Histories Past Medical History: No active or resolved past medical history items have been selected or recorded. Family History: Entire family history is negative. Procedure history: EGD - esophagogastroduodenoscopy ([id number]) on 06/29/2024 at 48 Years. Colonoscopy ([id number]) on 04/03/2024 at 48 Years. Comments: 04/03/2024 15:52 EDT - Flores Goddard RN normal Esophagogastroduodenoscopy ([id number]) on 04/03/2024 at 48 Years. Comments: 04/03/2024 15:53 EDT - Rupesh WILHELM, Flores duodenitis, antral biiopsy Drainage of scrotal abscess ([id number]) on 03/21/2016 at 40 Years. Tonsillectomy ([id number]). Social History Social & Psychosocial Habits Alcohol [...] Former smoker, quit more . Physical Examination Vital Signs (last 24 hrs) Last Charted Temp Temporal 36.7 DegC (JUN 29 07:50) Heart Rate Monitored 83 bpm (JUN 29 08:09) Resp Rate 25 br/min (JUN 29 08:09) SBP 136 mmHg (JUN 29 08:09) DBP 71 mmHg (JUN 29 08:09) Weight 182 kg (JUN 29 06:56) BMI 53.18 (JUN 29:56) abdomen s/nt/nd Impression and Plan Condition: Stable. Course: Progressing as expected. H&P not OP note [facility] Comment on above: Result Comment: Elec tronically Signed By: Karina MARTINEZ, Demarco Martins\.br\Date and Time Signed: 06/29/24 10:26 EDT 06-29-2024 Note Patient Education - Text Gastric Bezoar A gastric bezoar is a collection of materials in your stomach that your body cannot fully digest. Bezoars are classified by what they are made up of. -Phytobezoars are the most common type of bezoar. They are composed of fruit and vegetable matter. -Trichobezoars are composed of hair. -Pharmacobezoars are composed of ingested medications. -Other bezoars may be composed of various substances, such as paper, Styrofoam, and vinyl. Gastric bezoars are usually the result of taking in material that the stomach cannot digest. For example, patients with bezoars may have a stomach that is slow to empty or cannot grind down the material. Once they form, gastric bezoars can grow with the continued intake of substances that cannot be digested. Risk Factors Risk factors of developing a gastric bezoar include dehydration, impaired gastric emptying, obstructed gastric outlet, and use of certain medications (such as opiates and coated or encapsulated medications). Symptoms The most common symptoms of a gastric bezoar include nausea, vomiting, abdominal pain, loss of appetite, feeling of fullness, and weight loss. However, most patients who develop a gastric bezoar do not have any symptoms initially, because bezoars often do not completely block the digestive tract. Diagnosis A gastric bezoar can be diagnosed during an upper gastrointestinal endoscopy procedure, like an EGD. It appears as a dark brown, green, or black ball of material in the stomach that does not have a clear shape or form. Treatment Treatment of a bezoar depends on factors such as its size and the patient's symptoms. Your doctor may prescribe treatments including medication or Coca-Cola to help break down or dissolve the bezoar. Prevention To help prevent another bezoar from forming, patients are encouraged to increase their water intake, change their diet by avoiding foods that are high in fiber and fat, and carefully chew their food. When appropriate, patients may also be instructed to avoid specific medications and seek psychiatric evaluation. Patients may also be tested for impaired gastrointestinal motility. [facility] 06-25-2024 History of Present illness Narrative Associated Problem(s): Anxiety and depression (CMS/HCC) Cont effexor Associated Problem(s): Hidradenitis suppurativa Is on bactrim BID Will refer to new derematologist Associated Problem(s): Morbid obesity (CMS/HCC) Weight loss surgery Associated Problem(s): Type 2 diabetes mellitus, without long-term current use of insulin (CMS/HCC) Will increase farxiga to 10mg daily Cont current meds Associated Problem(s): Gastroesophageal reflux disease without esophagitis Cont PPI Associated Problem(s): Hypertension (CMS/HCC) Not at goal, will cont losartan Add amlodipine 5mg Fu in 4 weeks Limit sodium intake Pt would like a new referral to a different oil pipeline operator Pt would like to talk about his feet- he feels a lot of pain on the bottom of his feet/pads of his feet (states that it feels like he is walking on legos) Pt states that he is not getting numbness or tangling in his feet And it is only when he stands and walks. Images from the original note were not included. Christian Shelby is a 48 y.o. male presents with chief complaint of No chief complaint on file. HPI: Bilat feet pain, ball of foot worse at end of day, no NT, feels like walking on legos, no open sores,no acute back pain Hypertension This is a chronic problem. The current episode started more than 1 year ago. The problem is unchanged. The problem is uncontrolled. Associated symptoms include peripheral edema. Pertinent negatives include no anxiety, blurred vision, chest pain, headaches, malaise/fatigue, neck pain, orthopnea, palpitations, PND, shortness of breath or sweats. There are no associated agents to hypertension. Risk factors for coronary artery disease include diabetes mellitus, dyslipidemia, male gender, obesity and sedentary lifestyle. Past treatments include angiotensin blockers. The current treatment provides moderate improvement. There are no compliance problems. Diabetes He presents for his follow-up diabetic visit. He has type 2 diabetes mellitus. His disease course has been fluctuating. There are no hypoglycemic associated symptoms. Pertinent negatives for hypoglycemia include no dizziness, headaches, nervousness/anxiousness, seizures, sweats or tremors. Associated symptoms include polyuria. Pertinent negatives for diabetes include no blurred vision, no chest pain, no foot ulcerations, no polydipsia, no visual change, no weakness and no weight loss. There are no hypoglycemic complications. Diabetic complications include peripheral neuropathy. Risk factors for coronary artery disease include diabetes mellitus, dyslipidemia, hypertension, male sex, obesity and sedentary lifestyle. Current diabetic treatment includes oral agent (triple therapy). He is compliant with treatment all of the time. He rarely participates in exercise. His overall blood glucose range is 140-180 mg/dl. An ENEIDA inhibitor/angiotensin II receptor des is being taken. He does not see a disability insurance claim examiner.Eye exam is not current. SUBJECTIVE: MEDICATIONS: Current Outpatient Medications Medication Instructions atorvastatin (LIPITOR) 20 mg, Oral, Daily busPIRone (BUSPAR) 5 mg, Oral, 2 times daily dapagliflozin (FARXIGA) 5 mg, Oral, Daily glimepiride (AMARYL) 4 mg, Oral, Daily before breakfast glucose blood (True Metrix Blood Glucose Test) test strip 1 each, Other, Daily, 1 each by Other route if needed. losartan (COZAAR) 100 mg, Oral, Daily metFORMIN (GLUCOPHAGE) 1,000 mg, Oral, 2 times daily with meals oxybutynin XL (DITROPAN-XL) 5 mg, Oral, Daily pantoprazole (PROTONIX) 20 mg, Oral, 2 times daily sulfamethoxazole-trimethoprim (Bactrim DS) 800-160 MG per tablet 1 tablet, Oral, Every 12 hours venlafaxine XR (EFFEXOR XR) 75 mg, Oral, Daily ALLERGIES: No Known Allergies REVIEW OF SYMPTOMS: Review of Systems Constitutional: Negative for activity change, appetite change, malaise/fatigue, unexpected weight change and weight loss. HENT: Negative for ear pain, nosebleeds, sneezing, trouble swallowing and voice change. Eyes: Negative for blurred vision, pain, discharge and visual disturbance. Respiratory: Negative for apnea, chest tightness, shortness of breath and wheezing. Cardiovascular: Positive for leg swelling. Negative for chest pain, palpitations, orthopnea and PND. Gastrointestinal: Negative for abdominal distention, blood in stool, constipation and diarrhea. Genitourinary: Negative for decreased urine volume, difficulty urinating, dysuria and hematuria. Musculoskeletal: Positive for arthralgias. Negative for neck pain. Skin: Positive for wound (HS). Negative for color change. Neurological: Negative for dizziness, tremors, seizures, weakness and headaches. Psychiatric/Behavioral: Negative for agitation, decreased concentration, hallucinations, self-injury and suicidal ideas. The patient is not nervous/anxious. Depression Hematological: Negative for adenopathy. Does not bruise/bleed easily. Endocrine: Positive for polyuria. Negative for cold intolerance, heat intolerance and polydipsia. Allergic/Immunologic: Negative for environmental allergies and food allergies. PAST MEDICAL HISTORY Past Medical History: Diagnosis Date Anxiety and depression ([facility]) 09/24/2023 Arthritis Boils of multiple sites 09/24/2023 Elevated serum protein level 09/24/2023 Hidradenitis suppurativa 09/24/2023 Hypertension ([facility]) Hypertriglyceridemia ([facility]) 09/24/2023 Lung nodule 09/24/2023 Overactive bladder Pruritus Type 2 diabetes mellitus with skin complication, without long-term current use of insulin ([facility]) 08/27/2023 No past surgical history on file. family history is not on file. OBJECTIVE: Visit Vitals BP (!) 180/100 Pulse 89 Temp 98.1 F (Temporal) Resp 18 Wt 397 lb 6.4 oz SpO2 98% BMI 52.43 kg/m Smoking Status Former BSA 3.04 m Physical Exam Vitals and nursing note reviewed. Constitutional: Appearance: Normal appearance. He is obese. HENT: Head: Normocephalic. Right Ear: External ear normal. Left Ear: External ear normal. Nose: Nose normal. Mouth/Throat: Mouth: Mucous membranes are moist. Pharynx: Oropharynx is clear. Eyes: Extraocular Movements: Extraocular movements intact. Conjunctiva/sclera: Conjunctivae normal. Neck: Vascular: No carotid bruit. Cardiovascular: Rate and Rhythm: Normal rate and regular rhythm. Pulses: Normal pulses. Heart sounds: Normal heart sounds. Pulmonary: Effort: Pulmonary effort is normal. Breath sounds: Normal breath sounds. No wheezing or rales. Abdominal: General: Bowel sounds are normal. Palpations: Abdomen is soft. Tenderness: There is no abdominal tenderness. There is no guarding. Musculoskeletal: Cervical back: Neck supple. Right lower leg: No edema. Left lower leg: No edema. Lymphadenopathy: Cervical: No cervical adenopathy. Skin: General: Skin is warm and dry. Capillary Refill: Capillary refill takes 2 to 3 seconds. Neurological: General: No focal deficit present. Mental Status: He is alert. Psychiatric: Mood and Affect: Mood normal. Behavior: Behavior normal. Thought Content: Thought content normal. Judgment: Judgment normal. ASSESSMENT AND PLAN: No follow-ups on file. Problem List Items Addressed This Visit Hypertension (CMS/HCC) Not at goal, will cont losartan Add amlodipine 5mg Fu in 4 weeks Limit sodium intake Relevant Medications losartan (Cozaar) 100 MG tablet amLODIPine (Norvasc) 5 MG tablet Overactive bladder Relevant Medications oxybutynin XL (Ditropan-XL) 5 MG 24 hr tablet Hidradenitis suppurativa Is on bactrim BID Will refer to new derematologist Relevant Orders Ambulatory referral to Dermatology Hypertriglyceridemia (CMS/HCC) Relevant Medications atorvastatin (Lipitor) 20 MG tablet Anxiety and depression (CMS/HCC) Cont effexor Relevant Medications busPIRone (Buspar) 5 MG tablet venlafaxine XR (Effexor XR) 75 MG 24 hr capsule BMI 50.0-59.9, adult (CMS/HCC) Morbid obesity (CMS/HCC) Weight loss surgery Type 2 diabetes mellitus, without long-term current use of insulin (CMS/HCC) Will increase farxiga to 10mg daily Cont current meds Relevant Medications glimepiride (Amaryl) 4 MG tablet metFORMIN (Glucophage) 1000 MG tablet dapagliflozin (Farxiga) 10 MG Gastroesophageal reflux disease without esophagitis - Primary Cont PPI Relevant Medications pantoprazole (ProtoNix) 20 MG EC tablet Neuropathy Relevant Medications gabapentin (Neurontin) 300 MG capsule documented in this encounter [facility] 04-04-2024 Note Progress Note-Physic fredy Patient: CHRISTIAN [...] Type II diabetes mellitus / SNOMED CT 268096782 / Confirmed Smoker / SNOMED CT 578248958 / Confirmed Encounter for screening colonoscopy / SNOMED CT 356123018 / Confirmed Morbid obesity / SNOMED CT 476706233 / Confirmed Melena / SNOMED CT 6818619 / Confirmed Recurrent scrotal infection / SNOMED CT 0689057083 / Confirmed Abdominal hernia / SNOMED CT 33165025 / Confirmed Left groin mass / SNOMED CT 1772597614 / Confirmed Anxiety / SNOMED CT 63362187 / Confirmed Scrotal abscess / SNOMED CT 66512704 / Confirmed Resolved: At risk for falls / SNOMED CT 151896112 Problem added when Risk for Falls Careplan was initiated. Resolved due to patient discharge. Canceled: Orchitis / SNOMED CT 094902093 Canceled: Scrotal infection / SNOMED CT 2254886723 Canceled: Epididymitis / SNOMED CT 25029631 Histories Procedure history: Drainage of scrotal abscess (399246257) on 03/21/2016 at 40 Years. Tonsillectomy (013949352). Social History Social & Psychosocial Habits Alcohol Comment: Denies use. - 08/14/2023 03:42 - Elisa Harrison RN Substance Abuse 04/03/2024 Type: Marijuana 04/03/2024 Use: [...] adequate air exchange. Cardiovascular: Regular rhythm. Plan [place] [employer]hesiologists (ASA) physical status classification: Class IV. Anesthetic Preoperative Plan: Anesthesia General. [facility] Comment on above: Result Comment: Elec tronically Signed By: Ambrosio Layne Jr, DO\.br\Date and Time Signed: 04/04/24 10:18 EDT 04-04-2024 Note Progress Note-Physic fredy Patient: CHRISTIAN [...] when meets criteria ( To home ). [facility] Comment on above: Result Comment: Elec [...] activities are safe for you. ? Take fgbd-yqx-oqcdhxe and prescription medicines only as told by [...] provider. Document Revised: 12/05/2022 Document Reviewed: 12/05/2022 [employer] Patient Education ? 2022 [employer]. Infectious Disease Duodenitis Duodenitis is inflammation of [...] scarring or [place] (more content not included)... [facility] 03-22-2024 Note Discharge Summary DISCHARGE SUMMARY [place] [id number] CHRISTIAN SHELBY Date of : 1975 48 Years Male Attending Jason West MD Date of Admission 03/14/2024 Date of Discharge [...] and diabetes. Patient was last seen at [facility] on 03/04 when he was admitted for observation given pain and possible obstruction of his known chronic ventral hernia (over 20 years). At that time, the hernia was partially reduced and he was able to tolerate a diet without issue and discharged home. 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 on RN EMERGENCY ROOM for pain 03/17/2024: tolerating diet, +BM 03/18/2024: [...] FOLLOW UP: With: Address: When: trauma clinic [address] [place] [address] 3, second floor, [address] [place], [place] [id number] 03/25/2024 9:30 AM Comments: Call to schedule/confirm followup appointment for wound check and GHULAM drain removal Other indicated follow up and instructions for scheduling: F/U with Dr. Jessica Crawford for bariatric surgery at [facility], her o (more content not included)... [facility] Comment on above: Result Comment: Elec [...] 03/16/2024: +flatus, +nausea but no vomiting. 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 This patient's plan of care was discussed [...] PRN venlafaxine 75 mg Cap-ER, Oral, Daily [facility] Comment on above: Result Comment: Elec tronically Signed By: Madison BEAN, Leandra Del Rosario\.br\Date and Time Signed: 03/20/24 00:22 EDT\.br\Electronically Co-Signed [...] without obstruction or gangrene) Will follow-up with [facility] for management of hernia 2. Melena (K92.1: [...] SARS-CoV-2 (COVID-19) mRNA BNT-162b2 vax 03/31/2021 Recorded [facility] Comment on above: Result Comment: Elec tronically Signed By: Karina MARTINEZ, Demarco Jack.br\Date and Time Signed: 03/20/24 15:24 EDT 03-19-2024 Hospital Discharge instructions Patient Education 03/19/2024 15:03:31 Maureen Elmore Drainage [facility] (CUSTOM) [place], [place] Neno Reddy MD, FACS DISCHARGE INSTRUCTIONS [...] red GHULAM OUTPUT IN CC'S #1 AMAFTERNOONPM ____ ____ ____ ___ ____ ____ ____ ____ ____ ____ ____ ____ #2 AMAFTERNOONPM ____ ____ ____ ___ ____ ____ ____ ____ ____ ____ ____ ____ Written: 05-1803/19/2024 15:03:21 Open Hernia Repair, Adult, Care After, Dtam-nr-Bpxz Open Hernia Repair, Adult, Care After What [...] have problems, call your doctor. Medicines Take xfpo-nhl-rqbtket and prescription medicines only as told by [...] cannot use soap and water, use hand rod puller. ?Change your bandage. ?Leave stitches or skin [...] provider. Document Revised: 04/10/2021 Document Reviewed: 04/10/2021 [employer] Patient Education 2022 [employer]. 03/17/2024 07:59:08 Diet - Basic Carbohydrate Counting [...] hot dog bun (1 ounce) 3/4 cup ehyno-zw-vpk cereal 1/2 cup cooked cereal 1 cup [...] Up Care 03/14/2024 17:40:12 With:trauma clinic Address: [facility] 3, second floor, [address] [place] [address] [phone] When:03/25/2024 09:30:00 Comments:Call to schedule/confirm followup appointment for wound check and GHULAM drain removal [facility] 03-18-2024 Note Progress Note-Physic fredy Basic [...] High (03/16/24 06:28:00) RBC: 4.2 E12/L Low (03/16/24:28:00) HGB: 11.7 gm/dL Low (03/16/24:28:00) Hct: 35.3 % Low (03/16/24:28:00) MCV: 84.4 fL (03/16/24:28:00) MCH: 27.9 pg (03/16/24:28:00) MCHC: 33.1 gm/dL (03/16/24:28:00) RDW: 16.3 % High (03/16/24 06:28:00) Platelet: 340 E9/L (03/16/24:28:00) MPV: 7.1 fL (03/16/24:28:00) Neutro Auto: 82.1 % High (03/16/24:28:00) Lymph Auto: 6.3 % Low (03/16/24:28:00) [place] Auto: 11.4 % (03/16/24:28:00) Eos Auto: 0 % (03/16/24::00) Basophil Auto: 0.2 % (03/16/24::00) Neutro Absolute: 13.5 E9/L High (03/16/24:28:00) Lymph Absolute: 1 E9/L (03/16/24::00) [place] Absolute: 1.9 E9/L High (03/16/24::) Eos Absolute: 0 E9/L (03/16/24::00) Basophil Absolute: 0 E9/L (03/16/24:28:00) Glucose Lvl: 279 mg/dL High (03/16/24:28:00) BUN: 17 mg/dL (03/16/24:28:00) Creatinine: 0.8 mg/dL (03/16/24:28:00) eGFR: 109 mL/min/1.73 m2 (03/16/24::00) BUN/Creat Ratio: 21 High (03/16/24:28:00) Sodium Lvl: 137 mmol/L (03/16/24:28:00) Potassium Lvl: 4 mmol/L (03/16/24:28:00) Chloride: 105 mmol/L (03/16/24:28:00) CO2: 22 mmol/L (03/16/24:28:00) AGAP: 14 mEq/L (03/16/24:28:00) Calcium Lvl: 7.7 mg/dL Low (03/16/24:28:00) Magnesium: 1.8 mg/dL (03/16/24:28:00) Glucose Cap: 261 mg/dL High (03/16/24 07:34:00) POC Device SN: [id number] (03/16/24 07:34:00) POC User ID: [id number] (03/16/24 07:34:00) POC Username: POC Username (03/16/24 [...] Reactive leukocytosis post-operati (more content not included)... [facility] Comment on above: Result Comment: Elec [...] 03/16/2024: +flatus, +nausea but no vomiting. on RN EMERGENCY ROOM for pain Subjective No acute events overnight. [...] Lymph Auto: 8.1 % Low (03/17/24 06:09:00) [place] Auto: 9.8 % (03/17/24 06:09:00) Eos Auto: 0.1 % (03/17/24 06:09:00) Basophil Auto: 0.2 % (03/17/24 06:09:00) Neutro Absolute: 12.9 E9/L High (03/17/24 06:09:00) Lymph Absolute: 1.3 E9/L (03/17/24 06:09:00) [place] Absolute: 1.6 E9/L High (03/17/24 06:09:00) Eos [...] mg/dL High (03/17/24 07:58:00) POC Device SN: [id number] (03/17/24 07:58:00) POC User ID: [id number] (03/17/24 07:58:00) POC Username: GREG FOWLER (03/17/24 [...] date 04/16/24 10 (more content not included)... [facility] Comment on above: Result Comment: Elec tronically Signed By: Leandra Wallace PA-C\.br\Date and Time Signed: 03/17/24 11:06 EDT\.br\Electronically Co-Signed By: Silvio Sharp DO\.br\Date and Time Co-Signed: 03/18/24 13:26 EDT 03-17-2024 Evaluation + Plan note Extrac anoop from: Title:Progress/SOAP Note Author:Gato Wallace PA-C Date:03/17/24 1. Ventral hernia (K43.9: Ve ntral [...] advance to regular diet today. - DC RN EMERGENCY ROOM pump. 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 This patient's plan of care was discussed with Trauma/Emergency General Surgery attending, Dr. Sharp Extracted from: Title:ANES Post-operative Note---General Author: Ambrosio Layne Jr, DO Date:03/15/24 Plan Transfer/Discharge: Transfer/Discharge Discharge when meets criteria ( From PACU to floor ). Extracted from: Title:ANES Pre-operative Note 2022 Author:Ambrosio Layne Jr, DO Date:03/15/24 Plan [place] [employer]iologists (ASA) physical status classification: Class IV, E. Anesthetic Preoperative Plan: Anesthesia General. Extracted from: Title:ED Note Author:Comfort BEAN, Baljit Phillip te:03/14/24 1. Ventral hernia (K43.9: Ve ntral [...] Appointments Appointment Date:03/25/2024 09:30:00 AM Scheduled Provider: Location:.Trauma Clinic Appointment Type:Trauma Initial Follow Up (FT) [facility]07-08-2024 NoteInterdisciplinary Note - PT PT Evaluation completed with an [facility] score of 17/24. Pt was able to perform bed mobility with CGA/Min. Pt was able to stand with CGA and able to ambulate 4 small steps. Will trial an AD for more stability. Pt unsafe to return home this date, but will follow daily. Anticipating no PT needs [facility] NoteInterdisciplinary Note - OT OT [facility] six clicks score 14/24 = SNF. However, anticipate quick progress after post op pain has improved and pt may be more appropriate for HH services at time of Dc. Pt requires increased assist w/all Adls and transfers when compared to prior level of function. Inpatient OT services to follow daily to progress w/ function as pain becomes more tolerable.[facility]07-08-2024 NoteProgress Note-Physician Patient: CHRISTIAN SHELBY Age: [...] Type II diabetes mellitus / SNOMED CT 211158451 / Confirmed Smoker / SNOMED CT 955354887 / Confirmed Morbid obesity / SNOMED CT 817465072 / Confirmed Recurrent scrotal infection / SNOMED CT 7435117826 / Confirmed Abdominal hernia / SNOMED CT 39655628 / Confirmed Left groin mass / SNOMED CT 7289635471 / Confirmed Anxiety / SNOMED CT 19767471 / Confirmed Scrotal abscess / SNOMED CT 53028590 / Confirmed Canceled: Orchitis / SNOMED CT 884980792 Canceled: Scrotal infection / SNOMED CT 7230744075 Canceled: Epididymitis / SNOMED CT 94168904 Histories Procedure history: Drainage of scrotal abscess ([id number]) on 03/21/2016 at 40 Years. Tonsillectomy (162709195). Social History Social & Psychosocial Habits Alcohol [...] adequate air exchange. Cardiovascular: Regular rhythm. Plan [place] [employer]hesiologists (ASA) physical status classification: Class IV, E. Anesthetic Preoperative Plan: Anesthesia General.[facility] Comment on above:Result Comment: Electronically Signed By: Ambrosio Layne Jr, DO\.br\Date and Time Signed: 03/16/24 11:14 [id number] NoteProgress Note-Physician Patient: CHRISTIAN SHELBY Age: 48 years Sex: Male : 1975 Associated Diagnoses: None Author: Ambrosio Layne Jr, DO Postoperative Information Postoperative disposition: Postoperative disposition: To PACU. Optimetrix number: Optimetrix number [id number]. Anesthetic utilized: General. Health Status Allergies: Allergic [...] meets criteria ( From PACU to floor ).[facility]:Result Comment: Electronically Signed By: Ambrosio Layne Jr, DO\.jeniffer\Date and Time Signed: 03/16/24 11:14 [id number] NoteProgress Note-Nurse Patient reports vomiting. Nurse responded to room to find patient gagging. Upon inspection of oral cavity, NG tube was found coiled in the back of throat. NG tube removed. Dr. West notified and advised to leave NG tube out at this time. Will continue to monitor.[facility]07-07-2024 NoteProgress Note-Physician GENERAL INFORMATION EMERGENCY GENERAL SURGERY - STAFF PROGRESS NOTE Patient Name: CHRISTIAN SHELBY Admission Date: 03/14/2024 17:37:38 Patient seen and examined on 03/15/2024 08:00 INTERVAL HISTORY/EVENTS Background: CHRISTIAN SHELBY is a 48 Years-old Male with a PMHx of obesity and diabetes. Patient was last seen at [facility] on 03/04 when he was admitted for observation given pain and possible obstruction of hisknown chronic ventral hernia (over 20 years). At that time, the hernia was partially reduced and hewas able to tolerate a diet without issue and discharged home. 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 Resting in bed. [...] 14 gm/dL (03/15/24 06:28:00) Hct: 41.8 % (03/15/24 06:28:00) MCV: 83.2 fL (03/15/24 06:28:00) MCH: 27.9 pg (03/15/24 06:28:00) MCHC: 33.5 gm/dL (03/15/24 06:28:00) RDW: 16.1 % High (03/15/24 06:28:00) Platelet: 312 E9/L (03/15/24 06:28:00) MPV: 7 fL (03/15/24 06:28:00) Neutro Auto: 81.2 % High (03/15/24 06:28:00) Lymph Auto: 12.2 % Low (07/07/24 06:28:00) [place] Auto: 6.2 % (03/15/24:28:00) Eos Auto: 0.2 % (03/15/24::00) Basophil Auto: 0.2 % (03/15/24::00) Neutro Absolute: 10.3 E9/L High (03/15/24:28:00) Lymph Absolute: 1.5 E9/L (03/15/24::00) [place] Absolute: 0.8 E9/L (03/15/24::00) Eos Absolute: 0 E9/L (03/15/24::00) Basophil Absolute: 0 E9/L (03/15/24::00) PT: 10.2 second(s) (03/14/24 18:25:00) INR: 0.91 (03/14/24 18:25:00) PTT: 35.3 second(s) (03/14/24 18:25:00) Glucose Lvl: 215 mg/dL High (03/15/24::00) BUN: 12 mg/dL (03/15/24::00) Creatinine: 0.6 mg/dL (03/15/24::00) eGFR: 119 mL/min/1.73 m2 (03/15/24::00) BUN/Creat Ratio: 20 (03/15/24::00) Sodium Lvl: 135 mmol/L (03/15/24:28:00) Potassium Lvl: 4 mmol/L (03/15/24::00) Chloride: 103 mmol/L (03/15/24::00) CO2: 22 mmol/L (03/15/24::00) AGAP: 14 mEq/L (03/15/24:28:00) Calcium Lvl: 8.3 mg/dL Low (03/15/24:28:00) Alk Phos: 71 Int._Unit/L (03/14/24 18:25:00) ALT: 31 Int._Unit/L (03/14/24 18:25:00) AST: 19 Int._Unit/L (03/14/24 18:25:00) Total Protein: 7.5 gm/dL (03/14/24 18:25:00) Albumin Lvl: 3.8 gm/dL (03/14/24::00) Globulin: 3.7 gm/dL (03/14/24::) A/G Ratio: 1 Low (03/14/24 18:25:00) Bili Total: 0.5 mg/dL (03/14/24::) Bili Direct: 0.1 mg/dL (03/14/24::) Bili Indirect: 0.4 mg/dL (03/14/24:25:) Phosphorus: 2.6 mg/dL (03/15/24::) Lipase Lvl: 10 unit/L Low (03/14/24::) Lactic Acid Lvl: 0.8 mmol/L (03/15/24::) Magnesium: 1.8 mg/dL (03/15/24::) Glucose (more content not included)...[facility]:Result Comment: Electronically Signed By: Jason West MD\.br\Date and Time Signed: 03/15/24 09:33 [id number] NoteProgress Note-Nurse 0230 - This RN communicated [...] and was acknowledged. This RN provides on-going care.[facility]07-06-2024 NoteHistory and Physical EMERGENCY GENERAL SURGERY CONSULT / H&P Patient Name: CHRISTIAN SHELBY Admission Date: 03/14/2024 17:37:38 Chief Complaint: Abdominal pain Referring Physician: Dr. Caceres Patient seen and examined on 03/14/2024 21:00 HISTORY OF PRESENT ILLNESS CHRISTIAN SHELBY is a 48 Years-old Male with a PMHx of obesity and diabetes. Patient was last seen at [facility] on 03/04 when he was admitted for observation given pain and possible obstruction of hisknown chronic ventral hernia (over 20 years). At that time, the hernia was partially reduced and hewas able to tolerate a diet without issue and discharged home. 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, and when he got [...] (03/14/24) MCHC: 34.6 (03/14/24) MCV: 84.0 (03/14/24) [place] Absolute: 0.7 (03/14/24) [place] Auto: 4.8 (03/14/24) MPV: 7.1 (03/14/24) Neutro Absolute: 11.9 (03/14/24) Neutro Auto: 85.8 (03/14/24) Platelet: 314.0 (03/14/24) Potassium Lvl: 4.2 (03/14/24) PT: 10.2 (03/14/24) PTT: 35.3 (03/14/24) RBC: 5.1 (03/14/24) RDW: 15.9 (03/14/24) Sodium Lvl: 135 (03/14/24) Total (more content not included)...[facility]: Result Comment: Electronically Signed By: Brett MARTINEZ, Jason García\.br\Date and Time Signed: 03/14/24 21:53 [id number] NoteProgress Note-Nurse Dr. Caceres aware of patient [facility]07-06-2024 Note Progress Note-Nurse Patient to CT [facility]-2024 NoteProgress Note-Nurse Dr. Ferreira aware patient had a dose of Zofran when arrived and verbalized to give the other dose.[facility]06-27-2024 NoteDischarge Summary DISCHARGE SUMMARY [address] [address] CHRISTIAN SHELBY Date of : 1975 48 [...] FOLLOW UP: With: Address: When: trauma clinic [address] [facility] 3, second floor, [address] [place] [id number] , only if needed Comments: Please call [...] reasonsto return to clinic or to emergency room.[facility] HospitalComment on above: Result Comment: Electronically Signed By: Leandra Wallace PA-C\.br\Date and Time Signed: 03/05/24 09:25 EDT\.br\Electronically Co-Signed By: Esvin Hill MD\.br\Date and Time Co-Signed: 03/05/2413:40 [id number] Hospital Discharge instructions Patient Education 03/05/2024 09:09:24 [...] to keep your urine pale yellow. Take kiiv-hxz-bcfaeur or prescription medicines. Eat foods that are [...] about any changes or new symptoms. Take agaq-ols-qczxyyg and prescription medicines only as told by [...] provider. Document Revised: 04/03/2021 Document Reviewed: 04/03/2021 [employer] Patient Education 2022 [employer]. Follow Up Care 03/04/2024 13:49:43 With:JOAN CARRILLO Address: [address] [place] [address] [phone] [facility] (1) When:7 to 10 days Comments:Call for followup appointmentCall physician if symptoms worsen With:trauma clinic Address: [address] [place] [address] 3, second floor, [address] [place] [address] [phone] When: only if needed Comments:Please call to make follow up appointment if you have questions or concerns. [facility]06-27-2024 NoteHistory and Physical EMERGENCY GENERAL SURGERY [...] (03/04/24) MCHC: 32.9 (03/04/24) MCV: 84.5 (03/04/24) [place] Absolute: 0.6 (03/04/24) [place] Auto: 3.9 (03/04/24) MPV: 7.2 (03/04/24) Neutro Absolute: 13.9 (03/04/24) Neutro Auto: 88.3 (03/04/24) Platelet: 313.0 (03/04/24) Potassium Lvl: 4.3 (03/04/24) RBC: 5.7 (03/04/24) RDW: 15.9 (03/04/24) Sodium Lvl: 133 (03/04/24) Total Protein: 8.2 (03/04/24) WBC: 15.8 (03/04/24) RADIOLOGY -- CT Abdomen/Pelvis w/ Contrast 03/04/24 16:49:06 IMPRESSION: Findings concerning for developing small bowel obstruction secondary to the ventral (more content not included)...[facility] HospitalComment on above:Result Comment: Electronically Signed By: Leandra Wallace PA-C\.br\Date and Time Signed: 03/04/24 17:17 EDT\.br\Electronically Co-Signed By: Liz MARTINEZ, Esvin Pierre\.br\Date and Time Co-Signed: 03/05/2409:18 [id number] Evaluation + Plan noteExtracted from: Title:ED Note Author:Ruiz Uriarte PA-C te:03/04/24 Small bowel obstruction (K56 .609: Unspecified [...] Place in Status UA with Cult Rflx [facility]12-13-2023 NoteMicrobiology PROCEDURE: Blood Culture Charcoal [R1] SOURCE: Blood BODY SITE: Hand R COLLECTED DATE/TIME: 08/13/2023 20:17 EST RECEIVED DATE/TIME: 08/13/2023 21:08 EST START DATE/TIME: 08/13/2023 21:08 EST FREE TEXT SOURCE: Comfort BEAN, Baljit Moyer PA-C, Baljit FINAL REPORTS Final Report [] Verified Date/Time: 08/21/2023 07:00 EST No growth at 7 days. Performing Locations R1: This test was performed at: [facility], [address] [place] [address], [address] [place] [address], Aoznip51 Randolph StreetComment on above:Performed By: #### [id number] ####[address] [id number] NoteMicrobiology PROCEDURE: Blood Culture Charcoal [R1] SOURCE: Blood BODY SITE: Hand L COLLECTED DATE/TIME: 08/13/2023 20:10 EST RECEIVED DATE/TIME: 08/13/2023 21:08 EST START DATE/TIME: 08/13/2023 21:08 EST FREE TEXT SOURCE: Comfort BEAN, Baljit Moyer PA-C, Baljit FINAL REPORTS Final Report [] Verified Date/Time: 08/21/2023 07:00 EST No growth at 7 days. Performing Locations R1: This test was performed at: [address], [address] [place], [place] [address]Comment on above:Performed By: #### [id number] ####[address] [id number] [place] [address] CHRISTIAN SHELBY Date of : 1975 47 [...] FOLLOW UP: With: Address: When: trauma clinic [address] [place] [address] 3, second floor, [address] [place] [address] , only if needed Comments: Please call to make follow up appointment if you have questions or concerns. Our office has placed a referral to the bariatric clinic at [facility], if you do not hear from [facility] please contact this office and we can [...] and referral placed [facility] to help improve his metabolic syndromeSelect Medical Trihealth Rehabilitation HospitalComment on above:Result Comment: Electronically Signed By: Leandra Wallace PA-C\.br\Date and Time Signed: 08/14/23 14:13 EST\.br\Electronically Co-Signed By: Alesha Christensen MD\.br\Date and Time Co-Signed: 08/14/23 17:04 [id number] NoteACUTE CARE SURGERY CONSULT NOTE CHIEF COMPLAINT: [...] Lymph Auto: 10.7 % Low (08/13/23 19:00:00) [place] Auto: 7.5 % (08/13/23 19:00:00) Eos Auto: 0.1 % (08/13/23:00:00) Basophil Auto: 0.1 % (08/13/23:00:00) Neutro Absolute: 12.8 E9/L High (08/13/23:00:00) Lymph Absolute: 1.7 E9/L (08/13/23 19:00:00) [place] Absolute: 1.2 E9/L High (08/13/23:00:00) Eos Absolute: 0 E9/L (08/13/23:00:00) Basophil Absolute: 0 E9/L (08/13/23:00:00) PT: 11.4 second(s) (08/13/23:00:00) INR: 1 (08/13/23:00:00) PTT: 31.3 second(s) (08/13/23:00:00) Glucose Lvl: 321 mg/dL High (08/13/23:00:00) BUN: 12 mg/dL (08/13/23:00:00) Creatinine: 0.9 mg/dL (08/13/23:00:00) eGFR: 106 mL/min/1.73 m2 (08/13/23:00:00) BUN/Creat Ratio: 13 (08/13/23:00:00) Sodium Lvl: 132 mmol/L Low (08/13/23:00:00) Potassium Lvl: 3.9 mmol/L (08/13/23 19:00:00) Chloride: 98 mmol/L Low (08/13/23:00:00) CO2: 17 mmol/L Low (08/13/23 19:00:00) AGAP: 21 mEq/L High (08/13/23 19:00:00) Calcium Lvl: 9.1 mg/dL (08/13/23 19:00:00) Alk Phos: 73 Int._Unit/L (08/13/23 19:00:00) ALT: 36 Int._Unit/L (08/13/23 19:00:00) AST: 28 Int._Unit/L (08/13/23 19:00:00) Total Protein: 8.7 gm/dL High (08/13/23 19:00:00) Albumin Lvl: 4.1 gm/dL (08/13/23 19:00:00) Globulin: 4.6 gm/dL High (08/13/23 19:00:00) A/G Ratio: 0.9 Low (08/13/23 19:00:00) Bili Total: 0.7 mg/dL (08/13/23 19:00:00) Bili Direct: 0.1 mg/dL (08/13/23 19:00:00) Bili Indirect: 0.6 mg/dL (08/13/23 19:00:00) Lipase Lvl: 26 unit/L (08/13/23 19:00:00) Lactic Acid Lvl: 3.2 mmol/L High (08/13/23 19:00:00) Beta HB Qnt: 2.78 mmol/L High (08/13/23 20:09:00) pH Myron: 7.434 High (08/13/23 20:26:00) pCO2 Myron: 31.3 mmHg Low (08/13/23 20:26:00) Sample Type: Venous Draw (08/13/23 20:26:00) Sample Site: OTHER (08/13/23 20:26:00) FIO2 B (08/13/23 20:26:00) Allens Test: Not Applicable (08/13/23 20:26:00) Drawn by: lab (08/13/23 20:26:00) RADIOLOGY: I personally reviewed the images - my summary: CT abdomen/pelvis: large lower abdominal ventral hernia. Some simple fluid within the hernia, but no free air, no thick (more content not included)...[facility] Comment on above:Result Comment: Electronically Signed By: Amparo MARTINEZ, Alesha Wray\.br\Date and Time Signed: 08/13/23 22:31 [id number] Hospital Discharge instructions Patient Education 11/05/2022 10:52:43 [...] 12/02/2001 Document Revised: 12/17/2019 Document Reviewed: 07/22/2017 [employer] Patient Education 2019 [employer] Follow Up Care 10/19/2022 10:02:10 With:KEVAN MARTINEZ, Salvatore Ribeiro, URL Address: [facility] [address], [place] [address]- When: Unknown [facility] evaluation + Plan note No data available for this section [facility] evaluation note* Diagnosis Lung nodule- Primary Other diseases of lung, not elsewhere classified documented in this encounter [facility]Evaluation [facility]* Diagnosis Type 2 diabetes mellitus without complication, without long-term current use of insulin (CMS/HCC)- Primary documented in this encounter [facility] HealthcareEvaluation note* Diagnosis Type 2 diabetes mellitus with other skin complication, without long-term current use of insulin (CMS/HCC)- Primary Hypertriglyceridemia (CMS/HCC) Pure hyperglyceridemia Anxiety and depression (CMS/HCC) Morbid (severe) obesity due to excess calories (E66.01) Body mass index [BMI] 50.0-59.9, adult (Z68.43) Primary hypertension (CMS/HCC) Unspecified essential hypertension Hidradenitis suppurativa Hidradenitis Former tobacco use BMI 50.0-59.9, adult (CMS/HCC) Ventral hernia without obstruction or gangrene Unspecified ventral hernia without mention of obstruction or gangrene Primary hypertension (CMS/HCC)- Primary Unspecified essential hypertension Anxiety and depression (CMS/HCC) Type 2 diabetes mellitus with other skin complication, without long-term current use of insulin (CMS/HCC) S/P hernia repair Other postprocedural status Hypertriglyceridemia (CMS/HCC) Pure hyperglyceridemia Overactive bladder Hypertonicity of bladder Encounter for subsequent annual wellness visit (AWV) in Medicare patient Type 2 diabetes mellitus with other skin complication, without long-term current use of insulin ([facility])- Primary Hypertriglyceridemia ([facility]/HCC) Pure hyperglyceridemia Anxiety and depression ([facility]/HCC) Primary hypertension (CMS/HCC) Unspecified essential hypertension Overactive bladder Hypertonicity of bladder Gastroesophageal reflux disease without esophagitis Esophageal reflux Morbid obesity (CMS/HCC) Morbid obesity BMI 50.0-59.9, adult ([facility]) Hidradenitis suppurativa Hidradenitis Neuropathy Mononeuritis of unspecified site documented in this encounter [facility] HealthcareEvaluation note* Diagnosis Type 2 diabetes mellitus with other skin complication, without long-term current use of insulin ([facility])- Primary Hypertriglyceridemia (CMS/HCC) Pure hyperglyceridemia Anxiety and depression (CMS/HCC) Morbid (severe) obesity due to excess calories (E66.01) Body mass index [BMI] 50.0-59.9, adult (Z68.43) Primary hypertension ([facility]/HCC) Unspecified essential hypertension Hidradenitis suppurativa Hidradenitis Former tobacco use BMI 50.0-59.9, adult ([facility]) Ventral hernia without obstruction or gangrene Unspecified ventral hernia without mention of obstruction or gangrene Primary hypertension (CMS/HCC)- Primary Unspecified essential hypertension Anxiety and depression ([facility]/HCC) Type 2 diabetes mellitus with other skin complication, without long-term current use of insulin (CMS/[facility]) S/P hernia repair Other postprocedural status Hypertriglyceridemia (CMS/[facility]) Pure hyperglyceridemia Overactive bladder Hypertonicity of bladder Encounter for subsequent annual wellness visit (AWV) in Medicare patient Type 2 diabetes mellitus with other skin complication, without long-term current use of insulin ([facility])- Primary Hypertriglyceridemia (CMS/HCC) Pure hyperglyceridemia Anxiety and depression (CMS/HCC) Primary hypertension ([facility]/HCC) Unspecified essential hypertension Overactive bladder Hypertonicity of bladder Gastroesophageal reflux disease without esophagitis Esophageal reflux Morbid obesity ([facility]/HCC) Morbid obesity BMI 50.0-59.9, adult ([facility]) Hidradenitis suppurativa Hidradenitis Neuropathy Mononeuritis of unspecified site Hidradenitis suppurativa- Primary Hidradenitis documented in this encounter [facility] HealthcareEvaluation note* Diagnosis Type 2 diabetes mellitus with other skin complication, without long-term current use of insulin (CMS/HCC)- Primary Hypertriglyceridemia (CMS/HCC) Pure hyperglyceridemia Anxiety and depression (CMS/HCC) Morbid (severe) obesity due to excess calories (E66.01) Body mass index [BMI] 50.0-59.9, adult (Z68.43) Primary hypertension (CMS/HCC) Unspecified essential hypertension Hidradenitis suppurativa Hidradenitis Former tobacco use BMI 50.0-59.9, adult (CMS/HCC) Ventral hernia without obstruction or gangrene Unspecified ventral hernia without mention of obstruction or gangrene Primary hypertension (CMS/HCC)- Primary Unspecified essential hypertension Anxiety and depression (CMS/HCC) Type 2 diabetes mellitus with other skin complication, without long-term current use of insulin (CMS/HCC) S/P hernia repair Other postprocedural status Hypertriglyceridemia (CMS/HCC) Pure hyperglyceridemia Overactive bladder Hypertonicity of bladder Encounter for subsequent annual wellness visit (AWV) in Medicare patient Type 2 diabetes mellitus with other skin complication, without long-term current use of insulin (CMS/HCC)- Primary Hypertriglyceridemia (CMS/HCC) Pure hyperglyceridemia Anxiety and depression (CMS/HCC) Primary hypertension (CMS/HCC) Unspecified essential hypertension Overactive bladder Hypertonicity of bladder Gastroesophageal reflux disease without esophagitis Esophageal reflux Morbid obesity (CMS/HCC) Morbid obesity BMI 50.0-59.9, adult (CMS/HCC) Hidradenitis suppurativa Hidradenitis Neuropathy Mononeuritis of unspecified site Type 2 diabetes mellitus with other skin complication, without long-term current use of insulin (CMS/HCC) documented in this encounter [facility] No data available for this section [facility] Macrotherapy Summary Purpose Family History No Family History [...] Directives Records FoundNo Advanced Directives Records Found Reason for Referral Specialty Diagnoses / Procedures Referred By Contac t Referred To Contact Diagnoses Lung nodule Procedures CT chest w IV contrast Joan Carrillo NP [address] [place] [address] [facility] [address] [place] [address] Referral ID Status Reason Start Date Expiration Date V isits Requested Visits Authorized [id number] Pending Review 06/15/2024 12/12/2024 1 1 Additional Source Comments Patient Care team informatio n (unrecognized section and content) 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 Relationship Specialty Start Date End Date Casey Silva MD [address] [place] [address] PCP - General Family Medicine 09/20/23 Joan Carrillo NP [address] [place] [address] Nurse Practitioner Family Medicine 09/18/23 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 Relationship Specialty Start Date End Date Casey Silva MD [address] [place] [phone] PCP - General Family Medicine 09/20/23 Joan Carrillo NP [address] [place] [phone] Nurse Practitioner Family Medicine 09/18/23 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 Relationship Specialty Start Date End Date Casey Silva MD [address] [place] [phone] PCP - General Family Medicine 09/20/23 Joan Carrillo NP [address] [place] [phone] Nurse Practitioner Family Medicine 09/18/23 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 Relationship Specialty Start Date End Date Casey Silva MD [address] [place] [phone] PCP - General Family Medicine 09/20/23 oJan Carrillo NP [address] [place] [phone] Nurse Practitioner Family Medicine 09/18/23 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 Relationship Specialty Start Date End Date Casey Silva MD [address] [place] [phone] PCP - General Family Medicine 09/20/23 Joan Carrillo NP [address] [place] [phone] Nurse Practitioner Family Medicine 09/18/23 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 Relationship Specialty Start Date End Date Casey Silva MD [address] [place] [phone] PCP - General Family Medicine 09/20/23 Joan Carrillo NP [address] [place] [phone] Nurse Practitioner Family Medicine 09/18/23 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 Relationship Specialty Start Date End Date Casey Silva MD [address] [place] [phone] PCP - General Family Medicine 09/20/23 Joan Carrillo NP [address] [place] [phone] Nurse Practitioner Family Medicine 09/18/23 (unrecognized sect ion and content) No Status [...] and content) DATE CREATED AUTHOR [facility]/31/2022 [facility] DATE CREATED AUTHOR AUTHOR'S ORGANIZ ATION 03/06/2024 [facility] DATE CREATED AUTHOR AUTHOR'S ORGANIZ ATION 03/15/2024 [facility] DATE CREATED AUTHOR AUTHOR'S ORGANIZ ATION 03/16/2024 [facility] DATE CREATED AUTHOR AUTHOR'S ORGANIZ ATION 03/17/2024 [facility] DATE CREATED AUTHOR AUTHOR'S ORGANIZ ATION 03/23/2024 [facility] DATE CREATED AUTHOR AUTHOR'S ORGANIZ ATION 03/24/2024 [facility] DATE CREATED AUTHOR AUTHOR'S ORGANIZ ATION 03/25/2024 [facility] DATE CREATED AUTHOR AUTHOR'S ORGANIZ ATION 03/26/2024 [facility] DATE CREATED AUTHOR AUTHOR'S ORGANIZ ATION 03/29/2024 [facility] DATE CREATED AUTHOR AUTHOR'S ORGANIZ ATION 04/10/2024 [facility] DATE CREATED AUTHOR AUTHOR'S ORGANIZ ATION 04/19/2024 [facility] DATE CREATED AUTHOR AUTHOR'S ORGANIZ ATION 06/27/2024 [facility] DATE CREATED AUTHOR AUTHOR'S ORGANYVETTE ATION 07/02/2024 [place] [facility] Reason for Visit (unrecogniz ed section and content) Reason Onset Date Comments Med Refill 06/05/2024 Reason Onset Date Comments Med Refill 07/13/2024 FOR RECORDS PERTAINING TO PATIENTS WHO ARE [...] BE BASED ON THE PRIMARY CLINICAL RECORDS. [employer] provides no warranty or guarantee of the accuracy or completeness of information in this document.
== END 2024-07-23 07:39 | disposition home or self-care (01) ==
LOC: CT 07:39
PROVIDERS: PCP Nurse Practitioner; Visit Provider Nurse Practitioner
DX: R91.1 Solitary pulmonary nodule (principal)
CPT/HCPCS: 71260; Q9967

== ENCOUNTER 2024-10-13 15:29 | Outpatient (OUT) | payer MEDICARE, SELFPAY ==
--- OUTSIDE RECORDS SUMMARY | 2024-10-13 15:43 | XMS_ITS | CCD ---
Author Organization [facility] Care Team Providers Care Psychotherapist Counselor Name Role Phone Baljit Bryant Primary Care Physician [phone] AICHHOLZ, SAFETY DIRECTOR JOAN Admitting Unavailable AICHHOLZ, SAFETY DIRECTOR JOAN Attending Unavailable AICHHOLZ, SAFETY DIRECTOR JOAN Primary Care Unavailable AICHHOLZ, SAFETY DIRECTOR JOAN Consulting Unavailable ABE, DR LAURA Ribeiro Consulting Unavailable MATHUR ., DR CHASE Admitting Unavailable MATHUR ., DR CHASE Attending Unavailable AICHHOLZ, SAFETY DIRECTOR JOAN Primary Care Unavailable MATHUR ., DR CHASE Consulting Unavailable CINTHIA, DARIUSZ Consulting Unavailable AICHHOLZ, SAFETY DIRECTOR JOAN Admitting Unavailable AICHHOLZ, SAFETY DIRECTOR JOAN Attending Unavailable AICHHOLZ, SAFETY DIRECTOR JOAN Primary Care Unavailable AICHHOLZ, SAFETY DIRECTOR JOAN Consulting Unavailable AICHHOLZ, SAFETY DIRECTOR JOAN Admitting Unavailable AICHHOLZ, SAFETY DIRECTOR JOAN Attending Unavailable AICHHOLZ, SAFETY DIRECTOR JOAN Primary Care Unavailable AICHHOLZ, SAFETY DIRECTOR JOAN Consulting Unavailable AICHHOLZ, SAFETY DIRECTOR JOAN Admitting Unavailable AICHHOLZ, SAFETY DIRECTOR JOAN Attending Unavailable AICHHOLZ, SAFETY DIRECTOR JOAN Primary Care Unavailable AICHHOLZ, SAFETY DIRECTOR JOAN Consulting Unavailable AICHHOLZ, SAFETY DIRECTOR JOAN Admitting Unavailable AICHHOLZ, SAFETY DIRECTOR JOAN Attending Unavailable AICHHOLZ, SAFETY DIRECTOR JOAN Primary Care Unavailable AICHHOLZ, SAFETY DIRECTOR JOAN Consulting Unavailable AICHHOLZ, SAFETY DIRECTOR JOAN Admitting Unavailable AICHHOLZ, SAFETY DIRECTOR JOAN Attending Unavailable AICHHOLZ, SAFETY DIRECTOR JOAN Primary Care Unavailable AICHHOLZ, SAFETY DIRECTOR JOAN Consulting Unavailable AICHHOLZ, JOAN J Primary [...] Aron, DO Silvio Hendrickson Consulting Unavail able Silvio Sharp Consulting Unavailabl e Alesha Christensen Admitting Unavailab Alesha Escalona Attending Unavailab Shannon Rush Attending Unavailable Leandra Wallace Referring Unavailable Demarco Collins Attending Unavailable Demarco Collins Admitting Unavailable Demarco Collins Attending Unavailable MoDemarco negrete Referring Unavailable MD Jason West Admitting Unavailable MD Jason West Attending Unavailable Silvio Sharp Consulting Unavailkiet e Silvio Sharp Consulting Unavailabl e Aron, Silvio Hendrickson Consulting Unavailabl e Aichholz AUT[employer] 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, Joan Unavailable Casey Silva MD Primary Care Provider Demarco Collins Referring Unavailable Demarco Collins Attending Unavailable Demarco Collins Admitting Unavailable AICHHOLZ, JOAN Attending Unavailable AICHHOLZ, JOAN Attending Unavailable AICHHOLZ, JOAN Attending Unavailable AICHHOLZ, JOAN Attending Unavailable ALEXANDRE DANIEL Attending Unavailable AICHHOLZ, JOAN Referring Unavailable Allergies Allergy Classification Reported Allergen(s) Allergy Type Date of Onset Reaction(s) Facility (15 sources) No Known Medication Allergies; Translations: [No Known Medication Allergies] Propensity to adverse reactions (disorder) [facility] Repository Medications Current Medications Medication Drug Class(es) Dates Sig (Normalized) Sig (Original) 0.5 ML tirzepatide 10 MG/ML Auto-Injector [Mounjaro] (2 sources) Start: 11-05-2022 Mounjaro 5 mg/0.5 mL subcutaneous solution Refills(s) 0 Start Date: 11/05/22 Status: Ordered acetaminophen 325 mg oral tablet (1 source) Start: 07-11-2024 take 3 tablets by mouth every six hours acetaminophen 325 mg Tab 975 mg = 3 tab(s), Oral, q6hr, Refills(s) 0 Start Date: 03/19/24 Status: Ordered amLODIPine 10 mg oral tablet (20 sources) Dihydropyridine Calcium Channel Des Start: 08-19-2024 End: 11-17-2024 take 1 tablet by mouth once daily amLODIPine (Norvasc) 10 MG tablet Indications: Primary hypertension (CMS/HCC) Take 1 tablet (10 mg) by mouth Daily 90 tablet 1 08/19/2024 11/17/2024 Active Start: 06-25-2024 End: 11-03-2024 take 1 tablet by mouth once daily amLODIPine (Norvasc) 5 MG tablet Indications: Primary hypertension (CMS/HCC) Take 1 tablet (5 mg) by mouth Daily 90 tablet 1 08/05/2024 08/19/2024 Discontinued (Reorder) amoxicillin 875 mg / clavulanate 125 mg oral tablet (1 source) Penicillin-class Antibacterial Start: 11-05-2022 amoxicillin-clavulanate 875 mg-125 mg Tab Refill(s) 0 Start Date: 11/05/22 Status: Ordered aspirin 81 mg delayed release oral tablet (8 sources) Platelet Aggregation Inhibitor, Nonsteroidal Anti-inflammatory Drug take 1 tablet by mouth once daily aspirin 81 MG EC tablet Take 81 mg by mouth Daily Active atorvastatin 20 mg oral tablet (20 sources) HMG-CoA Reductase Inhibitor Start: 03-26-2024 End: 11-03-2024 take 1 tablet by mouth in the evening atorvastatin (Lipitor) 20 MG tablet Indications: Hypertriglyceridemia (CMS/HCC) Take 1 tablet (20 mg) by mouth in the evening 90 tablet 1 08/05/2024 11/03/2024 Active Start: 08-14-2023 atorvastatin 2 0 mg Tab Daily, Refills(s) 0 Start Date: 08/14/23 Status: Ordered Blood Glucose Monitoring Sup pl (True Metrix Go Glucose Meter) w/Device kit (14 sources) Start: 08-10-2024 End: 08-10-2025 Blood Glucose Monitoring Sup pl (True Metrix Go Glucose Meter) w/Device kit Indications: Type 2 diabetes mellitus without complication, without long-term current use of insulin (CMS/HCC) 1 each by Other route Daily USE 1 TIME DAILY TO CHECK BLOOD SUGAR 1 kit 08/10/2024 08/10/2025 Active Start: 07-27-2024 End: 08-10-2024 Blood Glucose Monitoring Sup [address] (True Metrix Go Glucose Meter) w/Device kit USE 1 TIME DAILY TO CHECK BLOOD SUGAR 07/27/2024 08/10/2024 Discontinued (Reorder) Start: 07-27-2024 Blood Glucose Monitoring Suppl (True Metrix Go Glucose Meter) w/Device kit USE 1 TIME DAILY TO CHECK BLOOD SUGAR 07/27/2024 Active Blood Glucose Monitoring Sup pl (True Metrix Meter) w/Device kit (8 sources) Start: 07-27-2024 End: 07-27-2024 Blood Glucose Monitoring Sup pl (True Metrix Meter) w/Device kit Indications: Type 2 diabetes mellitus without complication, without long-term current use of insulin (CMS/HCC) 1 each by Other route 1 time for 1 dose 1 kit 07/27/2024 07/27/2024 Active Start: 06-16-2024 End: 06-16-2024 Blood Glucose Monitoring [...] Active busPIRone hydrochloride 5 mg oral tablet (20 sources) Start: 03-26-2024 End: 11-03-2024 take 1 tablet by mouth in the morning busPIRone (Buspar) 5 MG tablet Indications: Anxiety and depression (CMS/HCC) Take 1 tablet (5 mg) by mouth in the morning and 1 tablet (5 mg) before bedtime. 180 tablet 1 08/05/2024 11/03/2024 Active Start: 11-01-2022 take 1 mg by mouth twice daily busPIRone 5 mg Tab mg tab(s), Oral, BID, Refills(s) 0 Start Date: 11/01/22 Status: Ordered chlorhexidine gluconate 40 mg/ml medicated liquid soap (3 sources) Start: 09-28-2024 Chlorhexidine Gluconate (Hibiclens) 4 % solution Indications: Hidradenitis suppurativa Use from the neck down in shower then rinse off 2-3x/week 473 mL 11 09/28/2024 Active clindamycin 10 mg/ml topical lotion (3 sources) Lincosamide Antibacterial Start: 09-28-2024 clindamycin (Cleocin T) 1 % lotion Indications: Hidradenitis suppurativa Apply thin layer to affected areas on leg, groin, abdomen, once daily, 30 day supply 60 mL 11 09/28/2024 Active dapagliflozin 10 mg oral tablet (20 sources) Sodium-Glucose Cotransporter 2 Inhibitor Start: 06-25-2024 End: 11-03-2024 take 1 tablet by mouth once daily dapagliflozin (Farxiga) 10 MG Indications: Type 2 diabetes mellitus with other skin complication, without long-term current use of insulin ([facility]) Take 1 tablet (10 mg) by mouth Daily 90 tablet 1 08/05/2024 11/03/2024 Active Start: 03-26-2024 End: 06-25-2024 take 1 [...] day(s), # 14 cap(s), Refills(s) 0, [facility]: [facility][id number], 185.4, cm, 03/14/24 17:53:00 EDT, Height/Length Dosing, 182, kg, 03/14/24 17:53:00 EDT, Weight Dosing Start Date: 03/19/24 Stop Date: 03/26/24 Status: Ordered doxycycline hyclate 100 mg oral tablet (6 sources) Tetracycline-class Drug Start: 08-17-2024 End: 08-31-2024 doxycycline (Vibra-Tabs) 100 MG tablet Indications: Hidradenitis suppurativa Take 1 tablet (100 mg) by mouth in the morning and 1 tablet (100 mg) before bedtime. Do all this for 14 days. Take with a full glass of water and do not lie down for at least 30 minutes after.. 28 tablet 08/17/2024 08/31/2024 Active gabapentin 300 mg oral capsule (20 sources) Anti-epileptic Agent Start: 06-25-2024 End: 11-19-2024 take 1 capsule by mouth at bedtime gabapentin (Neurontin) 300 MG capsule Indications: Neuropathy Take 1 capsule (300 mg) by mouth at bedtime 30 capsule 3 08/21/2024 11/19/2024 Active glimepiride 4 mg oral tablet (20 sources) Sulfonylurea Start: 03-26-2024 End: 11-03-2024 take 1 tablet by mouth before mealtime glimepiride (Amaryl) 4 MG tablet Indications: Type 2 diabetes mellitus with other skin complication, without long-term current use of insulin (CMS/HCC) Take 1 tablet (4 mg) by mouth in the morning. Take before meals. 90 tablet 1 08/05/2024 11/03/2024 Active Start: 11-01-2022 take 1 mg by mouth once daily glimepiride 4 mg Tab mg tab(s), Oral, Daily, Refills(s) 0 Start Date: 11/01/22 Status: Ordered losartan potassium 100 mg oral tablet (20 sources) Angiotensin 2 Receptor Des Start: 03-26-2024 End: 03-26-2025 take 1 tablet by mouth once daily losartan (Cozaar) 100 MG tablet Indications: Primary hypertension (CMS/HCC) Take 1 tablet (100 mg) by mouth Daily 90 tablet 1 08/05/2024 11/03/2024 Active Start: 11-01-2022 take 1 mg by mouth once daily losartan 25 mg Tab mg tab(s), Oral, Daily, Refills(s) 0 Start Date: 11/01/22 Status: Ordered metFORMIN hydrochloride 1000 mg oral tablet (20 sources) Biguanide Start: 03-26-2024 End: 11-03-2024 take 1 tablet by mouth in the morning metFORMIN (Glucophage) 1000 MG tablet Indications: Type 2 diabetes mellitus with other skin complication, without long-term current use of insulin (CMS/HCC) Take 1 tablet (1,000 mg) by mouth in the morning and 1 tablet (1,000 mg) in the evening. Take with meals. 180 tablet 1 08/05/2024 11/03/2024 Active Start: 11-01-2022 take 1 mg by [...] Refills(s) 0 Start Date: 11/05/22 Status: Ordered oxyCODONE hydrochloride 5 mg oral tablet (1 source) Opioid Agonist Start: 03-19-2024 End: 03-22-2024 oxyCODONE 5 mg Tab 5 mg = 1 tab(s), Oral, q6hr, PRN Pain 8-10, X 3 day(s), # 12 tab(s), Refills(s) 0, [facility]: [facility] #[id number], 185.4, cm, 03/14/24 17:53:00 EDT, Height/Length Dosing, 182, kg, 03/14/24 17:53:00 EDT, Weight Dosing Start Date: 03/19/24 Stop Date: 03/22/24 Status: Ordered pantoprazole 20 mg delayed release oral tablet (20 sources) Proton Pump Inhibitor Start: 04-03-2024 End: 11-19-2024 take 1 tablet by mouth in the morning pantoprazole (ProtoNix) 20 MG EC tablet Indications: Gastroesophageal reflux disease without esophagitis Take 1 tablet (20 mg) by mouth in the morning and at noon 180 tablet 1 08/21/2024 11/19/2024 Active Tirzepatide (Mounjaro) 2.5 MG/0.5ML solution auto-injector (4 sources) Start: 08-19-2024 End: 09-16-2024 Tirzepatide (Mounjaro) 2.5 MG/0.5ML solution auto-injector Indications: Type 2 diabetes mellitus without complication, without long-term current use of insulin (CMS/HCC) Inject 2.5 mg under the skin every 7 (seven) days for 28 days 2 mL 08/19/2024 09/16/2024 Active Tirzepatide (Mounjaro) 5 MG/0.5ML solution auto-injector (1 source) Start: 10-04-2024 End: 11-01-2024 Tirzepatide (Mounjaro) 5 MG/0.5ML solution auto-injector Indications: Type 2 diabetes mellitus without complication, without long-term current use of insulin (CMS/HCC) Inject 5 mg under the skin every 7 (seven) days for 28 days 2 mL 1 10/04/2024 11/01/2024 Active 24 hr venlafaxine 75 mg extended release oral capsule (20 sources) Serotonin and Norepinephrine Reuptake Inhibitor Start: 03-26-2024 End: 11-03-2024 take 1 capsule by mouth once daily venlafaxine XR (Effexor XR) 75 MG 24 hr capsule Indications: Anxiety and depression (CMS/HCC) Take 1 capsule (75 mg) by mouth Daily 90 capsule 1 08/05/2024 11/03/2024 Active Start: 11-01-2022 take 1 mg by mouth once daily venlafaxine 75 mg Cap-ER mg cap(s), Oral, Daily, Refills(s) 0 Start Date: 11/01/22 Status: Ordered Completed/Discontinued Medications Medication Drug Class(es) Dates Sig (Normalized) Sig (Original) cephalexin 500 mg oral capsule (6 sources) Cephalosporin Antibacterial Start: 08-05-2024 End: 08-17-2024 take 1 capsule by mouth in the [...] all this for 10 days. 30 capsule 08/05/2024 08/17/2024 Discontinued (Therapy completed) Start: 07-02-2024 End: 07-12-2024 take 1 capsule [...] Active Start: 11-05-2022 take 1 capsule by [facility] every twelve hours Keflex 500 mg Cap 500 mg = 1 cap(s), Oral, q12hr, # 60 caplet(s), Refills(s) 1, [facility]: [facility] #[id number], 185, cm, 11/05/22 10:09:00 EST, Height/Length Dosing, 168, kg, 11/05/22 10:09:00 EST, Weight Dosing Start Date: 11/05/22 Status: Ordered insulin glargine 100 unt/ml injectable solution (2 sources) Insulin Analog Start: 03-17-2024 End: 03-18-2024 insulin glargine 100 units/m L SubQ Emilee 10 mL 10 unit(s) = [...] Date: 03/05/24 Stop Date: 03/04/24 Status: Completed 24 hr oxybutynin chloride 5 mg extended release oral tablet (20 sources) Cholinergic Muscarinic Antagonist Start: 03-26-2024 End: 11-13-2024 take 1 tablet by mouth once daily oxybutynin XL (Ditropan-XL) 5 MG 24 hr tablet Indications: Overactive bladder Take 1 tablet (5 mg) by mouth Daily 90 tablet 1 08/05/2024 08/19/2024 Discontinued (Therapy completed) Start: 08-14-2023 oxybutynin 5 m g ER Tab Daily, Refills(s) 0 Start Date: 08/14/23 Status: Ordered sulfamethoxazole 800 mg / trimethoprim 160 mg oral tablet (18 sources) Dihydrofolate Reductase Inhibitor Antibacterial, Sulfonamide Antimicrobial Start: 01-02-2024 End: 08-17-2024 take 1 tablet by mouth every twelve hours sulfamethoxazole-trimethoprim (Bactrim DS) 800-160 MG per tablet Take 1 tablet by mouth every 12 (twelve) hours 01/02/2024 08/17/2024 Discontinued (Therapy completed) Problems Active Problems Problem Classification Problem Date Documented Da te Episodic/Chronic Anxiety disorders (20 sources) Anxiety; Translations: [Mixed anxiety and depressive disorder] Onset: 4 Resolved: 4 11-05-2022 Chronic Diabetes mellitus without complication (20 sources) Type 2 diabetes mellitus; Translations: [Type 2 diabetes mellitus without complications] Onset: 3 11-01-2022 Chronic Disorders of lipid metabolism (20 sources) Hypertriglyceridemia; Translations: [Pure hyperglyceridemia] Onset: 4 09-24-2023 Chronic Esophageal disorders (20 sources) Gastroesophageal reflux disease without esophagitis; Translations: [Gastro-esophageal reflux disease without esophagitis] Onset: 4 06-25-2024 Chronic Essential hypertension (20 sources) Hypertensive disorder; Translations: [Essential (primary) hypertension] Onset: 4 09-24-2023 Chronic Inflammatory conditions of male genital organs (7 sources) Inflammation of scrotum; Translations: [Inflammatory disorders of scrotum] Onset: 3 Episodic Intestinal obstruction without hernia (1 source) Intestinal obstruction; Translations: [Unspecified intestinal obstruction, unspecified as to partial versus complete obstruction] Onset: 4 Episodic Osteoarthritis (20 sources) Arthritis; Translations: [Unspecified osteoarthritis, unspecified site] Onset: 4 10-10-2023 Chronic Other aftercare (2 sources) Taking high risk medication; Translations: [Other architectural associate (current) drug therapy] 09-28-2024 Episodic Other diseases of bladder and urethra (20 sources) Overactive bladder; Translations: [Overactive bladder] Onset: [...] Onset: 3 Episodic Other nervous system disorders (20 sources) Neuropathy; Translations: [Polyneuropathy, unspecified] Onset: 4 06-25-2024 Chronic Other nutritional; endocrine; and metabolic disorders (20 sources) Morbid obesity; Translations: [Morbid (severe) obesity due to excess calories] Onset: 4 11-01-2022 Chronic Other nutritional; endocrine; and metabolic disorders (1 source) Morbid (severe) obesity due to excess calories; Translations: [MORBID SEVERE OBES D/T EXCESS BRIE] Onset: 2 Chronic Other nutritional; endocrine; and metabolic disorders (20 sources) Body mass index 40+ - severely [...] or gangrene] Onset: 11-05-2022 Resolved: 10-10-2023 Episodic Diabetes mellitus with complications (20 sources) Type 2 diabetes mellitus with other skin complications; Translations: [Diabetes with other specified manifestations, type II or unspecified type, not stated as uncontrolled] Onset: 08-27-2023 Resolved: 06-16-2024 08-27-2023 Chronic Mood disorders (20 sources) Mood disorders Onset: 03-26-2024 03-26-2024 Other hematologic conditions (20 sources) Increased serum protein level; Translations: [Abnormality of plasma protein, unspecified] Onset: 09-24-2023 09-24-2023 Episodic Other lower respiratory disease (20 sources) Nodule of lung; Translations: [Solitary pulmonary nodule] Onset: 09-24-2023 09-24-2023 Episodic Other skin disorders (20 sources) Hidradenitis suppurativa; Translations: [Hidradenitis suppurativa] Onset: 09-24-2023 09-24-2023 Episodic Residual codes; unclassified (20 sources) History of hernia repair; Translations: [Other specified postprocedural states] Onset: 03-26-2024 03-26-2024 Episodic Screening and history of mental health and substance abuse codes (20 sources) Ex-tobacco user; Translations: [Personal history of [...] Finalized Date/Time: 06/30/24 09:52:21 Pt. Name: CHRISTIAN SHELBY /Sex: 1975 Male Med Rec #: [id number] Physician: Demarco Collins MD Financial #: [id number] Pt. Type: O Room/Bed: / Admit/Disch: 06/29/24 [...] Anesthesiologist Scrub - Primary Surgeon - Primary Research Environmental Engineer Time In 06/29/24 07:39:00 06/29/24 07:39:00 06/29/24 07:39:00 Time Out 06/29/24 07:50:00 06/29/24 07:50:00 06/29/24 07:50:00 Procedure EGD(.) EGD(.) EGD(.) Comments Dr. Layne supervising Last Modified By: Isabel WILHELM, Isatu Hall RN, Isatu Mcqueen RN 06/29/24 07:50:24 06/29/24 07:50:24 06/29/24 07:50:24 Entry 4 Case Attendee Isatu Hall RN Role Performed Clam Bed Laborer - Primary Time In 06/29/24 07:39:00 Time [...] and tissue Entry 1 Skin Integrity Intact, [place], Warm, & Skin Abnormality No Dry Outcomes [...] Hall RN (more content not included)... Normal [facility] Discharge Instructionson Discharge Instructions Discharge Instructions HERON CHRISTIAN G :1975 Visit Date:06/29/2024 Inpatient Discharge Instructions Your [...] Date and Time of Follow-up Appt. Where: [address], [address] [place] [address]- [phone] Medications What How Much When Why Instructions [...] of th (more content not included)... Normal [facility] Comment on above: Result Comment: Elec tronically Signed By: Reji WILHELM, Eneida\.br\Date and Time Signed: 06/29/24 08:08 EDT Main OR PACU II Recordon Main OR PACU II Record Main OR PACU II Record PACU Phase II Document Type FT Summary Primary Physician: Demarco Collins MD Finalized Date/Time: 06/29/24 08:11:25 Pt. Name: CHRISTIAN SHELBY/Sex: 1975 Male Med Rec #: [id number] Physician: Demarco Collins MD Financial #: [id number] Pt. Type: O Room/Bed: / Admit/Disch: 06/29/24 [...] Signed By: Eneida Mendoza RN 06/29/24 08:11 [facility] Main OR Preoperative Recordo n 06-29-2024 Main OR Preoperative Record Main OR Preoperative Record Holding Area Document Type FT Summary Primary Physician: Demarco Collins MD Finalized Date/Time: 06/29/24 06:55:57 Pt. Name: CHRISTIAN SHELBYO.B./Sex: 1975 Male Med Rec #: [id number] Physician: Demarco Collins MD Financial #: [id number] Pt. Type: O Room/Bed: / Admit/Disch: 06/29/24 [...] Jo Ann Herbert RN 06/29/24 06:55 Normal [facility] Operative Reporton Operative Report Operative Report Patient: CHRISTIAN SHELBY Age: 48 years Sex: Male : 1975 Associated Diagnoses: None Author: Demarco Collins MD Pre-Procedure Procedure Date 06/29/2024 10:26:00 . Procedure Type: Esophagogastroduodenoscopy. Procedure provider Performed by Mike Collins MD Pre-procedure diagnosis: Surveillance: fu gastritis. ASA Classification: [...] Complications: none. Estimated blood loss: none. Normal [facility] Comment on above: Result Comment: Elec tronically [...] is negative. Procedure history: EGD - esophagogastroduodenoscopy ([id number]) on 06/29/2024 at 48 Years. Colonoscopy ([id number]) on 04/03/2024 at 48 Years. Comments: 04/03/2024 15:52 Flores Tesfaye RN normal Esophagogastroduodenoscopy ([id number]) on 04/03/2024 at 48 Years. Comments: 04/03/2024 15:53 Flores Tesfaye RN duodenitis, antral biiopsy Drainage of scrotal abscess ([id number]) on 03/21/2016 at 40 Years. Tonsillectomy ([id number]). Social History Social & Psychosocial Habits Alcohol [...] Condition: Stable. Course: Progressing as expected. Normal [facility] Comment on above: Result Comment: Elec tronically Signed By: Karina MARTINEZ, Demarco Jack.br\Date and Time Signed: 06/29/24 10:25 EDT ALL CBC WITH AUTO DIFFon BASOPHILS ABSOLUTE AUTO 0.1 [facility] Basophils/100 WBC (Bld) 0.5 % 0.2 - 2.0 % [facility] Eosinophils/100 WBC (Bld) 2.8 % 0.9 - 7.0 % [facility] Erythrocyte distribution width (RBC) [Ratio] 14.4 % 11.0 - 15.0 % [facility] Hematocrit (Bld) [Volume fraction] 42.4 % 42.0 - 54.0 % [facility] Hemoglobin (Bld) [Mass/Vol] 13.1 g/dL Low 14.0 - 18.0 g/dL [facility] IMMATURE GRANULOCYTES ABS AUTO 0.07 High [facility] Immature granulocytes/100 WBC (Bld) 0.6 % High 0.0 - 0.5 % [facility] Interpretation and review of laboratory results Abnormal [facility] LYMPHOCYTES ABSOLUTE AUTO 3.2 [facility] Lymphocytes/100 WBC (Bld) 26.0 % 20.5 - 60.0 % [facility] MCH (RBC) [Entitic mass] 26.3 pg 25.9 - 34.0 pg [facility] MCHC (RBC) [Mass/Vol] 30.9 g/dL 29.9 - 35.2 g/dL [facility] MCV (RBC) [Entitic vol] 85.1 fL 80.0 - 94.0 fL [facility] MONOCYTES ABSOLUTE AUTO 0.9 High [facility] Monocytes/100 WBC (Bld) 7.6 % 1.7 - 12.0 % [facility] Healthcare NEUTROPHILS ABSOLUTE AUTO 7.6 High [facility] Neutrophils/100 WBC (Bld) 62.5 % 43.0 - 75.0 % [facility] Platelet mean volume (Bld) [Entitic vol] 8.7 fL Low 9.5 - 13.5 fL [facility] TBH EO # 0.3 [facility] TBH PLT 329 [facility] TB RBC 4.98 [facility] WBC 12.2 High [facility] Reminderson 04-16-2024 Reminders Reminders From: Joan Cutler MA To: [facility] - Clinical; Sent: 04/16/2024 15:36:46 EDT Show up: 03/04/2034 15:36:00 EDT Subject: Colonoscopy recall 10 years Reminder/Recall Last colonoscopy: 04/03/2024 Repeat: 10 years Reason: Screening colonoscopy Normal [facility] Operative Reporton Operative Report Operative Report Patient: [...] Plan EGD: Course: Progressing as expected. Normal [facility] Comment on above: Result Comment: Elec tronically Signed By: Demarco Collins MD\.br\Date and Time Signed: 04/10/24 07:50 EDT Operative Report Operative Report Patient: CHRISTIAN SHELBY Age: 48 years Sex: Male : 1975 Associated Diagnoses: None Author: Demarco Collins MD Pre-Procedure Procedure Date 04/03/2024 07:46:00 . Procedure Type: Colonoscopy. Procedure provider Performed by Demarco Collins MD. Current history and physical Documented on chart. Colonoscopy ([id number]) on 04/03/2024 at 48 Years. Comments: 04/03/2024 15:52 Flores Tesfaye RN normal Esophagogastroduodenoscopy ([id number]) on 04/03/2024 at 48 Years. Comments: 04/03/2024 15:53 Flores Tesfaye RN duodenitis, antral biiopsy Drainage of scrotal abscess ([id number]) on 03/21/2016 at 40 Years. Tonsillectomy ([id number]).. Past Medical History No active or resolved past medical history items have been selected or recorded.. Family History Entire family history is negative.. Procedure History Colonoscopy ([id number]) on 04/03/2024 at 48 Years. Comments: 04/03/2024 15:52 Flores Tesfaye RN normal Esophagogastroduodenoscopy ([id number]) on 04/03/2024 at 48 Years. Comments: 04/03/2024 15:53 DARRION Goddard RN, Flores duodenitis, antral biiopsy Drainage of scrotal abscess ([id number]) on 03/21/2016 at 40 Years. Tonsillectomy ([id number]).. Colorectal neoplasm risk assessment Average risk. Informed Consent After discussing the rationale, risks and benefits, and alternatives to this procedure, the patient provided signed consent for the procedure. Pre-procedure diagnosis: No prior colonoscopy. Medications (Selected) Prescriptions Prescribed Carafate 1 gram Tab: 1 gm = 1 tab(s), Oral, QID, X 60 day(s), # 240 tab(s), Refills(s) 0, [id number], 185, cm, 04/03/24 12:38:00 EDT, Height/Length Dosing, 182, kg, 04/03/24 12:38:00 EDT, Weight Dosing Pantoprazole [address] Tab: 20 mg = 1 tab(s), Oral, BID, X 60 day(s), # 120 tab(s), Refills(s) 0, [id number], 185, cm, 04/03/24 12:38:00 EDT, Height/Length [...] Return to activities:: After 24 hours. Normal [facility] Comment on above: Result Comment: Elec tronically Signed By: Karina MARTINEZ, Demarco Martins\.br\Date and Time Signed: 04/10/24 07:47 EDT Surgical Pathology Reporton 04-08-2024 Surgical Pathology Report [facility] [address] [place] [address]- Surgical Pathology Report Collected Date/Time: 04/03/2024 15:25 EDT Pathologist: Pola Mcneil MD Received Date/Time: 04/06/2024 09:59 EDT Demarco Collins MD, MD, Demarco Simpson Surgical Pathology Report - [...] is entirely submitted in one cassette. (DC) DC:MCA Microscopic Description A&B: Microscopic examination performed unless gross only specified. The use of one or more reagents in the above tests is regulated as an analyte specific reagent (ASR). The test or tests are ordered following initial H&E microscopic examination. The performance characteristics were determined by the [facility] of [facility]. They have not been cleared or approved by the US Food and Drug Administration. The FDA has determined that such clearance or approval is not necessary. These tests are used for clinical purposes. They should not be regarded as investigational or for research. Appropriate positive and negative controls are performed and are acceptable. Normal [facility] Comment on above: Performed By: #### 4 [id number] #### [facility] [address] [place] [address] Performed By: #### 4 [id number] ####[facility] [id number] [place] [address] Main OR Intraoperative Recor don 04-06-2024 Main OR Intraoperative Record Main OR Intraoperative Record IntraOp Document Type FT Summary Primary Physician: Demarco Collins MD Finalized Date/Time: 04/06/24 08:26:26 Pt. Name: CHRISTIAN SHELBY/Sex: 1975 Male Med Rec #: [id number] Physician: Demarco Collins MD Financial #: [id number] Pt. Type: O Room/Bed: / Admit/Disch: 04/03/24 [...] Anesthesiologist Staff - Other Scrub - Primary Research Environmental Engineer Time In 04/03/24 15:12:00 04/03/24 15:12:00 04/03/24 15:12:00 Time Out 04/03/24 15:44:00 04/03/24 15:44:00 04/03/24 15:44:00 Procedure EGD AND COLONOSCOPY(.) EGD AND COLONOSCOPY(.) EGD AND COLONOSCOPY(.) Comments Dr. Layne supervising help in room Last Modified By: Isabel RN, Isatu Hall RN, Isatu Mcqueen RN 04/03/24 15:44:13 04/03/24 15:44:13 04/03/24 15:44:13 Entry 4 Entry 5 Case Attendee Karina MARTINEZ, Isatu Bennett RN Role Performed Surgeon - Primary Clam Bed Laborer - Primary Time In 04/03/24 15:12:00 04/03/24 15:12:00 Time Out 04/03/24 15:44:00 04/03/24 15:44:00 Procedure EGD AND COLONOSCOPY(.) EGD AND COLONOSCOPY(.) Comments Last Modified By: Isabel WILHELM, Isatu Mcqueen RN 04/03/24 15:44:13 04/03/24 15:44:13 Perioperative Protocols FT [...] Given Participants Nilda Suárez Sparks, Micala E, Mourany MD, Demarco Martins, Isatu [...] and tissue Entry 1 Skin Integrity Intact, [place], Warm, & Skin Abnormality No Dry Outcomes [...] as a (more content not included)... Normal [facility] Discharge Instructionson Discharge Instructions Discharge Instructions [...] screening colonoscopy Duration: 60 Days Pickup at [id number] New sucralfate (Carafate 1 gram Tab) 1 Tablets By Mouth 4 times a day Melena Encounter for screening colonoscopy Duration: 60 Days Pickup at [id number] Unchanged acetaminophen (acetaminophen 325 mg Tab) [...] Cap-ER) By Mouth Every day Pharmacy Information [id number]: [address], [place] [phone] Test Results No qualifying data available. Allergies [...] liquid (barium) (more content not included)... Normal [facility] Comment on above: Result Comment: Elec tronically Signed By: Rupesh WILHELM, Flores\.br\Date and Time Signed: 04/03/24 15:59 EDT Inpatient Patient Summaryon 04-03-2024 Inpatient Patient Summary Inpatient Patient Summary [place] [id number] [facility] Clinical Discharge Instructions PERSON INFORMATION Name: CHRISTIAN SHELBY PHYSICIANS Admitting Physician: Demarco Collins MD Attending Physician: Demarco Collins MD PCP: JOAN CARRILLO CNP Discharge Diagnosis: Comment: PATIENT EDUCATION INFORMATION Instructions: Upper Endoscopy, Adult, Care After; Colonoscopy, Adult, Care After Medication Leaflets: Follow up: Type Location Start [facility] Trauma Subsequent Follow Up (FT) FT.Trauma Clinic 04/03/2024 3:00 PM 04/03/2024 3:15 PM Confirmed MEDICATION LIST New Medications [id number], [address], [place] [id number], [phone] pantoprazole (Pantoprazole [address] Tab) 1 [...] mg Cap-ER) By Mouth every day. Comment: Nahoym [facility] Main OR PACU I Recordon 03-10 Main OR PACU I Record Main OR PACU I Record PACU Phase I Document Type FT Summary Primary Physician: Demarco Collins MD Finalized Date/Time: 04/03/24 16:54:21 Pt. Name: CHRISTIAN SHELBY/Sex: 1975 Male Med Rec #: [id number] Physician: Demarco Collins MD Financial #: [id number] Pt. Type: O Room/Bed: / Admit/Disch: 04/03/24 [...] 16:35 Meenakshi Gerber RN 04/03/24 16:54 Normal [facility] Main OR Preoperative Recordo n 04-03-2024 Main OR Preoperative Record Main OR Preoperative Record Holding Area Document Type FT Summary Primary Physician: Demarco Collins MD Finalized Date/Time: 04/03/24 14:32:23 Pt. Name: CHRISTIAN SHELBY/Sex: 1975 Male Med Rec #: [id number] Physician: Demarco Collins MD Financial #: [id number] Pt. Type: O Room/Bed: / Admit/Disch: 04/03/24 [...] By: Cynthia Allen RN 04/03/24 14:32 Normal [facility] Outpatient Surgery Discharge Instructionon 04-03-2024 Outpatient Surgery Discharge Instruction Outpatient Surgery Discharge Instruction [place] [id number] Patient Discharge Instructions PERSON INFORMATION Name: CHRISTIAN [...] Information: You may receive a survey from [employer] asking you to rate your care experience. Your feedback is important and will help us understand what we do well and how we can improve the quality of care we provide to you, your loved ones and our community. It?s an honor to serve you. Thank you for choosing [facility] HERE ARE THE MEDICATION CHANGES THAT OCCURRED DURING YOUR HOSPITAL STAY New Medications [id number], [address], [place] [phone], [phone] pantoprazole (Pantoprazole [address] Tab) 1 [...] activities are safe for you. ? Take zeku-wyj-pvxjdzd and prescription medicines only as told by [...] care pro (more content not included)... Normal [facility] Trauma Office/Clinic Noteon 03-26-2024 Trauma Office/Clinic Note [...] 03/16/2024: +flatus, +nausea but no vomiting. on REFRIGERATION SERVICE TECHNICIAN for pain 03/17/2024: tolerating diet, +BM 03/18/2024: [...] vital signs did improve on my exam Lenadra Wallace PA-C Trauma Surgery/Surgical Critical Care/Emergency General [...] Use:. Cigar (more content not included)... Normal [facility] Comment on above: Result Comment: Elec tronically Signed By: Leandra Wallace PA-C\.br\Date and Time Signed: 03/25/24 10:23 EDT\.br\Electronically Co-Signed By: Amparo MARTINEZ, Alesha Wray\.br\Date and Time Co-Signed: 03/26/24 14:28 EDT BMPon 03-19-2024 Anion gap [Moles/Vol] 8 mmol/L Normal 6-16 [facility] Comment on above: Performed By: #### 2 [id number] #### [facility] [address] [place] [address] Calcium [Mass/Vol] 7.7 mg/dL Low 8.9-11.1 [facility] Comment on above: Performed By: #### 2 [id number] #### [facility] [address] [place] [address] Chloride [Moles/Vol] 105 mmol/L Normal 101-111 [facility] Comment on above: Performed By: #### 2 029525 #### [facility] [address] [place] [address] CO2 [Moles/Vol] 28 mmol/L Normal 21-31 [facility] Comment on above: Performed By: #### 2 983833 #### [facility] [address] [place] [address] Creatinine [Mass/Vol] 0.5 mg/dL Normal 0.5-1.3 [facility] Comment on above: Performed By: #### 2 797669 #### [facility] [address] [place] [address] Glucose [Mass/Vol] 197 mg/dL Normal 55-199 [facility] Comment on above: Performed By: #### 2 379127 #### [facility] [address] [place] [address] Potassium [Moles/Vol] 3.3 mmol/L Low 3.5-5.3 [facility] Comment on above: Performed By: #### 2 627755 #### [facility] [address] [place] [address] Sodium [Moles/Vol] 138 mmol/L Normal 135-145 [facility] Comment on above: Performed By: #### 2 847241 #### [facility] [address] [place] [address] Urea nitrogen [Mass/Vol] 9 mg/dL Normal 5-21 [facility] Comment on above: Performed By: #### 2 326398 #### [facility] [address] [place] [address] Urea nitrogen/Creatinine [Mass ratio] 18 No Units Normal 10-20 [facility] Comment on above: Performed By: #### 2 039860 #### [facility] [address] [place] [address] CBC w/ Auto Diffon 4 Basophils/100 WBC (Bld) 0.4 % Normal 0.0-2.0 [facility] Comment on above: Performed By: #### 2 610729 #### [facility] [address] [place] [address] Basophils/Leukocytes Auto (Bld) [Pure # fraction] 0.0 E9/L Normal 0.0-0.2 [facility] Comment on above: Performed By: #### 2 463307 #### [facility] [address] [place] [address] Eosinophils (Bld) [#/Vol] 0.1 E9/L Normal 0.0-0.5 [facility] Comment on above: Performed By: #### 2 [id number] #### [facility] [address] [place] [address] Eosinophils/100 WBC (Bld) 1.1 % Normal 0.0-8.0 [facility] Comment on above: Performed By: #### 2 154280 #### [facility] [address] [place] [address] Erythrocyte distribution width (RBC) [Ratio] 15.8 % High 10.9-14.2 [facility] Comment on above: Performed By: #### 2 601105 #### [facility] [address] [place] [address] Hematocrit (Bld) [Volume fraction] 28.8 % Low 37.7-49.0 [facility] Comment on above: Performed By: #### 2 571678 #### [facility] [address] [place] [address] Hemoglobin (Bld) [Mass/Vol] 9.3 g/dL Low 13.5-17.5 [facility] Comment on above: Performed By: #### 2 594321 #### [facility] [address] [place] [address] Lymphocytes (Bld) [#/Vol] 1.6 E9/L Normal 1.0-4.0 [facility] Comment on above: Performed By: #### 2 316023 #### [facility] [address] [place] [address] Lymphocytes/100 WBC (Bld) 13.9 % Low 14.0-50.0 [facility] Comment on above: Performed By: #### 2 616645 #### [facility] [address] [place] [address] MCH (RBC) [Entitic mass] 27.6 pg Normal 27.0-34.0 [facility] Comment on above: Performed By: #### 2 396612 #### [facility] [address] [place] [address] MCHC (RBC) [Mass/Vol] 32.2 g/dL Normal 31.4-36.0 [facility] Comment on above: Performed By: #### 2 314369 #### [facility] [address] [place] [address] MCV (RBC) [Entitic vol] 85.7 fL Normal 80.0-100.0 [facility] Comment on above: Performed By: #### 2 591226 #### [facility] [address] [place] [address] Monocytes (Bld) [#/Vol] 1.0 E9/L Normal 0.2-1.0 [facility] Comment on above: Performed By: #### 2 793420 #### [facility] [address] [place] [address] Neutrophils (Bld) [#/Vol] 8.9 E9/L High 2.0-7.5 [facility] Comment on above: Performed By: #### 2 504023 #### [facility] [address] [place] [address] Neutrophils/100 WBC (Bld) 76.1 % High 36.0-75.0 [facility] Comment on above: Performed By: #### 2 636747 #### [facility] [address] [place] [address] Platelet mean volume (Bld) [Entitic vol] 7.3 fL Normal 6.4-10.8 [facility] Comment on above: Performed By: #### 2 952212 #### [facility] [address] [place] [address] Platelets (Bld) [#/Vol] 357.0 E9/L Normal 150.0-500. 0 [facility] Comment on above: Performed By: #### 2 848546 #### [facility] [address] [place] [address] RBC (Bld) [#/Vol] 3.4 E12/L Low 4.3-5.9 [facility] Comment on above: Performed By: #### 2 444433 #### [facility] [address] [place] [address] WBC corrected for nucl RBC Auto (Bld) [#/Vol] 11.7 E9/L High 4.0-11.0 [facility] Comment on above: Performed By: #### 2 529065 #### [facility] [address] [place] [address] Basophils/100 WBC (Bld) 0.5 % Normal 0.0-2.0 [facility] Comment on above: Performed By: #### 2 432609 #### [facility] [address] [place] [address] Basophils/Leukocytes Auto (Bld) [Pure # fraction] 0.1 E9/L Normal 0.0-0.2 [facility] Comment on above: Performed By: #### 2 752294 #### [facility] [address] [place] [address] Eosinophils (Bld) [#/Vol] 0.2 E9/L Normal 0.0-0.5 [facility] Comment on above: Performed By: #### 2 979789 #### [facility] [address] [place] [address] Eosinophils/100 WBC (Bld) 1.3 % Normal 0.0-8.0 [facility] Comment on above: Performed By: #### 2 340245 #### [facility] [address] [place] [address] Erythrocyte distribution width (RBC) [Ratio] 15.9 % High 10.9-14.2 [facility] Comment on above: Performed By: #### 2 407297 #### [facility] [address] [place] [address] Hematocrit (Bld) [Volume fraction] 28.2 % Low 37.7-49.0 [facility] Comment on above: Performed By: #### 2 285657 #### [facility] [address] [place] [address] Hemoglobin (Bld) [Mass/Vol] 9.3 g/dL Low 13.5-17.5 [facility] Comment on above: Performed By: #### 2 476045 #### [facility] [address] [place] [address] Lymphocytes (Bld) [#/Vol] 1.8 E9/L Normal 1.0-4.0 [facility] Comment on above: Performed By: #### 2 153971 #### [facility] [address] [place] [address] Lymphocytes/100 WBC (Bld) 15.8 % Normal 14.0-50.0 [facility] Comment on above: Performed By: #### 2 874479 #### [facility] [address] [place] [address] MCH (RBC) [Entitic mass] 27.9 pg Normal 27.0-34.0 [facility] Comment on above: Performed By: #### 2 286505 #### [facility] [address] [place] [address] MCHC (RBC) [Mass/Vol] 32.9 g/dL Normal 31.4-36.0 [facility] Comment on above: Performed By: #### 2 196460 #### [facility] [address] [place] [address] MCV (RBC) [Entitic vol] 84.9 fL Normal 80.0-100.0 [facility] Comment on above: Performed By: #### 2 537451 #### [facility] [address] [place] [address] Monocytes (Bld) [#/Vol] 1.0 E9/L Normal 0.2-1.0 [facility] Comment on above: Performed By: #### 2 977438 #### [facility] [address] [place] [address] Neutrophils (Bld) [#/Vol] 8.6 E9/L High 2.0-7.5 [facility] Comment on above: Performed By: #### 2 722140 #### [facility] [address] [place] [address] Neutrophils/100 WBC (Bld) 74.1 % Normal 36.0-75.0 [facility] Comment on above: Performed By: #### 2 813036 #### [facility] [address] [place] [address] Platelet 384.0 E9/L Normal 150.0-500. 0 [facility] Comment on above: Performed By: #### 2 163352 #### [facility] [address] [place] [address] Platelet mean volume (Bld) [Entitic vol] 7.3 fL Normal 6.4-10.8 [facility] Comment on above: Performed By: #### 2 242942 #### [facility] [address] [place] [address] RBC (Bld) [#/Vol] 3.3 E12/L Low 4.3-5.9 [facility] Comment on above: Performed By: #### 2 016522 #### [facility] [address] [place] [address] WBC corrected for nucl RBC Auto (Bld) [#/Vol] 11.6 E9/L High 4.0-11.0 [facility] Comment on above: Performed By: #### 2 617501 #### [facility] [address] [place] [address] Basophils/100 WBC (Bld) 0.5 % Normal 0.0-2.0 [facility] Comment on above: Performed By: #### 2 436435 #### [facility] [address] [place] [address] Basophils/Leukocytes Auto (Bld) [Pure # fraction] 0.0 E9/L Normal 0.0-0.2 [facility] Comment on above: Performed By: #### 2 241563 #### [facility] [address] [place] [address] Eosinophils (Bld) [#/Vol] 0.2 E9/L Normal 0.0-0.5 [facility] Comment on above: Performed By: #### 2 238137 #### [facility] [address] [place] [address] Eosinophils/100 WBC (Bld) 2.2 % Normal 0.0-8.0 [facility] Comment on above: Performed By: #### 2 239771 #### [facility] [address] [place] [address] Erythrocyte distribution width (RBC) [Ratio] 16.2 % High 10.9-14.2 [facility] Comment on above: Performed By: #### 2 956665 #### [facility] [address] [place] [address] Hematocrit (Bld) [Volume fraction] 26.3 % Low 37.7-49.0 [facility] Comment on above: Performed By: #### 2 464820 #### [facility] [address] [place] [address] Hemoglobin (Bld) [Mass/Vol] 8.9 g/dL Low 13.5-17.5 [facility] Comment on above: Performed By: #### 2 918614 #### [facility] [address] [place] [address] Lymphocytes (Bld) [#/Vol] 2.3 E9/L Normal 1.0-4.0 [facility] Comment on above: Performed By: #### 2 521134 #### [facility] [address] [place] [address] Lymphocytes/100 WBC (Bld) 21.8 % Normal 14.0-50.0 [facility] Comment on above: Performed By: #### 2 693568 #### [facility] [address] [place] [address] MCH (RBC) [Entitic mass] 28.6 pg Normal 27.0-34.0 [facility] Comment on above: Performed By: #### 2 362641 #### [facility] [address] [place] [address] MCHC (RBC) [Mass/Vol] 34.0 g/dL Normal 31.4-36.0 [facility] Comment on above: Performed By: #### 2 540519 #### [facility] [address] [place] [address] MCV (RBC) [Entitic vol] 84.3 fL Normal 80.0-100.0 [facility] Comment on above: Performed By: #### 2 418464 #### [facility] [address] [place] [address] Monocytes (Bld) [#/Vol] 0.9 E9/L Normal 0.2-1.0 [facility] Comment on above: Performed By: #### 2 797214 #### [facility] [address] [place] [address] Neutrophils (Bld) [#/Vol] 7.0 E9/L Normal 2.0-7.5 [facility] Comment on above: Performed By: #### 2 597778 #### [facility] [address] [place] [address] Neutrophils/100 WBC (Bld) 66.9 % Normal 36.0-75.0 [facility] Comment on above: Performed By: #### 2 066276 #### [facility] [address] [place] [address] Platelet 349.0 E9/L Normal 150.0-500. 0 [facility] Comment on above: Performed By: #### 2 027072 #### [facility] [address] [place] [address] Platelet mean volume (Bld) [Entitic vol] 7.2 fL Normal 6.4-10.8 [facility] Comment on above: Performed By: #### 2 161276 #### [facility] [address] [place] [address] RBC (Bld) [#/Vol] 3.1 E12/L Low 4.3-5.9 [facility] Comment on above: Performed By: #### 2 843046 #### [facility] [address] [place] [address] WBC corrected for nucl RBC Auto (Bld) [#/Vol] 10.4 E9/L Normal 4.0-11.0 [facility] Comment on above: Performed By: #### 2 978572 #### [facility] [address] [place] [address] CHEMISTRYOrdered By: Lab ROP User on 03-19-2024 Glucose [Mass/Vol] 253 mg/dL High 55 - 99 mg/dL [facility] POC Subsection Comment on above: Result Comment: Isabelle adames RN/ POC Device SN [id number] 1 Invalid Interpretation Code [facility] POC Subsection POC User ID [id number] 1 Invalid Interpretation Code [facility] POC Subsection POC Username JAMISON COTO Invalid Interpretation Code [facility] POC Subsection Glucose [Mass/Vol] 189 mg/dL High 55 - 99 mg/dL [facility] POC Subsection Comment on above: Result Comment: Isabelle adames RN/ POC Device SN [id number] 1 Invalid Interpretation Code [facility] POC Subsection POC User ID [id number] 1 Invalid Interpretation Code [facility] POC Subsection POC Username JAMISON COTO Invalid Interpretation Code [facility] POC Subsection Glucose [Mass/Vol] 202 mg/dL High 55 - 99 mg/dL [facility] POC Subsection Comment on above: Result Comment: Isabelle adames RN/MD POC Device SN [id number] 1 Invalid Interpretation Code [facility] POC Subsection POC User ID [id number] 1 Invalid Interpretation Code [facility] POC Subsection POC Username JAMISON COTO Invalid Interpretation Code [facility] POC Subsection CHEMISTRYOrdered By: SYSTEM SYSTEM on [...] 03-09 Glucose [Mass/Vol] 253 mg/dL High 55-99 [facility] Comment on above: Result Comment: Isabelle MARES Performed By: #### 2 [id number] ####[facility] [address] [place] [address] Glucose [Mass/Vol] 189 mg/dL High 55-99 [facility] Comment on above: Result Comment: Isabelle MARES Performed By: #### 2 [id number] #### [facility] [address] [place] [address] Glucose [Mass/Vol] 202 mg/dL High 55-99 [facility] Comment on above: Result Comment: Isabelle MARES Performed By: #### 2 [id number] #### [facility] [address] [place] [address] HEMATOLOGYOrdered By: SYSTEM SYSTEM on 03-19-2024 Basophils/100 [...] 03-19-2024 Inpatient Clinical Summary Inpatient Clinical Summary [place] [id number] Clinical Summary Person Information: Name: CHRISTIAN SHELBY Age: 48 Years : 1975 Sex: Male PCP: JOAN CARRILLO CNP Marital Status: Phone: [phone] Race: White Ethnicity: Non- or Language: Kosovan Visit Id: Visit Reason: Hernia; Abdominal pain; HERNIA IN LOWER STOMACH AREA Speciality: Acuity: Enc Type: Inpatient Med Service: Medical Arrival: 03/14/2024 17:37:38 Discharge: Dispo Type: Admitted as IP to this Hosp Address: [address] [place] [id number] Provider Notes: Diagnosis: 1:Ventral hernia Problems Active [...] Follow up: With: Address: When: trauma clinic [address] [place] [address] 3, second floor, [address] [place] [id number] 03/25/2024 9:30 AM Comments: Call to schedule/confirm followup appointment for wound check and GHULAM drain removal Type Location Start Finish State Trauma Initial Follow Up (FT) FT.Trauma Clinic 03/25/2024 9:30 AM 03/25/2024 9:45 AM Confirmed Patient Education Information: Reddy - Jackson[place]livett Drainage Tube Care (CUSTOM); Open Hernia Repair, Adult, Care After, Hwyt-[id number]-Gmmf; Diet - Basic Carbohydrate Counting (Custom) Nahomy [facility] Inpatient Patient Summaryon 03-19-2024 Inpatient Patient Summary Inpatient Patient Summary CHRISTIAN SHELBY :1975 Visit Date:03/14/2024 Inpatient Discharge Instructions Your Care Team Admitting Physician - Brett MARTINEZ, Jason García Consulting Physician - Silvio Sharp DO Reason [...] wound check and GHULAM drain removal Where: [address] [place] [address] 3, second floor, [address] [place] [address] [phone] Someone Will Contact You Regarding These Appointments [...] Duration: 7 Days Pickup at [facility] #[id number] 03/19 9 PM New oxycodone (oxyCODONE 5 mg Tab) 1 Tablets By Mouth Every 6 hours as needed for Pain 8-10 Ventral hernia Duration: 3 Days Pickup at [facility] #[id number] NEEDED FOR PAIN LEVEL 8-10 Unchanged atorvastatin [...] 03/20 9 AM Pharmacy Information [facility] #[id number]: [address] [place], [place] [id number] [phone] Test Results CBC BMP WBC: 11.7 E9/L [...] Smoker Type II diabetes mellitus [employer] [place], [place] Neno eRddy MD, FACS DISCHARGE INSTRUCTIONS CARING FOR YOUR THOMAS-MICHAELS DRAINAGE TUBE You have been discharged with a Thomas-Michaels drainage tube. This tube will help healing and reduce the risk of infection by removing fluid through your incision. It is attached to a drain or c (more content not included)... Normal [facility] Inpatient Patient Summary Inpatient Patient Summary [address] [address] Patient Discharge Instructions PERSON INFORMATION Name: CHRISTIAN SHELBY Date of : 1975 Current Date: 03/19/2024 15:04:03 PHYSICIANS Admitting Physician: Brett MARTNIEZ, Jason García Primary Care Physician: JOAN CARRILLO CNP PCP Phone Number: [phone] Comment: Discharge Diagnosis: 1:Ventral hernia Condition at [...] Follow up: With: Address: When: trauma clinic [address] [place] [address] 3, second floor, [address] [place] [address] 03/25/2024 9:30 AM Comments: Call to schedule/confirm [...] YOUR HOSPITAL STAY New Medications [facility][id number], [address], [place] [id number], [phone] docusate (docusate sodium 100 mg Cap) 1 [...] By Mouth every day. Pharmacy Information: Other: [facility] [employer] [facility] Comment: PATIENT EDUCATION INFORMATION Instructions: Martin (more content not included)... N[facility] Interdisciplinary Note - Alexander e Manageron 03-19-2024 Interdisciplinary Note - Business Area Manager Interdisciplinary Note - Business Area Manager CRM to room to discuss DC planning. [...] but there is a DC order in Telephony Engineer faxed DME order down to us that was signed and we did send that into the DME company, still pending the approval [facility] Comment on above: Result Comment: Elec tronically Signed By: Bhavna Mcnair\.br\Date and Time Signed: 03/19/24 15:19 EDT Interdisciplinary Note - Business Area Manager Interdisciplinary Note - Business Area Manager CRM to room to discuss DC planning. [...] updates later this date from Trauma Team [facility] Comment on above: Result Comment: [...] needs identified, full assessment not indicated. Normal [facility] Comment on above: Result Comment: Elec tronically Signed By: Leoncio ROQUE, SILVIA., Sharee\.br\Date and Time Signed: 03/19/24 09:37 EDT Magnesiumon 03-19-2024 Magnesium [Mass/Vol] 1.9 mg/dL Normal 1.3-2.4 [facility] Comment on above: Performed By: #### 2 [id number] #### [facility] [address] [place] [address] Phosphoruson 03-19-2024 Phosphate [Mass/Vol] 2.2 mg/dL Normal 1.9-4.6 [facility] Comment on above: Performed By: #### 2 [id number] #### [facility] [address] [place] [address] eGFRon 03-19-2024 eGFR 125 mL/min/1.73 m2 Normal >=59 [facility] Comment on above: Order Comment: Order added by Discern Expert. Performed By: #### 1 [id number] #### [facility] [address] [place] [address] CBC w/ Auto Diffon 4 Basophils/100 WBC (Bld) 0.7 % Normal 0.0-2.0 [facility] Comment on above: Performed By: #### 2 [id number] #### [facility] [address] [place] [address] Basophils/Leukocytes Auto (Bld) [Pure # fraction] 0.1 E9/L Normal 0.0-0.2 [facility] Comment on above: Performed By: #### 2 [id number] #### [facility] [address] [place] [address] Eosinophils (Bld) [#/Vol] 0.1 E9/L Normal 0.0-0.5 [facility] Comment on above: Performed By: #### 2 306014 #### [facility] [address] [place] [address] Eosinophils/100 WBC (Bld) 0.9 % Normal 0.0-8.0 [facility] Comment on above: Performed By: #### 2 [id number] #### [facility] [address] [place] [address] Erythrocyte distribution width (RBC) [Ratio] 15.6 % High 10.9-14.2 [facility] Comment on above: Performed By: #### 2 448529 #### [facility] [address] [place] [address] Hematocrit (Bld) [Volume fraction] 28.2 % Low 37.7-49.0 [facility] Comment on above: Performed By: #### 2 320807 #### [facility] [address] [place] [address] Hemoglobin (Bld) [Mass/Vol] 9.2 g/dL Low 13.5-17.5 [facility] Comment on above: Performed By: #### 2 625874 #### [facility] [address] [place] [address] Lymphocytes (Bld) [#/Vol] 1.8 E9/L Normal 1.0-4.0 [facility] Comment on above: Performed By: #### 2 331503 #### [facility] [address] [place] [address] Lymphocytes/100 WBC (Bld) 14.3 % Normal 14.0-50.0 [facility] Comment on above: Performed By: #### 2 159542 #### [facility] [address] [place] [address] MCH (RBC) [Entitic mass] 27.9 pg Normal 27.0-34.0 [facility] Comment on above: Performed By: #### 2 360701 #### [facility] [address] [place] [address] MCHC (RBC) [Mass/Vol] 32.7 g/dL Normal 31.4-36.0 [facility] Comment on above: Performed By: #### 2 761181 #### [facility] [address] [place] [address] MCV (RBC) [Entitic vol] 85.2 fL Normal 80.0-100.0 [facility] Comment on above: Performed By: #### 2 692025 #### [facility] [address] [place] [address] Monocytes (Bld) [#/Vol] 1.1 E9/L High 0.2-1.0 [facility] Comment on above: Performed By: #### 2 702305 #### [facility] [address] [place] [address] Neutrophils (Bld) [#/Vol] 9.6 E9/L High 2.0-7.5 [facility] Comment on above: Performed By: #### 2 216611 #### [facility] [address] [place] [address] Neutrophils/100 WBC (Bld) 75.7 % High 36.0-75.0 [facility] Comment on above: Performed By: #### 2 351468 #### [facility] [address] [place] [address] Platelet mean volume (Bld) [Entitic vol] 7.6 fL Normal 6.4-10.8 [facility] Comment on above: Performed By: #### 2 374133 #### [facility] [address] [place] [address] Platelets (Bld) [#/Vol] 318.0 E9/L Normal 150.0-500. 0 [facility] Comment on above: Performed By: #### 2 040865 #### [facility] [address] [place] [address] RBC (Bld) [#/Vol] 3.3 E12/L Low 4.3-5.9 [facility] Comment on above: Performed By: #### 2 664947 #### [facility] [address] [place] [address] WBC corrected for nucl RBC Auto (Bld) [#/Vol] 12.7 E9/L High 4.0-11.0 [facility] Comment on above: Performed By: #### 2 705839 #### [facility] [address] [place] [address] Basophils/100 WBC (Bld) 0.5 % Normal 0.0-2.0 [facility] Comment on above: Performed By: #### 2 344106 #### [facility] [address] [place] [address] Basophils/Leukocytes Auto (Bld) [Pure # fraction] 0.1 E9/L Normal 0.0-0.2 [facility] Comment on above: Performed By: #### 2 981534 #### [facility] [address] [place] [address] Eosinophils (Bld) [#/Vol] 0.1 E9/L Normal 0.0-0.5 [facility] Comment on above: Performed By: #### 2 306532 #### [facility] [address] [place] [address] Eosinophils/100 WBC (Bld) 0.8 % Normal 0.0-8.0 [facility] Comment on above: Performed By: #### 2 003746 #### [facility] [address] [place] [address] Erythrocyte distribution width (RBC) [Ratio] 15.6 % High 10.9-14.2 [facility] Comment on above: Performed By: #### 2 841518 #### [facility] [address] [place] [address] Hematocrit (Bld) [Volume fraction] 27.5 % Low 37.7-49.0 [facility] Comment on above: Performed By: #### 2 924593 #### [facility] [address] [place] [address] Hemoglobin (Bld) [Mass/Vol] 9.0 g/dL Low 13.5-17.5 [facility] Comment on above: Performed By: #### 2 341277 #### [facility] [address] [place] [address] Lymphocytes (Bld) [#/Vol] 1.9 E9/L Normal 1.0-4.0 [facility] Comment on above: Performed By: #### 2 495851 #### [facility] [address] [place] [address] Lymphocytes/100 WBC (Bld) 15.7 % Normal 14.0-50.0 [facility] Comment on above: Performed By: #### 2 107890 #### [facility] [address] [place] [address] MCH (RBC) [Entitic mass] 27.8 pg Normal 27.0-34.0 [facility] Comment on above: Performed By: #### 2 621981 #### [facility] [address] [place] [address] MCHC (RBC) [Mass/Vol] 32.8 g/dL Normal 31.4-36.0 [facility] Comment on above: Performed By: #### 2 025411 #### [facility] [address] [place] [address] MCV (RBC) [Entitic vol] 84.8 fL Normal 80.0-100.0 [facility] Comment on above: Performed By: #### 2 074894 #### [facility] [address] [place] [address] Monocytes (Bld) [#/Vol] 1.0 E9/L Normal 0.2-1.0 [facility] Comment on above: Performed By: #### 2 239169 #### [facility] [address] [place] [address] Neutrophils (Bld) [#/Vol] 9.1 E9/L High 2.0-7.5 [facility] Comment on above: Performed By: #### 2 077575 #### [facility] [address] [place] [address] Neutrophils/100 WBC (Bld) 75.1 % High 36.0-75.0 [facility] Comment on above: Performed By: #### 2 543561 #### [facility] [address] [place] [address] Platelet mean volume (Bld) [Entitic vol] 7.5 fL Normal 6.4-10.8 [facility] Comment on above: Performed By: #### 2 350549 #### [facility] [address] [place] [address] Platelets (Bld) [#/Vol] 306.0 E9/L Normal 150.0-500. 0 [facility] Comment on above: Performed By: #### 2 334418 #### [facility] [address] [place] [address] RBC (Bld) [#/Vol] 3.2 E12/L Low 4.3-5.9 [facility] Comment on above: Performed By: #### 2 965649 #### [facility] [address] [place] [address] WBC corrected for nucl RBC Auto (Bld) [#/Vol] 12.1 E9/L High 4.0-11.0 [facility] Comment on above: Performed By: #### 2 360420 #### [facility] [address] [place] [address] CHEMISTRYOrdered By: SYSTEM SYSTEM on 03-18-2024 Anion [...] 03-09 Glucose [Mass/Vol] 275 mg/dL High 55-99 [facility] Comment on above: Result Comment: Isabelle adames RN/ Performed By: #### 2 [id number] #### [facility] [address] [place] [address] Glucose [Mass/Vol] 231 mg/dL High 55-99 [facility] Comment on above: Result Comment: Tisha didier Meter Performed By: #### 2 [id number] #### [facility] [address] [place] [address] MICRO OTHER TESTSOrdered By: Natalia Burns on 03-18-2024 Occult blood panel (Stl) Positive *ABN* (03/18/24 4:01 PM) Invalid Interpretation Code Negative [facility] [place] Sero Stl Oclt Bldon 03-18-2024 Occult blood panel (Stl) Positive Abnormal Negative [facility] Comment on above: Performed By: #### 2 [id number] #### [facility] [address] [place] [address] BMPon 03-17-2024 Anion gap [Moles/Vol] 12 mmol/L Normal 6-16 [facility] Comment on above: Performed By: #### 2 017420 #### [facility] [address] [place] [address] Calcium [Mass/Vol] 7.8 mg/dL Low 8.9-11.1 [facility] Comment on above: Performed By: #### 2 402089 #### [facility] [address] [place] [address] Chloride [Moles/Vol] 103 mmol/L Normal 101-111 [facility] Comment on above: Performed By: #### 2 338222 #### [facility] [address] [place] [address] CO2 [Moles/Vol] 25 mmol/L Normal 21-31 [facility] Comment on above: Performed By: #### 2 313731 #### [facility] [address] [place] [address] Creatinine [Mass/Vol] 0.7 mg/dL Normal 0.5-1.3 [facility] Comment on above: Performed By: #### 2 128819 #### [facility] [address] [place] [address] Glucose [Mass/Vol] 240 mg/dL High 55-199 [facility] Comment on above: Performed By: #### 2 436447 #### [facility] [address] [place] [address] Potassium [Moles/Vol] 3.8 mmol/L Normal 3.5-5.3 [facility] Comment on above: Performed By: #### 2 400952 #### [facility] [address] [place] [address] Sodium [Moles/Vol] 136 mmol/L Normal 135-145 [facility] Comment on above: Performed By: #### 2 098556 #### [facility] [address] [place] [address] Urea nitrogen [Mass/Vol] 16 mg/dL Normal 5-21 [facility] Comment on above: Performed By: #### 2 119709 #### [facility] [address] [place] [address] Urea nitrogen/Creatinine [Mass ratio] 23 No Units High 10-20 [facility] Comment on above: Performed By: #### 2 724313 #### [facility] [address] [place] [address] CBC w/ Auto Diffon 4 Basophils/100 WBC (Bld) 0.2 % Normal 0.0-2.0 [facility] Comment on above: Performed By: #### 2 260169 #### [facility] [address] [place] [address] Basophils/Leukocytes Auto (Bld) [Pure # fraction] 0.0 E9/L Normal 0.0-0.2 [facility] Comment on above: Performed By: #### 2 307375 #### [facility] [address] [place] [address] Eosinophils (Bld) [#/Vol] 0.0 E9/L Normal 0.0-0.5 [facility] Comment on above: Performed By: #### 2 651777 #### [facility] [address] [place] [address] Eosinophils/100 WBC (Bld) 0.1 % Normal 0.0-8.0 [facility] Comment on above: Performed By: #### 2 285334 #### [facility] [address] [place] [address] Erythrocyte distribution width (RBC) [Ratio] 16.1 % High 10.9-14.2 [facility] Comment on above: Performed By: #### 2 812534 #### [facility] [address] [place] [address] Hematocrit (Bld) [Volume fraction] 30.6 % Low 37.7-49.0 [facility] Comment on above: Performed By: #### 2 515367 #### [facility] [address] [place] [address] Hemoglobin (Bld) [Mass/Vol] 10.1 g/dL Low 13.5-17.5 [facility] Comment on above: Performed By: #### 2 200981 #### [facility] [address] [place] [address] Lymphocytes (Bld) [#/Vol] 1.3 E9/L Normal 1.0-4.0 [facility] Comment on above: Performed By: #### 2 950373 #### [facility] [address] [place] [address] Lymphocytes/100 WBC (Bld) 8.1 % Low 14.0-50.0 [facility] Comment on above: Performed By: #### 2 378805 #### [facility] [address] [place] [address] MCH (RBC) [Entitic mass] 27.8 pg Normal 27.0-34.0 [facility] Comment on above: Performed By: #### 2 314113 #### [facility] [address] [place] [address] MCHC (RBC) [Mass/Vol] 32.8 g/dL Normal 31.4-36.0 [facility] Comment on above: Performed By: #### 2 827143 #### [facility] [address] [place] [address] MCV (RBC) [Entitic vol] 84.7 fL Normal 80.0-100.0 [facility] Comment on above: Performed By: #### 2 351769 #### [facility] [address] [place] [address] Monocytes (Bld) [#/Vol] 1.6 E9/L High 0.2-1.0 [facility] Comment on above: Performed By: #### 2 154168 #### [facility] [address] [place] [address] Neutrophils (Bld) [#/Vol] 12.9 E9/L High 2.0-7.5 [facility] Comment on above: Performed By: #### 2 634899 #### [facility] [address] [place] [address] Neutrophils/100 WBC (Bld) 81.8 % High 36.0-75.0 [facility] Comment on above: Performed By: #### 2 893049 #### [facility] [address] [place] [address] Platelet mean volume (Bld) [Entitic vol] 7.4 fL Normal 6.4-10.8 [facility] Comment on above: Performed By: #### 2 482762 #### [facility] [address] [place] [address] Platelets (Bld) [#/Vol] 290.0 E9/L Normal 150.0-500. 0 [facility] Comment on above: Performed By: #### 2 922264 #### [facility] [address] [place] [address] RBC (Bld) [#/Vol] 3.6 E12/L Low 4.3-5.9 [facility] Comment on above: Performed By: #### 2 408342 #### [facility] [address] [place] [address] WBC corrected for nucl RBC Auto (Bld) [#/Vol] 15.8 E9/L High 4.0-11.0 [facility] Comment on above: Performed By: #### 2 494436 #### [facility] [address] [place] [address] CHEMISTRYOrdered By: SYSTEM SYSTEM on 03-17-2024 Anion [...] POCon Glucose [Mass/Vol] 193 mg/dL High 55-99 [facility] Comment on above: Result Comment: Isabelle adames RN/ Performed By: #### 2 [id number] #### [facility] [address] [place] [address] Inpatient Clinical Summaryon 03-17-2024 Inpatient Clinical Summary Inpatient Clinical Summary [address] [address] Clinical Summary Person Information: Name: CHRISTIAN SHELBY Age: 48 Years : 1975 Sex: Male PCP: JOAN CARRILLO CNP Marital Status: Phone: [phone] Race: White Ethnicity: Non- or Language: Kosovan Visit Id: Visit Reason: Hernia; Abdominal pain; HERNIA IN LOWER STOMACH AREA Speciality: Acuity: Enc Type: Inpatient Med Service: Medical Arrival: 03/14/2024 17:37:38 Discharge: Dispo Type: Admitted as IP to this Hosp Address: [address] [place] [phone] Provider Notes: Diagnosis: 1:Ventral hernia Problems Active [...] Information: Diet - Basic Carbohydrate Counting (Custom) [facility] Inpatient Patient Summaryon 03-17-2024 Inpatient Patient Summary Inpatient Patient Summary [place] [address] Patient Discharge Instructions PERSON INFORMATION Name: CHRISTIAN SHELBY Date of : 1975 Current Date: 03/17/2024 07:59:09 PHYSICIANS Admitting Physician: Jason West MD Primary Care Physician: JOAN CARRILLO CNP PCP Phone Number: [phone] Comment: Discharge Diagnosis: 1:Ventral hernia Condition at [...] to find a nearby participating provider. 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 [facility] Interdisciplinary Note - Alexander e Manageron 03-17-2024 Interdisciplinary Note - Business Area Manager Interdisciplinary Note - Business Area Manager CRM to room to discuss DC planning. [...] per Trauma is a goal of Saturday [facility] Comment on above: Result Comment: Elec tronically Signed By: Bhavna Mcnair\.br\Date and Time Signed: 03/17/24 08:45 EDT Magnesiumon 03-17-2024 Magnesium [Mass/Vol] 2.2 mg/dL Normal 1.3-2.4 Fish jay [facility] Comment on above: Performed By: #### 2 [id number] #### [facility] [address] [place] [address] Main OR Intraoperative Recor don 03-17-2024 Main OR Intraoperative Record Main OR Intraoperative Record IntraOp Document Type FT Summary Primary Physician: Jason West MD Finalized Date/Time: 03/17/24 10:26:36 Pt. Name: CHRISTIAN SHELBY/Sex: 1975 Male Med Rec #: [id number] Physician: Jason West MD Financial #: [id number] Pt. Type: I Room/Bed: [place] [address] Admit/Disch: 03/14/24 17:37:38 - Institution: Case Times [...] Role Performed Anesthesiologist of Surgeon - Primary Clam Bed Laborer - Primary Record Time In 03/15/24 09:58:00 [...] [place] A Hargrove, Bryce Role Performed RN UROLOGY Scrub - Primary Newsroom Intern Time In 03/15/24 09:58:00 03/15/24 09:58:00 03/15/24 [...] Yes Time Out Brett MARTINEZ, Roverto Trinh Given Participants Jr CARNEY, Petra Breen RN, Leo Trejo Alejandro, Chaput, [...] Pre-Care Te (more content not included)... Normal [facility] eGFRon 03-17-2024 eGFR 113 mL/min/1.73 m2 Normal >=59 [facility] Comment on above: Order Comment: Order added by Discern Expert. Performed By: #### 1 [id number] #### [facility] [address] [place] [address] BMPon 03-16-2024 Anion gap [Moles/Vol] 14 mmol/L Normal 6-16 [facility] Comment on above: Performed By: #### 2 939819 #### [facility] [address] [place] [address] Calcium [Mass/Vol] 7.7 mg/dL Low 8.9-11.1 [facility] Comment on above: Performed By: #### 2 403367 #### [facility] [address] [place] [address] Chloride [Moles/Vol] 105 mmol/L Normal 101-111 [facility] Comment on above: Performed By: #### 2 027300 #### [facility] [address] [place] [address] CO2 [Moles/Vol] 22 mmol/L Normal 21-31 [facility] Comment on above: Performed By: #### 2 064875 #### [facility] [address] [place] [address] Creatinine [Mass/Vol] 0.8 mg/dL Normal 0.5-1.3 [facility] Comment on above: Performed By: #### 2 474413 #### [facility] [address] [place] [address] Glucose [Mass/Vol] 279 mg/dL High 55-199 [facility] Comment on above: Performed By: #### 2 549433 #### [facility] [address] [place] [address] Potassium [Moles/Vol] 4.0 mmol/L Normal 3.5-5.3 [facility] Comment on above: Performed By: #### 2 003243 #### [facility] [address] [place] [address] Sodium [Moles/Vol] 137 mmol/L Normal 135-145 [facility] Comment on above: Performed By: #### 2 942356 #### [facility] [address] [place] [address] Urea nitrogen [Mass/Vol] 17 mg/dL Normal 5-21 [facility] Comment on above: Performed By: #### 2 815108 #### [facility] [address] [place] [address] Urea nitrogen/Creatinine [Mass ratio] 21 No Units High 10-20 [facility] Comment on above: Performed By: #### 2 280959 #### [facility] [address] [place] [address] CBC w/ Auto Diffon 4 Basophils/100 WBC (Bld) 0.2 % Normal 0.0-2.0 [facility] Comment on above: Performed By: #### 2 493299 #### [facility] [address] [place] [address] Basophils/Leukocytes Auto (Bld) [Pure # fraction] 0.0 E9/L Normal 0.0-0.2 [facility] Comment on above: Performed By: #### 2 250864 #### [facility] [address] [place] [address] Eosinophils (Bld) [#/Vol] 0.0 E9/L Normal 0.0-0.5 [facility] Comment on above: Performed By: #### 2 167658 #### [facility] [address] [place] [address] Eosinophils/100 WBC (Bld) 0.0 % Normal 0.0-8.0 [facility] Comment on above: Performed By: #### 2 978772 #### [facility] [address] [place] [address] Erythrocyte distribution width (RBC) [Ratio] 16.3 % High 10.9-14.2 [facility] Comment on above: Performed By: #### 2 052966 #### [facility] [address] [place] [address] Hematocrit (Bld) [Volume fraction] 35.3 % Low 37.7-49.0 [facility] Comment on above: Performed By: #### 2 314424 #### [facility] [address] [place] [address] Hemoglobin (Bld) [Mass/Vol] 11.7 g/dL Low 13.5-17.5 [facility] Comment on above: Performed By: #### 2 049809 #### [facility] [address] [place] [address] [place] [address] Lymphocytes (Bld) [#/Vol] 1.0 E9/L Normal 1.0-4.0 [facility] Comment on above: Performed By: #### 2 444187 #### [facility] [address] [place] [address] Lymphocytes/100 WBC (Bld) 6.3 % Low 14.0-50.0 [facility] Comment on above: Performed By: #### 2 926922 #### [facility] [address] [place] [address] MCH (RBC) [Entitic mass] 27.9 pg Normal 27.0-34.0 [facility] Comment on above: Performed By: #### 2 036047 #### [facility] [address] [place] [address] MCHC (RBC) [Mass/Vol] 33.1 g/dL Normal 31.4-36.0 [facility] Comment on above: Performed By: #### 2 515847 #### [facility] [address] [place] [address] MCV (RBC) [Entitic vol] 84.4 fL Normal 80.0-100.0 [facility] Comment on above: Performed By: #### 2 993927 #### [facility] [address] [place] [address] Monocytes (Bld) [#/Vol] 1.9 E9/L High 0.2-1.0 [facility] Comment on above: Performed By: #### 2 035477 #### [facility] [address] [place] [address] Neutrophils (Bld) [#/Vol] 13.5 E9/L High 2.0-7.5 [facility] Comment on above: Performed By: #### 2 568414 #### [facility] [address] [place] [address] Neutrophils/100 WBC (Bld) 82.1 % High 36.0-75.0 [facility] Comment on above: Performed By: #### 2 476072 #### [facility] [address] [place] [address] Platelet 340.0 E9/L Normal 150.0-500. 0 [facility] Comment on above: Performed By: #### 2 796712 #### [facility] [address] [place] [address] Platelet mean volume (Bld) [Entitic vol] 7.1 fL Normal 6.4-10.8 [facility] Comment on above: Performed By: #### 2 508748 #### [facility] [address] [place] [address] RBC (Bld) [#/Vol] 4.2 E12/L Low 4.3-5.9 [facility] Comment on above: Performed By: #### 2 704146 #### [facility] [address] [place] [address] WBC corrected for nucl RBC Auto (Bld) [#/Vol] 16.5 E9/L High 4.0-11.0 [facility] Comment on above: Result Comment: Ekaterina pheral smear review performed. Performed By: #### 2 807447 #### [facility] [address] [place] [address] Capillary Glucose POCon 07-0 Glucose [Mass/Vol] 224 mg/dL High 55-99 [facility] Comment on above: Result Comment: Isabelle adames RN/ Performed By: #### 2 [id number] #### [facility] [address] [place] [address] Glucose [Mass/Vol] 242 mg/dL High 55-99 [facility] Comment on above: Result Comment: Isabelle MARES Performed By: #### 2 [id number] #### [facility] [address] [place] [address] Glucose [Mass/Vol] 253 mg/dL High 55-99 [facility] Comment on above: Result Comment: Isabelle adames RN/ Performed By: #### 2 [id number] #### [facility] [address] [place] [address] Glucose [Mass/Vol] 261 mg/dL High 55-99 [facility] Comment on above: Result Comment: Isabelle adames RN/MD Performed By: #### 2 [id number] #### [facility] [address] [place] [address] ED Note-Physicianon 03-16-20 ED Note-Physician ED Note-Physician [...] Diagnostic Results No qualifying data available. Normal [facility] Comment on above: Result Comment: Elec tronically Signed By: Baljit Moyer PA-C\.br\Date and Time Signed: 03/15/24 08:03 EDT\.br\Electronically Co-Signed By: Demarco Ferreira DO\.br\Date and Time Co-Signed: 03/16/24 07:04 EDT [id number] 03-16-2024 HbA1c (Bld) [Mass fraction] 9.4 % High <=5.9 [facility] Comment on above: Performed By: #### 7 [id number] #### [facility] [address] [place] [address] Inpatient Clinical Summaryon 03-16-2024 Inpatient Clinical Summary Inpatient Clinical Summary [address] [address] Clinical Summary Person Information: Name: CHRISTIAN SHELBY Age: 48 Years : 1975 Sex: Male PCP: JOAN CARRILLO CNP Marital Status: Phone: [phone] Race: White Ethnicity: Non- or Language: Kosovan Visit Id: Visit Reason: Hernia; Abdominal pain; HERNIA IN LOWER STOMACH AREA Speciality: Acuity: Enc Type: Inpatient Med Service: Medical Arrival: 03/14/2024 17:37:38 Discharge: Dispo Type: Admitted as IP to this Hosp Address: [address] [place] [phone] Provider Notes: Diagnosis: 1:Ventral hernia Problems Active [...] Physician: Follow up: Patient Education Information: Normal [facility] Inpatient Patient Summaryon 03-16-2024 Inpatient Patient Summary Inpatient Patient Summary [place] [address] Patient Discharge Instructions PERSON INFORMATION Name: CHRISTIAN SHELBY Date of : 1975 Current Date: 03/16/2024 15:09:18 PHYSICIANS Admitting Physician: Jason West MD Primary Care Physician: JOAN CARRILLO CNP PCP Phone Number: [phone] Comment: Discharge Diagnosis: 1:Ventral hernia Condition at Discharge: ELDON SHELBYANE Jayde has been given the following list [...] to find a nearby participating provider. Comment: HERON Landry DUANE G, have received [...] to serve you. Thank you for choosing [facility] Normal [facility] Interdisciplinary Note - Alexander e Manageron 03-16-2024 Interdisciplinary Note - Business Area Manager Interdisciplinary Note - Business Area Manager CRM to room to discuss DC planning. [...] DC Saturday if he progresses well Normal [facility] Comment on above: Result Comment: Elec tronically Signed By: Bhavna Mcnair\.br\Date and Time Signed: 03/16/24 12:26 EDT Interdisciplinary Note - Business Area Manager Interdisciplinary Note - Business Area Manager CRM to room to discuss DC planning. [...] updated. CRM following DC date TBD Normal [facility] Comment on above: Result Comment: Elec tronically Signed By: Bhavna Mcnair\.br\Date and Time Signed: 03/16/24 08:32 EDT Magnesiumon 03-16-2024 Magnesium [Mass/Vol] 1.8 mg/dL Normal 1.3-2.4 [facility] Comment on above: Performed By: #### 2 [id number] #### [facility] [address] [place] [address] Phosphoruson 03-16-2024 Phosphate [Mass/Vol] 3.7 mg/dL Normal 1.9-4.6 [facility] Comment on above: Performed By: #### 2 [id number] #### [facility] [address] [place] [address] eGFRon 03-16-2024 eGFR 109 mL/min/1.73 m2 Normal >=59 [facility] Comment on above: Order Comment: Order added by Discern Expert. Performed By: #### 1 [id number] #### [facility] [address] [place] [address] ABO/Rhon 03-15-2024 ABO/Rh Positive Invalid Interpretation Code [facility] Comment on above: Performed By: #### 2 [id number] #### [facility] [address] [place] [address] ABO/Rh History Checkon 03-15 ABO/Rh History Check Type verified by second s Normal [facility] Comment on above: Performed By: #### 1 [id number] #### [facility] [address] [place] [address] ABO/Rh Retypeon 03-15-2024 ABO/Rh Retype Interp Positive Invalid Interpretation Code [facility] Comment on above: Performed By: #### 1 [id number] #### [facility] [address] [place] [address] ABSCon 03-15-2024 ABSC Gel Interp Negative Normal [facility] Comment on above: Performed By: #### 1 [id number] #### [facility] [address] [place] [address] BLOOD BANKOrdered By: Tabatha Ren on 03-15-2024 ABO/Rh Interp Positive Invalid Interpretation Code [facility] BB Subsection ABSC Gel Interp Negative (03/15/24 6:28 AM) Normal [facility] BB Subsection BMPon 03-15-2024 Anion gap [Moles/Vol] 14 mmol/L Normal 6-16 [facility] Comment on above: Performed By: #### 2 [id number] #### [facility] [address] [place] [address] Calcium [Mass/Vol] 8.3 mg/dL Low 8.9-11.1 [facility] Comment on above: Performed By: #### 2 [id number] #### [facility] [address] [place] [address] Chloride [Moles/Vol] 103 mmol/L Normal 101-111 [facility] Comment on above: Performed By: #### 2 [id number] #### [facility] [address] [place] [address] CO2 [Moles/Vol] 22 mmol/L Normal 21-31 [facility] Comment on above: Performed By: #### 2 [id number] #### [facility] [address] [place] [address] Creatinine [Mass/Vol] 0.6 mg/dL Normal 0.5-1.3 [facility] Comment on above: Performed By: #### 2 [id number] #### [facility] [address] [place] [address] Glucose [Mass/Vol] 215 mg/dL High 55-199 [facility] Comment on above: Performed By: #### 2 763080 #### [facility] [address] [place] [address] Potassium [Moles/Vol] 4.0 mmol/L Normal 3.5-5.3 [facility] Comment on above: Performed By: #### 2 404921 #### [facility] [address] [place] [address] Sodium [Moles/Vol] 135 mmol/L Normal 135-145 [facility] Comment on above: Performed By: #### 2 148450 #### [facility] [address] [place] [address] Urea nitrogen [Mass/Vol] 12 mg/dL Normal 5-21 [facility] Comment on above: Performed By: #### 2 632103 #### [facility] [address] [place] [address] Urea nitrogen/Creatinine [Mass ratio] 20 No Units Normal 10-20 [facility] Comment on above: Performed By: #### 2 [id number] #### [facility] [address] [place] [address] Blood Bank ID#on 03-15-2024 BBID# [id number] Invalid Interpretation Code [facility] Comment on above: Performed By: #### 1 [id number] #### [facility] [address] [place] [address] CBC w/ Auto Diffon 4 Basophils/100 WBC (Bld) 0.2 % Normal 0.0-2.0 [facility] Comment on above: Performed By: #### 2 350874 #### [facility] [address] [place] [address] Basophils/Leukocytes Auto (Bld) [Pure # fraction] 0.0 E9/L Normal 0.0-0.2 [facility] Comment on above: Performed By: #### 2 [id number] #### [facility] [address] [place] [address] Eosinophils (Bld) [#/Vol] 0.0 E9/L Normal 0.0-0.5 [facility] Comment on above: Performed By: #### 2 380014 #### [facility] [address] [place] [address] Eosinophils/100 WBC (Bld) 0.2 % Normal 0.0-8.0 [facility] Comment on above: Performed By: #### 2 696127 #### [facility] [address] [place] [address] Erythrocyte distribution width (RBC) [Ratio] 16.1 % High 10.9-14.2 [facility] Comment on above: Performed By: #### 2 583994 #### [facility] [address] [place] [address] Hematocrit (Bld) [Volume fraction] 41.8 % Normal 37.7-49.0 [facility] Comment on above: Performed By: #### 2 [id number] #### [facility] [address] [place] [address] Hemoglobin (Bld) [Mass/Vol] 14.0 g/dL Normal 13.5-17.5 [facility] Comment on above: Performed By: #### 2 251596 #### [facility] [address] [place] [address] Lymphocytes (Bld) [#/Vol] 1.5 E9/L Normal 1.0-4.0 [facility] Comment on above: Performed By: #### 2 [id number] #### [facility] [address] [place] [address] Lymphocytes/100 WBC (Bld) 12.2 % Low 14.0-50.0 [facility] Comment on above: Performed By: #### 2 207099 #### [facility] [address] [place] [address] MCH (RBC) [Entitic mass] 27.9 pg Normal 27.0-34.0 [facility] Comment on above: Performed By: #### 2 188088 #### [facility] [address] [place] [address] MCHC (RBC) [Mass/Vol] 33.5 g/dL Normal 31.4-36.0 [facility] Comment on above: Performed By: #### 2 [id number] #### [facility] [address] [place] [address] MCV (RBC) [Entitic vol] 83.2 fL Normal 80.0-100.0 [facility] Comment on above: Performed By: #### 2 419053 #### [facility] [address] [place] [address] Monocytes (Bld) [#/Vol] 0.8 E9/L Normal 0.2-1.0 [facility] Comment on above: Performed By: #### 2 660571 #### [facility] [address] [place] [address] Neutrophils (Bld) [#/Vol] 10.3 E9/L High 2.0-7.5 [facility] Comment on above: Performed By: #### 2 [id number] #### [facility] [address] [place] [address] Neutrophils/100 WBC (Bld) 81.2 % High 36.0-75.0 [facility] Comment on above: Performed By: #### 2 [id number] #### [facility] [address] [place] [address] Platelet 312.0 E9/L Normal 150.0-500. 0 [facility] Comment on above: Performed By: #### 2 391500 #### [facility] [address] [place] [address] Platelet mean volume (Bld) [Entitic vol] 7.0 fL Normal 6.4-10.8 [facility] Comment on above: Performed By: #### 2 402662 #### [facility] [address] [place] [address] RBC (Bld) [#/Vol] 5.0 E12/L Normal 4.3-5.9 [facility] Comment on above: Performed By: #### 2 494414 #### [facility] [address] [place] [address] WBC corrected for nucl RBC Auto (Bld) [#/Vol] 12.7 E9/L High 4.0-11.0 [facility] Comment on above: Performed By: #### 2 765197 #### [facility] [address] [place] [address] CHEMISTRYOrdered By: Sara perez on 03-15-2024 HbA1c (Bld) [Mass fraction] 9.4 % High <=5.9% [facility] ChemAutoSS CHEMISTRYOrdered By: SYSTEM SYSTEM on 03-15-2024 Lactic Acid Lvl 0.8 mmol/L Normal 0.5 - 2.2 mmol/L Remisol Chem Capillary Glucose POCon Glucose [Mass/Vol] 254 mg/dL High 55-99 [facility] Comment on above: Result Comment: Isabelle adames RN/ Performed By: #### 2 [id number] #### [facility] [address] [place] [address] Glucose [Mass/Vol] 243 mg/dL High 55-99 [facility] Comment on above: Result Comment: Isabelle admaes RN/ Performed By: #### 2 [id number] #### [facility] [address] [place] [address] Glucose [Mass/Vol] 261 mg/dL High 55-99 [facility] Comment on above: Performed By: #### 2 [id number] #### [facility] [address] [place] [address] Glucose [Mass/Vol] 218 mg/dL High 55-99 [facility] Comment on above: Result Comment: Isabelle adames RN/ Performed By: #### 2 [id number] #### [facility] [address] [place] [address] Lactic Acidon 03-15-2024 Lactic Acid Lvl 0.8 mmol/L Normal 0.5-2.2 [facility] Comment on above: Performed By: #### 2 050506 #### [facility] [address] [place] [address] Magnesiumon 03-15-2024 Magnesium [Mass/Vol] 1.8 mg/dL Normal 1.3-2.4 [facility] Comment on above: Performed By: #### 2 605508 #### [facility] [address] [place] [address] Main OR Intraoperative Recor don 03-15-2024 Main OR Intraoperative Record Main OR Intraoperative Record IntraOp Document Type FT Summary Primary Physician: Jason West MD Finalized Date/Time: 03/15/24 14:06:28 Pt. Name: CHRISTIAN SHELBY Jayde LópezB./Sex: 1975 Male Med Rec #: [id number] Physician: Salvatore WOOTEN DO Financial #: [id number] Pt. Type: I Room/Bed: [place] [address] Admit/Disch: 03/14/24 17:37:38 - Institution: Case Times [...] Role Performed Anesthesiologist of Surgeon - Primary Clam Bed Laborer - Primary Record Time In 03/15/24 09:58:00 [...] Attendee Abhinav Bailey, Tanmay Ingram Role Performed RN UROLOGY Scrub - Primary Newsroom Intern Time In 03/15/24 09:58:00 03/15/24 09:58:00 03/15/24 [...] Out Brett MARTINEZ, Jason García, Roverto Patel Participants Jr CARNEY, Petra Breen RN, Leo Trejo Alejandro, Chaput, [...] additional precautions (more content not included)... Normal [facility] Main OR PACU I Recordon Main OR PACU I Record Main OR PACU I Record PACU Phase I Document Type FT Summary Primary Physician: Jason West MD Finalized Date/Time: 03/15/24 15:10:31 Pt. Name: CHRISTIAN SHELBY D.O.B./Sex: 1975 Male Med Rec #: [id number] Physician: Salvatore WOOTEN DO Financial #: [id number] Pt. Type: I Room/Bed: [place] [address] Admit/Disch: 03/14/24 17:37:38 - Institution: Case Times [...] By: Zulma Cabezas RN 03/15/24 15:10 Normal [facility] Main OR Preoperative Recordo n 03-15-2024 Main OR Preoperative Record Main OR Preoperative Record Holding Area Document Type FT Summary Primary Physician: Jason West MD Finalized Date/Time: 03/15/24 10:43:16 Pt. Name: CHRISTIAN SHELBY/Sex: 1975 Male Med Rec #: [id number] Physician: Salvatore WOOTEN DO Financial #: [id number] Pt. Type: I Room/Bed: [place] [address] Admit/Disch: 03/14/24 17:37:38 - Institution: Case Times [...] By: Rosaura Lambert RN 03/15/24 10:43 Normal [facility] Operative Reporton 4 Operative Report Operative Report [facility] Acute Care Surgery Operative Report Date of Service: 03/15/24 Preop Diagnosis: Incarcerated ventral hernia Postop Diagnosis: Same Procedure: Exploratory laparotomy, lysis of adhesions, resection of hernia sac, primary repair of ventral hernia, bilateral TAP blocks Surgeon:Jason West MD Research Environmental Engineer: Abhinav Bailey RNFA Anesthesia: General endotracheal EBL: [...] parts of the procedure. Jason West MD [facility] Comment on above: Result Comment: [...] - Discontinue Craft catheter tomorrow - Dilaudid REFRIGERATION SERVICE TECHNICIAN for pain control Jason West MD [facility] Comment on above: Result Comment: Elec tronically Signed By: Jason West MD\.br\Date and Time Signed: 03/15/24 14:35 EDT Phosphoruson 03-15-2024 Phosphate [Mass/Vol] 2.6 mg/dL Normal 1.9-4.6 [facility] Comment on above: Performed By: #### 2 [id number] #### [facility] [address] [place] [address] URINALYSISOrdered By: SYSTEM SYSTEM on 03-15-2024 Bilirubin Ql (U) Negative Normal Negativemg /dL [facility] UA Auto SS Clarity (U) Clear (03/15/24 10:18 AM) Normal Clear [facility] UA Auto SS Color (U) Light-Yellow 1 (03/15/24 10:18 AM) Normal Yellow [facility] UA Auto SS Comment on above: Interpretive Data: M icroscopic readings are only performed on those samples that meet specific criteria set forth by [facility]. Glucose Ql (U) 4+ mg/dL Invalid Interpretation Code Negativemg /dL FT UA Auto SS Hemoglobin Auto test strip (U) [Mass/Vol] Negative Normal Negativemg /dL [facility] UA Auto SS Ketones Auto test strip Ql (U) 3+ mg/dL Invalid Interpretation Code Negativemg /dL [facility]A Auto SS Leukocyte esterase Auto test strip Ql (U) Negative Normal NegativeLe u/uL [facility] UA Auto SS Nitrite Auto test strip Ql (U) Negative Normal Negativemg /dL [facility] UA Auto SS pH (U) 6.0 *NA* [...] Rosaura Lambert on 03-15-2024 UA Spec Desc Venancio (03/15/24 10:18 AM) Normal [facility] UA Auto SS Urinalysis with Microon 07-0 Bilirubin Ql (U) Negative Normal Negative [facility] Comment on above: Performed By: #### 4 [id number] #### [facility] [address] [place] [address] Clarity (U) Clear Normal Clear [facility] Comment on above: Performed By: #### 4 [id number] #### [facility] [address] [place] [address] Color (U) Light-Yellow Normal Yellow [facility] Comment on above: Result Comment: Micr oscopic readings are only performed on those samples that meet specific criteria set forth by [facility]. Performed By: #### 4 [id number] #### [facility] [address] [place] [address] Glucose Ql (U) 4+ mg/dL Abnormal Negative [facility] Comment on above: Performed By: #### 4 [id number] #### [facility] [address] [place] [address] Hemoglobin Auto test strip (U) [Mass/Vol] Negative Normal Negative [facility] Comment on above: Performed By: #### 4 [id number] #### [facility] [address] [place] [address] Ketones Auto test strip Ql (U) 3+ mg/dL Abnormal Negative [facility] Comment on above: Performed By: #### 4 [id number] #### [facility] [address] [place] [address] Leukocyte esterase Auto test strip Ql (U) Negative Normal Negative [facility] Comment on above: Performed By: #### 4 [id number] #### [facility] [address] [place] [address] Nitrite Auto test strip Ql (U) Negative Normal Negative [facility] Comment on above: Performed By: #### 4 [id number] #### [facility] [address] [place] [address] pH (U) 6.0 [pH] Invalid Interpretation Code 5.0-9.0 [facility] Comment on above: Performed By: #### 4 [id number] #### [facility] [address] [place] [address] Protein Ql (U) Trace Abnormal Negative [facility] Comment on above: Performed By: #### 4 [id number] #### [facility] [address] [place] [address] Specific gravity (U) [Rel density] 1.038 Invalid Interpretation Code 1.005-1.03 0 [facility] Comment on above: Performed By: #### 4 [id number] #### [facility] [address] [place] [address] Urobilinogen (U) [Mass/Vol] Negative Normal Negative [facility] Comment on above: Performed By: #### 4 [id number] #### [facility] [address] [place] [address] Type of Urine collection method Craft Normal [facility] Comment on above: Performed By: #### 4 [id number] #### [facility] [address] [place] [address] XR Abdomen 1 Viewon 03-15-20 24 XR [...] mGy = 12.53 DAP = na Normal [facility] eGFRon 03-15-2024 eGFR 119 mL/min/1.73 m2 Normal >=59 [facility] Comment on above: Order Comment: Order added by Discern Expert. Performed By: #### 1 [id number] #### [facility] [address] [place] [address] BLOOD BANKOrdered By: Tabatha Ren on 03-14-2024 ABO/Rh Retype Interp Positive Invalid Interpretation Code [facility] BB Subsection BMPon 03-14-2024 Anion gap [Moles/Vol] 17 mmol/L High 6-16 [facility] Comment on above: Performed By: #### 2 [id number] #### [facility] [address] [place] [address] Calcium [Mass/Vol] 8.4 mg/dL Low 8.9-11.1 [facility] Comment on above: Performed By: #### 2 [id number] #### [facility] [address] [place] [address] Chloride [Moles/Vol] 104 mmol/L Normal 101-111 [facility] Comment on above: Performed By: #### 2 220659 #### [facility] [address] [place] [address] CO2 [Moles/Vol] 18 mmol/L Low 21-31 [facility] Comment on above: Performed By: #### 2 893161 #### [facility] [address] [place] [address] Creatinine [Mass/Vol] 0.6 mg/dL Normal 0.5-1.3 [facility] Comment on above: Performed By: #### 2 842586 #### [facility] [address] [place] [address] Glucose [Mass/Vol] 232 mg/dL High 55-199 [facility] Comment on above: Performed By: #### 2 593501 #### [facility] [address] [place] [address] Potassium [Moles/Vol] 4.2 mmol/L Normal 3.5-5.3 [facility] Comment on above: Performed By: #### 2 [id number] #### [facility] [address] [place] [address] Sodium [Moles/Vol] 135 mmol/L Normal 135-145 [facility] Comment on above: Performed By: #### 2 [id number] #### [facility] [address] [place] [address] Urea nitrogen [Mass/Vol] 14 mg/dL Normal 5-21 [facility] Comment on above: Performed By: #### 2 [id number] #### [facility] [address] [place] [address] Urea nitrogen/Creatinine [Mass ratio] 23 No Units High 10-20 [facility] Comment on above: Performed By: #### 2 [id number] #### [facility] [address] [place] [address] CBC w/ Auto Diffon 4 Basophils/100 WBC (Bld) 0.4 % Normal 0.0-2.0 [facility] Comment on above: Performed By: #### 2 807314 #### [facility] [address] [place] [address] Basophils/Leukocytes Auto (Bld) [Pure # fraction] 0.1 E9/L Normal 0.0-0.2 [facility] Comment on above: Performed By: #### 2 [id number] #### [facility] [address] [place] [address] Eosinophils (Bld) [#/Vol] 0.0 E9/L Normal 0.0-0.5 [facility] Comment on above: Performed By: #### 2 [id number] #### [facility] [address] [place] [address] Eosinophils/100 WBC (Bld) 0.2 % Normal 0.0-8.0 [facility] Comment on above: Performed By: #### 2 [id number] #### [facility] [address] [place] [address] Erythrocyte distribution width (RBC) [Ratio] 15.9 % High 10.9-14.2 [facility] Comment on above: Performed By: #### 2 444458 #### [facility] [address] [place] [address] Hematocrit (Bld) [Volume fraction] 42.7 % Normal 37.7-49.0 [facility] Comment on above: Performed By: #### 2 [id number] #### [facility] [address] [place] [address] [place] [address] Hemoglobin (Bld) [Mass/Vol] 14.8 g/dL Normal 13.5-17.5 [facility] Comment on above: Performed By: #### 2 [id number] #### [facility] [address] [place] [address] Lymphocytes (Bld) [#/Vol] 1.2 E9/L Normal 1.0-4.0 [facility] Comment on above: Performed By: #### 2 122100 #### [facility] [address] [place] [address] Lymphocytes/100 WBC (Bld) 8.8 % Low 14.0-50.0 [facility] Comment on above: Performed By: #### 2 919287 #### [facility] [address] [place] [address] MCH (RBC) [Entitic mass] 29.1 pg Normal 27.0-34.0 [facility] Comment on above: Performed By: #### 2 [id number] #### [facility] [address] [place] [address] MCHC (RBC) [Mass/Vol] 34.6 g/dL Normal 31.4-36.0 [facility] Comment on above: Performed By: #### 2 [id number] #### [facility] [address] [place] [address] MCV (RBC) [Entitic vol] 84.0 fL Normal 80.0-100.0 [facility] Comment on above: Performed By: #### 2 [id number] #### [facility] [address] [place] [address] Monocytes (Bld) [#/Vol] 0.7 E9/L Normal 0.2-1.0 [facility] Comment on above: Performed By: #### 2 257162 #### [facility] [address] [place] [address] Neutrophils (Bld) [#/Vol] 11.9 E9/L High 2.0-7.5 [facility] Comment on above: Performed By: #### 2 [id number] #### [facility] [address] [place] [address] Neutrophils/100 WBC (Bld) 85.8 % High 36.0-75.0 [facility] Comment on above: Performed By: #### 2 097911 #### [facility] [address] [place] [address] Platelet 314.0 E9/L Normal 150.0-500. 0 [facility] Comment on above: Performed By: #### 2 [id number] #### [facility] [address] [place] [address] Platelet mean volume (Bld) [Entitic vol] 7.1 fL Normal 6.4-10.8 [facility] Comment on above: Performed By: #### 2 759011 #### [facility] [address] [place] [address] RBC (Bld) [#/Vol] 5.1 E12/L Normal 4.3-5.9 [facility] Comment on above: Performed By: #### 2 095886 #### [facility] [address] [place] [address] WBC corrected for nucl RBC Auto (Bld) [#/Vol] 13.9 E9/L High 4.0-11.0 [facility] Comment on above: Performed By: #### 2 096393 #### [facility] [address] [place] [address] CHEMISTRYOrdered By: SYSTEM SYSTEM on 03-14-2024 Albumin [...] 35.3 s Normal 25.1 - 36.5 second(s) [facility] Auto Coag Comment on above: Interpretive Data: P keo 15 days - 4 weeks 1 - [...] the same coagulation reagent and instrumentation as [facility]. Currently there are no coagulation studies available worldwide for children to 14 days, and no normal ranges. Heparin therapeutic range (represented by Anti-Factor Xa activity of 0.2 - 0.4 U/mL) corresponds to PTT of 56.6 - 109.0 sec. INR Coag (PPP) [Relative time] 0.91 {INR} Invalid Interpretation Code [facility] Auto Coag Comment on above: Interpretive Data: I NR results are specifically intended to assess patients stabilized on long-term Anticoagulation therapy suggested INR s Less Intensive Anticoagulation 2.0 3.0 Conventional Range 3.0 4.5 PT Coag (PPP) [Time] 10.2 s Normal 9.4 - 1 2.5 second(s) [facility] Auto Coag Comment on above: Interpretive Data: [...] the same coagulation reagent and instrumentation as [facility]. Currently there are no coagulation studies available [...] 300 Contrast amount in ml's: 100 Normal [facility] ED Clinical Summaryon 2023 ED Clinical Summary ED Clinical Summary [place] [id number] ED Clinical Summary Person Information Name: CHRISTIAN SHELBY Dee[facility] Age: 48 Years : 1975 Sex: Male Language: Kosovan PCP: JOAN CARRILLO CNP Marital Status: Phone: [phone] Visit Id: Visit Reason: Hernia; Abdominal pain; HERNIA IN LOWER STOMACH AREA Speciality: Acuity: 2 Enc Type: Inpatient Med Service: Emergency Arrival: 03/14/2024 17:37:38 Discharge: LOS: 000 05:51 Checkin: 03/14/2024 17:37:38 Checkout: 03/14/2024 23:28:55 Dispo Type: Admitted as IP to this [facility] EVENTS: Event Name Event Status Request Date/Time [...] 22:51:16 Patient Care Request 03/14/2024 22:51:16 ADDRESS: [address] [place] [phone] PHYS DOC NOTES: MEDICAL INFORMATION: Prescriptions Given: [...] Instructions: Follow up: DIAGNOSIS: 1:Ventral hernia Normal [facility] ED Note-Physicianon 03-14-20 ED Note-Physician ED Note-Physician [...] to his service for further management. Normal [facility] Comment on above: Result Comment: Elec tronically Signed By: Shaun Caceres DO\.br\Date and Time Signed: 03/14/24 21:22 EDT ED Patient Education Noteon 03-14-2024 ED Patient Education Note ED Patient Education Note Normal [facility] ED Patient Summaryon 024 ED Patient Summary ED Patient Summary [place] [id number] Patient Discharge Instructions Person Information Name: CHRISTIAN SHELBY Age: 48 Years Arrival Date: 03/14/2024 17:37:38 Discharge Diagnosis: 1:Ventral hernia Primary Care Physician: JOAN CARRILLO CNP Provider Information Primary Provider: Demarco Ferreira DO Advanced Rail Switchman:Baljit Moyer PA-C The exam and treatment you received in the Emergency Department were for an urgent problem and are not intended as complete care. It is important that you follow up with a doctor, nurse practitioner, or physician?s assisted living assistant for ongoing care. If your symptoms [...] opioids can be used to help relieve eztnpatz-os-lttvci pain and are often prescribed following a [...] be struggling with addiction, tell your health resident care aide and ask for guidance or call [facility]?S National Helpline at 6-730-298-ZBDS. k Source: [place] Department of Health and Human Services/Center for Disease Control & Prevention [facility] Medications Given: Medicati (more content not included)... Normal [facility] Hep Func Panelon 03-14-2024 Albumin [Mass/Vol] 3.8 g/dL Normal 3.3-5.0 [facility] Comment on above: Performed By: #### 2 [id number] #### [facility] [address] [place] [address] Albumin/Globulin (S) [Mass conc ratio] 1.0 Low 1.1-2.2 [facility] Comment on above: Performed By: #### 2 [id number] #### [facility] [address] [place] [address] ALP [Catalytic activity/Vol] 71 Int._Unit/L Normal 21-98 [facility] Comment on above: Performed By: #### 2 [id number] #### [facility] [address] [place] [address] ALT No additional P-5'-P [Catalytic activity/Vol] 31 Int._Unit/L Normal 6-46 [facility] Comment on above: Performed By: #### 2 [id number] #### [facility] [address] [place] [address] AST [Catalytic activity/Vol] 19 Int._Unit/L Normal 5-43 [facility] Comment on above: Performed By: #### 2 [id number] #### [facility] [address] [place] [address] Bilirubin [Mass/Vol] 0.5 mg/dL Normal 0.0-1.1 [facility] Comment on above: Performed By: #### 2 [id number] #### [facility] [address] [place] [address] Bilirubin.direct [Mass/Vol] 0.1 mg/dL Normal 0.0-0.4 [facility] Comment on above: Performed By: #### 2 [id number] #### [facility] [address] [place] [address] Bilirubin.indirect [Mass or moles/Vol] 0.4 mg/dL Normal 0.1-0.9 [facility] Comment on above: Performed By: #### 2 [id number] #### [facility] [address] [place] [address] Globulin (S) [Mass/Vol] 3.7 g/dL Normal 1.4-4.0 [facility] Comment on above: Performed By: #### 2 [id number] #### [facility] [address] [place] [address] Protein [Mass/Vol] 7.5 g/dL Normal 6.0-7.8 [facility] Comment on above: Performed By: #### 2 [id number] #### [facility] [address] [place] [address] Lactic Acidon 03-14-2024 Lactic Acid Lvl 1.2 mmol/L Normal 0.5-2.2 [facility] Comment on above: Performed By: #### 2 904352 #### [facility] [address] [place] [address] Lipase Levelon 03-14-2024 Lipase [Catalytic activity/Vol] 10 U/L Low 13-58 [facility] Comment on above: Performed By: #### 2 575300 #### [facility] [address] [place] [address] PT & PTTon 03-14-2024 aPTT Coag (PPP) [Time] 35.3 second(s) Normal 25.1-36.5 [facility] Comment on above: Result Comment: Para meter [...] the same coagulation reagent and instrumentation as [facility]. Currently there are no coagulation studies available worldwide for children to 14 days, and no normal ranges. Heparin therapeutic range (represented by Anti-Factor Xa activity of 0.2 - 0.4 U/mL) corresponds to PTT of 56.6 - 109.0 sec. Performed By: #### 1 [id number] #### [facility] [address] [place] [address] INR Coag (PPP) [Relative time] 0.91 {INR} Invalid Interpretation Code [facility] Comment on above: Result Comment: INR results are specifically intended to assess patients stabilized on long-term Anticoagulation therapy suggested INR?s ?Less Intensive Anticoagulation? 2.0 ? 3.0 Conventional Range 3.0 ? 4.5 Performed By: #### 1 [id number] #### [facility] [address] [place] [address] PT Coag (PPP) [Time] 10.2 second(s) Normal 9.4-12.5 [facility] Comment on above: Result Comment: 15 d [...] the same coagulation reagent and instrumentation as [facility]. Currently there are no coagulation studies available worldwide for children to 14 days, and no normal ranges. Performed By: #### 1 [id number] #### [facility] [address] [place] [address] eGFRon 03-14-2024 eGFR 119 mL/min/1.73 m2 Normal >=59 [facility] Comment on above: Order Comment: Order added by Discern Expert. Performed By: #### 1 [id number] #### [facility] [address] [place] [address] BMPon 03-05-2024 Anion gap [Moles/Vol] 12 mmol/L Normal 6-16 [facility] Comment on above: Performed By: #### 2 678209 #### [facility] [address] [place] [address] Calcium [Mass/Vol] 7.8 mg/dL Low 8.9-11.1 [facility] Comment on above: Performed By: #### 2 830316 #### [facility] [address] [place] [address] Chloride [Moles/Vol] 105 mmol/L Normal 101-111 [facility] Comment on above: Performed By: #### 2 716686 #### [facility] [address] [place] [address] CO2 [Moles/Vol] 23 mmol/L Normal 21-31 [facility] Comment on above: Performed By: #### 2 132675 #### [facility] [address] [place] [address] Creatinine [Mass/Vol] 0.6 mg/dL Normal 0.5-1.3 [facility] Comment on above: Performed By: #### 2 879332 #### [facility] [address] [place] [address] Glucose [Mass/Vol] 183 mg/dL Normal 55-199 [facility] Comment on above: Performed By: #### 2 653885 #### [facility] [address] [place] [address] Potassium [Moles/Vol] 3.6 mmol/L Normal 3.5-5.3 [facility] Comment on above: Performed By: #### 2 149213 #### [facility] [address] [place] [address] Sodium [Moles/Vol] 136 mmol/L Normal 135-145 [facility] Comment on above: Performed By: #### 2 628938 #### [facility] [address] [place] [address] Urea nitrogen [Mass/Vol] 12 mg/dL Normal 5-21 [facility] Comment on above: Performed By: #### 2 076030 #### [facility] [address] [place] [address] Urea nitrogen/Creatinine [Mass ratio] 20 No Units Normal 10-20 [facility] Comment on above: Performed By: #### 2 [id number] #### [facility] [address] [place] [address] Bld Gas Venon 03-05-2024 Allens Test Not Applicable Normal [facility] Comment on above: Performed By: #### 1 [id number] #### [facility] [address] [place] [address] Drawn by lab Invalid Interpretation Code [facility] Comment on above: Performed By: #### 1 [id number] #### [facility] [address] [place] [address] Sample Site OTHER Normal [facility] Comment on above: Performed By: #### 1 [id number] #### [facility] [address] [place] [address] CBC w/ Auto Diffon 4 Basophils/100 WBC (Bld) 0.3 % Normal 0.0-2.0 [facility] Comment on above: Performed By: #### 2 836957 #### [facility] [address] [place] [address] Basophils/Leukocytes Auto (Bld) [Pure # fraction] 0.0 E9/L Normal 0.0-0.2 [facility] Comment on above: Performed By: #### 2 394136 #### [facility] [address] [place] [address] Eosinophils (Bld) [#/Vol] 0.1 E9/L Normal 0.0-0.5 [facility] Comment on above: Performed By: #### 2 620472 #### [facility] [address] [place] [address] Eosinophils/100 WBC (Bld) 1.1 % Normal 0.0-8.0 [facility] Comment on above: Performed By: #### 2 494503 #### [facility] [address] [place] [address] Erythrocyte distribution width (RBC) [Ratio] 16.2 % High 10.9-14.2 [facility] Comment on above: Performed By: #### 2 235605 #### [facility] [address] [place] [address] Hematocrit (Bld) [Volume fraction] 40.9 % Normal 37.7-49.0 [facility] Comment on above: Performed By: #### 2 741549 #### [facility] [address] [place] [address] Hemoglobin (Bld) [Mass/Vol] 13.3 g/dL Low 13.5-17.5 [facility] Comment on above: Performed By: #### 2 367139 #### [facility] [address] [place] [address] Lymphocytes (Bld) [#/Vol] 2.6 E9/L Normal 1.0-4.0 [facility] Comment on above: Performed By: #### 2 316214 #### [facility] [address] [place] [address] Lymphocytes/100 WBC (Bld) 22.4 % Normal 14.0-50.0 [facility] Comment on above: Performed By: #### 2 283709 #### [facility] [address] [place] [address] MCH (RBC) [Entitic mass] 27.5 pg Normal 27.0-34.0 [facility] Comment on above: Performed By: #### 2 534498 #### [facility] [address] [place] [address] MCHC (RBC) [Mass/Vol] 32.5 g/dL Normal 31.4-36.0 [facility] Comment on above: Performed By: #### 2 601472 #### [facility] [address] [place] [address] MCV (RBC) [Entitic vol] 84.5 fL Normal 80.0-100.0 [facility] Comment on above: Performed By: #### 2 730578 #### [facility] [address] [place] [address] Monocytes (Bld) [#/Vol] 1.1 E9/L High 0.2-1.0 [facility] Comment on above: Performed By: #### 2 466918 #### [facility] [address] [place] [address] Neutrophils (Bld) [#/Vol] 7.7 E9/L High 2.0-7.5 [facility] Comment on above: Performed By: #### 2 757472 #### [facility] [address] [place] [address] Neutrophils/100 WBC (Bld) 66.8 % Normal 36.0-75.0 [facility] Comment on above: Performed By: #### 2 045273 #### [facility] [address] [place] [address] Platelet mean volume (Bld) [Entitic vol] 7.1 fL Normal 6.4-10.8 [facility] Comment on above: Performed By: #### 2 684647 #### [facility] [address] [place] [address] Platelets (Bld) [#/Vol] 296.0 E9/L Normal 150.0-500. 0 [facility] Comment on above: Performed By: #### 2 155472 #### [facility] [address] [place] [address] RBC (Bld) [#/Vol] 4.8 E12/L Normal 4.3-5.9 [facility] Comment on above: Performed By: #### 2 063793 #### [facility] [address] [place] [address] WBC corrected for nucl RBC Auto (Bld) [#/Vol] 11.5 E9/L High 4.0-11.0 [facility] Comment on above: Performed By: #### 2 122416 #### [facility] [address] [place] [address] CHEMISTRYOrdered By: SYSTEM SYSTEM on 03-05-2024 Anion [...] 165 mg/dL High 55 - 99 mg/dL [facility] POC Subsection Comment on above: Result Comment: Isabelle MARES POC Device SN [id number] 1 Invalid Interpretation Code [facility] POC Subsection POC User ID [id number] 1 Invalid Interpretation Code [facility] POC Subsection POC Username SIR DEMARCO CARR Invalid Interpretation Code [facility] POC Subsection Capillary Glucose POCon 02-08 Glucose [Mass/Vol] 165 mg/dL High 55-99 [facility] Comment on above: Result Comment: Isabelle MARES Performed By: #### 2 [id number] #### [facility] [address] [place] [address] Discharge Note-Nursingon Discharge Note-Nursing Discharge Note-Nursing Pt provided discharge education. Pt denies any questions at this time. IV removed and pt transferred to patient pickup via wheelchair. Normal [facility] HEMATOLOGYOrdered By: SYSTEM SYSTEM on 03-05-2024 Basophils/100 [...] 03-05-2024 Inpatient Clinical Summary Inpatient Clinical Summary [address] [address] Clinical Summary Person Information: Name: CHRISTIAN SHELBY Age: 48 Years : 1975 Sex: Male PCP: JOAN CARRILLO CNP Marital Status: Phone: [phone] Race: White Ethnicity: Non- or Language: Kosovan Visit Id: Visit Reason: Abdominal pain; ABD PAIN Speciality: Acuity: Enc Type: Observation Med Service: Medical Arrival: 03/04/2024 13:47:44 Discharge: Dispo Type: Admitted as IP to this Hosp Address: [address] [place] [address] [id number] Provider Notes: Diagnosis: Small bowel obstruction; Ventral [...] every day. Care Team Members: Attending Physician: Liz MARTINEZ, Esvin Pierre Consulting Physician: Referring Physician: Follow up: With: Address: When: JOAN CARRILLO [address], [place] [id number] [phone] Business (1) Within 7 to 10 days Comments: Call for followup appointment Call physician if symptoms worsen With: Address: When: trauma clinic [address] [facility] [address], second floor, [address] [place] [address] , only if needed Comments: Please call to make follow up appointment if you have questions or concerns. Patient Education Information: Hernia, Adult Normal [facility] Inpatient Patient Summaryon 03-05-2024 Inpatient Patient Summary [...] physician if symptoms worsen Where: [address] [place] [address] [phone] Business (1) Follow Up with trauma clinic When: Only if needed Comments: Please call to make follow up appointment if you have questions or concerns. Where: [address] [place] [address] 3, second floor, [address] [place] [address]- [phone] Medications What How Much When Instructions Next [...] It may (more content not included)... Normal [facility] Inpatient Patient Summary Inpatient Patient Summary [address] [address] Patient Discharge Instructions PERSON INFORMATION Name: CHRISTIAN SHELBY Date of : 1975 Current Date: 03/05/2024 10:00:00 PHYSICIANS Admitting Physician: Liz MARTINEZ, Esvin Pierre Primary Care Physician: JOAN CARRILLO CNP PCP Phone Number: [phone] Comment: Discharge Diagnosis: Small bowel obstruction; Ventral [...] With: Address: When: JOAN CARRILLO [address] [facility], [place], [place] [phone] Business (1) Within 7 to 10 days Comments: Call for followup appointment Call physician if symptoms worsen With: Address: When: trauma clinic [address] [place] [address] 3, second floor, [address] [place] [address] , only if needed Comments: [...] Mouth every day. Pharmacy Information: Other: [facility] Comment: PATIENT EDUCATION INFORMATION [...] a lo (more content not included)... Normal [facility] Interdisciplinary Note - Alexander e Manageron 03-05-2024 Interdisciplinary Note - Business Area Manager Interdisciplinary Note - Business Area Manager CRM to room to discuss DC planning. [...] needs for DME, HH or PM. Normal [facility] Comment on above: Result Comment: Elec tronically Signed By: Bhavna Mcnair\.br\Date and Time Signed: 03/05/24 09:00 EDT Magnesiumon 03-05-2024 Magnesium [Mass/Vol] 1.8 mg/dL Normal 1.3-2.4 Fish er [facility] Comment on above: Performed By: #### 2 [id number] #### [facility] [address] [place] [address] UA with Cult Rflxon 03-05-20 Bilirubin Ql (U) Negative Normal Negative [facility] Comment on above: Performed By: #### 4 [id number] #### [facility] [address] [place] [address] Clarity (U) Clear Normal Clear [facility] Comment on above: Performed By: #### 4 [id number] #### [facility] [address] [place] [address] Color (U) Light-Yellow Normal Yellow [facility] Comment on above: Result Comment: Micr oscopic readings are only performed on those samples that meet specific criteria set forth by [facility]. Performed By: #### 4 [id number] #### [facility] [address] [place] [address] Epithelial cells.squamous Auto (Urine sed) [#/Area] 0-2 Invalid Interpretation Code [facility] Comment on above: Performed By: #### 4 [id number] #### [facility] [address] [place] [address] Glucose Ql (U) 4+ mg/dL Abnormal Negative [facility] Comment on above: Performed By: #### 4 [id number] #### [facility] [address] [place] [address] Hemoglobin Auto test strip (U) [Mass/Vol] Negative Normal Negative [facility] Comment on above: Performed By: #### 4 [id number] #### [facility] [address] [place] [address] Ketones Auto test strip Ql (U) 2+ mg/dL Abnormal Negative [facility] Comment on above: Performed By: #### 4 [id number] #### [facility] [address] [place] [address] Leukocyte esterase Auto test strip Ql (U) 25 Flora/uL Normal Negative [facility] Comment on above: Performed By: #### 4 [id number] #### [facility] [address] [place] [address] Mucus Auto Ql (U) Trace Normal Negative [facility] Comment on above: Performed By: #### 4 [id number] #### [facility] [address] [place] [address] Nitrite Auto test strip Ql (U) Negative Normal Negative [facility] Comment on above: Performed By: #### 4 [id number] #### [facility] [address] [place] [address] pH (U) 5.5 [pH] Invalid Interpretation Code 5.0-9.0 [facility] Comment on above: Performed By: #### 4 [id number] #### [facility] [address] [place] [address] Protein Ql (U) Negative Normal Negative [facility] Comment on above: Performed By: #### 4 [id number] #### [facility] [address] [place] [address] RBC Ql (U) 0-3 Normal 0-3 [facility] Comment on above: Performed By: #### 4 [id number] #### [facility] [address] [place] [address] Specific gravity (U) [Rel density] 1.026 Invalid Interpretation Code 1.005-1.03 0 [facility] Comment on above: Performed By: #### 4 [id number] #### [facility] [address] [place] [address] Urobilinogen (U) [Mass/Vol] Negative Normal Negative [facility] Comment on above: Performed By: #### 4 [id number] #### [facility] [address] [place] [address] WBC Auto (Urine sed) [#/Area] 0-5 Normal 0-5 [facility] Comment on above: Performed By: #### 4 [id number] #### [facility] [address] [place] [address] URINALYSISOrdered By: SYSTEM SYSTEM on 03-05-2024 Bilirubin Ql (U) Negative Normal Negativemg /dL [facility] UA Auto SS Clarity (U) Clear (03/05/24 7:36 AM) Normal Clear [facility] UA Auto SS Color (U) Light-Yellow 1 (03/05/24 7:36 AM) Normal Yellow [facility] UA Auto SS Comment on above: Interpretive Data: M icroscopic readings are only performed on those samples that meet specific criteria set forth by [facility]. Epithelial cells.squamous Auto (Urine sed) [#/Area] [...] Urobilinogen (U) [Mass/Vol] Negative Normal Negativemg /dL [facility] UA Auto SS WBC Auto (Urine sed) [#/Area] 0-5 graded/HPF Normal 0-5graded/ HPF [facility] UA Auto SS URINALYSISOrdered By: Ruiz latif on 03-05-2024 UA Spec Desc Clean Catch (03/05/24 7:36 AM) Normal [facility] UA Auto SS Work Phone: eGFRon 03-05-2024 eGFR 119 mL/min/1.73 m2 Normal >=59 [facility] Comment on above: Order Comment: Order added by Discern Expert. Performed By: #### 1 [id number] #### [facility] [address] [place] [address] BMPon 03-04-2024 Anion gap [Moles/Vol] 16 mmol/L Normal 6-16 [facility] Comment on above: Performed By: #### 2 555345 #### [facility] [address] [place] [address] Calcium [Mass/Vol] 8.0 mg/dL Low 8.9-11.1 [facility] Comment on above: Performed By: #### 2 585686 #### [facility] [address] [place] [address] Chloride [Moles/Vol] 104 mmol/L Normal 101-111 [facility] Comment on above: Performed By: #### 2 565206 #### [facility] [address] [place] [address] CO2 [Moles/Vol] 21 mmol/L Normal 21-31 [facility] Comment on above: Performed By: #### 2 761589 #### [facility] [address] [place] [address] Creatinine [Mass/Vol] 0.7 mg/dL Normal 0.5-1.3 [facility] Comment on above: Performed By: #### 2 [id number] #### [facility] [address] [place] [address] Glucose [Mass/Vol] 194 mg/dL Normal 55-199 [facility] Comment on above: Performed By: #### 2 [id number] #### [facility] [address] [place] [address] Potassium [Moles/Vol] 3.9 mmol/L Normal 3.5-5.3 [facility] Comment on above: Performed By: #### 2 511657 #### [facility] [address] [place] [address] Sodium [Moles/Vol] 137 mmol/L Normal 135-145 [facility] Comment on above: Performed By: #### 2 969022 #### [facility] [address] [place] [address] Urea nitrogen [Mass/Vol] 12 mg/dL Normal 5-21 [facility] Comment on above: Performed By: #### 2 183675 #### [facility] [address] [place] [address] Urea nitrogen/Creatinine [Mass ratio] 17 No Units Normal 10-20 [facility] Comment on above: Performed By: #### 2 046735 #### [facility] [address] [place] [address] Anion gap [Moles/Vol] 21 mmol/L High 6-16 [facility] Comment on above: Performed By: #### 2 651756 #### [facility] [address] [place] [address] Calcium [Mass/Vol] 8.8 mg/dL Low 8.9-11.1 [facility] Comment on above: Performed By: #### 2 258829 #### [facility] [address] [place] [address] Chloride [Moles/Vol] 100 mmol/L Low 101-111 [facility] Comment on above: Performed By: #### 2 782376 #### [facility] [address] [place] [address] CO2 [Moles/Vol] 16 mmol/L Low 21-31 [facility] Comment on above: Performed By: #### 2 [id number] #### [facility] [address] [place] [address] Creatinine [Mass/Vol] 0.7 mg/dL Normal 0.5-1.3 [facility] Comment on above: Performed By: #### 2 411602 #### [facility] [address] [place] [address] Glucose [Mass/Vol] 272 mg/dL High 55-199 [facility] Comment on above: Performed By: #### 2 784123 #### [facility] [address] [place] [address] Potassium [Moles/Vol] 4.3 mmol/L Normal 3.5-5.3 [facility] Comment on above: Performed By: #### 2 751515 #### [facility] [address] [place] [address] Sodium [Moles/Vol] 133 mmol/L Low 135-145 [facility] Comment on above: Performed By: #### 2 855119 #### [facility] [address] [place] [address] Urea nitrogen [Mass/Vol] 12 mg/dL Normal 5-21 [facility] Comment on above: Performed By: #### 2 024235 #### [facility] [address] [place] [address] Urea nitrogen/Creatinine [Mass ratio] 17 No Units Normal 10-20 [facility] Comment on above: Performed By: #### 2 459058 #### [facility] [address] [place] [address] Bld Gas Venon 03-04-2024 FIO2 BG 21 Invalid Interpretation Code [facility] Comment on above: Performed By: #### 1 [id number] #### [facility] [address] [place] [address] pCO2 Myron 36.7 mmHg Low 38.0-50.0 [facility] Comment on above: Performed By: #### 1 0711914 #### [facility] [address] [place] [address] pH Myron 7.370 Normal 7.320-7.43 0 [facility] Comment on above: Performed By: #### 1 [id number] #### [facility] [address] [place] [address] Sample Type Venous Draw Normal [facility] Comment on above: Performed By: #### 1 [id number] #### [facility] [address] [place] [address] CBC w/ Auto Diffon 4 Basophils/100 WBC (Bld) 0.3 % Normal 0.0-2.0 [facility] Comment on above: Performed By: #### 2 [id number] #### [facility] [address] [place] [address] Basophils/Leukocytes Auto (Bld) [Pure # fraction] 0.1 E9/L Normal 0.0-0.2 [facility] Comment on above: Performed By: #### 2 549585 #### [facility] [address] [place] [address] Eosinophils (Bld) [#/Vol] 0.0 E9/L Normal 0.0-0.5 [facility] Comment on above: Performed By: #### 2 980176 #### [facility] [address] [place] [address] Eosinophils/100 WBC (Bld) 0.2 % Normal 0.0-8.0 [facility] Comment on above: Performed By: #### 2 927572 #### [facility] [address] [place] [address] Erythrocyte distribution width (RBC) [Ratio] 15.9 % High 10.9-14.2 [facility] Comment on above: Performed By: #### 2 031141 #### [facility] [address] [place] [address] Hematocrit (Bld) [Volume fraction] 48.0 % Normal 37.7-49.0 [facility] Comment on above: Performed By: #### 2 056534 #### [facility] [address] [place] [address] Hemoglobin (Bld) [Mass/Vol] 15.8 g/dL Normal 13.5-17.5 [facility] Comment on above: Performed By: #### 2 [id number] #### [facility] [address] [place] [address] Lymphocytes (Bld) [#/Vol] 1.2 E9/L Normal 1.0-4.0 [facility] Comment on above: Performed By: #### 2 276056 #### [facility] [address] [place] [address] Lymphocytes/100 WBC (Bld) 7.3 % Low 14.0-50.0 [facility] Comment on above: Performed By: #### 2 230746 #### [facility] [address] [place] [address] MCH (RBC) [Entitic mass] 27.8 pg Normal 27.0-34.0 [facility] Comment on above: Performed By: #### 2 935539 #### [facility] [address] [place] [address] MCHC (RBC) [Mass/Vol] 32.9 g/dL Normal 31.4-36.0 [facility] Comment on above: Performed By: #### 2 035247 #### [facility] [address] [place] [address] MCV (RBC) [Entitic vol] 84.5 fL Normal 80.0-100.0 [facility] Comment on above: Performed By: #### 2 [id number] #### [facility] [address] [place] [address] Monocytes (Bld) [#/Vol] 0.6 E9/L Normal 0.2-1.0 [facility] Comment on above: Performed By: #### 2 [id number] #### [facility] [address] [place] [address] Neutrophils (Bld) [#/Vol] 13.9 E9/L High 2.0-7.5 [facility] Comment on above: Performed By: #### 2 [id number] #### [facility] [address] [place] [address] Neutrophils/100 WBC (Bld) 88.3 % High 36.0-75.0 [facility] Comment on above: Performed By: #### 2 788690 #### [facility] [address] [place] [address] Platelet mean volume (Bld) [Entitic vol] 7.2 fL Normal 6.4-10.8 [facility] Comment on above: Performed By: #### 2 764799 #### [facility] [address] [place] [address] Platelets (Bld) [#/Vol] 313.0 E9/L Normal 150.0-500. 0 [facility] Comment on above: Performed By: #### 2 518014 #### [facility] [address] [place] [address] RBC (Bld) [#/Vol] 5.7 E12/L Normal 4.3-5.9 [facility] Comment on above: Performed By: #### 2 812596 #### [facility] [address] [place] [address] WBC corrected for nucl RBC Auto (Bld) [#/Vol] 15.8 E9/L High 4.0-11.0 [facility] Comment on above: Performed By: #### 2 058376 #### [facility] [address] [place] [address] CHEMISTRYOrdered By: Lab ROP User on 03-04-2024 Glucose [Mass/Vol] 169 mg/dL High 55 - 99 mg/dL [facility] POC Subsection POC Device SN [id number] 1 Invalid Interpretation Code [facility] POC Subsection POC User ID [id number] 1 Invalid Interpretation Code [facility] POC Subsection POC Username SIR DEMARCO CARR Invalid Interpretation Code [facility] POC Subsection Glucose [Mass/Vol] 191 mg/dL High 55 - 99 mg/dL [facility] POC Subsection Comment on above: Result Comment: Isabelle adames RN/ POC Device SN [id number] 1 Invalid Interpretation Code [facility] POC Subsection POC User ID [id number] 1 Invalid Interpretation Code [facility] POC Subsection POC Username TIM WARE Invalid Interpretation Code [facility] POC Subsection CHEMISTRYOrdered By: SYSTEM SYSTEM on [...] REPORT Dictated: 03/04/2024 4:46 pm Fareed Hebert MD. Signed (Electronic Signature): 03/04/2024 4:46 pm Signed by: Fareed Hebert MD Transcribed by: SHERIF Technologist: JANETTE Technical Comments GFR (mL/min/1/73m2) 113 Contrast: Isovue 300 Contrast amount in ml's: 100 Normal [facility] Capillary Glucose POCon 02-08 Glucose [Mass/Vol] 169 mg/dL High 55-99 [facility] Comment on above: Performed By: #### 2 [id number] #### [facility] [address] [place] [address] Glucose [Mass/Vol] 191 mg/dL High 55-99 [facility] Comment on above: Result Comment: Isabelle adames RN/MD Performed By: #### 2 [id number] #### [facility] [address] [place] [address] Consent for Treatmenton 02-08 Consent for Treatment [id number] Normal [facility] ED Clinical Summaryon 2023 ED Clinical Summary (Inserted Image. Angella ble to display) [address] [address] ED Clinical Summary Person Information Name: CHRISTIAN SHELBY Dee/[facility] Age: 48 Years : 1975 Sex: Male Language: Kosovan PCP: JOAN CARRILLO CNP Marital Status: Phone: [phone] MRN: [id number] Visit Id: Visit Reason: Abdominal pain; ABD PAIN Speciality: Acuity: 2 Enc Type: Emergency Med Service: Emergency Arrival: 03/04/2024 13:47:44 Discharge: LOS: 000 04:16 Checkin: 03/04/2024 13:47:44 Checkout: 03/04/2024 18:03:38 Dispo Type: Admitted as IP to this [facility] EVENTS: Event Name Event Status Request Date/Time [...] 03/04/2024 18:03:38 03/04/2024 18:03:38 03/04/2024 18:03:38 ADDRESS: [address] [place] [phone] PHYS DOC NOTES: MEDICAL INFORMATION: Prescriptions Given: [...] DIAGNOSIS: Small bowel obstruction; Ventral hernia Normal [facility] ED Note-Physicianon 03-04-20 ED Note-Physician Basic Information Time Seen: Chapito BEAN, Ruiz Ruiz 03/04/2024 15:08 Chief Complaint hx hernia, states [...] and Complexity of Problems Differential Diagnosis: [] [facility] Data External documents reviewed: [] My [...] even further, with Leandra Wallace of the [facility] trauma surgery team coming down and performing [...] Stable Dis (more content not included)... Normal [facility] Comment on above: Result Comment: Elec tronically Signed By: Ruiz Uriarte PA-C\.br\Date and Time Signed: 03/04/24 18:36 EDT\.br\Electronically Co-Signed By: Bryce Gibson M.D.\.br\Date and Time Co-Signed: 03/04/24 18:44 EDT ED Patient Education Noteon 03-04-2024 ED Patient Education Note Normal [facility] ED Patient Summaryon 024 ED Patient Summary (Inserted Image. Angella ble to display) [place] [id number] Patient Discharge Instructions Person Information Name: CHRISTIAN SHELBY Age: 48 Years Arrival Date: 03/04/2024 13:47:44 Discharge Diagnosis: Small bowel obstruction; Ventral hernia Primary Care Physician: JOAN CARRILLO CNP Provider Information Primary Provider: Bryce Gibson M.D. Advanced Rail Switchman:None The exam and treatment you received in the Emergency Department were for an urgent problem and are not intended as complete care. It is important that you follow up with a doctor, nurse practitioner, or physician?s assisted living assistant for ongoing care. If your symptoms [...] opioids can be used to help relieve lgzvabna-nj-hwqhhi pain and are often prescribed following a [...] be struggling with addiction, tell your health resident care aide and ask for guidance or call [facility] National Helpline at 0-540-123-KFMT. u Source: US Department of Health and Human Services/Center for Disease Control & Prevention [facility] Medications Given: Medication Dose R (more content not included)... Normal [facility] FT Blood GasesOrdered By: Faisal Mcgarry on 03-04-2024 Allens Test Not Applicable (03/04/24 5:41 PM) Normal [facility] Resp Auto SS Drawn by lab Invalid Interpretation Code [facility] Resp Auto SS Sample Site OTHER (03/04/24 5:41 PM) Normal [facility] Resp Auto SS FT Blood GasesOrdered By: Maria Eugenia Reeves on 03-04-2024 FIO2 BG 21 1 Invalid Interpretation Code [facility] Resp Auto SS pCO2 Myron 36.7 mm[Hg] Low 38.0 - 50.0 mmHg [facility] Resp Auto SS pH (Bld) 7.370 [pH] Normal 7.320 - 7.430 [facility] Resp Auto SS Sample Type Venous Draw (03/04/24 5:41 PM) Normal [facility] Resp Auto SS HEMATOLOGYOrdered By: SYSTEM SYSTEM [...] 03-04-2024 Albumin [Mass/Vol] 4.2 g/dL Normal 3.3-5.0 [facility] Comment on above: Performed By: #### 2 [id number] #### [facility] [address] [place] [address] Albumin/Globulin (S) [Mass conc ratio] 1.1 Normal 1.1-2.2 [facility] Comment on above: Performed By: #### 2 281609 #### [facility] [address] [place] [address] ALP [Catalytic activity/Vol] 77 Int._Unit/L Normal 21-98 [facility] Comment on above: Performed By: #### 2 291184 #### [facility] [address] [place] [address] ALT No additional P-5'-P [Catalytic activity/Vol] 30 Int._Unit/L Normal 6-46 [facility] Comment on above: Performed By: #### 2 655397 #### [facility] [address] [place] [address] AST [Catalytic activity/Vol] 16 Int._Unit/L Normal 5-43 [facility] Comment on above: Performed By: #### 2 446128 #### [facility] [address] [place] [address] Bilirubin [Mass/Vol] 0.5 mg/dL Normal 0.0-1.1 [facility] Comment on above: Performed By: #### 2 348948 #### [facility] [address] [place] [address] Bilirubin.direct [Mass/Vol] 0.1 mg/dL Normal 0.0-0.4 [facility] Comment on above: Performed By: #### 2 082192 #### [facility] [address] [place] [address] Bilirubin.indirect [Mass or moles/Vol] 0.4 mg/dL Normal 0.1-0.9 [facility] Comment on above: Performed By: #### 2 144629 #### [facility] [address] [place] [address] Globulin (S) [Mass/Vol] 4.0 g/dL Normal 1.4-4.0 [facility] Comment on above: Performed By: #### 2 136583 #### [facility] [address] [place] [address] Protein [Mass/Vol] 8.2 g/dL High 6.0-7.8 [facility] Comment on above: Performed By: #### 2 821556 #### [facility] [address] [place] [address] Lactic Acidon 03-04-2024 Lactic Acid Lvl 1.3 mmol/L Normal 0.5-2.2 [facility] Comment on above: Performed By: #### 2 286743 #### [facility] [address] [place] [address] Lipase Levelon 03-04-2024 Lipase [Catalytic activity/Vol] 9 U/L Low 13-58 [facility] Comment on above: Performed By: #### 2 212081 #### [facility] [address] [place] [address] UA with Cult Rflxon 03-04-20 24 Type of Urine collection method Clean Catch Normal [facility] Comment on above: Performed By: #### 4 [id number] #### [facility] [address] [place] [address] eGFRon 03-04-2024 eGFR 113 mL/min/1.73 m2 Normal >=59 [facility] Comment on above: Order Comment: Order added by Discern Expert. Performed By: #### 1 9030385 #### [facility] [address] [place] [address] eGFR 113 mL/min/1.73 m2 Normal >=59 [facility] Comment on above: Order Comment: Order added by Discern Expert. Performed By: #### 1 0000918 #### [facility] [address] [place] [address] Inpatient Clinical Summaryon 08-23-2023 Inpatient Clinical Summary [address] [address] Clinical Summary Person Information: Name: CHRISTIAN SHELBY Age: 47 Years : 1975 Sex: Male PCP: Balijt Bryant DO Marital Status: Phone: [phone] Race: White Ethnicity: Non- or Language: Kosovan Visit Id: Visit Reason: Nausea; Abdominal pain; HERNIA Speciality: Acuity: Enc Type: Observation Med Service: Medical Arrival: 08/13/2023 18:32:38 Discharge: 08/14/2023 14:02:02 Dispo Type: Home (Routine DC) Address: [address] [place] [phone] Provider Notes: Diagnosis: 1:Abdominal hernia Problems Active [...] up: With: Address: When: Baljit Bryant [address] [place] [address] Business (1) With: Address: When: trauma clinic [address] [place] [address] 3, second floor, [address] [place] [address] , only if needed Comments: Please call to make follow up appointment if you have questions or concerns. Our office has placed a referral to the bariatric clinic at [facility], if you do not hear from [facility] please contact this office and we can help facilitate scheduling an appointment. Patient Education Information: Hernia, Adult Normal [facility] Patient Education - Texton 1 10-24-2022 Patient [...] keep your urine pale yellow. ? Take pybd-vph-cxphycx or prescription medicines. ? Eat foods that [...] any changes or new symptoms. ? Take vkud-fth-rjhupgs and prescription medicines only as told by [...] Feels hard (more content not included)... Normal [facility] Discharge Instructionson Discharge Instructions [id number] Normal [facility] Auto Diffon 08-14-2023 Basophils/100 WBC (Bld) 0.2 % Normal 0.0-2.0 [facility] Comment on above: Order Comment: Order Added by Discern Expert. Performed By: #### 1 9005422, 7860989, 2365938, 7914805 ####[facility] [address] [place] [address] Basophils/Leukocytes Auto (Bld) [Pure # fraction] 0.0 E9/L Normal 0.0-0.2 [facility] Comment on above: Order Comment: Order Added by Discern Expert. Performed By: #### 1 9069728, 7523732, 6587570, 1719991 ####[place] [address] [place] [address] Eosinophils/100 WBC (Bld) 0.2 % Normal 0.0-8.0 [facility] Comment on above: Order Comment: Order Added by Discern Expert. Performed By: #### 1 8618439, 0099166, 2561446, 4493631 ####[place] [address] [place] [address] Eosinophils/Leukocyt es Auto (Bld) [Pure # fraction] 0.0 E9/L Normal 0.0-0.5 [facility] Comment on above: Order Comment: Order Added by Discern Expert. Performed By: #### 1 7607875, 9057609, 2173592, 5298333 ####[address] [address] Lymphocytes/100 WBC (Bld) 13.3 % Low 14.0-50.0 [facility] Comment on above: Order Comment: Order Added by Discern Expert. Performed By: #### 1 1215099, 7900177, 1436757, 2648005 ####[address] [address] Lymphocytes/Leukocyt es Auto (Bld) [Pure # fraction] 1.8 E9/L Normal 1.0-4.0 [facility] Comment on above: Order Comment: Order Added by Discern Expert. Performed By: #### 1 5959466, 1363023, 6217268, 3195801 ####[address] [address] Monocytes/100 WBC (Bld) 10.0 % Normal 4.0-14.0 [facility] Comment on above: Order Comment: Order Added by Discern Expert. Performed By: #### 1 1294045, 6003778, 7976094, 7785456 ####[address] [address] Monocytes/Leukocytes Auto (Bld) [Pure # fraction] 1.3 E9/L High 0.2-1.0 [facility] Comment on above: Order Comment: Order Added by Discern Expert. Performed By: #### 1 9326593, 0932382, 0557422, 4390619 ####[place] [address] [place] [address] Neutrophils/100 WBC (Bld) 76.3 % High 36.0-75.0 [facility] Comment on above: Order Comment: Order Added by Discern Expert. Performed By: #### 1 9766262, 6590043, 2246416, 0722262 ####[place] [address] [place] [address] Neutrophils/Leukocyt es Auto (Bld) [Pure # fraction] 10.2 E9/L High 2.0-7.5 [facility] Comment on above: Order Comment: Order Added by Discern Expert. Performed By: #### 1 8844938, 7465516, 8770473, 0663325 ####[place] [address] [place] [address] BMPon 08-14-2023 Anion gap [Moles/Vol] 10 mmol/L Normal 6-16 [facility] Comment on above: Performed By: #### 1 4370539, 7228554, 6957367, 3682602 ####[place] [address] [place] [address] Calcium [Mass/Vol] 8.2 mg/dL Low 8.9-11.1 [facility] Comment on above: Performed By: #### 1 8838376, 7983098, 0240108, 6351595 ####[place] [address] [place] [address] Chloride [Moles/Vol] 105 mmol/L Normal 101-111 [facility] Comment on above: Performed By: #### 1 0642466, 9787755, 5630656, 5709410 ####[place] [address] [place] [address] CO2 [Moles/Vol] 23 mmol/L Normal 21-31 [facility] Comment on above: Performed By: #### 1 7598565, 4720237, 6483504, 2084118 ####[facility] [address] [place] [address] Creatinine [Mass/Vol] 0.7 mg/dL Normal 0.5-1.3 [facility] Comment on above: Performed By: #### 1 3158406, 4470329, 9278811, 1608094 ####[facility] [address] [place] [address] Glucose [Mass/Vol] 266 mg/dL High 55-199 [facility] Comment on above: Result Comment: If t his glucose result represents a fasting glucose, interpretation should refer to the following reference range: 55-99 mg/dL Performed By: #### 1 9006483, 6345773, 9259772, 0340063 ####[facility] [address] [place] [address] Potassium [Moles/Vol] 3.4 mmol/L Low 3.5-5.3 [facility] Comment on above: Performed By: #### 1 6316954, 7554231, 7379487, 3353722 ####[facility] [address] [place] [address] Sodium [Moles/Vol] 135 mmol/L Normal 135-145 [facility] Comment on above: Performed By: #### 1 9800554, 2378167, 8663412, 1590902 ####[facility] [address] [place] [address] Urea nitrogen [Mass/Vol] 13 mg/dL Normal 5-21 [facility] Comment on above: Performed By: #### 1 4998819, 1938642, 8101201, 2287126 ####[facility] [address] [place] [address] Urea nitrogen/Creatinine [Mass ratio] 19 No Units Normal 10-20 [facility] Comment on above: Performed By: #### 1 8082405, 4030118, 2851961, 5523634 ####[facility] [address] [place] [address] CBC w/ Auto Diffon 3 Erythrocyte distribution width (RBC) [Ratio] 15.0 % High 10.9-14.2 [facility] Comment on above: Performed By: #### 1 4109087, 8435411, 9682957, 3929892 ####[address] [address] Hematocrit (Bld) [Volume fraction] 41.0 % Normal 37.7-49.0 [facility] Comment on above: Performed By: #### 1 8042131, 6459962, 6451798, 9568463 ####[place] [address] Hemoglobin (Bld) [Mass/Vol] 13.7 g/dL Normal 13.5-17.5 [facility] Comment on above: Performed By: #### 1 5669144, 2397964, 9401771, 3133350 ####[address] [address] MCH (RBC) [Entitic mass] 28.0 pg Normal 27.0-34.0 [facility] Comment on above: Performed By: #### 1 0069974, 5250905, 8263622, 8442865 ####[address] [address] MCHC (RBC) [Mass/Vol] 33.4 g/dL Normal 31.4-36.0 [facility] Comment on above: Performed By: #### 1 7285012, 7243293, 6064090, 1592982 ####[address] [address] MCV (RBC) [Entitic vol] 83.8 fL Normal 80.0-100.0 [facility] Comment on above: Performed By: #### 1 5858933, 6842746, 2342357, 8715436 ####[place] [address] [place] [address] Platelet mean volume (Bld) [Entitic vol] 7.2 fL Normal 6.4-10.8 [facility] Comment on above: Performed By: #### 1 1772113, 8383273, 5364030, 2730479 ####[facility] [address] [place] [address] Platelets (Bld) [#/Vol] 289.0 E9/L Normal 150.0-500. 0 [facility] Comment on above: Performed By: #### 1 9198370, 8250149, 2645996, 1059712 ####[facility] [address] [place] [address] RBC (Bld) [#/Vol] 4.9 E12/L Normal 4.3-5.9 [facility] Comment on above: Performed By: #### 1 2255894, 1373134, 5795172, 3121764 ####[facility] [address] [place] [address] WBC corrected for nucl RBC Auto (Bld) [#/Vol] 13.3 E9/L High 4.0-11.0 [facility] Comment on above: Performed By: #### 1 4931982, 2272309, 4359353, 1112100 ####[facility] [address] [place] [address] [address] Abdomen/Pelvis w/ Contras ton 08-14-2023 CT [...] 17 cm. The hernia extends outside the gzjhf-kq-oliz is an incompletely imaged on the current [...] 300 Contrast amount in ml's: 100 Normal [facility] Capillary Glucose POCon 12-0 Glucose [Mass/Vol] 231 mg/dL High 55-99 [facility] Comment on above: Result Comment: Tisha didier Meter Performed By: #### 2 68513042 ####[facility] [address] [place] [address] Glucose [Mass/Vol] 231 mg/dL High 55-99 [facility] Comment on above: Result Comment: Tisha velásquez Meter Performed By: #### 2 47785104 ####[facility] [address] [place] [address] ED Clinical Summaryon 2022 ED Clinical Summary (Inserted Image. Angella ble to display) [address] [address] ED Clinical Summary Person Information Name: CHRISTIAN SHELBY Dee/[facility] Age: 47 Years : 1975 Sex: Male Language: Kosovan PCP: Baljit Bryant DO Marital Status: Phone: [phone] MRN: Visit Id: Visit Reason: Nausea; Abdominal pain; [...] 00:27:35 Patient Care Request 08/14/2023 03:46:42 ADDRESS: [address] [place] [phone] [facility] DOC NOTES: MEDICAL INFORMATION: Prescriptions Given: PATIENT EDUCATION INFORMATION: Instructions: Follow up: DIAGNOSIS: 1:Abdominal hernia Normal [facility] ED Patient Education Noteon 08-14-2023 ED Patient Education Note Normal [facility] ED Patient Summaryon 023 ED Patient Summary (Inserted Image. Angella ble to display) [address] [address] Patient Discharge Instructions Person Information Name: CHRISTIAN SHELBY Age: 47 Years Arrival Date: 08/13/2023 18:32:38 Discharge Diagnosis: 1:Abdominal hernia Primary Care Physician: Baljit Bryant DO Provider Information Primary Provider: Joshua Starr DO Advanced Rail Switchman:Baljit Moyer PA-C The exam and treatment you received in the Emergency Department were for an urgent problem and are not intended as complete care. It is important that you follow up with a doctor, nurse practitioner, or physician?s assisted living assistant for ongoing care. If your symptoms [...] opioids can be used to help relieve ugegcply-yg-bkbawn pain and are often prescribed following a [...] be struggling with addiction, tell your health resident care aide and ask for guidance or call [employer]?S National Helpline at 4-545-793-HELP. v Source: US Department of Health and Human Services/Center for Disease Control & Prevention [facility] Medications Given: Medication Dose Route S (more content not included)... Normal [facility] Inpatient Patient Summaryon 08-14-2023 Inpatient Patient [...] Diagnostic Test Results None Pharmacy Information Other: [facility] in [place] New Follow Up Appointments after Discharge Follow Up with trauma clinic When: Only if needed Comments: Please call to make follow up appointment if you have questions or concerns. Our office has placed a referral to the bariatric clinic at [facility], if you do not hear from [facility] Dickey please contact this office and we can help facilitate scheduling an appointment. Where: [address] [facility] [address], second floor, [address] [place] [address]- [phone] Medications What How Much When Instructions Next [...] (08/14/23 06:46:00) Potassium Lvl: 3.4 mmol/L Low (08/14/23:46:00) MCHC: [...] the mu (more content not included)... Normal [facility] Insurance Correspondence Off iceon 08-14-2023 Insurance Correspondence Office [id number]#[id number] Normal [facility] Insurance Correspondence Office [id number]#[id number] Normal [facility] Lactic Acidon 08-14-2023 Lactate [Mass/Vol] 1.1 mmol/L Normal 0.5-2.2 [facility] Comment on above: Performed By: #### 2 817477 ####[facility] [address] [place] [address] eGFRon 08-14-2023 GFR/1.73 sq M.predicted among non-blacks MDRD (S/P/Bld) [Vol rate/Area] 114 mL/min/1.73 m2 Normal >=59 [facility] Comment on above: Order Comment: Order added by Discern Expert. Result Comment: Alignment Mechanic dawson kidney disease could be indicated at eGFR's of less than 60 mL/min/1.73m2. Kidney failure is indicated at less than 15 mL/min/1.73m2. Performed By: #### 1 7093074, 0480254, 1526358, 1655094 ####[facility] [address] [place] [address] Auto Diffon 08-13-2023 Basophils/100 WBC (Bld) 0.1 % Normal 0.0-2.0 [facility] Comment on above: Order Comment: Order Added by Discern Expert. Performed By: #### 2 577570, 78902905, 6263266, 8604051, 80540728, 6554213, 6903723, 0767881 ####[facility] [address] [place] [address] Basophils/Leukocytes Auto (Bld) [Pure # fraction] 0.0 E9/L Normal 0.0-0.2 [facility] Comment on above: Order Comment: Order Added by Discern Expert. Performed By: #### 2 379404, 16811652, 4008806, 7490436, 68413831, 8346624, 6734585, 6478046 ####[facility] [address] [place] [address] Eosinophils/100 WBC (Bld) 0.1 % Normal 0.0-8.0 [facility] Comment on above: Order Comment: Order Added by Discern Expert. Performed By: #### 2 079824, 45460719, 0401672, 9056589, 63021306, 0617962, 3718949, 5322634 ####[facility] [address] [place] [address] Eosinophils/Leukocyt es Auto (Bld) [Pure # fraction] 0.0 E9/L Normal 0.0-0.5 [facility] Comment on above: Order Comment: Order Added by Discern Expert. Performed By: #### 2 536712, 46466187, 3306915, 0740246, 72720868, 2412463, 6401931, 3161770 ####[facility] [address] [place] [address] Lymphocytes/100 WBC (Bld) 10.7 % Low 14.0-50.0 [facility] Comment on above: Order Comment: Order Added by Discern Expert. Performed By: #### 2 355282, 77177430, 1885143, 7682549, 46014006, 0461992, 6614825, 5296624 ####[address] [address] Lymphocytes/Leukocyt es Auto (Bld) [Pure # fraction] 1.7 E9/L Normal 1.0-4.0 [facility] Comment on above: Order Comment: Order Added by Deana Expert. Performed By: #### 2 415396, 35294511, 0118981, 4186626, 44565452, 9799326, 1658120, 0468988 ####[place] [address] [place] [address] Monocytes/100 WBC (Bld) 7.5 % Normal 4.0-14.0 [facility] Comment on above: Order Comment: Order Added by Discern Expert. Performed By: #### 2 532392, 09085705, 9596960, 9915899, 45860270, 8638524, 9799011, 3859198 ####[place] [address] [place] [address] Monocytes/Leukocytes Auto (Bld) [Pure # fraction] 1.2 E9/L High 0.2-1.0 [facility] Comment on above: Order Comment: Order Added by Discern Expert. Performed By: #### 2 385094, 91068040, 3209029, 2953645, 45647667, 3909583, 6884473, 7157122 ####[place] [address] [place] [address] Neutrophils/100 WBC (Bld) 81.6 % High 36.0-75.0 [facility] Comment on above: Order Comment: Order Added by Discern Expert. Performed By: #### 2 980804, 03241462, 7714242, 2836643, 47332292, 8610488, 8434943, 4467965 ####[facility] [address] [place] [address] Neutrophils/Leukocyt es Auto (Bld) [Pure # fraction] 12.8 E9/L High 2.0-7.5 [facility] Comment on above: Order Comment: Order Added by Discern Expert. Performed By: #### 2 494135, 05419971, 0082578, 2702228, 37341455, 7162232, 4321236, 5747313 ####[address] [address] BMPon 08-13-2023 Creatinine [Mass/Vol] 0.9 mg/dL Normal 0.5-1.3 [facility] Comment on above: Performed By: #### 2 075582, 86032059, 5967144, 9699141, 72528505, 6931174, 5283125, 0691473 ####[facility] [address] [place] [address] Urea nitrogen [Mass/Vol] 12 mg/dL Normal 5-21 [facility] Comment on above: Performed By: #### 2 558991, 42477382, 8044122, 6349073, 74103366, 9143688, 6529995, 6045179 ####[place] [address] [place] [address] Urea nitrogen/Creatinine [Mass ratio] 13 No Units Normal 10-20 [facility] Comment on above: Performed By: #### 2 429443, 47885825, 6951884, 9562595, 63254877, 2174960, 4020863, 2235509 ####[facility] [address] [place] [address] Anion gap [Moles/Vol] 21 mmol/L High 6-16 [facility] Comment on above: Performed By: #### 2 516271, 31086461, 0447480, 6290151, 49179684, 4989960, 8230093, 3756785 ####[facility] [address] [place] [address] Calcium [Mass/Vol] 9.1 mg/dL Normal 8.9-11.1 [facility] Comment on above: Performed By: #### 2 635399, 09056096, 7055340, 0779010, 26239909, 4153569, 3197574, 3036048 ####[facility] [address] [place] [address] Chloride [Moles/Vol] 98 mmol/L Low 101-111 [facility] Comment on above: Performed By: #### 2 256315, 66623787, 9674549, 5345137, 00332604, 5499371, 8873369, 7238746 ####[facility] [address] [place] [address] CO2 [Moles/Vol] 17 mmol/L Low 21-31 [facility] Comment on above: Performed By: #### 2 634830, 77978108, 2056155, 0812229, 71720179, 9997982, 5038563, 7667653 ####[facility] [address] [place] [address] Glucose [Mass/Vol] 321 mg/dL High 55-199 [facility] Comment on above: Result Comment: If t his glucose result represents a fasting glucose, interpretation should refer to the following reference range: 55-99 mg/dL Performed By: #### 2 719061, 40815140, 6917719, 9636199, 11230622, 8202520, 2062690, 4665388 ####[facility] [address] [place] [address] Potassium [Moles/Vol] 3.9 mmol/L Normal 3.5-5.3 [facility] Comment on above: Performed By: #### 2 297931, 08249024, 1764841, 1492894, 05179404, 2300291, 0805399, 3396894 ####[facility] [address] [place] [address] Sodium [Moles/Vol] 132 mmol/L Low 135-145 [facility] Comment on above: Performed By: #### 2 416607, 15530899, 7008591, 2586823, 70225944, 3234953, 2175576, 4321025 ####[facility] [address] [place] [address] BOHBon 08-13-2023 Beta hydroxybutyrate [Moles/Vol] 2.78 mmol/L High 0.02-0.27 [facility] Comment on above: Performed By: #### 2 11999841 ####[facility] [address] [place] [address] Bld Gas Venon 08-13-2023 Allens Test Not Applicable Normal [facility] Comment on above: Performed By: #### 1 0244859 ####[facility] [address] [place] [address] Drawn by lab Invalid Interpretation Code [facility] Comment on above: Performed By: #### 1 [id number] ####[facility] [address] [place] [address] FIO2 BG 21 Invalid Interpretation Code [facility] Comment on above: Performed By: #### 1 [id number] ####[facility] [address] [place] [address] pCO2 Myron 31.3 mmHg Low 38.0-50.0 [facility] Comment on above: Performed By: #### 1 [id number] ####[facility] [address] [place] [address] pH Myron 7.434 High 7.320-7.43 0 [facility] Comment on above: Performed By: #### 1 [id number] ####[address] [address] Sample Site OTHER Normal [facility] Comment on above: Performed By: #### 1 [id number] ####[address] [address] Sample Type Venous Draw Normal [facility] Comment on above: Performed By: #### 1 [id number] ####[place] [id number] CBC w/ Auto Diffon 3 Erythrocyte distribution width (RBC) [Ratio] 15.2 % High 10.9-14.2 [facility] Comment on above: Performed By: #### 2 790106, 07531496, 9562212, 3339635, 29006997, 2094948, 0144865, 0099654 ####[place] [address]57 Hematocrit (Bld) [Volume fraction] 49.5 % High 37.7-49.0 [facility] Comment on above: Performed By: #### 2 442113, 45464005, 2698836, 9332742, 63741554, 8093677, 3194927, 4818798 ####[address] [address] Hemoglobin (Bld) [Mass/Vol] 15.8 g/dL Normal 13.5-17.5 [facility] Comment on above: Performed By: #### 2 952412, 81078757, 4132450, 1951353, 07638686, 2161054, 0530835, 7435343 ####[facility] [address] [place] [address] MCH (RBC) [Entitic mass] 27.1 pg Normal 27.0-34.0 [facility] Comment on above: Performed By: #### 2 190345, 06070769, 5368902, 8867586, 84664251, 0193583, 1797958, 9340152 ####[place] [address] [place] [address] MCHC (RBC) [Mass/Vol] 32.0 g/dL Normal 31.4-36.0 [facility] Comment on above: Performed By: #### 2 434710, 92085000, 2539903, 8695506, 46591577, 6665550, 8254400, 1646057 ####[address] [address] MCV (RBC) [Entitic vol] 84.8 fL Normal 80.0-100.0 [facility] Comment on above: Performed By: #### 2 209847, 86622970, 6009029, 3778292, 09526374, 2462796, 9048826, 2774154 ####[address] [address] Platelet mean volume (Bld) [Entitic vol] 7.5 fL Normal 6.4-10.8 [facility] Comment on above: Performed By: #### 2 124346, 47143692, 2675810, 4943118, 50083907, 5543111, 6446896, 2367755 ####[address] [address] Platelets (Bld) [#/Vol] 361.0 E9/L Normal 150.0-500. 0 [facility] Comment on above: Performed By: #### 2 860495, 23715331, 8063151, 5293734, 15695312, 8860643, 3564731, 8915403 ####[address] [address] RBC (Bld) [#/Vol] 5.8 E12/L Normal 4.3-5.9 [facility] Comment on above: Performed By: #### 2 569581, 58673776, 2112970, 4933429, 34305350, 5080455, 8901987, 1962412 ####[address] [address] WBC corrected for nucl RBC Auto (Bld) [#/Vol] 15.6 E9/L High 4.0-11.0 [facility] Comment on above: Performed By: #### 2 732551, 31097039, 8625515, 5149037, 94907452, 7813754, 9356762, 9023656 ####[facility] [address] [place] [address] Capillary Glucose POCon Glucose [Mass/Vol] 277 mg/dL High 55-99 [facility] Comment on above: Result Comment: Tisha didier Meter Performed By: #### 2 [id number] ####[facility] [address] [place] [address] Consent for Treatmenton Consent for Treatment [id number] Normal [facility] ED Note-Physicianon 08-13-20 ED Note-Physician Patient was [...] under her service for further monitoring. Normal [facility] Comment on above: Result Comment: Elec tronically [...] Diagnostic Results No qualifying data available. Normal [facility] Comment on above: Result Comment: Elec tronically Signed By: Baljit Myoer PA-C\.br\Date and Time Signed: 08/13/23 19:17 EST\.br\Electronically Co-Signed By: Joshua Starr DO\.br\Date and Time Co-Signed: 08/13/23 20:38 EST Hep Func Panelon 08-13-2023 Albumin [Mass/Vol] 4.1 g/dL Normal 3.3-5.0 [facility] Comment on above: Performed By: #### 2 835250, 15683535, 9055883, 6372906, 58165309, 9455545, 5314113, 1674727 ####[facility] [address] [place] [address] Albumin/Globulin (S) [Mass conc ratio] 0.9 Low 1.1-2.2 [facility] Comment on above: Performed By: #### 2 570674, 70842475, 2111083, 1199642, 04519611, 2203038, 3337396, 0150841 ####[place] [address] [place] [address] ALP [Catalytic activity/Vol] 73 Int._Unit/L Normal 21-98 [facility] Comment on above: Performed By: #### 2 815538, 55712530, 7707686, 5512813, 03256663, 7282697, 9833017, 8338404 ####[facility] [address] [place] [address] ALT No additional P-5'-P [Catalytic activity/Vol] 36 Int._Unit/L Normal 6-46 [facility] Comment on above: Performed By: #### 2 506062, 82458134, 3618675, 6044233, 45371964, 5246722, 6583518, 7302960 ####[facility] [address] [place] [address] AST [Catalytic activity/Vol] 28 Int._Unit/L Normal 5-43 [facility] Comment on above: Performed By: #### 2 210998, 52768411, 4583183, 2645525, 82941715, 5986186, 3463433, 9322535 ####[facility] [address] [place] [address] Bilirubin [Mass/Vol] 0.7 mg/dL Normal 0.0-1.1 [facility] Comment on above: Performed By: #### 2 065701, 86705943, 0898455, 6087064, 69737719, 4522625, 9160864, 6906760 ####[place] [place] [address] Bilirubin.direct [Mass/Vol] 0.1 mg/dL Normal 0.1-0.4 [facility] Comment on above: Performed By: #### 2 010410, 12728661, 8456069, 7594419, 88844483, 6215557, 3628364, 1005261 ####[address] [address] Bilirubin.indirect [Mass or moles/Vol] 0.6 mg/dL Normal 0.1-0.9 [facility] Comment on above: Performed By: #### 2 592397, 80410268, 9027877, 4308982, 17620631, 9647192, 1780169, 7427929 ####[place] [place] [address] Globulin (S) [Mass/Vol] 4.6 g/dL High 1.4-4.0 [facility] Comment on above: Performed By: #### 2 057464, 24185956, 5364978, 7785005, 62951751, 9768709, 8080793, 3454416 ####[address] [address] Protein [Mass/Vol] 8.7 g/dL High 6.0-7.8 [facility] Comment on above: Performed By: #### 2 754507, 39087634, 6946480, 5522411, 02552881, 0058387, 2996515, 7320784 ####[address] [address] Lactic Acidon 08-13-2023 Lactate [Mass/Vol] 2.7 mmol/L High 0.5-2.2 [facility] Comment on above: Order Comment: Order added by EKS Rule. (FT_LACTIC_ACID_REFLEX) Adds reflex Lactic Acid 4 hours after initial if result is greater than or equal to 2.0. Performed By: #### 2 065669 ####[facility] [address] [place] [address] Lactate [Mass/Vol] 3.2 mmol/L High 0.5-2.2 [facility] Comment on above: Performed By: #### 2 939559, 46913509, 1697129, 5216410, 83695278, 1596759, 8467155, 3821464 ####[facility] [address] [place] [address] Lipase Levelon 08-13-2023 Lipase [Catalytic activity/Vol] 26 U/L Normal 13-58 [facility] Comment on above: Performed By: #### 2 654506, 15161838, 6708135, 1263414, 08088979, 7941096, 9623501, 5514206 ####[facility] [address] [place] [address] PT & PTTon 08-13-2023 aPTT Coag (PPP) [Time] 31.3 second(s) Normal 25.1-36.5 [facility] Comment on above: Result Comment: Para meter [...] the same coagulation reagent and instrumentation as [facility]. Currently there are no coagulation studies available worldwide for children to 14 days, and no normal ranges. Heparin therapeutic range (represented by Anti-Factor Xa activity of 0.2 - 0.4 U/mL) corresponds to PTT of 56.6 - 109.0 sec. Performed By: #### 2 650295, 57629585, 5491037, 7997658, 42538332, 3557944, 2878244, 9425439 ####[facility] [address] [place] [address] INR Coag (PPP) [Relative time] 1.0 {INR} Invalid Interpretation Code [facility] Comment on above: Result Comment: INR results are specifically intended to assess patients stabilized on long-term Anticoagulation therapy suggested INR?s ?Less Intensive Anticoagulation? 2.0 ? 3.0 Conventional Range 3.0 ? 4.5 Performed By: #### 2 051271, 94439503, 8571790, 8967773, 45708992, 7561161, 8575471, 0308405 ####[facility] [address] [place] [address] PT Coag (PPP) [Time] 11.4 second(s) Normal 9.4-12.5 [facility] Comment on above: Result Comment: 15 d [...] the same coagulation reagent and instrumentation as [facility]. Currently there are no coagulation studies available worldwide for children to 14 days, and no normal ranges. Performed By: #### 2 135840, 23112264, 0850336, 4725885, 13106438, 2235358, 6919883, 0411449 ####[facility] [address] [place] [address] RAD - Preliminary Cat Scan R eporton 08-13-2023 RAD - Preliminary Cat Scan Report [id number] Normal [facility] eGFRon 08-13-2023 GFR/1.73 sq M.predicted among non-blacks MDRD (S/P/Bld) [Vol rate/Area] 106 mL/min/1.73 m2 Normal >=59 [facility] Comment on above: Order Comment: Order added by Discern Expert. Result Comment: Alignment Mechanic dawson kidney disease could be indicated at eGFR's of less than 60 mL/min/1.73m2. Kidney failure is indicated at less than 15 mL/min/1.73m2. Performed By: #### 2 332634, 21182577, 9313673, 9136155, 55163619, 6256606, 6965238, 3114715 ####[facility] [address] [place] [address] CT CHEST W CONon 12-26-2022 CT CHEST [...] by: LAURA FISH Date: 2022-12-26 08:31 Normal [facility] CT ABD/PELV W CONon 11-28-[address] [...] visualized due to being outside of the jnaad-jr-gbvr. 2. Hepatic steatosis and hepatomegaly. 3. Enlarged [...] by: DARIUSZ VICENTE Date: 2022-11-27 10:31 Normal [facility] GLYCOHEMOGLOBIN A1Con 2022 ADA RECOMMENDATION SEE BELOW Normal [facility] Comment on above: Result Comment: ADA RECOMMENDED LIMIT 4.0 - 6.0 ADA THERAPEUTIC TARGET < 7.0 ACTION SUGGESTED > 7.0 Performed By: #### A 1C #### [facility] [address] [place] [address] Dr. Coco Rao Glucose [Mass/Vol] 180 mg/dL Normal [facility] Comment on above: Performed By: #### A 1C #### [facility] [address] [place] [address] Dr. Coco Rao HbA1c (Bld) [Mass fraction] 7.9 % Critically high 4.5-6.2 [facility] Comment on above: Performed By: #### A 1C #### [facility] [address] [place] [address] Dr. Coco Rao PROF 14(COMP METB)on 023 Albumin [Mass/Vol] 3.0 g/dL Critically low 3.4-5.0 [facility] Comment on above: Performed By: #### C MP #### [facility] [address] [place] [address] Dr. Coco Rao Albumin/Globulin [Mass ratio] 0.6 {ratio} Normal [facility] Comment on above: Performed By: #### C MP #### [facility] [address] [place] [address] Dr. Coco Rao ALP [Catalytic activity/Vol] 94 U/L Normal 46-116 [facility] Comment on above: Performed By: #### C MP #### [facility] [address] [place] [address] Dr. Coco Rao ALT [Catalytic activity/Vol] 26 U/L Normal 16-63 [facility] Comment on above: Performed By: #### C MP #### [facility] [address] [place] [address] Dr. Coco Rao Anion gap [Moles/Vol] 14.3 mmol/L Normal [facility] Comment on above: Performed By: #### C MP #### [facility] [address] [place] [address] Dr. Coco Rao AST [Catalytic activity/Vol] 15 U/L Normal 15-37 [facility] Comment on above: Performed By: #### C MP #### [facility] [address] [place] [address] [address] Coco Rao Bilirubin [Mass/Vol] 0.2 mg/dL Normal 0.2-1.0 [facility] Comment on above: Performed By: #### C MP #### [facility] [address] [place] [address] [address] Coco Rao Calcium [Mass/Vol] 8.4 mg/dL Critically low 8.5-10.1 [facility] Comment on above: Performed By: #### C MP #### [facility] [address] [place] [address] [address] Coco Rao Chloride [Moles/Vol] 101 mmol/L Normal 98-107 [facility] Comment on above: Performed By: #### C MP #### [facility] [address] [address] [address] Coco Rao CO2 [Moles/Vol] 25.7 mmol/L Normal 21.0-32.0 [facility] Comment on above: Performed By: #### C MP #### [facility] [address] [address] [address] Coco Rao Creatinine [Mass/Vol] 0.78 mg/dL Normal 0.70-1.30 [facility] Comment on above: Performed By: #### C MP #### [facility] [address] [address] [address] Coco Rao EGFR-AF EGYPTIAN >60 Normal >=60 [facility] Comment on above: Performed By: #### C MP #### [facility] [address] [address] [address] Coco Rao EGFR-NON AF EGYPTIAN >60 Normal >=60 [facility] Comment on above: Performed By: #### C MP #### [facility] [address] [address] [address] Coco Rao Globulin (S) [Mass/Vol] 5.2 g/dL Normal [facility] Comment on above: Performed By: #### C MP #### [facility] [address] [address] [address] Coco Rao Glucose [Mass/Vol] 134 mg/dL Critically high 74-106 [facility] Comment on above: Performed By: #### C MP #### [facility] [address] [address] [address] Coco Rao Potassium [Moles/Vol] 4.0 mmol/L Normal 3.5-5.1 [facility] Comment on above: Performed By: #### C MP #### [facility] [address] [address] [address] Ccoo Rao Protein [Mass/Vol] 8.2 g/dL Normal 6.4-8.2 [facility] Comment on above: Performed By: #### C MP #### [facility] [address] [address] [address] Coco Rao Sodium [Moles/Vol] 137 mmol/L Normal 136-145 [facility] Comment on above: Performed By: #### C MP #### [facility] [address] [address] [address] Coco Rao Urea nitrogen [Mass/Vol] 10.0 mg/dL Normal 7.0-18.0 [facility] Comment on above: Performed By: #### C MP #### [facility] [address] [address] [address] Coco Rao Urea nitrogen/Creatinine [Mass ratio] 12.8 mg/mg Normal [facility] Comment on above: Performed By: #### C MP #### [facility] [address] [address] [address] Coco Rao CULTURE WOUNDon 11-02-2022 CULTURE WOUND Isolate 1 Streptococcus constellatus Moderate growth of ORGANISM 1 Streptococcus constellatus ANTIBIOTIC M.I.C RX STATUS Benzylpenicillin <=0.06 S F Ampicillin <=0.25 S F Cefotaxime <=0.12 S F Ceftriaxone 0.25 S F Erythromycin >=8 R F Clindamycin >=1 R F Linezolid <=2 S F Vancomycin 0.5 S F Tetracycline >=16 R F Normal [facility] Comment on above: Performed By: #### W OUNDCX #### [facility] [address] [place] [address] Dr. Coco Rao CULTURE WOUNDon 06-20-2022 CULTURE [...] R F Oxacillin >=4 R F Normal [facility] Comment on above: Performed By: #### W OUNDCX #### [facility] [address] [place] [address] Dr. Coco Rao MICROALBUMIN URINEon 022 Albumin, Urine 17.9 ug/mL Normal Not Estab. [facility] Comment on above: Performed By: #### M ALBLC #### [facility] [address] [place] [address] Dr. Coco Rao CBC AUTO DIFFon 05-10-2022 BASO # 0.1 103/ul Normal 0.0-0.1 [facility] Comment on above: Performed By: #### W OUNDCX #### [facility] [address] [place] [address] Dr. Coco Rao Basophils/100 WBC (Bld) 0.8 % Normal 0.2-2.0 [facility] Comment on above: Performed By: #### W OUNDCX #### [facility] [address] [place] [address] Dr. Coco Rao EO # 0.3 103/ul Normal 0.0-0.7 [facility] Comment on above: Performed By: #### W OUNDCX #### [facility] [address] [place] [address] Dr. Coco Rao Eosinophils/100 WBC (Bld) 3.0 % Normal 0.9-7.0 [facility] Comment on above: Performed By: #### W OUNDCX #### [facility] [address] [place] [address] Dr. Coco Rao Erythrocyte distribution width (RBC) [Ratio] 15.2 % Critically high 11.0-15.0 [facility] Comment on above: Performed By: #### W OUNDCX #### [facility] [address] [place] [address] Dr. Coco Rao Hematocrit (Bld) [Volume fraction] 44.7 % Normal 42.0-54.0 [facility] Comment on above: Performed By: #### W OUNDCX #### [facility] [address] [place] [address] Dr. Coco Rao Hemoglobin (Bld) [Mass/Vol] 14.2 g/dL Normal 14.0-18.0 [facility] Comment on above: Performed By: #### W OUNDCX #### [facility] [address] [place] [address] Dr. Coco Rao IG # 0.04 10e3/ul Critically high 0.00-0.03 [facility] Comment on above: Performed By: #### W OUNDCX #### [facility] [address] [place] [address] Dr. Coco Rao IG % 0.4 % Normal 0.0-0.5 [facility] Comment on above: Performed By: #### W OUNDCX #### [facility] [address] [place] [address] Dr. Coco Rao LYMPH # 3.3 103/ul Normal 1.2-3.8 [facility] Comment on above: Performed By: #### W OUNDCX #### [facility] [address] [place] [address] Dr. Coco Rao Lymphocytes/100 WBC (Bld) 30.5 % Normal 20.5-60.0 [facility] Comment on above: Performed By: #### W OUNDCX #### [facility] [address] [place] [address] Dr. Coco Rao MANUAL DIFF REQ NO Normal [facility] Comment on above: Performed By: #### W OUNDCX #### [facility] [address] [place] [address] Dr. Coco Rao MCH (RBC) [Entitic mass] 26.9 pg Normal 25.9-34.0 [facility] Comment on above: Performed By: #### W OUNDCX #### [facility] [address] [place] [address] Dr. Coco Rao MCHC (RBC) [Mass/Vol] 31.8 g/dL Normal 29.9-35.2 [facility] Comment on above: Performed By: #### W OUNDCX #### [facility] [address] [place] [address] Dr. Coco Rao MCV (RBC) [Entitic vol] 84.7 fL Normal 80.0-94.0 [facility] Comment on above: Performed By: #### W OUNDCX #### [facility] [address] [place] [address] Dr. Coco Rao MONO # 1.0 103/ul Critically high 0.3-0.8 [facility] Comment on above: Performed By: #### W OUNDCX #### [facility] [address] [place] [address] Dr. Coco Rao Monocytes/100 WBC (Bld) 9.1 % Normal 1.7-12.0 [facility] Comment on above: Performed By: #### W OUNDCX #### [facility] [address] [place] [address] Dr. Coco Rao NEUT # 6.1 103/ul Normal 1.4-6.5 [facility] Comment on above: Performed By: #### W OUNDCX #### [facility] [address] [place] [address] Dr. Coco Rao Neutrophils/100 WBC (Bld) 56.2 % Normal 43.0-75.0 [facility] Comment on above: Performed By: #### W OUNDCX #### [facility] [address] [address] [address] Coco Rao Platelet mean volume (Bld) [Entitic vol] 9.3 fL Critically low 9.5-13.5 [facility] Comment on above: Performed By: #### W OUNDCX #### [facility] [address] [place] [address] Dr. Coco Rao PLT 372 103/ul Normal 150-450 [facility] Comment on above: Performed By: #### W OUNDCX #### [facility] [address] [place] [address] Dr. Coco Rao RBC 5.28 106/ul Normal 4.70-6.10 [facility] Comment on above: Performed By: #### W OUNDCX #### [facility] [address] [place] [address] Dr. Coco Rao WBC 10.8 103/ul Normal 4.0-11.0 [facility] Comment on above: Performed By: #### W OUNDCX #### [facility] [address] [place] [address] Dr. Coco Rao FREE T4on 05-10-2022 Free T4 [Mass/Vol] 1.31 ng/dL Normal 0.76-1.46 [facility] Comment on above: Performed By: #### W OUNDCX #### [facility] [address] [place] [address] Dr. Coco Rao GLYCOHEMOGLOBIN A1Con 2021 ADA RECOMMENDATION SEE BELOW Normal [facility] Comment on above: Result Comment: ADA RECOMMENDED LIMIT 4.0 - 6.0 ADA THERAPEUTIC TARGET < 7.0 ACTION SUGGESTED > 7.0 Performed By: #### A 1C #### [facility] [address] [place] [address] Dr. Coco Rao Glucose [Mass/Vol] 232 mg/dL Normal [facility] Comment on above: Performed By: #### A 1C #### [facility] [address] [place] [address] Dr. Coco Rao HbA1c (Bld) [Mass fraction] 9.7 % Critically high 4.5-6.2 [facility] Comment on above: Performed By: #### A 1C #### [facility] [address] [place] [address] Dr. Coco Rao LIPID PROFILEon 05-10-2022 CHOL-HDL RATIO NORM SEE BELOW Normal [facility] Comment on above: Result Comment: 3.3 - 4.4 LOW RISK 4.4 - 7.1 AVERAGE RISK 7.1 - 11.0 MODERATE RISK >11.0 HIGH RISK Performed By: #### C MP, LIPID, TSH #### [facility] [address] [place] [address] Dr. Coco Rao Cholesterol [Mass/Vol] 130 mg/dL Normal <=200 [facility] Comment on above: Performed By: #### C MP, LIPID, TSH #### [facility] [address] [place] [address] Dr. Coco Rao Cholesterol in HDL [Mass/Vol] 40 mg/dL Normal 40-60 [facility] Comment on above: Performed By: #### C MP, LIPID, TSH #### [facility] [address] [place] [address] Dr. Coco Rao Cholesterol in LDL [Mass/Vol] 66.0 mg/dL Normal [facility] Comment on above: Performed By: #### C MP, LIPID, TSH #### [facility] [address] [place] [address] Dr. Coco Rao Cholesterol.total/Ch olesterol in HDL [Mass ratio] 3.3 {ratio} Normal [facility] Comment on above: Performed By: #### C MP, LIPID, TSH #### [facility] [address] [place] [address] Dr. Coco Rao HDL NORMAL > or = 60 mg/dl - LO W CARDIOVASCULAR RISK <40 mg/dl - HIGH CARDIOVASCULAR RISK Normal [facility] Comment on above: Performed By: #### C MP, LIPID, TSH #### [facility] [address] [place] [address] Dr. Coco Rao LDL CALC NORMAL SEE BELOW Normal [facility] Comment on above: Result Comment: <100 mg/dl OPTIMAL 100 - 129 mg/dl NEAR OR ABOVE OPTIMAL 130 - 159 mg/dl BORDERLINE HIGH 160 - 189 mg/dl HIGH >190 mg/dl VERY HIGH Performed By: #### C MP, LIPID, TSH #### [facility] [address] [address] [address] Coco Rao Triglyceride [Mass/Vol] 120 mg/dL Normal <=150 [facility] Comment on above: Performed By: #### C MP, LIPID, TSH #### [facility] [address] [address] [address] Coco Rao VLDL CALC 24.0 mg/dL Normal [facility] Comment on above: Performed By: #### C MP, LIPID, TSH #### [facility] [address] [address] [address] Coco Rao PROF 14(COMP METB)on 022 Albumin [Mass/Vol] 3.0 g/dL Critically low 3.4-5.0 [facility] Comment on above: Performed By: #### C MP, LIPID, TSH #### [facility] [address] [address] [address] Coco Rao Albumin/Globulin [Mass ratio] 0.5 {ratio} Normal [facility] Comment on above: Performed By: #### C MP, LIPID, TSH #### [facility] [address] [address] [address] Coco Rao ALP [Catalytic activity/Vol] 89 U/L Normal 46-116 [facility] Comment on above: Performed By: #### C MP, LIPID, TSH #### [facility] [address] [address] [address] Coco Rao ALT [Catalytic activity/Vol] 22 U/L Normal 16-63 [facility] Comment on above: Performed By: #### C MP, LIPID, TSH #### [facility] [address] [address] [address] Coco Rao Anion gap [Moles/Vol] 15.1 mmol/L Normal [facility] Comment on above: Performed By: #### C MP, LIPID, TSH #### [facility] [address] [address] [address] Coco Rao AST [Catalytic activity/Vol] 14 U/L Critically low 15-37 [facility] Comment on above: Performed By: #### C MP, LIPID, TSH #### [facility] [address] [address] [address] Coco Rao Bilirubin [Mass/Vol] 0.4 mg/dL Normal 0.2-1.0 [facility] Comment on above: Performed By: #### C MP, LIPID, TSH #### [facility] [address] [place] [address] Dr. Coco Rao Calcium [Mass/Vol] 8.6 mg/dL Normal 8.5-10.1 [facility] Comment on above: Performed By: #### C MP, LIPID, TSH #### [facility] [address] [place] [address] Dr. Coco Rao Chloride [Moles/Vol] 100 mmol/L Normal 98-107 [facility] Comment on above: Performed By: #### C MP, LIPID, TSH #### [facility] [address] [place] [address] Dr. Coco Rao CO2 [Moles/Vol] 23.5 mmol/L Normal 21.0-32.0 [facility] Comment on above: Performed By: #### C MP, LIPID, TSH #### [facility] [address] [place] [address] Dr. Coco Rao Creatinine [Mass/Vol] 0.74 mg/dL Normal 0.70-1.30 [facility] Comment on above: Performed By: #### C MP, LIPID, TSH #### [facility] [address] [place] [address] Dr. Coco Rao EGFR-AF EGYPTIAN >60 Normal >=60 [facility] Comment on above: Performed By: #### C MP, LIPID, TSH #### [facility] [address] [place] [address] Dr. Coco Rao EGFR-NON AF EGYPTIAN >60 Normal >=60 [facility] Comment on above: Performed By: #### C MP, LIPID, TSH #### [facility] [address] [address] [address] Coco Rao Globulin (S) [Mass/Vol] 5.7 g/dL Normal [facility] Comment on above: Performed By: #### C MP, LIPID, TSH #### [facility] [address] [address] [address] Coco Rao Glucose [Mass/Vol] 175 mg/dL Critically high 74-106 [facility] Comment on above: Performed By: #### C MP, LIPID, TSH #### [facility] [address] [place] [address] Dr. Coco Rao Potassium [Moles/Vol] 3.6 mmol/L Normal 3.5-5.1 [facility] Comment on above: Performed By: #### C MP, LIPID, TSH #### [facility] [address] [place] [address] Dr. Coco Rao Protein [Mass/Vol] 8.7 g/dL Critically high 6.4-8.2 [facility] Comment on above: Performed By: #### C MP, LIPID, TSH #### [facility] [address] [place] [address] Dr. Coco Rao Sodium [Moles/Vol] 135 mmol/L Critically low 136-145 [facility] Comment on above: Performed By: #### C MP, LIPID, TSH #### [facility] [address] [place] [address] Dr. Coco Rao Urea nitrogen [Mass/Vol] 13.0 mg/dL Normal 7.0-18.0 [facility] Comment on above: Performed By: #### C MP, LIPID, TSH #### [facility] [address] [place] [address] Dr. Coco Rao Urea nitrogen/Creatinine [Mass ratio] 17.6 mg/mg Normal [facility] Comment on above: Performed By: #### C MP, LIPID, TSH #### [facility] [address] [place] [address] Dr. Coco Rao TSHon 05-10-2022 TSH 1.025 uIU/mL Normal 0.358-3.74 0 [facility] Comment on above: Performed By: #### C MP, LIPID, TSH #### [facility] [address] [place] [address] Dr. Coco Rao UA RANDOM W/MICROSCOPICon BACTERIA NONE SEEN Normal NONE SEEN [facility] Comment on above: Performed By: #### U AMIC #### [facility] [address] [place] [address] Dr. Coco Rao Bilirubin Ql (U) Negative Normal NEGATIVE [facility] Comment on above: Performed By: #### U AMIC #### [facility] [address] [place] [address] Dr. Coco Rao CAST NONE SEEN Normal NONE SEEN [facility] Comment on above: Performed By: #### U AMIC #### [facility] [address] [place] [address] Dr. Coco Rao Clarity (U) CLEAR Normal CLEAR [facility] Comment on above: Performed By: #### U AMIC #### [facility] [address] [place] [address] Dr. Coco Rao Color (U) YELLOW Normal YELLOW [facility] Comment on above: Performed By: #### U AMIC #### [facility] [address] [place] [address] Dr. Coco Rao Crystals LM Nom (Urine sed) NONE SEEN Normal NONE SEEN [facility] Comment on above: Performed By: #### U AMIC #### [facility] [address] [place] [address] Dr. Coco Rao Epithelial cells LM Ql (Urine sed) FEW Abnormal NONE SEEN /RARE [facility] Comment on above: Performed By: #### U AMIC #### [facility] [address] [place] [address] Dr. Coco Rao Glucose Ql (U) 1000 mg/dl Abnormal NEGATIVE [facility] Comment on above: Performed By: #### U AMIC #### [facility] [address] [address] [address] Coco Rao Hemoglobin Ql (U) Negative Normal NEGATIVE [facility] Comment on above: Performed By: #### U AMIC #### [facility] [address] [place] [address] Dr. Coco Rao Ketones Ql (U) 15 mg/dl Abnormal NEGATIVE [facility] Comment on above: Performed By: #### U AMIC #### [facility] [address] [place] [address] Dr. Coco Rao LEUKOCYTES Negative Normal NEGATIVE [facility] Comment on above: Performed By: #### U AMIC #### [facility] [address] [place] [address] Dr. Coco Rao MUCOUS NONE SEEN Normal NONE SEEN [facility] Comment on above: Performed By: #### U AMIC #### [facility] [address] [place] [address] Dr. Coco Rao Nitrite Ql (U) Negative Normal NEGATIVE [facility] Comment on above: Performed By: #### U AMIC #### [facility] [address] [place] [address] Dr. Coco Rao pH (U) 6.0 [pH] Normal 5-9 [facility] Comment on above: Performed By: #### U AMIC #### [facility] [address] [place] [address] Dr. Coco Rao RBC NONE SEEN Abnormal 0-2 [facility] Comment on above: Performed By: #### U AMIC #### [facility] [address] [place] [address] Dr. Coco Rao SPEC GRAVITY 1.020 Normal 1.005-<=1. 025 [facility] Comment on above: Performed By: #### U AMIC #### [facility] [address] [place] [address] Dr. Coco Rao UA PROTEIN Negative Normal NEGATIVE/ TRACE [facility] Comment on above: Performed By: #### U AMIC #### [facility] [address] [place] [address] Dr. Coco Rao Urobilinogen Qn (U) 1.0 {Joce'U}/dL Normal 0.2 - 1. 0 [facility] Comment on above: Performed By: #### U AMIC #### [facility] [address] [place] [address] Dr. Coco Rao WBC NONE SEEN Normal NONE SEEN [facility] Comment on above: Performed By: #### U AMIC #### [facility] [address] [address] [address] Coco Rao Vital Signs Date Time Vital Sign Value Performing Clinician Facility 08-19-2024 16:07-0500 Body mass index (BMI) [Ratio] 53.09 kg/m2 Joanhouston Carrillo AUTO 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 Work Phone: [facility] 08-19-2024 16:07-0500 Body temperature 97.81 [degF] Joan Lorena AUTO 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 Work Phone: [facility] 08-19-2024 16:07-0500 Body weight 182.53 kg Joan Lorena AUTO 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 Work Phone: [facility] 08-19-2024 16:07-0500 Diastolic blood pressure 100 mm[Hg] Joan Aichyinz AUTO 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 Work Phone: [facility] 08-19-2024 16:07-0500 Heart rate 98 /min Joan Cabrerahmanas AUTO 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 Work Phone: [facility] 08-19-2024 16:07-0500 Respiratory rate 20 /min Joan Lorena AUTO 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 Work Phone: [facility] 08-19-2024 16:07-0500 SaO2% (BldA) [Mass fraction] 97 % Joan Cabrerahyinz AUTO 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 Work Phone: [facility] 08-19-2024 16:07-0500 Systolic blood pressure 160 mm[Hg] Joan Lorena AUTO 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 Work Phone: [facility] 06-25-2024 08:59-0400 Body mass index (BMI) [Ratio] 52.43 kg/m2 Joan Aichholz AUTO 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 Work Phone: [facility] 06-25-2024 08:59-0400 Body temperature 98.1 [degF] Joan Carrillo AUTO 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 Work Phone: [facility] 06-25-2024 08:59-0400 Body weight 180.26 kg Joan Andresz AUTO 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 Work Phone: [facility] 06-25-2024 08:59-0400 Diastolic blood pressure 100 mm[Hg] Joan Andresz AUTO 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 Work Phone: [facility] 06-25-2024 08:59-0400 Heart rate 89 /min Joanhouston Andresz AUTO 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 Work Phone: [facility] 06-25-2024 08:59-0400 Respiratory rate 18 /min Joan Andresz AUTO 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 Work Phone: [facility] 06-25-2024 08:59-0400 SaO2% (BldA) [Mass fraction] 98 % Joan Andresz AUTO 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 Work Phone: [facility] 06-25-2024 08:59-0400 Systolic blood pressure 180 mm[Hg] Joan Andresz AUTO 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 Work Phone: [facility] 03-19-2024 18:00-0400 Hourly Rounding [facility] Comment on above: Result Comment: patient d/c. transported pt via w/c to main doors per families request 03-19-2024 17:00-0400 Hourly Rounding [facility] 03-19-2024 17:00-0400 Promise to Return Jason [facility] 03-19-2024 16:52-0400 Hourly Rounding [facility] 03-19-2024 16:52-0400 Promise to Return Jason [facility] 03-19-2024 16:00-0400 Blood Pressure Location [facility] 03-19-2024 16:00-0400 Body temperature 98.06 [degF] [facility] 03-19-2024 16:00-0400 Diastolic blood pressure 80 mm[Hg] [facility] 03-19-2024 16:00-0400 Heart rate 85 /min [facility] 03-19-2024 16:00-0400 Mean blood pressure 105 mm[Hg] [facility] 03-19-2024 16:00-0400 Respiratory rate 16 /min [facility] 03-19-2024 16:00-0400 SaO2% (BldA) [Mass fraction] 98 % Jasno [facility] 03-19-2024 16:00-0400 Systolic blood pressure 154 mm[Hg] Jason [facility] 03-19-2024 15:49-0400 Promise to Return Jason [facility] 03-19-2024 12:00-0400 Diastolic blood pressure 84 mm[Hg] [facility] 03-19-2024 12:00-0400 Systolic blood pressure 157 mm[Hg] [facility] 03-19-2024 06:00-0400 Body temperature 97.52 [degF] [facility] 03-19-2024 06:00-0400 Diastolic blood pressure 83 mm[Hg] [facility] 03-19-2024 06:00-0400 Heart rate 83 /min [facility] 03-19-2024 06:00-0400 Respiratory rate 18 /min [facility] 03-19-2024 06:00-0400 Systolic blood pressure 168 mm[Hg] [facility] 03-19-2024 01:25-0400 Blood Pressure Location [facility] 03-19-2024 01:25-0400 Body temperature 97.7 [degF] [facility] 03-19-2024 01:25-0400 Heart rate 92 /min [facility] 03-19-2024 01:25-0400 Mean blood pressure 103 mm[Hg] [facility] 03-19-2024 01:25-0400 Respiratory rate 20 /min [facility] 03-19-2024 01:25-0400 SaO2% (BldA) [Mass fraction] 97 % [facility] 03-18-2024 21:33-0400 gluc 275 mg/dL [facility] 03-18-2024 19:22-0400 Blood Pressure Location [facility] 03-18-2024 19:22-0400 Mean blood pressure 103 mm[Hg] [facility] 03-18-2024 19:21-0400 Body temperature 97.7 [degF] [facility] 03-18-2024 16:05-0400 Body temperature 98.24 [degF] [facility] 03-18-2024 12:29-0400 Mean blood pressure 118 mm[Hg] [facility] 03-17-2024 21:36-0400 gluc 218 mg/dL [facility] 03-17-2024 11:00-0400 Body temperature 98.24 [degF] [facility] 03-17-2024 11:00-0400 Mean blood pressure 106 mm[Hg] [facility] 03-16-2024 00:34-0400 Heart rate 98 /min [facility] 03-16-2024 00:34-0400 Mean blood pressure 98 mm[Hg] [facility] 03-16-2024 00:34-0400 Respiratory rate 19 /min Jason [facility] 03-15-2024 14:20-0400 Body temperature 96.98 [degF] [facility] 03-15-2024 14:20-0400 Respiratory rate 15 /min Jason [facility] 03-15-2024 14:10-0400 Respiratory rate 20 /min [facility] 03-15-2024 13:47-0400 Body temperature 97.34 [degF] [facility] 03-15-2024 05:00-0400 Heart rate 76 /min [facility] 03-14-2024 23:52-0400 Heart rate 82 /min Jason [facility] 03-05-2024 12:37-0400 Hourly Rounding Esvin Liz [facility] 03-05-2024 12:37-0400 Promise to Return Esvin Kilgore [facility] 03-05-2024 11:00-0400 Hourly Rounding Esvin Kilgore [facility] 03-05-2024 11:00-0400 Promise to Return Esvin Liz [facility] 03-05-2024 10:00-0400 Diastolic blood pressure 92 mm[Hg] Esvin Kilgore [facility] 03-05-2024 10:00-0400 Hourly Rounding Esvin Kilgore [facility] 03-05-2024 10:00-0400 Promise to Return Esvin Liz [facility] 03-05-2024 10:00-0400 Systolic blood pressure 168 mm[Hg] Esvin Kilgore [facility] 03-05-2024 09:45-0400 Body temperature 97.7 [degF] Esvin Liz [facility] 03-05-2024 09:45-0400 Diastolic blood pressure 91 mm[Hg] Esvin Kilgore [facility] 03-05-2024 09:45-0400 Heart rate 81 /min Esvin Liz [facility] 03-05-2024 09:45-0400 Mean blood pressure 119 mm[Hg] Esvin Kilgore [facility] 03-05-2024 09:45-0400 Respiratory rate 18 /min Esvin Kilgore [facility] 03-05-2024 09:45-0400 SaO2% (BldA) [Mass fraction] 98 % Esvin Kilgore [facility] 03-05-2024 09:45-0400 Systolic blood pressure 176 mm[Hg] Esvin Kilgore [facility] 03-05-2024 05:23-0400 gluc 165 mg/dL Esvin Liz [facility] 03-05-2024 03:55-0400 Respiratory rate 18 /min Esvin Kilgore [facility] 03-05-2024 03:50-0400 Heart rate 76 /min Esvin Kilgore [facility] 03-05-2024 03:50-0400 SaO2% (BldA) [Mass fraction] 98 % Esvin Kilgore [facility] 03-05-2024 03:49-0400 Diastolic blood pressure 86 mm[Hg] Esvin Kilgore [facility] 03-05-2024 03:49-0400 Mean blood pressure 111 mm[Hg] Esvin Kilgore [facility] 03-05-2024 03:49-0400 Systolic blood pressure 161 mm[Hg] Esvin Liz [facility] 03-05-2024 03:47-0400 Body temperature 97.88 [degF] Esvin Liz [facility] 03-04-2024 23:54-0400 gluc 169 mg/dL Esvin Liz [facility] 03-04-2024 23:30-0400 Body temperature 98.6 [degF] Esvin Kilgore [facility] 03-04-2024 23:30-0400 Mean blood pressure 104 mm[Hg] Esvin Kilgore [facility] 03-04-2024 23:30-0400 Respiratory rate 18 /min Esvin Kilgore [facility] 03-04-2024 23:30-0400 SaO2% (BldA) [Mass fraction] 97 % Esvin Liz [facility] 03-04-2024 20:09-0400 Mean blood pressure 104 mm[Hg] Esvin Kilgore [facility] 03-04-2024 20:08-0400 Body temperature 98.96 [degF] Esvin Liz [facility] 03-04-2024 19:50-0400 gluc 191 mg/dL Esvin Kilgore [facility] 03-04-2024 18:35-0400 Blood Pressure Location Esvin Kilgore [facility] 03-04-2024 18:35-0400 Body temperature 97.88 [degF] Esvin Kilgore [facility] 03-04-2024 18:35-0400 Heart rate 85 /min Esvin Kilgore [facility] 03-04-2024 17:39-0400 Mean blood pressure 92 mm[Hg] Esvin Kilgore [facility] 03-04-2024 17:00-0400 Mean blood pressure 103 mm[Hg] Esvin Liz [facility] 03-04-2024 14:15-0400 Body temperature 97.52 [degF] Esvin Kilgore [facility] 03-04-2024 14:15-0400 Heart rate 105 /min Esvin Hill [facility] Encounters Encounter Date Encounter Type Care Provider Facility Start: 10-04-2024 End: 10-04-2024 Refill Joan Aichholz AUTO 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 Work Phone: [facility] Comment on above: Type 2 diabetes vicky itus without complication, without long- term current use of insulin (CMS/HCC) (Primary Dx) Start: 09-28-2024 End: 09-28-2024 Office outpatient new 45 minutes Alexandre Daniel MD Work Phone: [facility] Comment on above: Hidradenitis suppura tiva (Primary Dx); High risk medication use Start: 09-28-2024 End: 09-28-2024 ambulatory ALEXANDRE DANIEL Not Available Start: 09-28-2024 End: 09-28-2024 Bamboo flowsheet Alexandre Daniel MD Work Phone: [facility] Start: 09-28-2024 End: 09-28-2024 Bamboo flowsheet Alexandre Daniel MD Work Phone: [facility] Start: 08-25-2024 End: 08-25-2024 Refill Joan Aichholz AUTO 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 Work Phone: [facility] Start: 08-20-2024 End: 08-21-2024 Refill Joan Aichholz AUTO 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 Work Phone: [facility] Comment on above: Gastroesophageal ref lux disease without esophagitis; Neuropathy Start: 08-19-2024 End: 08-19-2024 Office outpatient visit 25 minutes Joan Aichholz AUTO 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 Work Phone: [facility] Comment on above: Primary hypertension (CMS/HCC) (Primary Dx); Type 2 diabetes mellitus without complication, without long-term current use of insulin (CMS/HCC); Hidradenitis suppurativa; Morbid obesity (CMS/HCC); BMI 50.0-59.9, adult (CMS/HCC) Start: 08-19-2024 End: 08-19-2024 ambulatory JOAN AICHHOLZ Not Available Start: 08-19-2024 End: 08-19-2024 Bamboo flowsheet Joan Aichholz AUTO 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 Work Phone: [facility] Start: 08-19-2024 End: 08-19-2024 Bamboo flowsheet Joan Aichholz AUTO 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 Work Phone: [facility] Start: 08-17-2024 End: 08-17-2024 Refill Joan Aichholz AUTO 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 Work Phone: [facility] Comment on above: Hidradenitis suppura tiva (Primary Dx) Start: 08-10-2024 End: 08-10-2024 Refill Joan Aichholz AUTO 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 Work Phone: [facility] Comment on above: Type 2 diabetes vicky itus without complication, without long- term current use of insulin ([facility]) (Primary Dx) Start: 08-05-2024 End: 08-05-2024 Refill Joan Aichholz AUTO 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 Work Phone: [facility] Comment on above: Hidradenitis suppura tiva (Primary Dx) Primary hypertension ([facility]); Hypertriglyceridemia ([facility]); Anxiety and depression ([facility]); Type 2 diabetes mellitus with other skin complication, without long-term current use of insulin ([facility]); Neuropathy; Overactive bladder; Gastroesophageal reflux disease without esophagitis Start: 07-31-2024 End: 07-31-2024 Refill Joan Aichholz AUTO 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 Work Phone: [facility] Comment on above: Primary hypertension ([facility]/HCC) Start: 07-27-2024 End: 07-27-2024 Refill Joan Aichholz AUTO 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 Work Phone: [facility] Comment on above: Primary hypertension ([facility]); Type 2 diabetes mellitus without complication, without long-term current use of insulin ([facility]) Neuropathy; Primary hypertension (CMS/HCC) Primary hypertension (CMS/HCC) Start: 07-24-2024 End: 07-24-2024 Orders Only Joan Aichholz AUTO 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 Work Phone: [facility] Comment on above: Lung nodule (Primary Dx) Start: 07-13-2024 End: 07-13-2024 Refill Joan Aichholz AUTO 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 Work Phone: [facility] Comment on above: Type 2 diabetes vicky itus with other skin complication, without long-term current use of insulin (CMS/HCC) Start: 07-02-2024 End: 07-02-2024 Refill Joan Aichholz AUTO 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 Work Phone: [facility] Comment on above: Hidradenitis suppura tiva (Primary Dx) Start: 06-29-2024 End: 06-29-2024 ambulatory Demarco Collins [place] Start: 06-25-2024 End: 06-25-2024 Bamboo flowsheet Joan Aichholz AUTO 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 Work Phone: [facility] Start: 06-25-2024 End: 06-25-2024 Bamboo flowsheet Joan Aichholz AUTO 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 Work Phone: [facility] Start: 06-25-2024 End: 06-25-2024 Office outpatient visit 25 minutes Joan Aichholz AUTO 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 Work Phone: [facility] Comment on above: Type 2 diabetes [...] 06-15-2024 End: 06-15-2024 Orders Only Joan Aichholz AUTO 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 Work Phone: [facility] Comment on above: Lung nodule (Primary Dx) Start: 06-13-2024 End: 06-13-2024 Clinisync Result Encounter Joan Reeceholz AUTO 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 Work Phone: [facility] External Department Unsolicited Start: 06-13-2024 End: 06-13-2024 Clinisync Result Encounter Joan Cabrerahholz AUTO 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 Work Phone: [facility] External Department Unsolicited Start: 06-05-2024 End: 06-16-2024 Refill Joan Cabrerahholz AUTO 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 Work Phone: [facility] Comment on above: Type 2 diabetes vicky itus without complication, without long- term current use of insulin (CMS/HCC) (Primary Dx) Type 2 diabetes vicky itus with other skin complication, without long-term current use of insulin ([facility]) (Primary Dx) Start: 04-03-2024 End: 04-03-2024 ambulatory Demarco Collins Facility[place] Start: 03-26-2024 Patient encounter procedure Joan Dmitryz AUTO 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 Work Phone: [facility] Start: 03-26-2024 End: 03-26-2024 ambulatory JOAN CABRERAHHOLZ Not Available Start: 03-25-2024 End: 03-25-2024 ambulatory Shannon Gallegos Facility:[facility] Start: 03-23-2024 ambulatory Demarco Collins Facility:[facility] Start: 03-14-2024 End: 03-19-2024 Evaluation and management of inpatient Salvatore WOOTEN Facility:[facility] Start: 03-14-2024 Emergency department patient visit Demarco Ferreira Facility:[facility] Start: 03-14-2024 End: 03-19-2024 Evaluation and management of inpatient Jason West [facility] Start: 03-04-2024 End: 03-05-2024 ambulatory Bryce Gibson Facility:[facility] Start: 03-04-2024 Emergency department patient visit Bryce Gibson Facility:[facility] Start: 03-04-2024 End: 03-05-2024 Observation Esvin Hill [facility] Start: 10-10-2023 End: 10-10-2023 ambulatory JOAN AICHHOLZ Not Available Start: 08-13-2023 End: 08-14-2023 ambulatory Alesha Christensen Facility:[facility] Start: 12-26-2022 End: 12-27-2022 ambulatory SAFETY DIRECTOR JOAN AICHHOLZ Facility: Start: 11-27-2022 End: 11-28-[address] SALVATORE MATHUR . Facility: Start: 11-05-2022 End: 11-05-2022 Patient encounter procedure Salvatore MATHUR [facility] Start: 10-29-2022 End: 10-29-2022 ambulatory SAFETY DIRECTOR JOAN AICHHOLZ Facility: Start: 06-18-2022 End: 06-18-2022 ambulatory SAFETY DIRECTOR JOAN AICHHOLZ Facility:[facility] Start: 05-11-2022 End: 05-11-2022 ambulatory SAFETY DIRECTOR JOAN AICHHOLZ Facility:[facility] Start: 05-10-2022 End: 05-11-2022 ambulatory SAFETY DIRECTOR JOAN AICHHOLZ Facility:[facility] Procedures Date Procedure Procedure Detail Performing Clinician Start: 07-27-2024 Colonoscopy Joan Reeceh olz AUTO 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 Work Phone: Start: 06-13-2024 ALL CBC WITH AUTO DIFF Joan Aichholz AUTO 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 Work Phone: Start: 03-21-2016 Drainage of scrotal abscess Salvatore MATHUR Tonsillectomy Salvatore MATHUR Plan of Treatment Date Care Activity Detail Author Start: 07-27-2034 Screening for malign ant neoplasm of colon [facility] Start: 03-26-2025 Medicare Annual Well ness (AWV) Medicare Annual Wellness (AWV) [facility] Start: 03-19-2025 Urine screening for protein Diabetes: Urine Protein Screening [facility] Start: 01-21-2025 End: 07-24-2025 CT Chest W contrast IV CT chest w IV contrast Imaging Routine Lung nodule Expected: 01/21/2025, Expires: 07/24/2025 [facility] Work Phone: Comment on above: Expected: 01/21/2025 , Expires: 07/24/2025 Start: 10-21-2024 End: 10-21-2024 Patient encounter procedure 10/21/2024 4:30 PM EST Office Visit [facility] [address] [place] [address] Joan Carrillo NP [address] [place] [address] [facility] Start: 09-28-2024 End: 09-28-2024 Patient encounter procedure [facility] Comment on above: Hidradenitis suppura tiva Start: 09-28-2024 End: 09-28-2025 Alanine aminotransferase [Enzymatic activity/volume] in Serum or Plasma ALT Lab Routine Hidradenitis suppurativa High risk medication use Expected: 09/28/2024 (Approximate), Expires: 09/28/2025 [facility] Comment on above: Expected: 09/28/2024 (Approximate), Expires: 09/28/2025 Start: 09-28-2024 End: 09-28-2025 CBC W Auto Differential panel - Blood CBC and differential Lab Routine Hidradenitis suppurativa High risk medication use Expected: 09/28/2024 (Approximate), Expires: 09/28/2025 [facility] Comment on above: Expected: 09/28/2024 (Approximate), Expires: 09/28/2025 Start: 09-28-2024 End: 09-28-2025 Hepatitis C virus Ab [Presence] in Serum or Plasma by Immunoassay Hepatitis C antibody Lab Routine Hidradenitis suppurativa High risk medication use Expected: 09/28/2024 (Approximate), Expires: 09/28/2025 [facility] Comment on above: Expected: 09/28/2024 (Approximate), Expires: 09/28/2025 Start: 09-28-2024 End: 09-28-2025 Hiv-1 rna, quantitative by pcr Hiv-1 rna, quantitative by pcr Lab Routine Hidradenitis suppurativa High risk medication use Expected: 09/28/2024 (Approximate), Expires: 09/28/2025 [facility] Comment on above: Expected: 09/28/2024 (Approximate), Expires: 09/28/2025 Start: 09-28-2024 End: 09-28-2025 TB test, cell immune measure TB test, cell immune measure Lab Routine Hidradenitis suppurativa High risk medication use Expected: 09/28/2024 (Approximate), Expires: 09/28/2025 [facility] Work Phone: Comment on above: Expected: 09/28/2024 (Approximate), Expires: 09/28/2025 Start: 09-13-2024 Hemoglobin A1c measurement Robina betes: Hemoglobin A1C [facility] Start: 08-19-2024 End: 08-19-2024 Patient encounter procedure 08/19/2024 4:15 PM EST Office Visit [facility] [address] [place] [id number] Joan Carrillo, RAFAELA [address] [place] [phone] Arrived [facility] Comment on above: Arrived Start: 07-27-2024 End: 07-27-2024 Patient encounter procedure 07/27/2024 3:40 PM EST Office Visit [facility] [address] [place] [address] Joan Carrillo, RAFAELA [address] [place] [phone] [facility] Start: 06-25-2024 End: 06-25-2024 [facility] Comment on above: Ar[facility] Start: 06-15-2024 End: 06-15-2025 CT Chest W contrast IV CT chest w IV contrast Imaging Routine Lung nodule Expected: 06/15/2024 (Approximate), Expires: 06/15/2025 [facility] Work Phone: Comment on above: Expected: 06/15/2024 (Approximate), Expires: 06/15/2025 Start: 04-24-2024 ambulatory Ambulatory Facility:[facility] Start: 1994 Urine screening for protein Diabetes: Urine Protein Screening [facility] Start: 1985 Glaucoma screening Diabetes: R etinopathy Screening [facility] Start: 1975 Hemoglobin A1c measurement Robina betes: Hemoglobin A1C [facility] Start: 1975 Screening for malign ant neoplasm of colon [facility] Immunizations Immunization Date Immunization Notes Care Provider Fa ryann 04-25-2021 SARS-CoV-2 (COVID-19 ) mRNA BNT-162b2 [employer] Salvatore [employer] [facility] 03-31-2021 SARS-CoV-2 (COVID-19 ) mRNA BNT-162b2 [employer] Salvatore [employer] [facility] Payers Date Payer Category Payer Medicare HUMANA MEDICARE ADVANTAGE HU[employer]NA MEDICARE [id number] 2021-Present [id number] [place] [id number] 2021 Medicare (Managed Care) HUMANA M EDICARE ADVANTAGE [id number] 1975 Unknown [id number] 2.16.840.1.009038.3.579. 2.593 1975 Unknown [id number] 2.16.840.1.731495.3.579. 2.593 1975 Unknown [id number] 2.16.840.1.222617.3.579. 2.593 1975 Unknown [id number] 2.16.840.1.229867.3.579. 2.593 1975 Unknown [id number] 2.16.840.1.629615.3.579. 2.593 1975 Unknown [id number] 2.16.840.1.366028.3.579. 2.593 1975 Unknown [id number] 2.16.840.1.817022.3.579. 2.593 1975 Unknown [id number] 2.16.840.1.611017.3.579. 2.727 1975 Unknown [id number] 2.16.840.1.249553.3.579. 2.727 1975 Unknown [id number] 2.16.840.1.762030.3.579. 2.727 1975 Unknown [id number] 2.16.840.1.410367.3.579. 2.727 1975 Unknown [id number] 2.16.840.1.253900.3.579. 2.727 1975 Unknown [id number] 2.16.840.1.748534.3.579. 2.727 1975 Unknown [id number] 2.16.840.1.756367.3.579. 2.727 1975 Unknown [id number] 2.16.840.1.208337.3.579. 2.727 1975 Unknown [id number] 2.16.840.1.865635.3.579. 2.727 1975 Unknown [id number] 2.16.840.1.403087.3.579. 2.727 1975 Unknown [id number] 2.16.840.1.525565.3.579. 2.727 1975 Unknown [id number] 2.16.840.1.883338.3.579. 2.727 1975 Unknown [id number] 2.16.840.1.865129.3.579. 2.727 1975 Unknown [id number] 2.16.840.1.369994.3.579. 2.72 1975 Unknown [id number] 2.16.840.1.606937.3.579. 2.72 1975 Unknown [id number] 2.16.840.1.019553.3.579. 2.72 1975 Unknown [id number] 2.16.840.1.170497.3.579. 2.727 1975 Unknown [id number] 2.16.840.1.251561.3.579. 2.72 1975 Unknown [id number] 2.16.840.1.198515.3.579. 2.727 1975 Unknown [id number] 2.16.840.1.102175.3.579. 2.72 1975 Unknown [id number] 2.16.840.1.935430.3.579. 2.1259 1975 Unknown [id number] 2.16.840.1.387236.3.579. 2.9 1975 Unknown [id number] 2.16.840.1.304802.3.579. 2.1259 1975 Unknown [id number] 2.16.840.1.284008.3.579. 2.1259 1975 Unknown [id number] 2.16.840.1.773678.3.579. 2.1259 1959 Medicare [id number] Social History Date Type Detail Facility Start: 11-05-2022 End: 10-10-2023 Tobacco smoking status Ex-smoker (finding) [facility] Start: 03-26-2024 End: 09-28-2024 Sex Assigned At Male [facility] History of tobacco use Current smoker [facility] History of tobacco use Cigarette Smoker [facility] Start: 10-10-2023 Tobacco use and exposure Smokeless tobacco non-user [facility] Start: 03-26-2024 End: 09-28-2024 Alcoholic beverage intake Lifetime non-drinker (finding) [facility] Start: 03-26-2024 End: 09-28-2024 History of Social function [facility] Start: 10-10-2023 Alcohol Comment caffine: diet mountain dew 3-4 daily [facility] Start: 1975 Sex assigned at Not on file N [facility] Medical Equipment Procedure Code Equipment Code Equipment Origin al Text Equipment Identifier Dates [id number] Start: 08-07-2023 End: 09-13-2024 1 each by Other route Daily 1 each by Other route if needed. [id number] Start: 07-13-2024 End: 10-21-2024 1 each by Other route Daily 1 each by Other route if needed. [id number] Start: 08-05-2024 End: 11-13-2024 Functional Status Date Assessment Result Facility 03-14-2024 Functional Status N/A [facility] 03-14-2024 Functional Status [facility] 03-04-2024 Functional Status N/A [facility] 03-04-2024 Functional Status [facility] 11-05-2022 Functional Status N/A [facility] Clinical Notes 11-05-2022 to 09-28-2024 Alexandre Daniel MD - 09/28/2024 3:30 PM Roxana Carrillo NP - 08/19/2024 5:51 PM Roxana Carrillo NP - 08/19/2024 5:50 PM Roxana Carrillo NP - 08/19/2024 4:41 PM ESTPatient Instructions Note Date & Type Note Facility 09-28-2024 History of Present illness Narrative Images from the original note were not included. Rash Location: thighs, groin, waistline Duration: 15 years Quality: painful, itchy Associated symptoms: red, painful bumps Treatments tried: Bactrim DS, Keflex, minocycline Current treatments: finished doxycycline 100 mg bid 1 month ago (took x 1 year) New patient, referred by Prerna Carrillo NP All pertinent medical history, medications, and allergies were reviewed. General Exam: alert, oriented to person, place, and time, normal affect, well appearing Unaccompanied A focused exam completed based on patient reported problems, see below: 1. Hidradenitis suppurativa Left Abdomen (side) - Lower, Left Inguinal Area, Left Medial Thigh, Left Thigh - Anterior, Right Abdomen (side) - Lower, Right Inguinal Area, Right Medial Thigh, Right Thigh - Anterior Erythematous nodules, double comedones, and scarring. Vega Stage 3. Flaring today The patient was counseled that hidradenitis is a chronic inflammatory disorder of the hair follicles and sweat glands. There appears to be a genetic predisposition for this condition. Quitting smoking, weight loss, and wearing looser fitting clothing may help decrease the severity/amount of flares. The patient was informed that treatment can be difficult and depends on the severity of the condition. Treatment options were explained which include topical antibacterials, oral antibiotics, and Humira. Start Hibiclens 2-3x/week in the shower from the neck down and start clindamycin lotion every day prn for flares, hold if clear. Will attempt to get coverage of Humira and phone patient with status of coverage. Patient denies history of CHF, IBD, or MS. Reviewed side effects with patient including increased risk of infections and injection site reactions. Recommended holding medication dose if patient has an active infection and can resume once cleared. Lab slip given today for biologics panel. Plan to recheck in 3 months after starting Humira. Patient with severe disease with permanent scarring and tracts that topicals alone will not control, has failed multiple oral antibiotics, would greatly benefit from injectable biologic to help control morbidity and progression of disease. Patient has quit smoking to help prevent flares with minimal improvement. Further delay of injectable therapy will cause further permanent sinus tracts and more emotional and physical morbidity. Related Procedures Ambulatory referral to Dermatology TB test, cell immune measure Hiv-1 rna, quantitative by pcr Hepatitis C antibody ALT CBC and differential Related Medications Chlorhexidine Gluconate (Hibiclens) 4 % solution Use from the neck down in shower then rinse off 2-3x/week clindamycin (Cleocin T) 1 % lotion Apply thin layer to affected areas on leg, groin, abdomen, once daily, 30 day supply 2. High risk medication use Related Procedures TB test, cell immune measure Hiv-1 rna, quantitative by pcr Hepatitis C antibody ALT CBC and differential Next Visit: 3 months documented in this encounter [facility] 08-19-2024 History of Present illness Narrative Associated Problem(s): Morbid obesity (CMS/HCC) He was supposed to be referred for weight loss surgery through [facility] This process seems to be no progressing, states he has called them and no response Associated Problem(s): Hidradenitis suppurativa New derm in 10/03 Will keep on doxy at this time Monitor for fever, monitor blood sugars as well Associated Problem(s): Hypertension (CMS/HCC) Please check blood pressure daily and record DASH diet Limit caffeine Take medication as directed Contact office if chest pain, pressure, dizziness, shortness of breath, swelling legs Recommend slow position changes Current meds: losartan, amlodipine, increase 10mg amlodipine Associated Problem(s): Type 2 diabetes mellitus, without long-term current use of insulin (CMS/HCC) Check blood sugars daily, notify if <70 or >200. Take medications (pills or insulin) as directed. Monitor for s/s of hypoglycemia (sweaty, dizziness, nausea, vomiting, or shakiness). Watch for increase in thirst, urination, or appetite. Inspect feet frequently monitoring for open wounds , and also recommend yearly eye exam. Pt should attempt to remain as physically active as chronic conditions allow, as well as trying to follow a diet low in carbohydrates, and simple sugars. In the past was on mounjaro and did well from weight loss and blood sugar control, then d/t insurance switched to ozempic caused abd pain/nausea. Never had pancreatitis Also trulicity and rybelsus in the past, did not tolerated Will try again with mounjaro Current drugs: metformin, glimeperide, farxiga Also on statin and will add asa Images from the original note were not included. Christian Shelby is a 48 y.o. male presents with chief complaint of No chief complaint on file. HPI: Has HS: has seen several dermatology practices over the years, does not seem it is getting much better However, his most problem area is his scrotal region at this time. He has called a few times in the last couple weeks d/t forming infection pockets, was on keflex, more recently switched to doxy He was asked to come in to have an evaluation for this since it was in the scrotal region He does report that his current lesion did break open and is draining denies fever or chills Diabetes He presents for his follow-up diabetic visit. He has type 2 diabetes mellitus. His disease course has been stable. There are no hypoglycemic associated symptoms. Pertinent negatives for hypoglycemia include no dizziness, headaches, nervousness/anxiousness, pallor, seizures or tremors. Associated symptoms include fatigue and polyuria. Pertinent negatives for diabetes include no blurred vision, no foot paresthesias, no polydipsia, no polyphagia, no visual change, no weakness and no weight loss. There are no hypoglycemic complications. Symptoms are stable. There are no diabetic complications. Pertinent negatives for diabetic complications include no PVD. Risk factors for coronary artery disease include diabetes mellitus, dyslipidemia, hypertension, male sex, obesity and sedentary lifestyle. Current diabetic treatment includes oral agent (triple therapy). His overall blood glucose range is 140-180 mg/dl. An ENEIDA inhibitor/angiotensin II receptor des is being taken. He does not see a outsole rounder.Eye exam is not current. Hypertension This is a chronic problem. The current episode started more than 1 year ago. The problem is unchanged. The problem is uncontrolled. Pertinent negatives include no blurred vision, headaches, peripheral edema or shortness of breath. Risk factors for coronary artery disease include diabetes mellitus, dyslipidemia, male gender and obesity. Past treatments include calcium channel blockers and angiotensin blockers. The current treatment provides moderate improvement. There are no compliance problems. There is no history of kidney disease, CAD/IL or PVD. SUBJECTIVE: MEDICATIONS: Current Outpatient Medications Medication Instructions amLODIPine (NORVASC) 5 mg, Oral, Daily atorvastatin (LIPITOR) 20 mg, Oral, Every evening Blood Glucose Monitoring Suppl (True Metrix Go Glucose Meter) w/Device kit 1 each, Other, Daily, USE 1 TIME DAILY TO CHECK BLOOD SUGAR busPIRone (BUSPAR) 5 mg, Oral, 2 times daily dapagliflozin (FARXIGA) 10 mg, Oral, Daily doxycycline (VIBRA-TABS) 100 mg, Oral, 2 times daily, Take with a full glass of water and do not lie down for at least 30 minutes after. gabapentin (NEURONTIN) 300 mg, Oral, Nightly glimepiride (AMARYL) 4 mg, Oral, Daily before breakfast glucose blood (True Metrix Blood Glucose Test) test strip 1 each, Other, Daily, 1 each by Other route if needed. losartan (COZAAR) 100 mg, Oral, Daily metFORMIN (GLUCOPHAGE) 1,000 mg, Oral, 2 times daily with meals oxybutynin XL (DITROPAN-XL) 5 mg, Oral, Daily pantoprazole (PROTONIX) 20 mg, Oral, 2 times daily venlafaxine XR (EFFEXOR XR) 75 mg, Oral, Daily ALLERGIES: No Known Allergies REVIEW OF SYMPTOMS: Review of Systems Constitutional: Positive for fatigue. Negative for activity change, appetite change, unexpected weight change and weight loss. HENT: Negative for ear pain, nosebleeds, sneezing, trouble swallowing and voice change. Eyes: Negative for blurred vision, pain, discharge and visual disturbance. Respiratory: Negative for apnea, chest tightness, shortness of breath and wheezing. Cardiovascular: Negative for leg swelling. Gastrointestinal: Negative for abdominal distention, blood in stool, constipation and diarrhea. Genitourinary: Negative for decreased urine volume, difficulty urinating, dysuria and hematuria. Skin: Positive for wound. Negative for color change and pallor. Neurological: Negative for dizziness, tremors, seizures, weakness and headaches. Psychiatric/Behavioral: Negative for agitation, decreased concentration, hallucinations, self-injury and suicidal ideas. The patient is not nervous/anxious. Hematological: Negative for adenopathy. Does not bruise/bleed easily. Endocrine: Positive for polyuria. Negative for cold intolerance, heat intolerance, polydipsia and polyphagia. Allergic/Immunologic: Negative for environmental allergies and food allergies. PAST MEDICAL HISTORY Past Medical History: Diagnosis Date Anxiety and depression ([facility]) 09/24/2023 Arthritis Boils of multiple sites 09/24/2023 Elevated serum protein level 09/24/2023 Hidradenitis suppurativa 09/24/2023 Hypertension ([facility]) Hypertriglyceridemia ([facility]) 09/24/2023 Lung nodule 09/24/2023 Overactive bladder Pruritus Type 2 diabetes mellitus with skin complication, without long-term current use of insulin ([facility]) 08/27/2023 Past Surgical History: Procedure Laterality Date HERNIA REPAIR TOE SURGERY family history is not on file. OBJECTIVE: Visit Vitals BP (!) 160/100 (BP Location: Left arm, Patient Position: Sitting, BP Cuff Size: Large adult long) Pulse 98 Temp 97.8 F (Temporal) Resp 20 Wt (!) 402 lb 6.4 oz SpO2 97% BMI 53.09 kg/m Smoking Status Former BSA 3.07 m Physical Exam Vitals and nursing note reviewed. Constitutional: Appearance: Normal appearance. He is obese. HENT: Head: Normocephalic. Right Ear: External ear normal. Left Ear: External ear normal. Nose: Nose normal. Mouth/Throat: Mouth: Mucous membranes are moist. Pharynx: Oropharynx is clear. Eyes: Extraocular Movements: Extraocular movements intact. Conjunctiva/sclera: Conjunctivae normal. Cardiovascular: Rate and Rhythm: Normal rate and regular rhythm. Pulses: Normal pulses. Heart sounds: Normal heart sounds. Pulmonary: Effort: Pulmonary effort is normal. Breath sounds: Normal breath sounds. No wheezing or rales. Abdominal: General: Bowel sounds are normal. Palpations: Abdomen is soft. Tenderness: There is no abdominal tenderness. Genitourinary: Comments: Scrotal sack examine: several open lesions c/w HS no warmth, minimal erythema Generalized induration and tenderness about he scrotal sack, no acute testicle pain with palpation Musculoskeletal: Cervical back: Neck supple. Skin: General: Skin is warm and dry. Capillary Refill: Capillary refill takes 2 to 3 seconds. Neurological: General: No focal deficit present. Mental Status: He is alert. Psychiatric: Mood and Affect: Mood normal. Behavior: Behavior normal. Thought Content: Thought content normal. Judgment: Judgment normal. ASSESSMENT AND PLAN: No follow-ups on file. Problem List Items Addressed This Visit Hypertension ([facility]) Please check blood pressure daily and record DASH diet Limit caffeine Take medication as directed Contact office if chest pain, pressure, dizziness, shortness of breath, swelling legs Recommend slow position changes Current meds: losartan, amlodipine, increase 10mg amlodipine Relevant Medications amLODIPine (Norvasc) 10 MG tablet Hidradenitis suppurativa New derm in 10/03 Will keep on doxy at this time Monitor for fever, monitor blood sugars as well BMI 50.0-59.9, adult ([facility]) Morbid obesity ([facility]) He was supposed to be referred for weight loss surgery through [facility] This process seems to be no progressing, states he has called them and no response Type 2 diabetes mellitus, without long-term current use of insulin ([facility]) - Primary Check blood sugars daily, notify if <70 or >200. Take medications (pills or insulin) as directed. Monitor for s/s of hypoglycemia (sweaty, dizziness, nausea, vomiting, or shakiness). Watch for increase in thirst, urination, or appetite. Inspect feet frequently monitoring for open wounds , and also recommend yearly eye exam. Pt should attempt to remain as physically active as chronic conditions allow, as well as trying to follow a diet low in carbohydrates, and simple sugars. In the past was on mounjaro and did well from weight loss and blood sugar control, then d/t insurance switched to ozempic caused abd pain/nausea. Never had pancreatitis Also trulicity and rybelsus in the past, did not tolerated Will try again with mounjaro Current drugs: metformin, glimeperide, farxiga Also on statin and will add asa Relevant Medications Tirzepatide (Mounjaro) 2.5 MG/0.5ML solution auto-injector documented in this encounter [facility] 08-19-2024 Instructions Joan Carrillo NP - 08/19/2024 4:15 PM EST Finish atb, keep dermatology appt Will see about the mounjaro Increase your amlodipine to 10mg daily continue all other meds documented in this encounter [facility] 08-05-2024 History of Present illness Narrative Associated Problem(s): Hidradenitis suppurativa Spoke w pt on the phone 08/05/24, is requesting a refill of keflex Also he reports he has not received a call from the new dermatology referral. It does look as though they had tried to reach out and closed the referral d/t no response I did let him know this, I did provide the number to [facility] dermatology: [phone], and the provider's name was Alexandre Daniel and that he could call to schedule the appt. He took down the phone number and will call I will send in atb for him documented in this encounter [facility] 07-24-2024 History of Present illness Narrative Associated Problem(s): Lung nodule Repeat in 01/31 documented in this encounter [facility] 06-30-2024 Note Progress Note-Physic fredy Patient: CHRISTIAN [...] Type II diabetes mellitus / SNOMED CT 701816480 / Confirmed Smoker / SNOMED CT 290359073 / Confirmed Encounter for screening colonoscopy / SNOMED CT 439982350 / Confirmed Morbid obesity / SNOMED CT 133181268 / Confirmed Melena / SNOMED CT 8147601 / Confirmed Recurrent scrotal infection / SNOMED CT 8309032417 / Confirmed Abdominal hernia / SNOMED CT 12670354 / Confirmed Left groin mass / SNOMED CT 1841732239 / Confirmed Gastritis / SNOMED CT 3207872 / Confirmed Anxiety / SNOMED CT 30502234 / Confirmed Scrotal abscess / SNOMED CT 32695128 / Confirmed Resolved: At risk for falls / SNOMED CT 176169010 Problem added when Risk for Falls Careplan was initiated. Resolved due to patient discharge. Canceled: Orchitis / SNOMED CT 499530869 Canceled: Scrotal infection / SNOMED CT 2991259079 Canceled: Epididymitis / SNOMED CT 46256701 Histories Procedure history: Colonoscopy ([id number]) on 04/03/2024 at 48 Years. Comments: 04/03/2024 15:52 Flores Tesfaye RN normal Esophagogastroduodenoscopy ([id number]) on 04/03/2024 at 48 Years. Comments: 04/03/2024 15:53 Flores Tesfaye RN duodenitis, antral biiopsy Drainage of scrotal abscess ([id number]) on 03/21/2016 at 40 Years. Tonsillectomy ([id number]). Social History Social & Psychosocial Habits Alcohol [...] adequate air exchange. Cardiovascular: Regular rhythm. Plan [place] [employer] (ASA) physical status classification: Class IV. Anesthetic Preoperative Plan: Anesthesia General. [facility] Comment on above: Result Comment: Elec tronically [...] when meets criteria ( To home ). [facility] Comment on above: Result Comment: Elec tronically Signed By: Roverto Sharpe DO, Ambrosio Villeda.jeniffer\Date and Time Signed: 06/30/24 17:44 EDT 06-29-2024 [...] is negative. Procedure history: EGD - esophagogastroduodenoscopy ([id number]) on 06/29/2024 at 48 Years. Colonoscopy ([id number]) on 04/03/2024 at 48 Years. Comments: 04/03/2024 15:52 Flores Tesfaye RN normal Esophagogastroduodenoscopy ([id number]) on 04/03/2024 at 48 Years. Comments: 04/03/2024 15:53 Flores Tesfaye RN duodenitis, antral biiopsy Drainage of scrotal abscess ([id number]) on 03/21/2016 at 40 Years. Tonsillectomy ([id number]). Social History Social & Psychosocial Habits Alcohol [...] Progressing as expected. H&P not OP note [facility] Comment on above: Result Comment: Elec tronically [...] also be tested for impaired gastrointestinal motility. [facility] 06-25-2024 History of Present illness Narrative Associated [...] like a new referral to a different linderman operator Pt would like to talk about [...] being taken. He does not see a outsole rounder.Eye exam is not current. SUBJECTIVE: MEDICATIONS: Current [...] Medical History: Diagnosis Date Anxiety and depression ([facility]/HCC) 09/24/2023 Arthritis Boils of multiple sites 09/24/2023 Elevated serum protein level 09/24/2023 Hidradenitis suppurativa 09/24/2023 Hypertension (CMS/HCC) Hypertriglyceridemia (CMS/HCC) 09/24/2023 Lung nodule 09/24/2023 Overactive bladder Pruritus Type 2 diabetes mellitus with skin complication, without long-term current use of insulin (CMS/[facility]) 08/27/2023 No past surgical history on file. [...] Relevant Orders Ambulatory referral to Dermatology Hypertriglyceridemia ([facility]/HCC) Relevant Medications atorvastatin (Lipitor) 20 MG tablet Anxiety and depression ([facility]/HCC) Cont effexor Relevant Medications busPIRone (Buspar) 5 MG tablet venlafaxine XR (Effexor XR) 75 MG 24 hr capsule BMI 50.0-59.9, adult ([facility]) Morbid obesity ([facility]) Weight loss surgery Type 2 diabetes mellitus, without long-term current use of insulin ([facility]) Will increase farxiga to 10mg daily Cont current meds Relevant Medications glimepiride (Amaryl) 4 MG tablet metFORMIN (Glucophage) 1000 MG tablet dapagliflozin (Farxiga) 10 MG Gastroesophageal reflux disease without esophagitis - Primary Cont PPI Relevant Medications pantoprazole (ProtoNix) 20 MG EC tablet Neuropathy Relevant Medications gabapentin (Neurontin) 300 MG capsule documented in this encounter [facility] 04-04-2024 Note Progress Note-Physic fredy Patient: CHRISTIAN [...] Type II diabetes mellitus / SNOMED CT 995727774 / Confirmed Smoker / SNOMED CT 113725608 / Confirmed Encounter for screening colonoscopy / SNOMED CT 535270401 / Confirmed Morbid obesity / SNOMED CT 808342518 / Confirmed Melena / SNOMED CT 2869513 / Confirmed Recurrent scrotal infection / SNOMED CT 0299517708 / Confirmed Abdominal hernia / SNOMED CT 45193621 / Confirmed Left groin mass / SNOMED CT 9063932989 / Confirmed Anxiety / SNOMED CT 56273177 / Confirmed Scrotal abscess / SNOMED CT 67345694 / Confirmed Resolved: At risk for falls / SNOMED CT 588578608 Problem added when Risk for Falls Careplan was initiated. Resolved due to patient discharge. Canceled: Orchitis / SNOMED CT 553112565 Canceled: Scrotal infection / SNOMED CT 4492650478 Canceled: Epididymitis / SNOMED CT 56369881 Histories Procedure history: Drainage of scrotal abscess ([id number]) on 03/21/2016 at 40 Years. Tonsillectomy (446635781). Social History Social & Psychosocial Habits Alcohol [...] adequate air exchange. Cardiovascular: Regular rhythm. Plan [place] [employer] (ASA) physical status classification: Class IV. Anesthetic Preoperative Plan: Anesthesia General. [facility] Comment on above: Result Comment: Elec tronically Signed By: Roverto Sharpe DO, Ambrosio Bryson\.jeniffer\Date and Time Signed: 04/04/24 10:18 EDT 04-04-2024 [...] when meets criteria ( To home ). [facility] Comment on above: Result Comment: Elec tronically [...] activities are safe for you. ? Take nlnc-wie-chutqva and prescription medicines only as told by [...] provider. Document Revised: 12/05/2022 Document Reviewed: 12/05/2022 [employer] Patient Education ? 2022 [employer] Infectious Disease Duodenitis Duodenitis is inflammation [...] scarring or [place] (more content not included)... [facility] 03-22-2024 Note Discharge Summary DISCHARGE SUMMARY [address] [address] CHRISTIAN SHELBY Date of : 1975 48 [...] and diabetes. Patient was last seen at [facility] on 03/04 when he was admitted for observation given pain and possible obstruction of his known chronic ventral hernia (over 20 years). At that time, the hernia was partially reduced and he was able to tolerate a diet without issue and discharged home. 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 on the ground, and when he got [...] 03/16/2024: +flatus, +nausea but no vomiting. on REFRIGERATION SERVICE TECHNICIAN for pain 03/17/2024: tolerating diet, +BM 03/18/2024: [...] FOLLOW UP: With: Address: When: trauma clinic [address] [place] [address] 3, second floor, [address] [place] [address] 03/25/2024 9:30 AM Comments: Call to schedule/confirm followup appointment for wound check and GHULAM drain removal Other indicated follow up and instructions for scheduling: F/U with Dr. Jessica Crawford for bariatric surgery at [facility], her o (more content not included)... [facility] Comment on above: Result Comment: Elec tronically [...] 03/16/2024: +flatus, +nausea but no vomiting. on REFRIGERATION SERVICE TECHNICIAN for pain 03/17/2024: tolerating cld, downtrending H/H [...] on weekends/holiday, please page the trauma/EGS attending training professional. This patient's plan of care was discussed [...] PRN venlafaxine 75 mg Cap-ER, Oral, Daily [facility] Comment on above: Result Comment: Elec tronically [...] without obstruction or gangrene) Will follow-up with [facility] for management of hernia 2. Melena (K92.1: [...] SARS-CoV-2 (COVID-19) mRNA BNT-162b2 vax 03/31/2021 Recorded [facility] Comment on above: Result Comment: Elec tronically Signed By: Karina MARTINEZ, Demarco Herrera\Date and Time Signed: 03/20/24 15:24 EDT 03-19-2024 Hospital Discharge instructions Patient Education 03/19/2024 15:03:31 Maureen Elmore Drainage [facility] ([facility]USTOM) [place], [place] Neno Reddy MD, FACS DISCHARGE INSTRUCTIONS [...] 15:03:21 Open Hernia Repair, Adult, Care After, Gmoe-vy-Mzvw Open Hernia Repair, Adult, Care After What [...] have problems, call your doctor. Medicines Take lqyt-pgh-znkrdxc and prescription medicines only as told by [...] cannot use soap and water, use hand medical information officer. ?Change your bandage. ?Leave stitches or skin [...] provider. Document Revised: 04/10/2021 Document Reviewed: 04/10/2021 [employer] Patient Education 2022 [employer]. 03/17/2024 07:59:08 Diet - Basic Carbohydrate Counting [...] hot dog bun (1 ounce) 3/4 cup fwurn-tm-lpu cereal 1/2 cup cooked cereal 1 cup [...] Up Care 03/14/2024 17:40:12 With:trauma clinic Address: [address] [place] [address], second floor, [address] [place] [address]- [phone] When:03/25/2024 09:30:00 Comments:Call to schedule/confirm followup appointment for wound check and GHULAM drain removal [facility] 03-18-2024 Note Progress Note-Physic fredy Basic [...] % Low (03/16/24 06:28:00) MCV: 84.4 fL (03/16/24 06:28:00) MCH: 27.9 pg (03/16/24:28:00) MCHC: 33.1 gm/dL (03/16/24 06:28:00) RDW: 16.3 % High (03/16/24 06:28:00) Platelet: 340 E9/L (03/16/24:28:00) MPV: 7.1 fL (03/16/24 06:28:00) Neutro Auto: 82.1 % High (03/16/24 06:28:00) Lymph Auto: 6.3 % Low (03/16/24 06:28:00) Kaufman Auto: 11.4 % (03/16/24 06:28:00) Eos Auto: 0 % (03/16/24 06:28:00) Basophil Auto: 0.2 % (03/16/24 06:28:00) Neutro Absolute: 13.5 E9/L High (03/16/24 06:28:00) Lymph Absolute: 1 E9/L (03/16/24 06:28:00) Kaufman Absolute: 1.9 E9/L High (03/16/24 06:28:00) Eos Absolute: 0 E9/L (03/16/24 06:28:00) Basophil Absolute: 0 E9/L (03/16/24 06:28:00) Glucose Lvl: 279 mg/dL High (03/16/24 06:28:00) BUN: 17 mg/dL (03/16/24 06:28:00) Creatinine: 0.8 mg/dL (03/16/24 06:28:00) eGFR: 109 mL/min/1.73 m2 (03/16/24 06:28:00) BUN/Creat Ratio: 21 High (03/16/24:28:00) Sodium Lvl: 137 mmol/L (03/16/24 06:28:00) Potassium Lvl: 4 mmol/L (03/16/24 06:28:00) Chloride: 105 mmol/L (03/16/24 06:28:00) CO2: 22 mmol/L (03/16/24:28:00) AGAP: 14 mEq/L (03/16/24 06:28:00) Calcium Lvl: 7.7 mg/dL Low (03/16/24:28:00) Magnesium: 1.8 mg/dL (03/16/24 06:28:00) Glucose Cap: 261 mg/dL High (03/16/24 07:34:00) POC Device SN: [id number] (03/16/24 07:34:00) POC User ID: [id number] (03/16/24 07:34:00) POC Username: POC Username (03/16/24 [...] Reactive leukocytosis post-operati (more content not included)... [facility] Comment on above: Result Comment: Elec tronically [...] 03/16/2024: +flatus, +nausea but no vomiting. on REFRIGERATION SERVICE TECHNICIAN for pain Subjective No acute events overnight. [...] Lymph Auto: 8.1 % Low (03/17/24 06:09:00) Kaufman Auto: 9.8 % (03/17/24 06:09:00) Eos Auto: 0.1 % (03/17/24 06:09:00) Basophil Auto: 0.2 % (03/17/24 06:09:00) Neutro Absolute: 12.9 E9/L High (03/17/24 06:09:00) Lymph Absolute: 1.3 E9/L (03/17/24 06:09:00) Kaufman Absolute: 1.6 E9/L High (03/17/24 06:09:00) Eos [...] mg/dL High (03/17/24 07:58:00) POC Device SN: [id number] (03/17/24 07:58:00) POC User ID: [id number] (03/17/24 07:58:00) POC Username: GREG FOWLER (03/17/24 [...] date 04/16/24 10 (more content not included)... [facility] Comment on above: Result Comment: Elec tronically Signed By: Leandra Wallace PA-C\.br\Date and Time Signed: 03/17/24 11:06 EDT\.br\Electronically Co-Signed By: Silvio Sharp DO\.jeniffer\Date and Time Co-Signed: 03/18/24 13:26 EDT 03-17-2024 [...] advance to regular diet today. - DC REFRIGERATION SERVICE TECHNICIAN pump. Tylenol 650 mg q 6 hrs, [...] on weekends/holiday, please page the trauma/EGS attending training professional. This patient's plan of care was discussed [...] nausea - IV tylenol, toradol and Dilaudid REFRIGERATION SERVICE TECHNICIAN for pain control - Daily CBC - [...] on weekends/holiday, please page the trauma/EGS attending training professional. This patient's plan of care was discussed with Trauma/Emergency General Surgery attending, Dr. Sharp Extracted from: Title:ANES Post-operative Note---General Author: Ambrosio Layne Jr, DO Date:03/15/24 Plan Transfer/Discharge: Transfer/Discharge Discharge when meets criteria ( From PACU to floor ). Extracted from: Title:ANES Pre-operative Note 2022 Author:Ambrosio Layne Jr, DO Date:03/15/24 Plan [place] [employer] Anesthesi[employer] (ASA) physical status classification: [...] Clinic Appointment Type:Trauma Initial Follow Up (FT) [facility]07-08-2024 NoteInterdisciplinary Note - PT PT Evaluation completed with an [facility] score of . Pt was able to perform bed mobility with CGA/Min. Pt was able to stand with CGA and able to ambulate 4 small steps. Will trial an AD for more stability. Pt unsafe to return home this date, but will follow daily. Anticipating no PT needs [facility] NoteInterdisciplinary Note - OT OT [facility] six clicks score 14/24 = SNF. However, anticipate quick progress after post op pain has improved and pt may be more appropriate for HH services at time of Dc. Pt requires increased assist w/all Adls and transfers when compared to prior level of function. Inpatient OT services to follow daily to progress w/ function as pain becomes more tolerable.[facility]07-08-2024 NoteProgress Note-Physician Patient: CHRISTIAN SHELBY Age: 48 [...] Type II diabetes mellitus / SNOMED CT 843924596 / Confirmed Smoker / SNOMED CT 722039228 / Confirmed Morbid obesity / SNOMED CT 453231652 / Confirmed Recurrent scrotal infection / SNOMED CT 0438605599 / Confirmed Abdominal hernia / SNOMED CT 97836889 / Confirmed Left groin mass / SNOMED CT 5049773576 / Confirmed Anxiety / SNOMED CT 96736189 / Confirmed Scrotal abscess / SNOMED CT 45612935 / Confirmed Canceled: Orchitis / SNOMED CT 394322628 Canceled: Scrotal infection / SNOMED CT 9851560377 Canceled: Epididymitis / SNOMED CT 84708229 Histories Procedure history: Drainage of scrotal abscess ([id number]) on 03/21/2016 at 40 Years. Tonsillectomy (625624804). Social History Social & Psychosocial Habits Alcohol [...] adequate air exchange. Cardiovascular: Regular rhythm. Plan [place] [employer] An[employer] (ASA) physical status classification: Class IV, E. Anesthetic Preoperative Plan: Anesthesia General.[facility] Comment on above:Result Comment: Electronically Signed By: Ambrosio Layne Jr, DO\.br\Date and Time Signed: 03/16/24 11:14 [id number] NoteProgress Note-Physician Patient: CHRISTIAN SHELBY Age: 48 [...] meets criteria ( From PACU to floor ).[facility]Result Comment: Electronically Signed By: Ambrosio Layne Jr, DO.jeniffer\Date and Time Signed: 03/16/24 11:14 [id number] NoteProgress Note-Nurse Patient reports vomiting. Nurse responded to room to find patient gagging. Upon inspection of oral cavity, NG tube was found coiled in the back of throat. NG tube removed. Dr. West notified and advised to leave NG tube out at this time. Will continue to monitor.[facility]07-07-2024 NoteProgress Note-Physician GENERAL INFORMATION EMERGENCY GENERAL SURGERY - STAFF PROGRESS NOTE Patient Name: CHRISTIAN SHELBY Admission Date: 03/14/2024 17:37:38 Patient seen and examined on 03/15/2024 08:00 INTERVAL HISTORY/EVENTS Background: CHRISTIAN SHELBY is a 48 Years-old Male with a PMHx of obesity and diabetes. Patient was last seen at [facility] on 03/04 when he was admitted for observation given pain and possible obstruction of hisknown chronic ventral hernia (over 20 years). At that time, the hernia was partially reduced and hewas able to tolerate a diet without issue and discharged home. 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 on the ground, and when he got [...] mmHg (MAR 15:52) Weight 181.8 kg (MAR 14:52) BMI 52.88 (TORIN 06 23:52) GENERAL: alert, pleasant, conversational. Resting in [...] E9/L High (03/15/24 06:28:00) RBC: 5 E12/L (03/15/24:28:00) HGB: 14 gm/dL (03/15/24:28:00) Hct: 41.8 % (03/15/24:28:) MCV: 83.2 fL (03/15/24:28:00) MCH: 27.9 pg (03/15/24::00) MCHC: 33.5 gm/dL (03/15/24 06:28:00) RDW: 16.1 % High (03/15/24::) Platelet: 312 E9/L (03/15/24:28:00) MPV: 7 fL (03/15/24 06:28:00) Neutro Auto: 81.2 % High (03/15/24:28:00) Lymph Auto: 12.2 % Low (03/15/24:28:00) Kaufman Auto: 6.2 % (03/15/24:28:00) Eos Auto: 0.2 % (03/15/24:28:00) Basophil Auto: 0.2 % (03/15/24:28:00) Neutro Absolute: 10.3 E9/L High (03/15/24 06:28:00) Lymph Absolute: 1.5 E9/L (03/15/24 06:28:00) Kaufman Absolute: 0.8 E9/L (03/15/24 06:28:00) Eos Absolute: 0 E9/L (03/15/24::00) Basophil Absolute: 0 E9/L (03/15/24::00) PT: 10.2 second(s) (03/14/24 18:25:00) INR: 0.91 (03/14/24:25:00) PTT: 35.3 second(s) (03/14/24 18:25:00) Glucose Lvl: 215 mg/dL High (03/15/24::) BUN: 12 mg/dL (03/15/24::00) Creatinine: 0.6 mg/dL (03/15/24::) eGFR: 119 mL/min/1.73 m2 (03/15/24) BUN/Creat Ratio: 20 (03/15/24::) Sodium Lvl: 135 mmol/L (03/15/24::) Potassium Lvl: 4 mmol/L (03/15/24::) Chloride: 103 mmol/L (03/15/24::00) CO2: 22 mmol/L (03/15/24::00) AGAP: 14 mEq/L (03/15/24::00) Calcium Lvl: 8.3 mg/dL Low (03/15/24::) Alk Phos: 71 Int._Unit/L (03/14/24 18:25:00) ALT: 31 Int._Unit/L (03/14/24:25:00) AST: 19 Int._Unit/L [...] mg/dL (03/15/24 06:28:00) Glucose (more content not included)...[facility]:Result Comment: Electronically Signed By: Jason West MD\.br\Date and Time Signed: 03/15/24 09:33 [id number] NoteProgress Note-Nurse 0230 - This RN communicated [...] and was acknowledged. This RN provides on-going care.[facility]07-06-2024 NoteHistory and Physical EMERGENCY GENERAL SURGERY CONSULT / H&P Patient Name: CHRISTIAN SHELBY Admission Date: 03/14/2024 17:37:38 Chief Complaint: Abdominal pain Referring Physician: Dr. Caceres Patient seen and examined on 03/14/2024 21:00 HISTORY OF PRESENT ILLNESS CHRISTIAN SHELBY is a 48 Years-old Male with a PMHx of obesity and diabetes. Patient was last seen at [facility] on 03/04 when he was admitted for observation given pain and possible obstruction of hisknown chronic ventral hernia (over 20 years). At that time, the hernia was partially reduced and hewas able to tolerate a diet without issue and discharged home. 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 on the ground, and when he got [...] (03/14/24) MCHC: 34.6 (03/14/24) MCV: 84.0 (03/14/24) Kaufman Absolute: 0.7 (03/14/24) Kaufman Auto: 4.8 (03/14/24) MPV: 7.1 (03/14/24) Neutro Absolute: 11.9 (03/14/24) Neutro Auto: 85.8 (03/14/24) Platelet: 314.0 (03/14/24) Potassium Lvl: 4.2 (03/14/24) PT: 10.2 (03/14/24) PTT: 35.3 (03/14/24) RBC: 5.1 (03/14/24) RDW: 15.9 (03/14/24) Sodium Lvl: 135 (03/14/24) Total (more content not included)...[facility]: Result Comment: Electronically Signed By: Brett MARTINEZ, Jason García\.br\Date and Time Signed: 03/14/24 21:53 [id number] NoteProgress Note-Nurse Dr. Caceres aware of [facility]PT[facility]07-06-2024 Note Progress Note-Nurse Patient to CT scan[facility]07-06-2024 NoteProgress Note-Nurse Dr. Ferreira aware patient had a dose of Zofran when arrived and verbalized to give the other dose.[facility]06-27-2024 NoteDischarge Summary DISCHARGE SUMMARY [address] [address] CHRISTIAN SHELBY Date of : 1975 48 [...] FOLLOW UP: With: Address: When: trauma clinic [address] [place] [address] 3, second floor, [address] [place] [address] , only if needed Comments: Please call [...] reasonsto return to clinic or to emergency room.[facility] on above: Result Comment: Electronically Signed By: Leandra Wallace PA-C\.br\Date and Time Signed: 03/05/24 09:25 EDT\.br\Electronically Co-Signed By: Esvin Hill MD\.br\Date and Time Co-Signed: 03/05/2413:40 [id number] Hospital Discharge instructions Patient Education 03/05/2024 09:09:24 [...] to keep your urine pale yellow. Take ycuj-abz-zotipbh or prescription medicines. Eat foods that are [...] about any changes or new symptoms. Take owtg-tmu-smeajsg and prescription medicines only as told by [...] provider. Document Revised: 04/03/2021 Document Reviewed: 04/03/2021 [employer] Patient Education 2022 [employer]. Follow Up Care 03/04/2024 13:49:43 With:JOAN CARRILLO Address: [address] [place] [address] [phone] Business (1) When:7 to 10 days Comments:Call for followup appointmentCall physician if symptoms worsen With:trauma clinic Address: [address] [place] [address] 3, second floor, [address] [place] [address]- [phone] When: only if needed Comments:Please call to make follow up appointment if you have questions or concerns. [facility]06-27-2024 NoteHistory and Physical EMERGENCY GENERAL SURGERY [...] (03/04/24) MCHC: 32.9 (03/04/24) MCV: 84.5 (03/04/24) Kaufman Absolute: 0.6 (03/04/24) Kaufman Auto: 3.9 (03/04/24) MPV: 7.2 (03/04/24) Neutro Absolute: 13.9 (03/04/24) Neutro Auto: 88.3 (03/04/24) Platelet: 313.0 (03/04/24) Potassium Lvl: 4.3 (03/04/24) RBC: 5.7 (03/04/24) RDW: 15.9 (03/04/24) Sodium Lvl: 133 (03/04/24) Total Protein: 8.2 (03/04/24) WBC: 15.8 (03/04/24) RADIOLOGY -- CT Abdomen/Pelvis w/ Contrast 03/04/24 16:49:06 IMPRESSION: Findings concerning for developing small bowel obstruction secondary to the ventral (more content not included)...TrihealthComment on above:Result Comment: Electronically Signed By: Leandra Wallace PA-C\.br\Date and Time Signed: 03/04/24 17:17 EDT\.br\Electronically Co-Signed By: Liz MARTINEZ, Esvin Sanchez.jeniffer\Date and Time Co-Signed: 03/05/2409:18 [id number] Evaluation + Plan noteExtracted from: Title:ED Note [...] Place in Status UA with Cult Rflx [facility]12-13-2023 NoteMicrobiology PROCEDURE: Blood Culture Charcoal [R1] SOURCE: Blood BODY SITE: Hand R COLLECTED DATE/TIME: 08/13/2023 20:17 EST RECEIVED DATE/TIME: 08/13/2023 21:08 EST START DATE/TIME: 08/13/2023 21:08 EST FREE TEXT SOURCE: Baljit Moyer PA-C, PA-C, Jansen FINAL REPORTS Final Report [] Verified Date/Time: 08/21/2023 07:00 EST No growth at 7 days. Performing Locations R1: This test was performed at: [facility], [address] [place] [address], [id number] [place] [address], [address] [place], [place] [address]Comment on above:Performed By: #### [id number] ####[address] [id number] NoteMicrobiology PROCEDURE: Blood Culture Charcoal [R1] SOURCE: Blood BODY SITE: Hand L COLLECTED DATE/TIME: 08/13/2023 20:10 EST RECEIVED DATE/TIME: 08/13/2023 21:08 EST START DATE/TIME: 08/13/2023 21:08 EST FREE TEXT SOURCE: Baljit Moyer PA-C, PA-C, Jansen FINAL REPORTS Final Report [] Verified Date/Time: 08/21/2023 07:00 EST No growth at 7 days. Performing Locations R1: This test was performed at: [facility], [address] [place] [address], [address] [place] [address], [address] [place], [place] [address]Comment on above:Performed By: #### [id number] ####[address] [id number] NoteDISCHARGE SUMMARY [address] [address] CHRISTIAN SHELBY Date of : 1975 47 Years Male Attending Amparo MARTINEZ, Alesha Wray Date of Admission 08/14/2023 Date of Discharge [...] FOLLOW UP: With: Address: When: trauma clinic [address] [place] [address] 3, second floor, [address] [place] [phone] , only if needed Comments: Please call to make follow up appointment if you have questions or concerns. Our office has placed a referral to the bariatric clinic at [facility], if you do not hear from [facility] please contact this office and we can [...] and referral placed for bariatric evaluation at [facility] to help improve his metabolic syndromeTrihealthComment on above:Result Comment: Electronically Signed By: Madison BEAN, Leandra Del Rosario\.br\Date and Time Signed: 08/14/23 14:13 EST\.br\Electronically Co-Signed By: Amparo MARTINEZ, Alesha Wray\.br\Date and Time Co-Signed: 08/14/23 17:04 [id number] NoteACUTE CARE SURGERY CONSULT NOTE CHIEF COMPLAINT: [...] Lymph Auto: 10.7 % Low (08/13/23 19:00:00) Kaufman Auto: 7.5 % (08/13/23 19:00:00) Eos Auto: 0.1 % (08/13/23 19:00:00) Basophil Auto: 0.1 % (08/13/23 19:00:00) Neutro Absolute: 12.8 E9/L High (08/13/23 19:00:00) Lymph Absolute: 1.7 E9/L (08/13/23 19:00:00) Kaufman Absolute: 1.2 E9/L High (08/13/23 19:00:00) Eos Absolute: 0 E9/L (08/13/23 19:00:00) Basophil Absolute: 0 E9/L (08/13/23:00:00) PT: 11.4 [...] 9.1 mg/dL (08/13/23:00:00) Alk Phos: 73 Int._Unit/L (08/13/23 19:00:00) ALT: 36 Int._Unit/L (08/13/23 19:00:00) AST: 28 Int._Unit/L (08/13/23:00:00) Total Protein: 8.7 gm/dL High (08/13/23 19:00:00) [...] High (08/13/23:26:00) pCO2 Myron: 31.3 mmHg Low (08/13/23 20:26:00) Sample Type: Venous Draw (08/13/23::00) Sample Site: OTHER (08/13/23::00) FIO2 B (08/13/23::00) Allens Test: Not Applicable (08/13/23::00) Drawn by: lab (08/13/23 20:26:00) RADIOLOGY: I personally reviewed the images - my summary: CT abdomen/pelvis: large lower abdominal ventral hernia. Some simple fluid within the hernia, but no free air, no thick (more content not included)...[facility] Comment on above:Result Comment: Electronically Signed By: Amparo MARTINEZ, Alesha Wray\.br\Date and Time Signed: 08/13/23 22:31 [id number] Hospital Discharge instructions Patient Education 11/05/2022 10:52:43 [...] 12/02/2001 Document Revised: 12/17/2019 Document Reviewed: 07/22/2017 [employer] Patient Education 2020 [employer] Follow Up Care 10/19/2022 10:02:10 With:KEVAN MARTINEZSalvatore, URL Address: [facility] [address] [place] [address]- When: Unknown [facility] evaluation + Plan note No data available for this section [facility] evaldonrvf note* Diagnosis Lung nodule- Primary Other diseases of lung, not elsewhere classified documented in this encounter [facility] HealthcareEvaluation [facility]* Diagnosis Type 2 diabetes mellitus without complication, without long-term current use of insulin (CMS/HCC)- Primary documented in this encounter [facility] HealthcareEvaluation note* Diagnosis Type 2 diabetes mellitus [...] of unspecified site documented in this encounter [facility] HealthcareEvaluation note* Diagnosis Type 2 diabetes mellitus [...] suppurativa- Primary Hidradenitis documented in this encounter [facility] HealthcareEvaluation note* Diagnosis Type 2 diabetes mellitus [...] complication, without long-term current use of insulin (CMS/[facility]) S/P hernia repair Other postprocedural status Hypertriglyceridemia (CMS/HCC) Pure hyperglyceridemia Overactive bladder Hypertonicity of bladder Encounter for subsequent annual wellness visit (AWV) in Medicare patient Type 2 diabetes mellitus with other skin complication, without long-term current use of insulin ([facility])- Primary Hypertriglyceridemia (CMS/HCC) Pure hyperglyceridemia Anxiety and depression (CMS/HCC) Primary hypertension (CMS/HCC) Unspecified essential hypertension Overactive bladder Hypertonicity of bladder Gastroesophageal reflux disease without esophagitis Esophageal reflux Morbid obesity ([facility]) Morbid obesity BMI 50.0-59.9, adult ([facility]) Hidradenitis suppurativa Hidradenitis Neuropathy Mononeuritis of unspecified site Type 2 diabetes mellitus with other skin complication, without long-term current use of insulin ([facility]) documented in this encounter [facility] HealthcareEvaluation note* Diagnosis Type 2 diabetes mellitus with other skin complication, without long-term current use of insulin ([facility])- Primary Hypertriglyceridemia ([facility]/HCC) Pure hyperglyceridemia Anxiety and depression ([facility]/HCC) Morbid (severe) obesity due to excess calories (E66.01) Body mass index [BMI] 50.0-59.9, adult (Z68.43) Primary hypertension ([facility]/HCC) Unspecified essential hypertension Hidradenitis suppurativa Hidradenitis Former tobacco use BMI 50.0-59.9, adult ([facility]) Ventral hernia without obstruction or gangrene Unspecified [...] complication, without long-term current use of insulin ([facility])- Primary Hypertriglyceridemia (CMS/HCC) Pure hyperglyceridemia Anxiety and depression (CMS/HCC) Primary hypertension (CMS/HCC) Unspecified essential hypertension Overactive bladder Hypertonicity of bladder Gastroesophageal reflux disease without esophagitis Esophageal reflux Morbid obesity (CMS/HCC) Morbid obesity BMI 50.0-59.9, adult (CMS/HCC) Hidradenitis suppurativa Hidradenitis Neuropathy Mononeuritis of unspecified site Lung nodule- Primary Other diseases of lung, not elsewhere classified Primary hypertension (CMS/HCC) Unspecified essential hypertension Type 2 diabetes mellitus without complication, without long-term current use of insulin (CMS/HCC) documented in this encounter [facility] HealthcareEvaluation note* Diagnosis Type 2 diabetes mellitus [...] suppurativa Hidradenitis Neuropathy Mononeuritis of unspecified site Lung nodule- Primary Other diseases of lung, not elsewhere classified Neuropathy Mononeuritis of unspecified site Primary hypertension (CMS/HCC) Unspecified essential hypertension documented in this encounter [facility] HealthcareEvaluation note* Diagnosis Type 2 diabetes mellitus [...] complication, without long-term current use of insulin (CMS/[facility]) S/P hernia repair Other postprocedural status Hypertriglyceridemia (CMS/[facility]) Pure hyperglyceridemia Overactive bladder Hypertonicity of bladder Encounter for subsequent annual wellness visit (AWV) in Medicare patient Type 2 diabetes mellitus with other skin complication, without long-term current use of insulin ([facility])- Primary Hypertriglyceridemia (CMS/HCC) Pure hyperglyceridemia Anxiety and depression (CMS/HCC) Primary hypertension (CMS/HCC) Unspecified essential hypertension Overactive bladder Hypertonicity of bladder Gastroesophageal reflux disease without esophagitis Esophageal reflux Morbid obesity (CMS/HCC) Morbid obesity BMI 50.0-59.9, adult ([facility]) Hidradenitis suppurativa Hidradenitis Neuropathy Mononeuritis of unspecified site Lung nodule- Primary Other diseases of lung, not elsewhere classified Primary hypertension (CMS/HCC) Unspecified essential hypertension documented in this encounter [facility] HealthcareEvaluation note* Diagnosis Type 2 diabetes mellitus with other skin complication, without long-term current use of insulin ([facility])- Primary Hypertriglyceridemia (CMS/HCC) Pure hyperglyceridemia Anxiety and depression (CMS/HCC) Morbid (severe) obesity due to excess calories (E66.01) Body mass index [BMI] 50.0-59.9, adult (Z68.43) Primary hypertension (CMS/HCC) Unspecified essential hypertension Hidradenitis suppurativa Hidradenitis Former tobacco use BMI 50.0-59.9, adult (CMS/[facility]) Ventral hernia without obstruction or gangrene Unspecified ventral hernia without mention of obstruction or gangrene Primary hypertension ([facility]/HCC)- Primary Unspecified essential hypertension Anxiety and depression ([facility]/HCC) Type 2 diabetes mellitus with other skin complication, without long-term current use of insulin ([facility]) S/P hernia repair Other postprocedural status Hypertriglyceridemia ([facility]) Pure hyperglyceridemia Overactive bladder Hypertonicity of bladder Encounter for subsequent annual wellness visit (AWV) in Medicare patient Type 2 diabetes mellitus with other skin complication, without long-term current use of insulin ([facility])- Primary Hypertriglyceridemia ([facility] Pure hyperglyceridemia Anxiety and depression ([facility]) Primary hypertension ([facility]) Unspecified essential hypertension Overactive bladder Hypertonicity of bladder Gastroesophageal reflux disease without esophagitis Esophageal reflux Morbid obesity ([facility]) Morbid obesity BMI 50.0-59.9, adult ([facility]) Hidradenitis suppurativa Hidradenitis Neuropathy Mononeuritis of unspecified site Lung nodule- Primary Other diseases of lung, not elsewhere classified Primary hypertension ([facility]) Unspecified essential hypertension documented in this encounter [facility] HealthcareEvaluation note* Diagnosis Type 2 diabetes mellitus with other skin complication, without long-term current use of insulin ([facility])- Primary Hypertriglyceridemia ([facility]) Pure hyperglyceridemia Anxiety and depression ([facility]) Morbid (severe) obesity due to excess calories (E66.01) Body mass index [BMI] 50.0-59.9, adult (Z68.43) Primary hypertension ([facility]) Unspecified essential hypertension Hidradenitis suppurativa Hidradenitis Former tobacco use BMI 50.0-59.9, adult ([facility]) Ventral hernia without obstruction or gangrene Unspecified ventral hernia without mention of obstruction or gangrene Primary hypertension ([facility])- Primary Unspecified essential hypertension Anxiety and depression ([facility]) Type 2 diabetes mellitus with other skin complication, without long-term current use of insulin ([facility] S/P hernia repair Other postprocedural status Hypertriglyceridemia ([facility]) Pure hyperglyceridemia Overactive bladder Hypertonicity of bladder [...] suppurativa Hidradenitis Neuropathy Mononeuritis of unspecified site Lung nodule- Primary Other diseases of lung, not elsewhere classified documented in this encounter [facility] HealthcareEvaluation note* Diagnosis Type 2 diabetes mellitus [...] suppurativa Hidradenitis Neuropathy Mononeuritis of unspecified site Lung nodule- Primary Other diseases of lung, not elsewhere classified Hidradenitis suppurativa- Primary Hidradenitis documented in this encounter [facility] HealthcareEvaluation note* Diagnosis Type 2 diabetes mellitus with other skin complication, without long-term current use of insulin ([facility]/HCC)- Primary Hypertriglyceridemia (CMS/HCC) Pure hyperglyceridemia Anxiety and [...] complication, without long-term current use of insulin (CMS/[facility]) S/P hernia repair Other postprocedural status Hypertriglyceridemia (CMS/[facility]) Pure hyperglyceridemia Overactive bladder Hypertonicity of bladder Encounter for subsequent annual wellness visit (AWV) in Medicare patient Type 2 diabetes mellitus with other skin complication, without long-term current use of insulin ([facility])- Primary Hypertriglyceridemia (CMS/HCC) Pure hyperglyceridemia Anxiety and depression ([facility]/HCC) Primary hypertension ([facility]/HCC) Unspecified essential hypertension Overactive bladder Hypertonicity of bladder Gastroesophageal reflux disease without esophagitis Esophageal reflux Morbid obesity ([facility]/HCC) Morbid obesity BMI 50.0-59.9, adult ([facility]) Hidradenitis suppurativa Hidradenitis Neuropathy Mononeuritis of unspecified site Lung nodule- Primary Other diseases of lung, not elsewhere classified Hidradenitis suppurativa- Primary Hidradenitis Primary hypertension (CMS/HCC) Unspecified essential hypertension Hypertriglyceridemia (CMS/HCC) Pure hyperglyceridemia Anxiety and depression ([facility]/HCC) Type 2 diabetes mellitus with other skin complication, without long-term current use of insulin ([facility]/HCC) Neuropathy Mononeuritis of unspecified site Overactive bladder Hypertonicity of bladder Gastroesophageal reflux disease without esophagitis Esophageal reflux documented in this encounter [facility] HealthcareEvaluation note* Diagnosis Type 2 diabetes mellitus with other skin complication, without long-term current use of insulin ([facility])- Primary Hypertriglyceridemia (CMS/HCC) Pure hyperglyceridemia Anxiety and [...] suppurativa Hidradenitis Neuropathy Mononeuritis of unspecified site Lung nodule- Primary Other diseases of lung, not elsewhere classified Hidradenitis suppurativa- Primary Hidradenitis Type 2 diabetes mellitus without complication, without long-term current use of insulin (CMS/HCC)- Primary documented in this encounter [facility] HealthcareEvaluation note* Diagnosis Type 2 diabetes mellitus [...] Primary Unspecified essential hypertension Anxiety and depression ([facility]/HCC) Type 2 diabetes mellitus with other skin complication, without long-term current use of insulin ([facility]) S/P hernia repair Other postprocedural status Hypertriglyceridemia (CMS/HCC) Pure hyperglyceridemia Overactive bladder Hypertonicity of bladder Encounter for subsequent annual wellness visit (AWV) in Medicare patient Type 2 diabetes mellitus with other skin complication, without long-term current use of insulin ([facility])- Primary Hypertriglyceridemia (CMS/HCC) Pure hyperglyceridemia Anxiety and depression (CMS/HCC) Primary hypertension ([facility]) Unspecified essential hypertension Overactive bladder Hypertonicity of bladder Gastroesophageal reflux disease without esophagitis Esophageal reflux Morbid obesity ([facility]) Morbid obesity BMI 50.0-59.9, adult ([facility]) Hidradenitis suppurativa Hidradenitis Neuropathy Mononeuritis of unspecified site Lung nodule- Primary Other diseases of lung, not elsewhere classified Hidradenitis suppurativa- Primary Hidradenitis Hidradenitis suppurativa- Primary Hidradenitis documented in this encounter [facility] HealthcareEvaluation note* Diagnosis Type 2 diabetes mellitus with other skin complication, without long-term current use of insulin ([facility])- Primary Hypertriglyceridemia ([facility]/HCC) Pure hyperglyceridemia Anxiety and depression ([facility]) Morbid (severe) obesity due to excess calories (E66.01) Body mass index [BMI] 50.0-59.9, adult (Z68.43) Primary hypertension ([facility]) Unspecified essential hypertension Hidradenitis suppurativa Hidradenitis Former tobacco use BMI 50.0-59.9, adult ([facility]) Ventral hernia without obstruction or gangrene Unspecified ventral hernia without mention of obstruction or gangrene Primary hypertension ([facility]/HCC)- Primary Unspecified essential hypertension Anxiety and depression ([facility]/HCC) Type 2 diabetes mellitus with other skin complication, without long-term current use of insulin ([facility]) S/P hernia repair Other postprocedural status Hypertriglyceridemia (CMS/HCC) Pure hyperglyceridemia Overactive bladder Hypertonicity of bladder Encounter for subsequent annual wellness visit (AWV) in Medicare patient Type 2 diabetes mellitus with other skin complication, without long-term current use of insulin ([facility])- Primary Hypertriglyceridemia (CMS/HCC) Pure hyperglyceridemia Anxiety and depression (CMS/HCC) Primary hypertension (CMS/HCC) Unspecified essential hypertension Overactive bladder Hypertonicity of bladder Gastroesophageal reflux disease without esophagitis Esophageal reflux Morbid obesity ([facility]/HCC) Morbid obesity BMI 50.0-59.9, adult ([facility]) Hidradenitis suppurativa Hidradenitis Neuropathy Mononeuritis of unspecified site Lung nodule- Primary Other diseases of lung, not elsewhere classified Hidradenitis suppurativa- Primary Hidradenitis Primary hypertension ([facility]/HCC)- Primary Unspecified essential hypertension Type 2 diabetes mellitus without complication, without long-term current use of insulin ([facility]) Hidradenitis suppurativa Hidradenitis Morbid obesity ([facility]) Morbid obesity BMI 50.0-59.9, adult ([facility]) documented in this encounter [facility] HealthcareEvaluation note* Diagnosis Type 2 diabetes mellitus with other skin complication, without long-term current use of insulin ([facility])- Primary Hypertriglyceridemia ([facility]/HCC) Pure hyperglyceridemia Anxiety and depression ([facility]) Morbid (severe) obesity due to excess calories (E66.01) Body mass index [BMI] 50.0-59.9, adult (Z68.43) Primary hypertension ([facility]) Unspecified essential hypertension Hidradenitis suppurativa Hidradenitis Former tobacco use BMI 50.0-59.9, adult ([facility]) Ventral hernia without obstruction or gangrene Unspecified ventral hernia without mention of obstruction or gangrene Primary hypertension ([facility]/HCC)- Primary Unspecified essential hypertension Anxiety and depression ([facility]/HCC) Type 2 diabetes mellitus with other skin complication, without long-term current use of insulin ([facility]) S/P hernia repair Other postprocedural status Hypertriglyceridemia (CMS/[facility]) Pure hyperglyceridemia Overactive bladder Hypertonicity of bladder Encounter for subsequent annual wellness visit (AWV) in Medicare patient Type 2 diabetes mellitus with other skin complication, without long-term current use of insulin ([facility])- Primary Hypertriglyceridemia (CMS/HCC) Pure hyperglyceridemia Anxiety and depression ([facility] [facility]CC) Primary hypertension ([facility]/HCC) Unspecified essential hypertension Overactive bladder Hypertonicity of bladder Gastroesophageal reflux disease without esophagitis Esophageal reflux Morbid obesity ([facility]/HCC) Morbid obesity BMI 50.0-59.9, adult ([facility]) Hidradenitis suppurativa Hidradenitis Neuropathy Mononeuritis of unspecified site Lung nodule- Primary Other diseases of lung, not elsewhere classified Hidradenitis suppurativa- Primary Hidradenitis Primary hypertension ([facility])- Primary Unspecified essential hypertension Type 2 diabetes mellitus without complication, without long-term current use of insulin ([facility]) Hidradenitis suppurativa Hidradenitis Morbid obesity ([facility]) Morbid obesity BMI 50.0-59.9, adult ([facility]) Gastroesophageal reflux disease without esophagitis Esophageal reflux Neuropathy Mononeuritis of unspecified site documented in this encounter [facility] HealthcareEvaluation note* Diagnosis Type 2 diabetes mellitus with other skin complication, without long-term current use of insulin ([facility])- Primary documented in this encounter [facility] HealthcareEvaluation note* Diagnosis Type 2 diabetes mellitus with other skin complication, without long-term current use of insulin ([facility])- Primary Hypertriglyceridemia ([facility]) Pure hyperglyceridemia Anxiety and depression ([facility]) Morbid (severe) obesity due to excess calories (E66.01) Body mass index [BMI] 50.0-59.9, adult (Z68.43) Primary hypertension ([facility] Unspecified essential hypertension Hidradenitis suppurativa Hidradenitis Former tobacco use BMI 50.0-59.9, adult ([facility]) Ventral hernia without obstruction or gangrene Unspecified ventral hernia without mention of obstruction or gangrene Primary hypertension ([facility])- Primary Unspecified essential hypertension Anxiety and depression ([facility]) Type 2 diabetes mellitus with other skin complication, without long-term current use of insulin ([facility]) S/P hernia repair Other postprocedural status Hypertriglyceridemia ([facility]) Pure hyperglyceridemia Overactive bladder Hypertonicity of bladder Encounter for subsequent annual wellness visit (AWV) in Medicare patient Type 2 diabetes mellitus with other skin complication, without long-term current use of insulin ([facility])- Primary Hypertriglyceridemia ([facility]/HCC) Pure hyperglyceridemia Anxiety and depression ([facility]) Primary hypertension ([facility] Unspecified essential hypertension Overactive bladder Hypertonicity of bladder Gastroesophageal reflux disease without esophagitis Esophageal reflux Morbid obesity ([facility]) Morbid obesity BMI 50.0-59.9, adult ([facility]) Hidradenitis suppurativa Hidradenitis Neuropathy Mononeuritis of unspecified site Lung nodule- Primary Other diseases of lung, not elsewhere classified Hidradenitis suppurativa- Primary Hidradenitis Primary hypertension ([facility]/HCC)- Primary Unspecified essential hypertension Type 2 diabetes mellitus without complication, without long-term current use of insulin ([facility]) Hidradenitis suppurativa Hidradenitis Morbid obesity ([facility]) Morbid obesity BMI 50.0-59.9, adult ([facility]) Hidradenitis suppurativa- Primary Hidradenitis High risk medication use documented in this encounter [facility] HealthcareEvaluation note* Diagnosis Type 2 diabetes mellitus with other skin complication, without long-term current use of insulin ([facility])- Primary Hypertriglyceridemia ([facility]) Pure hyperglyceridemia Anxiety and depression ([facility]) Morbid (severe) obesity due to excess calories (E66.01) Body mass index [BMI] 50.0-59.9, adult (Z68.43) Primary hypertension ([facility]) Unspecified essential hypertension Hidradenitis suppurativa Hidradenitis Former tobacco use BMI 50.0-59.9, adult ([facility]) Ventral hernia without obstruction or gangrene Unspecified ventral hernia without mention of obstruction or gangrene Primary hypertension ([facility])- Primary Unspecified essential hypertension Anxiety and depression ([facility]) Type 2 diabetes mellitus with other skin complication, without long-term current use of insulin ([facility]) S/P hernia repair Other postprocedural status Hypertriglyceridemia ([facility]) Pure hyperglyceridemia Overactive bladder Hypertonicity of bladder Encounter for subsequent annual wellness visit (AWV) in Medicare patient Type 2 diabetes mellitus with other skin complication, without long-term current use of insulin ([facility])- Primary Hypertriglyceridemia ([facility]) Pure hyperglyceridemia Anxiety and depression ([facility]) Primary hypertension ([facility] Unspecified essential hypertension Overactive bladder Hypertonicity of bladder Gastroesophageal reflux disease without esophagitis Esophageal reflux Morbid obesity ([facility]) Morbid obesity BMI 50.0-59.9, adult ([facility]) Hidradenitis suppurativa Hidradenitis Neuropathy Mononeuritis of unspecified site Lung nodule- Primary Other diseases of lung, not elsewhere classified Hidradenitis suppurativa- Primary Hidradenitis Primary hypertension (CMS/HCC)- Primary Unspecified essential hypertension Type 2 diabetes mellitus without complication, without long-term current use of insulin (CMS/HCC) Hidradenitis suppurativa Hidradenitis Morbid obesity (CMS/HCC) Morbid obesity BMI 50.0-59.9, adult (CMS/HCC) Type 2 diabetes mellitus without complication, without long-term current use of insulin (CMS/HCC)- Primary documented in this encounter [facility] note No data available for this section [facility] Summary Purpose Family History No Family History [...] Referral Specialty Diagnoses / Procedures Referred By Adi t Referred To Contact Diagnoses Lung nodule Procedures CT chest w IV contrast Joan Carrillo NP [address] [place] [address] [facility] [address] [facility] [address] Referral ID Status Reason Start Date Expiration Date V isits Requested Visits Authorized [id number] Pending Review 06/15/2024 12/12/2024 1 1 Additional Source Comments Patient Care team informatio n (unrecognized section and content) Psychotherapist Counselor Relationship Specialty Start Date End Date Casey Silva MD [address] [place] [phone] PCP - General Family Medicine 09/20/23 Joan Carrillo NP [address] [place] [address] Nurse Practitioner Family Medicine 09/18/23 Psychotherapist Counselor Relationship Specialty Start Date End Date Casey Silva MD [address] [place] [phone] PCP - General Family Medicine 09/20/23 Joan Carrillo NP [address] [place] [address] Nurse Practitioner Family Medicine 09/18/23 Psychotherapist Counselor Relationship Specialty Start Date End Date Casey Silva MD [address] [place] [phone] PCP - General Family Medicine 09/20/23 Joan Carrillo NP [address] [place] [address] Nurse Practitioner Family Medicine 09/18/23 Psychotherapist Counselor Relationship Specialty Start Date End Date Casey Silva MD [address] [place] [phone] PCP - General Family Medicine 09/20/23 Joan Carrillo NP [address] [place] [phone] Nurse Practitioner Family Medicine 09/18/23 Psychotherapist Counselor Relationship Specialty Start Date End Date Casey Silva MD [address] [place] [phone] PCP - General Family Medicine 09/20/23 Joan Carrillo NP [address] [place] [phone] Nurse Practitioner Family Medicine 09/18/23 Psychotherapist Counselor Relationship Specialty Start Date End Date Casey Silva MD [address] [place] [phone] PCP - General Family Medicine 09/20/23 Joan Carrillo NP [address] [place] [address] Nurse Practitioner Family Medicine 09/18/23 Psychotherapist Counselor Relationship Specialty Start Date End Date Casey Silva MD [address] [place] [phone] PCP - General Family Medicine 09/20/23 Joan Carrillo NP [address] [place] [address] Nurse Practitioner Family Medicine 09/18/23 Psychotherapist Counselor Relationship Specialty Start Date End Date Casey Silva MD [address] [place] [phone] PCP - General Family Medicine 09/20/23 Joan Carrillo NP [address] [place] [address] Nurse Practitioner Family Medicine 09/18/23 Psychotherapist Counselor Relationship Specialty Start Date End Date Casey Silva MD [address] [place] [phone] PCP - General Family Medicine 09/20/23 Joan Carrillo NP [address] [place] [address] Nurse Practitioner Family Medicine 09/18/23 Psychotherapist Counselor Relationship Specialty Start Date End Date Casey Silva MD [address] [place] [phone] PCP - General Family Medicine 09/20/23 Joan Carrillo NP [address] [place] [address] Nurse Practitioner Family Medicine 09/18/23 Psychotherapist Counselor Relationship Specialty Start Date End Date Casey Silva MD [address] [place] [phone] PCP - General Family Medicine 09/20/23 Joan Carrillo NP [address] [place] [address] Nurse Practitioner Family Medicine 09/18/23 Psychotherapist Counselor Relationship Specialty Start Date End Date Casey Silva MD [address] [place] [phone] PCP - General Family Medicine 09/20/23 Joan Carrillo NP [address] [place] [address] Nurse Practitioner Family Medicine 09/18/23 Psychotherapist Counselor Relationship Specialty Start Date End Date Casey Silva MD [address] [place] [phone] PCP - General Family Medicine 09/20/23 Joan Carrillo NP [address] [place] [address] Nurse Practitioner Family Medicine 09/18/23 Psychotherapist Counselor Relationship Specialty Start Date End Date Casey Silva MD [address] [place] [phone] PCP - General Family Medicine 09/20/23 Joan Carrillo NP [address] [place] [address] Nurse Practitioner Family Medicine 09/18/23 Psychotherapist Counselor Relationship Specialty Start Date End Date Casey Silva MD [address] [place] [address] PCP - General Family Medicine 09/20/23 Joan Carrillo NP [address] [place] [address] Nurse Practitioner Family Medicine 09/18/23 Psychotherapist Counselor Relationship Specialty Start Date End Date Casey Silva MD [address] [place] [address] PCP - General Family Medicine 09/20/23 Joan Carrillo NP [address] [place] [address] Nurse Practitioner Family Medicine 09/18/23 Psychotherapist Counselor Relationship Specialty Start Date End Date Casey Silva MD [address] [place] [phone] PCP - General Family Medicine 09/20/23 Joan Carrillo NP [address] [place] [address] Nurse Practitioner Family Medicine 09/18/23 Psychotherapist Counselor Relationship Specialty Start Date End Date Casey Silva MD [address] [place] [phone] PCP - General Family Medicine 09/20/23 Joan Carrillo NP [address] [place] [address] Nurse Practitioner Family Medicine 09/18/23 Psychotherapist Counselor Relationship Specialty Start Date End Date Casey Silva MD [address] [place] [phone] PCP - General Family Medicine 09/20/23 Joan Carrillo NP [address] [place] [address] Nurse Practitioner Family Medicine 09/18/23 Psychotherapist Counselor Relationship Specialty Start Date End Date Casey Silva MD [address] [place] [phone] PCP - General Family Medicine 09/20/23 Joan Carrillo NP [address] [place] [address] Nurse Practitioner Family Medicine 09/18/23 Psychotherapist Counselor Relationship Specialty Start Date End Date Casey Silva MD [address] [place] [address] PCP - General Family Medicine 09/20/23 Joan Carrillo NP [address] [place] [address] Nurse Practitioner Family Medicine 09/18/23 (unrecognized sect [...] CREATED AUTHOR AUTHOR'S ORGANIZ ATION 03/06/2024 [facility] DATE CREATED AUTHOR AUTHOR'S ORGANIZ ATION 03/15/2024 [facility] DATE CREATED AUTHOR AUTHOR'S ORGANIZ ATION 03/16/2024 [facility] DATE CREATED AUTHOR AUTHOR'S ORGANIZ ATION 03/17/2024 [facility] DATE CREATED AUTHOR AUTHOR'S ORGANIZ ATION 03/23/2024 [facility] DATE CREATED AUTHOR AUTHOR'S ORGANIZ ATION 03/24/2024 [facility] DATE CREATED AUTHOR AUTHOR'S ORGANIZ ATION 03/25/2024 [facility] DATE CREATED AUTHOR AUTHOR'S ORGANIZ ATION 03/26/2024 [facility] DATE CREATED AUTHOR AUTHOR'S ORGANIZ ATION 03/29/2024 [facility] DATE CREATED AUTHOR AUTHOR'S ORGANIZ ATION 04/10/2024 [facility] DATE CREATED AUTHOR AUTHOR'S ORGANIZ ATION 04/19/2024 [facility] DATE CREATED AUTHOR AUTHOR'S ORGANIZ ATION 07/02/2024 [facility] DATE CREATED AUTHOR AUTHOR'S ORGANIZ ATION 09/30/2024 [facility] Reason for Visit (unrecogniz ed section and content) Reason Onset Date Comments Med Refill 06/05/2024 Reason Onset Date Comments Med Refill 07/13/2024 Reason Onset Date Comments Med Refill 07/27/2024 Reason Onset Date Comments Med Refill 08/10/2024 Reason Comments Med Refill Reason Comments Rash Specialty Diagnoses / Procedures Referred By Contac t Referred To Contact Dermatology Diagnoses Hidradenitis suppurativa Procedures [place] OFFICE/OUTPATIENT NEW HIGH MDM 60 MINUTES Joan Carrillo NP [address] [place] [address] Phone: tel: fax: Alexandre Daniel MD [address] [place] [address] Phone: tel: fax: Referral ID Status Reason Start Date Expiration Date V isits Requested Visits Authorized [id number] Closed Specialty Services Required 06/25/2024 12/22/2024 1 1 FOR RECORDS PERTAINING TO PATIENTS WHO ARE [...] BE BASED ON THE PRIMARY CLINICAL RECORDS. [facility]. provides no warranty or guarantee of the accuracy or completeness of information in this document.
[2024-10-13 16:26] LABS: Basophils Absolute Auto 0.1 10^3/uL (0.0-0.1); Basophils Percent Auto 0.6 % (0.2-2.0); Eosinophils Absolute Auto 0.2 10^3/uL (0.0-0.7); Eosinophils Percent Auto 2.3 % (0.9-7.0); Hematocrit 42.5 % (42.0-54.0); Hemoglobin 13.3 g/dL (14.0-18.0); Immature Granulocytes Abs Auto 0.03 10^3/uL (0.00-0.03); Immature Granulocytes Pct Auto 0.3 % (0.0-0.5); Lymphocytes Absolute Auto 2.3 10^3/uL (1.2-3.8); Lymphocytes Percent Auto 22.7 % (20.5-60.0); Mean Corpuscular HGB Conc 31.3 g/dL (29.9-35.2); Mean Corpuscular Hemoglobin 26.7 pg (25.9-34.0); Mean Corpuscular Volume 85.3 fL (80.0-94.0); Mean Platelet Volume 9.1 fL (9.5-13.5); Monocytes Absolute Auto 0.7 10^3/uL (0.3-0.8); Monocytes Percent Auto 7.3 % (1.7-12.0); Neutrophils Absolute Auto 6.8 10^3/uL (1.4-6.5); Neutrophils Percent Auto 66.8 % (43.0-75.0); Platelet Count 315 10^3/uL (150-450); Red Blood Count 4.98 10^6/uL (4.70-6.10); Red Cell Distribution Width 14.6 % (11.0-15.0); White Blood Count 10.2 10^3/uL (4.0-11.0)
[2024-10-13 16:58] LABS: Alanine Aminotransferase 46 U/L (16-63); Aspartate Amino Transferase 23 U/L (15-37)
[2024-10-15 06:08] LABS: HCV Antibody Non Reactive (Non Reactive)
[2024-10-16 07:11] LABS: QuantiFERON-TB Gold Plus Negative (Negative)
== END 2024-10-13 15:30 | disposition home or self-care (01) ==
LOC: LAB 15:29
PROVIDERS: PCP Nurse Practitioner; Visit Provider Nurse Practitioner
DX: L73.2 Hidradenitis suppurativa (principal); Z79.899 Other long term (current) drug therapy
CPT/HCPCS: 36415; 84450; 84460; 85025; 86480; 86803; 87340; 87389

== ENCOUNTER 2025-03-11 09:27 | Outpatient (OUT) | payer MEDICARE, SELFPAY ==
--- OUTSIDE RECORDS SUMMARY | 2025-03-11 09:41 | XMS_ITS | CCD ---
Author Organization [facility] Care Team Providers Care Stem Maker Name Role Phone Baljit Bryant Primary Care Physician AICHHOLZ, CURTAIN HEMMER AUTOMATIC JOAN Admitting Unavailable AICHHOLZ, CURTAIN HEMMER AUTOMATIC JOAN Attending Unavailable AICHHOLZ, CURTAIN HEMMER AUTOMATIC JOAN Primary Care Unavailable AICHHOLZ, CURTAIN HEMMER AUTOMATIC JOAN Consulting Unavailable ABE, DR LAURA Ribeiro Consulting Unavailable MATHUR ., DR CHASE Admitting Unavailable MATHUR ., DR CHASE Attending Unavailable AICHHOLZ, CURTAIN HEMMER AUTOMATIC JOAN Primary Care Unavailable MATHUR ., DR CHASE Consulting Unavailable CINTHIA, DARIUSZ Consulting Unavailable AICHHOLZ, CURTAIN HEMMER AUTOMATIC JOAN Admitting Unavailable AICHHOLZ, CURTAIN HEMMER AUTOMATIC JOAN Attending Unavailable AICHHOLZ, CURTAIN HEMMER AUTOMATIC JOAN Primary Care Unavailable AICHHOLZ, CURTAIN HEMMER AUTOMATIC JOAN Consulting Unavailable AICHHOLZ, CURTAIN HEMMER AUTOMATIC JOAN Admitting Unavailable AICHHOLZ, CURTAIN HEMMER AUTOMATIC JOAN Attending Unavailable AICHHOLZ, CURTAIN HEMMER AUTOMATIC JOAN Primary Care Unavailable AICHHOLZ, CURTAIN HEMMER AUTOMATIC JOAN Consulting Unavailable AICHHOLZ, CURTAIN HEMMER AUTOMATIC JOAN Admitting Unavailable AICHHOLZ, CURTAIN HEMMER AUTOMATIC JOAN Attending Unavailable AICHHOLZ, CURTAIN HEMMER AUTOMATIC JOAN Primary Care Unavailable AICHHOLZ, CURTAIN HEMMER AUTOMATIC JOAN Consulting Unavailable AICHHOLZ, CURTAIN HEMMER AUTOMATIC JOAN Admitting Unavailable AICHHOLZ, CURTAIN HEMMER AUTOMATIC JOAN Attending Unavailable AICHHOLZ, CURTAIN HEMMER AUTOMATIC JOAN Primary Care Unavailable AICHHOLZ, CURTAIN HEMMER AUTOMATIC JOAN Consulting Unavailable AICHHOLZ, CURTAIN HEMMER AUTOMATIC JOAN Admitting Unavailable AICHHOLZ, CURTAIN HEMMER AUTOMATIC JOAN Attending Unavailable AICHHOLZ, CURTAIN HEMMER AUTOMATIC JOAN Primary Care Unavailable AICHHOLZ, CURTAIN HEMMER AUTOMATIC JOAN Consulting Unavailable AICHHOLZ, JOAN J Primary [...] Collins Attending Unavailable Demarco Collins Admitting Unavailable MoDemarco negrete Attending Unavailable MoDemarco negrete Referring Unavailable MD Jason West Admitting Unavailable MD Jason West Attending Unavailable Silvio Sharp Consulting Unavailabl e Silvio Sharp Consulting Unavailabl e Aron, Silvio Hendrickson Consulting Unavailabl e Aichholz BATCH UNLOADER, Joan Unavailable Casey Silva MD Primary Care Provider Demarco Collins Referring Unavailable Demarco Collins Attending Unavailable Demarco Collins EMaddie Admitting Unavailable AICHHOLZ, JOAN Attending Unavailable PETITTI, ALEXANDRE A Attending Unavailable AICHHOLZ, JOAN Attending Unavailable AICHHOLZ, JOAN Attending Unavailable AICHHOLZ, JOAN Attending Unavailable PETITTI, ALEXANDRE A Attending Unavailable AICHHOLZ, JOAN Referring Unavailable Allergies Allergy Classification Reported Allergen(s) Allergy Type Date of Onset Reaction(s) Facility (15 sources) No Known Medication Allergies; Translations: [No Known Medication Allergies] Propensity to adverse reactions (disorder) [facility] Repository Medications Current Medications Medication Drug [...] Refills(s) 0 Start Date: 03/19/24 Status: Ordered 0.8 ml adalimumab 100 mg/ml auto-injector (14 sources) Tumor Necrosis Factor Des Start: 12-21-2024 Adalimumab (Humira-CD/UC/HS Starter) 80 MG/0.8ML Auto-injector Kit Indications: Hidradenitis suppurativa Inject 80 mg under the skin See administration instructions Starter dosing: Inject 160 mg (2 pens) subcutaneous on day 1, then 80 mg on day 15 (1 pen) then 80 mg (1 pen) on day 29. 4 each 12/21/2024 Active Start: 12-21-2024 Adalimumab (Hu rajeev, 2 Pen,) 80 MG/0.8ML Auto-injector Kit Indications: Hidradenitis Suppurativa Inject 80 mg under the skin every 14 (fourteen) days 2 each 12/21/2024 Active Start: 10-29-2024 Adalimumab (Hu rajeev-CD/UC/HS Starter) 80 MG/0.8ML Auto- injector Kit Indications: Hidradenitis suppurativa Inject 80 mg under the skin See administration instructions Starter dosing: Inject 160 mg (2 pens) subcutaneous on day 1, then 80 mg on day 15 (1 pen) then 80 mg (1 pen) on day 29. 4 each 10/29/2024 Active Start: 10-29-2024 Humira, 2 Pen, 80 MG/0.8ML Auto-injector Kit Indications: Hidradenitis Suppurativa Inject 80 mg under the skin every 14 (fourteen) days 2 each 11 10/29/2024 Active amLODIPine 10 mg oral tablet (20 sources) Dihydropyridine Calcium Channel Des Start: 08-19-2024 End: 04-12-2025 take 1 tablet by mouth once daily amLODIPine (Norvasc) 10 MG tablet Indications: Primary hypertension Take 1 tablet (10 mg) by mouth Daily 90 tablet 01/12/2025 04/12/2025 Active Start: 06-25-2024 End: 11-03-2024 take 1 [...] aspirin 81 mg delayed release oral tablet (19 sources) Platelet Aggregation Inhibitor, Nonsteroidal Anti-inflammatory Drug take 1 tablet by mouth once daily aspirin 81 MG EC tablet Take 81 mg by mouth Daily Active atorvastatin 20 mg oral tablet (20 sources) HMG-CoA Reductase Inhibitor Start: 03-26-2024 End: 04-04-2025 take 1 tablet by mouth in the evening atorvastatin (Lipitor) 20 MG tablet Indications: Hypertriglyceridemia Take 1 tablet (20 mg) by mouth in the evening 90 tablet 1 01/04/2025 04/04/2025 Active Start: 08-14-2023 atorvastatin 2 0 mg Tab Daily, Refills(s) 0 Start Date: 08/14/23 Status: Ordered Blood Glucose Monitoring Sup pl (True Metrix Go Glucose Meter) w/Device kit (20 sources) Start: 08-10-2024 End: 08-10-2025 Blood Glucose Monitoring Sup [address] (True Metrix Go Glucose Meter) w/Device kit Indications: Type 2 diabetes mellitus without complication, without long-term current use of insulin ([facility]) 1 each by Other route Daily USE 1 TIME DAILY TO CHECK BLOOD SUGAR 1 kit 08/10/2024 08/10/2025 Active Start: 08-10-2024 End: 08-10-20[address] (True Metrix Go Glucose Meter) w/Device kit Indications: Type 2 diabetes mellitus without complication, without long-term current use of insulin 1 each by Other route Daily USE 1 TIME DAILY TO CHECK BLOOD SUGAR 1 kit 08/10/2024 08/10/2025 Active Start: 08-10-2024 End: 08-10-2025 Blood Glucose Monitoring [...] oral tablet (20 sources) Start: 03-26-2024 End: 04-12-2025 take 1 tablet by mouth in the morning busPIRone (Buspar) 5 MG tablet Indications: Anxiety and depression Take 1 tablet (5 mg) by mouth in the morning and 1 tablet (5 mg) before bedtime. 180 tablet 01/12/2025 04/12/2025 Active Start: 11-01-2022 take 1 mg by mouth twice daily busPIRone 5 mg Tab mg tab(s), Oral, BID, Refills(s) 0 Start Date: 11/01/22 Status: Ordered carvedilol 3.125 mg oral tablet (11 sources) alpha-Adrenergic Des, beta-Adrenergic Des Start: 10-21-2024 End: 04-12-2025 take 1 tablet by mouth in the morning carvedilol (Coreg) 3.125 MG tablet Indications: Primary hypertension Take 1 tablet (3.125 mg) by mouth in the morning and 1 tablet (3.125 mg) in the evening. Take with meals. 180 tablet 01/12/2025 04/12/2025 Active chlorhexidine gluconate 40 mg/ml medicated liquid soap (14 sources) Start: 09-28-2024 Chlorhexidine Gluconate (Hibiclens) 4 % solution Indications: Hidradenitis suppurativa Use from the neck down in shower then rinse off 2-3x/week 473 mL 11 09/28/2024 Active clindamycin 10 mg/ml topical lotion (14 sources) Lincosamide Antibacterial Start: 09-28-2024 clindamycin (Cleocin T) 1 % lotion Indications: Hidradenitis suppurativa Apply thin layer to affected areas on leg, groin, abdomen, once daily, 30 day supply 60 mL 11 09/28/2024 Active Continuous Glucose Tester Armature Or Fields (FreeStyle Mihai 3 Golden Eagle) device (5 sources) Start: 10-21-2024 End: 10-21-2025 Continuous Glucose Tester Armature Or Fields (FreeStyle Mihai 3 Golden Eagle) device Indications: Type 2 diabetes mellitus without complication, without long-term current use of insulin (CMS/[facility]) 1 each Daily 1 each 10/21/2024 10/21/2025 Active End: 10-21-2024 Continuous Glucose Tester Armature Or Fields (FreeStyle Mihai 3 Golden Eagle) device 1 each Daily 10/21/2024 Discontinued (Reorder) Continuous Glucose Sensor (FreeStyle Mihai 3 Sensor) misc (5 sources) Start: 10-21-2024 End: 11-18-2024 Continuous Glucose Sensor (FreeStyle Mihai 3 Sensor) misc Indications: Type 2 diabetes mellitus without complication, without long-term current use of insulin (CMS/HCC) 1 each Daily for 28 days 2 each 11 10/21/2024 11/18/2024 Active End: 10-21-2024 Continuous Glucose Sensor (F reeStyle Mihai 3 Sensor) misc 1 each Daily 10/21/2024 Discontinued (Reorder) dapagliflozin 10 mg oral tablet (20 sources) Sodium-Glucose Cotransporter 2 Inhibitor Start: 06-25-2024 End: 04-12-2025 take 1 tablet by mouth once daily dapagliflozin (Farxiga) 10 MG Indications: Type 2 diabetes mellitus with other skin complication, without long-term current use of insulin (HCC) Take 1 tablet (10 mg) by mouth Daily 90 tablet 01/12/2025 04/12/2025 Active Start: 03-26-2024 End: 06-25-2024 take 1 [...] 14 cap(s), Refills(s) 0, [facility]acy: [facility] #[id number], 185.4, cm, 03/14/24 17:53:00 EDT, Height/Length Dosing, 182, kg, 03/14/24 17:53:00 EDT, Weight Dosing Start Date: 03/19/24 Stop Date: 03/26/24 Status: Ordered gabapentin 300 mg oral capsule (20 sources) Anti-epileptic Agent Start: 06-25-2024 End: 04-12-2025 take 1 capsule by mouth at bedtime gabapentin (Neurontin) 300 MG capsule Indications: Neuropathy Take 1 capsule (300 mg) by mouth at bedtime 90 capsule 1 01/12/2025 04/12/2025 Active glimepiride 4 mg oral tablet (20 sources) Sulfonylurea Start: 03-26-2024 End: 04-04-2025 take 1 tablet by mouth before mealtime glimepiride (Amaryl) 4 MG tablet Indications: Type 2 diabetes mellitus with other skin complication, without long-term current use of insulin (HCC) Take 1 tablet (4 mg) by mouth in the morning. Take before meals. 90 tablet 1 01/04/2025 04/04/2025 Active Start: 11-01-2022 take 1 mg by mouth once daily glimepiride 4 mg Tab mg tab(s), Oral, Daily, Refills(s) 0 Start Date: 11/01/22 Status: Ordered losartan potassium 100 mg oral tablet (20 sources) Angiotensin 2 Receptor Des Start: 03-26-2024 End: 04-04-2025 take 1 tablet by mouth once daily losartan (Cozaar) 100 MG tablet Indications: Primary hypertension Take 1 tablet (100 mg) by mouth Daily 90 tablet 1 01/04/2025 04/04/2025 Active Start: 11-01-2022 take 1 mg by [...] complication, without long-term current use of insulin (HCC) Take 1 tablet (1,000 mg) by mouth in the morning and 1 tablet (1,000 mg) in the evening. Take with meals. 180 tablet 1 08/05/2024 Active Start: 11-01-2022 take 1 mg by [...] XL (Ditropan-XL) 5 MG 24 hr tablet Take 5 mg by mouth Daily 11/07/2024 Active Start: 08-14-2023 oxybutynin 5 m g ER Tab Daily, Refills(s) 0 Start Date: 08/14/23 Status: Ordered oxyCODONE hydrochloride 5 mg oral tablet (1 source) Opioid Agonist Start: 03-19-2024 End: 03-22-2024 oxyCODONE 5 mg Tab 5 mg = 1 tab(s), Oral, q6hr, PRN Pain 8-10, X 3 day(s), # 12 tab(s), Refills(s) 0, [id number], 185.4, cm, 03/14/24 17:53:00 EDT, Height/Length Dosing, 182, kg, 03/14/24 17:53:00 EDT, Weight Dosing Start Date: 03/19/24 Stop Date: 03/22/24 Status: Ordered pantoprazole 20 mg delayed release oral tablet (20 sources) Proton Pump Inhibitor Start: 04-03-2024 End: 04-12-2025 take 1 tablet by mouth in the morning pantoprazole (ProtoNix) 20 MG EC tablet Indications: Gastroesophageal reflux disease without esophagitis Take 1 tablet (20 mg) by mouth in the morning and at noon 180 tablet 1 01/12/2025 04/12/2025 Active Tirzepatide (Mounjaro) 2.5 MG/0.5ML solution auto-injector (4 sources) Start: 08-19-2024 End: 09-16-2024 Tirzepatide (Mounjaro) 2.5 MG/0.5ML solution auto-injector Indications: Type 2 diabetes mellitus without complication, without long-term current use of insulin ([facility]) Inject 2.5 mg under the skin every 7 (seven) days for 28 days 2 mL 08/19/2024 09/16/2024 Active Tirzepatide (Mounjaro) 7.5 MG/0.5ML solution auto-injector (3 sources) Start: 10-21-2024 End: 11-18-2024 Tirzepatide (Mounjaro) 7.5 MG/0.5ML solution auto-injector Indications: Type 2 diabetes mellitus without complication, without long-term current use of insulin (CMS/HCC) Inject 7.5 mg under the skin every 7 (seven) days for 28 days 2 mL 3 10/21/2024 11/18/2024 Active 24 hr venlafaxine 75 mg extended release oral capsule (20 sources) Serotonin and Norepinephrine Reuptake Inhibitor Start: 10-21-2024 End: 04-12-2025 take 2 capsules by mouth once daily venlafaxine XR (Effexor XR) 75 MG 24 hr capsule Indications: Anxiety and depression Take 2 capsules (150 mg) by mouth Daily 180 capsule 01/12/2025 04/12/2025 Active Start: 03-26-2024 End: 11-03-2024 take 1 capsule by mouth once daily venlafaxine XR (Effexor XR) 75 MG 24 hr capsule Indications: Anxiety and depression (CMS/HCC) Take 1 capsule (75 mg) by mouth Daily 90 capsule 1 08/05/2024 10/21/2024 Discontinued (Reorder) Start: 11-01-2022 take 1 mg by mouth [...] Active Start: 11-05-2022 take 1 capsule by [facility] every twelve hours Keflex 500 mg Cap 500 mg = 1 cap(s), Oral, q12hr, # 60 caplet(s), Refills(s) 1, Pharmacy: [facility] #[id number], 185, cm, 11/05/22 10:09:00 EST, Height/Length Dosing, 168, kg, 11/05/22 10:09:00 EST, Weight Dosing Start Date: 11/05/22 Status: Ordered doxycycline monohydrate 100 mg oral capsule (9 sources) Tetracycline-class Drug Start: 01-18-2025 End: 03-08-2025 take 1 capsule by mouth twice daily doxycycline (Monodox) 100 MG capsule Indications: Hidradenitis suppurativa Take 1 capsule, by mouth, bid x 7 days 14 capsule 01/18/2025 03/08/2025 Discontinued (Therapy completed) Start: 08-17-2024 End: 08-31-2024 doxycycline (Vibra-Tabs) 100 MG tablet Indications: Hidradenitis suppurativa Take 1 tablet (100 mg) by mouth in the morning and 1 tablet (100 mg) before bedtime. Do all this for 14 days. Take with a full glass of water and do not lie down for at least 30 minutes after.. 28 tablet 08/17/2024 08/31/2024 Active insulin glargine 100 unt/ml injectable solution (2 [...] Date: 03/05/24 Stop Date: 03/04/24 Status: Completed sulfamethoxazole 800 mg / trimethoprim 160 mg oral tablet (18 sources) Dihydrofolate Reductase Inhibitor Antibacterial, Sulfonamide Antimicrobial Start: 01-02-2024 End: 08-17-2024 take 1 tablet by mouth every twelve hours sulfamethoxazole-trimethoprim (Bactrim DS) 800-160 MG per tablet Take 1 tablet by mouth every 12 (twelve) hours 01/02/2024 08/17/2024 Discontinued (Therapy completed) Tirzepatide (Mounjaro) 5 MG/0.5ML solution auto-injector (5 sources) Start: 10-04-2024 End: 10-21-2024 Tirzepatide (Mounjaro) 5 MG/0.5ML solution auto-injector Indications: Type 2 diabetes mellitus without complication, without long-term current use of insulin (CMS/HCC) Inject 5 mg under the skin every 7 (seven) days for 28 days 2 mL 1 10/04/2024 10/21/2024 Discontinued (Ineffective) Start: 10-04-2024 End: 11-01-2024 Tirzepatide (Mounjaro) 5 MG/ 0.5ML solution auto-injector Indications: Type 2 diabetes mellitus without complication, without long-term current use of insulin (CMS/HCC) Inject 5 mg under the skin every 7 (seven) days for 28 days 2 mL 1 10/04/2024 11/01/2024 Active Problems Active Problems Problem Classification Problem Date Documented Da te Episodic/Chronic Anxiety disorders (20 sources) Anxiety; Translations: [Mixed anxiety and depressive disorder] Onset: 4 Resolved: 4 11-05-2022 Chronic Diabetes mellitus with complications (20 sources) Type 2 diabetes mellitus with other skin complications; Translations: [Diabetes with other specified manifestations, type II or unspecified type, not stated as uncontrolled] Onset: 3 Resolved: 4 08-27-2023 Chronic Diabetes mellitus without complication (20 sources) Type 2 diabetes mellitus; Translations: [Type 2 diabetes mellitus without complications] Onset: 3 11-01-2022 Chronic Disorders of lipid metabolism (20 sources) Hypertriglyceridemia; Translations: [Pure hyperglyceridemia] Onset: 4 Resolved: 5 09-24-2023 Chronic Esophageal disorders (20 sources) Gastroesophageal [...] site] Onset: 4 10-10-2023 Chronic Other aftercare (4 sources) Taking high risk medication; Translations: [Other chcf (current) drug therapy] 09-28-2024 Episodic Other diseases [...] [SOLITARY PULMONARY NODULE] Onset: 3 Episodic Other nutritional; endocrine; and metabolic disorders (20 [...] 50.0-59.9, adult] Onset: 4 10-10-2023 Chronic Other nutritional; endocrine; and metabolic disorders (12 sources) Obesity caused by energy imbalance; Translations: [Morbid (severe) obesity due to excess calories] Onset: 4 10-21-2024 Chronic Other skin disorders (4 sources) Hidradenitis suppurativa; Translations: [HIDRADENITIS SUPPURATIVA] Onset: 3 Episodic Other skin disorders (20 sources) Hidradenitis suppurativa; Translations: [Hidradenitis suppurativa] Onset: 4 09-24-2023 Episodic Substance-related disorders (3 sources) Smoker 11-01-2022 Chronic Past or Other Problems Problem Classification Problem Date Documented Date Episodic/Chronic Abdominal hernia (20 sources) Hernia of anterior abdominal wall; Translations: [Unspecified abdominal hernia without obstruction or gangrene] Onset: 11-05-2022 Resolved: 10-10-2023 Episodic Mood disorders (20 sources) Mood disorders Onset: 03-26-2024 03-26-2024 Other hematologic conditions (20 sources) Increased serum protein level; Translations: [Abnormality of plasma protein, unspecified] Onset: 09-24-2023 09-24-2023 Episodic Other lower respiratory disease (20 sources) Nodule of lung; Translations: [Solitary pulmonary nodule] Onset: 09-24-2023 09-24-2023 Episodic Other nervous system disorders (20 sources) Neuropathy; Translations: [Polyneuropathy, unspecified] Onset: 06-25-2024 Resolved: 10-21-2024 06-25-2024 Chronic Residual codes; unclassified (20 sources) History of [...] Test Name Value Interpretation Reference Range Facility HbA1c (Bld) [Mass fraction]o n 10-21-2024 Interpretation and review of laboratory results Abnormal [facility] - Hematology and Cell countson 10-21-2024 HbA1c (Bld) [Mass fraction] 10.30 % [facility] ALL CBC WITH AUTO DIFFon BASOPHILS ABSOLUTE AUTO 0.1 [facility] Basophils/100 WBC (Bld) 0.6 % 0.2 - 2.0 % [facility] Eosinophils/100 WBC (Bld) 2.3 % 0.9 - 7.0 % [facility] Erythrocyte distribution width (RBC) [Ratio] 14.6 % 11.0 - 15.0 % [facility] Hematocrit (Bld) [Volume fraction] 42.5 % 42.0 - 54.0 % [facility] Hemoglobin (Bld) [Mass/Vol] 13.3 g/dL Low 14.0 - 18.0 g/dL [facility] IMMATURE GRANULOCYTES ABS AUTO 0.03 [facility] Immature granulocytes/100 WBC (Bld) 0.3 % 0.0 - 0.5 % [facility] Interpretation and review of laboratory results Abnormal [facility] LYMPHOCYTES ABSOLUTE AUTO 2.3 [facility] Lymphocytes/100 WBC (Bld) 22.7 % 20.5 - 60.0 % [facility] MCH (RBC) [Entitic mass] 26.7 pg 25.9 - 34.0 pg [facility] MCHC (RBC) [Mass/Vol] 31.3 g/dL 29.9 - 35.2 g/dL [facility] MCV (RBC) [Entitic vol] 85.3 fL 80.0 - 94.0 fL [facility] MONOCYTES ABSOLUTE AUTO 0.7 [facility] Monocytes/100 WBC (Bld) 7.3 % 1.7 - 12.0 % [facility] NEUTROPHILS ABSOLUTE AUTO 6.8 High [facility] Neutrophils/100 WBC (Bld) 66.8 % 43.0 - 75.0 % [facility] Platelet mean volume (Bld) [Entitic vol] 9.1 fL Low 9.5 - 13.5 fL [facility] EO # 0.2 [facility] PLT 315 [facility] TB RBC 4.98 [facility] WBC 10.2 [facility] Main OR Intraoperative Recor don 06-30-2024 Main OR Intraoperative Record Main OR Intraoperative Record IntraOp Document Type FT Summary Primary Physician: Demarco Collins MD Finalized Date/Time: 06/30/24 09:52:21 Pt. Name: CHRISTIAN SHELBY/Sex: 1975 Male Med Rec #: [id number] Physician: Demarco Collins MD Financial #: [id number] Pt. Type: O Room/Bed: / Admit/Disch: 06/29/24 [...] 3 Case Attendee Nabil BOBBY, Rajat Walker, Demarco Kirkland MD Role Performed Anesthesiologist Scrub - Primary Surgeon - Primary Cylinder Die Machine Operator Time In 06/29/24 07:39:00 06/29/24 07:39:00 06/29/24 07:39:00 Time Out 06/29/24 07:50:00 06/29/24 07:50:00 06/29/24 07:50:00 Procedure EGD(.) EGD(.) EGD(.) Comments Dr. Layne supervising Last Modified By: Isatu Hall RN, RN, Angela Workman RN, Angela 06/29/24 07:50:24 06/29/24 07:50:24 06/29/24 07:50:24 Entry 4 Case Attendee Isatu Hall RN Role Performed Mineralogy Professor - Primary Time In 06/29/24 07:39:00 Time [...] Time Out Rajat Barron Given Participants Aaron Montogmery Micala E, Mourany MD, Isabel Payton RN, Angela Time Out Complete 06/29/24 07:42:00 Outcomes Met? [...] Description EGD Primary Procedure Yes Primary Surgeon Demarco Collins MD Start 06/29/24 07:43:00 Stop 06/29/24 07:46:00 Anesthesia [...] and tissue Entry 1 Skin Integrity Intact, [place], Warm, & Skin Abnormality No Dry Outcomes [...] Hall RN (more content not included)... [facility] Discharge Instructionson Discharge Instructions Discharge Instructions CHRISTIAN SHELBY :1975 Visit Date:06/29/2024 Inpatient Discharge Instructions Your Care Team Admitting Physician - Demarco Collins MD Referring Physician - Mourany MD, Demarco E. Reason for Your Visit GASTRISTIS This Is [...] Date and Time of Follow-up Appt. Where: [address] [place] [address], [address] [place] [address]- [phone] Medications What How Much When Why Instructions [...] of th (more content not included)... [facility] Comment on above: Result Comment: Elec tronically Signed By: Eneida Mendoza RN\.br\Date and Time Signed: 06/29/24 08:08 EDT Main OR PACU II Recordon Main OR PACU II Record Main OR PACU II Record PACU Phase II Document Type FT Summary Primary Physician: Demarco Collins MD Finalized Date/Time: 06/29/24 08:11:25 Pt. Name: CHRISTIAN SHELBY/Sex: 1975 Male Med Rec #: [id number] Physician: Demarco Collins MD Financial #: [id number] Pt. Type: O Room/Bed: / Admit/Disch: 06/29/24 [...] Signed By: Eneida Mendoza RN 06/29/24 08:11 [facility] Main OR Preoperative Recordo n 06-29-2024 Main OR Preoperative Record Main OR Preoperative Record Holding Area Document Type FT Summary Primary Physician: Demarco Collins MD Finalized Date/Time: 06/29/24 06:55:57 Pt. Name: CHRISTIAN SHELBY/Sex: 1975 Male Med Rec #: [id number] Physician: Demarco Collins MD Financial #: [id number] Pt. Type: O Room/Bed: / Admit/Disch: 06/29/24 06:40:45 - Institution: Case Times Holding FT Pre-Care Text: Verifies consent for planned procedure, identifies individual values and wishes concerning care, includes family members in perioperative teaching Secures patient's records' belongings, and valuables, maintains patient's dignity and privacy, and maintains patient confidentiality Entry 1 In Holding 06/29/24 06:50:00 Outcomes Met? Yes Last Modified By: Keon WILHELM, Jo Ann Collazo 06/29/24 06:55:19 Post-Care Text: The patient participates [...] Jo Ann Herbert RN 06/29/24 06:55 [facility] Operative Reporton Operative Report Operative Report [...] Complications: none. Estimated blood loss: none. [facility] Comment on above: Result Comment: Elec [...] is negative. Procedure history: EGD - esophagogastroduodenoscopy ([id number]) on 06/29/2024 at 48 Years. Colonoscopy ([id number]) on 04/03/2024 at 48 Years. Comments: 04/03/2024 15:52 EDT - Rupesh WILHELM, Flores normal Esophagogastroduodenoscopy ([id number]) on 04/03/2024 at 48 Years. Comments: 04/03/2024 15:53 EDT - Flores Goddard RN duodenitis, antral biiopsy Drainage of scrotal abscess ([id number]) on 03/21/2016 at 40 Years. Tonsillectomy ([id number]). Social History Social & Psychosocial Habits Alcohol [...] Condition: Stable. Course: Progressing as expected. [facility] Comment on above: Result Comment: Elec tronically Signed By: Karina MARTINEZ, Demarco Jack.br\Date and Time Signed: 06/29/24 10:25 EDT ALL CBC WITH AUTO DIFFon BASOPHILS ABSOLUTE AUTO 0.1 [facility] Basophils/100 WBC (Bld) 0.5 % 0.2 - 2.0 % [facility] Eosinophils/100 WBC (Bld) 2.8 % 0.9 - 7.0 % [facility] Erythrocyte distribution width (RBC) [Ratio] 14.4 % 11.0 - 15.0 % [facility] Hematocrit (Bld) [Volume fraction] 42.4 % 42.0 - 54.0 % [facility] Hemoglobin (Bld) [Mass/Vol] 13.1 g/dL Low 14.0 - 18.0 g/dL [facility] IMMATURE GRANULOCYTES ABS AUTO 0.07 High [facility] Immature granulocytes/100 WBC (Bld) 0.6 % High 0.0 - 0.5 % [facility] Interpretation and review of laboratory results Abnormal [facility] LYMPHOCYTES ABSOLUTE AUTO 3.2 [facility] Lymphocytes/100 WBC (Bld) 26.0 % 20.5 - 60.0 % [facility] MCH (RBC) [Entitic mass] 26.3 pg 25.9 - 34.0 pg [facility] MCHC (RBC) [Mass/Vol] 30.9 g/dL 29.9 - 35.2 g/dL [facility] MCV (RBC) [Entitic vol] 85.1 fL 80.0 - 94.0 fL [facility] MONOCYTES ABSOLUTE AUTO 0.9 High [facility] Monocytes/100 WBC (Bld) 7.6 % 1.7 - 12.0 % [facility] NEUTROPHILS ABSOLUTE AUTO 7.6 High [facility] Neutrophils/100 WBC (Bld) 62.5 % 43.0 - 75.0 % [facility] Platelet mean volume (Bld) [Entitic vol] 8.7 fL Low 9.5 - 13.5 fL [facility]H EO # 0.3 [facility] PLT 329 [facility] TB RBC 4.98 [facility] WBC 12.2 High [facility] Reminderson 04-16-2024 Reminders Reminders From: Joan Cutler MA To: N - Clinical; Sent: 04/16/2024 15:36:46 EDT Show up: 03/04/2034 15:36:00 EDT Subject: Colonoscopy recall 10 years Reminder/Recall Last colonoscopy: 04/03/2024 Repeat: 10 years Reason: Screening colonoscopy Normal [facility] Operative Reporton Operative Report Operative Report [...] Plan EGD: Course: Progressing as expected. Normal [facility] Comment on above: Result Comment: Elec [...] history and physical Documented on chart. Colonoscopy ([id number]) on 04/03/2024 at 48 Years. Comments: 04/03/2024 15:52 EDT Miki Goddard RN, Flores normal Esophagogastroduodenoscopy ([id number]) on 04/03/2024 at 48 Years. Comments: 04/03/2024 15:53 ALANT Miki Goddard RN, Flores duodenitis, antral biiopsy Drainage of scrotal abscess ([id number]) on 03/21/2016 at 40 Years. Tonsillectomy ([id number]).. Past Medical History No active or resolved past medical history items have been selected or recorded.. Family History Entire family history is negative.. Procedure History Colonoscopy ([id number]) on 04/03/2024 at 48 Years. Comments: 04/03/2024 15:52 ALANT Miki Goddard RN, Flores normal Esophagogastroduodenoscopy ([id number]) on 04/03/2024 at 48 Years. Comments: 04/03/2024 15:53 ALANT Miki Goddard RN, Flores duodenitis, antral biiopsy Drainage of scrotal abscess ([id number]) on 03/21/2016 at 40 Years. Tonsillectomy ([id number]).. Colorectal neoplasm risk assessment Average risk. Informed Consent After discussing the rationale, risks and benefits, and alternatives to this procedure, the patient provided signed consent for the procedure. Pre-procedure diagnosis: No prior colonoscopy. Medications (Selected) Prescriptions Prescribed Carafate 1 gram Tab: 1 gm = 1 tab(s), Oral, QID, X 60 day(s), # 240 tab(s), Refills(s) 0, Pharmacy: [facility]/pharmacy #[id number], 185, cm, 04/03/24 12:38:00 EDT, Height/Length Dosing, 182, kg, 04/03/24 12:38:00 EDT, Weight Dosing Pantoprazole [address] Tab: 20 mg = 1 tab(s), Oral, BID, X 60 day(s), # 120 tab(s), Refills(s) 0, Pharmacy: [facility]/pharmacy #[id number], 185, cm, 04/03/24 12:38:00 EDT, Height/Length [...] medications. Return to activities:: After 24 hours. [facility] Comment on above: Result Comment: Elec tronically Signed By: Karina MARTINEZ, Demarco Herrera\Date and Time Signed: 04/10/24 07:47 EDT Surgical Pathology Reporton 04-08-2024 Surgical Pathology Report [facility] [address] [place] [address]- Surgical Pathology Report Collected Date/Time: 04/03/2024 15:25 [...] is entirely submitted in one cassette. (DC) DC:[facility] Microscopic Description A&B: Microscopic examination performed unless gross only specified. The use of one or more reagents in the above tests is regulated as an analyte specific reagent (ASR). The test or tests are ordered following initial H&E microscopic examination. The performance characteristics were determined by the Laboratory [facility]. They have not been cleared or approved by the US Food and Drug Administration. The FDA has determined that such clearance or approval is not necessary. These tests are used for clinical purposes. They should not be regarded as investigational or for research. Appropriate positive and negative controls are performed and are acceptable. Normal [facility] Comment on above: Performed By: #### 4 [id number] #### [facility] [address] [place] [address] Performed By: #### 4 [id number] ####[facility] [address] [place] [address] Main OR Intraoperative Recor don 04-06-2024 Main OR Intraoperative Record Main OR Intraoperative Record IntraOp Document Type FT Summary Primary Physician: Demarco Collins MD Finalized Date/Time: 04/06/24 08:26:26 Pt. Name: CHRISTIAN SHELBY /Sex: 1975 Male Med Rec #: [id number] Physician: Demarco Collins MD Financial #: [id number] Pt. 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 Time In 04/03/24 15:12:00 04/03/24 15:12:00 04/03/24 [...] Bennett RN Role Performed Surgeon - Primary Mineralogy Professor - Primary Time In 04/03/24 15:12:00 04/03/24 15:12:00 Time Out 04/03/24 15:44:00 04/03/24 15:44:00 Procedure EGD AND COLONOSCOPY(.) EGD AND COLONOSCOPY(.) Comments Last Modified By: Isatu Hall RN, RN, Angela 04/03/24 15:44:13 04/03/24 15:44:13 Perioperative Protocols FT [...] Nilda Suárez Sparks, Micala E, Karina MARTINEZ, Demarco Martins, Isatu Hall RN [...] and tissue Entry 1 Skin Integrity Intact, [place], Warm, & Skin Abnormality No Dry Outcomes [...] as a (more content not included)... Normal [facility] Discharge Instructionson Discharge Instructions Discharge Instructions [...] screening colonoscopy Duration: 60 Days Pickup at [facility]/pharmacy #[id number] New sucralfate (Carafate 1 gram Tab) 1 Tablets By Mouth 4 times a day Melena Encounter for screening colonoscopy Duration: 60 Days Pickup at [facility]/pharmacy #[id number] Unchanged acetaminophen (acetaminophen 325 mg [...] Cap-ER) By Mouth Every day Pharmacy Information [facility]/pharmacy #[id number]: [address], [place] [phone] Test Results No qualifying data available. Allergies [...] liquid (barium) (more content not included)... Normal [facility] Comment on above: Result Comment: Elec tronically Signed By: Flores Goddard RN\.jeniffer\Date and Time Signed: 04/03/24 15:59 EDT Inpatient Patient Summaryon 04-03-2024 Inpatient Patient Summary Inpatient Patient Summary [place] [id number] [facility] Clinical Discharge Instructions PERSON INFORMATION Name: CHRISTIAN [...] PM Confirmed MEDICATION LIST New Medications [id number], [address], [place] [phone], [phone] pantoprazole (Pantoprazole [address] Tab) 1 [...] Cap-ER) By Mouth every day. Comment: Normal [facility] Main OR PACU I Recordon 03-10 Main OR PACU I Record Main OR PACU I Record PACU Phase I Document Type FT Summary Primary Physician: Demarco Collins MD Finalized Date/Time: 04/03/24 16:54:21 Pt. Name: CHRISTIAN SHELBY /Sex: 1975 Male Med Rec #: [id number] Physician: Demarco Collins MD Financial #: [id number] Pt. Type: O Room/Bed: / Admit/Disch: 04/03/24 [...] 16:35 Meenakshi Gerber RN 04/03/24 16:54 Normal [facility] Main OR Preoperative Recordo n 04-03-2024 Main OR Preoperative Record Main OR Preoperative Record Holding Area Document Type FT Summary Primary Physician: Demarco Collins MD Finalized Date/Time: 04/03/24 14:32:23 Pt. Name: ELDON SHELBYJUDE Mattson/Sex: 1975 Male Med Rec #: [id number] Physician: Demarco Collins MD Financial #: [id number] Pt. Type: O Room/Bed: / Admit/Disch: 04/03/24 [...] completed prep at 1130 and remained NPO since/MELONIE CERNA Finalized By: Cynthia Allen RN Document Signatures Signed By: Cynthia Allen RN 04/03/24 14:32 Normal [facility] Outpatient Surgery Discharge Instructionon 04-03-2024 Outpatient Surgery Discharge Instruction Outpatient Surgery Discharge Instruction [place] [id number] Patient Discharge Instructions PERSON INFORMATION Name: CHRISTIAN [...] Information: You may receive a survey from [employer] asking you to rate your care experience. Your feedback is important and will help us understand what we do well and how we can improve the quality of care we provide to you, your loved ones and our community. It?s an honor to serve you. Thank you for choosing [facility] HERE ARE THE MEDICATION CHANGES THAT OCCURRED DURING YOUR HOSPITAL STAY New Medications [id number], [address], [place] [phone], [phone] pantoprazole (Pantoprazole [address] Tab) 1 [...] activities are safe for you. ? Take [id number]-gaigubc and prescription medicines only as told by [...] care pro (more content not included)... Normal [facility] Trauma Office/Clinic Noteon 03-26-2024 Trauma Office/Clinic [...] 03/16/2024: +flatus, +nausea but no vomiting. on AIRDOX FITTER for pain 03/17/2024: tolerating diet, +BM 03/18/2024: [...] Use:. Cigar (more content not included)... Normal [facility] Comment on above: Result Comment: Elec tronically Signed By: Leandra Wallace PA-C\.br\Date and Time Signed: 03/25/24 10:23 EDT\.br\Electronically Co-Signed By: Amparo MARTINEZ, Alesha Wray\.br\Date and Time Co-Signed: 03/26/24 14:28 EDT BMPon 03-19-2024 Anion gap [Moles/Vol] 8 mmol/L Normal 6-16 [facility] Comment on above: Performed By: #### 2 [id number] #### [facility] [address] [place] [address] Calcium [Mass/Vol] 7.7 mg/dL Low 8.9-11.1 [facility] Comment on above: Performed By: #### 2 [id number] #### [facility] [address] [place] [address] Chloride [Moles/Vol] 105 mmol/L Normal 101-111 [facility] Comment on above: Performed By: #### 2 [id number] #### [facility] [address] [place] [address] CO2 [Moles/Vol] 28 mmol/L Normal 21-31 [facility] Comment on above: Performed By: #### 2 [id number] #### [facility] [address] [place] [address] Creatinine [Mass/Vol] 0.5 mg/dL Normal 0.5-1.3 [facility] Comment on above: Performed By: #### 2 [id number] #### [facility] [address] [place] [address] Glucose [Mass/Vol] 197 mg/dL Normal 55-199 [facility] Comment on above: Performed By: #### 2 [id number] #### [facility] [address] [place] [address] Potassium [Moles/Vol] 3.3 mmol/L Low 3.5-5.3 [facility] Comment on above: Performed By: #### 2 [id number] #### [facility] [address] [place] [address] Sodium [Moles/Vol] 138 mmol/L Normal 135-145 [facility] Comment on above: Performed By: #### 2 370512 #### [facility] [address] [place] [address] Urea nitrogen [Mass/Vol] 9 mg/dL Normal 5-21 [facility] Comment on above: Performed By: #### 2 [id number] #### [facility] [address] [place] [address] Urea nitrogen/Creatinine [Mass ratio] 18 No Units Normal 10-20 [facility] Comment on above: Performed By: #### 2 064348 #### [facility] [address] [place] [address] CBC w/ Auto Diffon 4 Basophils/100 WBC (Bld) 0.4 % Normal 0.0-2.0 [facility] Comment on above: Performed By: #### 2 664912 #### [facility] [address] [place] [address] Basophils/Leukocytes Auto (Bld) [Pure # fraction] 0.0 E9/L Normal 0.0-0.2 [facility] Comment on above: Performed By: #### 2 664304 #### [facility] [address] [place] [address] Eosinophils (Bld) [#/Vol] 0.1 E9/L Normal 0.0-0.5 [facility] Comment on above: Performed By: #### 2 085573 #### [facility] [address] [place] [address] Eosinophils/100 WBC (Bld) 1.1 % Normal 0.0-8.0 [facility] Comment on above: Performed By: #### 2 087149 #### [facility] [address] [place] [address] Erythrocyte distribution width (RBC) [Ratio] 15.8 % High 10.9-14.2 [facility] Comment on above: Performed By: #### 2 989148 #### [facility] [address] [place] [address] Hematocrit (Bld) [Volume fraction] 28.8 % Low 37.7-49.0 [facility] Comment on above: Performed By: #### 2 352161 #### [facility] [address] [place] [address] Hemoglobin (Bld) [Mass/Vol] 9.3 g/dL Low 13.5-17.5 [facility] Comment on above: Performed By: #### 2 [id number] #### [facility] [address] [place] [address] Lymphocytes (Bld) [#/Vol] 1.6 E9/L Normal 1.0-4.0 [facility] Comment on above: Performed By: #### 2 [id number] #### [facility] [address] [place] [address] Lymphocytes/100 WBC (Bld) 13.9 % Low 14.0-50.0 [facility] Comment on above: Performed By: #### 2 231122 #### [facility] [address] [place] [address] MCH (RBC) [Entitic mass] 27.6 pg Normal 27.0-34.0 [facility] Comment on above: Performed By: #### 2 934632 #### [facility] [address] [place] [address] MCHC (RBC) [Mass/Vol] 32.2 g/dL Normal 31.4-36.0 [facility] Comment on above: Performed By: #### 2 [id number] #### [facility] [address] [place] [address] MCV (RBC) [Entitic vol] 85.7 fL Normal 80.0-100.0 [facility] Comment on above: Performed By: #### 2 701836 #### [facility] [address] [place] [address] Monocytes (Bld) [#/Vol] 1.0 E9/L Normal 0.2-1.0 [facility] Comment on above: Performed By: #### 2 873857 #### [facility] [address] [place] [address] Neutrophils (Bld) [#/Vol] 8.9 E9/L High 2.0-7.5 [facility] Comment on above: Performed By: #### 2 267600 #### [facility] [address] [place] [address] Neutrophils/100 WBC (Bld) 76.1 % High 36.0-75.0 [facility] Comment on above: Performed By: #### 2 823720 #### [facility] [address] [place] [address] Platelet mean volume (Bld) [Entitic vol] 7.3 fL Normal 6.4-10.8 [facility] Comment on above: Performed By: #### 2 289746 #### [facility] [address] [place] [address] Platelets (Bld) [#/Vol] 357.0 E9/L Normal 150.0-500. 0 [facility] Comment on above: Performed By: #### 2 296672 #### [facility] [address] [place] [address] RBC (Bld) [#/Vol] 3.4 E12/L Low 4.3-5.9 [facility] Comment on above: Performed By: #### 2 790186 #### [facility] [address] [place] [address] WBC corrected for nucl RBC Auto (Bld) [#/Vol] 11.7 E9/L High 4.0-11.0 [facility] Comment on above: Performed By: #### 2 373161 #### [facility] [address] [place] [address] Basophils/100 WBC (Bld) 0.5 % Normal 0.0-2.0 [facility] Comment on above: Performed By: #### 2 434363 #### [facility] [address] [place] [address] Basophils/Leukocytes Auto (Bld) [Pure # fraction] 0.1 E9/L Normal 0.0-0.2 [facility] Comment on above: Performed By: #### 2 477277 #### [facility] [address] [place] [address] Eosinophils (Bld) [#/Vol] 0.2 E9/L Normal 0.0-0.5 [facility] Comment on above: Performed By: #### 2 577651 #### [facility] [address] [place] [address] Eosinophils/100 WBC (Bld) 1.3 % Normal 0.0-8.0 [facility] Comment on above: Performed By: #### 2 340606 #### [facility] [address] [place] [address] Erythrocyte distribution width (RBC) [Ratio] 15.9 % High 10.9-14.2 [facility] Comment on above: Performed By: #### 2 [id number] #### [facility] [address] [place] [address] Hematocrit (Bld) [Volume fraction] 28.2 % Low 37.7-49.0 [facility] Comment on above: Performed By: #### 2 299986 #### [facility] [address] [place] [address] Hemoglobin (Bld) [Mass/Vol] 9.3 g/dL Low 13.5-17.5 [facility] Comment on above: Performed By: #### 2 841380 #### [facility] [address] [place] [address] Lymphocytes (Bld) [#/Vol] 1.8 E9/L Normal 1.0-4.0 [facility] Comment on above: Performed By: #### 2 052969 #### [facility] [address] [place] [address] Lymphocytes/100 WBC (Bld) 15.8 % Normal 14.0-50.0 [facility] Comment on above: Performed By: #### 2 762828 #### [facility] [address] [place] [address] MCH (RBC) [Entitic mass] 27.9 pg Normal 27.0-34.0 [facility] Comment on above: Performed By: #### 2 174373 #### [facility] [address] [place] [address] MCHC (RBC) [Mass/Vol] 32.9 g/dL Normal 31.4-36.0 [facility] Comment on above: Performed By: #### 2 889993 #### [facility] [address] [place] [address] MCV (RBC) [Entitic vol] 84.9 fL Normal 80.0-100.0 [facility] Comment on above: Performed By: #### 2 203560 #### [facility] [address] [place] [address] Monocytes (Bld) [#/Vol] 1.0 E9/L Normal 0.2-1.0 [facility] Comment on above: Performed By: #### 2 412027 #### [facility] [address] [place] [address] Neutrophils (Bld) [#/Vol] 8.6 E9/L High 2.0-7.5 [facility] Comment on above: Performed By: #### 2 509789 #### [facility] [address] [place] [address] Neutrophils/100 WBC (Bld) 74.1 % Normal 36.0-75.0 [facility] Comment on above: Performed By: #### 2 827256 #### [facility] [address] [place] [address] Platelet 384.0 E9/L Normal 150.0-500. 0 [facility] Comment on above: Performed By: #### 2 008145 #### [facility] [address] [place] [address] Platelet mean volume (Bld) [Entitic vol] 7.3 fL Normal 6.4-10.8 [facility] Comment on above: Performed By: #### 2 196382 #### [facility] [address] [place] [address] RBC (Bld) [#/Vol] 3.3 E12/L Low 4.3-5.9 [facility] Comment on above: Performed By: #### 2 416490 #### [facility] [address] [place] [address] WBC corrected for nucl RBC Auto (Bld) [#/Vol] 11.6 E9/L High 4.0-11.0 [facility] Comment on above: Performed By: #### 2 541602 #### [facility] [address] [place] [address] Basophils/100 WBC (Bld) 0.5 % Normal 0.0-2.0 [facility] Comment on above: Performed By: #### 2 576771 #### [facility] [address] [place] [address] Basophils/Leukocytes Auto (Bld) [Pure # fraction] 0.0 E9/L Normal 0.0-0.2 [facility] Comment on above: Performed By: #### 2 114480 #### [facility] [address] [place] [address] Eosinophils (Bld) [#/Vol] 0.2 E9/L Normal 0.0-0.5 [facility] Comment on above: Performed By: #### 2 754340 #### [facility] [address] [place] [address] Eosinophils/100 WBC (Bld) 2.2 % Normal 0.0-8.0 [facility] Comment on above: Performed By: #### 2 788075 #### [facility] [address] [place] [address] Erythrocyte distribution width (RBC) [Ratio] 16.2 % High 10.9-14.2 [facility] Comment on above: Performed By: #### 2 278930 #### [facility] [address] [place] [address] Hematocrit (Bld) [Volume fraction] 26.3 % Low 37.7-49.0 [facility] Comment on above: Performed By: #### 2 682518 #### [facility] [address] [place] [address] Hemoglobin (Bld) [Mass/Vol] 8.9 g/dL Low 13.5-17.5 [facility] Comment on above: Performed By: #### 2 995537 #### [facility] [address] [place] [address] Lymphocytes (Bld) [#/Vol] 2.3 E9/L Normal 1.0-4.0 [facility] Comment on above: Performed By: #### 2 337309 #### [facility] [address] [place] [address] Lymphocytes/100 WBC (Bld) 21.8 % Normal 14.0-50.0 [facility] Comment on above: Performed By: #### 2 058153 #### [facility] [address] [place] [address] MCH (RBC) [Entitic mass] 28.6 pg Normal 27.0-34.0 [facility] Comment on above: Performed By: #### 2 265365 #### [facility] [address] [place] [address] MCHC (RBC) [Mass/Vol] 34.0 g/dL Normal 31.4-36.0 [facility] Comment on above: Performed By: #### 2 909967 #### [facility] [address] [place] [address] MCV (RBC) [Entitic vol] 84.3 fL Normal 80.0-100.0 [facility] Comment on above: Performed By: #### 2 281992 #### [facility] [address] [place] [address] Monocytes (Bld) [#/Vol] 0.9 E9/L Normal 0.2-1.0 [facility] Comment on above: Performed By: #### 2 606757 #### [facility] [address] [place] [address] Neutrophils (Bld) [#/Vol] 7.0 E9/L Normal 2.0-7.5 [facility] Comment on above: Performed By: #### 2 625431 #### [facility] [address] [place] [address] Neutrophils/100 WBC (Bld) 66.9 % Normal 36.0-75.0 [facility] Comment on above: Performed By: #### 2 259904 #### [facility] [address] [place] [address] Platelet 349.0 E9/L Normal 150.0-500. 0 [facility] Comment on above: Performed By: #### 2 562689 #### [facility] [address] [place] [address] Platelet mean volume (Bld) [Entitic vol] 7.2 fL Normal 6.4-10.8 [facility] Comment on above: Performed By: #### 2 034800 #### [facility] [address] [place] [address] RBC (Bld) [#/Vol] 3.1 E12/L Low 4.3-5.9 [facility] Comment on above: Performed By: #### 2 740838 #### [facility] [address] [place] [address] WBC corrected for nucl RBC Auto (Bld) [#/Vol] 10.4 E9/L Normal 4.0-11.0 [facility] Comment on above: Performed By: #### 2 319449 #### [facility] [address] [place] [address] CHEMISTRYOrdered By: Marlena RAYO User on 03-19-2024 Glucose [Mass/Vol] 253 mg/dL High 55 - 99 mg/dL [facility] POC Subsection Comment on above: Result Comment: Isabelle adames RN/ POC Device SN [id number] 1 Invalid Interpretation Code [facility] POC Subsection POC User ID [id number] 1 Invalid Interpretation Code [facility] POC Subsection POC Username JAMISON COTO Invalid Interpretation Code [facility] POC Subsection Glucose [Mass/Vol] 189 mg/dL High 55 - 99 mg/dL [facility] POC Subsection Comment on above: Result Comment: Isabelle adames RN/ POC Device SN [id number] 1 Invalid Interpretation Code [facility] POC Subsection POC User ID [id number] 1 Invalid Interpretation Code [facility] POC Subsection POC Username JAMISON COTO Invalid Interpretation Code [facility] POC Subsection Glucose [Mass/Vol] 202 mg/dL High 55 - 99 mg/dL [facility] POC Subsection Comment on above: Result Comment: Isabelle adames RN/ POC Device SN [id number] 1 Invalid Interpretation Code [facility] POC Subsection POC User ID [id number] 1 Invalid Interpretation Code [facility] POC Subsection [...] 03-09 Glucose [Mass/Vol] 253 mg/dL High 55-99 [facility] Comment on above: Result Comment: Isabelle adames RN/ Performed By: #### 2 [id number] ####[facility] [address] [place] [address] Glucose [Mass/Vol] 189 mg/dL High 55-99 [facility] Comment on above: Result Comment: Isabelle adames RN/ Performed By: #### 2 [id number] #### [facility] [address] [place] [address] Glucose [Mass/Vol] 202 mg/dL High 55-99 [facility] Comment on above: Result Comment: Isabelle MARES Performed By: #### 2 [id number] #### [facility] [address] [place] [address] HEMATOLOGYOrdered By: SYSTEM SYSTEM on 03-19-2024 Basophils/100 [...] 03-19-2024 Inpatient Clinical Summary Inpatient Clinical Summary [address] [address] Clinical Summary Person Information: Name: CHRISTIAN SHELBY Age: 48 Years : 1975 Sex: Male PCP: JOAN CARRILLO CNP Marital Status: Phone: [phone] Race: White Ethnicity: Non- or Language: Sri Lankan Visit Id: Visit Reason: Hernia; Abdominal pain; HERNIA IN LOWER STOMACH AREA Speciality: Acuity: Enc Type: Inpatient Med Service: Medical Arrival: 03/14/2024 17:37:38 Discharge: Dispo Type: Admitted as IP to this Hosp Address: [address] [place] [id number] Provider Notes: Diagnosis: 1:Ventral hernia Problems Active [...] Follow up: With: Address: When: trauma clinic [address] [facility] 3, second floor, [address] [place] [address] 03/25/2024 9:30 AM Comments: Call to schedule/confirm followup appointment for wound check and GHULAM drain removal Type Location Start Finish State Trauma Initial Follow Up (FT) FT.Trauma Clinic 03/25/2024 9:30 AM 03/25/2024 9:45 AM Confirmed Patient Education Information: Reddy - JacksonPratt Drainage Tube Care (CUSTOM); Open Hernia Repair, Adult, Care After, Lahn-nx-Ywba; Diet - Basic Carbohydrate Counting (Custom) Normal [facility] Inpatient Patient Summaryon 03-19-2024 Inpatient Patient [...] wound check and GHULAM drain removal Where: [address] [place] [address] 3, second floor, [address] [place] [address]- [phone] Someone Will Contact You Regarding These Appointments [...] Duration: 7 Days Pickup at [id number] 03/19 9 PM New oxycodone (oxyCODONE 5 mg Tab) 1 Tablets By Mouth Every 6 hours as needed for Pain 8-10 Ventral hernia Duration: 3 Days Pickup at [facility] #[id number] NEEDED FOR PAIN LEVEL 8-10 Unchanged atorvastatin [...] 03/20 9 AM Pharmacy Information [facility] #[id number]: [address] [place], [place] [id number] [phone] Test Results CBC BMP WBC: 11.7 E9/L High (03/19/24 13:30:00) Glucose Lvl: 197 mg/dL (03/19/24 03:18:00) RBC: 3.4 E12/L Low (03/19/24 13:30:00) BUN: 9 mg/dL (03/19/24 03:18:00) HGB: 9.3 gm/dL Low (03/19/24:30:00) Creatinine: 0.5 mg/dL (03/19/24:18:00) Hct: 28.8 % Low (03/19/24:30:00) BUN/Creat Ratio: [...] Smoker Type II diabetes mellitus Education Materials [place], [place] Neno Reddy MD, FACS DISCHARGE INSTRUCTIONS CARING FOR YOUR THOMAS-MICHAELS DRAINAGE TUBE You have been discharged with a Thomas-Michaels drainage tube. This tube will help healing and reduce the risk of infection by removing fluid through your incision. It is attached to a drain or c (more content not included)... Normal [facility] Inpatient Patient Summary Inpatient Patient Summary [address] [address] Patient Discharge Instructions PERSON INFORMATION Name: CHRISTIAN SHELBY Date of : 1975 Current Date: 03/19/2024 15:04:03 PHYSICIANS Admitting Physician: Brett MARTINEZ, Jason García Primary Care Physician: JOAN CARRILLO CNP PCP Phone Number: [phone] Comment: Discharge Diagnosis: 1:Ventral hernia Condition at [...] Follow up: With: Address: When: trauma clinic [address] [place] [address] 3, second floor, [address] [place] [address] 03/25/2024 9:30 AM Comments: Call to schedule/confirm [...] YOUR HOSPITAL STAY New Medications [id number], [address] [facility] [place] [id number], [phone] docusate (docusate sodium 100 mg Cap) 1 [...] Information: Other: Celeste Patton in [employer] Comment: PATIENT EDUCATION INFORMATION Instructions: Martin (more content not included)... [facility] Interdisciplinary Note - Alexander e Manageron 03-19-2024 Interdisciplinary Note - Marketing Communications Manager Interdisciplinary Note - Marketing Communications Manager CRM to room to discuss DC planning. Patient is awake, alert and oriented. Patient is from home with his spouse. She will transport [place]. Patient verified PCP, DME and insurance. Patient [...] but there is a DC order in Comptroller faxed DME order down to us that was signed and we did send that into the DME company, still pending the approval [facility] Comment on above: Result Comment: Elec tronically Signed By: Bhavna Mcnair\.br\Date and Time Signed: 03/19/24 15:19 EDT Interdisciplinary Note - Marketing Communications Manager Interdisciplinary Note - Marketing Communications Manager CRM to room to discuss DC [...] updates later this date from Trauma Team [facility] Comment on above: Result Comment: Elec [...] nutrition needs identified, full assessment not indicated. [facility] Comment on above: Result Comment: Elec tronically Signed By: Leoncio ROQUE, Sharee CHOWDARY\.br\Date and Time Signed: 03/19/24 09:37 EDT Magnesiumon 03-19-2024 Magnesium [Mass/Vol] 1.9 mg/dL Normal 1.3-2.4 [facility] Comment on above: Performed By: #### 2 [id number] #### [facility] [address] [place] [address] Phosphoruson 03-19-2024 Phosphate [Mass/Vol] 2.2 mg/dL Normal 1.9-4.6 [facility] Comment on above: Performed By: #### 2 [id number] #### [facility] [address] [place] [address] eGFRon 03-19-2024 eGFR 125 mL/min/1.73 m2 Normal >=59 [facility] Comment on above: Order Comment: Order added by Discern Expert. Performed By: #### 1 [id number] #### [facility] [address] [place] [address] CBC w/ Auto Diffon 4 Basophils/100 WBC (Bld) 0.7 % Normal 0.0-2.0 [facility] Comment on above: Performed By: #### 2 [id number] #### [facility] [address] [place] [address] Basophils/Leukocytes Auto (Bld) [Pure # fraction] 0.1 E9/L Normal 0.0-0.2 [facility] Comment on above: Performed By: #### 2 [id number] #### [facility] [address] [place] [address] Eosinophils (Bld) [#/Vol] 0.1 E9/L Normal 0.0-0.5 [facility] Comment on above: Performed By: #### 2 659047 #### [facility] [address] [place] [address] Eosinophils/100 WBC (Bld) 0.9 % Normal 0.0-8.0 [facility] Comment on above: Performed By: #### 2 405512 #### [facility] [address] [place] [address] Erythrocyte distribution width (RBC) [Ratio] 15.6 % High 10.9-14.2 [facility] Comment on above: Performed By: #### 2 [id number] #### [facility] [address] [place] [address] Hematocrit (Bld) [Volume fraction] 28.2 % Low 37.7-49.0 [facility] Comment on above: Performed By: #### 2 349501 #### [facility] [address] [place] [address] Hemoglobin (Bld) [Mass/Vol] 9.2 g/dL Low 13.5-17.5 [facility] Comment on above: Performed By: #### 2 390419 #### [facility] [address] [place] [address] Lymphocytes (Bld) [#/Vol] 1.8 E9/L Normal 1.0-4.0 [facility] Comment on above: Performed By: #### 2 [id number] #### [facility] [address] [place] [address] Lymphocytes/100 WBC (Bld) 14.3 % Normal 14.0-50.0 [facility] Comment on above: Performed By: #### 2 068172 #### [facility] [address] [place] [address] MCH (RBC) [Entitic mass] 27.9 pg Normal 27.0-34.0 [facility] Comment on above: Performed By: #### 2 345164 #### [facility] [address] [place] [address] MCHC (RBC) [Mass/Vol] 32.7 g/dL Normal 31.4-36.0 [facility] Comment on above: Performed By: #### 2 572128 #### [facility] [address] [place] [address] MCV (RBC) [Entitic vol] 85.2 fL Normal 80.0-100.0 [facility] Comment on above: Performed By: #### 2 [id number] #### [facility] [address] [place] [address] Monocytes (Bld) [#/Vol] 1.1 E9/L High 0.2-1.0 [facility] Comment on above: Performed By: #### 2 [id number] #### [facility] [address] [place] [address] Neutrophils (Bld) [#/Vol] 9.6 E9/L High 2.0-7.5 [facility] Comment on above: Performed By: #### 2 915416 #### [facility] [address] [place] [address] Neutrophils/100 WBC (Bld) 75.7 % High 36.0-75.0 [facility] Comment on above: Performed By: #### 2 752747 #### [facility] [address] [place] [address] Platelet mean volume (Bld) [Entitic vol] 7.6 fL Normal 6.4-10.8 [facility] Comment on above: Performed By: #### 2 022561 #### [facility] [address] [place] [address] Platelets (Bld) [#/Vol] 318.0 E9/L Normal 150.0-500. 0 [facility] Comment on above: Performed By: #### 2 594481 #### [facility] [address] [place] [address] RBC (Bld) [#/Vol] 3.3 E12/L Low 4.3-5.9 [facility] Comment on above: Performed By: #### 2 650922 #### [facility] [address] [place] [address] WBC corrected for nucl RBC Auto (Bld) [#/Vol] 12.7 E9/L High 4.0-11.0 [facility] Comment on above: Performed By: #### 2 523203 #### [facility] [address] [place] [address] Basophils/100 WBC (Bld) 0.5 % Normal 0.0-2.0 [facility] Comment on above: Performed By: #### 2 365032 #### [facility] [address] [place] [address] Basophils/Leukocytes Auto (Bld) [Pure # fraction] 0.1 E9/L Normal 0.0-0.2 [facility] Comment on above: Performed By: #### 2 937662 #### [facility] [address] [place] [address] Eosinophils (Bld) [#/Vol] 0.1 E9/L Normal 0.0-0.5 [facility] Comment on above: Performed By: #### 2 619429 #### [facility] [address] [place] [address] Eosinophils/100 WBC (Bld) 0.8 % Normal 0.0-8.0 [facility] Comment on above: Performed By: #### 2 925193 #### [facility] [address] [place] [address] Erythrocyte distribution width (RBC) [Ratio] 15.6 % High 10.9-14.2 [facility] Comment on above: Performed By: #### 2 525482 #### [facility] [address] [place] [address] Hematocrit (Bld) [Volume fraction] 27.5 % Low 37.7-49.0 [facility] Comment on above: Performed By: #### 2 240162 #### [facility] [address] [place] [address] Hemoglobin (Bld) [Mass/Vol] 9.0 g/dL Low 13.5-17.5 [facility] Comment on above: Performed By: #### 2 087954 #### [facility] [address] [place] [address] Lymphocytes (Bld) [#/Vol] 1.9 E9/L Normal 1.0-4.0 [facility] Comment on above: Performed By: #### 2 522571 #### [facility] [address] [place] [address] Lymphocytes/100 WBC (Bld) 15.7 % Normal 14.0-50.0 [facility] Comment on above: Performed By: #### 2 032526 #### [facility] [address] [place] [address] MCH (RBC) [Entitic mass] 27.8 pg Normal 27.0-34.0 [facility] Comment on above: Performed By: #### 2 630404 #### [facility] [address] [place] [address] MCHC (RBC) [Mass/Vol] 32.8 g/dL Normal 31.4-36.0 [facility] Comment on above: Performed By: #### 2 692052 #### [facility] [address] [place] [address] MCV (RBC) [Entitic vol] 84.8 fL Normal 80.0-100.0 [facility] Comment on above: Performed By: #### 2 186666 #### [facility] [address] [place] [address] Monocytes (Bld) [#/Vol] 1.0 E9/L Normal 0.2-1.0 [facility] Comment on above: Performed By: #### 2 205311 #### [facility] [address] [place] [address] Neutrophils (Bld) [#/Vol] 9.1 E9/L High 2.0-7.5 [facility] Comment on above: Performed By: #### 2 903234 #### [facility] [address] [place] [address] Neutrophils/100 WBC (Bld) 75.1 % High 36.0-75.0 [facility] Comment on above: Performed By: #### 2 666661 #### [facility] [address] [place] [address] Platelet mean volume (Bld) [Entitic vol] 7.5 fL Normal 6.4-10.8 [facility] Comment on above: Performed By: #### 2 778703 #### [facility] [address] [place] [address] Platelets (Bld) [#/Vol] 306.0 E9/L Normal 150.0-500. 0 [facility] Comment on above: Performed By: #### 2 908139 #### [facility] [address] [place] [address] RBC (Bld) [#/Vol] 3.2 E12/L Low 4.3-5.9 [facility] Comment on above: Performed By: #### 2 195944 #### [facility] [address] [place] [address] WBC corrected for nucl RBC Auto (Bld) [#/Vol] 12.1 E9/L High 4.0-11.0 [facility] Comment on above: Performed By: #### 2 389180 #### [facility] [address] [place] [address] CHEMISTRYOrdered By: SYSTEM SYSTEM on 03-18-2024 Anion [...] 03-09 Glucose [Mass/Vol] 275 mg/dL High 55-99 [facility] Comment on above: Result Comment: Isabelle adames RN/ Performed By: #### 2 [id number] #### [facility] [address] [place] [address] Glucose [Mass/Vol] 231 mg/dL High 55-99 [facility] Comment on above: Result Comment: Tisha velásquez Meter Performed By: #### 2 [id number] #### [facility] [address] [place] [address] MICRO OTHER TESTSOrdered By: Natalia Burns on 03-18-2024 Occult blood panel (Stl) Positive *ABN* (03/18/24 4:01 PM) Invalid Interpretation Code Negative [facility] Man Sero Stl Oclt Bldon 03-18-2024 Occult blood panel (Stl) Positive Abnormal Negative [facility] Comment on above: Performed By: #### 2 [id number] #### [facility] [address] [place] [address] BMPon 03-17-2024 Anion gap [Moles/Vol] 12 mmol/L Normal 6-16 [facility] Comment on above: Performed By: #### 2 471845 #### [facility] [address] [place] [address] Calcium [Mass/Vol] 7.8 mg/dL Low 8.9-11.1 [facility] Comment on above: Performed By: #### 2 998138 #### [facility] [address] [place] [address] Chloride [Moles/Vol] 103 mmol/L Normal 101-111 [facility] Comment on above: Performed By: #### 2 441733 #### [facility] [address] [place] [address] CO2 [Moles/Vol] 25 mmol/L Normal 21-31 [facility] Comment on above: Performed By: #### 2 484696 #### [facility] [address] [place] [address] Creatinine [Mass/Vol] 0.7 mg/dL Normal 0.5-1.3 [facility] Comment on above: Performed By: #### 2 939989 #### [facility] [address] [place] [address] Glucose [Mass/Vol] 240 mg/dL High 55-199 [facility] Comment on above: Performed By: #### 2 398242 #### [facility] [address] [place] [address] Potassium [Moles/Vol] 3.8 mmol/L Normal 3.5-5.3 [facility] Comment on above: Performed By: #### 2 185115 #### [facility] [address] [place] [address] Sodium [Moles/Vol] 136 mmol/L Normal 135-145 [facility] Comment on above: Performed By: #### 2 051751 #### [facility] [address] [place] [address] Urea nitrogen [Mass/Vol] 16 mg/dL Normal 5-21 [facility] Comment on above: Performed By: #### 2 556426 #### [facility] [address] [place] [address] Urea nitrogen/Creatinine [Mass ratio] 23 No Units High 10-20 [facility] Comment on above: Performed By: #### 2 515962 #### [facility] [address] [place] [address] CBC w/ Auto Diffon 4 Basophils/100 WBC (Bld) 0.2 % Normal 0.0-2.0 [facility] Comment on above: Performed By: #### 2 328224 #### [facility] [address] [place] [address] Basophils/Leukocytes Auto (Bld) [Pure # fraction] 0.0 E9/L Normal 0.0-0.2 [facility] Comment on above: Performed By: #### 2 810212 #### [facility] [address] [place] [address] Eosinophils (Bld) [#/Vol] 0.0 E9/L Normal 0.0-0.5 [facility] Comment on above: Performed By: #### 2 188168 #### [facility] [address] [place] [address] Eosinophils/100 WBC (Bld) 0.1 % Normal 0.0-8.0 [facility] Comment on above: Performed By: #### 2 005209 #### [facility] [address] [place] [address] Erythrocyte distribution width (RBC) [Ratio] 16.1 % High 10.9-14.2 [facility] Comment on above: Performed By: #### 2 668426 #### [facility] [address] [place] [address] Hematocrit (Bld) [Volume fraction] 30.6 % Low 37.7-49.0 [facility] Comment on above: Performed By: #### 2 152151 #### [facility] [address] [place] [address] Hemoglobin (Bld) [Mass/Vol] 10.1 g/dL Low 13.5-17.5 [facility] Comment on above: Performed By: #### 2 313217 #### [facility] [address] [place] [address] Lymphocytes (Bld) [#/Vol] 1.3 E9/L Normal 1.0-4.0 [facility] Comment on above: Performed By: #### 2 834996 #### [facility] [address] [place] [address] Lymphocytes/100 WBC (Bld) 8.1 % Low 14.0-50.0 [facility] Comment on above: Performed By: #### 2 584887 #### [facility] [address] [place] [address] MCH (RBC) [Entitic mass] 27.8 pg Normal 27.0-34.0 [facility] Comment on above: Performed By: #### 2 624592 #### [facility] [address] [place] [address] MCHC (RBC) [Mass/Vol] 32.8 g/dL Normal 31.4-36.0 [facility] Comment on above: Performed By: #### 2 261077 #### [facility] [address] [place] [address] MCV (RBC) [Entitic vol] 84.7 fL Normal 80.0-100.0 [facility] Comment on above: Performed By: #### 2 651467 #### [facility] [address] [place] [address] Monocytes (Bld) [#/Vol] 1.6 E9/L High 0.2-1.0 [facility] Comment on above: Performed By: #### 2 612927 #### [facility] [address] [place] [address] Neutrophils (Bld) [#/Vol] 12.9 E9/L High 2.0-7.5 [facility] Comment on above: Performed By: #### 2 390270 #### [facility] [address] [place] [address] Neutrophils/100 WBC (Bld) 81.8 % High 36.0-75.0 [facility] Comment on above: Performed By: #### 2 817503 #### [facility] [address] [place] [address] Platelet mean volume (Bld) [Entitic vol] 7.4 fL Normal 6.4-10.8 [facility] Comment on above: Performed By: #### 2 939809 #### [facility] [address] [place] [address] Platelets (Bld) [#/Vol] 290.0 E9/L Normal 150.0-500. 0 [facility] Comment on above: Performed By: #### 2 043099 #### [facility] [address] [place] [address] RBC (Bld) [#/Vol] 3.6 E12/L Low 4.3-5.9 [facility] Comment on above: Performed By: #### 2 741159 #### [facility] [address] [place] [address] WBC corrected for nucl RBC Auto (Bld) [#/Vol] 15.8 E9/L High 4.0-11.0 [facility] Comment on above: Performed By: #### 2 479013 #### [facility] [address] [place] [address] CHEMISTRYOrdered By: SYSTEM SYSTEM on 03-17-2024 Anion [...] POCon Glucose [Mass/Vol] 193 mg/dL High 55-99 [facility] Comment on above: Result Comment: Isabelle adames RN/ Performed By: #### 2 [id number] #### [facility] [address] [place] [address] Inpatient Clinical Summaryon 03-17-2024 Inpatient Clinical Summary Inpatient Clinical Summary [address] [address] Clinical Summary Person Information: Name: CHRISTIAN SHELBY Age: 48 Years : 1975 Sex: Male PCP: JOAN CARRILLO CNP Marital Status: Phone: [phone] Race: White Ethnicity: Non- or Language: Sri Lankan Visit Id: Visit Reason: Hernia; Abdominal pain; HERNIA IN LOWER STOMACH AREA Speciality: Acuity: Enc Type: Inpatient Med Service: Medical Arrival: 03/14/2024 17:37:38 Discharge: Dispo Type: Admitted as IP to this Hosp Address: [address] [place] [id number] Provider Notes: Diagnosis: 1:Ventral hernia Problems Active [...] Diet - Basic Carbohydrate Counting (Custom) Normal [facility] Inpatient Patient Summaryon 03-17-2024 Inpatient Patient Summary Inpatient Patient Summary [place] [id number] Patient Discharge Instructions PERSON INFORMATION Name: CHRISTIAN SHELBY Date of : 1975 Current Date: 03/17/2024 07:59:09 PHYSICIANS Admitting Physician: Jason West MD Primary Care Physician: JOAN CARRILLO CNP PCP Phone Number: [phone] Comment: Discharge Diagnosis: 1:Ventral hernia Condition at [...] hot dog bun (1 ounce) 3/4 cup bskep-so-ucm cereal 1/2 cup cooked cereal 1 cup broth-based soup 4-6 small aircraft servicer (more content not included)... Normal [facility] Interdisciplinary Note - Alexander e Manageron 03-17-2024 Interdisciplinary Note - Marketing Communications Manager Interdisciplinary Note - Marketing Communications Manager CRM to room to discuss DC [...] Trauma is a goal of Saturday Normal [facility] Comment on above: Result Comment: Elec tronically Signed By: Bhavna Mcnair\.br\Date and Time Signed: 03/17/24 08:45 EDT Magnesiumon 03-17-2024 Magnesium [Mass/Vol] 2.2 mg/dL Normal 1.3-2.4 Rene thompson [facility] Comment on above: Performed By: #### 2 [id number] #### [facility] [address] [place] [address] Main OR Intraoperative Recor don 03-17-2024 Main OR Intraoperative Record Main OR Intraoperative Record IntraOp Document Type FT Summary Primary Physician: Jason West MD Finalized Date/Time: 03/17/24 10:26:36 Pt. Name: CHRISTIAN SHELBY/Sex: 1975 Male Med Rec #: [id number] Physician: Jason West MD Financial #: [id number] Pt. Type: I Room/Bed: N212/01 Admit/Disch: 03/14/24 17:37:38 - Institution: Case Times [...] Role Performed Anesthesiologist of Surgeon - Primary Mineralogy Professor - Primary Record Time In 03/15/24 09:58:00 [...] Attendee Abhinav Bailey, Tanmay Ingram Role Performed CHAIRLIFT OPERATOR Scrub - Primary Mechanical Expert Time In 03/15/24 09:58:00 03/15/24 09:58:00 03/15/24 [...] lower quadrant of abdomen Last Modified By: Petra WILHELM, Rosaura Peter 03/15/24 10:49:54 Post-Care Text: The patient is free from signs and symptoms of injury caused by extraneous objects Patient Positioning FT Pre-Care Te (more content not included)... Normal [facility] eGFRon 03-17-2024 eGFR 113 mL/min/1.73 m2 Normal >=59 [facility] Comment on above: Order Comment: Order added by Discern Expert. Performed By: #### 1 [id number] #### [facility] [address] [place] [address] BMPon 03-16-2024 Anion gap [Moles/Vol] 14 mmol/L Normal 6-16 [facility] Comment on above: Performed By: #### 2 835365 #### [facility] [address] [place] [address] Calcium [Mass/Vol] 7.7 mg/dL Low 8.9-11.1 [facility] Comment on above: Performed By: #### 2 981423 #### [facility] [address] [place] [address] Chloride [Moles/Vol] 105 mmol/L Normal 101-111 [facility] Comment on above: Performed By: #### 2 996071 #### [facility] [address] [place] [address] CO2 [Moles/Vol] 22 mmol/L Normal 21-31 [facility] [facility] Comment on above: Performed By: #### 2 [id number] #### [facility] [address] [place] [address] Creatinine [Mass/Vol] 0.8 mg/dL Normal 0.5-1.3 [facility] Comment on above: Performed By: #### 2 [id number] #### [facility] [address] [place] [address] Glucose [Mass/Vol] 279 mg/dL High 55-199 [facility] Comment on above: Performed By: #### 2 [id number] #### [facility] [address] [place] [address] Potassium [Moles/Vol] 4.0 mmol/L Normal 3.5-5.3 [facility] Comment on above: Performed By: #### 2 [id number] #### [facility] [address] [place] [address] Sodium [Moles/Vol] 137 mmol/L Normal 135-145 [facility] Comment on above: Performed By: #### 2 [id number] #### [facility] [address] [place] [address] Urea nitrogen [Mass/Vol] 17 mg/dL Normal 5-21 [facility] Comment on above: Performed By: #### 2 [id number] #### [facility] [address] [place] [address] Urea nitrogen/Creatinine [Mass ratio] 21 No Units High 10-20 [facility] Comment on above: Performed By: #### 2 [id number] #### [facility] [address] [place] [address] CBC w/ Auto Diffon 4 Basophils/100 WBC (Bld) 0.2 % Normal 0.0-2.0 [facility] Comment on above: Performed By: #### 2 [id number] #### [facility] [address] [place] [address] Basophils/Leukocytes Auto (Bld) [Pure # fraction] 0.0 E9/L Normal 0.0-0.2 [facility] Comment on above: Performed By: #### 2 [id number] #### [facility] [address] [place] [address] Eosinophils (Bld) [#/Vol] 0.0 E9/L Normal 0.0-0.5 [facility] Comment on above: Performed By: #### 2 [id number] #### [facility] [address] [place] [address] Eosinophils/100 WBC (Bld) 0.0 % Normal 0.0-8.0 [facility] Comment on above: Performed By: #### 2 [id number] #### [facility] [address] [place] [address] Erythrocyte distribution width (RBC) [Ratio] 16.3 % High 10.9-14.2 [facility] Comment on above: Performed By: #### 2 [id number] #### [facility] [address] [place] [address] Hematocrit (Bld) [Volume fraction] 35.3 % Low 37.7-49.0 [facility] Comment on above: Performed By: #### 2 [id number] #### [facility] [address] [place] [address] Hemoglobin (Bld) [Mass/Vol] 11.7 g/dL Low 13.5-17.5 [facility] Comment on above: Performed By: #### 2 [id number] #### [facility] [address] [place] [address] Lymphocytes (Bld) [#/Vol] 1.0 E9/L Normal 1.0-4.0 [facility] Comment on above: Performed By: #### 2 [id number] #### [facility] [address] [place] [address] Lymphocytes/100 WBC (Bld) 6.3 % Low 14.0-50.0 [facility] Comment on above: Performed By: #### 2 [id number] #### [facility] [address] [place] [address] MCH (RBC) [Entitic mass] 27.9 pg Normal 27.0-34.0 [facility] Comment on above: Performed By: #### 2 [id number] #### [facility] [address] [place] [address] MCHC (RBC) [Mass/Vol] 33.1 g/dL Normal 31.4-36.0 [facility] Comment on above: Performed By: #### 2 [id number] #### [facility] [address] [place] [address] MCV (RBC) [Entitic vol] 84.4 fL Normal 80.0-100.0 [facility] Comment on above: Performed By: #### 2 [id number] #### [facility] [address] [place] [address] Monocytes (Bld) [#/Vol] 1.9 E9/L High 0.2-1.0 [facility] Comment on above: Performed By: #### 2 [id number] #### [facility] [address] [place] [address] Neutrophils (Bld) [#/Vol] 13.5 E9/L High 2.0-7.5 [facility] Comment on above: Performed By: #### 2 [id number] #### [facility] [address] [place] [address] Neutrophils/100 WBC (Bld) 82.1 % High 36.0-75.0 [facility] Comment on above: Performed By: #### 2 [id number] #### [facility] [address] [place] [address] Platelet 340.0 E9/L Normal 150.0-500. 0 [facility] Comment on above: Performed By: #### 2 [id number] #### [facility] [address] [place] [address] Platelet mean volume (Bld) [Entitic vol] 7.1 fL Normal 6.4-10.8 [facility] Comment on above: Performed By: #### 2 650601 #### [facility] [address] [place] [address] RBC (Bld) [#/Vol] 4.2 E12/L Low 4.3-5.9 [facility] Comment on above: Performed By: #### 2 263572 #### [facility] [address] [place] [address] WBC corrected for nucl RBC Auto (Bld) [#/Vol] 16.5 E9/L High 4.0-11.0 [facility] Comment on above: Result Comment: Ekaterina pheral smear review performed. Performed By: #### 2 [id number] #### [facility] [address] [place] [address] Capillary Glucose POCon Glucose [Mass/Vol] 224 mg/dL High 55-99 [facility] Comment on above: Result Comment: Isabelle MARES Performed By: #### 2 [id number] #### [facility] [address] [place] [address] Glucose [Mass/Vol] 242 mg/dL High 55-99 [facility] Comment on above: Result Comment: Isabelle adames RN/ Performed By: #### 2 [id number] #### [facility] [address] [place] [address] Glucose [Mass/Vol] 253 mg/dL High 55-99 [facility] Comment on above: Result Comment: Isabelle MARES Performed By: #### 2 [id number] #### [facility] [address] [place] [address] Glucose [Mass/Vol] 261 mg/dL High 55-99 [facility] Comment on above: Result Comment: Isabelle MARES Performed By: #### 2 [id number] #### [facility] [address] [place] [address] ED Note-Physicianon 03-16-20 ED Note-Physician ED Note-Physician [...] Diagnostic Results No qualifying data available. Normal [facility] Comment on above: Result Comment: Elec tronically Signed By: Baljit Moyer PA-C\.br\Date and Time Signed: 03/15/24 08:03 EDT\.br\Electronically Co-Signed By: Demarco Ferreira DO\.br\Date and Time Co-Signed: 03/16/24 07:04 EDT [id number] 03-16-2024 HbA1c (Bld) [Mass fraction] 9.4 % High <=5.9 [facility] Comment on above: Performed By: #### 7 [id number] #### [facility] [address] [place] [address] Inpatient Clinical Summaryon 03-16-2024 Inpatient Clinical Summary Inpatient Clinical Summary [address] [address] Clinical Summary Person Information: Name: CHRISTIAN SHELBY Age: 48 Years : 1975 Sex: Male PCP: JOAN CARRILLO CNP Marital Status: Phone: [phone] Race: White Ethnicity: Non- or Language: Sri [place]ankan Visit Id: Visit Reason: Hernia; Abdominal pain; HERNIA IN LOWER STOMACH AREA Speciality: Acuity: Enc Type: Inpatient Med Service: Medical Arrival: 03/14/2024 17:37:38 Discharge: Dispo Type: Admitted as IP to this Hosp Address: [address] [place] [id number] Provider Notes: Diagnosis: 1:Ventral hernia Problems Active [...] Physician: Follow up: Patient Education Information: Normal [facility] Inpatient Patient Summaryon 03-16-2024 Inpatient Patient Summary Inpatient Patient Summary [address] [address] Patient Discharge Instructions PERSON INFORMATION Name: CHRISTIAN SHELBY Date of : 1975 Current Date: 03/16/2024 15:09:18 PHYSICIANS Admitting Physician: Brett MARTINEZ, Jason García Primary Care Physician: JOAN CARRILLO CNP PCP Phone Number: [phone] Comment: Discharge Diagnosis: 1:Ventral hernia Condition at [...] Leaflets: You may receive a survey from [employer] asking you to rate your care experience. Your feedback is important and will help us understand what we do well and how we can improve the quality of care we provide to you, your loved ones and our community. It?s an honor to serve you. Thank you for choosing [facility] Normal [facility] Interdisciplinary Note - Alexander e Manageron 03-16-2024 Interdisciplinary Note - Marketing Communications Manager Interdisciplinary Note - Marketing Communications Manager CRM to room to discuss DC planning. Patient is awake, alert and oriented. Patient is from home with his spouse. She will transport at [place]. Patient verified PCP, DME and insurance. Patient [...] DC Saturday if he progresses well Normal [facility] Comment on above: Result Comment: Elec tronically Signed By: Bhavna Mcnair\.br\Date and Time Signed: 03/16/24 12:26 EDT Interdisciplinary Note - Marketing Communications Manager Interdisciplinary Note - Marketing Communications Manager CRM to room to discuss DC [...] updated. CRM following DC date TBD Normal [facility] Comment on above: Result Comment: Elec tronically Signed By: Bhavna Mcnair\.br\Date and Time Signed: 03/16/24 08:32 EDT Magnesiumon 03-16-2024 Magnesium [Mass/Vol] 1.8 mg/dL Normal 1.3-2.4 [facility] Comment on above: Performed By: #### 2 [id number] #### [facility] [address] [place] [address] Phosphoruson 03-16-2024 Phosphate [Mass/Vol] 3.7 mg/dL Normal 1.9-4.6 [facility] Comment on above: Performed By: #### 2 [id number] #### [facility] [address] [place] [address] eGFRon 03-16-2024 eGFR 109 mL/min/1.73 m2 Normal >=59 [facility] Comment on above: Order Comment: Order added by Discern Expert. Performed By: #### 1 [id number] #### [facility] [address] [place] [address] ABO/Rhon 03-15-2024 ABO/Rh Positive Invalid Interpretation Code [facility] Comment on above: Performed By: #### 2 [id number] #### [facility] [address] [place] [address] ABO/Rh History Checkon 03-15 ABO/Rh History Check Type verified by second s Normal [facility] Comment on above: Performed By: #### 1 [id number] #### [facility] [address] [place] [address] ABO/Rh Retypeon 03-15-2024 ABO/Rh Retype Interp Positive Invalid Interpretation Code [facility] Comment on above: Performed By: #### 1 [id number] #### [facility] [address] [place] [address] ABSCon 03-15-2024 ABSC Gel Interp Negative Normal [facility] Comment on above: Performed By: #### 1 [id number] #### [facility] [address] [place] [address] BLOOD BANKOrdered By: Tabatha Ren on 03-15-2024 ABO/Rh Interp Positive Invalid Interpretation Code [facility] BB Subsection ABSC Gel Interp Negative (03/15/24 6:28 AM) Normal [facility] BB Subsection BMPon 03-15-2024 Anion gap [Moles/Vol] 14 mmol/L Normal 6-16 [facility] Comment on above: Performed By: #### 2 [id number] #### [facility] [address] [place] [address] Calcium [Mass/Vol] 8.3 mg/dL Low 8.9-11.1 [facility] Comment on above: Performed By: #### 2 596074 #### [facility] [address] [place] [address] Chloride [Moles/Vol] 103 mmol/L Normal 101-111 [facility] Comment on above: Performed By: #### 2 290577 #### [facility] [address] [place] [address] CO2 [Moles/Vol] 22 mmol/L Normal 21-31 [facility] Comment on above: Performed By: #### 2 811786 #### [facility] [address] [place] [address] Creatinine [Mass/Vol] 0.6 mg/dL Normal 0.5-1.3 [facility] Comment on above: Performed By: #### 2 175895 #### [facility] [address] [place] [address] Glucose [Mass/Vol] 215 mg/dL High 55-199 [facility] Comment on above: Performed By: #### 2 231573 #### [facility] [address] [place] [address] Potassium [Moles/Vol] 4.0 mmol/L Normal 3.5-5.3 [facility] Comment on above: Performed By: #### 2 962932 #### [facility] [address] [place] [address] Sodium [Moles/Vol] 135 mmol/L Normal 135-145 [facility] Comment on above: Performed By: #### 2 796089 #### [facility] [address] [place] [address] Urea nitrogen [Mass/Vol] 12 mg/dL Normal 5-21 [facility] Comment on above: Performed By: #### 2 616577 #### [facility] [address] [place] [address] Urea nitrogen/Creatinine [Mass ratio] 20 No Units Normal 10-20 [facility] Comment on above: Performed By: #### 2 225864 #### [facility] [address] [place] [address] Blood Bank ID#on 03-15-2024 BBID# [id number] Invalid Interpretation Code [facility] Comment on above: Performed By: #### 1 [id number] #### [facility] [address] [place] [address] CBC w/ Auto Diffon 4 Basophils/100 WBC (Bld) 0.2 % Normal 0.0-2.0 [facility] Comment on above: Performed By: #### 2 943129 #### [facility] [address] [place] [address] Basophils/Leukocytes Auto (Bld) [Pure # fraction] 0.0 E9/L Normal 0.0-0.2 [facility] Comment on above: Performed By: #### 2 [id number] #### [facility] [address] [place] [address] Eosinophils (Bld) [#/Vol] 0.0 E9/L Normal 0.0-0.5 [facility] Comment on above: Performed By: #### 2 438792 #### [facility] [address] [place] [address] Eosinophils/100 WBC (Bld) 0.2 % Normal 0.0-8.0 [facility] Comment on above: Performed By: #### 2 [id number] #### [facility] [address] [place] [address] Erythrocyte distribution width (RBC) [Ratio] 16.1 % High 10.9-14.2 [facility] Comment on above: Performed By: #### 2 682920 #### [facility] [address] [place] [address] Hematocrit (Bld) [Volume fraction] 41.8 % Normal 37.7-49.0 [facility] Comment on above: Performed By: #### 2 715940 #### [facility] [address] [place] [address] Hemoglobin (Bld) [Mass/Vol] 14.0 g/dL Normal 13.5-17.5 [facility] Comment on above: Performed By: #### 2 578502 #### [facility] [address] [place] [address] Lymphocytes (Bld) [#/Vol] 1.5 E9/L Normal 1.0-4.0 [facility] Comment on above: Performed By: #### 2 632479 #### [facility] [address] [place] [address] Lymphocytes/100 WBC (Bld) 12.2 % Low 14.0-50.0 [facility] Comment on above: Performed By: #### 2 471345 #### [facility] [address] [place] [address] MCH (RBC) [Entitic mass] 27.9 pg Normal 27.0-34.0 [facility] Comment on above: Performed By: #### 2 596812 #### [facility] [address] [place] [address] MCHC (RBC) [Mass/Vol] 33.5 g/dL Normal 31.4-36.0 [facility] Comment on above: Performed By: #### 2 [id number] #### [facility] [address] [place] [address] MCV (RBC) [Entitic vol] 83.2 fL Normal 80.0-100.0 [facility] Comment on above: Performed By: #### 2 437653 #### [facility] [address] [place] [address] Monocytes (Bld) [#/Vol] 0.8 E9/L Normal 0.2-1.0 [facility] Comment on above: Performed By: #### 2 [id number] #### [facility] [address] [place] [address] Neutrophils (Bld) [#/Vol] 10.3 E9/L High 2.0-7.5 [facility] Comment on above: Performed By: #### 2 387017 #### [facility] [address] [place] [address] Neutrophils/100 WBC (Bld) 81.2 % High 36.0-75.0 [facility] Comment on above: Performed By: #### 2 077385 #### [facility] [address] [place] [address] Platelet 312.0 E9/L Normal 150.0-500. 0 [facility] Comment on above: Performed By: #### 2 098336 #### [facility] [address] [place] [address] Platelet mean volume (Bld) [Entitic vol] 7.0 fL Normal 6.4-10.8 [facility] Comment on above: Performed By: #### 2 582768 #### [facility] [address] [place] [address] RBC (Bld) [#/Vol] 5.0 E12/L Normal 4.3-5.9 [facility] Comment on above: Performed By: #### 2 [id number] #### [facility] [address] [place] [address] WBC corrected for nucl RBC Auto (Bld) [#/Vol] 12.7 E9/L High 4.0-11.0 [facility] Comment on above: Performed By: #### 2 449940 #### [facility] [address] [place] [address] CHEMISTRYOrdered By: Sara perez on 03-15-2024 HbA1c (Bld) [Mass fraction] 9.4 % High <=5.9% [facility] ChemAutoSS CHEMISTRYOrdered By: SYSTEM SYSTEM on 03-15-2024 Lactic Acid Lvl 0.8 mmol/L Normal 0.5 - 2.2 mmol/L Remisol Chem Capillary Glucose POCon Glucose [Mass/Vol] 254 mg/dL High 55-99 [facility] Comment on above: Result Comment: Isabelle MARES Performed By: #### 2 [id number] #### [facility] [address] [place] [address] Glucose [Mass/Vol] 243 mg/dL High 55-99 [facility] Comment on above: Result Comment: Isabelle MARES Performed By: #### 2 [id number] #### [facility] [address] [place] [address] Glucose [Mass/Vol] 261 mg/dL High 55-99 [facility] Comment on above: Performed By: #### 2 [id number] #### [facility] [address] [place] [address] Glucose [Mass/Vol] 218 mg/dL High 55-99 [facility] Comment on above: Result Comment: Isabelle MARES Performed By: #### 2 [id number] #### [facility] [address] [place] [address] Lactic Acidon 03-15-2024 Lactic Acid Lvl 0.8 mmol/L Normal 0.5-2.2 [facility] Comment on above: Performed By: #### 2 [id number] #### [facility] [address] [place] [address] Magnesiumon 03-15-2024 Magnesium [Mass/Vol] 1.8 mg/dL Normal 1.3-2.4 [facility] Comment on above: Performed By: #### 2 [id number] #### [facility] [address] [place] [address] Main OR Intraoperative Recor don 03-15-2024 Main OR Intraoperative Record Main OR Intraoperative Record IntraOp Document Type FT Summary Primary Physician: Jason West MD Finalized Date/Time: 03/15/24 14:06:28 Pt. Name: CHRISTIAN SHELBY D.O.B./Sex: 1975 Male Med Rec #: [id number] Physician: Salvatore WOOTEN DO Financial #: [id number] Pt. Type: I Room/Bed: [place] [address] Admit/Disch: 03/14/24 17:37:38 - Institution: Case Times FT Entry 1 Patient Times In Room 03/15/24 09:58:00 Out Room 03/15/24 13:44:00 Procedure Times Start 03/15/24 10:33:00 Stop 03/15/24 13:36:00 Anesthesia Times Start 03/15/24 09:58:00 Stop 03/15/24 13:44:00 Last Modified By: Petra WILHELM, Rosaura Peter 03/15/24 14:04:21 Case Attendance FT Entry 1 Entry 2 Entry 3 Case Attendee Roverto Sharpe DO, Ambroiso West MD, Jason Lambert RN, Rosaura Peter Role Performed Anesthesiologist of Surgeon - Primary Mineralogy Professor - Primary Record Time In 03/15/24 09:58:00 [...] Bailey Madison A Hargrove, Bryce Role Performed CHAIRLIFT OPERATOR Scrub - Primary Mechanical Expert Time In 03/15/24 09:58:00 03/15/24 09:58:00 03/15/24 [...] Time Out Brett MARTINEZ, Jason García, Roverto Daley Jr, DO, Petra Breen RN, Leo Trejo Alejandro, [place], [...] additional precautions (more content not included)... Normal [facility] Main OR PACU I Recordon Main OR PACU I Record Main OR PACU I Record PACU Phase I Document Type FT Summary Primary Physician: Jason West MD Finalized Date/Time: 03/15/24 15:10:31 Pt. Name: CHRISTIAN SHELBY Jayde Mattson/Sex: 1975 Male Med Rec #: [id number] Physician: Salvatore WOOTEN DO Financial #: [id number] Pt. Type: I Room/Bed: [facility]/ Admit/Disch: 03/14/24 17:37:38 - Institution: Case Times [...] By: Zulma Cabezas RN 03/15/24 15:10 Normal [facility] Main OR Preoperative Recordo n 03-15-2024 Main OR Preoperative Record Main OR Preoperative Record Holding Area Document Type FT Summary Primary Physician: Jason West MD Finalized Date/Time: 03/15/24 10:43:16 Pt. Name: ELDON SHELBYJUDE Donohue /Sex: 1975 Male Med Rec #: [id number] Physician: Salvatore WOOTEN DO Financial #: [id number] Pt. Type: I Room/Bed: [place] [address] Admit/Disch: 03/14/24 17:37:38 - Institution: Case Times [...] By: Rosaura Lambert RN 03/15/24 10:43 Normal [facility] Operative Reporton 4 Operative Report Operative Report [facility] Care Surgery Operative Report Date of Service: 03/15/24 Preop Diagnosis: Incarcerated ventral hernia Postop Diagnosis: Same Procedure: Exploratory laparotomy, lysis of adhesions, resection of hernia sac, primary repair of ventral hernia, bilateral TAP blocks Surgeon:Jason West MD Cylinder Die Machine Operator: Abhinav Bailey RNFA Anesthesia: General endotracheal EBL: [...] parts of the procedure. Jason West MD [facility] Comment on above: Result Comment: Elec tronically Signed By: Jason West MD X\.br\Date and Time Signed: 03/15/24 23:52 EDT Operative [...] - Discontinue Craft catheter tomorrow - Dilaudid AIRDOX FITTER for pain control Jason West MD [facility] Comment on above: Result Comment: Elec tronically Signed By: Brett MARTINEZ, Jason X\.br\Date and Time Signed: 03/15/24 14:35 EDT Phosphoruson 03-15-2024 Phosphate [Mass/Vol] 2.6 mg/dL Normal 1.9-4.[address] [facility] Comment on above: Performed By: #### 2 [id number] #### [facility] [address] [place] [address] URINALYSISOrdered By: SYSTEM SYSTEM on 03-15-2024 Bilirubin Ql (U) Negative Normal Negativemg /dL FT UA Auto SS Clarity (U) Clear (03/15/24 10:18 AM) Normal Clear [facility] UA Auto SS Color (U) Light-Yellow 1 (03/15/24 10:18 AM) Normal Yellow [facility] UA Auto SS Comment on above: Interpretive Data: M icroscopic readings are only performed on those samples that meet specific criteria set forth by [facility]. Glucose Ql (U) 4+ mg/dL [...] Trace mg/dL Invalid Interpretation Code Negativemg /dL [facility] UA Auto SS Specific gravity (U) [Rel density] 1.038 *NA* (03/15/24 10:18 AM) Invalid Interpretation Code 1.005 - 1.030 [facility] UA Auto SS Urobilinogen (U) [Mass/Vol] Negative Normal Negativemg /dL [facility] UA Auto SS URINALYSISOrdered By: Rosaura Lambert on 03-15-2024 UA Spec Desc Craft (03/15/24 10:18 AM) Normal [facility] UA Auto SS Urinalysis with Microon 07-0 Bilirubin Ql (U) Negative Normal Negative [facility] Comment on above: Performed By: #### 4 [id number] #### [facility] [address] [place] [address] Clarity (U) Clear Normal Clear [facility] Comment on above: Performed By: #### 4 [id number] #### [facility] [address] [place] [address] Color (U) Light-Yellow Normal Yellow [facility] Comment on above: Result Comment: Micr oscopic readings are only performed on those samples that meet specific criteria set forth by [facility]. Performed By: #### 4 [id number] #### [facility] [address] [place] [address] Glucose Ql (U) 4+ mg/dL Abnormal Negative [facility] Comment on above: Performed By: #### 4 [id number] #### [facility] [address] [place] [address] Hemoglobin Auto test strip (U) [Mass/Vol] Negative Normal Negative [facility] Comment on above: Performed By: #### 4 [id number] #### [facility] [address] [place] [address] Ketones Auto test strip Ql (U) 3+ mg/dL Abnormal Negative [facility] Comment on above: Performed By: #### 4 [id number] #### [facility] [address] [place] [address] Leukocyte esterase Auto test strip Ql (U) Negative Normal Negative [facility] Comment on above: Performed By: #### 4 [id number] #### [facility] [address] [place] [address] Nitrite Auto test strip Ql (U) Negative Normal Negative [facility] Comment on above: Performed By: #### 4 [id number] #### [facility] [address] [place] [address] pH (U) 6.0 [pH] Invalid Interpretation Code 5.0-9.0 [facility] Comment on above: Performed By: #### 4 [id number] #### [facility] [address] [place] [address] Protein Ql (U) Trace Abnormal Negative [facility] Comment on above: Performed By: #### 4 [id number] #### [facility] [address] [place] [address] Specific gravity (U) [Rel density] 1.038 Invalid Interpretation Code 1.005-1.03 0 [facility] Comment on above: Performed By: #### 4 [id number] #### [facility] [address] [place] [address] Urobilinogen (U) [Mass/Vol] Negative Normal Negative [facility] Comment on above: Performed By: #### 4 [id number] #### [facility] [address] [place] [address] Type of Urine collection method Craft Normal [facility] Comment on above: Performed By: #### 4 [id number] #### [facility] [address] [place] [address] XR Abdomen 1 Viewon 03-15-20 24 XR [...] mGy = 12.53 DAP = na Normal [facility] eGFRon 03-15-2024 eGFR 119 mL/min/1.73 m2 Normal >=59 [facility] Comment on above: Order Comment: Order added by Discern Expert. Performed By: #### 1 [id number] #### [facility] [address] [place] [address] BLOOD BANKOrdered By: Tabatha Ren on 03-14-2024 ABO/Rh Retype Interp Positive Invalid Interpretation Code [facility] BB Subsection BMPon 03-14-2024 Anion gap [Moles/Vol] 17 mmol/L High 6-16 [facility] Comment on above: Performed By: #### 2 [id number] #### [facility] [address] [place] [address] Calcium [Mass/Vol] 8.4 mg/dL Low 8.9-11.1 [facility] Comment on above: Performed By: #### 2 [id number] #### [facility] [address] [place] [address] Chloride [Moles/Vol] 104 mmol/L Normal 101-111 [facility] Comment on above: Performed By: #### 2 [id number] #### [facility] [address] [place] [address] CO2 [Moles/Vol] 18 mmol/L Low 21-31 [facility] Comment on above: Performed By: #### 2 [id number] #### [facility] [address] [place] [address] Creatinine [Mass/Vol] 0.6 mg/dL Normal 0.5-1.3 [facility] Comment on above: Performed By: #### 2 104749 #### [facility] [address] [place] [address] Glucose [Mass/Vol] 232 mg/dL High 55-199 [facility] Comment on above: Performed By: #### 2 022613 #### [facility] [address] [place] [address] Potassium [Moles/Vol] 4.2 mmol/L Normal 3.5-5.3 [facility] Comment on above: Performed By: #### 2 597075 #### [facility] [address] [place] [address] Sodium [Moles/Vol] 135 mmol/L Normal 135-145 [facility] Comment on above: Performed By: #### 2 [id number] #### [facility] [address] [place] [address] Urea nitrogen [Mass/Vol] 14 mg/dL Normal 5-21 [facility] Comment on above: Performed By: #### 2 025497 #### [facility] [address] [place] [address] Urea nitrogen/Creatinine [Mass ratio] 23 No Units High 10-20 [facility] Comment on above: Performed By: #### 2 900587 #### [facility] [address] [place] [address] CBC w/ Auto Diffon 4 Basophils/100 WBC (Bld) 0.4 % Normal 0.0-2.0 [facility] Comment on above: Performed By: #### 2 [id number] #### [facility] [address] [place] [address] Basophils/Leukocytes Auto (Bld) [Pure # fraction] 0.1 E9/L Normal 0.0-0.2 [facility] Comment on above: Performed By: #### 2 286996 #### [facility] [address] [place] [address] Eosinophils (Bld) [#/Vol] 0.0 E9/L Normal 0.0-0.5 [facility] Comment on above: Performed By: #### 2 478466 #### [facility] [address] [place] [address] Eosinophils/100 WBC (Bld) 0.2 % Normal 0.0-8.0 [facility] Comment on above: Performed By: #### 2 [id number] #### [facility] [address] [place] [address] Erythrocyte distribution width (RBC) [Ratio] 15.9 % High 10.9-14.2 [facility] Comment on above: Performed By: #### 2 677717 #### [facility] [address] [place] [address] Hematocrit (Bld) [Volume fraction] 42.7 % Normal 37.7-49.0 [facility] Comment on above: Performed By: #### 2 638361 #### [facility] [address] [place] [address] Hemoglobin (Bld) [Mass/Vol] 14.8 g/dL Normal 13.5-17.5 [facility] Comment on above: Performed By: #### 2 275359 #### [facility] [address] [place] [address] Lymphocytes (Bld) [#/Vol] 1.2 E9/L Normal 1.0-4.0 [facility] Comment on above: Performed By: #### 2 715284 #### [facility] [address] [place] [address] Lymphocytes/100 WBC (Bld) 8.8 % Low 14.0-50.0 [facility] Comment on above: Performed By: #### 2 659056 #### [facility] [address] [place] [address] MCH (RBC) [Entitic mass] 29.1 pg Normal 27.0-34.0 [facility] Comment on above: Performed By: #### 2 283492 #### [facility] [address] [place] [address] MCHC (RBC) [Mass/Vol] 34.6 g/dL Normal 31.4-36.0 [facility] Comment on above: Performed By: #### 2 880882 #### [facility] [address] [place] [address] MCV (RBC) [Entitic vol] 84.0 fL Normal 80.0-100.0 [facility] Comment on above: Performed By: #### 2 678463 #### [facility] [address] [place] [address] Monocytes (Bld) [#/Vol] 0.7 E9/L Normal 0.2-1.0 [facility] Comment on above: Performed By: #### 2 768911 #### [facility] [address] [place] [address] Neutrophils (Bld) [#/Vol] 11.9 E9/L High 2.0-7.5 [facility] Comment on above: Performed By: #### 2 117874 #### [facility] [address] [place] [address] Neutrophils/100 WBC (Bld) 85.8 % High 36.0-75.0 [facility] Comment on above: Performed By: #### 2 122560 #### [facility] [address] [place] [address] Platelet 314.0 E9/L Normal 150.0-500. 0 [facility] Comment on above: Performed By: #### 2 769854 #### [facility] [address] [place] [address] Platelet mean volume (Bld) [Entitic vol] 7.1 fL Normal 6.4-10.8 [facility] Comment on above: Performed By: #### 2 288329 #### [facility] [address] [place] [address] RBC (Bld) [#/Vol] 5.1 E12/L Normal 4.3-5.9 [facility] Comment on above: Performed By: #### 2 148042 #### [facility] [address] [place] [address] WBC corrected for nucl RBC Auto (Bld) [#/Vol] 13.9 E9/L High 4.0-11.0 [facility] Comment on above: Performed By: #### 2 633081 #### [facility] [address] [place] [address] CHEMISTRYOrdered By: SYSTEM SYSTEM on 03-14-2024 Albumin [...] 35.3 s Normal 25.1 - 36.5 second(s) [facility] Comment on above: Interpretive Data: [...] the same coagulation reagent and instrumentation as [facility]. Currently there are no coagulation studies available worldwide for children to 14 days, and no normal ranges. Heparin therapeutic range (represented by Anti-Factor Xa activity of 0.2 - 0.4 U/mL) corresponds to PTT of 56.6 - 109.0 sec. INR Coag (PPP) [Relative time] 0.91 {INR} Invalid Interpretation Code [facility] Comment on above: Interpretive Data: I NR results are specifically intended to assess patients stabilized on long-term Anticoagulation therapy suggested INR s Less Intensive Anticoagulation 2.0 3.0 Conventional Range 3.0 4.5 PT Coag (PPP) [Time] 10.2 s Normal 9.4 - 1 2.5 second(s) [facility] Comment on above: Interpretive Data: 1 5 days - 4 weeks 1 - 5 months 6 -11 months 1-5 years 6-10 years 11 -17 years Mean: 11.2 (9.5-12.6) Mean: 11.0 (9.7-12.8) Mean: 11.0 (9.8-13.0) Mean: 11.3 (9.9-13.4) Mean: 11.7 (10.0-14.6) Mean: 11.8 (10.0 - 14.1) Pediatric Reference ranges were obtained from a study by sandee Yepez alMaddie prepared from 1437 samples obtained at 7 different centers using the same coagulation reagent and instrumentation as [facility]. Currently there are no coagulation studies available [...] 300 Contrast amount in ml's: 100 Normal [facility] ED Clinical Summaryon 2023 ED Clinical Summary ED Clinical Summary [address] [address] ED Clinical Summary Person Information Name: CHRISTIAN SHELBY [facility] Age: 48 Years : 1975 Sex: Male Language: Sri [place]an PCP: JOAN CARRILLO CNP Marital Status: Phone: [phone] Visit Id: Visit Reason: Hernia; Abdominal pain; HERNIA IN LOWER STOMACH AREA Speciality: Acuity: 2 Enc Type: Inpatient Med Service: Emergency Arrival: 03/14/2024 17:37:38 Discharge: LOS: 000 05:51 Checkin: 03/14/2024 17:37:38 Checkout: 03/14/2024 23:28:55 Dispo Type: Admitted as IP to this [facility] EVENTS: Event Name Event Status Request [...] 22:51:16 Patient Care Request 03/14/2024 22:51:16 ADDRESS: [facility] [place] [id number] PHYS DOC NOTES: MEDICAL INFORMATION: Prescriptions Given: [...] Instructions: Follow up: DIAGNOSIS: 1:Ventral hernia Normal [facility] ED Note-Physicianon 03-14-20 ED Note-Physician ED [...] to his service for further management. Normal [facility] Comment on above: Result Comment: Elec tronically Signed By: Shaun Caceres DO\.br\Date and Time Signed: 03/14/24 21:22 EDT ED Patient Education Noteon 03-14-2024 ED Patient Education Note ED Patient Education Note Normal [facility] ED Patient Summaryon ED Patient Summary ED Patient Summary [place] [address] Patient Discharge Instructions Person Information Name: CHRISTIAN SHELBY Age: 48 Years Arrival Date: 03/14/2024 17:37:38 Discharge Diagnosis: 1:Ventral hernia Primary Care Physician: JOAN CARRILLO CNP Provider Information Primary Provider: Demarco Ferreira DO Advanced Environmental Education Specialist:Baljit Moyer PA-C The exam and treatment you received in the Emergency Department were for an urgent problem and are not intended as complete care. It is important that you follow up with a doctor, nurse practitioner, or physician?s assistant guest services manager for ongoing care. If your symptoms become [...] opioids can be used to help relieve rujutmyz-wr-wpyjeq pain and are often prescribed following a [...] be struggling with addiction, tell your health floor care technician and ask for guidance or call [facility] National Helpline at 7-178-458-HPNK. v Source: [place] Department of Health and Human Services/Center for Disease Control & Prevention [facility] Medications Given: Medicati (more content not included)... Normal [facility] Hep Func Panelon 03-14-2024 Albumin [Mass/Vol] 3.8 g/dL Normal 3.3-5.0 [facility] Comment on above: Performed By: #### 2 [id number] #### [facility] [address] [place] [address] Albumin/Globulin (S) [Mass conc ratio] 1.0 Low 1.1-2.2 [facility] Comment on above: Performed By: #### 2 [id number] #### [facility] [address] [place] [address] ALP [Catalytic activity/Vol] 71 Int._Unit/L Normal 21-98 [facility] Comment on above: Performed By: #### 2 472950 #### [facility] [address] [place] [address] ALT No additional P-5'-P [Catalytic activity/Vol] 31 Int._Unit/L Normal 6-46 [facility] Comment on above: Performed By: #### 2 835213 #### [facility] [address] [place] [address] AST [Catalytic activity/Vol] 19 Int._Unit/L Normal 5-43 [facility] Comment on above: Performed By: #### 2 544078 #### [facility] [address] [place] [address] Bilirubin [Mass/Vol] 0.5 mg/dL Normal 0.0-1.1 [facility] Comment on above: Performed By: #### 2 114014 #### [facility] [address] [place] [address] Bilirubin.direct [Mass/Vol] 0.1 mg/dL Normal 0.0-0.4 [facility] Comment on above: Performed By: #### 2 273691 #### [facility] [address] [place] [address] Bilirubin.indirect [Mass or moles/Vol] 0.4 mg/dL Normal 0.1-0.9 [facility] Comment on above: Performed By: #### 2 108094 #### [facility] [address] [place] [address] Globulin (S) [Mass/Vol] 3.7 g/dL Normal 1.4-4.0 [facility] Comment on above: Performed By: #### 2 656174 #### [facility] [address] [place] [address] Protein [Mass/Vol] 7.5 g/dL Normal 6.0-7.8 [facility] Comment on above: Performed By: #### 2 336114 #### [facility] [address] [place] [address] Lactic Acidon 03-14-2024 Lactic Acid Lvl 1.2 mmol/L Normal 0.5-2.2 [facility] Comment on above: Performed By: #### 2 678819 #### [facility] [address] [place] [address] Lipase Levelon 03-14-2024 Lipase [Catalytic activity/Vol] 10 U/L Low 13-58 [facility] Comment on above: Performed By: #### 2 173342 #### [facility] [address] [place] [address] PT & PTTon 03-14-2024 aPTT Coag (PPP) [Time] 35.3 second(s) Normal 25.1-36.5 [facility] Comment on above: Result Comment: Para [...] the same coagulation reagent and instrumentation as [facility]. Currently there are no coagulation studies available worldwide for children to 14 days, and no normal ranges. Heparin therapeutic range (represented by Anti-Factor Xa activity of 0.2 - 0.4 U/mL) corresponds to PTT of 56.6 - 109.0 sec. Performed By: #### 1 [id number] #### [facility] [address] [place] [address] INR Coag (PPP) [Relative time] 0.91 {INR} Invalid Interpretation Code [facility] Comment on above: Result Comment: INR results are specifically intended to assess patients stabilized on long-term Anticoagulation therapy suggested INR?s ?Less Intensive Anticoagulation? 2.0 ? 3.0 Conventional Range 3.0 ? 4.5 Performed By: #### 1 [id number] #### [facility] [address] [place] [address] PT Coag (PPP) [Time] 10.2 second(s) Normal 9.4-12.5 [facility] Comment on above: Result Comment: 15 [...] the same coagulation reagent and instrumentation as [facility]. Currently there are no coagulation studies available worldwide for children to 14 days, and no normal ranges. Performed By: #### 1 [id number] #### [facility] [address] [place] [address] eGFRon 03-14-2024 eGFR 119 mL/min/1.73 m2 Normal >=59 [facility] Comment on above: Order Comment: Order added by Discern Expert. Performed By: #### 1 [id number] #### [facility] [address] [place] [address] BMPon 03-05-2024 Anion gap [Moles/Vol] 12 mmol/L Normal 6-16 [facility] Comment on above: Performed By: #### 2 553401 #### [facility] [address] [place] [address] Calcium [Mass/Vol] 7.8 mg/dL Low 8.9-11.1 [facility] Comment on above: Performed By: #### 2 292507 #### [facility] [address] [place] [address] Chloride [Moles/Vol] 105 mmol/L Normal 101-111 [facility] Comment on above: Performed By: #### 2 190565 #### [facility] [address] [place] [address] CO2 [Moles/Vol] 23 mmol/L Normal 21-31 [facility] Comment on above: Performed By: #### 2 838679 #### [facility] [address] [place] [address] Creatinine [Mass/Vol] 0.6 mg/dL Normal 0.5-1.3 [facility] Comment on above: Performed By: #### 2 922998 #### [facility] [address] [place] [address] Glucose [Mass/Vol] 183 mg/dL Normal 55-199 [facility] Comment on above: Performed By: #### 2 779508 #### [facility] [address] [place] [address] Potassium [Moles/Vol] 3.6 mmol/L Normal 3.5-5.3 [facility] Comment on above: Performed By: #### 2 308637 #### [facility] [address] [place] [address] Sodium [Moles/Vol] 136 mmol/L Normal 135-145 [facility] Comment on above: Performed By: #### 2 124542 #### [facility] [address] [place] [address] Urea nitrogen [Mass/Vol] 12 mg/dL Normal 5-21 [facility] Comment on above: Performed By: #### 2 525463 #### [facility] [address] [place] [address] Urea nitrogen/Creatinine [Mass ratio] 20 No Units Normal 10-20 [facility] Comment on above: Performed By: #### 2 878598 #### [facility] [address] [place] [address] Bld Gas Venon 03-05-2024 Allens Test Not Applicable Normal [facility] Comment on above: Performed By: #### 1 [id number] #### [facility] [address] [place] [address] Drawn by lab Invalid Interpretation Code [facility] Comment on above: Performed By: #### 1 [id number] #### [facility] [address] [place] [address] Sample Site OTHER Normal [facility] Comment on above: Performed By: #### 1 [id number] #### [facility] [address] [place] [address] CBC w/ Auto Diffon 4 Basophils/100 WBC (Bld) 0.3 % Normal 0.0-2.0 [facility] Comment on above: Performed By: #### 2 671533 #### [facility] [address] [place] [address] Basophils/Leukocytes Auto (Bld) [Pure # fraction] 0.0 E9/L Normal 0.0-0.2 [facility] Comment on above: Performed By: #### 2 802766 #### [facility] [address] [place] [address] Eosinophils (Bld) [#/Vol] 0.1 E9/L Normal 0.0-0.5 [facility] Comment on above: Performed By: #### 2 402481 #### [facility] [address] [place] [address] Eosinophils/100 WBC (Bld) 1.1 % Normal 0.0-8.0 [facility] Comment on above: Performed By: #### 2 375236 #### [facility] [address] [place] [address] Erythrocyte distribution width (RBC) [Ratio] 16.2 % High 10.9-14.2 [facility] Comment on above: Performed By: #### 2 820203 #### [facility] [address] [place] [address] Hematocrit (Bld) [Volume fraction] 40.9 % Normal 37.7-49.0 [facility] Comment on above: Performed By: #### 2 003014 #### [facility] [address] [place] [address] Hemoglobin (Bld) [Mass/Vol] 13.3 g/dL Low 13.5-17.5 [facility] Comment on above: Performed By: #### 2 260869 #### [facility] [address] [place] [address] Lymphocytes (Bld) [#/Vol] 2.6 E9/L Normal 1.0-4.0 [facility] Comment on above: Performed By: #### 2 422312 #### [facility] [address] [place] [address] Lymphocytes/100 WBC (Bld) 22.4 % Normal 14.0-50.0 [facility] Comment on above: Performed By: #### 2 713991 #### [facility] [address] [place] [address] MCH (RBC) [Entitic mass] 27.5 pg Normal 27.0-34.0 [facility] Comment on above: Performed By: #### 2 497525 #### [facility] [address] [place] [address] MCHC (RBC) [Mass/Vol] 32.5 g/dL Normal 31.4-36.0 [facility] Comment on above: Performed By: #### 2 900348 #### [facility] [address] [place] [address] MCV (RBC) [Entitic vol] 84.5 fL Normal 80.0-100.0 [facility] Comment on above: Performed By: #### 2 445251 #### [facility] [address] [place] [address] Monocytes (Bld) [#/Vol] 1.1 E9/L High 0.2-1.0 [facility] Comment on above: Performed By: #### 2 271585 #### [facility] [address] [place] [address] Neutrophils (Bld) [#/Vol] 7.7 E9/L High 2.0-7.5 [facility] Comment on above: Performed By: #### 2 699589 #### [facility] [address] [place] [address] Neutrophils/100 WBC (Bld) 66.8 % Normal 36.0-75.0 [facility] Comment on above: Performed By: #### 2 842135 #### [facility] [address] [place] [address] Platelet mean volume (Bld) [Entitic vol] 7.1 fL Normal 6.4-10.8 [facility] Comment on above: Performed By: #### 2 172421 #### [facility] [address] [place] [address] Platelets (Bld) [#/Vol] 296.0 E9/L Normal 150.0-500. 0 [facility] Comment on above: Performed By: #### 2 762586 #### [facility] [address] [place] [address] RBC (Bld) [#/Vol] 4.8 E12/L Normal 4.3-5.9 [facility] Comment on above: Performed By: #### 2 211639 #### [facility] [address] [place] [address] WBC corrected for nucl RBC Auto (Bld) [#/Vol] 11.5 E9/L High 4.0-11.0 [facility] Comment on above: Performed By: #### 2 508743 #### [facility] [address] [place] [address] CHEMISTRYOrdered By: SYSTEM SYSTEM on 03-05-2024 Anion [...] 165 mg/dL High 55 - 99 mg/dL [facility] POC Subsection Comment on above: Result Comment: Isabelle MARES POC Device SN [id number] 1 Invalid Interpretation Code [facility] POC Subsection POC User ID [id number] 1 Invalid Interpretation Code [facility] POC Subsection POC Username SIR DEMARCO CARR Invalid Interpretation Code [facility] POC Subsection Capillary Glucose POCon 02-08 Glucose [Mass/Vol] 165 mg/dL High 55-99 [facility] Comment on above: Result Comment: Isabelle MARES Performed By: #### 2 [id number] #### [facility] [address] [place] [address] Discharge Note-Nursingon Discharge Note-Nursing Discharge Note-Nursing Pt provided discharge education. Pt denies any questions at this time. IV removed and pt transferred to patient pickup via wheelchair. Normal [facility] HEMATOLOGYOrdered By: SYSTEM SYSTEM on 03-05-2024 [...] 03-05-2024 Inpatient Clinical Summary Inpatient Clinical Summary [place] [id number] Clinical Summary Person Information: Name: CHRISTIAN SHELBY Age: 48 Years : 1975 Sex: Male PCP: JOAN CARRILLO CNP Marital Status: Phone: [phone] Race: White Ethnicity: Non- or Language: Sri Lankan Visit Id: Visit Reason: Abdominal pain; ABD PAIN Speciality: Acuity: Enc Type: Observation Med Service: Medical Arrival: 03/04/2024 13:47:44 Discharge: Dispo Type: Admitted as IP to this Hosp Address: [address] [place] [id number] Provider Notes: Diagnosis: Small bowel obstruction; Ventral [...] With: Address: When: JOAN CARRILLO [address] [place], [place] [phone] Business (1) Within 7 to 10 days Comments: Call for followup appointment Call physician if symptoms worsen With: Address: When: trauma clinic [address] [place] [address] 3, second floor, [address] [place] [address] , only if needed Comments: Please call to make follow up appointment if you have questions or concerns. Patient Education Information: Hernia, Adult Normal [facility] Inpatient Patient Summaryon 03-05-2024 Inpatient Patient Summary Inpatient Patient Summary CHRISTIAN SHELBY :1975 Visit Date:03/04/2024 Inpatient Discharge Instructions Your Care Team Admitting Physician - Esvin Hill MD. Reason for Your Visit hernia Your Diagnosis [...] if symptoms worsen Where: [address] [place] [address] [phone] Business (1) Follow Up with trauma clinic When: Only if needed Comments: Please call to make follow up appointment if you have questions or concerns. Where: [address] [facility] 3, second floor, [address] [place] [address]- [phone] Medications What How Much When Instructions Next [...] mmol/L (03/05/24 05:48:00) RDW: 16.2 % High (03/05/24:48:00) CO2: 23 mmol/L (03/05/24 05:48:00) Platelet: 296 [...] It may (more content not included)... Normal [facility] Inpatient Patient Summary Inpatient Patient Summary [address] [address] Patient Discharge Instructions PERSON INFORMATION Name: CHRISTIAN SHELBY Date of : 1975 Current Date: 03/05/2024 10:00:00 PHYSICIANS Admitting Physician: Esvin Hill MD Primary Care Physician: JOAN CARRILLO CNP PCP Phone Number: [phone] Comment: Discharge Diagnosis: Small bowel obstruction; Ventral [...] With: Address: When: JOAN CARRILLO [address], [place] [phone] Business (1) Within 7 to 10 days Comments: Call for followup appointment Call physician if symptoms worsen With: Address: When: trauma clinic [address] [facility] [address], second floor, [address] [place] [address] , only if needed Comments: Please call to make follow up appointment if you have questions or concerns. In the event that this physician does not participate in your insurance network, please consult with your insurance company to find a nearby participating provider. Comment: I, LONG, CHRISTIAN G, have received the attached patient education [...] Information: Other: Celeste Patton in [employer] Comment: PATIENT EDUCATION INFORMATION Instructions: Hernia, Adult [...] a lo (more content not included)... Normal [facility] Interdisciplinary Note - Alexander e Manageron 03-05-2024 Interdisciplinary Note - Marketing Communications Manager Interdisciplinary Note - Marketing Communications Manager CRM to room to discuss DC [...] needs for DME, HH or PM. Normal [facility] Comment on above: Result Comment: Elec tronically Signed By: Bhavna Mcnair\.br\Date and Time Signed: 03/05/24 09:00 EDT Magnesiumon 03-05-2024 Magnesium [Mass/Vol] 1.8 mg/dL Normal 1.3-2.4 [facility] Comment on above: Performed By: #### 2 [id number] #### [facility] [address] [id number] UA with Cult Rflxon 03-05-20 Bilirubin Ql (U) Negative Normal Negative [facility] Comment on above: Performed By: #### 4 [id number] #### [facility] [address] [place] [address] Clarity (U) Clear Normal Clear [facility] Comment on above: Performed By: #### 4 [id number] #### [facility] [address] [place] [address] Color (U) Light-Yellow Normal Yellow [facility] Comment on above: Result Comment: Micr oscopic readings are only performed on those samples that meet specific criteria set forth by [facility]. Performed By: #### 4 [id number] #### [facility] [address] [place] [address] Epithelial cells.squamous Auto (Urine sed) [#/Area] 0-2 Invalid Interpretation Code [facility] Comment on above: Performed By: #### 4 [id number] #### [facility] [address] [place] [address] Glucose Ql (U) 4+ mg/dL Abnormal Negative [facility] Comment on above: Performed By: #### 4 [id number] #### [facility] [address] [place] [address] Hemoglobin Auto test strip (U) [Mass/Vol] Negative Normal Negative [facility] Comment on above: Performed By: #### 4 [id number] #### [facility] [address] [place] [address] Ketones Auto test strip Ql (U) 2+ mg/dL Abnormal Negative [facility] Comment on above: Performed By: #### 4 [id number] #### [facility] [address] [place] [address] Leukocyte esterase Auto test strip Ql (U) 25 Flora/uL Normal Negative [facility] Comment on above: Performed By: #### 4 [id number] #### [facility] [address] [place] [address] Mucus Auto Ql (U) Trace Normal Negative [facility] Comment on above: Performed By: #### 4 [id number] #### [facility] [address] [place] [address] Nitrite Auto test strip Ql (U) Negative Normal Negative [facility] Comment on above: Performed By: #### 4 [id number] #### [facility] [address] [place] [address] pH (U) 5.5 [pH] Invalid Interpretation Code 5.0-9.0 [facility] Comment on above: Performed By: #### 4 [id number] #### [facility] [address] [place] [address] Protein Ql (U) Negative Normal Negative [facility] Comment on above: Performed By: #### 4 [id number] #### [facility] [address] [place] [address] RBC Ql (U) 0-3 Normal 0-3 [facility] Comment on above: Performed By: #### 4 [id number] #### [facility] [address] [place] [address] Specific gravity (U) [Rel density] 1.026 Invalid Interpretation Code 1.005-1.03 0 [facility] Comment on above: Performed By: #### 4 [id number] #### [facility] [address] [place] [address] Urobilinogen (U) [Mass/Vol] Negative Normal Negative [facility] Comment on above: Performed By: #### 4 [id number] #### [facility] [address] [place] [address] WBC Auto (Urine sed) [#/Area] 0-5 Normal 0-5 [facility] Comment on above: Performed By: #### 4 [id number] #### [facility] [address] [place] [address] URINALYSISOrdered By: SYSTEM SYSTEM on 03-05-2024 Bilirubin Ql (U) Negative Normal Negativemg /dL [facility] UA Auto SS Clarity (U) Clear (03/05/24 7:36 AM) Normal Clear [facility] UA Auto SS Color (U) Light-Yellow 1 (03/05/24 7:36 AM) Normal Yellow [facility] UA Auto SS Comment on above: Interpretive Data: M icroscopic readings are only performed on those samples that meet specific criteria set forth by [facility]. Epithelial cells.squamous Auto (Urine sed) [...] Desc Clean Catch (03/05/24 7:36 AM) Normal [facility] UA Auto SS Work Phone: eGFRon 03-05-2024 eGFR 119 mL/min/1.73 m2 Normal >=59 [facility] Comment on above: Order Comment: Order added by Discern Expert. Performed By: #### 1 [id number] #### [facility] [address] [place] [address] BMPon 03-04-2024 Anion gap [Moles/Vol] 16 mmol/L Normal -16 [facility] Comment on above: Performed By: #### 2 [id number] #### [facility] [address] [place] [address] Calcium [Mass/Vol] 8.0 mg/dL Low 8.9-11.1 [facility] Comment on above: Performed By: #### 2 [id number] #### [facility] [address] [place] [address] Chloride [Moles/Vol] 104 mmol/L Normal 101-111 [facility] Comment on above: Performed By: #### 2 [id number] #### [facility] [address] [place] [address] CO2 [Moles/Vol] 21 mmol/L Normal 21-31 [facility] Comment on above: Performed By: #### 2 [id number] #### [facility] [address] [place] [address] Creatinine [Mass/Vol] 0.7 mg/dL Normal 0.5-1.3 [facility] Comment on above: Performed By: #### 2 073012 #### [facility] [address] [place] [address] Glucose [Mass/Vol] 194 mg/dL Normal 55-199 [facility] Comment on above: Performed By: #### 2 [id number] #### [facility] [address] [place] [address] Potassium [Moles/Vol] 3.9 mmol/L Normal 3.5-5.3 [facility] Comment on above: Performed By: #### 2 [id number] #### [facility] [address] [place] [address] Sodium [Moles/Vol] 137 mmol/L Normal 135-145 [facility] Comment on above: Performed By: #### 2 [id number] #### [facility] [address] [place] [address] Urea nitrogen [Mass/Vol] 12 mg/dL Normal 5-21 [facility] Comment on above: Performed By: #### 2 151966 #### [facility] [address] [place] [address] Urea nitrogen/Creatinine [Mass ratio] 17 No Units Normal 10-20 [facility] Comment on above: Performed By: #### 2 [id number] #### [facility] [address] [place] [address] Anion gap [Moles/Vol] 21 mmol/L High 6-16 [facility] Comment on above: Performed By: #### 2 [id number] #### [facility] [address] [place] [address] Calcium [Mass/Vol] 8.8 mg/dL Low 8.9-11.1 [facility] Comment on above: Performed By: #### 2 158586 #### [facility] [address] [place] [address] Chloride [Moles/Vol] 100 mmol/L Low 101-111 [facility] Comment on above: Performed By: #### 2 552602 #### [facility] [address] [place] [address] CO2 [Moles/Vol] 16 mmol/L Low 21-31 [facility] Comment on above: Performed By: #### 2 696275 #### [facility] [address] [place] [address] Creatinine [Mass/Vol] 0.7 mg/dL Normal 0.5-1.3 [facility] Comment on above: Performed By: #### 2 689897 #### [facility] [address] [place] [address] Glucose [Mass/Vol] 272 mg/dL High 55-199 [facility] Comment on above: Performed By: #### 2 190742 #### [facility] [address] [place] [address] Potassium [Moles/Vol] 4.3 mmol/L Normal 3.5-5.3 [facility] Comment on above: Performed By: #### 2 664108 #### [facility] [address] [place] [address] Sodium [Moles/Vol] 133 mmol/L Low 135-145 [facility] Comment on above: Performed By: #### 2 235499 #### [facility] [address] [place] [address] Urea nitrogen [Mass/Vol] 12 mg/dL Normal 5-21 [facility] Comment on above: Performed By: #### 2 293359 #### [facility] [address] [place] [address] Urea nitrogen/Creatinine [Mass ratio] 17 No Units Normal 10-20 [facility] Comment on above: Performed By: #### 2 857017 #### [facility] [address] [place] [address] Bld Gas Venon 03-04-2024 FIO2 BG 21 Invalid Interpretation Code [facility] Comment on above: Performed By: #### 1 [id number] #### [facility] [address] [place] [address] pCO2 Myron 36.7 mmHg Low 38.0-50.0 [facility] Comment on above: Performed By: #### 1 [id number] #### [facility] [address] [place] [address] pH Myron 7.370 Normal 7.320-7.43 0 [facility] Comment on above: Performed By: #### 1 [id number] #### [facility] [address] [place] [address] Sample Type Venous Draw Normal [facility] Comment on above: Performed By: #### 1 [id number] #### [facility] [address] [place] [address] CBC w/ Auto Diffon 4 Basophils/100 WBC (Bld) 0.3 % Normal 0.0-2.0 [facility] Comment on above: Performed By: #### 2 898282 #### [facility] [address] [place] [address] Basophils/Leukocytes Auto (Bld) [Pure # fraction] 0.1 E9/L Normal 0.0-0.2 [facility] Comment on above: Performed By: #### 2 528659 #### [facility] [address] [place] [address] Eosinophils (Bld) [#/Vol] 0.0 E9/L Normal 0.0-0.5 [facility] Comment on above: Performed By: #### 2 176236 #### [facility] [address] [place] [address] Eosinophils/100 WBC (Bld) 0.2 % Normal 0.0-8.0 [facility] Comment on above: Performed By: #### 2 569224 #### [facility] [address] [place] [address] Erythrocyte distribution width (RBC) [Ratio] 15.9 % High 10.9-14.2 [facility] Comment on above: Performed By: #### 2 772246 #### [facility] [address] [place] [address] Hematocrit (Bld) [Volume fraction] 48.0 % Normal 37.7-49.0 [facility] Comment on above: Performed By: #### 2 231198 #### [facility] [address] [place] [address] Hemoglobin (Bld) [Mass/Vol] 15.8 g/dL Normal 13.5-17.5 [facility] Comment on above: Performed By: #### 2 173333 #### [facility] [address] [place] [address] Lymphocytes (Bld) [#/Vol] 1.2 E9/L Normal 1.0-4.0 [facility] Comment on above: Performed By: #### 2 052008 #### [facility] [address] [place] [address] Lymphocytes/100 WBC (Bld) 7.3 % Low 14.0-50.0 [facility] Comment on above: Performed By: #### 2 991838 #### [facility] [address] [place] [address] MCH (RBC) [Entitic mass] 27.8 pg Normal 27.0-34.0 [facility] Comment on above: Performed By: #### 2 654159 #### [facility] [address] [place] [address] MCHC (RBC) [Mass/Vol] 32.9 g/dL Normal 31.4-36.0 [facility] Comment on above: Performed By: #### 2 [id number] #### [facility] [address] [place] [address] MCV (RBC) [Entitic vol] 84.5 fL Normal 80.0-100.0 [facility] Comment on above: Performed By: #### 2 078501 #### [facility] [address] [place] [address] Monocytes (Bld) [#/Vol] 0.6 E9/L Normal 0.2-1.0 [facility] Comment on above: Performed By: #### 2 698132 #### [facility] [address] [place] [address] Neutrophils (Bld) [#/Vol] 13.9 E9/L High 2.0-7.5 [facility] Comment on above: Performed By: #### 2 284891 #### [facility] [address] [place] [address] Neutrophils/100 WBC (Bld) 88.3 % High 36.0-75.0 [facility] Comment on above: Performed By: #### 2 551591 #### [facility] [address] [place] [address] Platelet mean volume (Bld) [Entitic vol] 7.2 fL Normal 6.4-10.8 [facility] Comment on above: Performed By: #### 2 595744 #### [facility] [address] [place] [address] Platelets (Bld) [#/Vol] 313.0 E9/L Normal 150.0-500. 0 [facility] Comment on above: Performed By: #### 2 066605 #### [facility] [address] [place] [address] RBC (Bld) [#/Vol] 5.7 E12/L Normal 4.3-5.9 [facility] Comment on above: Performed By: #### 2 959327 #### [facility] [address] [place] [address] WBC corrected for nucl RBC Auto (Bld) [#/Vol] 15.8 E9/L High 4.0-11.0 [facility] Comment on above: Performed By: #### 2 289455 #### [facility] [address] [place] [address] CHEMISTRYOrdered By: Lab ROP User on 03-04-2024 Glucose [Mass/Vol] 169 mg/dL High 55 - 99 mg/dL [facility] POC Subsection POC Device SN [id number] 1 Invalid Interpretation Code [facility] POC Subsection POC User ID [id number] 1 Invalid Interpretation Code [facility] POC Subsection POC Username LILLY SIR DEMARCO Invalid Interpretation Code [facility] POC Subsection Glucose [Mass/Vol] 191 mg/dL High 55 - 99 mg/dL [facility] POC Subsection Comment on above: Result Comment: Isabelle adames RN/ POC Device SN [id number] 1 Invalid Interpretation Code [facility] POC Subsection POC User ID [id number] 1 Invalid Interpretation Code [facility] POC Subsection POC Username TIM WARE Invalid Interpretation Code [facility] POC Subsection CHEMISTRYOrdered By: SYSTEM SYSTEM on [...] 300 Contrast amount in ml's: 100 Normal [facility] Capillary Glucose POCon 02-08 Glucose [Mass/Vol] 169 mg/dL High 55-99 [facility] Comment on above: Performed By: #### 2 [id number] #### [facility] [address] [place] [address] Glucose [Mass/Vol] 191 mg/dL High 55-99 [facility] Comment on above: Result Comment: Isabelle adames RN/ Performed By: #### 2 [id number] #### [facility] [address] [place] [address] Consent for Treatmenton 02-08 Consent for Treatment [id number] Normal [facility] ED Clinical Summaryon 2023 ED Clinical Summary (Inserted Image. Angella ble to display) [address] [address] ED Clinical Summary Person Information Name: CHRISTIAN SHELBY [facility] Age: 48 Years : 1975 Sex: Male Language: Sri Lankan PCP: JOAN CARRILLO CNP Marital Status: Phone: [phone] Visit Id: Visit Reason: Abdominal pain; ABD PAIN Speciality: Acuity: 2 Enc Type: Emergency Med Service: Emergency Arrival: 03/04/2024 13:47:44 Discharge: LOS: 000 04:16 Checkin: 03/04/2024 13:47:44 Checkout: 03/04/2024 18:03:38 Dispo Type: Admitted as IP to this [facility] EVENTS: Event Name Event Status Request [...] 03/04/2024 18:03:38 03/04/2024 18:03:38 03/04/2024 18:03:38 ADDRESS: [address] [place] [id number] PHYS DOC NOTES: MEDICAL INFORMATION: Prescriptions Given: [...] DIAGNOSIS: Small bowel obstruction; Ventral hernia Normal [facility] ED Note-Physicianon 03-04-20 ED Note-Physician Basic [...] and Complexity of Problems Differential Diagnosis: [] [facility] Data External documents reviewed: [] My EKG [...] even further, with Leandra Wallace of the [facility] trauma surgery team coming down [...] Stable Dis (more content not included)... Normal [facility] Comment on above: Result Comment: Elec tronically Signed By: Ruiz Uriarte PA-C.jeniffer\Date and Time Signed: 03/04/24 18:36 EDT\.br\Electronically Co-Signed By: Arthur Palomo, Bryce Obrien\.br\Date and Time Co-Signed: 03/04/24 18:44 EDT ED Patient Education Noteon 03-04-2024 ED Patient Education Note Normal [facility] ED Patient Summaryon 024 ED Patient Summary (Inserted Image. Angella ble to display) [address] [address] Patient Discharge Instructions Person Information Name: CHRISTIAN SHELBY Age: 48 Years Arrival Date: 03/04/2024 13:47:44 Discharge Diagnosis: Small bowel obstruction; Ventral hernia Primary Care Physician: JOAN CARRILLO CNP Provider Information Primary Provider: Bryce Gibson M.D. Advanced Environmental Education Specialist:None The exam and treatment you received in the Emergency Department were for an urgent problem and are not intended as complete care. It is important that you follow up with a doctor, nurse practitioner, or physician?s assistant guest services manager for ongoing care. If your symptoms become [...] opioids can be used to help relieve ymhduevx-ls-oigjat pain and are often prescribed following a [...] be struggling with addiction, tell your health floor care technician and ask for guidance or call [employer]?S National Helpline at 8-054-613-QJIZ. v Source: [place] Department of Health and Human Services/Center for Disease Control & Prevention [facility] Medications Given: Medication Dose R (more content not included)... Normal [facility] FT Blood GasesOrdered By: Faisal Mcgarry on 03-04-2024 Allens Test Not Applicable (03/04/24 5:41 PM) Normal [facility] Resp Auto SS Drawn by lab Invalid Interpretation Code [facility] Resp Auto SS Sample Site OTHER (03/04/24 5:41 PM) Normal [facility] Resp Auto SS FT Blood GasesOrdered By: Maria Eugenia Reeves on 03-04-2024 FIO2 BG 21 1 Invalid Interpretation Code [facility] Resp Auto SS pCO2 Myron 36.7 mm[Hg] Low 38.0 - 50.0 mmHg [facility] Resp Auto SS pH (Bld) 7.370 [pH] Normal 7.320 - 7.430 [facility] Resp Auto SS Sample Type Venous Draw (03/04/24 5:41 PM) Normal [facility] Resp Auto SS HEMATOLOGYOrdered By: SYSTEM SYSTEM [...] 03-04-2024 Albumin [Mass/Vol] 4.2 g/dL Normal 3.3-5.0 [facility] Comment on above: Performed By: #### 2 [id number] #### [facility] [address] [place] [address] Albumin/Globulin (S) [Mass conc ratio] 1.1 Normal 1.1-2.2 [facility] Comment on above: Performed By: #### 2 855838 #### [facility] [address] [place] [address] ALP [Catalytic activity/Vol] 77 Int._Unit/L Normal 21-98 [facility] Comment on above: Performed By: #### 2 [id number] #### [facility] [address] [place] [address] ALT No additional P-5'-P [Catalytic activity/Vol] 30 Int._Unit/L Normal 6-46 [facility] Comment on above: Performed By: #### 2 407975 #### [facility] [address] [place] [address] AST [Catalytic activity/Vol] 16 Int._Unit/L Normal 5-43 [facility] Comment on above: Performed By: #### 2 767190 #### [facility] [address] [place] [address] Bilirubin [Mass/Vol] 0.5 mg/dL Normal 0.0-1.1 [facility] Comment on above: Performed By: #### 2 594416 #### [facility] [address] [place] [address] Bilirubin.direct [Mass/Vol] 0.1 mg/dL Normal 0.0-0.4 [facility] Comment on above: Performed By: #### 2 083174 #### [facility] [address] [place] [address] Bilirubin.indirect [Mass or moles/Vol] 0.4 mg/dL Normal 0.1-0.9 [facility] Comment on above: Performed By: #### 2 358454 #### [facility] [address] [place] [address] Globulin (S) [Mass/Vol] 4.0 g/dL Normal 1.4-4.0 [facility] Comment on above: Performed By: #### 2 [id number] #### [facility] [address] [place] [address] Protein [Mass/Vol] 8.2 g/dL High 6.0-7.8 [facility] Comment on above: Performed By: #### 2 820667 #### [facility] [address] [place] [address] Lactic Acidon 03-04-2024 Lactic Acid Lvl 1.3 mmol/L Normal 0.5-2.2 [facility] Comment on above: Performed By: #### 2 498486 #### [facility] [address] [place] [address] Lipase Levelon 03-04-2024 Lipase [Catalytic activity/Vol] 9 U/L Low 13-58 [facility] Comment on above: Performed By: #### 2 408141 #### [facility] [address] [place] [address] UA with Cult Rflxon 03-04-20 24 Type of Urine collection method Clean Catch Normal [facility] Comment on above: Performed By: #### 4 [id number] #### [facility] [address] [place] [address] eGFRon 03-04-2024 eGFR 113 mL/min/1.73 m2 Normal >=59 [facility] Comment on above: Order Comment: Order added by Discern Expert. Performed By: #### 1 [id number] #### [facility] [address] [place] [address] eGFR 113 mL/min/1.73 m2 Normal >=59 [facility] Comment on above: Order Comment: Order added by Discern Expert. Performed By: #### 1 [id number] #### [facility] [address] [place] [address] Inpatient Clinical Summaryon 08-23-2023 Inpatient Clinical Summary [address] [address] Clinical Summary Person Information: Name: CHRISTIAN SHELBY Age: 47 Years : 1975 Sex: Male PCP: Baljit Bryant DO Marital Status: Phone: [phone] Race: White Ethnicity: Non- or Language: Sri Lankan Visit Id: Visit Reason: Nausea; Abdominal pain; HERNIA Speciality: Acuity: Enc Type: Observation Med Service: Medical Arrival: 08/13/2023 18:32:38 Discharge: 08/14/2023 14:02:02 Dispo Type: Home (Routine DC) Address: [address] [place] [phone] Provider Notes: Diagnosis: 1:Abdominal hernia Problems Active [...] Referring Physician: Follow up: With: Address: When: [place] [phone] [facility] (1) With: Address: When: trauma clinic [address] [place] [address] 3, second floor, [address] [place] [phone] , only if needed Comments: Please call to make follow up appointment if you have questions or concerns. Our office has placed a referral to the bariatric clinic at [facility], if you do not hear from [facility] please contact this office and we can help facilitate scheduling an appointment. Patient Education Information: Hernia, Adult Normal [facility] Patient Education - Texton 1 10-24-2022 [...] keep your urine pale yellow. ? Take ruot-kmr-iqlojbk or prescription medicines. ? Eat foods that [...] any changes or new symptoms. ? Take ctpo-ekf-mdvskrl and prescription medicines only as told by [...] Feels hard (more content not included)... Normal [facility] Discharge Instructionson Discharge Instructions [id number] Normal [facility] Auto Diffon 08-14-2023 Basophils/100 WBC (Bld) 0.2 % Normal 0.0-2.0 [facility] Comment on above: Order Comment: Order Added by Discern Expert. Performed By: #### 1 [id number], 6547068, 8372079, 3622703 ####[address] [address] Basophils/Leukocytes Auto (Bld) [Pure # fraction] 0.0 E9/L Normal 0.0-0.2 [facility] Comment on above: Order Comment: Order Added by Discern Expert. Performed By: #### 1 9936031, 9558868, 8733998, 3808653 ####[address] [address] Eosinophils/100 WBC (Bld) 0.2 % Normal 0.0-8.0 [facility] Comment on above: Order Comment: Order Added by Discern Expert. Performed By: #### 1 4416457, 6682466, 2001580, 5358712 ####[address] [address] Eosinophils/Leukocyt es Auto (Bld) [Pure # fraction] 0.0 E9/L Normal 0.0-0.5 [facility] Comment on above: Order Comment: Order Added by Discern Expert. Performed By: #### 1 0151667, 4750882, 5378581, 4198569 ####[address] [address] Lymphocytes/100 WBC (Bld) 13.3 % Low 14.0-50.0 [facility] Comment on above: Order Comment: Order Added by Discern Expert. Performed By: #### 1 6808119, 4845623, 2399089, 3649776 ####[address] [place] [address] Lymphocytes/Leukocyt es Auto (Bld) [Pure # fraction] 1.8 E9/L Normal 1.0-4.0 [facility] Comment on above: Order Comment: Order Added by Discern Expert. Performed By: #### 1 9398043, 6776565, 2151563, 2647137 ####[address] [address] Monocytes/100 WBC (Bld) 10.0 % Normal 4.0-14.0 [facility] Comment on above: Order Comment: Order Added by Discern Expert. Performed By: #### 1 0362408, 9245095, 9297811, 5276376 ####[address] [address] Monocytes/Leukocytes Auto (Bld) [Pure # fraction] 1.3 E9/L High 0.2-1.0 [facility] Comment on above: Order Comment: Order Added by Discern Expert. Performed By: #### 1 3856712, 4990649, 9194009, 0013882 ####[address] [address] Neutrophils/100 WBC (Bld) 76.3 % High 36.0-75.0 [facility] Comment on above: Order Comment: Order Added by Discern Expert. Performed By: #### 1 5844901, 9198026, 0161193, 7254207 ####[address] [address] Neutrophils/Leukocyt es Auto (Bld) [Pure # fraction] 10.2 E9/L High 2.0-7.5 [facility] Comment on above: Order Comment: Order Added by Discern Expert. Performed By: #### 1 0542253, 8070889, 6499292, 4079805 ####[address] [address] BMPon 08-14-2023 Anion gap [Moles/Vol] 10 mmol/L Normal 6-16 [facility] Comment on above: Performed By: #### 1 6485644, 6324432, 9732631, 1247215 ####[facility] [address] [facility] [place] [place] [address] Calcium [Mass/Vol] 8.2 mg/dL Low 8.9-11.1 [facility] Comment on above: Performed By: #### 1 7515701, 5379252, 5349974, 9792366 ####[facility] [address]Ns[address] [place] [place] [address] Chloride [Moles/Vol] 105 mmol/L Normal 101-111 [facility] Comment on above: Performed By: #### 1 0378792, 9169403, 0847115, 5472529 ####[facility] [address] [place] [address] CO2 [Moles/Vol] 23 mmol/L Normal 21-31 [facility] Comment on above: Performed By: #### 1 5825864, 3410510, 6766436, 5062396 ####[facility] [address] [facility] [place] [address] Creatinine [Mass/Vol] 0.7 mg/dL Normal 0.5-1.3 [facility] Comment on above: Performed By: #### 1 4925318, 0574079, 7416506, 2517067 ####[facility] [address] [facility] [place] [address] Glucose [Mass/Vol] 266 mg/dL High 55-199 [facility] Comment on above: Result Comment: If t his glucose result represents a fasting glucose, interpretation should refer to the following reference range: 55-99 mg/dL Performed By: #### 1 0990984, 2607008, 3356265, 3187399 ####[facility] [address] [place] [address] Potassium [Moles/Vol] 3.4 mmol/L Low 3.5-5.3 [facility] Comment on above: Performed By: #### 1 0750260, 3059730, 6864183, 2973237 ####[facility] [address] [place] [address] Sodium [Moles/Vol] 135 mmol/L Normal 135-145 [facility] Comment on above: Performed By: #### 1 7234013, 3273226, 8663639, 1831025 ####[facility] [address] [place] [address] Urea nitrogen [Mass/Vol] 13 mg/dL Normal 5-21 [facility] Comment on above: Performed By: #### 1 8119167, 2101766, 5168797, 8645638 ####[place] [address] [place] [address]957 Urea nitrogen/Creatinine [Mass ratio] 19 No Units Normal 10-20 [facility] Comment on above: Performed By: #### 1 6521475, 4082459, 7249833, 4215582 ####[place] [address] [place] [address] CBC w/ Auto Diffon 3 Erythrocyte distribution width (RBC) [Ratio] 15.0 % High 10.9-14.2 [facility] Comment on above: Performed By: #### 1 6969268, 4358681, 4086419, 4496591 ####[place] [address] [place] [address] Hematocrit (Bld) [Volume fraction] 41.0 % Normal 37.7-49.0 [facility] Comment on above: Performed By: #### 1 1487041, 7400260, 2923013, 8878354 ####[place] [address] [place] [address] Hemoglobin (Bld) [Mass/Vol] 13.7 g/dL Normal 13.5-17.5 [facility] Comment on above: Performed By: #### 1 8071823, 9918072, 1364441, 3125409 ####[place] [address] [place] [address] MCH (RBC) [Entitic mass] 28.0 pg Normal 27.0-34.0 [facility] Comment on above: Performed By: #### 1 4411436, 0476685, 1615586, 3023244 ####[facility] [address] [place] [address] MCHC (RBC) [Mass/Vol] 33.4 g/dL Normal 31.4-36.0 [facility] Comment on above: Performed By: #### 1 9333261, 2163235, 5480082, 3527385 ####[place] [address] [place] [address] MCV (RBC) [Entitic vol] 83.8 fL Normal 80.0-100.0 [facility] Comment on above: Performed By: #### 1 9244464, 5193983, 7026103, 4261792 ####[place] [address] Platelet mean volume (Bld) [Entitic vol] 7.2 fL Normal 6.4-10.8 [facility] Comment on above: Performed By: #### 1 4404246, 0948526, 8098785, 3466886 ####[address] [address] Platelets (Bld) [#/Vol] 289.0 E9/L Normal 150.0-500. 0 [facility] Comment on above: Performed By: #### 1 9035930, 4346716, 5968661, 4057788 ####[address] [address] RBC (Bld) [#/Vol] 4.9 E12/L Normal 4.3-5.9 [facility] Comment on above: Performed By: #### 1 8886517, 3394266, 7130023, 4931925 ####[address] [address] WBC corrected for nucl RBC Auto (Bld) [#/Vol] 13.3 E9/L High 4.0-11.0 [facility] Comment on above: Performed By: #### 1 6417592, 3640252, 6508834, 6134981 ####[address] [address] [address] Abdomen/Pelvis w/ Contras ton 08-14-2023 CT [...] 17 cm. The hernia extends outside the aqpak-jh-vifp is an incompletely imaged on the current [...] 300 Contrast amount in ml's: 100 Normal [facility] Capillary Glucose POCon Glucose [Mass/Vol] 231 mg/dL High [facility] Comment on above: Result Comment: Tisha didier Meter Performed By: #### 2 44632798 ####[facility] [address] [place] [address] Glucose [Mass/Vol] 231 mg/dL High [facility] Comment on above: Result Comment: Tisha didier Meter Performed By: #### 2 85070488 ####[facility] [address] [place] [address] ED Clinical Summaryon 2022 ED Clinical Summary (Inserted Image. Angella ble to display) [place] [id number] ED Clinical Summary Person Information Name: CHRISTIAN SHELBY [facility] Age: 47 Years : 1975 Sex: Male Language: Sri Lankan PCP: Baljit Bryant DO Marital Status: Phone: [phone] MRN: [id number] Visit Id: Visit Reason: Nausea; Abdominal pain; [...] 00:27:35 Patient Care Request 08/14/2023 03:46:42 ADDRESS: [address] [place] [address] [place] [id number] PHYS DOC NOTES: MEDICAL INFORMATION: Prescriptions Given: PATIENT EDUCATION INFORMATION: Instructions: Follow up: DIAGNOSIS: 1:Abdominal hernia Normal [facility] ED Patient Education Noteon 08-14-2023 ED Patient Education Note Normal [facility] ED Patient Summaryon 023 ED Patient Summary (Inserted Image. Angella ble to display) [place] [id number] Patient Discharge Instructions Person Information Name: CHRISTIAN SHELBY Age: 47 Years Arrival Date: 08/13/2023 18:32:38 Discharge Diagnosis: 1:Abdominal hernia Primary Care Physician: Baljit Bryant DO Provider Information Primary Provider: Joshua Starr DO Advanced Environmental Education Specialist:Baljit Myoer PA-C The exam and treatment you received in the Emergency Department were for an urgent problem and are not intended as complete care. It is important that you follow up with a doctor, nurse practitioner, or physician?s assistant guest services manager for ongoing care. If your symptoms become [...] opioids can be used to help relieve aaimqmoy-ds-qrcwtu pain and are often prescribed following a [...] be struggling with addiction, tell your health floor care technician and ask for guidance or call [facility]?S [employer] Helpline at [phone]. h Source: [place] Department of Health and Human Services/Center for Disease Control & Prevention [facility] Medications Given: Medication Dose Route S (more content not included)... Normal [facility] Inpatient Patient Summaryon 08-14-2023 Inpatient Patient [...] Diagnostic Test Results None Pharmacy Information Other: [facility] New Follow Up Appointments after Discharge Follow Up with trauma clinic When: Only if needed Comments: Please call to make follow up appointment if you have questions or concerns. Our office has placed a referral to the bariatric clinic at [facility], if you do not hear from [facility] please contact this office and we can help facilitate scheduling an appointment. Where: [address] [place] [address] 3, second floor, [address] [place] [address]- [phone] Medications What How Much When Instructions Next [...] (08/14/23 06:46:00) Glucose Lvl: 266 mg/dL High (08/14/23:46:00) RBC: 4.9 E12/L (08/14/23:46:00) BUN: 13 mg/dL (08/14/23 06:46:00) HGB: 13.7 gm/dL (08/14/23:46:00) Creatinine: 0.7 mg/dL (08/14/23:46:00) Hct: 41 % [...] the mu (more content not included)... Normal [facility] Insurance Correspondence Off iceon 08-14-2023 Insurance Correspondence Office [id number]#1.00TIFF Normal [facility] Insurance Correspondence Office [id number]#1.00TIFF Normal [facility] Lactic Acidon 08-14-2023 Lactate [Mass/Vol] 1.1 mmol/L Normal 0.5-2.2 [facility] Comment on above: Performed By: #### 2 904508 ####[facility] [address] [place] [address] eGFRon 08-14-2023 GFR/1.73 sq M.predicted among non-blacks MDRD (S/P/Bld) [Vol rate/Area] 114 mL/min/1.73 m2 Normal >=59 [facility] Comment on above: Order Comment: Order added by Discern Expert. Result Comment: Physiotherapy Assistant dawson kidney disease could be indicated at eGFR's of less than 60 mL/min/1.73m2. Kidney failure is indicated at less than 15 mL/min/1.73m2. Performed By: #### 1 8214932, 1523939, 5369371, 5670677 ####[facility] [address] [place] [address] Auto Diffon 08-13-2023 Basophils/100 WBC (Bld) 0.1 % Normal 0.0-2.0 [facility] Comment on above: Order Comment: Order Added by Discern Expert. Performed By: #### 2 513860, 62298328, 7451711, 6391856, 34832640, 7885309, 3290420, 2639396 ####[facility] [address] [place] [address] Basophils/Leukocytes Auto (Bld) [Pure # fraction] 0.0 E9/L Normal 0.0-0.2 [facility] Comment on above: Order Comment: Order Added by Discern Expert. Performed By: #### 2 515083, 99180530, 5949613, 0128467, 49966780, 3257956, 2579541, 5406341 ####[place] [address] [place] [address] Eosinophils/100 WBC (Bld) 0.1 % Normal 0.0-8.0 [facility] Comment on above: Order Comment: Order Added by Discern Expert. Performed By: #### 2 188609, 19249047, 7047443, 5904932, 09267991, 4044613, 8850636, 5107919 ####[address] [address] Eosinophils/Leukocyt es Auto (Bld) [Pure # fraction] 0.0 E9/L Normal 0.0-0.5 [facility] Comment on above: Order Comment: Order Added by Discern Expert. Performed By: #### 2 087302, 82612399, 8173293, 8039717, 67754403, 0549471, 4655586, 7260364 ####[address] [address] Lymphocytes/100 WBC (Bld) 10.7 % Low 14.0-50.0 [facility] Comment on above: Order Comment: Order Added by Discern Expert. Performed By: #### 2 367672, 18295724, 1763167, 2460181, 45885410, 6297427, 7661001, 6085280 ####[place] [address] [place] [address] Lymphocytes/Leukocyt es Auto (Bld) [Pure # fraction] 1.7 E9/L Normal 1.0-4.0 [facility] Comment on above: Order Comment: Order Added by Discern Expert. Performed By: #### 2 943992, 34540036, 6689442, 6316401, 16586824, 9026793, 7254423, 2919486 ####[place] [address] [place] [address] Monocytes/100 WBC (Bld) 7.5 % Normal 4.0-14.0 [facility] Comment on above: Order Comment: Order Added by Discern Expert. Performed By: #### 2 836588, 15181562, 9090456, 0169729, 53383592, 7536513, 8331955, 6507395 ####[place] [address] [place] [address] Monocytes/Leukocytes Auto (Bld) [Pure # fraction] 1.2 E9/L High 0.2-1.0 [facility] Comment on above: Order Comment: Order Added by Discern Expert. Performed By: #### 2 373090, 32328427, 3719568, 8243010, 38468021, 8455644, 8115922, 9303823 ####[place] [address] [place] [address] Neutrophils/100 WBC (Bld) 81.6 % High 36.0-75.0 [facility] Comment on above: Order Comment: Order Added by Discern Expert. Performed By: #### 2 749104, 96875930, 5167652, 1653029, 65219740, 4618786, 0418794, 2571966 ####[facility] [address] [place] [address] Neutrophils/Leukocyt es Auto (Bld) [Pure # fraction] 12.8 E9/L High 2.0-7.5 [facility] Comment on above: Order Comment: Order Added by Discern Expert. Performed By: #### 2 698823, 88515323, 2338234, 7250939, 37541679, 8434224, 5040153, 9100044 ####[facility] [address] [place] [address] BMP 08-13-2023 Creatinine [Mass/Vol] 0.9 mg/dL Normal 0.5-1.3 [facility] Comment on above: Performed By: #### 2 031248, 24579548, 2654359, 3383887, 26601684, 4354009, 9988088, 2482100 ####[facility] [address] [place] [address] Urea nitrogen [Mass/Vol] 12 mg/dL Normal 5-21 [facility] Comment on above: Performed By: #### 2 432387, 49514175, 5162742, 8396588, 76005053, 7116835, 1748612, 5211283 ####[facility] [address] [place] [address] Urea nitrogen/Creatinine [Mass ratio] 13 No Units Normal 10-20 [facility] Comment on above: Performed By: #### 2 126278, 34720102, 9902592, 0573107, 55526759, 1084998, 3810785, 0478713 ####[facility] [address] [place] [address] Anion gap [Moles/Vol] 21 mmol/L High 6-16 [facility] Comment on above: Performed By: #### 2 597946, 36896880, 6737371, 4255124, 43364849, 2527593, 7016166, 7594020 ####[facility] [address] [place] [address] Calcium [Mass/Vol] 9.1 mg/dL Normal 8.9-11.1 [facility] Comment on above: Performed By: #### 2 322341, 88569848, 9802787, 5811214, 37313620, 6753830, 6422592, 9414097 ####[facility] [address] [place] [address] Chloride [Moles/Vol] 98 mmol/L Low 101-111 [facility] Comment on above: Performed By: #### 2 722391, 32762578, 3303822, 8103221, 91827972, 3221734, 9756906, 4259877 ####[facility] [address] [place] [address] CO2 [Moles/Vol] 17 mmol/L Low 21-31 [facility] Comment on above: Performed By: #### 2 811670, 18565739, 1551410, 3769717, 87655165, 4815166, 9932547, 7663009 ####[facility] [address] [place] [address] Glucose [Mass/Vol] 321 mg/dL High 55-199 [facility] Comment on above: Result Comment: If t his glucose result represents a fasting glucose, interpretation should refer to the following reference range: 55-99 mg/dL Performed By: #### 2 171870, 35904701, 5233943, 0310233, 09417902, 5602743, 4258037, 3366600 ####[facility] [address] [place] [address] Potassium [Moles/Vol] 3.9 mmol/L Normal 3.5-5.3 [facility] Comment on above: Performed By: #### 2 132349, 17950621, 8627670, 5389023, 99821237, 1110076, 4423021, 5259903 ####[facility] [address] [place] [address] Sodium [Moles/Vol] 132 mmol/L Low 135-145 [facility] Comment on above: Performed By: #### 2 069248, 85950296, 9700101, 8394545, 84719664, 8202969, 5552504, 0225980 ####[facility] [address] [place] [address] BOHBon 08-13-2023 Beta hydroxybutyrate [Moles/Vol] 2.78 mmol/L High 0.02-0.27 [facility] Comment on above: Performed By: #### 2 54652969 ####[facility] [address] [place] [address] Bld Gas Venon 08-13-2023 Allens Test Not Applicable Normal [facility] Comment on above: Performed By: #### 1 0674051 ####[facility] [address] [place] [address] Drawn by lab Invalid Interpretation Code [facility] Comment on above: Performed By: #### 1 9184117 ####[facility] [address] [place] [address] FIO2 BG 21 Invalid Interpretation Code [facility] Comment on above: Performed By: #### 1 9914763 ####[facility] [address] [place] [address] pCO2 Myron 31.3 mmHg Low 38.0-50.0 [facility] Comment on above: Performed By: #### 1 6101377 ####[address] [address] pH Myron 7.434 High 7.320-7.43 0 [facility] Comment on above: Performed By: #### 1 0386559 ####[address] [address] Sample Site OTHER Normal [facility] Comment on above: Performed By: #### 1 9832017 ####[address] [address] Sample Type Venous Draw Normal [facility] Comment on above: Performed By: #### 1 9586348 ####[facility] [address] [place] [address] CBC w/ Auto Diffon 3 Erythrocyte distribution width (RBC) [Ratio] 15.2 % High 10.9-14.2 [facility] Comment on above: Performed By: #### 2 880950, 24405295, 0838582, 2248748, 66591477, 5962773, 2381995, 3474673 ####[facility] [address] [place] [address] Hematocrit (Bld) [Volume fraction] 49.5 % High 37.7-49.0 [facility] Comment on above: Performed By: #### 2 925020, 15895698, 5773683, 0062692, 02937668, 7455587, 0108596, 1210545 ####[address] [address] Hemoglobin (Bld) [Mass/Vol] 15.8 g/dL Normal 13.5-17.5 [facility] Comment on above: Performed By: #### 2 171610, 68028247, 6768004, 0680425, 70249540, 7366069, 7278236, 1565983 ####[address] [address] MCH (RBC) [Entitic mass] 27.1 pg Normal 27.0-34.0 [facility] Comment on above: Performed By: #### 2 609071, 11865641, 7514963, 0182540, 71829396, 0772700, 8697435, 4370088 ####[address] [address] MCHC (RBC) [Mass/Vol] 32.0 g/dL Normal 31.4-36.0 [facility] Comment on above: Performed By: #### 2 312709, 45185753, 4192473, 9412049, 44805698, 4830798, 9721659, 7315541 ####[address] [address] MCV (RBC) [Entitic vol] 84.8 fL Normal 80.0-100.0 [facility] Comment on above: Performed By: #### 2 721811, 85283399, 3267470, 2595114, 30109227, 6819245, 8312443, 5085008 ####[address] [address] Platelet mean volume (Bld) [Entitic vol] 7.5 fL Normal 6.4-10.8 [facility] Comment on above: Performed By: #### 2 109487, 59306000, 1003430, 3679711, 96760990, 4862000, 7643271, 2738544 ####[facility] [address] [place] [address] Platelets (Bld) [#/Vol] 361.0 E9/L Normal 150.0-500. 0 [facility] Comment on above: Performed By: #### 2 731650, 82883838, 9984293, 8111169, 28108396, 9433541, 8528873, 5995965 ####[facility] [address] [place] [address] RBC (Bld) [#/Vol] 5.8 E12/L Normal 4.3-5.9 [facility] Comment on above: Performed By: #### 2 199566, 69921104, 4255733, 9667103, 25230795, 2053999, 7754814, 0966496 ####[facility] [address] [place] [address] WBC corrected for nucl RBC Auto (Bld) [#/Vol] 15.6 E9/L High 4.0-11.0 [facility] Comment on above: Performed By: #### 2 743571, 36310383, 1563048, 6341250, 83030028, 6576852, 3110499, 8227306 ####[facility] [address] [place] [address] Capillary Glucose POCon Glucose [Mass/Vol] 277 mg/dL High 55-99 [facility] Comment on above: Result Comment: Tisha didier Meter Performed By: #### 2 41687897 ####[facility] [address] [place] [address] Consent for Treatmenton Consent for Treatment [id number]#1.00TIFF Normal [facility] ED Note-Physicianon 08-13-20 ED Note-Physician Patient [...] under her service for further monitoring. Normal [facility] Comment on above: Result Comment: Elec [...] Diagnostic Results No qualifying data available. Normal [facility] Comment on above: Result Comment: Elec tronically Signed By: Baljit Moyer PA-C\.br\Date and Time Signed: 08/13/23 19:17 EST\.br\Electronically Co-Signed By: Joshua Starr DO\.br\Date and Time Co-Signed: 08/13/23 20:38 EST Hep Func Panelon 08-13-2023 Albumin [Mass/Vol] 4.1 g/dL Normal 3.3-5.0 [facility] Comment on above: Performed By: #### 2 536572, 45725077, 8967748, 8812839, 12651666, 7862517, 2283654, 9665780 ####[facility] [address] [place] [address] Albumin/Globulin (S) [Mass conc ratio] 0.9 Low 1.1-2.2 [facility] Comment on above: Performed By: #### 2 590520, 32707493, 8762920, 2175261, 77860600, 0851334, 8126342, 5684584 ####[facility] [address] [place] [address] ALP [Catalytic activity/Vol] 73 Int._Unit/L Normal 21-98 [facility] Comment on above: Performed By: #### 2 289361, 77365169, 4348183, 4936926, 88992486, 4350888, 8472716, 9892590 ####[facility] [address] [place] [address] ALT No additional P-5'-P [Catalytic activity/Vol] 36 Int._Unit/L Normal 6-46 [facility] Comment on above: Performed By: #### 2 321211, 76986105, 7238172, 2435953, 95777962, 7015911, 9050764, 6063362 ####[facility] [address] [place] [address] AST [Catalytic activity/Vol] 28 Int._Unit/L Normal 5-43 [facility] Comment on above: Performed By: #### 2 726327, 76950196, 0819766, 6821433, 70571171, 0616513, 9348336, 6461555 ####[facility] [address] [place] 6194957 Bilirubin [Mass/Vol] 0.7 mg/dL Normal 0.0-1.1 [facility] Comment on above: Performed By: #### 2 070311, 65122798, 0166568, 5118935, 63493104, 7589421, 1948996, 0560594 ####[facility] [address] [place] [address] Bilirubin.direct [Mass/Vol] 0.1 mg/dL Normal 0.1-0.4 [facility] Comment on above: Performed By: #### 2 279295, 37898556, 7981253, 8831475, 45778185, 6039654, 1404670, 0590719 ####[facility] [address] [place], [place] [address] Bilirubin.indirect [Mass or moles/Vol] 0.6 mg/dL Normal 0.1-0.9 [facility] Comment on above: Performed By: #### 2 834056, 95811424, 0594130, 9279507, 39908489, 0077719, 6792828, 6741324 ####[facility] [address] [place] [address] Globulin (S) [Mass/Vol] 4.6 g/dL High 1.4-4.0 [facility] Comment on above: Performed By: #### 2 944947, 86691682, 3582404, 6335869, 61108303, 2924118, 8416101, 0350892 ####[facility] [address] [place] [address] Protein [Mass/Vol] 8.7 g/dL High 6.0-7.8 [facility] Comment on above: Performed By: #### 2 970478, 73227919, 8568767, 2441797, 37963761, 5195657, 4655863, 9170406 ####[facility] [address] [place] [address] Lactic Acidon 08-13-2023 Lactate [Mass/Vol] 2.7 mmol/L High 0.5-2.2 [facility] Comment on above: Order Comment: Order added by EKS Rule. (FT_LACTIC_ACID_REFLEX) Adds reflex Lactic Acid 4 hours after initial if result is greater than or equal to 2.0. Performed By: #### 2 115054 ####[place] [address] [place] [address] Lactate [Mass/Vol] 3.2 mmol/L High 0.5-2.2 [facility] Comment on above: Performed By: #### 2 [id number], [id number], [id number], [id number], [id number], [id number], [id number], [id number] ####[facility] [address] [place] [address] Lipase Levelon 08-13-2023 Lipase [Catalytic activity/Vol] 26 U/L Normal 13-58 [facility] Comment on above: Performed By: #### 2 [id number], [id number], [id number], [id number], [id number], [id number], [id number], [id number] ####[facility] [address] [place] [address] PT & PTTon 08-13-2023 aPTT Coag (PPP) [Time] 31.3 second(s) Normal 25.1-36.5 [facility] Comment on above: Result Comment: Para [...] the same coagulation reagent and instrumentation as [facility]. Currently there are no coagulation studies available worldwide for children to 14 days, and no normal ranges. Heparin therapeutic range (represented by Anti-Factor Xa activity of 0.2 - 0.4 U/mL) corresponds to PTT of 56.6 - 109.0 sec. Performed By: #### 2 [id number], [id number], [id number], [id number], [id number], [id number], [id number], [id number] ####[facility] [address] [place] [address] INR Coag (PPP) [Relative time] 1.0 {INR} Invalid Interpretation Code [facility] Comment on above: Result Comment: INR results are specifically intended to assess patients stabilized on long-term Anticoagulation therapy suggested INR?s ?Less Intensive Anticoagulation? 2.0 ? 3.0 Conventional Range 3.0 ? 4.5 Performed By: #### 2 [id number], [id number], [id number], [id number], [id number], [id number], 1117750, [id number] ####[facility] [address] [place] [address] PT Coag (PPP) [Time] 11.4 second(s) Normal 9.4-12.5 [facility] Comment on above: Result Comment: 15 [...] the same coagulation reagent and instrumentation as [facility]. Currently there are no coagulation studies available worldwide for children to 14 days, and no normal ranges. Performed By: #### 2 [id number], [id number], [id number], [id number], [id number], [id number], [id number], [id number] ####[facility] [address] [place] [address] RAD - Preliminary Cat Scan R eporton 08-13-2023 RAD - Preliminary Cat Scan Report [id number] Normal [facility] eGFRon 08-13-2023 GFR/1.73 sq M.predicted among non-blacks MDRD (S/P/Bld) [Vol rate/Area] 106 mL/min/1.73 m2 Normal >=59 [facility] Comment on above: Order Comment: Order added by Discern Expert. Result Comment: Physiotherapy Assistant dawson kidney disease could be indicated at eGFR's of less than 60 mL/min/1.73m2. Kidney failure is indicated at less than 15 mL/min/1.73m2. Performed By: #### 2 [id number], [id number], [id number], [id number], [id number], 5070819, 0435614, [id number] ####[facility] [address] [place] [address] CT CHEST W CONon 12-26-2022 CT CHEST [...] by: LAURA FISH Date: 2022-12-26 08:31 Normal [facility] CT ABD/PELV W CONon 11-28-19 [...] visualized due to being outside of the klmid-af-oikr. 2. Hepatic steatosis and hepatomegaly. 3. Enlarged [...] by: DARIUSZ VICENTE Date: 2022-11-27 10:31 Normal [facility] GLYCOHEMOGLOBIN A1Con 2022 ADA RECOMMENDATION SEE BELOW Normal [facility] Comment on above: Result Comment: ADA RECOMMENDED LIMIT 4.0 - 6.0 ADA THERAPEUTIC TARGET < 7.0 ACTION SUGGESTED > 7.0 Performed By: #### A 1C #### [facility] [address] [address] [address] Coco Rao Glucose [Mass/Vol] 180 mg/dL Normal [facility] Comment on above: Performed By: #### A 1C #### [facility] [address] [address] [address] Coco Rao HbA1c (Bld) [Mass fraction] 7.9 % Critically high 4.5-6.2 [facility] Comment on above: Performed By: #### A 1C #### [facility] [address] [address] [address] Coco Rao PROF 14(COMP METB)on 023 Albumin [Mass/Vol] 3.0 g/dL Critically low 3.4-5.0 Th [facility] Comment on above: Performed By: #### C MP #### [facility] [address] [address] [address] Coco Rao Albumin/Globulin [Mass ratio] 0.6 {ratio} Normal [facility] Comment on above: Performed By: #### C MP #### [facility] [address] [address] [address] Coco Rao ALP [Catalytic activity/Vol] 94 U/L Normal 46-116 [facility] Comment on above: Performed By: #### C MP #### [facility] [address] [place] [address] Dr. Coco Rao ALT [Catalytic activity/Vol] 26 U/L Normal 16-63 [facility] Comment on above: Performed By: #### C MP #### [facility] [address] [place] [address] Dr. Coco Rao Anion gap [Moles/Vol] 14.3 mmol/L Normal [facility] Comment on above: Performed By: #### C MP #### [facility] [address] [place] [address] Dr. Coco Rao AST [Catalytic activity/Vol] 15 U/L Normal 15-37 [facility] Comment on above: Performed By: #### C MP #### [facility] [address] [place] [address] Dr. Coco Rao Bilirubin [Mass/Vol] 0.2 mg/dL Normal 0.2-1.0 [facility] Comment on above: Performed By: #### C MP #### [facility] [address] [place] [address] Dr. Coco Rao Calcium [Mass/Vol] 8.4 mg/dL Critically low 8.5-10.1 Th [facility] Comment on above: Performed By: #### C MP #### [facility] [address] [place] [address] Dr. Coco Rao Chloride [Moles/Vol] 101 mmol/L Normal 98-107 [facility] Comment on above: Performed By: #### C MP #### [facility] [address] [place] [address] Dr. Coco Rao CO2 [Moles/Vol] 25.7 mmol/L Normal 21.0-32.0 [facility] Comment on above: Performed By: #### C MP #### [facility] [address] [address] [address] Coco Rao Creatinine [Mass/Vol] 0.78 mg/dL Normal 0.70-1.30 [facility] Comment on above: Performed By: #### C MP #### [facility] [address] [address] [address] Coco Rao EGFR-AF [place]IZ[place] >60 Normal >=60 [facility] Comment on above: Performed By: #### C MP #### [facility] [address] [place] [address] Dr. Coco Rao EGFR-NON AF CITIZ[place] >60 Normal >=60 [facility] Comment on above: Performed By: #### C MP #### [facility] [address] [place] [address] Dr. Coco Rao Globulin (S) [Mass/Vol] 5.2 g/dL Normal [facility] Comment on above: Performed By: #### C MP #### [facility] [address] [place] [address] Dr. Coco Rao Glucose [Mass/Vol] 134 mg/dL Critically high 74-106 [facility] Comment on above: Performed By: #### C MP #### [facility] [address] [place] [address] Dr. Coco Rao Potassium [Moles/Vol] 4.0 mmol/L Normal 3.5-5.1 [facility] Comment on above: Performed By: #### C MP #### [facility] [address] [place] [address] Dr. Coco Rao Protein [Mass/Vol] 8.2 g/dL Normal 6.4-8.2 [facility] Comment on above: Performed By: #### C MP #### [facility] [address] [place] [address] Dr. Coco Rao Sodium [Moles/Vol] 137 mmol/L Normal 136-145 [facility] Comment on above: Performed By: #### C MP #### [facility] [address] [place] [address] Dr. oCco Rao Urea nitrogen [Mass/Vol] 10.0 mg/dL Normal 7.0-18.0 [facility] Comment on above: Performed By: #### C MP #### [facility] [address] [place] [address] Dr. Coco Rao Urea nitrogen/Creatinine [Mass ratio] 12.8 mg/mg Normal [facility] Comment on above: Performed By: #### C MP #### [facility] [address] [place] [address] Dr. Coco Rao CULTURE WOUNDon 11-02-2022 CULTURE WOUND Isolate 1 Streptococcus constellatus Moderate growth of ORGANISM 1 Streptococcus constellatus ANTIBIOTIC M.I.C RX STATUS Benzylpenicillin <=0.06 S F Ampicillin <=0.25 S F Cefotaxime <=0.12 S F Ceftriaxone 0.25 S F Erythromycin >=8 R F Clindamycin >=1 R F Linezolid <=2 S F Vancomycin 0.5 S F Tetracycline >=16 R F Normal [facility] Comment on above: Performed By: #### W OUNDCX #### [facility] [address] [place] [address] Dr. Coco Rao CULTURE WOUNDon 06-20-2022 CULTURE [...] R F Oxacillin >=4 R F Normal [facility] Comment on above: Performed By: #### W OUNDCX #### [facility] [address] [place] [address] Dr. Coco Rao MICROALBUMIN URINEon 022 Albumin, Urine 17.9 ug/mL Normal Not Estab. [facility] Comment on above: Performed By: #### M ALBLC #### [facility] [address] [place] [address] Dr. Coco Rao CBC AUTO DIFFon 05-10-2022 BASO # 0.1 103/ul Normal 0.0-0.1 [facility] Comment on above: Performed By: #### W OUNDCX #### [facility] [address] [place] [address] Dr. Coco Rao Basophils/100 WBC (Bld) 0.8 % Normal 0.2-2.0 [facility] Comment on above: Performed By: #### W OUNDCX #### [facility] [address] [place] [address] Dr. oCco Rao EO # 0.3 103/ul Normal 0.0-0.7 [facility] Comment on above: Performed By: #### W OUNDCX #### [facility] [address] [place] [address] Dr. Coco Rao Eosinophils/100 WBC (Bld) 3.0 % Normal 0.9-7.0 [facility] Comment on above: Performed By: #### W OUNDCX #### [facility] [address] [place] [address] Dr. Coco Rao Erythrocyte distribution width (RBC) [Ratio] 15.2 % Critically high 11.0-15.0 [facility] Comment on above: Performed By: #### W OUNDCX #### [facility] [address] [place] [address] Dr. Coco Rao Hematocrit (Bld) [Volume fraction] 44.7 % Normal 42.0-54.0 [facility] Comment on above: Performed By: #### W OUNDCX #### [facility] [address] [place] [address] Dr. Coco Rao Hemoglobin (Bld) [Mass/Vol] 14.2 g/dL Normal 14.0-18.0 [facility] Comment on above: Performed By: #### W OUNDCX #### [facility] [address] [place] [address] Dr. Coco Rao IG # 0.04 10e3/ul Critically high 0.00-0.03 [facility] Comment on above: Performed By: #### W OUNDCX #### [facility] [address] [place] [address] Dr. Coco Rao IG % 0.4 % Normal 0.0-0.5 [facility] Comment on above: Performed By: #### W OUNDCX #### [facility] [address] [place] [address] Dr. Coco Rao LYMPH # 3.3 103/ul Normal 1.2-3.8 [facility] Comment on above: Performed By: #### W OUNDCX #### [facility] [address] [place] [address] Dr. Coco Rao Lymphocytes/100 WBC (Bld) 30.5 % Normal 20.5-60.0 [facility] Comment on above: Performed By: #### W OUNDCX #### [facility] [address] [place] [address] Dr. Coco Rao MANUAL DIFF REQ NO Normal [facility] Comment on above: Performed By: #### W OUNDCX #### [facility] [address] [place] [address] Dr. Coco Rao MCH (RBC) [Entitic mass] 26.9 pg Normal 25.9-34.0 [facility] Comment on above: Performed By: #### W OUNDCX #### [facility] [address] [place] [address] Dr. Coco Rao MCHC (RBC) [Mass/Vol] 31.8 g/dL Normal 29.9-35.2 [facility] Comment on above: Performed By: #### W OUNDCX #### [facility] [address] [place] [address] Dr. Coco Rao MCV (RBC) [Entitic vol] 84.7 fL Normal 80.0-94.0 [facility] Comment on above: Performed By: #### W OUNDCX #### [facility] [address] [place] [address] Dr. Coco Rao MONO # 1.0 103/ul Critically high 0.3-0.8 [facility] Comment on above: Performed By: #### W OUNDCX #### [facility] [address] [place] [address] Dr. Coco Rao Monocytes/100 WBC (Bld) 9.1 % Normal 1.7-12.0 [facility] Comment on above: Performed By: #### W OUNDCX #### [facility] [address] [place] [address] Dr. Coco Rao NEUT # 6.1 103/ul Normal 1.4-6.5 [facility] Comment on above: Performed By: #### W OUNDCX #### [facility] [address] [place] [address] Dr. Coco Rao Neutrophils/100 WBC (Bld) 56.2 % Normal 43.0-75.0 [facility] Comment on above: Performed By: #### W OUNDCX #### [facility] [address] [place] [address] Dr. Coco Rao Platelet mean volume (Bld) [Entitic vol] 9.3 fL Critically low 9.5-13.5 [facility] Comment on above: Performed By: #### W OUNDCX #### [facility] [address] [place] [address] Dr. Coco Rao PLT 372 103/ul Normal 150-450 [facility] Comment on above: Performed By: #### W OUNDCX #### [facility] [address] [place] [address] Dr. Cooc Rao RBC 5.28 106/ul Normal 4.70-6.10 [facility] Comment on above: Performed By: #### W OUNDCX #### [facility] [address] [place] [address] Dr. Coco Rao WBC 10.8 103/ul Normal 4.0-11.0 [facility] Comment on above: Performed By: #### W OUNDCX #### [facility] [address] [place] [address] Dr. Coco Rao FREE T4on 05-10-2022 Free T4 [Mass/Vol] 1.31 ng/dL Normal 0.76-1.46 [facility] Comment on above: Performed By: #### W OUNDCX #### [facility] [address] [place] [address] Dr. Coco Rao GLYCOHEMOGLOBIN A1Con 2021 ADA RECOMMENDATION SEE BELOW Normal [facility] Comment on above: Result Comment: ADA RECOMMENDED LIMIT 4.0 - 6.0 ADA THERAPEUTIC TARGET < 7.0 ACTION SUGGESTED > 7.0 Performed By: #### A 1C #### [facility] [address] [place] [address] Dr. Coco Rao Glucose [Mass/Vol] 232 mg/dL Normal [facility] Comment on above: Performed By: #### A 1C #### [facility] [address] [place] [address] Dr. Coco aRo HbA1c (Bld) [Mass fraction] 9.7 % Critically high 4.5-6.2 [facility] Comment on above: Performed By: #### A 1C #### [facility] [address] [place] [address] Dr. Coco Rao LIPID PROFILEon 05-10-2022 CHOL-HDL RATIO NORM SEE BELOW Normal [facility] Comment on above: Result Comment: 3.3 - 4.4 LOW RISK 4.4 - 7.1 AVERAGE RISK 7.1 - 11.0 MODERATE RISK >11.0 HIGH RISK Performed By: #### C MP, LIPID, TSH #### [facility] [address] [place] [address] Dr. Coco Rao Cholesterol [Mass/Vol] 130 mg/dL Normal <=200 [facility] Comment on above: Performed By: #### C MP, LIPID, TSH #### [facility] [address] [place] [address] Dr. Coco Rao Cholesterol in HDL [Mass/Vol] 40 mg/dL Normal 40-60 [facility] Comment on above: Performed By: #### C MP, LIPID, TSH #### [facility] [address] [address] [address] Coco Rao Cholesterol in LDL [Mass/Vol] 66.0 mg/dL Normal [facility] Comment on above: Performed By: #### C MP, LIPID, TSH #### [facility] [address] [address] [address] Coco Rao Cholesterol.total/Ch olesterol in HDL [Mass ratio] 3.3 {ratio} Normal [facility] Comment on above: Performed By: #### C MP, LIPID, TSH #### [facility] [address] [place] [address] Dr. Coco Rao HDL NORMAL > or = 60 mg/dl - LO W CARDIOVASCULAR RISK <40 mg/dl - HIGH CARDIOVASCULAR RISK Normal [facility] Comment on above: Performed By: #### C MP, LIPID, TSH #### [facility] [address] [place] [address] Dr. Coco Rao LDL CALC NORMAL SEE BELOW Normal [facility] Comment on above: Result Comment: <100 mg/dl OPTIMAL 100 - 129 mg/dl NEAR OR ABOVE OPTIMAL 130 - 159 mg/dl BORDERLINE HIGH 160 - 189 mg/dl HIGH >190 mg/dl VERY HIGH Performed By: #### C MP, LIPID, TSH #### [facility] [address] [place] [address] Dr. Coco Rao Triglyceride [Mass/Vol] 120 mg/dL Normal <=150 [facility] Comment on above: Performed By: #### C MP, LIPID, TSH #### [facility] [address] [place] [address] Dr. Coco Rao VLDL CALC 24.0 mg/dL Normal [facility] Comment on above: Performed By: #### C MP, LIPID, TSH #### [facility] [address] [place] [address] Dr. Coco Rao PROF 14(COMP METB)on 022 Albumin [Mass/Vol] 3.0 g/dL Critically low 3.4-5.0 Th e [facility] Comment on above: Performed By: #### C MP, LIPID, TSH #### [facility] [address] [address] [address] Coco Rao Albumin/Globulin [Mass ratio] 0.5 {ratio} Normal [facility] Comment on above: Performed By: #### C MP, LIPID, TSH #### [facility] [address] [address] [address] Coco Rao ALP [Catalytic activity/Vol] 89 U/L Normal 46-116 [facility] Comment on above: Performed By: #### C MP, LIPID, TSH #### [facility] [address] [address] [address] Coco Rao ALT [Catalytic activity/Vol] 22 U/L Normal 16-63 [facility] Comment on above: Performed By: #### C MP, LIPID, TSH #### [facility] [address] [address] [address] Coco Rao Anion gap [Moles/Vol] 15.1 mmol/L Normal [facility] Comment on above: Performed By: #### C MP, LIPID, TSH #### [facility] [address] [address] [address] Coco Rao AST [Catalytic activity/Vol] 14 U/L Critically low 15-37 [facility] Comment on above: Performed By: #### C MP, LIPID, TSH #### [facility] [address] [address] [address] Coco Rao Bilirubin [Mass/Vol] 0.4 mg/dL Normal 0.2-1.0 [facility] Comment on above: Performed By: #### C MP, LIPID, TSH #### [facility] [address] [address] [address] Coco Rao Calcium [Mass/Vol] 8.6 mg/dL Normal 8.5-10.1 [facility] Comment on above: Performed By: #### C MP, LIPID, TSH #### [facility] [address] [address] [address] Coco Rao Chloride [Moles/Vol] 100 mmol/L Normal 98-107 [facility] Comment on above: Performed By: #### C MP, LIPID, TSH #### [facility] [address] [address] [address] Coco Rao CO2 [Moles/Vol] 23.5 mmol/L Normal 21.0-32.0 [facility] Comment on above: Performed By: #### C MP, LIPID, TSH #### [facility] [address] [address] [address] Coco Rao Creatinine [Mass/Vol] 0.74 mg/dL Normal 0.70-1.30 [facility] Comment on above: Performed By: #### C MP, LIPID, TSH #### [facility] [address] [address] [address] Coco Rao EGFR-AF [place]IZ[place] >60 Normal >=60 [facility] Comment on above: Performed By: #### C MP, LIPID, TSH #### [facility] [address] [address] [address] Coco Rao EGFR-NON AF [place]IZ[place] >60 Normal >=60 [facility] Comment on above: Performed By: #### C MP, LIPID, TSH #### [facility] [address] [address] [address] Coco Rao Globulin (S) [Mass/Vol] 5.7 g/dL Normal [facility] Comment on above: Performed By: #### C MP, LIPID, TSH #### [facility] [address] [address] [address] Coco Rao Glucose [Mass/Vol] 175 mg/dL Critically high 74-106 [facility] Comment on above: Performed By: #### C MP, LIPID, TSH #### [facility] [address] [address] [address] Coco Rao Potassium [Moles/Vol] 3.6 mmol/L Normal 3.5-5.1 [facility] Comment on above: Performed By: #### C MP, LIPID, TSH #### [facility] [address] [address] [address] Coco Rao Protein [Mass/Vol] 8.7 g/dL Critically high 6.4-8.2 [facility] Comment on above: Performed By: #### C MP, LIPID, TSH #### [facility] [facility] [address] [address] [address] Coco Rao Sodium [Moles/Vol] 135 mmol/L Critically low 136-145 Th [facility] Comment on above: Performed By: #### C MP, LIPID, TSH #### [facility] [address] [place] [address] Dr. Coco Rao Urea nitrogen [Mass/Vol] 13.0 mg/dL Normal 7.0-18.0 [facility] Comment on above: Performed By: #### C MP, LIPID, TSH #### [facility] [address] [place] [address] Dr. Coco Rao Urea nitrogen/Creatinine [Mass ratio] 17.6 mg/mg Normal [facility] Comment on above: Performed By: #### C MP, LIPID, TSH #### [facility] [address] [place] [address] Dr. Coco Rao TSHon 05-10-2022 TSH 1.025 uIU/mL Normal 0.358-3.74 0 [facility] Comment on above: Performed By: #### C MP, LIPID, TSH #### [facility] [address] [place] [address] Dr. Coco Rao UA RANDOM W/MICROSCOPICon BACTERIA NONE SEEN Normal NONE SEEN [facility] Comment on above: Performed By: #### U AMIC #### [facility] [address] [place] [address] Dr. Coco Rao Bilirubin Ql (U) Negative Normal NEGATIVE [facility] Comment on above: Performed By: #### U AMIC #### [facility] [address] [place] [address] Dr. Coco Rao CAST NONE SEEN Normal NONE SEEN [facility] Comment on above: Performed By: #### U AMIC #### [facility] [address] [place] [address] Dr. Coco Rao Clarity (U) CLEAR Normal CLEAR [facility] Comment on above: Performed By: #### U AMIC #### [facility] [address] [address] [address] Coco Rao Color (U) YELLOW Normal YELLOW [facility] Comment on above: Performed By: #### U AMIC #### [facility] [address] [place] [address] Dr. Coco Rao Crystals LM Nom (Urine sed) NONE SEEN Normal NONE SEEN [facility] Comment on above: Performed By: #### U AMIC #### [facility] [address] [address] [address] Coco Rao Epithelial cells LM Ql (Urine sed) FEW Abnormal NONE SEEN /RARE [facility] Comment on above: Performed By: #### U AMIC #### [facility] [address] [place] [address] Dr. Coco Rao Glucose Ql (U) 1000 mg/dl Abnormal NEGATIVE [facility] Comment on above: Performed By: #### U AMIC #### [facility] [address] [place] [address] Dr. Coco Rao Hemoglobin Ql (U) Negative Normal NEGATIVE [facility] Comment on above: Performed By: #### U AMIC #### [facility] [address] [place] [address] Dr. Coco Rao Ketones Ql (U) 15 mg/dl Abnormal NEGATIVE [facility] Comment on above: Performed By: #### U AMIC #### [facility] [address] [place] [address] Dr. Coco Rao LEUKOCYTES Negative Normal NEGATIVE [facility] Comment on above: Performed By: #### U AMIC #### [facility] [address] [place] [address] Dr. Coco Rao MUCOUS NONE SEEN Normal NONE SEEN [facility] Comment on above: Performed By: #### U AMIC #### [facility] [address] [place] [address] Dr. Coco Rao Nitrite Ql (U) Negative Normal NEGATIVE [facility] Comment on above: Performed By: #### U AMIC #### [facility] [address] [place] [address] Dr. Coco Rao pH (U) 6.0 [pH] Normal 5-9 [facility] Comment on above: Performed By: #### U AMIC #### [facility] [address] [place] [address] Dr. Coco Rao RBC NONE SEEN Abnormal 0-2 [facility] Comment on above: Performed By: #### U AMIC #### [facility] [address] [address] [address] Coco Rao SPEC GRAVITY 1.020 Normal 1.005-<=1. 025 [facility] Comment on above: Performed By: #### U AMIC #### [facility] [address] [place] [address] Dr. Coco Rao UA PROTEIN Negative Normal NEGATIVE/ TRACE [facility] Comment on above: Performed By: #### U AMIC #### [facility] [address] [place] [address] Dr. Coco Rao Urobilinogen Qn (U) 1.0 {Joce'U}/dL Normal 0.2 - 1. 0 [facility] Comment on above: Performed By: #### U AMIC #### [facility] [address] [place] [address] Dr. Coco Rao WBC NONE SEEN Normal NONE SEEN [facility] Comment on above: Performed By: #### U AMIC #### [facility] [address] [place] [address] Dr. Coco Rao Vital Signs Date Time Vital Sign Value Performing Clinician Facility 10-21-2024 16:40-0500 Body height 185.4 cm Joan Carrillo BATCH UNLOADER Work Phone: [facility] 10-21-2024 16:40-0500 Body mass index (BMI) [Ratio] 53.86 kg/m2 Joan Carrillo BATCH UNLOADER Work Phone: [facility] 10-21-2024 16:40-0500 Body temperature 98.6 [degF] Joan Carrillo BATCH UNLOADER Work Phone: [facility] 10-21-2024 16:40-0500 Body weight 185.16 kg oJan Reeshholz BATCH UNLOADER Work Phone: [facility] 10-21-2024 16:40-0500 Diastolic blood pressure 98 mm[Hg] Joan Aichholz BATCH UNLOADER Work Phone: [facility] 10-21-2024 16:40-0500 Heart rate 95 /min Joan Aichholz BATCH UNLOADER Work Phone: [facility] 10-21-2024 16:40-0500 SaO2% (BldA) [Mass fraction] 96 % Joan Aichholz BATCH UNLOADER Work Phone: [facility] 10-21-2024 16:40-0500 Systolic blood pressure 170 mm[Hg] Joan Aichholz BATCH UNLOADER Work Phone: [facility] 08-19-2024 16:07-0500 Body mass index (BMI) [Ratio] 53.09 kg/m2 Joan Aichholz BATCH UNLOADER Work Phone: [facility] 08-19-2024 16:07-0500 Body temperature 97.81 [degF] Joan Aichholz BATCH UNLOADER Work Phone: [facility] 08-19-2024 16:07-0500 Body weight 182.53 kg Joan Aichholz BATCH UNLOADER Work Phone: [facility] 08-19-2024 16:07-0500 Diastolic blood pressure 100 mm[Hg] Joan Aichholz BATCH UNLOADER Work Phone: [facility] 08-19-2024 16:07-0500 Heart rate 98 /min Joan Aichholz BATCH UNLOADER Work Phone: [facility] 08-19-2024 16:07-0500 Respiratory rate 20 /min Joan Aichholz BATCH UNLOADER Work Phone: [facility] 08-19-2024 16:07-0500 SaO2% (BldA) [Mass fraction] 97 % Joan Aichholz BATCH UNLOADER Work Phone: [facility] 08-19-2024 16:07-0500 Systolic blood pressure 160 mm[Hg] Joan Andresz BATCH UNLOADER Work Phone: [facility] 06-25-2024 08:59-0400 Body mass index (BMI) [Ratio] 52.43 kg/m2 Joanhouston Newellholz BATCH UNLOADER Work Phone: [facility] 06-25-2024 08:59-0400 Body temperature 98.1 [degF] Joan Andresz BATCH UNLOADER Work Phone: [facility] 06-25-2024 08:59-0400 Body weight 180.26 kg Joan Cabrerahholz BATCH UNLOADER Work Phone: [facility] 06-25-2024 08:59-0400 Diastolic blood pressure 100 mm[Hg] Joan Reeceholz BATCH UNLOADER Work Phone: [facility] 06-25-2024 08:59-0400 Heart rate 89 /min Joan Reeceholz BATCH UNLOADER Work Phone: [facility] 06-25-2024 08:59-0400 Respiratory rate 18 /min Joan Cabrerahholz BATCH UNLOADER Work Phone: [facility] 06-25-2024 08:59-0400 SaO2% (BldA) [Mass fraction] 98 % Joan Reeceholz BATCH UNLOADER Work Phone: [facility] 06-25-2024 08:59-0400 Systolic blood pressure 180 mm[Hg] Joan Reeceholz BATCH UNLOADER Work Phone: [facility] 03-19-2024 18:00-0400 Hourly Rounding [facility] Comment on above: Result Comment: patient d/c. transported pt via w/c to main doors per families request 03-19-2024 17:00-0400 Hourly Rounding [facility] 03-19-2024 17:00-0400 Promise to Return [facility] 03-19-2024 16:52-0400 Hourly Rounding [facility] 03-19-2024 16:52-0400 Promise to Return [facility] 03-19-2024 16:00-0400 Blood Pressure Location [facility] 03-19-2024 16:00-0400 Body temperature 98.06 [degF] [facility] 03-19-2024 16:00-0400 Diastolic blood pressure 80 mm[Hg] [facility] 03-19-2024 16:00-0400 Heart rate 85 /min A[facility] 03-19-2024 16:00-0400 Mean blood pressure 105 mm[Hg] [facility] 03-19-2024 16:00-0400 Respiratory rate 16 /min [facility] 03-19-2024 16:00-0400 SaO2% (BldA) [Mass fraction] 98 % [facility] 03-19-2024 16:00-0400 Systolic blood pressure 154 mm[Hg] [facility] 03-19-2024 15:49-0400 Promise to Return [facility] 03-19-2024 12:00-0400 Diastolic blood pressure 84 mm[Hg] [facility] 03-19-2024 12:00-0400 Systolic blood pressure 157 mm[Hg] [facility] 03-19-2024 06:00-0400 Body temperature 97.52 [degF] [facility] 03-19-2024 06:00-0400 Diastolic blood pressure 83 mm[Hg] [facility] 03-19-2024 06:00-0400 Heart rate 83 /min [facility] 03-19-2024 06:00-0400 Respiratory rate 18 /min [facility] 03-19-2024 06:00-0400 Systolic blood pressure 168 mm[Hg] [facility] 03-19-2024 01:25-0400 Blood Pressure Location [facility] 03-19-2024 01:25-0400 Body temperature 97.7 [degF] [facility] 03-19-2024 01:25-0400 Heart rate 92 /min [facility] 03-19-2024 01:25-0400 Mean blood pressure 103 mm[Hg] [facility] 03-19-2024 01:25-0400 Respiratory rate 20 /min [facility] 03-19-2024 01:25-0400 SaO2% (BldA) [Mass fraction] 97 % [facility] 03-18-2024 21:33-0400 gluc 275 mg/dL [facility] 03-18-2024 19:22-0400 Blood Pressure Location [facility] 03-18-2024 19:22-0400 Mean blood pressure 103 mm[Hg] [facility] 03-18-2024 19:21-0400 Body temperature 97.7 [degF] [facility] 03-18-2024 16:05-0400 Body temperature 98.24 [degF] [facility] 03-18-2024 12:29-0400 Mean blood pressure 118 mm[Hg] [facility] 03-17-2024 21:36-0400 gluc 218 mg/dL [facility] 03-17-2024 11:00-0400 Body temperature 98.24 [degF] [facility] 03-17-2024 11:00-0400 Mean blood pressure 106 mm[Hg] [facility] 03-16-2024 00:34-0400 Heart rate 98 /min [facility] 03-16-2024 00:34-0400 Mean blood pressure 98 mm[Hg] [facility] 03-16-2024 00:34-0400 Respiratory rate 19 /min [facility] 03-15-2024 14:20-0400 Body temperature 96.98 [degF] [facility] 03-15-2024 14:20-0400 Respiratory rate 15 /min [facility] 03-15-2024 14:10-0400 Respiratory rate 20 /min [facility] 03-15-2024 13:47-0400 Body temperature 97.34 [degF] [facility] 03-15-2024 05:00-0400 Heart rate 76 /min [facility] 03-14-2024 23:52-0400 Heart rate 82 /min [facility] 03-05-2024 12:37-0400 Hourly Rounding Esvin Liz [facility] 03-05-2024 12:37-0400 Promise to Return Esvin [place] [facility] 03-05-2024 11:00-0400 Hourly Rounding Esvin [facility] 03-05-2024 11:00-0400 Promise to Return Esvin [place] [facility] 03-05-2024 10:00-0400 Diastolic blood pressure 92 mm[Hg] Esvin [place] [facility] 03-05-2024 10:00-0400 Hourly Rounding Esvin [place] [facility] 03-05-2024 10:00-0400 Promise to Return Esvin [facility] 03-05-2024 10:00-0400 Systolic blood pressure 168 mm[Hg] Esvin [place] [facility] 03-05-2024 09:45-0400 Body temperature 97.7 [degF] Esvin [place] [facility] 03-05-2024 09:45-0400 Diastolic blood pressure 91 mm[Hg] Esvin [facility] 03-05-2024 09:45-0400 Heart rate 81 /min Esvin [place] [facility] 03-05-2024 09:45-0400 Mean blood pressure 119 mm[Hg] Esvin [place] [facility] 03-05-2024 09:45-0400 Respiratory rate 18 /min Esvin [facility] 03-05-2024 09:45-0400 SaO2% (BldA) [Mass fraction] 98 % Esvin [place] [facility] 03-05-2024 09:45-0400 Systolic blood pressure 176 mm[Hg] Esvin [facility] 03-05-2024 05:23-0400 gluc 165 mg/dL Esvin [facility] 03-05-2024 03:55-0400 Respiratory rate 18 /min Esvin [place] [facility] 03-05-2024 03:50-0400 Heart rate 76 /min Esvin [place] [facility] 03-05-2024 03:50-0400 SaO2% (BldA) [Mass fraction] 98 % Esvin [place] [facility] 03-05-2024 03:49-0400 Diastolic blood pressure 86 mm[Hg] Esvin [facility] 03-05-2024 03:49-0400 Mean blood pressure 111 mm[Hg] Esvin [facility] 03-05-2024 03:49-0400 Systolic blood pressure 161 mm[Hg] Esvin [place] [facility] 03-05-2024 03:47-0400 Body temperature 97.88 [degF] Sevin [place] [facility] 03-04-2024 23:54-0400 gluc 169 mg/dL Esvin [place] [facility] 03-04-2024 23:30-0400 Body temperature 98.6 [degF] Es[facility] [place] [facility] 03-04-2024 23:30-0400 Mean blood pressure 104 mm[Hg] Esvin [place] [facility] 03-04-2024 23:30-0400 Respiratory rate 18 /min Es[facility] [place] [facility] 03-04-2024 23:30-0400 SaO2% (BldA) [Mass fraction] 97 % Esvin [place] [facility] 03-04-2024 20:09-0400 Mean blood pressure 104 mm[Hg] Esvin [place] [facility] 03-04-2024 20:08-0400 Body temperature 98.96 [degF] Esvin [facility] 03-04-2024 19:50-0400 gluc 191 mg/dL Esvin [place] [facility] 03-04-2024 18:35-0400 Blood Pressure Location Esvin [facility] 03-04-2024 18:35-0400 Body temperature 97.88 [degF] Esvin [facility] 03-04-2024 18:35-0400 Heart rate 85 /min Esvin [place] [facility] 03-04-2024 17:39-0400 Mean blood pressure 92 mm[Hg] Esvin [place] [facility] 06-26-2024 17:00-0400 Mean blood pressure 103 mm[Hg] Esvin [place] [facility] 03-04-2024 14:15-0400 Body temperature 97.52 [degF] Esvin Hl[facility] 03-04-2024 14:15-0400 Heart rate 105 /min Esvin [place] [facility] Encounters Encounter Date Encounter Type Care Provider Facility Start: 03-08-2025 End: 03-08-2025 Office outpatient visit 25 minutes Alexandre Daniel MD Work Phone: [facility] Comment on above: Hidradenitis suppura tiva (Primary Dx); High risk medication use Start: 03-08-2025 End: 03-08-2025 ambulatory ALEXANDRE DANIEL Not Available Start: 03-08-2025 End: 03-08-2025 Bamboo flowsheet Alexandre Daniel MD Work Phone: [facility] Start: 03-08-2025 End: 03-08-2025 Bamboo flowsheet Alexandre Daniel MD Work Phone: [facility] Start: 01-12-2025 End: 01-12-2025 Telephone encounter Joan Carrillo BATCH UNLOADER Work Phone: [facility] Start: 01-11-2025 End: 01-12-2025 Refill Joan Lorena BATCH UNLOADER Work Phone: [facility] Comment on above: Primary hypertension (CMS/HCC); Neuropathy; Anxiety and depression (CMS/HCC); Gastroesophageal reflux disease without esophagitis; Type 2 diabetes mellitus with other skin complication, without long-term current use of insulin Start: 01-04-2025 End: 01-04-2025 Refill Joan Aickeithholz BATCH UNLOADER Work Phone: [facility] Comment on above: Type 2 diabetes vicky itus with other skin complication, without long-term current use of insulin; Primary hypertension (CMS/HCC); Hypertriglyceridemia (CMS/HCC) Start: 11-17-2024 End: 11-17-2024 Refill Joan Aichholz BATCH UNLOADER Work Phone: [facility] Comment on above: Primary hypertension (CMS/HCC) Start: 10-21-2024 End: 10-21-2024 Office outpatient visit 25 minutes Joan Aichholz BATCH UNLOADER Work Phone: [facility] Comment on above: Primary hypertension (CMS/HCC) (Primary Dx); Type 2 diabetes mellitus with diabetic polyneuropathy ([facility]/HCC); Morbid (severe) obesity due to excess calories ([facility]); Body mass index (BMI) 50.0-59.9, adult ([facility]); Type 2 diabetes mellitus with other skin complications ([facility]); Type 2 diabetes mellitus without complication, without long-term current use of insulin ([facility]); Hidradenitis suppurativa; Anxiety and depression ([facility]) Start: 10-21-2024 End: 10-21-2024 ambulatory JOAN AICHHOLZ Not Available Start: 10-21-2024 End: 10-21-2024 Bamboo flowsheet Joan Aichholz BATCH UNLOADER Work Phone: [facility] Start: 10-21-2024 End: 10-21-2024 Bamboo flowsheet Joan Aichholz BATCH UNLOADER Work Phone: [facility] Start: 10-13-2024 End: 10-13-2024 Clinisync Result Encounter Joan Aichholz BATCH UNLOADER Work Phone: [facility] External Department Unsolicited Start: 10-13-2024 End: 10-13-2024 Clinisync Result Encounter Joan Aichholz BATCH UNLOADER Work Phone: [facility] External Department Unsolicited Start: 10-04-2024 End: 10-04-2024 Refill Joan Aichholz BATCH UNLOADER Work Phone: [facility] Comment on above: Type 2 diabetes vicky itus without complication, without long- term current use of insulin ([facility]) (Primary Dx) Start: 09-28-2024 End: 09-28-2024 Office outpatient new 45 minutes Alexandre Daniel MD Work Phone: [facility] Comment on above: Hidradenitis suppura tiva (Primary Dx); High risk medication use Start: 09-28-2024 End: 09-28-2024 ambulatory ALEXANDRE DANIEL Not Available Start: 09-28-2024 End: 09-28-2024 Bamboo flowsheet Alexandre Daniel MD Work Phone: [facility] Start: 09-28-2024 End: 09-28-2024 Bamboo flowsheet Alexandre Daniel MD Work Phone: [facility] Start: 08-25-2024 End: 08-25-2024 Refill Joan Aichholz BATCH UNLOADER Work Phone: [facility] Start: 08-20-2024 End: 08-21-2024 Refill Joan Aichholz BATCH UNLOADER Work Phone: [facility] Comment on above: Gastroesophageal ref lux disease without esophagitis; Neuropathy Start: 08-19-2024 End: 08-19-2024 Office outpatient visit 25 minutes Joan Lorena BATCH UNLOADER Work Phone: [facility] Comment on above: Primary hypertension ([facility]) (Primary Dx); Type 2 diabetes mellitus without complication, without long-term current use of insulin ([facility]); Hidradenitis suppurativa; Morbid obesity ([facility]); BMI 50.0-59.9, adult ([facility]) Start: 08-19-2024 End: 08-19-2024 ambulatory JOAN AICHHOLZ Not Available Start: 08-19-2024 End: 08-19-2024 Bamboo flowsheet Joan Aichholz BATCH UNLOADER Work Phone: [facility] Start: 08-19-2024 End: 08-19-2024 Bamboo flowsheet Joan Aichholz BATCH UNLOADER Work Phone: [facility] Start: 08-17-2024 End: 08-17-2024 Refill Joan Aichholz BATCH UNLOADER Work Phone: [facility] Comment on above: Hidradenitis suppura tiva (Primary Dx) Start: 08-10-2024 End: 08-10-2024 Refill Joan Aichholz BATCH UNLOADER Work Phone: [facility] Comment on above: Type 2 diabetes vicky itus without complication, without long- term current use of insulin (CMS/HCC) (Primary Dx) Start: 08-05-2024 End: 08-05-2024 Refill Joan Aichholz BATCH UNLOADER Work Phone: [facility] Comment on above: Hidradenitis suppura tiva (Primary Dx) Primary hypertension (CMS/HCC); Hypertriglyceridemia (CMS/HCC); Anxiety and depression (CMS/HCC); Type 2 diabetes mellitus with other skin complication, without long-term current use of insulin (CMS/HCC); Neuropathy; Overactive bladder; Gastroesophageal reflux disease without esophagitis Start: 07-31-2024 End: 07-31-2024 Refill Joan Aichholz BATCH UNLOADER Work Phone: [facility] Comment on above: Primary hypertension (CMS/HCC) Start: 07-27-2024 End: 07-27-2024 Refill Joan Aichholz BATCH UNLOADER Work Phone: [facility] Comment on above: Primary hypertension (CMS/HCC); Type 2 diabetes mellitus without complication, without long-term current use of insulin (CMS/HCC) Neuropathy; Primary hypertension (CMS/HCC) Primary hypertension (CMS/HCC) Start: 07-24-2024 End: 07-24-2024 Orders Only Joan Aichholz BATCH UNLOADER Work Phone: [facility] Comment on above: Lung nodule (Primary Dx) Start: 07-13-2024 End: 07-13-2024 Refill Joan Aichholz BATCH UNLOADER Work Phone: [facility] Comment on above: Type 2 diabetes vicky itus with other skin complication, without long-term current use of insulin (CMS/HCC) Start: 07-02-2024 End: 07-02-2024 Refill Joan Aichholz BATCH UNLOADER Work Phone: [facility] Comment on above: Hidradenitis suppura tiva (Primary Dx) Start: 06-29-2024 End: 06-29-2024 ambulatory Demarco Collins Facility:[facility] Start: 06-25-2024 End: 06-25-2024 Bamboo flowsheet Joan Aichholz BATCH UNLOADER Work Phone: [facility] Start: 06-25-2024 End: 06-25-2024 Bamboo flowsheet Joan Aichholz BATCH UNLOADER Work Phone: [facility] Start: 06-25-2024 End: 06-25-2024 Office outpatient visit 25 minutes Joan Dmitryz BATCH UNLOADER Work Phone: [facility] Comment on above: Type 2 [...] 06-15-2024 End: 06-15-2024 Orders Only Joan Aichholz BATCH UNLOADER Work Phone: [facility] Comment on above: Lung nodule (Primary Dx) Start: 06-13-2024 End: 06-13-2024 Clinisync Result Encounter Joan Aichholz BATCH UNLOADER Work Phone: [facility] Unsolicited Start: 06-13-2024 End: 06-13-2024 Clinisync Result Encounter Joan Aichholz BATCH UNLOADER Work Phone: [facility] Unsolicited Start: 06-05-2024 End: 06-16-2024 Refill Joanhouston Carrillo BATCH UNLOADER Work Phone: [facility] Comment on above: Type 2 diabetes vicky itus without complication, without long- term current use of insulin ([facility] (Primary Dx) Type 2 diabetes vicky itus with other skin complication, without long-term current use of insulin ([facility] (Primary Dx) Start: 04-03-2024 End: 04-03-2024 ambulatory Demarco Collins Facility[place] Start: 03-26-2024 Patient encounter procedure Joan Carirllo BATCH UNLOADER Work Phone: [facility] Start: 03-26-2024 End: 03-26-2024 ambulatory JOAN CABRERAHHOLZ Not Available Start: 03-25-2024 End: 03-25-2024 ambulatory Shannon Gallegos Facility:[facility] Start: 03-23-2024 ambulatory Demarco Collins Facility:[facility] Start: 03-14-2024 End: 03-19-2024 Evaluation and management of inpatient Salvatore WOOTEN Facility:[facility] Start: 03-14-2024 Emergency department patient visit Demarco Mooree Facility:[facility] Start: 03-14-2024 End: 03-19-2024 Evaluation and management of inpatient Jason West [facility] Start: 03-04-2024 End: 03-05-2024 ambulatory Astrit H Haearlari Facility:[facility] Start: 03-04-2024 Emergency department patient visit Astrit H Hajdari Facility:[facility] Start: 03-04-2024 End: 03-05-2024 Observation Esvin Hill [facility] Start: 08-13-2023 End: 08-14-2023 ambulatory Alesha Christensen Facility:[facility] Start: 12-26-2022 End: 12-27-2022 ambulatory [employer] JOAN AICHHOLZ Facility:[facility] Start: 11-27-2022 End: 11-28-[address] SALVATORE MATHUR . Facility:[facility] Start: 11-05-2022 End: 11-05-2022 Patient encounter procedure Salvatore MATHUR [facility] Start: 10-29-2022 End: 10-29-2022 ambulatory [employer] JOAN AICHHOLZ Facility:[facility] Start: 06-18-2022 End: 06-18-2022 ambulatory [employer] JOAN AICHHOLZ Facility:[facility] Start: 05-11-2022 End: 05-11-2022 ambulatory [employer] JOAN AICHHOLZ Facility:[facility] Start: 05-10-2022 End: 05-11-2022 ambulatory [employer] JOAN AICHHOLZ Facility:[facility] Procedures Date Procedure Procedure Detail Performing Clinician Start: 10-21-2024 Hemoglobin glycosylated a1c Joan Aichholz BATCH UNLOADER Work Phone: Start: 10-13-2024 ALL CBC WITH AUTO DIFF Joan Aichholz BATCH UNLOADER Work Phone: Start: 07-27-2024 Colonoscopy Joan Aichh olz BATCH UNLOADER Work Phone: Start: 06-13-2024 ALL CBC WITH AUTO DIFF Joan Aichholz BATCH UNLOADER Work Phone: Start: 03-21-2016 Drainage of scrotal abscess Salvatore MATHUR Tonsillectomy Salvatore MATHUR Plan of Treatment Date Care Activity Detail Author Start: 07-27-2034 Screening for malign ant neoplasm of colon [facility] Start: 06-03-2025 End: 06-03-2025 Patient encounter procedure 06/03/2025 3:45 PM EDT Office Visit [facility] [address] [place] [address] Alexandre Daniel MD [address] [place] [address] [facility] Start: 03-26-2025 Medicare Annual Well ness (AWV) Medicare Annual Wellness (AWV) [facility] Start: 03-19-2025 Urine screening for protein Diabetes: Urine Protein Screening [facility] Start: 03-08-2025 End: 03-08-2025 Patient encounter procedure 03/08/2025 4:00 PM EDT Office Visit [facility] [address] [place] [address] Alexandre Daniel MD [address] [place] [address] Arrived [facility] Comment on above: Arrived Start: 01-21-2025 End: 07-24-2025 CT Chest W contrast IV CT chest w IV contrast Imaging Routine Lung nodule Expected: 01/21/2025, Expires: 07/24/2025 [facility] Work Phone: Comment on above: Expected: 01/21/2025 , Expires: 07/24/2025 Start: 01-18-2025 Hemoglobin A1c measurement Robina betes: Hemoglobin A1C [facility] Start: 11-19-2024 End: 11-19-2024 Patient encounter procedure 11/19/2024 3:40 PM EDT Office Visit [facility] [address] [place] [id number] Joan Carrillo NP [address] [place] [id number] [facility] Start: 10-21-2024 End: 10-21-2024 Patient encounter procedure [facility] Comment on above: Primary hypertension (CMS/HCC) (Primary Dx); Type 2 diabetes mellitus with diabetic polyneuropathy (CMS/HCC); Morbid (severe) obesity due to excess calories (CMS/HCC); Body mass index (BMI) 50.0-59.9, adult (CMS/HCC); Type 2 diabetes mellitus with other skin complications (CMS/HCC); Type 2 diabetes mellitus without complication, without long-term current use of insulin (CMS/HCC); Hidradenitis suppurativa; Anxiety and depression (CMS/HCC) Start: 09-28-2024 End: 09-28-2024 Patient encounter procedure [facility] Comment on above: Hidradenitis suppura tiva Start: 09-28-2024 End: 09-28-2025 Alanine aminotransferase [Enzymatic activity/volume] in Serum or Plasma ALT Lab Routine Hidradenitis suppurativa High risk medication use Expected: 09/28/2024 (Approximate), Expires: 09/28/2025 [facility] Comment on above: Expected: 09/28/2024 (Approximate), Expires: 09/28/2025 Start: 09-28-2024 End: 09-28-2025 CBC W Auto Differential panel - Blood CBC and differential Lab Routine Hidradenitis suppurativa High risk medication use Expected: 09/28/2024 (Approximate), Expires: 09/28/2025 [facility] Comment on above: Expected: 09/28/2024 (Approximate), Expires: 09/28/2025 Start: 09-28-2024 End: 09-28-2025 Hepatitis C virus Ab [Presence] in Serum or Plasma by Immunoassay Hepatitis C antibody Lab Routine Hidradenitis suppurativa High risk medication use Expected: 09/28/2024 (Approximate), Expires: 09/28/2025 [facility] Comment on above: Expected: 09/28/2024 (Approximate), Expires: 09/28/2025 Start: 09-28-2024 End: 09-28-2025 Hiv-1 rna, quantitative by pcr Hiv-1 rna, quantitative by pcr Lab Routine Hidradenitis suppurativa High risk medication use Expected: 09/28/2024 (Approximate), Expires: 09/28/2025 [facility] Comment on above: Expected: 09/28/2024 (Approximate), Expires: 09/28/2025 Start: 09-28-2024 End: 09-28-2025 TB test, cell immune measure TB test, cell immune measure Lab Routine Hidradenitis suppurativa High risk medication use Expected: 09/28/2024 (Approximate), Expires: 09/28/2025 [facility] Work Phone: Comment on above: Expected: 09/28/2024 (Approximate), Expires: 09/28/2025 Start: 09-13-2024 Hemoglobin A1c measurement Robina betes: Hemoglobin A1C [facility] Start: 08-19-2024 End: 08-19-2024 Patient encounter procedure 08/19/2024 4:15 PM EST Office Visit [facility] [address] [place] [address] Joan Carrillo, RAFAELA [address] [place] [id number] Arrived [facility] Comment on above: Arrived Start: 07-27-2024 End: 07-27-2024 Patient encounter procedure 07/27/2024 3:40 PM EST Office Visit [facility] [address] [place] [address] Joan Carrillo NP [address] [place] [phone] [facility] Start: 06-25-2024 End: 06-25-2024 Patient encounter procedure [facility] Comment on above: Arrived Start: 06-15-2024 End: 06-15-2025 CT Chest W contrast IV CT chest w IV contrast Imaging Routine Lung nodule Expected: 06/15/2024 (Approximate), Expires: 06/15/2025 [facility] Work Phone: Comment on above: Expected: 06/15/2024 (Approximate), Expires: 06/15/2025 Start: 04-24-2024 ambulatory Ambulatory Facility:[facility] Start: 1994 Urine screening for protein Diabetes: Urine Protein Screening [facility] Start: 1985 Glaucoma screening Diabetes: R etinopathy Screening [facility] Start: 1975 Hemoglobin A1c measurement Robina betes: Hemoglobin A1C [facility] Start: 1975 Screening for malign ant neoplasm of colon [facility] Immunizations Immunization Date Immunization Notes Care Provider Fa cility 04-25-2021 SARS-CoV-2 (COVID-19 ) mRNA BNT-162b2 brennon MATHUR [facility] 03-31-2021 SARS-CoV-2 (COVID-19 ) mRNA BNT-162b2 brennon MATHUR [facility] Payers Date Payer Category Payer Medicare HU[employer]NA MEDICARE ADVANTAGE HU[employer]NA MEDICARE [id number] 2021-Present [address] [place] [id number] 2021 Medicare (Managed Care) HUMANA M EDICARE ADVANTAGE [id number] 1975 Unknown [id number] 2..840.1.852253.3.579. 2.593 1975 Unknown [id number] 2.16840.1.824567.3.579. 2.593 1975 Unknown [id number] 2.16840.1.785682.3.579. 2.593 1975 Unknown [id number] 2.16840.1.025714.3.579. 2.593 1975 Unknown [id number] 2.16840.1.517593.3.579. 2.593 1975 Unknown [id number] 2.16.840.1.556550.3.579. 2.593 1975 Unknown [id number] 2.16.840.1.718169.3.579. 2.593 1975 Unknown [id number] 2.16.840.1.466421.3.579. 2.727 1975 Unknown [id number] 2.16.840.1.035260.3.579. 2.72 1975 Unknown [id number] 2.16.840.1.752981.3.579. 2.72 1975 Unknown [id number] 2.16.840.1.603707.3.579. 272 1975 Unknown [id number] 2.16.840.1.411172.3.579. 272 1975 Unknown [id number] 2.16840.1.684769.3.579. 272 1975 Unknown [id number] 2.16.840.1.527641.3.579. 272 1975 Unknown [id number] 2.16.840.1.388900.3.579. 272 1975 Unknown [id number] 2.16.840.1.118492.3.579. 272 1975 Unknown [id number] 2.16.840.1.423079.3.579. 2.72 1975 Unknown [id number] 2.16.840.1.079020.3.579. 272 1975 Unknown [id number] 2.16.840.1.116169.3.579. 272 1975 Unknown [id number] 2.16.840.1.374676.3.579. 2.72 1975 Unknown [id number] 2.16.840.1.506235.3.579. 272 1975 Unknown [id number] 2.16.840.1.828428.3.579. 2.727 1975 Unknown [id number] 2.16.840.1.477813.3.579. 2.727 1975 Unknown [id number] 2.16.840.1.541343.3.579. 2.727 1975 Unknown [id number] 2.16.840.1.512843.3.579. 2.727 1975 Unknown [id number] 2.16.840.1.577032.3.579. 2.727 1975 Unknown [id number] 2.16.840.1.481976.3.579. 2.727 1975 Unknown [id number] 2.16.840.1.074651.3.579. 2.1259 1975 Unknown [id number] 2.16.840.1.125652.3.579. 2.1259 1975 Unknown [id number] 2.16.840.1.992000.3.579. 2.1259 1975 Unknown [id number] 2.16.840.1.919604.3.579. 2.9 1975 Unknown [id number] 2.16.840.1.811312.3.579. 2.9 1975 Unknown [id number] 2.16.840.1.386948.3.579. 2.1259 1959 Medicare [id number] Social History Date Type Detail Facility Start: 11-05-2022 End: 10-10-2023 Tobacco smoking status Ex-smoker (finding) [facility] Start: 03-26-2024 End: 10-21-2024 Sex Assigned At Male [facility] History of tobacco use Current smoker [facility] History of tobacco use Cigarette Smoker [facility] Start: 10-10-2023 Tobacco use and exposure Smokeless tobacco non-user [facility] Start: 03-26-2024 End: 03-10-2025 Alcoholic beverage intake Lifetime non-drinker (finding) [facility] Start: 03-26-2024 End: 10-21-2024 History of Social function [facility] Start: 10-10-2023 Alcohol Comment caffine: diet mountain dew 3-4 daily [facility] Start: 1975 Sex assigned at Not on file [facility] Medical Equipment Procedure Code Equipment Code Equipment Origin al Text Equipment Identifier Dates [id number] Start: 08-07-2023 End: 09-13-2024 1 each by Other route Daily 1 each by Other route if needed. [id number] Start: 07-13-2024 End: 10-21-2024 1 each by Other route Daily 1 each by Other route if needed. [id number] Start: 08-05-2024 End: 11-13-2024 Functional Status Date Assessment Result Facility 03-14-2024 Functional Status N/A [facility] 03-14-2024 Functional Status [facility] 03-04-2024 Functional Status N/A [facility] 03-04-2024 Functional Status [facility] 11-05-2022 Functional Status N/A [facility] Clinical Notes 11-05-2022 to 03-08-2025 Alexandre Daniel MD - 03/08/2025 4:00 PM EDTTelephone Encounter - Joan Carrillo NP - 01/12/2025 6:35 AM EDTTelephone Encounter - Joan Carrillo NP - 01/12/2025 6:35 AM EDTPatient Instructions Note Date & Type Note Facility 03-08-2025 History of Present illness Narrative Follow up Diagnosis: Hidradenitis Location: inner thighs, groin, waistline Last visit: 09/28/2024 Symptoms: boil like Status: improved since last visit, states he flares every 10 days - overall has had marked decrease in frequency and severity of flares as well as drainage since starting the medication. Treatments tried and failed: Bactrim, Keflex, Minocycline, Doxycycline Current treatment: Hibiclens, Clindamycin lotion, Humira All pertinent medical history, medications, and allergies were reviewed. General Exam: alert, oriented to person, place, and time, normal affect, well appearing Accompanied by Mom A focused exam completed based on patient reported problems, see below: Skin Exam 1. HIDRADENITIS SUPPURATIVA Left Abdomen (side) - Lower, Left Inguinal Area, Left Medial Thigh, Left Thigh - Anterior, Right Abdomen (side) - Lower, Right Inguinal Area, Right Medial Thigh, Right Thigh - Anterior Erythematous nodules, double comedones, and scarring. Vega Stage 3. Improved since last visit but still flaring every 10 days. The patient was counseled that hidradenitis is a chronic inflammatory disorder of the hair follicles and sweat glands. There appears to be a genetic predisposition for this condition. Quitting smoking, weight loss, and wearing looser fitting clothing may help decrease the severity/amount of flares. Continue Hibiclens 2-3x/week in the shower from the neck down and clindamycin lotion every day prn for flares, hold if clear. Changed Humira to 40 mg every week to help with breakthrough flaring. Patient with severe disease with permanent scarring and tracts that topicals alone will not control, has failed multiple oral antibiotics, would greatly benefit from injectable biologic to help control morbidity and progression of disease. Patient has quit smoking to help prevent flares with minimal improvement. Plan to follow up 3 months. Related Medications Chlorhexidine Gluconate (Hibiclens) 4 % solution Use from the neck down in shower then rinse off 2-3x/week clindamycin (Cleocin T) 1 % lotion Apply thin layer to affected areas on leg, groin, abdomen, once daily, 30 day supply Adalimumab (Humira-CD/UC/HS Starter) 80 MG/0.8ML Auto-injector Kit Inject 80 mg under the skin See administration instructions Starter dosing: Inject 160 mg (2 pens) subcutaneous on day 1, then 80 mg on day 15 (1 pen) then 80 mg (1 pen) on day 29. Adalimumab (Humira, 2 Pen,) 80 MG/0.8ML Auto-injector Kit Inject 80 mg under the skin every 14 (fourteen) days 2. HIGH RISK MEDICATION USE Generalized Next Visit: 3 months, follow up documented in this encounter [facility] 01-12-2025 Telephone encounter Note Needs a fu appt scheduled, [place] [facility] 01-12-2025 Miscellaneous Notes Needs a fu appt scheduled, [place] documented in this encounter [facility] 10-21-2024 History of Present illness Narrative Images from the original note were not included. Christian Shelby is a 49 y.o. male presents with chief complaint of No chief complaint on file. HPI: Takes effexor for BRYON/depression: no SI/HI, is more irritated/aggitated, would like to increase dose Hypertension This is a chronic problem. The current episode started more than 1 year ago. The problem has been gradually worsening since onset. The problem is uncontrolled. Pertinent negatives include no blurred vision, chest pain, neck pain, orthopnea, peripheral edema or shortness of breath. There are no associated agents to hypertension. Risk factors for coronary artery disease include dyslipidemia, diabetes mellitus, male gender, obesity and sedentary lifestyle. Past treatments include angiotensin blockers and calcium channel blockers. The current treatment provides moderate improvement. There are no compliance problems. There is no history of CVA. Diabetes He presents for his follow-up diabetic visit. His disease course has been fluctuating. Hypoglycemia symptoms include nervousness/anxiousness. Pertinent negatives for hypoglycemia include no dizziness, seizures or tremors. Associated symptoms include polyuria. Pertinent negatives for diabetes include no blurred vision, no chest pain, no foot paresthesias, no polydipsia and no polyphagia. There are no hypoglycemic complications. Symptoms are worsening. Pertinent negatives for diabetic complications include no CVA, heart disease, nephropathy or peripheral neuropathy. Risk factors for coronary artery disease include diabetes mellitus, dyslipidemia, hypertension, male sex, obesity, sedentary lifestyle and tobacco exposure. Current diabetic treatment includes oral agent (triple therapy). He is compliant with treatment most of the time. He rarely participates in exercise. His overall blood glucose range is 180-200 mg/dl. An ENEIDA inhibitor/angiotensin II receptor des is being taken. He does not see a civil engineering director.Eye exam is not current. SUBJECTIVE: MEDICATIONS: Current Outpatient Medications Medication Instructions amLODIPine (NORVASC) 10 mg, Oral, Daily aspirin 81 mg, Daily atorvastatin (LIPITOR) 20 mg, Oral, Every evening Blood Glucose Monitoring Suppl (True Metrix Go Glucose Meter) w/Device kit 1 each, Other, Daily, USE 1 TIME DAILY TO CHECK BLOOD SUGAR busPIRone (BUSPAR) 5 mg, Oral, 2 times daily carvedilol (COREG) 3.125 mg, Oral, 2 times daily with meals Chlorhexidine Gluconate (Hibiclens) 4 % solution Use from the neck down in shower then rinse off 2-3x/week clindamycin (Cleocin T) 1 % lotion Apply thin layer to affected areas on leg, groin, abdomen, once daily, 30 day supply Continuous Glucose Tester Armature Or Fields (FreeStyle Mihai 3 Golden Eagle) device 1 each, Does not apply, Daily Continuous Glucose Sensor (FreeStyle Mihai 3 Sensor) misc 1 each, Does not apply, Daily dapagliflozin (FARXIGA) 10 mg, Oral, Daily gabapentin (NEURONTIN) 300 mg, Oral, Nightly glimepiride (AMARYL) 4 mg, Oral, Daily before breakfast glucose blood (True Metrix Blood Glucose Test) test strip 1 each, Other, Daily, 1 each by Other route if needed. losartan (COZAAR) 100 mg, Oral, Daily metFORMIN (GLUCOPHAGE) 1,000 mg, Oral, 2 times daily with meals Mounjaro 7.5 mg, Subcutaneous, Every 7 days pantoprazole (PROTONIX) 20 mg, Oral, 2 times daily (04/20) venlafaxine XR (EFFEXOR XR) 150 mg, Oral, Daily ALLERGIES: No Known Allergies REVIEW OF SYMPTOMS: Review of Systems Constitutional: Negative for activity change, appetite change and unexpected weight change. HENT: Negative for ear pain, nosebleeds, sneezing, trouble swallowing and voice change. Eyes: Negative for blurred vision, pain, discharge and visual disturbance. Respiratory: Negative for apnea, chest tightness, shortness of breath and wheezing. Cardiovascular: Negative for chest pain, orthopnea and leg swelling. Gastrointestinal: Negative for abdominal distention, blood in stool, constipation and diarrhea. Genitourinary: Negative for decreased urine volume, difficulty urinating, dysuria and hematuria. Musculoskeletal: Negative for neck pain. Skin: Positive for wound. Negative for color change. Neurological: Negative for dizziness, tremors and seizures. Psychiatric/Behavioral: Negative for agitation, decreased concentration, hallucinations, self-injury and suicidal ideas. The patient is nervous/anxious. Depression Hematological: Negative for adenopathy. Does not bruise/bleed easily. Endocrine: Positive for polyuria. Negative for cold intolerance, heat intolerance, polydipsia and polyphagia. Allergic/Immunologic: Negative for environmental allergies and food allergies. PAST MEDICAL HISTORY Past Medical History: Diagnosis Date Anxiety and depression [place] 09/24/2023 Arthritis Boils of multiple sites 09/24/2023 Elevated serum protein level 09/24/2023 Hidradenitis suppurativa 09/24/2023 Hypertension [place] Hypertriglyceridemia [place] 09/24/2023 Lung nodule 09/24/2023 Overactive bladder Pruritus Type 2 diabetes mellitus with skin complication, without long-term current use of insulin ([facility] 08/27/2023 Past Surgical History: Procedure Laterality Date HERNIA REPAIR TOE SURGERY family history is not on file. OBJECTIVE: Visit Vitals BP (!) 170/98 (BP Location: Left arm, Patient Position: Sitting, BP Cuff Size: Large adult) Pulse 95 Temp 98.6 F (Temporal) Ht 6' 1 Wt (!) 408 lb 3.2 oz SpO2 96% BMI 53.86 kg/m Smoking Status Former BSA 3.09 m Physical Exam Vitals and nursing note reviewed. Constitutional: Appearance: Normal appearance. He is obese. He is not ill-appearing. HENT: Head: Normocephalic. Right Ear: External ear normal. Left Ear: External ear normal. Nose: Nose normal. Mouth/Throat: Mouth: Mucous membranes are moist. Pharynx: Oropharynx is clear. Eyes: Extraocular Movements: Extraocular movements intact. Conjunctiva/sclera: Conjunctivae normal. Neck: Vascular: No carotid bruit. Cardiovascular: Rate and Rhythm: Normal rate and regular rhythm. Pulses: Normal pulses. Heart sounds: Normal heart sounds. Pulmonary: Effort: Pulmonary effort is normal. No respiratory distress. Breath sounds: Normal breath sounds. No wheezing. Abdominal: General: Bowel sounds are normal. Palpations: Abdomen is soft. There is no mass. Tenderness: There is no abdominal tenderness. Musculoskeletal: Cervical back: Neck supple. Right lower [...] normal. Judgment: Judgment normal. ASSESSMENT AND PLAN: Follow up in about 4 weeks (around 11/18/2024) for Recheck. Problem List Items Addressed This Visit Type 2 diabetes mellitus with other skin complications ([facility]) Has DM, and has HS Hypertension ([facility]) - Primary Please check blood pressure daily and record DASH diet Limit caffeine Take medication as directed Contact office if chest pain, pressure, dizziness, shortness of breath, swelling legs Recommend slow position changes Current meds: losartan, amlodipine, add carvedilol Relevant Medications carvedilol (Coreg) 3.125 MG tablet Hidradenitis suppurativa Continue with work w dermatology, Anxiety and depression ([facility]) Cont effexor, but increase dose to 150mg Take medication only as directed. This medication will take approximately 4-6 weeks to become effective. If any suicidal thoughts, thoughts of hurting others, or hallucinations contact the office or proceed to the Emergency Room for mental health evaluation. Medication may cause dry mouth, dizziness, and in some cases worsening in depression symptoms. Please contact the office if these occur. PHQ 9=8 BRYON 7=15 Relevant Medications venlafaxine XR (Effexor XR) 75 MG 24 hr capsule Body mass index (BMI) 50.0-59.9, adult ([facility]) Morbid (severe) obesity due to excess calories ([facility]) Discussed with patient their BMI (actual, verses recommended). We have also discussed lifestyle modifications: attempts to perform physical activity as chronic conditions allow, also to monitor dietary intake: increasing protein/fruits/veggies and lowering carb intake (unless contraindicated). Limit sodas, juices, and sugary drinks. Also discussed oral medications that can be utilized for weight loss, as well as surgical options for weight loss. He is somewhat stalled out in bariatric process Type 2 diabetes mellitus, without long-term current use of insulin ([facility] [place]) Check blood sugars daily, notify if <70 [...] diet low in carbohydrates, and simple sugars. Current meds: asa, farxiga, HUSSEIN, ARB, mounjaro A1c: 10.3% Increase mounjaro Relevant Medications Continuous Glucose Tester Armature Or Fields (FreeStyle Mihai 3 Golden Eagle) device Continuous Glucose Sensor (FreeStyle Mihai 3 Sensor) misc Tirzepatide (Mounjaro) 7.5 MG/0.5ML solution auto-injector Other Relevant Orders POCT glycosylated hemoglobin (Hb A1C) docked device (Completed) Type 2 diabetes mellitus with diabetic polyneuropathy ([facility] [place] Current med: gabapentin Recommend freq foot checks, and adequate glycemic control Associated Problem(s): Anxiety and depression ([facility] [place]) Cont effexor, but increase dose to 150mg Take medication only as directed. This medication will take approximately 4-6 weeks to become effective. If any suicidal thoughts, thoughts of hurting others, or hallucinations contact the office or proceed to the Emergency Room for mental health evaluation. Medication may cause dry mouth, dizziness, and in some cases worsening in depression symptoms. Please contact the office if these occur. PHQ 9=8 BRYON 7=15 Associated Problem(s): Hidradenitis suppurativa Continue with work w dermatology, Associated Problem(s): Type 2 diabetes mellitus, without [...] diet low in carbohydrates, and simple sugars. Current meds: asa, farxiga, HUSSEIN, ARB, mounjaro A1c: 10.3% Increase mounjaro Associated Problem(s): Type 2 diabetes mellitus with other skin complications ([facility]/HCC) Has DM, and has HS Associated Problem(s): Morbid (severe) obesity due to excess calories ([facility] [place] Discussed with patient their BMI (actual, verses recommended). We have also discussed lifestyle modifications: attempts to perform physical activity as chronic conditions allow, also to monitor dietary intake: increasing protein/fruits/veggies and lowering carb intake (unless contraindicated). Limit sodas, juices, and sugary drinks. Also discussed oral medications that can be utilized for weight loss, as well as surgical options for weight loss. He is somewhat stalled out in bariatric process Associated Problem(s): Hypertension (CMS/HCC) Please check blood pressure daily and record DASH diet Limit caffeine Take medication as directed Contact office if chest pain, pressure, dizziness, shortness of breath, swelling legs Recommend slow position changes Current meds: losartan, amlodipine, add carvedilol Associated Problem(s): Type 2 diabetes mellitus with diabetic polyneuropathy (CMS/HCC) Current med: gabapentin Recommend freq foot checks, and adequate glycemic control documented in this encounter [facility] 10-21-2024 Instructions Joan Carrillo NP - 10/21/2024 4:30 PM EST Med changes: increase mounjaro to 7.5mg weekly Adding carvedilol 3.125mg twice a day Increase dose of effexor XR to a total 150mg daily (2 75mg pills) documented in this encounter [facility] 09-28-2024 History of Present illness Narrative Images [...] Visit: 3 months documented in this encounter [facility] 08-19-2024 History of Present illness Narrative Associated Problem(s): Morbid obesity (CMS/HCC) He was supposed to be referred for weight loss surgery through [facility] This process seems to be no progressing, states he has called them and no response Associated Problem(s): Hidradenitis suppurativa New derm in 10/03 Will keep on doxy at this time Monitor for fever, monitor blood sugars as well Associated Problem(s): Hypertension ([facility] [place]) Please check blood pressure daily and record DASH diet Limit caffeine Take medication as directed Contact office if chest pain, pressure, dizziness, shortness of breath, swelling legs Recommend slow position changes Current meds: losartan, amlodipine, increase 10mg amlodipine Associated Problem(s): Type 2 diabetes mellitus, without long-term current use of insulin ([facility] [place] Check blood sugars daily, notify if <70 [...] being taken. He does not see a civil engineering director.Eye exam is not current. Hypertension This is [...] There is no history of kidney disease, CAD/[place] or PVD. SUBJECTIVE: MEDICATIONS: Current Outpatient Medications [...] Medical History: Diagnosis Date Anxiety and depression (CMS/HCC) 09/24/2023 Arthritis Boils of multiple sites 09/24/2023 Elevated serum protein level 09/24/2023 Hidradenitis suppurativa 09/24/2023 Hypertension ([facility] [place]) Hypertriglyceridemia ([facility]CC) 09/24/2023 Lung nodule 09/24/2023 Overactive bladder Pruritus Type 2 diabetes mellitus with skin complication, without long-term current use of insulin ([facility] [place] 08/27/2023 Past Surgical History: Procedure Laterality Date [...] Problem List Items Addressed This Visit Hypertension ([facility] [place] Please check blood pressure daily and record [...] blood sugars as well BMI 50.0-59.9, adult ([facility] [place]) Morbid obesity ([facility] [place]) He was supposed to be referred for weight loss surgery through [facility] This process seems to be no progressing, states he has called them and no response Type 2 diabetes mellitus, without long-term current use of insulin ([facility] [place]) - Primary Check blood sugars daily, notify [...] MG/0.5ML solution auto-injector documented in this encounter [facility] 08-19-2024 Instructions Joan Carrillo NP - 08/19/2024 4:15 PM EST Finish atb, keep dermatology appt Will see about the mounjaro Increase your amlodipine to 10mg daily continue all other meds documented in this encounter [facility] 08-05-2024 History of Present illness Narrative Associated [...] this, I did provide the number to [facility] dermatology: [phone], and the provider's name was Alexandre Daniel and that he could call to schedule the appt. He took down the phone number and will call I will send in atb for him documented in this encounter [facility] 07-24-2024 History of Present illness Narrative Associated Problem(s): Lung nodule Repeat in 01/31 documented in this encounter [facility] 06-30-2024 Note Progress Note-Physic fredy Patient: CHRISTIAN [...] Type II diabetes mellitus / SNOMED CT 370619445 / Confirmed Smoker / SNOMED CT 637505791 / Confirmed Encounter for screening colonoscopy / SNOMED CT 284078633 / Confirmed Morbid obesity / SNOMED CT 001443421 / Confirmed Melena / SNOMED CT 1035996 / Confirmed Recurrent scrotal infection / SNOMED CT 6837737092 / Confirmed Abdominal hernia / SNOMED CT 41755638 / Confirmed Left groin mass / SNOMED CT 3066305955 / Confirmed Gastritis / SNOMED CT 1272632 / Confirmed Anxiety / SNOMED CT 38245066 / Confirmed Scrotal abscess / SNOMED CT 42425758 / Confirmed Resolved: At risk for falls / SNOMED CT 614356578 Problem added when Risk for Falls Careplan was initiated. Resolved due to patient discharge. Canceled: Orchitis / SNOMED CT 090406394 Canceled: Scrotal infection / SNOMED CT 6017559179 Canceled: Epididymitis / SNOMED CT 55407322 Histories Procedure history: Colonoscopy ([id number]) on 04/03/2024 at 48 Years. Comments: 04/03/2024 15:52 EDT - Rupesh WILHELM, Flores normal Esophagogastroduodenoscopy ([id number]) on 04/03/2024 at 48 Years. Comments: 04/03/2024 15:53 EDT Flores Richardson RN duodenitis, antral biiopsy Drainage of scrotal abscess ([id number]) on 03/21/2016 at 40 Years. Tonsillectomy ([id number]). Social History Social & Psychosocial Habits Alcohol [...] adequate air exchange. Cardiovascular: Regular rhythm. Plan [place] [employer] Anesthesiologists (ASA) physical status classification: Class IV. Anesthetic Preoperative Plan: Anesthesia General. [facility] Comment on above: Result Comment: Elec tronically Signed By: Roverto Sharpe DO, Ambrosio Bryson\.br\Date and Time Signed: 06/30/24 17:45 EDT 06-30-2024 [...] when meets criteria ( To home ). [facility] Comment on above: Result Comment: Elec [...] is negative. Procedure history: EGD - esophagogastroduodenoscopy ([id number]) on 06/29/2024 at 48 Years. Colonoscopy ([id number]) on 04/03/2024 at 48 Years. Comments: 04/03/2024 15:52 EDT - Rupesh WILHELM, Flores normal Esophagogastroduodenoscopy ([id number]) on 04/03/2024 at 48 Years. Comments: 04/03/2024 15:53 EDT - Rupesh WILHELM, Flores duodenitis, antral biiopsy Drainage of scrotal abscess ([id number]) on 03/21/2016 at 40 Years. Tonsillectomy ([id number]). Social History Social & Psychosocial Habits Alcohol [...] Progressing as expected. H&P not OP note [facility] Comment on above: Result Comment: Elec tronically Signed By: Karina MARTINEZ, Demarco Jack.br\Date and Time Signed: 06/29/24 10:26 EDT 06-29-2024 [...] also be tested for impaired gastrointestinal motility. [facility] 06-25-2024 History of Present illness Narrative Associated Problem(s): Anxiety and depression (CMS/HCC) Cont effexor Associated Problem(s): Hidradenitis suppurativa Is on bactrim BID Will refer to new derematologist Associated Problem(s): Morbid obesity (CMS/HCC) Weight loss surgery Associated Problem(s): Type 2 diabetes mellitus, without long-term current use of insulin ([facility]) Will increase farxiga to 10mg daily Cont current meds Associated Problem(s): Gastroesophageal reflux disease without esophagitis Cont PPI Associated Problem(s): Hypertension (CMS/HCC) Not at goal, will cont losartan Add amlodipine 5mg Fu in 4 weeks Limit sodium intake Pt would like a new referral to a different linen worker Pt would like to talk about his [...] being taken. He does not see a civil engineering director.Eye exam is not current. SUBJECTIVE: MEDICATIONS: Current [...] Medical History: Diagnosis Date Anxiety and depression ([facility] [place]) 09/24/2023 Arthritis Boils of multiple sites 09/24/2023 Elevated serum protein level 09/24/2023 Hidradenitis suppurativa 09/24/2023 Hypertension ([facility] [place] Hypertriglyceridemia ([facility] [place]) 09/24/2023 Lung nodule 09/24/2023 Overactive bladder Pruritus Type 2 diabetes mellitus with skin complication, without long-term current use of insulin ([facility] [place]) 08/27/2023 No past surgical history on file. [...] 300 MG capsule documented in this encounter [facility] 04-04-2024 Note Progress Note-Physic fredy Patient: CHRISTIAN [...] Type II diabetes mellitus / SNOMED CT 553832430 / Confirmed Smoker / SNOMED CT 232071298 / Confirmed Encounter for screening colonoscopy / SNOMED CT 552286266 / Confirmed Morbid obesity / SNOMED CT 608134117 / Confirmed Melena / SNOMED CT 1027106 / Confirmed Recurrent scrotal infection / SNOMED CT 6769751218 / Confirmed Abdominal hernia / SNOMED CT 95232931 / Confirmed Left groin mass / SNOMED CT 4122841361 / Confirmed Anxiety / SNOMED CT 23586972 / Confirmed Scrotal abscess / SNOMED CT 16253170 / Confirmed Resolved: At risk for falls / SNOMED CT 649677200 Problem added when Risk for Falls Careplan was initiated. Resolved due to patient discharge. Canceled: Orchitis / SNOMED CT 078182679 Canceled: Scrotal infection / SNOMED CT 1007841204 Canceled: Epididymitis / SNOMED CT 78695440 Histories Procedure history: Drainage of scrotal abscess ([id number]) on 03/21/2016 at 40 Years. Tonsillectomy ([id number]). Social History Social & Psychosocial Habits Alcohol [...] adequate air exchange. Cardiovascular: Regular rhythm. Plan [place] [employer] Anesthesiologists (ASA) physical status classification: Class IV. Anesthetic Preoperative Plan: Anesthesia General. [facility] Comment on above: Result Comment: Elec [...] when meets criteria ( To home ). [facility] Comment on above: Result Comment: Elec tronically Signed By: Ambrosio Layne Jr, DO.jeniffer\Date and Time Signed: 04/04/24 10:17 EDT 04-03-2024 [...] activities are safe for you. ? Take lksu-zqi-znnstwl and prescription medicines only as told by [...] provider. Document Revised: 12/05/2022 Document Reviewed: 12/05/2022 [employer] Patient Education ? 2022 [employer] Infectious Disease Duodenitis Duodenitis is inflammation [...] scarring or [place] (more content not included)... [facility] 03-22-2024 Note Discharge Summary DISCHARGE SUMMARY [place] [id number] CHRISTIAN SHELBY Date of : 1975 48 [...] 0 Refill(s). REASON FOR HOSPITALIZATION: CHRISTIAN SHELBY Jayde is a 48 Years-old Male with a PMHx of obesity and diabetes. Patient was last seen at [facility] on 03/04 when he was admitted for observation given pain and possible obstruction of his known chronic ventral hernia (over 20 years). At that time, the hernia was partially reduced and he was able to tolerate a diet without issue and discharged home. This morning he was working on his banana room cutter on the ground, and when he got [...] 03/16/2024: +flatus, +nausea but no vomiting. on AIRDOX FITTER for pain 03/17/2024: tolerating diet, +BM 03/18/2024: [...] FOLLOW UP: With: Address: When: trauma clinic [address] [place] [address] 3, second floor, [address] [place] [address] 03/25/2024 9:30 AM Comments: Call to schedule/confirm followup appointment for wound check and GHULAM drain removal Other indicated follow up and instructions for scheduling: F/U with Dr. Jessica Crawford for bariatric surgery at [facility], her o (more content not included)... [facility] Comment on above: Result Comment: Elec [...] 03/16/2024: +flatus, +nausea but no vomiting. 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 This patient's plan of care was discussed [...] PRN venlafaxine 75 mg Cap-ER, Oral, Daily [facility] Comment on above: Result Comment: Elec [...] SARS-CoV-2 (COVID-19) mRNA BNT-162b2 vax 03/31/2021 Recorded [facility] Comment on above: Result Comment: Elec tronically Signed By: Karina MARTINEZ, Demarco Herrera\Date and Time Signed: 03/20/24 15:24 EDT 03-19-2024 Hospital Discharge instructions Patient Education 03/19/2024 15:03:31 [facility] ([facility]) [place], [place] Neno Reddy MD, FACS DISCHARGE INSTRUCTIONS [...] 15:03:21 Open Hernia Repair, Adult, Care After, Lgjq-hr-Uozb Open Hernia Repair, Adult, Care After What [...] have problems, call your doctor. Medicines Take qssj-gro-dzzljey and prescription medicines only as told by [...] cannot use soap and water, use hand seat coverer. ?Change your bandage. ?Leave stitches or skin [...] provider. Document Revised: 04/10/2021 Document Reviewed: 04/10/2021 [employer] Patient Education 2022 [employer]. 03/17/2024 07:59:08 Diet - Basic Carbohydrate Counting [...] hot dog bun (1 ounce) 3/4 cup pxpjg-dd-ssq cereal 1/2 cup cooked cereal 1 cup [...] Up Care 03/14/2024 17:40:12 With:trauma clinic Address: [address] [place] [address], second floor, [address] [place] [address]- [phone] When:03/25/2024 09:30:00 Comments:Call to schedule/confirm followup appointment for wound check and GHULAM drain removal [facility] 03-18-2024 Note Progress Note-Physic fredy Basic Information CHRISTIAN SHELBY Jayde is a 48 Years-old Male with a [...] Low (03/16/24 06:28:00) Hct: 35.3 % Low (03/16/24:28:00) MCV: 84.4 fL (03/16/24:28:00) MCH: 27.9 pg (03/16/24:28:00) MCHC: 33.1 gm/dL (03/16/24:28:00) RDW: 16.3 % High (03/16/24::00) Platelet: 340 E9/L (03/16/24::00) MPV: 7.1 fL (03/16/24::00) Neutro Auto: 82.1 % High (03/16/24::) Lymph Auto: 6.3 % Low (03/16/24::00) [place] Auto: 11.4 % (03/16/24:28:00) Eos Auto: 0 % (03/16/24::) Basophil Auto: 0.2 % (03/16/24:28:00) Neutro Absolute: 13.5 E9/L High (03/16/24:28:00) Lymph Absolute: 1 E9/L (03/16/24:28:00) [place] Absolute: 1.9 E9/L High (03/16/24:28:00) Eos Absolute: 0 E9/L (03/16/24:28:00) Basophil Absolute: 0 E9/L (03/16/24:28:00) Glucose Lvl: 279 mg/dL High (03/16/24:28:00) BUN: 17 mg/dL (03/16/24 06:28:00) Creatinine: 0.8 mg/dL (03/16/24:28:00) eGFR: 109 mL/min/1.73 m2 (03/16/24:28:00) BUN/Creat Ratio: 21 High (03/16/24:28:00) Sodium Lvl: 137 mmol/L (03/16/24 06:28:00) Potassium Lvl: 4 mmol/L (03/16/24 06:28:00) Chloride: 105 mmol/L (03/16/24 06:28:00) CO2: 22 mmol/L (03/16/24 06:28:00) AGAP: 14 mEq/L (03/16/24 06:28:00) Calcium Lvl: 7.7 mg/dL Low (03/16/24 06:28:00) Magnesium: 1.8 mg/dL (03/16/24 06:28:00) Glucose Cap: 261 mg/dL High (03/16/24 07:34:00) POC Device SN: [id number] (03/16/24 07:34:00) POC User ID: [id number] (03/16/24 07:34:00) POC Username: POC Username (03/16/24 [...] Reactive leukocytosis post-operati (more content not included)... [facility] Comment on above: Result Comment: Elec tronically Signed By: Kelton Montenegro PA-C\.br\Date and Time Signed: 03/16/24 10:33 EDT\.br\Electronically Co-Signed By: Silvio Sharp DO\.br\Date and Time Co-Signed: 03/18/24 13:27 EDT 03-18-2024 Note Progress Note-Sree daniel Basic Information 48-year-old male with asthma history [...] 03/16/2024: +flatus, +nausea but no vomiting. on AIRDOX FITTER for pain Subjective No acute events overnight. [...] Lymph Auto: 8.1 % Low (03/17/24 06:09:00) [place] Auto: 9.8 % (03/17/24 06:09:00) Eos Auto: 0.1 % (03/17/24 06:09:00) Basophil Auto: 0.2 % (03/17/24 06:09:00) Neutro Absolute: 12.9 E9/L High (03/17/24 06:09:00) Lymph Absolute: 1.3 E9/L (03/17/24 06:09:00) [place] Absolute: 1.6 E9/L High (03/17/24 06:09:00) Eos [...] mg/dL High (03/17/24 07:58:00) POC Device SN: [id number] (03/17/24 07:58:00) POC User ID: [id number] (03/17/24 07:58:00) POC Username: GREG FOWLER (03/17/24 [...] date 04/16/24 10 (more content not included)... [facility] Comment on above: Result Comment: Elec [...] advance to regular diet today. - DC AIRDOX FITTER pump. 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 This patient's plan of care was discussed with Trauma/Emergency General Surgery attending, Dr. Sharp Extracted from: Title:Progress/SOAP Note Author:Lan BEAN, Anoop Dahl Date:03/16/24 Patient passing flatus post- operatively, pain appropriately controlled. Reactive leukocytosis post-operatively. BG levels remain elevated. 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 This patient's plan of care was discussed with Trauma/Emergency General Surgery attending, Dr. Sharp Extracted from: Title:ANES Post-operative Note---General Author: Ambrosio Layne Jr, DO Date:03/15/24 Plan Transfer/Discharge: Transfer/Discharge Discharge when meets criteria ( From PACU to floor ). Extracted from: Title:ANES Pre-operative Note 2022 Author:Ambrosio Layne Jr, DO Date:03/15/24 Plan [place] [employer] Anesthesiologists (ASA) physical status classification: [...] Clinic Appointment Type:Trauma Initial Follow Up (FT) [facility]07-08-2024 NoteInterdisciplinary Note - PT PT Evaluation completed with an [facility] score of 17. Pt was able to perform bed mobility with CGA/Min. Pt was able to stand with CGA and able to ambulate 4 small steps. Will trial an AD for more stability. Pt unsafe to return home this date, but will follow daily. [facility] NoteInterdisciplinary Note - OT OT [facility] six clicks score 14 = SNF. However, anticipate quick progress after post op pain has improved and pt may be more appropriate for HH services at time of Dc. Pt requires increased assist w/all Adls and transfers when compared to prior level of function. Inpatient OT services to follow daily to progress w/ function as pain becomes more tolerable.[facility]07-08-2024 NoteProgress Note-Physician Patient: CHRISTIAN SHELBY Age: [...] Type II diabetes mellitus / SNOMED CT 621994166 / Confirmed Smoker / SNOMED CT 984356352 / Confirmed Morbid obesity / SNOMED CT 300280463 / Confirmed Recurrent scrotal infection / SNOMED CT 7475472071 / Confirmed Abdominal hernia / SNOMED CT 68665066 / Confirmed Left groin mass / SNOMED CT 7541102239 / Confirmed Anxiety / SNOMED CT 81975643 / Confirmed Scrotal abscess / SNOMED CT 04306292 / Confirmed Canceled: Orchitis / SNOMED CT 189129535 Canceled: Scrotal infection / SNOMED CT 0374918837 Canceled: Epididymitis / SNOMED CT 22309357 Histories Procedure history: Drainage of scrotal abscess ([id number]) on 03/21/2016 at 40 Years. Tonsillectomy ([id number]). Social History Social & Psychosocial Habits Alcohol [...] adequate air exchange. Cardiovascular: Regular rhythm. Plan [place] [employer] Anesthesiologists (ASA) physical status classification: Class IV, E. Anesthetic Preoperative Plan: Anesthesia General.[facility] Comment on above:Result Comment: Electronically Signed By: Ambrosio Layne Jr, DO\.jeniffer\Date and Time Signed: 03/16/24 11:14 [id number] NoteProgress Note-Physician Patient: CHRISTIAN SHELBY Age: 48 years Sex: Male : 1975 Associated Diagnoses: None Author: Ambrosio Layne Jr, DO Postoperative Information Postoperative disposition: Postoperative disposition: To PACU. Optimetrix number: Optimetrix number [id number]. Anesthetic utilized: General. Health Status Allergies: Allergic [...] meets criteria ( From PACU to floor ).[facility] Comment: Electronically Signed By: Ambrosio Layne Jr, DO\.br\Date and Time Signed: 03/16/24 11:14 [id number] NoteProgress Note-Nurse Patient reports vomiting. Nurse responded to room to find patient gagging. Upon inspection of oral cavity, NG tube was found coiled in the back of throat. NG tube removed. Dr. West notified and advised to leave NG tube out at this time. Will continue to monitor.[facility]07-07-[facility]24 NoteProgress Note-Physician GENERAL INFORMATION EMERGENCY GENERAL SURGERY - STAFF PROGRESS NOTE Patient Name: CHRISTIAN SHELBY Admission Date: 03/14/2024 17:37:38 Patient seen and examined on 03/15/2024 08:00 INTERVAL HISTORY/EVENTS Background: CHRISTIAN SHELBY is a 48 Years-old Male with a PMHx of obesity and diabetes. Patient was last seen at [facility] on 03/04 when he was admitted for observation given pain and possible obstruction of hisknown chronic ventral hernia (over 20 years). At that time, the hernia was partially reduced and hewas able to tolerate a diet without issue and discharged home. This morning he was working on his banana room cutter on the ground, and when he got [...] 07:42) Heart Rate Monitored 85 bpm (MAR 15:44) SBP H 240 mmHg (MAR 15 08:52) DBP H 119 mmHg (MAR 15:52) Weight 181.8 kg (MAR 14:52) BMI 52.88 (MAR 14:52) GENERAL: alert, pleasant, [...] 41.8 % (03/15/24 06:28:00) MCV: 83.2 fL (03/15/24:28:00) MCH: 27.9 pg (03/15/24 06:28:00) MCHC: 33.5 gm/dL (03/15/24::00) RDW: 16.1 % High (03/15/24 06:28:00) Platelet: 312 E9/L (03/15/24 06:28:00) MPV: 7 fL (03/15/24 06::00) Neutro Auto: 81.2 % High (03/15/24::00) Lymph Auto: 12.2 % Low (03/15/24::00) Chelan Auto: 6.2 % (03/15/24::00) Eos Auto: 0.2 % (03/15/24::) Basophil Auto: 0.2 % (03/15/24::00) Neutro Absolute: 10.3 E9/L High (03/15/24::00) Lymph Absolute: 1.5 E9/L (03/15/24::00) Chelan Absolute: 0.8 E9/L (03/15/24:28:00) Eos Absolute: 0 E9/L (03/15/24::00) Basophil Absolute: 0 E9/L (03/15/24::00) PT: 10.2 second(s) (03/14/24 18:25:00) INR: 0.91 (03/14/24 18:25:00) PTT: 35.3 second(s) (03/14/24 18:25:00) Glucose Lvl: 215 mg/dL High (03/15/24:28:00) BUN: 12 mg/dL (03/15/24 06:28:00) Creatinine: 0.6 mg/dL (03/15/24 06:28:00) eGFR: 119 mL/min/1.73 m2 (03/15/24 06:28:00) BUN/Creat Ratio: 20 (03/15/24 06:28:00) Sodium Lvl: 135 mmol/L (03/15/24 06:28:00) Potassium Lvl: 4 mmol/L (03/15/24 06:28:00) Chloride: 103 mmol/L (03/15/24:28:00) CO2: 22 mmol/L (03/15/24:28:00) AGAP: 14 mEq/L (03/15/24::00) Calcium Lvl: 8.3 mg/dL Low (03/15/24:28:00) Alk Phos: 71 Int._Unit/L (03/14/24 18:25:00) ALT: 31 Int._Unit/L (03/14/24 18:25:00) AST: 19 Int._Unit/L (03/14/24 18:25:00) Total Protein: 7.5 gm/dL (03/14/24:25:00) Albumin Lvl: 3.8 gm/dL (03/14/24:25:00) Globulin: 3.7 gm/dL (03/14/24 18:25:) A/G Ratio: 1 Low (03/14/24:25:00) Bili Total: 0.5 mg/dL (03/14/24 18:25:00) Bili Direct: 0.1 mg/dL (03/14/24 18:25:00) Bili Indirect: 0.4 mg/dL (03/14/24:25:00) Phosphorus: 2.6 mg/dL (03/15/24::00) Lipase Lvl: 10 unit/L Low (03/14/24 18:25:00) Lactic Acid Lvl: 0.8 mmol/L (03/15/24::00) Magnesium: 1.8 mg/dL (03/15/24::00) Glucose (more content not included)...[facility]:Result Comment: Electronically Signed By: Jason West MD\.br\Date and Time Signed: 03/15/24 09:33 [id number] NoteProgress Note-Nurse 0230 - This RN communicated [...] and was acknowledged. This RN provides on-going care.[facility]07-06-2024 NoteHistory and Physical EMERGENCY GENERAL SURGERY CONSULT / H&P Patient Name: CHRISTIAN SHELBY Admission Date: 03/14/2024 17:37:38 Chief Complaint: Abdominal pain Referring Physician: Dr. Caceres Patient seen and examined on 03/14/2024 21:00 HISTORY OF PRESENT ILLNESS CHRISTIAN SHELBY is a 48 Years-old Male with a PMHx of obesity and diabetes. Patient was last seen at [facility] on 03/04 when he was admitted for observation given pain and possible obstruction of hisknown chronic ventral hernia (over 20 years). At that time, the hernia was partially reduced and hewas able to tolerate a diet without issue and discharged home. This morning he was working on his banana room cutter on the ground, and when he got [...] (03/14/24) MCHC: 34.6 (03/14/24) MCV: 84.0 (03/14/24) Chelan Absolute: 0.7 (03/14/24) Chelan Auto: 4.8 (03/14/24) MPV: 7.1 (03/14/24) Neutro Absolute: 11.9 (03/14/24) Neutro Auto: 85.8 (03/14/24) Platelet: 314.0 (03/14/24) Potassium Lvl: 4.2 (03/14/24) PT: 10.2 (03/14/24) PTT: 35.3 (03/14/24) RBC: 5.1 (03/14/24) RDW: 15.9 (03/14/24) Sodium Lvl: 135 (03/14/24) Total (more content not included)...[facility] HospitalComment on above: Result Comment: Electronically Signed By: Brett MARTINEZ, Jason García\.br\Date and Time Signed: 03/14/24 21:53 [id number] NoteProgress Note-Nurse Dr. Caceres aware of patient [facility]07-06-2024 Note Progress Note-Nurse Patient to [facility]-2024 NoteProgress Note-Nurse Dr. Ferreira aware patient had a dose of Zofran when arrived and verbalized to give the other dose.[facility]06-27-2024 NoteDischarge [place] [address] CHRISTIAN SHELBY Date of : 1975 48 [...] FOLLOW UP: With: Address: When: trauma clinic [address] [place] [address] 3, second floor, [address] [place] [id number] , only if needed Comments: Please call [...] reasonsto return to clinic or to emergency room.[facility] HospitalComment on above: Result Comment: Electronically Signed By: Leandra Wallace PA-C\.br\Date and Time Signed: 03/05/24 09:25 EDT\.br\Electronically Co-Signed By: Esvin Hill MD\.br\Date and Time Co-Signed: 03/05/2413:40 [id number] Hospital Discharge instructions Patient Education 03/05/2024 09:09:24 [...] to keep your urine pale yellow. Take dmxy-nod-djdcusa or prescription medicines. Eat foods that are [...] about any changes or new symptoms. Take ahgr-fsh-ryizdxv and prescription medicines only as told by [...] provider. Document Revised: 04/03/2021 Document Reviewed: 04/03/2021 [employer] Patient Education 2022 [employer]. Follow Up Care 03/04/2024 13:49:43 With:JOAN CARRILLO Address: [address] [place] [address] [phone] Business (1) When:7 to 10 days Comments:Call for followup appointmentCall physician if symptoms worsen With:trauma clinic Address: [address] [place] [address] 3, second floor, [address] [place] [address]- [phone] When: only if needed Comments:Please call to make follow up appointment if you have questions or concerns. [facility]06-27-2024 NoteHistory and Physical EMERGENCY GENERAL SURGERY CONSULT [...] (03/04/24) MCHC: 32.9 (03/04/24) MCV: 84.5 (03/04/24) Chelan Absolute: 0.6 (03/04/24) Chelan Auto: 3.9 (03/04/24) MPV: 7.2 (03/04/24) Neutro Absolute: 13.9 (03/04/24) Neutro Auto: 88.3 (03/04/24) Platelet: 313.0 (03/04/24) Potassium Lvl: 4.3 (03/04/24) RBC: 5.7 (03/04/24) RDW: 15.9 (03/04/24) Sodium Lvl: 133 (03/04/24) Total Protein: 8.2 (03/04/24) WBC: 15.8 (03/04/24) RADIOLOGY -- CT Abdomen/Pelvis w/ Contrast 03/04/24 16:49:06 IMPRESSION: Findings concerning for developing small bowel obstruction secondary to the ventral (more content not included)...[facility] HospitalComment on above:Result Comment: Electronically Signed By: Leandra Wallace PA-C\.br\Date and Time Signed: 03/04/24 17:17 EDT\.br\Electronically Co-Signed By: Liz MARTINEZ, Esvin Pierre\.br\Date and Time Co-Signed: 03/05/2409:18 [id number] Evaluation + Plan noteExtracted from: Title:ED Note [...] Place in Status UA with Cult Rflx [facility]12-13-2023 NoteMicrobiology PROCEDURE: Blood Culture Charcoal [R1] SOURCE: Blood BODY SITE: Hand R COLLECTED DATE/TIME: 08/13/2023 20:17 EST RECEIVED DATE/TIME: 08/13/2023 21:08 EST START DATE/TIME: 08/13/2023 21:08 EST FREE TEXT SOURCE: Comfort BEAN, Baljit Moyer PA-C, Baljit FINAL REPORTS Final Report [] Verified Date/Time: 08/21/2023 07:00 EST No growth at 7 days. Performing Locations R1: This test was performed at: [facility], [address] [place] [address], [address] [place] [address], AzwnyoPike Community HospitalComment on above:Performed By: #### [id number] ####[facility] [address] [place] [address] [id number] NoteMicrobiology PROCEDURE: Blood Culture Charcoal [R1] SOURCE: Blood BODY SITE: Hand L COLLECTED DATE/TIME: 08/13/2023 20:10 EST RECEIVED DATE/TIME: 08/13/2023 21:08 EST START DATE/TIME: 08/13/2023 21:08 EST FREE TEXT SOURCE: Comfort BEAN, Baljit Fontanez PA-C FINAL REPORTS Final Report [] Verified Date/Time: 08/21/2023 07:00 EST No growth at 7 days. Performing Locations R1: This test was performed at: [facility], [address] [place] [address], [address] , [place], VtzrvoPike Community HospitalComment on above:Performed By: #### [id number] ####[facility] [address] [place], [place] [id number] NoteDISCHARGE SUMMARY [address] [address] CHRISTIAN SHELBY Date of : 1975 47 [...] FOLLOW UP: With: Address: When: trauma clinic [address] [place] [address] 3, second floor, [address] [place], [place] [phone] , only if needed Comments: Please call to make follow up appointment if you have questions or concerns. Our office has placed a referral to the bariatric clinic at [facility], if you do not hear from [facility] please contact this office and we can [...] and referral placed for bariatric evaluation at [facility] to help improve his metabolic syndromePike Community HospitalComment on above:Result Comment: Electronically Signed By: Leandra Wallace PA-C\.br\Date and Time Signed: 08/14/23 14:13 EST\.br\Electronically Co-Signed By: Alesha Christensen MD\.br\Date and Time Co-Signed: 08/14/23 17:04 [id number] NoteACUTE CARE SURGERY CONSULT NOTE CHIEF COMPLAINT: [...] % High (08/13/23 19:00:00) MCV: 84.8 fL (08/13/23:00:00) MCH: 27.1 pg (08/13/23:00:00) MCHC: 32 gm/dL (08/13/23 19:00:00) RDW: 15.2 % High (08/13/23:00:00) Platelet: 361 E9/L (08/13/23:00:00) MPV: 7.5 fL (08/13/23:00:00) Neutro Auto: 81.6 % High (08/13/23:00:00) Lymph Auto: 10.7 % Low (08/13/23:00:00) Chelan Auto: 7.5 % (08/13/23:00:00) Eos Auto: 0.1 % (08/13/23:00:00) Basophil Auto: 0.1 % (08/13/23:00:00) Neutro Absolute: 12.8 E9/L High (08/13/23 19:00:00) Lymph Absolute: 1.7 E9/L (08/13/23 19:00:00) Chelan Absolute: 1.2 E9/L High (08/13/23 19:00:00) Eos Absolute: 0 E9/L (08/13/23 19:00:00) Basophil Absolute: 0 E9/L (08/13/23:00:00) PT: 11.4 second(s) (08/13/23 19:00:00) INR: 1 (08/13/23:00:00) PTT: 31.3 second(s) (08/13/23 19:00:00) Glucose Lvl: 321 mg/dL High (08/13/23 19:00:00) BUN: 12 mg/dL (08/13/23 19:00:00) Creatinine: 0.9 mg/dL (08/13/23 19:00:00) eGFR: 106 mL/min/1.73 m2 (08/13/23 19:00:00) BUN/Creat Ratio: 13 (12/05/23 19:00:00) Sodium Lvl: 132 mmol/L Low (08/13/23 19:00:00) Potassium Lvl: 3.9 mmol/L (08/13/23 19:00:00) Chloride: 98 mmol/L Low (08/13/23 19:00:00) CO2: 17 mmol/L Low (08/13/23 19:00:00) AGAP: 21 mEq/L High (08/13/23 19:00:00) Calcium Lvl: 9.1 mg/dL (08/13/23 19:00:00) Alk Phos: 73 Int._Unit/L (08/13/23 19:00:00) ALT: 36 Int._Unit/L (08/13/23:00:00) AST: 28 Int._Unit/L (08/13/23:00:00) Total Protein: 8.7 gm/dL High (08/13/23:00:00) Albumin Lvl: 4.1 gm/dL (08/13/23 19:00:00) Globulin: [...] free air, no thick (more content not included)...[facility] Comment on above:Result Comment: Electronically Signed By: Amparo MARTINEZ, Alesha Nieves.jeniffer\Date and Time Signed: 08/13/23 22:31 [id number] Hospital Discharge instructions Patient Education 11/05/2022 10:52:43 [...] 12/02/2001 Document Revised: 12/17/2019 Document Reviewed: 07/22/2017 [employer] Patient Education 2020 [employer]. Follow Up Care 10/19/2022 10:02:10 With:KEVAN MARTINEZ, Salvatore Ribeiro, URL Address: [facility] [address] , [place] [address]- When: Unknown [facility] evalkcuxed + Plan note No data available for this section [facility] evalbwuntl note* Diagnosis Lung nodule- Primary Other diseases of lung, not elsewhere classified documented in this encounter [facility] HealthcareEvaluation note* Diagnosis Type 2 diabetes mellitus without complication, without long-term current use of insulin (CMS/HCC)- Primary documented in this encounter [facility] HealthcareEvaluation note* Diagnosis Type 2 diabetes mellitus with other skin complication, without long-term current use of insulin (CMS/HCC)- Primary Hypertriglyceridemia (CMS/HCC) Pure hyperglyceridemia Anxiety and depression (CMS/HCC) Morbid (severe) obesity due to excess calories (E66.01) Body mass index [BMI] 50.0-59.9, adult (Z68.43) Primary hypertension (CMS/HCC) Unspecified essential hypertension Hidradenitis suppurativa Hidradenitis Former tobacco use BMI 50.0-59.9, adult ([facility]) Ventral hernia without obstruction or gangrene Unspecified ventral hernia without mention of obstruction or gangrene Primary hypertension ([facility])- Primary Unspecified essential hypertension Anxiety and depression ([facility]) Type 2 diabetes mellitus with other skin complication, without long-term current use of insulin ([facility]) S/P hernia repair Other postprocedural status Hypertriglyceridemia ([facility]) Pure hyperglyceridemia Overactive bladder Hypertonicity of bladder Encounter for subsequent annual wellness visit (AWV) in Medicare patient Type 2 diabetes mellitus with other skin complication, without long-term current use of insulin ([facility])- Primary Hypertriglyceridemia ([facility] Pure hyperglyceridemia Anxiety and depression ([facility]) Primary hypertension ([facility]) Unspecified essential hypertension Overactive bladder Hypertonicity of bladder Gastroesophageal reflux disease without esophagitis Esophageal reflux Morbid obesity ([facility]) Morbid obesity BMI 50.0-59.9, adult ([facility]) Hidradenitis suppurativa Hidradenitis Neuropathy Mononeuritis of unspecified site documented in this encounter [facility] HealthcareEvaluation note* Diagnosis Type 2 diabetes mellitus with other skin complication, without long-term current use of insulin ([facility])- Primary Hypertriglyceridemia ([facility] Pure hyperglyceridemia Anxiety and depression ([facility]) Morbid (severe) obesity due to excess calories (E66.01) Body mass index [BMI] 50.0-59.9, adult (Z68.43) Primary hypertension ([facility]) Unspecified essential hypertension Hidradenitis suppurativa Hidradenitis Former tobacco use BMI 50.0-59.9, adult ([facility]) Ventral hernia without obstruction or gangrene Unspecified ventral hernia without mention of obstruction or gangrene Primary hypertension ([facility])- Primary Unspecified essential hypertension Anxiety and depression ([facility]) Type 2 diabetes mellitus with other skin complication, without long-term current use of insulin ([facility]) S/P hernia repair Other postprocedural status Hypertriglyceridemia ([facility]) Pure hyperglyceridemia Overactive bladder Hypertonicity of bladder Encounter for subsequent annual wellness visit (AWV) in Medicare patient Type 2 diabetes mellitus with other skin complication, without long-term current use of insulin ([facility])- Primary Hypertriglyceridemia (CMS/HCC) Pure hyperglyceridemia Anxiety and depression ([facility]/HCC) Primary hypertension (CMS/HCC) Unspecified essential hypertension Overactive bladder Hypertonicity of bladder Gastroesophageal reflux disease without esophagitis Esophageal reflux Morbid obesity (CMS/HCC) Morbid obesity BMI 50.0-59.9, adult ([facility]) Hidradenitis suppurativa Hidradenitis Neuropathy Mononeuritis of unspecified site Hidradenitis suppurativa- Primary Hidradenitis documented in this encounter [facility] HealthcareEvaluation note* Diagnosis Type 2 diabetes mellitus with other skin complication, without long-term current use of insulin ([facility])- Primary Hypertriglyceridemia (CMS/HCC) Pure hyperglyceridemia Anxiety and depression (CMS/HCC) Morbid (severe) obesity due to excess calories (E66.01) Body mass index [BMI] 50.0-59.9, adult (Z68.43) Primary hypertension ([facility]/HCC) Unspecified essential hypertension Hidradenitis suppurativa Hidradenitis Former tobacco use BMI 50.0-59.9, adult ([facility]) Ventral hernia without obstruction or gangrene Unspecified ventral hernia without mention of obstruction or gangrene Primary hypertension (CMS/HCC)- Primary Unspecified essential hypertension Anxiety and depression (CMS/HCC) Type 2 diabetes mellitus with other skin complication, without long-term current use of insulin ([facility]) S/P hernia repair Other postprocedural status Hypertriglyceridemia ([facility]) Pure hyperglyceridemia Overactive bladder Hypertonicity of bladder Encounter for subsequent annual wellness visit (AWV) in Medicare patient Type 2 diabetes mellitus with other skin complication, without long-term current use of insulin ([facility])- Primary Hypertriglyceridemia (CMS/HCC) Pure hyperglyceridemia Anxiety and depression (CMS/HCC) Primary hypertension (CMS/HCC) Unspecified essential hypertension Overactive bladder Hypertonicity of bladder Gastroesophageal reflux disease without esophagitis Esophageal reflux Morbid obesity ([facility]/HCC) Morbid obesity BMI 50.0-59.9, adult ([facility]) Hidradenitis suppurativa Hidradenitis Neuropathy Mononeuritis of unspecified site Type 2 diabetes mellitus with other skin complication, without long-term current use of insulin (CMS/HCC) documented in this encounter [facility] HealthcareEvaluation note* Diagnosis Type 2 diabetes [...] of insulin (CMS/HCC) documented in this encounter [facility] HealthcareEvaluation note* Diagnosis Type 2 diabetes [...] Unspecified essential hypertension documented in this encounter [facility] HealthcareEvaluation note* [...] complication, without long-term current use of insulin ([facility])- Primary Hypertriglyceridemia ([facility]/HCC) Pure hyperglyceridemia Anxiety and depression ([facility]/HCC) Primary hypertension ([facility]/HCC) Unspecified essential hypertension Overactive bladder Hypertonicity of bladder Gastroesophageal reflux disease without esophagitis Esophageal reflux Morbid obesity ([facility]) Morbid obesity BMI 50.0-59.9, adult ([facility]) Hidradenitis suppurativa Hidradenitis Neuropathy Mononeuritis of unspecified site Lung nodule- Primary Other diseases of lung, not elsewhere classified Primary hypertension ([facility]) Unspecified essential hypertension documented in this encounter [facility] HealthcareEvaluation note* Diagnosis Type 2 diabetes mellitus with other skin complication, without long-term current use of insulin ([facility])- Primary Hypertriglyceridemia (/HCC) Pure hyperglyceridemia Anxiety and depression ([facility]/HCC) Morbid (severe) obesity due to excess calories (E66.01) Body mass index [BMI] 50.0-59.9, adult (Z68.43) Primary hypertension ([facility]) Unspecified essential hypertension Hidradenitis suppurativa Hidradenitis Former tobacco use BMI 50.0-59.9, adult ([facility]) Ventral hernia without obstruction or gangrene Unspecified ventral hernia without mention of obstruction or gangrene Primary hypertension ([facility]/HCC)- Primary Unspecified essential hypertension Anxiety and depression ([facility]/) Type 2 diabetes mellitus with other skin complication, without long-term current use of insulin ([facility]) S/P hernia repair Other postprocedural status Hypertriglyceridemia (/[facility]) Pure hyperglyceridemia Overactive bladder Hypertonicity of bladder Encounter for subsequent annual wellness visit (AWV) in Medicare patient Type 2 diabetes mellitus with other skin complication, without long-term current use of insulin ([facility])- Primary Hypertriglyceridemia ([facility]/HCC) Pure hyperglyceridemia Anxiety and depression ([facility]) Primary hypertension ([facility]) Unspecified essential hypertension Overactive bladder Hypertonicity of bladder Gastroesophageal reflux disease without esophagitis Esophageal reflux Morbid obesity ([facility]) Morbid obesity BMI 50.0-59.9, adult ([facility]) Hidradenitis suppurativa Hidradenitis Neuropathy Mononeuritis of unspecified site Lung nodule- Primary Other diseases of lung, not elsewhere classified Primary hypertension (CMS/HCC) Unspecified essential hypertension documented in this encounter [facility] HealthcareEvaluation note* Diagnosis Type 2 diabetes [...] not elsewhere classified documented in this encounter [facility] HealthcareEvaluation note* Diagnosis Type 2 diabetes [...] disease without esophagitis Esophageal reflux Morbid obesity (CMS/) Morbid obesity BMI 50.0-59.9, adult ([facility]) Hidradenitis suppurativa Hidradenitis Neuropathy Mononeuritis of unspecified site Lung nodule- Primary Other diseases of lung, not elsewhere classified Hidradenitis suppurativa- Primary Hidradenitis documented in this encounter [facility] HealthcareEvaluation note* Diagnosis Type 2 diabetes mellitus with other skin complication, without long-term current use of insulin ([facility])- Primary Hypertriglyceridemia (CMS/HCC) Pure hyperglyceridemia Anxiety and [...] (CMS/HCC) Pure hyperglyceridemia Anxiety and depression (CMS/HCC) Type 2 diabetes mellitus with other skin complication, without long-term current use of insulin (CMS/HCC) Neuropathy Mononeuritis of unspecified site Overactive bladder Hypertonicity of bladder Gastroesophageal reflux disease without esophagitis Esophageal reflux documented in this encounter [facility] HealthcareEvaluation note* Diagnosis Type 2 diabetes [...] obesity (CMS/HCC) Morbid obesity BMI 50.0-59.9, adult ([facility]) Hidradenitis suppurativa Hidradenitis Neuropathy Mononeuritis of unspecified site Lung nodule- Primary Other diseases of lung, not elsewhere classified Hidradenitis suppurativa- Primary Hidradenitis Type 2 diabetes mellitus without complication, without long-term current use of insulin ([facility])- Primary documented in this encounter [facility] HealthcareEvaluation note* Diagnosis Type 2 diabetes mellitus with other skin complication, without long-term current use of insulin ([facility])- Primary Hypertriglyceridemia (CMS/HCC) Pure hyperglyceridemia Anxiety and depression (CMS/HCC) Morbid (severe) obesity due to excess calories (E66.01) Body mass index [BMI] 50.0-59.9, adult (Z68.43) Primary hypertension ([facility] [place]) Unspecified essential hypertension Hidradenitis suppurativa Hidradenitis Former tobacco use BMI 50.0-59.9, adult ([facility]) Ventral hernia without obstruction or gangrene Unspecified ventral hernia without mention of obstruction or gangrene Primary hypertension (CMS/HCC)- Primary Unspecified essential hypertension Anxiety and depression (CMS/HCC) Type 2 diabetes mellitus with other skin complication, without long-term current use of insulin (CMS/[facility] [place]) S/P hernia repair Other postprocedural status Hypertriglyceridemia (CMS/[facility] [place]) Pure hyperglyceridemia Overactive bladder Hypertonicity of bladder Encounter for subsequent annual wellness visit (AWV) in Medicare patient Type 2 diabetes mellitus with other skin complication, without long-term current use of insulin ([facility])- Primary Hypertriglyceridemia (CMS/HCC) Pure hyperglyceridemia Anxiety and depression (CMS/HCC) Primary hypertension (CMS/HCC) Unspecified essential hypertension Overactive bladder Hypertonicity of bladder Gastroesophageal reflux disease without esophagitis Esophageal reflux Morbid obesity (CMS/HCC) Morbid obesity BMI 50.0-59.9, adult ([facility] [place]) Hidradenitis suppurativa Hidradenitis Neuropathy Mononeuritis of unspecified site Lung nodule- Primary Other diseases of lung, not elsewhere classified Hidradenitis suppurativa- Primary Hidradenitis Hidradenitis suppurativa- Primary Hidradenitis documented in this encounter [facility] HealthcareEvaluation note* Diagnosis Type 2 diabetes [...] (CMS/HCC) Morbid obesity BMI 50.0-59.9, adult (CMS/HCC) documented in this encounter [facility] HealthcareEvaluation note* Diagnosis Type 2 diabetes [...] complication, without long-term current use of insulin ([facility] [place])- Primary Hypertriglyceridemia (CMS/HCC) Pure hyperglyceridemia Anxiety and depression (CMS/HCC) Primary hypertension (CMS/HCC) Unspecified essential hypertension Overactive bladder Hypertonicity of bladder Gastroesophageal reflux disease without esophagitis Esophageal reflux Morbid obesity (CMS/HCC) Morbid obesity BMI 50.0-59.9, adult ([facility]/HCC) Hidradenitis suppurativa Hidradenitis Neuropathy Mononeuritis of unspecified site Lung nodule- Primary Other diseases of lung, not elsewhere classified Hidradenitis suppurativa- Primary Hidradenitis Primary hypertension (CMS/HCC)- Primary Unspecified essential hypertension Type 2 diabetes mellitus without complication, without long-term current use of insulin ([facility]/HCC) Hidradenitis suppurativa Hidradenitis Morbid obesity (CMS/HCC) Morbid obesity BMI 50.0-59.9, adult ([facility] [place]) Gastroesophageal reflux disease without esophagitis Esophageal reflux Neuropathy Mononeuritis of unspecified site documented in this encounter [facility] HealthcareEvaluation note* Diagnosis Type 2 diabetes mellitus with other skin complication, without long-term current use of insulin (CMS/HCC)- Primary documented in this encounter [facility] HealthcareEvaluation note* Diagnosis Type 2 diabetes [...] complication, without long-term current use of insulin (CMS/[facility] [place]) S/P hernia repair Other postprocedural status Hypertriglyceridemia (CMS/HCC) Pure hyperglyceridemia Overactive bladder Hypertonicity of bladder Encounter for subsequent annual wellness visit (AWV) in Medicare patient Type 2 diabetes mellitus with other skin complication, without long-term current use of insulin ([facility] [place])- Primary Hypertriglyceridemia (CMS/HCC) Pure hyperglyceridemia Anxiety and depression (CMS/HCC) Primary hypertension (CMS/HCC) Unspecified essential hypertension Overactive bladder Hypertonicity of bladder Gastroesophageal reflux disease without esophagitis Esophageal reflux Morbid obesity (CMS/[facility] [place]) Morbid obesity BMI 50.0-59.9, adult ([facility] [place]) Hidradenitis suppurativa Hidradenitis Neuropathy Mononeuritis of unspecified site Lung nodule- Primary Other diseases of lung, not elsewhere classified Hidradenitis suppurativa- Primary Hidradenitis Primary hypertension (CMS/HCC)- Primary Unspecified essential hypertension Type 2 diabetes mellitus without complication, without long-term current use of insulin ([facility]/HCC) Hidradenitis suppurativa Hidradenitis Morbid obesity (CMS/HCC) Morbid obesity BMI 50.0-59.9, adult ([facility] [place]) Hidradenitis suppurativa- Primary Hidradenitis High risk medication use documented in this encounter [facility] HealthcareEvaluation note* Diagnosis Type 2 diabetes mellitus with other skin complication, without long-term current use of insulin ([facility] [place])- Primary Hypertriglyceridemia (CMS/HCC) Pure hyperglyceridemia Anxiety and [...] (CMS/HCC)- Primary documented in this encounter [facility] HealthcareEvaluation note* Diagnosis Type 2 diabetes mellitus with other skin complication, without long-term current use of insulin (CMS/HCC)- Primary Hypertriglyceridemia (CMS/HCC) Pure hyperglyceridemia Anxiety and depression (CMS/HCC) Morbid (severe) obesity due to excess calories (E66.01) Body mass index [BMI] 50.0-59.9, adult (Z68.43) Primary hypertension (CMS/HCC) Unspecified essential hypertension Hidradenitis suppurativa Hidradenitis Former tobacco use BMI 50.0-59.9, adult ([facility] [place]) Ventral hernia without obstruction or gangrene Unspecified ventral hernia without mention of obstruction or gangrene Primary hypertension ([facility]/HCC)- Primary Unspecified essential hypertension Anxiety and depression ([facility]/HCC) Type 2 diabetes mellitus with other skin complication, without long-term current use of insulin ([facility] [place]) S/P hernia repair Other postprocedural status Hypertriglyceridemia (CMS/[facility] [place]) Pure hyperglyceridemia Overactive bladder Hypertonicity of bladder Encounter for subsequent annual wellness visit (AWV) in Medicare patient Type 2 diabetes mellitus with other skin complication, without long-term current use of insulin ([facility] [place])- Primary Hypertriglyceridemia ([facility]/HCC) Pure hyperglyceridemia Anxiety and depression ([facility] [place]) Primary hypertension ([facility] [place]) Unspecified essential hypertension Overactive bladder Hypertonicity of bladder Gastroesophageal reflux disease without esophagitis Esophageal reflux Morbid obesity ([facility] [place]) Morbid obesity BMI 50.0-59.9, adult ([facility] [place]) Hidradenitis suppurativa Hidradenitis Neuropathy Mononeuritis of unspecified site Lung nodule- Primary Other diseases of lung, not elsewhere classified Hidradenitis suppurativa- Primary Hidradenitis Primary hypertension ([facility]/HCC)- Primary Unspecified essential hypertension Type 2 diabetes mellitus without complication, without long-term current use of insulin ([facility] [place]) Hidradenitis suppurativa Hidradenitis Morbid obesity ([facility] [place]) Morbid obesity BMI 50.0-59.9, adult ([facility] [place]) Primary hypertension ([facility]/HCC)- Primary Unspecified essential hypertension Type 2 diabetes mellitus with diabetic polyneuropathy ([facility] [place]) Morbid (severe) obesity due to excess calories ([facility] [place]) Body mass index (BMI) 50.0-59.9, adult ([facility] [place]) Type 2 diabetes mellitus with other skin complications ([facility]/HCC) Type 2 diabetes mellitus without complication, without long-term current use of insulin ([facility] [place]) Hidradenitis suppurativa Hidradenitis Anxiety and depression ([facility]/HCC) documented in this encounter [facility] HealthcareEvaluation note* Diagnosis Type 2 diabetes mellitus with other skin complication, without long-term current use of insulin ([facility] [place])- Primary Hypertriglyceridemia (CMS/HCC) Pure hyperglyceridemia Anxiety and [...] obesity (CMS/HCC) Morbid obesity BMI 50.0-59.9, adult (/[facility] [place]) Hidradenitis suppurativa Hidradenitis Neuropathy Mononeuritis of unspecified site Lung nodule- Primary Other diseases of lung, not elsewhere classified Hidradenitis suppurativa- Primary Hidradenitis Primary hypertension (CMS/HCC)- Primary Unspecified essential hypertension Type 2 diabetes mellitus without complication, without long-term current use of insulin (CMS/HCC) Hidradenitis suppurativa Hidradenitis Morbid obesity (CMS/HCC) Morbid obesity BMI 50.0-59.9, adult (CMS/HCC) Primary hypertension (CMS/HCC)- Primary Unspecified essential hypertension Type 2 diabetes mellitus with diabetic polyneuropathy (CMS/HCC) Morbid (severe) obesity due to excess calories (CMS/HCC) Body mass index (BMI) 50.0-59.9, adult ([facility] [place]) Type 2 diabetes mellitus with other skin complications (CMS/HCC) Type 2 diabetes mellitus without complication, without long-term current use of insulin (CMS/HCC) Hidradenitis suppurativa Hidradenitis Anxiety and depression (CMS/HCC) Primary hypertension (CMS/HCC) Unspecified essential hypertension documented in this encounter [facility] HealthcareEvaluation note* Diagnosis Type 2 diabetes mellitus with other skin complication, without long-term current use of insulin- Primary Hypertriglyceridemia (CMS/HCC) Pure hyperglyceridemia Anxiety and depression (CMS/HCC) Morbid (severe) obesity due to excess calories (E66.01) Body mass index [BMI] 50.0-59.9, adult (Z68.43) Primary hypertension (CMS/HCC) Unspecified essential hypertension Hidradenitis suppurativa Hidradenitis Former tobacco use BMI 50.0-59.9, adult ([facility] [place]) Ventral hernia without obstruction or gangrene Unspecified ventral hernia without mention of obstruction or gangrene Primary hypertension (CMS/HCC)- Primary Unspecified essential hypertension Anxiety and depression (CMS/HCC) Type 2 diabetes mellitus with other skin complication, without long-term current use of insulin S/P hernia repair Other postprocedural status Hypertriglyceridemia (CMS/[facility] [place]) Pure hyperglyceridemia Overactive bladder Hypertonicity of bladder Encounter for subsequent annual wellness visit (AWV) in Medicare patient Type 2 diabetes mellitus with other skin complication, without long-term current use of insulin- Primary Hypertriglyceridemia ([facility]/HCC) Pure hyperglyceridemia Anxiety and depression ([facility]/HCC) Primary hypertension ([facility] [place]) Unspecified essential hypertension Overactive bladder Hypertonicity of bladder Gastroesophageal reflux disease without esophagitis Esophageal reflux Morbid obesity ([facility] [place]) Morbid obesity BMI 50.0-59.9, adult ([facility] [place]) Hidradenitis suppurativa Hidradenitis Neuropathy Mononeuritis of unspecified site Lung nodule- Primary Other diseases of lung, not elsewhere classified Hidradenitis suppurativa- Primary Hidradenitis Primary hypertension ([facility]/HCC)- Primary Unspecified essential hypertension Type 2 diabetes mellitus without complication, without long-term current use of insulin Hidradenitis suppurativa Hidradenitis Morbid obesity ([facility]/HCC) Morbid obesity BMI 50.0-59.9, adult ([facility] [place]) Primary hypertension (CMS/HCC)- Primary Unspecified essential hypertension Type 2 diabetes mellitus with diabetic polyneuropathy ([facility] [place]) Morbid (severe) obesity due to excess calories ([facility]/HCC) Body mass index (BMI) 50.0-59.9, adult ([facility]/HCC) Type 2 diabetes mellitus with other skin complications Type 2 diabetes mellitus without complication, without long-term current use of insulin Hidradenitis suppurativa Hidradenitis Anxiety and depression (CMS/HCC) Type 2 diabetes mellitus with other skin complication, without long-term current use of insulin Primary hypertension (CMS/HCC) Unspecified essential hypertension Hypertriglyceridemia ([facility]/HCC) Pure hyperglyceridemia documented in this encounter [facility] HealthcareEvaluation note* Diagnosis Type 2 diabetes mellitus with other skin complication, without long-term current use of insulin- Primary Hypertriglyceridemia (CMS/HCC) Pure hyperglyceridemia Anxiety and depression (CMS/HCC) Morbid (severe) obesity due to excess calories (E66.01) Body mass index [BMI] 50.0-59.9, adult (Z68.43) Primary hypertension ([facility]/HCC) Unspecified essential hypertension Hidradenitis suppurativa Hidradenitis Former tobacco use BMI 50.0-59.9, adult ([facility] [place]) Ventral hernia without obstruction or gangrene Unspecified ventral hernia without mention of obstruction or gangrene Primary hypertension ([facility]/HCC)- Primary Unspecified essential hypertension Anxiety and depression ([facility]/HCC) Type 2 diabetes mellitus with other skin complication, without long-term current use of insulin S/P hernia repair Other postprocedural status Hypertriglyceridemia (CMS/HCC) Pure hyperglyceridemia Overactive bladder Hypertonicity of bladder Encounter for subsequent annual wellness visit (AWV) in Medicare patient Type 2 diabetes mellitus with other skin complication, without long-term current use of insulin- Primary Hypertriglyceridemia ([facility] [place]) Pure hyperglyceridemia Anxiety and depression ([facility]/HCC) Primary hypertension ([facility]/HCC) Unspecified essential hypertension Overactive bladder Hypertonicity of bladder Gastroesophageal reflux disease without esophagitis Esophageal reflux Morbid obesity ([facility]/HCC) Morbid obesity BMI 50.0-59.9, adult ([facility] [place]) Hidradenitis suppurativa Hidradenitis Neuropathy Mononeuritis of unspecified site Lung nodule- Primary Other diseases of lung, not elsewhere classified Hidradenitis suppurativa- Primary Hidradenitis Primary hypertension ([facility]/HCC)- Primary Unspecified essential hypertension Type 2 diabetes mellitus without complication, without long-term current use of insulin Hidradenitis suppurativa Hidradenitis Morbid obesity ([facility]/HCC) Morbid obesity BMI 50.0-59.9, adult ([facility] [place]) Primary hypertension ([facility] [place])- Primary Unspecified essential hypertension Type 2 diabetes mellitus with diabetic polyneuropathy ([facility] [place]) Morbid (severe) obesity due to excess calories ([facility] [place]) Body mass index (BMI) 50.0-59.9, adult ([facility] [place]) Type 2 diabetes mellitus with other skin complications Type 2 diabetes mellitus without complication, without long-term current use of insulin Hidradenitis suppurativa Hidradenitis Anxiety and depression ([facility] [place]) Primary hypertension ([facility] [place]) Unspecified essential hypertension Neuropathy Mononeuritis of unspecified site Anxiety and depression ([facility] [place]) Gastroesophageal reflux disease without esophagitis Esophageal reflux Type 2 diabetes mellitus with other skin complication, without long-term current use of insulin documented in this encounter [facility] HealthcareEvaluation note* Diagnosis Type 2 diabetes mellitus with other skin complication, without long-term current use of insulin ([facility] [place])- Primary Hypertriglyceridemia Pure hyperglyceridemia Anxiety and depression Morbid (severe) obesity due to excess calories (E66.01) Body mass index [BMI] 50.0-59.9, adult (Z68.43) Primary hypertension Unspecified essential hypertension Hidradenitis suppurativa Hidradenitis Former tobacco use BMI 50.0-59.9, adult ([facility] [place]) Ventral hernia without obstruction or gangrene Unspecified ventral hernia without mention of obstruction or gangrene Primary hypertension- Primary Unspecified essential hypertension Anxiety and depression Type 2 diabetes mellitus with other skin complication, without long-term current use of insulin ([facility] [place]) S/P hernia repair Other postprocedural status Hypertriglyceridemia Pure hyperglyceridemia Overactive bladder Hypertonicity of bladder Encounter for subsequent annual wellness visit (AWV) in Medicare patient Type 2 diabetes mellitus with other skin complication, without long-term current use of insulin ([facility] [place])- Primary Hypertriglyceridemia Pure hyperglyceridemia Anxiety and depression Primary hypertension Unspecified essential hypertension Overactive bladder Hypertonicity of bladder Gastroesophageal reflux disease without esophagitis Esophageal reflux Morbid obesity ([facility] [place]) Morbid obesity BMI 50.0-59.9, adult ([facility] [place]) Hidradenitis suppurativa Hidradenitis Neuropathy Mononeuritis of unspecified site Lung nodule- Primary Other diseases of lung, not elsewhere classified Hidradenitis suppurativa- Primary Hidradenitis Primary hypertension- Primary Unspecified essential hypertension Type 2 diabetes mellitus without complication, without long-term current use of insulin (HCC) Hidradenitis suppurativa Hidradenitis Morbid obesity (CMS-HCC) Morbid obesity BMI 50.0-59.9, adult ([facility] [place]) Primary hypertension- Primary Unspecified essential hypertension Type 2 diabetes mellitus with diabetic polyneuropathy (HCC) Morbid (severe) obesity due to excess calories (CMS-[facility] [place]) Body mass index (BMI) 50.0-59.9, adult ([facility] [place]) Type 2 diabetes mellitus with other skin complications (HCC) Type 2 diabetes mellitus without complication, without long-term current use of insulin (HCC) Hidradenitis suppurativa Hidradenitis Anxiety and depression Hidradenitis suppurativa- Primary Hidradenitis High risk medication use documented in this encounter [facility] No data available for this section [facility] Apprema Summary Purpose Family History No Family History [...] Carrillo NP [address] [place] [address] [facility] [address] [facility] [place] [address] Referral ID Status Reason Start Date Expiration Date V isits Requested Visits Authorized [id number] Pending Review 06/15/2024 12/12/2024 1 1 Additional Source Comments Patient Care team informatio n (unrecognized section and content) Stem Maker Relationship Specialty Start Date End Date Casey Silva MD [address] [place] [id number] PCP - General Family Medicine 09/20/23 Joan Carrillo NP [address] [place] [phone] Nurse Practitioner Family Medicine 09/18/23 Stem Maker Relationship Specialty Start Date End Date Casey Silva MD [address] [place] [phone] PCP - General Family Medicine 09/20/23 Joan Carrillo NP [address] [place] [phone] Nurse Practitioner Family Medicine 09/18/23 Stem Maker Relationship Specialty Start Date End Date Casey Silva MD [address] [place] [phone] PCP - General Family Medicine 09/20/23 Joan Carrillo NP [address] [place] [phone] Nurse Practitioner Family Medicine 09/18/23 Stem Maker Relationship Specialty Start Date End Date Casey Silva MD [address] [place] [phone] PCP - General Family Medicine 09/20/23 Joan Carrillo NP [address] [place] [phone] Nurse Practitioner Family Medicine 09/18/23 Stem Maker Relationship Specialty Start Date End Date Casey Silva MD [address] [place] [phone] PCP - General Family Medicine 09/20/23 Joan Carrillo NP [address] [place] [phone] Nurse Practitioner Family Medicine 09/18/23 Stem Maker Relationship Specialty Start Date End Date Casey Silva MD [address] [place] [phone] PCP - General Family Medicine 09/20/23 Joan Carrillo NP [address] [place] [phone] Nurse Practitioner Family Medicine 09/18/23 Stem Maker Relationship Specialty Start Date End Date Casey Silva MD [address] [place] [phone] PCP - General Family Medicine 09/20/23 Joan Carrillo NP [address] [place] [address] Nurse Practitioner Family Medicine 09/18/23 Stem Maker Relationship Specialty Start Date End Date Casey Silva MD [address] [place] [address] PCP - General Family Medicine 09/20/23 Joan Carrillo NP [address] [place] [address] Nurse Practitioner Family Medicine 09/18/23 Stem Maker Relationship Specialty Start Date End Date Casey Silva MD [address] [place] [address] PCP - General Family Medicine 09/20/23 Joan Carrillo NP [address] [place] [address] Nurse Practitioner Family Medicine 09/18/23 Stem Maker Relationship Specialty Start Date End Date Casey Silva MD [address] [place] [address] PCP - General Family Medicine 09/20/23 Joan Carrillo NP [address] [place] [address] Nurse Practitioner Family Medicine 09/18/23 Stem Maker Relationship Specialty Start Date End Date Casey Silva MD [address] [place] [address] PCP - General Family Medicine 09/20/23 Joan Carrillo NP [address] [place] [address] Nurse Practitioner Family Medicine 09/18/23 Stem Maker Relationship Specialty Start Date End Date Casey Silva MD [address] [place] [address] PCP - General Family Medicine 09/20/23 Joan Carrillo NP [address] [place] [address] Nurse Practitioner Family Medicine 09/18/23 Stem Maker Relationship Specialty Start Date End Date Casey Silva MD [address] [place] [address] PCP - General Family Medicine 09/20/23 Joan Carrillo NP [address] [place] [address] Nurse Practitioner Family Medicine 09/18/23 Stem Maker Relationship Specialty Start Date End Date Casey Silva MD [address] [place] [address] PCP - General Family Medicine 09/20/23 Joan Carrillo NP [address] [place] [address] Nurse Practitioner Family Medicine 09/18/23 Stem Maker Relationship Specialty Start Date End Date Casey Silva MD [address] [place] [address] PCP - General Family Medicine 09/20/23 Joan Carrillo NP [address] [place] [address] Nurse Practitioner Family Medicine 09/18/23 Stem Maker Relationship Specialty Start Date End Date Casey Silva MD [address] [place] [address] PCP - General Family Medicine 09/20/23 Joan Carrillo NP [address] [place] [address] Nurse Practitioner Family Medicine 09/18/23 Stem Maker Relationship Specialty Start Date End Date Casey Silva MD [address] [place] [address] PCP - General Family Medicine 09/20/23 Joan Carrillo NP [address] [place] [address] Nurse Practitioner Family Medicine 09/18/23 Stem Maker Relationship Specialty Start Date End Date Casey Silva MD [address] [place] [address] PCP - General Family Medicine 09/20/23 Joan Carrillo NP [address] [place] [address] Nurse Practitioner Family Medicine 09/18/23 Stem Maker Relationship Specialty Start Date End Date Casey Silva MD [address] [place] [address] PCP - General Family Medicine 09/20/23 Joan Carrillo NP [address] [place] [address] Nurse Practitioner Family Medicine 09/18/23 Stem Maker Relationship Specialty Start Date End Date Casey Silva MD [address] [place] [address] PCP - General Family Medicine 09/20/23 Joan Carrillo NP [address] [place] [address] Nurse Practitioner Family Medicine 09/18/23 Stem Maker Relationship Specialty Start Date End Date Casey Silva MD [address] [place] [address] PCP - General Family Medicine 09/20/23 Joan Carrillo NP [address] [place] [address] Nurse Practitioner Family Medicine 09/18/23 Stem Maker Relationship Specialty Start Date End Date Casey Silva MD [address] [place] [address] PCP - General Family Medicine 09/20/23 Joan Carrillo NP [address] [place] [address] Nurse Practitioner Family Medicine 09/18/23 Stem Maker Relationship Specialty Start Date End Date Casey Silva MD [address] [place] [address] PCP - General Family Medicine 09/20/23 Joan Carrillo NP [address] [place] [address] Nurse Practitioner Family Medicine 09/18/23 Stem Maker Relationship Specialty Start Date End Date Casey Silva MD [address] [place] [address] PCP - General Family Medicine 09/20/23 Joan Carrillo NP [address] [place] [address] Nurse Practitioner Family Medicine 09/18/23 Stem Maker Relationship Specialty Start Date End Date Casey Silva MD [address] [place] [address] PCP - General Family Medicine 09/20/23 Joan Carrillo NP [address] [place] [address] Nurse Practitioner Family Medicine 09/18/23 Stem Maker Relationship Specialty Start Date End Date Casey Silva MD [address] [place] [address] PCP - General Family Medicine 09/20/23 Joan Carrillo NP [address] [place] [address] Nurse Practitioner Family Medicine 09/18/23 Stem Maker Relationship Specialty Start Date End Date Casey Silva MD [address] [place] [address] PCP - General Family Medicine 09/20/23 Joan Carrillo NP [address] [place] [address] Nurse Practitioner Family Medicine 09/18/23 Stem Maker Relationship Specialty Start Date End Date Casey Silva MD [address] [place] [address] PCP - General Family Medicine 09/20/23 Joan Carrillo NP [address] [place] [address] Nurse Practitioner Family Medicine 09/18/23 Stem Maker Relationship Specialty Start Date End Date Casey Silva MD [address] [place] [address] PCP - General Family Medicine 09/20/23 Joan Carrillo NP [address] [place] [address] Nurse Practitioner Family Medicine 09/18/23 (unrecognized sect [...] CREATED AUTHOR AUTHOR'S ORGANIZ ATION 03/06/2024 [facility] DATE CREATED AUTHOR AUTHOR'S ORGANIZ ATION 03/15/2024 [facility] DATE CREATED AUTHOR AUTHOR'S ORGANIZ ATION 03/16/2024 [facility] DATE CREATED AUTHOR AUTHOR'S ORGANIZ ATION 03/17/2024 [facility] DATE CREATED AUTHOR AUTHOR'S ORGANIZ ATION 03/23/2024 [facility] DATE CREATED AUTHOR AUTHOR'S ORGANIZ ATION 03/24/2024 [facility] DATE CREATED AUTHOR AUTHOR'S ORGANIZ ATION 03/25/2024 [facility] DATE CREATED AUTHOR AUTHOR'S ORGANIZ ATION 03/26/2024 [facility] DATE CREATED AUTHOR AUTHOR'S ORGANIZ ATION 03/29/2024 [facility] DATE CREATED AUTHOR AUTHOR'S ORGANIZ ATION 04/10/2024 [facility] DATE CREATED AUTHOR AUTHOR'S ORGANIZ ATION 04/19/2024 [facility] DATE CREATED AUTHOR AUTHOR'S ORGANIZ ATION 07/02/2024 [facility] DATE CREATED AUTHOR AUTHOR'S ORGANIZ ATION 03/09/2025 [facility] Reason for Visit (unrecogniz ed section and content) Reason Onset Date Comments Med Refill 06/05/2024 Reason Onset Date Comments Med Refill 07/13/2024 Reason Onset Date Comments Med Refill 07/27/2024 Reason Onset Date Comments Med Refill 08/10/2024 Reason Comments Med Refill Reason Comments Rash Specialty Diagnoses / Procedures Referred By Contac t Referred To Contact Dermatology Diagnoses Hidradenitis suppurativa Procedures ID OFFICE/OUTPATIENT [facility] HIGH MDM 60 MINUTES Joan Carrillo NP [address] [place] [address] Phone: tel: fax: Alexandre Daniel MD [address] [address] Phone: tel: fax: Referral ID Status Reason Start Date Expiration Date V isits Requested Visits Authorized [id number] Closed Specialty Services Required 06/25/2024 12/22/2024 1 1 Reason Onset Date Comments Med Refill 11/17/2024 Reason Comments Med Refill Reason Onset Date Comments Med Refill 01/11/2025 Reason Comments Follow-up FOR RECORDS PERTAINING TO PATIENTS WHO ARE [...] BE BASED ON THE PRIMARY CLINICAL RECORDS. [facility]. provides no warranty or guarantee of the accuracy or completeness of information in this document.
[2025-03-11 10:27] LABS: Hematocrit 42.2 % (42.0-54.0); Hemoglobin 13.9 g/dL (14.0-18.0); Immature Granulocytes Abs Auto 0.06 10^3/uL (0.00-0.03); Immature Granulocytes Pct Auto 0.4 % (0.0-0.5); Lymphocytes Absolute Auto 2.1 10^3/uL (1.2-3.8); Mean Corpuscular HGB Conc 32.9 g/dL (29.9-35.2); Mean Corpuscular Hemoglobin 27.8 pg (25.9-34.0); Mean Corpuscular Volume 84.4 fL (80.0-94.0); Platelet Count 339 10^3/uL (150-450); Red Blood Count 5.00 10^6/uL (4.70-6.10); White Blood Count 14.6 10^3/uL (4.0-11.0)
[2025-03-11 11:03] LABS: Anion Gap 15.4; Blood Urea Nitrogen 14.0 mg/dL (7.0-18.0); Calcium 9.0 mg/dL (8.5-10.1); Carbon Dioxide 25.2 mmol/L (21.0-32.0); Chloride 101 mmol/L (98-107); Cholesterol 93 mg/dL (<=200); Estimated GFR (African America >60 (>=60 mL/min/1.73m^2); Estimated GFR (Non-African Ame >60 (>=60 mL/min/1.73m^2); Glucose 357 mg/dL (74-106); HDL Cholesterol 42 mg/dL (40-60); Potassium 3.6 mmol/L (3.5-5.1); Sodium 138 mmol/L (136-145); Triglycerides 192 mg/dL (<=150); VLDL CHOLESTEROL 38.4 mg/dL
[2025-03-11 15:49] LABS: Microalbum Creatinine Ratio Ur 113.9 mg/g (0.0-29.9)
[2025-03-11 16:09] LABS: Glucose Urine UA >=1000 mg/dL (NEGATIVE)
[2025-03-11 17:00] LABS: Cast Seen? NONE SEEN #/LPF (NONE SEEN); Crystals Seen? None Seen #/HPF (None Seen)
== END 2025-03-11 09:28 | disposition home or self-care (01) ==
LOC: LAB 09:27
PROVIDERS: PCP Nurse Practitioner; Visit Provider Nurse Practitioner
DX: E78.2 Mixed hyperlipidemia (principal); I10 Essential (primary) hypertension; E11.9 Type 2 diabetes mellitus without complications
CPT/HCPCS: 36415; 80048; 80061; 81001; 82043; 82570; 85025